=== PATIENT | female | born 1965 | race African-American/Black ===

== ENCOUNTER 2020-09-01 08:04 | Outpatient (REF) | payer MEDICAID, SELFPAY | END 2020-09-01 08:05 | disposition home or self-care (01) | LOC: HO.LAB 08:04 | PROVIDERS: PCP Internal Medicine; Visit Provider Nurse Practitioner Family | DX: M53.3 Sacrococcygeal disorders, not elsewhere classified (principal); E11.40 Type 2 diabetes mellitus with diabetic neuropathy, unspecified; M32.9 Systemic lupus erythematosus, unspecified; G56.03 Carpal tunnel syndrome, bilateral upper limbs; M25.551 Pain in right hip; M25.552 Pain in left hip | CPT/HCPCS: 99202 ==

== ENCOUNTER → 2021-09-13 13:20 | Outpatient (BNVA) | payer OTHER, SELFPAY | PROVIDERS: PCP Internal Medicine; Visit Provider Internal Medicine Rheumatology | DX: M79.7 Fibromyalgia (principal); E11.40 Type 2 diabetes mellitus with diabetic neuropathy, unspecified; M32.9 Systemic lupus erythematosus, unspecified; F32.A Depression, unspecified | CPT/HCPCS: 99212 ==

== ENCOUNTER 2021-10-29 09:41 | Outpatient (REF) | payer OTHER, SELFPAY ==
[2021-10-29 09:50] LABS: MANUAL DIFF FLAG NO
[2021-10-29 10:50] LABS: Basophils Percent Auto 0.7 % (0-2); Eosinophils Absolute Auto 0.2 X10*3/uL (0.0-0.4); Eosinophils Percent Auto 2.8 % (0-4); Hematocrit 39.9 % (37.0-47.0); Hemoglobin 12.9 g/dl (12.0-16.0); Imm Gran Abs Auto 0.01 X10*3/uL (0.00-0.03); Imm Gran Pct Auto 0.2 % (0.0-0.4); Lymphocytes Absolute Auto 2.7 X10*3/uL (1.2-4.9); Lymphocytes Percent Auto 45.1 % (20-40); Mean Corpuscular HGB Conc 32.3 g/dl (31.0-35.0); Mean Corpuscular Hemoglobin 28.9 pg (27.0-33.0); Mean Corpuscular Volume 89.5 fL (80.0-98.0); Mean Platelet Volume 11.1 fL (9.4-12.3); Monocytes Absolute Auto 0.3 X10*3/uL (0.1-1.2); Monocytes Percent Auto 5.5 % (2-11); Neutrophils Absolute Auto 2.8 x10*3/uL (2.0-8.3); Neutrophils Percent Auto 45.7 % (45-73); Platelet Count 227 X10*3/uL (160-400); Red Blood Count 4.46 X10*6/uL (4.20-5.50); Red Cell Distribution Width 14.5 % (11.0-16.0)
[2021-10-29 11:12] LABS: C Reactive Protein 1.07 mg/dL (< or = 0.50); Estimated Glomerular Filt Rate > 60
[2021-11-01 12:07] LABS: Complement C3 131 mg/dL (83-193)
[2021-11-02 22:32] LABS: Anti DNA DS Antibody 2 IU/mL
== END 2021-10-29 09:42 | disposition home or self-care (01) ==
LOC: HO.LAB 09:41
PROVIDERS: PCP Internal Medicine; Visit Provider Internal Medicine Rheumatology
DX: M79.7 Fibromyalgia (principal); M32.9 Systemic lupus erythematosus, unspecified
CPT/HCPCS: 36415; 82565; 85025; 86140; 86160; 86225

== ENCOUNTER → 2022-02-14 13:41 | Outpatient (BNVA) | payer OTHER, SELFPAY | PROVIDERS: PCP Internal Medicine; Visit Provider Internal Medicine Rheumatology | DX: M79.7 Fibromyalgia (principal); M32.9 Systemic lupus erythematosus, unspecified; G56.03 Carpal tunnel syndrome, bilateral upper limbs | CPT/HCPCS: 99212 ==

== ENCOUNTER 2022-06-30 09:18 | Outpatient (REF) | payer OTHER, SELFPAY ==
[2022-06-30 09:28] LABS: MANUAL DIFF FLAG NO
[2022-06-30 10:30] LABS: Basophils Percent Auto 0.7 % (0-2); Eosinophils Absolute Auto 0.2 X10*3/uL (0.0-0.4); Eosinophils Percent Auto 2.8 % (0-4); Hematocrit 40.5 % (37.0-47.0); Hemoglobin 12.9 g/dl (12.0-16.0); Imm Gran Abs Auto 0.02 X10*3/uL (0.00-0.03); Imm Gran Pct Auto 0.3 % (0.0-0.4); Lymphocytes Absolute Auto 2.6 X10*3/uL (1.2-4.9); Lymphocytes Percent Auto 43.3 % (20-40); Mean Corpuscular HGB Conc 31.9 g/dl (31.0-35.0); Mean Corpuscular Hemoglobin 28.4 pg (27.0-33.0); Mean Platelet Volume 11.7 fL (9.4-12.3); Monocytes Absolute Auto 0.4 X10*3/uL (0.1-1.2); Monocytes Percent Auto 6.9 % (2-11); Neutrophils Absolute Auto 2.8 x10*3/uL (2.0-8.3); Platelet Count 198 X10*3/uL (160-400); Red Blood Count 4.55 X10*6/uL (4.20-5.50); Red Cell Distribution Width 13.6 % (11.0-16.0); White Blood Count 6.1 X10*3/uL (4.8-10.8)
[2022-06-30 11:17] LABS: Erythrocyte Sedimentation Rate 63 MM/HR (0-20)
[2022-06-30 11:18] LABS: C Reactive Protein 1.68 mg/dL (< or = 0.50); Estimated Glomerular Filt Rate > 60
[2022-06-30 11:49] LABS: Creatinine Urine 161.05 mg/dL; Total Protein Urine Random 16 mg/dL (<12)
== END 2022-06-30 09:19 | disposition home or self-care (01) ==
LOC: HO.LAB 09:18
PROVIDERS: PCP Internal Medicine; Visit Provider Internal Medicine Rheumatology
DX: M32.9 Systemic lupus erythematosus, unspecified (principal)
CPT/HCPCS: 36415; 82565; 84156; 85025; 85652; 86140

== ENCOUNTER → 2022-07-05 10:52 | Outpatient (BNVA) | payer OTHER, SELFPAY | PROVIDERS: PCP Internal Medicine; Visit Provider Internal Medicine Rheumatology | DX: M79.7 Fibromyalgia (principal); G56.03 Carpal tunnel syndrome, bilateral upper limbs; M47.816 Spondylosis without myelopathy or radiculopathy, lumbar region; M32.9 Systemic lupus erythematosus, unspecified | CPT/HCPCS: 99212 ==

== ENCOUNTER 2022-08-11 01:57 | Emergency (ER) | payer OTHER, SELFPAY ==
--- NOTE | ~2022-08-11 | CT_ITS ---
EXAMINATION: CT ABDOMEN AND PELVIS WITHOUT CONTRAST CLINICAL INFORMATION: Abdominal pain. History of pancreatitis. COMPARISON: None available. TECHNIQUE: Multidetector volumetric imaging was performed from the superior aspect of the liver through the pubic symphysis. Sagittal and coronal reformatted images were obtained on the technologist's workstation. This CT examination was performed using dose optimization techniques as appropriate, variously including the following: *Automated exposure control *Adjustment of mA and/or kV according to patient size (this includes techniques or standardized protocols for targeted exams where dose is matched to indication/reason for exam; i.e. extremities or head) *Use of iterative reconstruction technique DLP: 962 mGy-cm FINDINGS: LUNG BASES: The visualized lung bases are unremarkable. LIVER, GALLBLADDER, AND BILIARY TREE: The liver is normal in size, shape, and attenuation. No focal hepatic lesion or biliary ductal dilatation is present. Cholecystectomy. PANCREAS: Unremarkable. SPLEEN: Unremarkable. ADRENAL GLANDS: There is a 2.0 cm nodule in the left adrenal gland measuring -8 HU compatible with a benign lipid rich adenoma. No follow-up imaging recommended. Normal right adrenal gland. KIDNEYS AND URETERS: The kidneys are normal in size, shape, and attenuation. No hydronephrosis, hydroureter, or calculi seen. There is a 2.7 cm simple fluid attenuating cyst in the lower pole of left kidney. No follow-up imaging recommended. No perinephric stranding. BLADDER: Unremarkable. GASTROINTESTINAL TRACT: The small and large bowel are unremarkable. The appendix is unremarkable. ABDOMINAL WALL: No significant hernia is appreciated. LYMPH NODES: Normal. VASCULAR: Unremarkable. PELVIC VISCERA: There are a few uterine fibroids which measure up to 4.3 cm. No adnexal abnormalities. OSSEOUS STRUCTURES: No acute or suspicious osseous abnormalities. CT/CT abdomen pelvis wo IV con IMPRESSION: * No acute findings within the abdomen or pelvis to explain the patient's symptomatology. Specifically, the pancreas is unremarkable. * Cholecystectomy. * Leiomyomatous uterus. .
[2022-08-11 02:04] VITALS: BP 126/78; PULSE 103; RESP 18; TEMP 36.8; O2SAT 100; BMI 38.4
[2022-08-11 02:09] VITALS: BP 121/78; PULSE 104; RESP 18; O2SAT 98
--- NOTE | 2022-08-11 02:38 | ED_ITS ---
HPI - Abdominal Pain General Chief Complaint: Abdominal Pain Stated Complaint: pancreatic pain Time Seen by Provider: 08/11/22 02:37 Source: patient Mode of arrival: ambulatory Limitations: no limitations History of Present Illness HPI narrative: Patient history of pancreatitis more than 5 years ago comes here for diffuse abdominal pain mostly in upper abdomen associated with diarrhea for last 1 month 6 to 7 times a day watery stool and nausea no vomiting pain does not get worse after eating food patient was seen by PCP earlier labs were done and had slightly elevated lipase to 83 patient went to [facility] for [facility] scan which was not done and patient came here. Patient is status post cholecystectomy no urine complaints no fever or chills Related Data Home Medications Medication Instructions Recorded Confirmed metformin 1,000 mg tablet 1,000 mg PO BID 09/01/20 07/05/22 olmesartan 40 mg tablet 40 mg PO DAILY 09/01/20 07/05/22 clonidine HCl 0.2 mg tablet 0.2 mg PO BID PRN 09/13/21 07/05/22 duloxetine 60 mg capsule,delayed 60 mg PO DAILY 09/13/21 07/05/22 release insulin glargine 100 unit/mL (3 10 unit subcut QPM 09/13/21 07/05/22 mL) subcutaneous pen (Lantus Solostar U-100 Insulin) insulin lispro 100 unit/mL 1 sliding scale dose subcut 09/13/21 07/05/22 subcutaneous pen (Humalog KwikPen USEASDIRECTD (U-100) Insulin) amlodipine 5 mg tablet 5 mg PO DAILY 02/14/22 07/05/22 hydrochlorothiazide 50 mg tablet 50 mg PO DAILY 07/05/22 07/05/22 oxycodone 5 mg tablet 5 mg PO Q8H PRN pain 07/05/22 07/05/22 quetiapine 50 mg tablet 50 mg PO BEDTIME 07/05/22 07/05/22 zolpidem 10 mg tablet 10 mg PO BEDTIME PRN 07/05/22 07/05/22 Previous Rx's Medication Instructions Recorded hydroxychloroquine 200 mg tablet 200 mg PO BID #180 tabs 10/31/21 gabapentin 600 mg tablet 1,200 mg PO TID #180 tabs 04/15/22 cyclobenzaprine 10 mg tablet 10 mg PO BEDTIME PRN muscle spasm 07/05/22 #30 tabs lidocaine 5 % topical patch 1 patch topical DAILY #30 ea 07/15/22 dicyclomine 20 mg tablet 20 mg PO QID PRN abdominal pain 08/11/22 #20 tabs Allergies Allergy/AdvReac Type Severity Reaction Status Date / Time trazodone AdvReac Severe hives Verified 07/05/22 11:09 Review of Systems Review of Systems Yes all other systems are reviewed and are negative [facility] Past Medical History Surgical History Hx laparoscopic cholecystectomy Hx of section Hx of tubal ligation Family History Family History Brother Diabetes Mother Hypertension Breast cancer, Onset Age: 49 Father Hypertension Maternal Grandmother Breast cancer Maternal Aunt Breast cancer, Onset Age: 53 Social History Social History Household Members: Family Housing: House Alcohol intake: never Patient Tobacco Use Status: Current someday Tobacco user Tobacco use type: Cigarette Cigarette Packs Per Day: 0.5 Smoked in Last 30 Days: Yes Use of substances other than those prescribed or required for medical reasons: No Advance Directives: No Advance Directives Information Provided: No Patient : No service: No Current occupational status: unemployed Physical Exam ED Vital Signs: Vital Signs - 24 hr 08/11/22 02:04 08/11/22 02:09 08/11/22 04:00 Temperature 98.3 F 98.6 F Pulse Rate 103 H 104 H 86 Respiratory Rate 18 18 17 Blood Pressure 126/78 121/78 121/72 Pulse Oximetry 100 98 99 Oxygen Delivery Method Room Air Room Air Room Air 08/11/22 05:14 Temperature 97.9 F Pulse Rate 85 Respiratory Rate Blood Pressure 111/64 Pulse Oximetry 96 Oxygen Delivery Method Room Air BMI result Body Mass Index 38.4 Appearance: Alert. Oriented X3. No acute distress. Obese Eyes: PERRLA, No Nystagmus ENT: Pharynx normal. Oral Mucosa moist Neck: Normal inspection. Neck supple. CVS: Normal heart rate and rhythm. Pulses normal. Respiratory: No respiratory distress. Equal air entry bilateral, no wheezing/rales/rhonchi Abdomen: Soft mild upper abdominal tenderness no tenderness and right upper quadrant no guarding no rebound tenderness Bowel sounds are present, no mass palpable, no CVA tenderness Skin: Skin warm and dry. Normal skin color. Normal skin turgor. Extremities: No lower extremity edema. No calf tenderness Neuro: Oriented X 3. No motor deficit. No sensory deficit.No cerebellar signs , cranial nerves II-XII intact Medical Decision Making Medical Decision Making [facility] Narrative: Patient with nonspecific complaints with chronic diarrhea clinically does not look like pancreatitis CT scan negative for inflammation of the pancreas area lipase was normal will discharge patient home Bentyl for chronic abdominal pain Differential Diagnosis Gastritis/pancreatitis/gastroenteritis Lab Data [facility] Lab Attestation statement: I reviewed the patient's lab results. 08/11/22 03:12 08/11/22 03:12 Labs: Lab Results 08/11/22 08/11/22 Range/Units 03:12 03:12 WBC 7.0 (4.8-10.8) X10*3/uL RBC 4.70 (4.20-5.50) X10*6/uL Hgb 13.3 (12.0-16.0) g/dl Hct 41.4 (37.0-47.0) % MCV 88.1 (80.0-98.0) fL MCH 28.3 (27.0-33.0) pg MCHC 32.1 (31.0-35.0) g/dl RDW 13.3 (11.0-16.0) % Plt Count 201 (160-400) X10*3/uL MPV 11.1 (9.4-12.3) fL Immature Gran % (Auto) 0.3 (0.0-0.4) % Neut % (Auto) 43.2 L (45-73) % Lymph % (Auto) 47.1 H (20-40) % Coryell % (Auto) 6.5 (2-11) % Eos % (Auto) 2.3 (0-4) % Baso % (Auto) 0.6 (0-2) % Lymph # (Auto) 3.3 (1.2-4.9) X10*3/uL [place]ell # (Auto) 0.5 (0.1-1.2) X10*3/uL Eos # (Auto) 0.2 (0.0-0.4) X10*3/uL Baso # (Auto) 0.0 (0.0-0.2) X10*3/uL Abs Immat Gran (auto) 0.02 (0.00-0.03) X10*3/uL Absolute Neuts (auto) 3.0 (2.0-8.3) x10*3/uL Absolute Nucleated RBC 0.000 (0.0-0.012) X10*3/uL Nucleated RBC % (auto) 0.0 (0.0-0.2) /100WBC Sodium 141 (135-145) mmol/L Potassium 3.6 (3.3-5.1) mmol/L Chloride 103 (96-108) mmol/L Carbon Dioxide 25 (22-29) mmol/L Anion Gap 17 (12-20) BUN 16 (9-16) mg/dL Creatinine 1.39 (0.5-1.4) mg/dL Estim Creat Clear Calc 62.7 Estimated GFR 39 Random Glucose 348 H (60-115) mg/dL Calcium 10.1 (8.4-10.2) mg/dL Total Bilirubin 0.7 (0.0-1.0) mg/dL AST 16 (5-31) U/L ALT 16 (0-31) U/L Alkaline Phosphatase 100 (39-117) U/L Total Protein 8.1 H (6.5-8.0) g/dL Albumin 3.9 (3.5-5.0) g/dL Lipase 68 (8-78) U/L Medications Administered Discontinued Medications Generic Name Dose Route Start Last Admin Trade Name Freq PRN Reason Stop Dose Admin Sodium Chloride 1,000 mls @ 999 mls/hr 08/11/22 02:58 08/11/22 04:47 Ns IV 08/11/22 03:58 Infused .Q1H1M ONE Infusion Morphine Sulfate 4 mg 08/11/22 02:58 08/11/22 03:13 Morphine Sulfate 4 Mg/Ml Cartridge IVPUSH 08/11/22 02:59 4 mg ONCE ONE Administration Protocol Ondansetron HCl 4 mg 08/11/22 02:58 08/11/22 03:13 Ondansetron Hcl 4 Mg/2 Ml Vial IVPUSH 08/11/22 02:59 4 mg ONCE ONE Administration Discharge Plan Discharge Clinical Impression: Abdominal pain, chronic, generalized Patient Disposition: Home, Self-Care Instructions: Irritable Bowel Syndrome (ED), Chronic Abdominal Pain (ED) Additional Instructions: Cause of abdominal pain is not very clear likely IBS Take Bentyl 1 tablet every 8 hours as needed for chronic pain Follow-up with your PCP Prescriptions: New dicyclomine 20 mg tablet 20 mg PO QID PRN (Reason: abdominal pain) Qty: 20 0RF No Action hydroxychloroquine 200 mg tablet 200 mg PO BID Qty: 180 2RF gabapentin 600 mg tablet 1,200 mg PO TID Qty: 180 3RF lidocaine 5 % adhesive patch,medicated 1 patch topical DAILY Qty: 30 5RF Rx Instructions: leave patch on for 12 hours and then remove metformin 1,000 mg tablet 1,000 mg PO BID olmesartan 40 mg tablet 40 mg PO DAILY clonidine HCl 0.2 mg tablet 0.2 mg PO BID PRN insulin glargine [Lantus Solostar U-100 Insulin] 100 unit/mL (3 mL) insulin pen 10 unit subcut QPM insulin lispro [Humalog KwikPen Insulin] 100 unit/mL insulin pen 1 sliding scale dose subcut USEASDIRECTD duloxetine 60 mg capsule,delayed release(DR/EC) 60 mg PO DAILY amlodipine 5 mg tablet 5 mg PO DAILY quetiapine 50 mg tablet 50 mg PO BEDTIME oxycodone 5 mg tablet 5 mg PO Q8H PRN (Reason: pain) hydrochlorothiazide 50 mg tablet 50 mg PO DAILY zolpidem 10 mg tablet 10 mg PO BEDTIME PRN cyclobenzaprine 10 mg tablet 10 mg PO BEDTIME PRN (Reason: muscle spasm) Qty: 30 1RF
[2022-08-11 03:19] LABS: MANUAL DIFF FLAG NO
[2022-08-11 03:20] LABS: Basophils Percent Auto 0.6 % (0-2); Eosinophils Absolute Auto 0.2 X10*3/uL (0.0-0.4); Eosinophils Percent Auto 2.3 % (0-4); Hematocrit 41.4 % (37.0-47.0); Hemoglobin 13.3 g/dl (12.0-16.0); Imm Gran Abs Auto 0.02 X10*3/uL (0.00-0.03); Imm Gran Pct Auto 0.3 % (0.0-0.4); Lymphocytes Absolute Auto 3.3 X10*3/uL (1.2-4.9); Lymphocytes Percent Auto 47.1 % (20-40); Mean Corpuscular HGB Conc 32.1 g/dl (31.0-35.0); Mean Corpuscular Hemoglobin 28.3 pg (27.0-33.0); Mean Corpuscular Volume 88.1 fL (80.0-98.0); Mean Platelet Volume 11.1 fL (9.4-12.3); Monocytes Absolute Auto 0.5 X10*3/uL (0.1-1.2); Monocytes Percent Auto 6.5 % (2-11); Neutrophils Percent Auto 43.2 % (45-73); Platelet Count 201 X10*3/uL (160-400); Red Cell Distribution Width 13.3 % (11.0-16.0)
[2022-08-11 03:35] LABS: Alanine Aminotransferase 16 U/L (0-31); Albumin Level 3.9 g/dL (3.5-5.0); Alkaline Phosphatase 100 U/L (39-117); Anion Gap 17 (12-20); Aspartate Amino Transferase 16 U/L (5-31); Bilirubin Total 0.7 mg/dL (0.0-1.0); Blood Urea Nitrogen 16 mg/dL (9-16); Calcium 10.1 mg/dL (8.4-10.2); Carbon Dioxide 25 mmol/L (22-29); Chloride 103 mmol/L (96-108); Creatinine Clr Calc Pharmacy 62.7; Estimated Glomerular Filt Rate 39; Glucose Random 348 mg/dL (60-115); Lipase 68 U/L (8-78); Potassium 3.6 mmol/L (3.3-5.1); Sodium 141 mmol/L (135-145); Total Protein 8.1 g/dL (6.5-8.0)
[2022-08-11 04:00] VITALS: BP 121/72; PULSE 86; RESP 17; TEMP 37; O2SAT 99
[2022-08-11 05:14] VITALS: BP 111/64; PULSE 85; TEMP 36.6; O2SAT 96
== END 2022-08-11 05:26 | disposition home or self-care (01) ==
PROVIDERS: Emergency Provider Internal Medicine; PCP Internal Medicine
DX: G89.29 Other chronic pain (principal); R10.84 Generalized abdominal pain; I10 Essential (primary) hypertension; E11.40 Type 2 diabetes mellitus with diabetic neuropathy, unspecified; D68.62 Lupus anticoagulant syndrome; Z79.4 Long term (current) use of insulin; Z79.899 Other long term (current) drug therapy
CPT/HCPCS: 36415; 74176; 80053; 83690; 85025; 96361; 96374; 96375; 99284; 99285; J2270; J2405

== ENCOUNTER 2022-09-13 11:00 | Outpatient (RCR) | payer OTHER, SELFPAY ==
--- NOTE | 2022-08-23 12:04 | MHC.PT.EP ---
[facility] [place] [facility] [place] [facility] [place] [facility] [address] Tr[address] [phone] F: [phone] F: [phone] F: [phone] F: [phone] Physical Therapy Plan of Care Date of Evaluation: Date of Surgery: n/a Diagnosis: OA of lumbar spine Assessment: Patient is a 57 year old female presenting to PT with complaints of pain in her low back. Pt reports onset of pain began 2 years ago due to insidious onset. She presents today with impairments in pain, lumbar ROM, hip strength, posture. Pt's current occupation is none disabled, with baseline physical activities including ambulating, ADLs, standing. 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 Clinical presentation today is most consistent with signs and sx associated with low back pain and pt will benefit from skilled PT 2 week x 4 weeks to address the following problems and impairments noted upon evaluation: pain, lumbar ROM, hip strength, posture. These problems limit the patient with the following functional activities: standing, walking, stair negotiation, any mobile activity . The prescribed treatment plan of care is medically necessary. Co-morbidities of fibromyalgia were identified and taken into considerations of plan of care. Pt was educated on HEP, role of PT, prognosis, POC. Frequency and Duration: The patient will be seen 2 x week x 4 weeks Short Term Goals: Pt will demonstrate improved hip MMT strength by 1/3 grade in 2 weeks for improved lumbopelvic stability. Pt will be able to stand upright without cues and min to mod pain in 2 weeks. Pt will demonstrate improved hip MMT strength by 1/3 grade in 2 weeks for improved functional mobility. Intermediate Goals: Pt will demonstrate improved Keeley score by 10% in 4 weeks for improved functional mobility. Pt will no longer need to rely on rolling chair at home for mobility in 4 weeks for improved access to her home. Pt will demonstrate ability to complete ADLs with min to no pain in 4 weeks for improved independence at home. Treatment Plan: Modalities to reduce pain, spasms and effusion. Manual therapy to restore motion and function. Therapeutic exercise to improve strength and flexibility. Neuromuscular re-education for posture and balance. Therapeutic activities to return to functional activities of daily living. Electronically signed by: Roxana Campo, PT, DPT, ATC Please sign and return to therapist. Thank you for your referral.
--- NOTE | 2022-09-28 16:05 | MHC.PT.DC ---
[facility] [place] Office [place] Office [place] Office [address] [phone] F: [phone] F: [phone] F: [phone] F: [phone] Physical Therapy Discharge Report Diagnosis: OA of lumbar spine Date of Surgery: n/a Date of Evaluation: 08/23/22 Date of Discharge: 09/28/22 Treatments to Date: 4 Cancellations to Date: 2 No Shows to Date: 2 Discharge Status: Visit Non-compliance Discharge Summary: Pt has failed to comply with [facility] [place] policy and no showed 2 appointments. Pt to be d/c at this time per policy. Electronically signed by: Roxana Campo PT, DPT, ATC Please sign and return to therapist. Thank you for your referral.
== END 2022-09-28 16:05 | disposition home or self-care (01) ==
LOC: HO.PTCHIC 11:00
PROVIDERS: PCP Internal Medicine; Visit Provider Internal Medicine Rheumatology
DX: M47.816 Spondylosis without myelopathy or radiculopathy, lumbar region (principal)
CPT/HCPCS: 97110; 97140; 97162

== ENCOUNTER 2022-11-01 10:01 | Outpatient (REF) | payer OTHER, SELFPAY ==
--- NOTE | ~2022-11-01 | XR_ITS ---
EXAMINATION: XR LUMBOSACRAL SPINE CLINICAL INFORMATION: Reason for Exam M47.816 - Spondylosis without myelopathy or radiculopathy, lumbar region COMPARISON: None TECHNIQUE: 3 views of the lumbar spine FINDINGS: 5 nonrib-bearing lumbar-type vertebral bodies. Vertebral body heights are maintained. Alignment is maintained. Mild degenerative disc disease at L5-S1 with loss of disc space height, degenerative endplate spurring and facet arthropathy. Right upper quadrant cholecystectomy clips. XR/XR lumbar spine 2-3V IMPRESSION: Mild degenerative disc disease at L5-S1 with loss of disc space height, degenerative endplate spurring and facet arthropathy.
[2022-11-01 10:15] LABS: MANUAL DIFF FLAG NO
[2022-11-01 10:33] LABS: Basophils Absolute Auto 0.1 X10*3/uL (0.0-0.2); Basophils Percent Auto 0.7 % (0-2); Eosinophils Absolute Auto 0.2 X10*3/uL (0.0-0.4); Eosinophils Percent Auto 2.9 % (0-4); Hematocrit 43.5 % (37.0-47.0); Hemoglobin 13.7 g/dl (12.0-16.0); Imm Gran Abs Auto 0.01 X10*3/uL (0.00-0.03); Imm Gran Pct Auto 0.1 % (0.0-0.4); Lymphocytes Absolute Auto 3.8 X10*3/uL (1.2-4.9); Lymphocytes Percent Auto 53.7 % (20-40); Mean Corpuscular HGB Conc 31.5 g/dl (31.0-35.0); Mean Corpuscular Hemoglobin 28.7 pg (27.0-33.0); Mean Platelet Volume 11.2 fL (9.4-12.3); Monocytes Absolute Auto 0.5 X10*3/uL (0.1-1.2); Monocytes Percent Auto 7.4 % (2-11); Neutrophils Absolute Auto 2.5 x10*3/uL (2.0-8.3); Neutrophils Percent Auto 35.2 % (45-73); Platelet Count 222 X10*3/uL (160-400); Red Blood Count 4.78 X10*6/uL (4.20-5.50); Red Cell Distribution Width 14.1 % (11.0-16.0); White Blood Count 7.1 X10*3/uL (4.8-10.8)
[2022-11-01 10:58] LABS: Creatinine Urine 93.77 mg/dL; Protein/Creatinine Ratio, Ur 0.12 (<0.2); Total Protein Urine Random 11 mg/dL (<12)
[2022-11-01 11:08] LABS: C Reactive Protein 0.99 mg/dL (< or = 0.50); Estimated Glomerular Filt Rate > 60
[2022-11-01 11:15] LABS: Erythrocyte Sedimentation Rate 38 MM/HR (0-20)
== END 2022-11-01 10:02 | disposition home or self-care (01) ==
LOC: HO.XRAY 10:01
PROVIDERS: PCP Internal Medicine; Visit Provider Internal Medicine Rheumatology
DX: M47.816 Spondylosis without myelopathy or radiculopathy, lumbar region (principal); M32.9 Systemic lupus erythematosus, unspecified
CPT/HCPCS: 36415; 72100; 82565; 82570; 84156; 85025; 85652; 86140

== ENCOUNTER 2022-11-07 08:07 | Outpatient (AMB) | payer OTHER, SELFPAY ==
[2022-11-07 08:19] VITALS: BP 124/76; PULSE 89; TEMP 36.4; O2SAT 97; BMI 39.2
--- NOTE | 2022-11-07 08:19 | A.OFFVIS_ITS ---
Intake Vital Signs 11/07/22 08:19 Height 5 ft 9 in Weight 265 lb 6.985 oz BMI 39.2 BP 124/76 Blood Pressure Location Rt brachial Position Sitting Pulse 89 Pulse Source Pulse Oximeter Temp 97.5 F Temp Source Skin Pulse Oximetry (%) 97 Intake Visit Reasons: sle/OAReschedule 11/03 appt, granddaughter appt@10 Intake Note: Pt seen today for follow up on SLE and OA. Reports same pains and aches in back and knees. 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: No Accompanied by: Self / Same As Patient Allergies trazodone Adverse Reaction (Severe, Verified 11/07/22 08:21) hives Medication List - Last Reconciled 11/07/22 by Home Warner MD amlodipine 5 mg PO DAILY clonidine HCl 0.2 mg PO BID PRN cyclobenzaprine 10 mg PO BEDTIME PRN dapagliflozin propanediol (Farxiga) 10 mg PO DAILY dicyclomine 20 mg PO QID PRN duloxetine 20 mg PO BID ergocalciferol (vitamin D2) 1,250 mcg PO QWEEK gabapentin 1,200 mg (2 x 600 mg) PO TID hydrochlorothiazide 50 mg PO DAILY hydroxychloroquine 200 mg PO BID insulin aspart U-100 subcut insulin glargine (Lantus Solostar U-100 Insulin) 10 units subcut QPM lidocaine 5% 1 patch topical DAILY metformin 1,000 mg PO BID mirtazapine 30 mg PO BEDTIME olmesartan 40 mg PO DAILY oxycodone mg PO prazosin 1 mg PO BEDTIME quetiapine 50 mg PO BEDTIME triamcinolone acetonide 0.1% topical zolpidem 10 mg PO BEDTIME PRN HPI HPI Comments History of Present Illness Details The patient returns today for evaluation of her SLE, fibromyalgia, and osteoarthritis. She still gets pain in the knees and lower back. This is more painful when she is more physically active. She does try to walk about a mile a day at the [place] her home. She walks on the track. She remains on hydroxychloroquine 200 mg b.i.d., gabapentin 1200 t.i.d., duloxetine 40 mg daily, cyclobenzaprine at night if needed, and 5 mg oxycodone twice a day if needed. She takes the oxycodone 10 mg tablets and cuts them in half. She has not had any recent skin rashes, oral ulcers or fevers. No blood clots recently. [facility] Surgical History Hx laparoscopic cholecystectomy Hx of tubal ligation Hx of section Family History Brother Diabetes Mother Hypertension Breast cancer, Onset Age: 49 Father Hypertension Maternal Grandmother Breast cancer Maternal Aunt Breast cancer, Onset Age: 53 Social History Household Members: Family Housing: House Alcohol intake: never Patient Tobacco Use Status: Current someday Tobacco user Tobacco use type: Cigarette Cigarette Packs Per Day: 0.5 service: No Current occupational status: unemployed Review of Systems Const Details: Negative for appetite change, weight change, fever, chills, malaise and fatigue Eyes Details: Negative for vision change, dry eyes,headaches and dizziness ENT Details: Negative for hearing change, tinnitus, oral ulcer, nose bleeds and oral dryness. Card Details: Negative chest pain, edema and syncope Resp Details: Negative for SOB, cough and wheezing GI Details: Negative indigestion/heartburn, nausea, abdominal pain, bowel changes, diarrhea, constipation and bloody stool. Skin/Breast Details: Negative for itching, rash, hives, sun sensitivity, and skin cancer Neuro Details: Her hand numbness comes and goes. She has known carpal tunnel syndrome. She was going to consider surgery this summer but got busy and did not schedule it.Negative for epilepsy, palsy, stroke, changes in speech and weakness Psych Details: panic attacks and anxiety are better with current treatment. She denies any sedation during the daytime with the gabapentin. Endo Details: Negative for polyuria and polydypsia Camilo/Lymph Details: Negative for excessive bruising or bleeding. Physical Exam Vital Signs: Last Vital Signs Temp 97.5 F 11/07/22 08:19 Pulse 89 11/07/22 08:19 BP 124/76 11/07/22 08:19 Pulse Ox 97 11/07/22 08:19 BMI result Body Mass Index 39.2 APPEARANCE: Patient in no acute distress EYES no redness, pupils equal and reactive to light, eyelids normal NOSE/SINUS:? Airflow through both nares, no nasal discharge, no bleeding THROAT:? Oral mucosa moist, no ulcerations NECK:? No thyromegaly or masses, no adenopathy, trachea midline. HEART:? Regulrar rhythm, S1-S2 heard, no murmurs, rubs or gallops. LUNG:? Clear to percussion and auscultation ABD:? Normal bowel sounds, no organomegaly, masses or tenderness. EXTREMITIES:? No edema, no calf tenderness, normal peripheral pulses. NEURO:? Oriented and alert x3.? No focal weakness.? Reflexes symmetric.? Gait normal. SKIN:?No other inflammatory or neoplastic lesions.? Normal color and turgor JOINT EXAM:?? Cervical Spine:? Mild pain with extremes of motion.? Mild cervical muscle tenderness. Thoracic Spine:.? No scoliosis.? No tenderness on palpation. Lumbar Spine:.? Alignment normal.? Lumbar pain with flexion at 45 degrees with some mild to moderate spinal and paraspinal tenderness. Chest Wall:.? No tenderness, swelling, increased warmth or erythema. Hands:.? Normal pain-free range of motion with tenderness across all the little joints but no swelling.? No triggering, no thenar atrophy.? She has questionable sensory loss in the fingertips. Wrists:.? Mild pain with extremes of 80 degrees flexion extension with some slight tenderness but no swelling, increased warmth or erythema. Elbows:. Normal pain-free range of motion without tenderness, swelling, increased warmth or erythema. Shoulders:.?? Full range of motion with some trapezial pain with extremes of motion.? Mild anterior and posterior tenderness without adenopathy, weakness, swelling, increased warmth or erythema. Hips:.? Full range of motion without pain. Hip bursa:.? No tenderness. Knees:.?? Normal pain-free range of motion with mild medial tenderness and mild patellofemoral crepitus.? No effusions, swelling, increased warmth or erythema.? Ankles:.? Normal pain-free range of motion with mild tenderness but no swelling, increased warmth or erythema. Feet:.? Normal pain-free range of motion without tenderness, swelling, increased warmth or erythema. Tender points:?Mild tenderness to digital palpation at the occiput, trapezius, second rib, lateral epicondyle, knees, greater trochanter area bilaterally. Results Reviewed Results Reviewed: Laboratory Tests 10/29/21 11/01/22 11/01/22 09:49 10:14 10:14 WBC 7.1 Hgb 13.7 ESR 38 H Creatinine 0.96 C-Reactive Protein 0.99 H Protein/Creatinin Ratio Double Strand DNA Ab 2 Complement C3 131 Complement C4 20 11/01/22 10:17 WBC Hgb ESR Creatinine C-Reactive Protein Protein/Creatinin Ratio 0.12 Double Strand DNA Ab Complement C3 Complement C4 [place] [address] XRay Report Signed Patient: Galina Doyle MR#: [id number] : 1965 Acct:[id number] Age/Sex: 57 / F ADM Date: 11/01/[address]: Home Warner MD Ordering Physician: Home Warner MD Date of Service: 11/01/22 Procedure(s): XR lumbar spine 2-3V Accession Number(s): [id number] cc: Darrel Tony MD; Home Warner MD~ EXAMINATION: XR LUMBOSACRAL SPINE CLINICAL INFORMATION: Reason for Exam M47.816 - Spondylosis without myelopathy or radiculopathy, lumbar region COMPARISON: None TECHNIQUE: 3 views of the lumbar spine FINDINGS: 5 nonrib-bearing lumbar-type vertebral bodies. Vertebral body heights are maintained. Alignment is maintained. Mild degenerative disc disease at L5-S1 with loss of disc space height, degenerative endplate spurring and facet arthropathy. Right upper quadrant cholecystectomy clips. XR/XR lumbar spine 2-3V IMPRESSION: Mild degenerative disc disease at L5-S1 with loss of disc space height, degenerative endplate spurring and facet arthropathy. Dictated By: Giselle Maurice MD Assessment & Plan Assessment & Plan (1) Osteoarthritis of lumbar spine: Code(s): M47.816 - Spondylosis without myelopathy or radiculopathy, lumbar region (2) Fibromyalgia: Code(s): M79.7 - Fibromyalgia (3) Carpal tunnel syndrome, bilateral: Comment: EMG July 2015: moderate to severe bilateral CTS Code(s): G56.03 - Carpal tunnel syndrome, bilateral upper limbs (4) Long-term use of hydroxychloroquine: Code(s): Z79.899 - Other care home (current) drug therapy (5) Lupus: Comment: DISCOID LESIONS, SUB-ACUTE SKIN LESIONS ARTHRALGIAS, MILD PROTEINURIA - resolved; kidney bx 10/2019 - class II nephritis(sees Dr. 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 06/27, 06/28 Code(s): M32.9 - Systemic lupus erythematosus, unspecified Plan SLE with no clear signs of active disease presently. The minimal proteinuria she had has improved. She did have a kidney biopsy 3 years ago that showed some mild class 2 lupus nephritis. The proteinuria now is not detectable. GFR remains stable. She does not have any skin manifestations or mucosal manifestations of SLE. There still are widespread tender spots consistent with her fibromyalgia. She gets low back pain knee pain osteoarthritis. I encouraged her to continue with the exercises she learned in PT. We will stay with current treatment. Follow-up in 6 months is recommended Coding Level of Care Code Est Pt Level 3 (09911) Diagnoses Osteoarthritis of lumbar spine M47.816 Fibromyalgia M79.7 Carpal tunnel syndrome, bilateral G56.03 Long-term use of hydroxychloroquine Z79.899 Lupus M32.9
== END 2022-11-07 08:46 | disposition home or self-care (01) ==
PROVIDERS: PCP Internal Medicine; Visit Provider Internal Medicine Rheumatology
DX: M47.816 Spondylosis without myelopathy or radiculopathy, lumbar region (principal); M79.7 Fibromyalgia; G56.03 Carpal tunnel syndrome, bilateral upper limbs; Z79.899 Other long term (current) drug therapy; M32.9 Systemic lupus erythematosus, unspecified
CPT/HCPCS: 99213

== ENCOUNTER → 2022-11-07 08:07 | Outpatient (BNVA) | payer OTHER, SELFPAY | PROVIDERS: PCP Internal Medicine; Visit Provider Internal Medicine Rheumatology | DX: M32.9 Systemic lupus erythematosus, unspecified (principal); M79.7 Fibromyalgia; M47.816 Spondylosis without myelopathy or radiculopathy, lumbar region; G56.03 Carpal tunnel syndrome, bilateral upper limbs; Z79.891 Long term (current) use of opiate analgesic | CPT/HCPCS: 99212 ==

== ENCOUNTER 2023-05-09 09:06 | Outpatient (REF) | payer MEDICARE, SELFPAY ==
[2023-05-09 10:36] LABS: MANUAL DIFF FLAG NO
[2023-05-09 10:53] LABS: Basophils Percent Auto 0.7 % (0-2); Eosinophils Absolute Auto 0.2 X10*3/uL (0.0-0.4); Eosinophils Percent Auto 2.8 % (0-4); Hematocrit 41.4 % (37.0-47.0); Hemoglobin 13.6 g/dl (12.0-16.0); Imm Gran Abs Auto 0.02 X10*3/uL (0.00-0.03); Imm Gran Pct Auto 0.4 % (0.0-0.4); Lymphocytes Absolute Auto 2.3 X10*3/uL (1.2-4.9); Lymphocytes Percent Auto 39.5 % (20-40); Mean Corpuscular HGB Conc 32.9 g/dl (31.0-35.0); Mean Corpuscular Hemoglobin 28.9 pg (27.0-33.0); Mean Corpuscular Volume 88.1 fL (80.0-98.0); Mean Platelet Volume 11.8 fL (9.4-12.3); Monocytes Absolute Auto 0.3 X10*3/uL (0.1-1.2); Monocytes Percent Auto 5.8 % (2-11); Neutrophils Absolute Auto 2.9 x10*3/uL (2.0-8.3); Neutrophils Percent Auto 50.8 % (45-73); Platelet Count 195 X10*3/uL (160-400); Red Cell Distribution Width 13.3 % (11.0-16.0); White Blood Count 5.7 X10*3/uL (4.8-10.8)
[2023-05-09 11:24] LABS: Alanine Aminotransferase 13 U/L (0-31); Albumin Level 3.7 g/dL (3.5-5.0); Alkaline Phosphatase 105 U/L (39-117); Anion Gap 12 (12-20); Aspartate Amino Transferase 12 U/L (5-31); Bilirubin Total 0.6 mg/dL (0.0-1.0); Blood Urea Nitrogen 8 mg/dL (9-16); C Reactive Protein 1.05 mg/dL (< or = 0.50); Calcium 9.6 mg/dL (8.4-10.2); Carbon Dioxide 23 mmol/L (22-29); Chloride 108 mmol/L (96-108); Estimated Glomerular Filt Rate > 60; Glucose Random 272 mg/dL (60-115); Potassium 4.2 mmol/L (3.3-5.1); Sodium 139 mmol/L (135-145); Total Protein 8.2 g/dL (6.5-8.0); Uric Acid 4.2 mg/dL (2.4-5.7)
[2023-05-09 11:25] LABS: Erythrocyte Sedimentation Rate 38 MM/HR (0-20); Rheumatoid Factor < 13.0 IU/mL (<15.0)
[2023-05-09 11:44] LABS: HBS Num1 0.11 mIU/mL (0-7.99); HBsAGNum1 0.29 S/CO (0.00-0.99); Hepatitis B Core Antibody Nonreactive (Nonreactive); Hepatitis B Surface Antigen Negative (Negative); ~HepC Num1 0.19 S/CO (0.00-0.79); ~Hepatitis A Antibody IgM Nonreactive (Nonreactive); ~Hepatitis B Surface Antibody NONREACTIVE (Nonreactive); ~Hepatitis C Antibody Nonreactive (Nonreactive)
[2023-05-10 21:58] LABS: Prot Elec - Alpha1 0.3 g/dL (0.2-0.3); Prot Elec - Alpha2 0.6 g/dL (0.5-0.9); Prot Elec - Beta 1 0.6 g/dL (0.4-0.6); Prot Elec - Beta 2 0.6 g/dL (0.2-0.5); Prot Elec - Gamma 1.9 g/dL (0.8-1.7)
[2023-05-10 22:23] LABS: Anti DNA DS Antibody 1 IU/mL; Antibody to SS-A Antigen <1.0 NEG AI (<1.0 NEG); Antibody to SS-B Antigen <1.0 NEG AI (<1.0 NEG); SM/Ribonucleoprotein Ab 6.8 POS AI (<1.0 NEG); Scleroderma 70 Antibody <1.0 NEG AI (<1.0 NEG); Smith Protein 7.2 POS AI (<1.0 NEG)
[2023-05-10 22:29] LABS: Anti-Centromere B Antibodies <1.0 NEG AI (<1.0 NEG)
[2023-05-11 11:43] LABS: Complement C3 102 mg/dL (83-193)
[2023-05-11 12:58] LABS: Cyclic Citrullinated Peptide <16 UNITS
[2023-05-12 08:04] LABS: TS Negative Control Passed; TS Panel A 0; TS Panel B 0; TS Positive Control Passed; TSpotTB Negative (Negative)
[2023-05-12 14:38] LABS: IgA 467 mg/dL (47-310); IgG 1978 mg/dL (600-1640); IgM 145 mg/dL (50-300)
[2023-05-13 12:57] LABS: Vitamin D 25-OH, D2 7 ng/mL; Vitamin D 25-OH, D3 17 ng/mL; Vitamin D 25-OH, Total 24 ng/mL (30-100)
[2023-05-14 13:34] LABS: Anti Nuclear Antibody Screen NEGATIVE (NEGATIVE)
== END 2023-05-09 09:07 | disposition home or self-care (01) ==
LOC: HO.LAB 09:06
PROVIDERS: PCP Internal Medicine; Visit Provider Nurse Practitioner Family
DX: M32.9 Systemic lupus erythematosus, unspecified (principal); D68.62 Lupus anticoagulant syndrome; M79.7 Fibromyalgia; M19.90 Unspecified osteoarthritis, unspecified site; Z79.899 Other long term (current) drug therapy; M79.669 Pain in unspecified lower leg; M19.049 Primary osteoarthritis, unspecified hand; M19.039 Primary osteoarthritis, unspecified wrist; M25.461 Effusion, right knee; M25.462 Effusion, left knee
CPT/HCPCS: 36415; 80053; 82306; 82550; 82784; 84165; 84550; 85025; 85652; 86038; 86140; 86160; 86200; 86225; 86235; 86334; 86431; 86481; 86704; 86706; 86709; 86803; 87340; 99212

== ENCOUNTER 2023-05-09 09:06 | Outpatient (AMB) | payer MEDICARE, SELFPAY ==
--- NOTE | 2023-05-09 09:11 | MHC.OFFVIS ---
Intake Vital Signs 05/09/23 09:14 Height 5 ft 9 in Weight 263 lb 0.183 oz BMI 38.8 BP 140/60 H Blood Pressure Location Rt brachial Position Sitting Pulse 72 Pulse Source Palpation Intake Visit Reasons: SLE/OA/CM Intake Note: Patient last seen 11/07/[address] Warner, presents today for follow up and test results. Inbound Ingredient Logistics Specialist Required: No Accompanied by: Self / Same As Patient Allergies tramadol Allergy (Severe, Verified 05/09/23 09:17) Rash trazodone Adverse Reaction (Severe, Verified 05/09/23 09:12) hives HPI HPI Comments History of Present Illness Details Ms. Mojica 58yoF returns today for follow-up of her SLE, fibromyalgia, and osteoarthritis. The patient wanted to make it very clearly document that she has not being pleased with the way she has been cared for here in the past. She says no attention was given to her concerns, chronic pain and swelling of her joints. She felt her treatment was condescending. 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 However because of her lower back pain and and her knees constantly swelling, she can not managed work anymore. She had to stop working at 54. She still gets pain in the knees and lower back. This is more painful when she is more physically active. She does try to walk about a mile a day at the college near her home. She walks on the track. She remains on hydroxychloroquine 200 mg b.i.d., gabapentin 1200 t.i.d and cyclobenzaprine at night if needed, and 5 mg oxycodone twice a day if needed. She takes the oxycodone 10 mg tablets and cuts them in half. She has not had any recent skin rashes, oral ulcers or fevers since last visit in December 2022. She denies any blood clots recently. History: The minimal proteinuria she had has improved. She did have a kidney biopsy 3 years ago that showed some mild class 2 lupus nephritis. The proteinuria now is not detectable. GFR remains stable. She does not have any skin manifestations or mucosal manifestations of SLE. There still are widespread tender spots consistent with her fibromyalgia. She gets low back pain knee pain osteoarthritis. I encouraged her to continue with the exercises she learned in PT. We will stay with current treatment. Follow-up in 6 months is recommended [facility] Medical History (Updated 05/16/23 @ 23:58 [facility] Joint inflammation of hand and wrist Smoker Pain in the shins Bilateral knee swelling Surgical History Hx laparoscopic cholecystectomy Hx of tubal ligation Hx of section Family History Brother Diabetes Mother Hypertension Breast cancer, Onset Age: 49 Father Hypertension Maternal Grandmother Breast cancer Maternal Aunt Breast cancer, Onset Age: 53 Social History Household Members: Family Housing: House Alcohol intake: never Patient Tobacco Use Status: Current someday Tobacco user Tobacco use type: Cigarette Cigarette Packs Per Day: 0.5 service: No Current occupational status: unemployed Physical Exam Vital Signs: Last Vital Signs Pulse 72 05/09/23 09:14 BP 140/60 H 05/09/23 09:14 BMI result Body Mass Index 38.8 APPEARANCE: Patient in no acute distress EYES no redness, pupils equal and reactive to light, eyelids normal NOSE/SINUS:? Airflow through both nares, no nasal discharge, no bleeding THROAT:? Oral mucosa moist, no ulcerations NECK:? No thyromegaly or masses, no adenopathy, trachea midline. HEART:? Regulrar rhythm, S1-S2 heard, no murmurs, rubs or gallops. LUNG:? Clear to percussion and auscultation ABD:? Normal bowel sounds, no organomegaly, masses or tenderness. EXTREMITIES:? No edema, no calf tenderness, normal peripheral pulses. NEURO:? Oriented and alert x3.? No focal weakness.? Reflexes symmetric.? Gait normal. SKIN:?No other inflammatory or neoplastic lesions.? Normal color and turgor JOINT EXAM:?? Cervical Spine:? Mild pain with extremes of motion.? Mild cervical muscle tenderness. Thoracic Spine:.? No scoliosis.? No tenderness on palpation. Lumbar Spine:.? Alignment normal.? Lumbar pain with flexion at 45 degrees with some mild to moderate spinal and paraspinal tenderness. Chest Wall:.? No tenderness, swelling, increased warmth or erythema. Hands:.? Normal pain-free range of motion with tenderness across all the little joints but no swelling.? No triggering, no thenar atrophy.? She has questionable sensory loss in the fingertips. Wrists:.? Mild pain with extremes of 80 degrees flexion extension with some slight tenderness but no swelling, increased warmth or erythema. Elbows:. Normal pain-free range of motion without tenderness, swelling, increased warmth or erythema. Shoulders:.?? Full range of motion with some trapezial pain with extremes of motion.? Mild anterior and posterior tenderness without adenopathy, weakness, swelling, increased warmth or erythema. Hips:.? Full range of motion without pain. Hip bursa:.? No tenderness. Knees:.?? Normal pain-free range of motion with mild medial tenderness and mild patellofemoral crepitus.? No effusions, swelling, increased warmth or erythema.? Ankles:.? Normal pain-free range of motion with mild tenderness but no swelling, increased warmth or erythema. Feet:.? Normal pain-free range of motion without tenderness, swelling, increased warmth or erythema. Tender points:?Mild tenderness to digital palpation at the occiput, trapezius, second rib, lateral epicondyle, knees, greater trochanter area bilaterally. Results Reviewed Results Reviewed: Laboratory Tests 10/29/21 11/01/22 11/01/22 09:49 10:14 10:14 WBC 7.1 Hgb 13.7 ESR 38 H Creatinine 0.96 C-Reactive Protein 0.99 H Protein/Creatinin Ratio Double Strand DNA Ab 2 Complement C3 131 Complement C4 20 11/01/22 10:17 WBC Hgb ESR Creatinine C-Reactive Protein Protein/Creatinin Ratio 0.12 Double Strand DNA Ab Complement C3 Complement C4 [address] [address] XRay Report Signed Patient: Galina Doyle MR#: [id number] : 1965 Acct:[id number] Age/Sex: 57 / F ADM Date: 11/01/[address]: Home Warner MD Ordering Physician: Home Warner MD Date of Service: 09/26/23 Procedure(s): XR lumbar spine 2-3V Accession Number(s): [id number] cc: Darrel Tony MD; Home Warner MD~ EXAMINATION: XR LUMBOSACRAL SPINE CLINICAL INFORMATION: Reason for Exam M47.816 - Spondylosis without myelopathy or radiculopathy, lumbar region COMPARISON: None TECHNIQUE: 3 views of the lumbar spine FINDINGS: 5 nonrib-bearing lumbar-type vertebral bodies. Vertebral body heights are maintained. Alignment is maintained. Mild degenerative disc disease at L5-S1 with loss of disc space height, degenerative endplate spurring and facet arthropathy. Right upper quadrant cholecystectomy clips. XR/XR lumbar spine 2-3V IMPRESSION: Mild degenerative disc disease at L5-S1 with loss of disc space height, degenerative endplate spurring and facet arthropathy. Dictated By: Giselle Maurice MD Assessment & Plan Assessment & Plan (1) Long-term use of hydroxychloroquine: Code(s): Z79.899 - Other animal care attendant (current) drug therapy (2) Pain in the shins: Code(s): M79.669 - Pain in unspecified lower leg Qualifiers: Laterality: unspecified laterality Qualified Code(s): M79.669 - Pain in unspecified lower leg (3) Joint inflammation of hand and wrist: Code(s): M19.049 - Primary osteoarthritis, unspecified hand; M19.039 - Primary osteoarthritis, unspecified wrist (4) Lupus: Comment: DISCOID LESIONS, SUB-ACUTE SKIN LESIONS ARTHRALGIAS, MILD PROTEINURIA - resolved; kidney bx 10/2019 - class II nephritis(sees Dr. Herrera) + Anti-DNA, Anti-SUPER[employer]OR [employer]VAGE, Anti-Sm, SS-A On hydroxychloroquine - eye exam OK 01/14; 07/17, 05/19, 06/21, 09/24, 12/26. 06/27, 06/28 Code(s): M32.9 - Systemic lupus erythematosus, unspecified (5) Bilateral knee swelling: Code(s): M25.461 - Effusion, right knee; M25.462 - Effusion, left knee Plan #SLE: Historically she has a lupus presentation of discoid rash. Patient has not had that since last visit. She continues on hydroxychloroquine 200 mg b.i.d.. I will obtain updated labs to assess lupus markers. #Luo pain: The patient is a former smoker and is complaining of luo pain. This is concerned for hypertrophic osteoarthritis in the context of lung malignancy. I will obtain x-ray of her luo and a chest x-ray to evaluate further. #Joint inflammation of hands and wrists/Knee pain: I will obtain x-rays and additional labs to evaluate for inflammation. I prescribed a course of prednisone to help patient with overall pain level and swelling that was observed on PE. Patient knows to monitor blood sugar levels on prednisone. I spend 50 minutes reviewing history, evaluating patient, and documenting. Follow-up in 1 month Orders: Orders Comprehensive Met. Panel 05/09/23 Z79.899 - Other animal care attendant (current) drug therapy, D68.62 - Lupus anticoagulant syndrome, M32.9 - Systemic lupus erythematosus, unspecified Complete Blood Count Auto Diff 05/09/23 Z79.899 - Other animal care attendant (current) drug therapy, D68.62 - Lupus anticoagulant syndrome, M32.9 - Systemic lupus erythematosus, unspecified C Reactive Protein 05/09/23 Z79.899 - Other animal care attendant (current) drug therapy, D68.62 - Lupus anticoagulant syndrome, M32.9 - Systemic lupus erythematosus, unspecified Creatine Kinase Total 05/09/23 Z79.899 - Other halfway (current) drug therapy, D68.62 - Lupus anticoagulant syndrome, M32.9 - Systemic lupus erythematosus, unspecified Erythrocyte Sedimentation Rate 05/09/23 Z79.899 - Other halfway (current) drug therapy, D68.62 - Lupus anticoagulant syndrome, M32.9 - Systemic lupus erythematosus, unspecified Immunofixation Pnl, Serum 05/09/23 Z79.899 - Other halfway (current) drug therapy, D68.62 - Lupus anticoagulant syndrome, M32.9 - Systemic lupus erythematosus, unspecified Immunoglobulins,IgG IgA IgM 05/09/23 Z79.899 - Other halfway (current) drug therapy, D68.62 - Lupus anticoagulant syndrome, M32.9 - Systemic lupus erythematosus, unspecified MOI Reflex Titer and Pattern 05/09/23 Z79.899 - Other animal care attendant (current) drug therapy, D68.62 - Lupus anticoagulant syndrome, M32.9 - Systemic lupus erythematosus, unspecified Protein Electrophoresis, Serum 05/09/23 Z79.899 - Other animal care attendant (current) drug therapy, D68.62 - Lupus anticoagulant syndrome, M32.9 - Systemic lupus erythematosus, unspecified Anti DNA DS Antibody 05/09/23 Z79.899 - Other animal care attendant (current) drug therapy, D68.62 - Lupus anticoagulant syndrome, M32.9 - Systemic lupus erythematosus, unspecified Uric Acid 05/09/23 Z79.899 - Other animal care attendant (current) drug therapy, D68.62 - Lupus anticoagulant syndrome, M32.9 - Systemic lupus erythematosus, unspecified Complement C3 05/09/23 Z79.899 - Other animal care attendant (current) drug therapy, D68.62 - Lupus anticoagulant syndrome, M32.9 - Systemic lupus erythematosus, unspecified Vitamin D 25-OH (D2 and D3) 05/09/23 Z79.899 - Other halfway (current) drug therapy, D68.62 - Lupus anticoagulant syndrome, M32.9 - Systemic lupus erythematosus, unspecified Hepatitis A,B,C Profile 05/09/23 Z79.899 - Other animal care attendant (current) drug therapy, D68.62 - Lupus anticoagulant syndrome, M32.9 - Systemic lupus erythematosus, unspecified Anti-Centromere B Antibodies 05/09/23 Z79.899 - Other halfway (current) drug therapy, D68.62 - Lupus anticoagulant syndrome, M32.9 - Systemic lupus erythematosus, unspecified Cyclic Citrullinated Peptide 05/09/23 M25.461 - Effusion, right knee, M25.462 - Effusion, left knee XR knee RT 3V 05/09/23 M79.669 - Pain in unspecified lower leg, M25.461 - Effusion, right knee, M25.462 - Effusion, left knee, M32.9 - Systemic lupus erythematosus, unspecified, F17.200 - Nicotine dependence, unspecified, uncomplicated, M19.049 - Primary osteoarthritis, unspecified hand, M19.039 - Primary osteoarthritis, unspecified wrist XR hand LT min 3V 05/09/23 M19.049 - Primary osteoarthritis, unspecified hand, M19.039 - Primary osteoarthritis, unspecified wrist Sjogren's Antibodies 05/09/23 Z79.899 - Other animal care attendant (current) drug therapy, D68.62 - Lupus anticoagulant syndrome, M32.9 - Systemic lupus erythematosus, unspecified Scleroderma 70 Antibody 05/09/23 Z79.899 - Other halfway (current) drug therapy, D68.62 - Lupus anticoagulant syndrome, M32.9 - Systemic lupus erythematosus, unspecified Complement C4 05/09/23 Z79.899 - Other halfway (current) drug therapy, D68.62 - Lupus anticoagulant syndrome, M32.9 - Systemic lupus erythematosus, unspecified T Spot TB 05/09/23 Z79.899 - Other halfway (current) drug therapy, D68.62 - Lupus anticoagulant syndrome, M32.9 - Systemic lupus erythematosus, unspecified Anti Extractable Nuclear Ag 05/09/23 Z79.899 - Other halfway (current) drug therapy, D68.62 - Lupus anticoagulant syndrome, M32.9 - Systemic lupus erythematosus, unspecified Rheumatoid Factor 05/09/23 M25.461 - Effusion, right knee, M25.462 - Effusion, left knee XR chest 2V 05/09/23 M79.669 - Pain in unspecified lower leg, F17.200 - Nicotine dependence, unspecified, uncomplicated, M32.9 - Systemic lupus erythematosus, unspecified XR knee LT 3V 05/09/23 M79.669 - Pain in unspecified lower leg, M25.461 - Effusion, right knee, M25.462 - Effusion, left knee, M32.9 - Systemic lupus erythematosus, unspecified, M19.049 - Primary osteoarthritis, unspecified hand, M19.039 - Primary osteoarthritis, unspecified wrist XR hand RT min 3V 05/09/23 M19.049 - Primary osteoarthritis, unspecified hand, M19.039 - Primary osteoarthritis, unspecified wrist Medications: New prednisone orally daily; 4 tablets per day x 7 days; 3 tablets per day x 7 days, 2 tablets per day x 7 days 1 tablet per day. 90 tabs 0RF M19.049 - Primary osteoarthritis, unspecified hand, M19.039 - Primary osteoarthritis, unspecified wrist, M79.669 - Pain in unspecified lower leg, M32.9 - Systemic lupus erythematosus, unspecified Coding Level of Care Code Est Pt Level 5 (49020) Diagnoses Long-term use of hydroxychloroquine Z79.899 Pain in luo, unspecified laterality M79.669 Laterality: unspecified laterality Joint inflammation of hand and wrist M19.049; M19.039 Lupus M32.9 Bilateral knee swelling M25.461; M25.462
[2023-05-09 09:14] VITALS: BP 140/60; PULSE 72; BMI 38.8
== END 2023-05-09 10:10 | disposition home or self-care (01) ==
PROVIDERS: PCP Internal Medicine; Visit Provider Nurse Practitioner Family
DX: M32.9 Systemic lupus erythematosus, unspecified (principal); Z79.899 Other long term (current) drug therapy; M79.669 Pain in unspecified lower leg; M19.049 Primary osteoarthritis, unspecified hand; M19.039 Primary osteoarthritis, unspecified wrist; M25.461 Effusion, right knee; M25.462 Effusion, left knee
CPT/HCPCS: 99215

== ENCOUNTER 2023-06-27 12:39 | Outpatient (REF) | payer MEDICARE, SELFPAY ==
--- NOTE | ~2023-06-27 | XR_ITS ---
EXAMINATION: XR CHEST XR BILATERAL KNEES XR BILATERAL HANDS CLINICAL INFORMATION: Knee pain, severe dial pain. History of lupus, smoker. Please assess shins for hypertrophic osteoarthritis. Primary osteoarthritis. TECHNIQUE: 3 views of each knee. 3 views of each hand. 2 views of the chest. COMPARISON: None available. FINDINGS: RIGHT KNEE: Trace joint effusion. Moderate narrowing of the medial compartment. Small tricompartmental osteophytes. Periosteal reaction noted along the posterior aspect of the imaged proximal shaft of the right tibia. LEFT KNEE: Trace joint effusion. Moderate narrowing of the medial compartment. Small tricompartmental osteophytes. Mild, subtle areas of periostitis along the imaged shaft of the proximal left tibia. CHEST: Lung volumes are low. Heart size is normal. There is no gross pneumothorax. Mild degenerative changes in the thoracic spine. Right costophrenic angle blunting may be related to low lung volumes and/or pleural thickening/trace pleural effusion. No gross parenchymal consolidation appreciated to suggest pneumonia, although visualization limited due to low lung volumes. RIGHT HAND: Moderate degenerative changes in the first carpometacarpal joint with joint space narrowing and hypertrophic change. Ulnar minus variance. Cystic lucencies in the scaphoid. Advanced degenerative changes with hypertrophic change in scattered IP joints most notable in the first IP, third PIP and fourth DIP joints. Mild periosteal reaction along the volar, proximal shafts of the second and third digits. LEFT HAND: Moderate degenerative changes in the first carpometacarpal joint with joint space narrowing and hypertrophic change. Ulnar minus variance. Minimal degenerative changes with hypertrophic change in scattered IP joints. Mild periosteal reaction along the volar, proximal shafts of the third, fourth and fifth digits. XR/XR hand LT min 3V IMPRESSION: 1. Moderate degenerative changes bilateral knees. 2. Right costophrenic angle blunting may be related to low lung volumes and/or pleural thickening/trace pleural effusion. CT scan of the chest should be considered for this patient with history of lupus and every day smoker. 3. Moderate degenerative changes bilateral first carpometacarpal joints. 4. Advanced degenerative changes in scattered IP joints of the right hand. 5. Mild periosteal reaction along the volar, proximal shafts of the second and third digits of the right hand and third, fourth and fifth digits of the left hand. 6. Periosteal reaction noted along the posterior aspect of the imaged proximal shaft of the right tibia. Mild, subtle areas of periostitis along the imaged shaft of the partially imaged proximal left tibia. Dedicated views of the lower legs recommended.
[2023-06-27 14:06] LABS: Appearance Urine Cloudy; Color Urine Dark Yellow; Glucose Urine UA 500 mg/dL (Negative); Leukocyte Esterase Urine Negative (Negative); Nitrite Urine Negative (Negative); PH 5.5 (5.0-9.0); Specific Gravity - Urine 1.025 (1.005-1.025); UMIC TRIGGER UA YES; Urine Blood Negative (Negative); Urine Ketones Trace mg/dL (Negative); Urine Protein 30 (1+) mg/dL (Neg-Trace)
[2023-06-27 14:14] LABS: Bacteria Urine 1+ (None Seen); Hyaline Casts Urine 0-2 /LPF (0-2); Other Crystals Urine Present; RBC Urine 0-2 /HPF (0-2); WBC Urine 0-5 /HPF (0-5)
[2023-06-27 14:56] LABS: Creatinine Urine 197.35 mg/dL; Protein/Creatinine Ratio, Ur 0.19 (<0.2); Total Protein Urine Random 37 mg/dL (<12)
== END 2023-06-27 12:40 | disposition home or self-care (01) ==
LOC: HO.XRAY 12:39
PROVIDERS: PCP Internal Medicine; Visit Provider Nurse Practitioner Family
DX: M79.669 Pain in unspecified lower leg (principal); M25.461 Effusion, right knee; M25.562 Pain in left knee; M32.9 Systemic lupus erythematosus, unspecified; M19.049 Primary osteoarthritis, unspecified hand; M19.039 Primary osteoarthritis, unspecified wrist; F17.200 Nicotine dependence, unspecified, uncomplicated
CPT/HCPCS: 71046; 73130; 73562; 81001; 82570; 84156

== ENCOUNTER 2023-07-12 09:53 | Outpatient (AMB) | payer MEDICARE, SELFPAY ==
[2023-07-12 10:09] VITALS: BP 140/72; BMI 38.4
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
== END 2023-07-12 10:39 | disposition home or self-care (01) ==
PROVIDERS: PCP Internal Medicine; Visit Provider Nurse Practitioner Family
DX: Z79.899 Other long term (current) drug therapy (principal); M19.049 Primary osteoarthritis, unspecified hand; M19.039 Primary osteoarthritis, unspecified wrist; M32.9 Systemic lupus erythematosus, unspecified; M25.461 Effusion, right knee; M25.462 Effusion, left knee; M06.00 Rheumatoid arthritis without rheumatoid factor, unspecified site; M35.1 Other overlap syndromes
CPT/HCPCS: 99214; G2211

== ENCOUNTER → 2023-07-12 09:53 | Outpatient (BNVA) | payer MEDICARE, SELFPAY | PROVIDERS: PCP Internal Medicine; Visit Provider Nurse Practitioner Family | DX: M32.9 Systemic lupus erythematosus, unspecified (principal); M79.7 Fibromyalgia; M06.00 Rheumatoid arthritis without rheumatoid factor, unspecified site; M35.1 Other overlap syndromes; M19.042 Primary osteoarthritis, left hand; M19.041 Primary osteoarthritis, right hand; M25.462 Effusion, left knee; M25.461 Effusion, right knee; R70.0 Elevated erythrocyte sedimentation rate; Z79.60 Long term (current) use of unspecified immunomodulators and immunosuppressants; Z79.899 Other long term (current) drug therapy | CPT/HCPCS: 99212 ==

== ENCOUNTER 2023-09-04 13:07 | Outpatient (REF) | payer MEDICARE, SELFPAY ==
[2023-09-04 13:23] LABS: MANUAL DIFF FLAG NO
[2023-09-04 14:03] LABS: Basophils Percent Auto 0.5 % (0-2); Eosinophils Absolute Auto 0.1 X10*3/uL (0.0-0.4); Eosinophils Percent Auto 2.2 % (0-4); Hematocrit 40.4 % (37.0-47.0); Imm Gran Abs Auto 0.01 X10*3/uL (0.00-0.03); Imm Gran Pct Auto 0.2 % (0.0-0.4); Lymphocytes Absolute Auto 2.3 X10*3/uL (1.2-4.9); Lymphocytes Percent Auto 41.1 % (20-40); Mean Corpuscular HGB Conc 32.2 g/dl (31.0-35.0); Mean Corpuscular Hemoglobin 29.1 pg (27.0-33.0); Mean Corpuscular Volume 90.4 fL (80.0-98.0); Mean Platelet Volume 11.3 fL (9.4-12.3); Monocytes Absolute Auto 0.3 X10*3/uL (0.1-1.2); Monocytes Percent Auto 6.2 % (2-11); Neutrophils Absolute Auto 2.8 x10*3/uL (2.0-8.3); Neutrophils Percent Auto 49.8 % (45-73); Platelet Count 211 X10*3/uL (160-400); Red Blood Count 4.47 X10*6/uL (4.20-5.50); Red Cell Distribution Width 13.8 % (11.0-16.0); White Blood Count 5.5 X10*3/uL (4.8-10.8)
[2023-09-04 14:46] LABS: Alanine Aminotransferase 15 U/L (0-31); Albumin Level 3.6 g/dL (3.5-5.0); Alkaline Phosphatase 77 U/L (39-117); Anion Gap 11 (12-20); Aspartate Amino Transferase 14 U/L (5-31); Bilirubin Total 0.5 mg/dL (0.0-1.0); Blood Urea Nitrogen 9 mg/dL (9-16); C Reactive Protein 1.18 mg/dL (< or = 0.50); Calcium 9.3 mg/dL (8.4-10.2); Carbon Dioxide 27 mmol/L (22-29); Chloride 109 mmol/L (96-108); Estimated Glomerular Filt Rate > 60; Glucose Random 130 mg/dL (60-115); Potassium 4.3 mmol/L (3.3-5.1); Sodium 143 mmol/L (135-145); Total Protein 7.6 g/dL (6.5-8.0)
[2023-09-04 14:48] LABS: Erythrocyte Sedimentation Rate 36 MM/HR (0-20)
== END 2023-09-04 13:08 | disposition home or self-care (01) ==
LOC: HO.LAB 13:07
PROVIDERS: PCP Internal Medicine; Visit Provider Nurse Practitioner Family
DX: Z79.899 Other long term (current) drug therapy (principal); M06.00 Rheumatoid arthritis without rheumatoid factor, unspecified site; M35.1 Other overlap syndromes; Z79.60 Long term (current) use of unspecified immunomodulators and immunosuppressants
CPT/HCPCS: 36415; 80053; 85025; 85652; 86140

== ENCOUNTER 2023-09-18 13:08 | Outpatient (AMB) | payer MEDICARE, SELFPAY ==
--- NOTE | 2023-09-18 13:16 | A.OFFVIS_ITS ---
Vital Signs 09/18/23 13:20 Height 5 ft 9 in Weight 255 lb 4.725 oz BMI 37.7 BP 134/80 Blood Pressure Location Rt brachial Position Sitting Pulse 85 Pulse Source Pulse Oximeter Pulse Oximetry (%) 99 Oxygen Delivery Method Room Air Intake Visit Reasons: Lupus Intake Note: Patient presents for Lupus. Allergies tramadol Allergy (Severe, Verified 09/18/23 13:19) Rash trazodone Adverse Reaction (Severe, Verified 09/18/23 13:19) hives Medication List - Last Reconciled 09/18/23 by Christine Gill MD amlodipine 5 mg PO DAILY bupropion HCl XL 150 mg PO DAILY cholecalciferol (vitamin D3) 50 mcg PO DAILY clonidine HCl 0.2 mg PO BID PRN cyclobenzaprine 10 mg PO BEDTIME PRN gabapentin 1,200 mg (2 x 600 mg) PO TID NS hydrochlorothiazide 50 mg PO DAILY hydroxychloroquine 200 mg PO BID insulin aspart U-100 subcut insulin glargine (Lantus Solostar U-100 Insulin) 10 units subcut QPM metformin 1,000 mg PO BID mirtazapine 30 mg PO BEDTIME olmesartan 40 mg PO DAILY oxycodone mg PO prazosin 1 mg PO BEDTIME quetiapine 50 mg PO BEDTIME triamcinolone acetonide 0.1% 1 appl topical BID upadacitinib ER (Rinvoq) 15 mg PO DAILY zolpidem 10 mg PO BEDTIME PRN HPI Comments Details: This is a 58-year-old female with SLE who presents for follow-up. She states that she continues to have flare-ups of lupus rashes on her upper back, upper chest, upper arms, she applies triamcinolone cream most days. It does help. Her main complaint is lower back pain that radiates bilaterally to both lower extremities. She has bilateral knee pain, much worse on the right where she had a PCL tear 03/2023. She took Rinvoq daily as prescribed for 28 days without much improvement [facility] Medical History Long-term use of immunosuppressant medication Smoker Pain in the shins Bilateral knee swelling Surgical History Hx laparoscopic cholecystectomy Hx of tubal ligation Hx of section Family History Brother Diabetes Mother Hypertension Breast cancer, Onset Age: 49 Father Hypertension Maternal Grandmother Breast cancer Maternal Aunt Breast cancer, Onset Age: 53 Social History Household Members: Family Housing: House Alcohol intake: never Patient Tobacco Use Status: Current someday Tobacco user Tobacco use type: Cigarette Cigarette Packs Per Day: 0.5 service: No Current occupational status: unemployed Review of Systems Musc Reports back pain, Reports arthralgias, Reports joint swelling, Reports limited range of motion, Reports radiating pain into limb and Reports stiffness Skin/Breast Reports alopecia and Reports lesions Physical Exam Vital Signs: Last Vital Signs Pulse 85 09/18/23 13:20 BP 134/80 09/18/23 13:20 Pulse Ox 99 09/18/23 13:20 Oxygen Delivery Method Room Air 09/18/23 13:20 BMI result Body Mass Index 37.7 Const General: cooperative, healthy appearing and comfortable Nutritional Appearance: obese morbidly obese Orientation/consciousness: patient oriented x3 Limitations: no limitations HEENT Head: Yes normocephalic and Yes atraumatic Mouth: moist mucous membranes Resp Effort & Inspection: normal respiratory effort and able to speak in complete sentences Auscultation: clear to auscultation bilaterally Cardio Rate: regular rate Rhythm: regular rhythm Skin Other: Significant scarring alopecia of her scalp. Old lesions She has subacute discoid lesions on her upper back upper arms and upper chest Neuro General: patient oriented x3 Extrem Other: No active synovitis both hands and wrists Right knee swelling and significantly limited range of motion Bilateral lower lumbar paraspinal muscle tenderness Bilateral positive straight leg raise test Assessment & Plan Assessment & Plan (1) Lupus: Comment: DISCOID LESIONS, SUB-ACUTE SKIN LESIONS 2009 ARTHRALGIAS, MILD PROTEINURIA - resolved; kidney bx 10/2019 - class II nephritis(sees Dr. Herrera) ++ Anti-DNA,++ Anti-LITIGATOR++Anti-Sm++ SS-A On hydroxychloroquine Code(s): M32.9 - Systemic lupus erythematosus, unspecified Category: Medical Plan: This is a 58-year-old female who presents for follow-up. This is her 1st visit with me. She used to follow-up with Dr. Warner and Rosa Reis after him. Upon evaluation I do not see any signs suggestive of active SLE except for the rashes on upper back, upper chest and upper arms. Advised patient to avoid the sun as much as possible, use long hats, long sleeves, use sunscreen. Advised patient to tender windows. I signed the RMV form Continue hydroxychloroquine 20 mg Twice daily Labs before next visit in 3 months. 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 Advised patient to take it disc of her MRI (4) Bilateral lumbar radiculopathy: Code(s): M54.16 - Radiculopathy, lumbar region Category: Medical Plan: Referred to pain management (5) Long-term use of hydroxychloroquine: Comment: eye exam OK 01/14; 07/17, 05/19, 06/21, 09/24, 12/26. 06/27, 06/28 Code(s): Z79.899 - Other local intermodal truck driver (current) drug therapy Category: Medical Plan: Continue to follow-up regularly with Ophthalmology Plan This is my 1st visit with patient, I spent 46 minutes reviewing patient's chart, looking at outside chart, evaluating patient, ordering diagnostic workup, counseling patient and documenting in the chart Orders: Orders Complete Blood Count Auto Diff 3 Months D68.62 - Lupus anticoagulant syndrome, M32.9 - Systemic lupus erythematosus, unspecified, Z79.60 - penitentiary (current) use of unspecified immunomodulators and immunosuppressants C Reactive Protein 3 Months D68.62 - Lupus anticoagulant syndrome, M32.9 - Systemic lupus erythematosus, unspecified Erythrocyte Sedimentation Rate 3 Months D68.62 - Lupus anticoagulant syndrome, M32.9 - Systemic lupus erythematosus, unspecified Complement C4 3 Months D68.62 - Lupus anticoagulant syndrome, M32.9 - Systemic lupus erythematosus, unspecified Protein Creatinine Ratio, Ur 3 Months D68.62 - Lupus anticoagulant syndrome, M32.9 - Systemic lupus erythematosus, unspecified Beta-2 Glycoprotein Antibody 3 Months D68.62 - Lupus anticoagulant syndrome Cardiolipin Antibodies 3 Months D68.62 - Lupus anticoagulant syndrome Lupus Anticoagulant Panel 3 Months D68.62 - Lupus anticoagulant syndrome Comprehensive Met. Panel 3 Months D68.62 - Lupus anticoagulant syndrome, M32.9 - Systemic lupus erythematosus, unspecified Anti DNA DS Antibody 3 Months D68.62 - Lupus anticoagulant syndrome, M32.9 - Systemic lupus erythematosus, unspecified Complement C3 3 Months D68.62 - Lupus anticoagulant syndrome, M32.9 - Systemic lupus erythematosus, unspecified UA w Microscopic 3 Months D68.62 - Lupus anticoagulant syndrome, M32.9 - Systemic lupus erythematosus, unspecified Referrals Orthopedics Referral S83.521A - Sprain of posterior cruciate ligament of right knee, initial encounter Pain Management Referral M54.16 - Radiculopathy, lumbar region Coding Level of Care Code Est Pt Level 5 (02560) Complex EM visit Add On G2211 Diagnoses Lupus M32.9 Lupus anticoagulant disorder D68.62 Chronic rupture of posterior cruciate ligament of right knee S83.521A Bilateral lumbar radiculopathy M54.16 Long-term use of hydroxychloroquine Z79.899
[2023-09-18 13:20] VITALS: BP 134/80; PULSE 85; O2SAT 99; BMI 37.7
== END 2023-09-18 13:51 | disposition home or self-care (01) ==
PROVIDERS: PCP Internal Medicine; Visit Provider Student in an Organized Health Care Education/Training Program
DX: M32.9 Systemic lupus erythematosus, unspecified (principal); D68.62 Lupus anticoagulant syndrome; S83.521A Sprain of posterior cruciate ligament of right knee, initial encounter; M54.16 Radiculopathy, lumbar region; Z79.899 Other long term (current) drug therapy
CPT/HCPCS: 99215; G2211

== ENCOUNTER → 2023-09-18 13:08 | Outpatient (BNVA) | payer MEDICARE, SELFPAY | PROVIDERS: PCP Internal Medicine; Visit Provider Student in an Organized Health Care Education/Training Program | DX: M32.9 Systemic lupus erythematosus, unspecified (principal); M54.16 Radiculopathy, lumbar region; D68.62 Lupus anticoagulant syndrome; S83.521D Sprain of posterior cruciate ligament of right knee, subsequent encounter; Z79.899 Other long term (current) drug therapy | CPT/HCPCS: 99212 ==

== ENCOUNTER 2023-10-06 09:33 | Outpatient (REF) | payer MEDICARE, SELFPAY ==
--- NOTE | ~2023-10-06 | XR_ITS ---
EXAMINATION: XR KNEE, RIGHT CLINICAL INFORMATION: Knee pain COMPARISON: Radiographs 06/27/2023 TECHNIQUE: Single sunrise view of the right knee. FINDINGS: Moderate patellofemoral compartment osteoarthritis with prominent marginal osteophytes XR/XR knee RT 1V IMPRESSION: Moderate patellofemoral compartment osteoarthritis. Electronically signed by: Shan Trujillo MD 10/12/2023 01:18 PM EDT
== END 2023-10-06 09:34 | disposition home or self-care (01) ==
LOC: HO.XRAY 09:33
PROVIDERS: PCP Internal Medicine; Visit Provider Physician Assistant
DX: M25.561 Pain in right knee (principal)
CPT/HCPCS: 73560; 99202

== ENCOUNTER 2023-10-06 09:50 | Outpatient (AMB) | payer MEDICARE, SELFPAY ==
[2023-10-06 09:55] VITALS: BMI 37.7
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
== END 2023-10-06 10:30 | disposition home or self-care (01) ==
PROVIDERS: PCP Internal Medicine; Visit Provider Orthopaedic Surgery
DX: M17.11 Unilateral primary osteoarthritis, right knee (principal); D68.62 Lupus anticoagulant syndrome; E11.9 Type 2 diabetes mellitus without complications
CPT/HCPCS: 99204

== ENCOUNTER 2023-10-18 10:56 | Outpatient (AMB) | payer MEDICARE, SELFPAY ==
[2023-10-18 10:59] VITALS: BP 138/80; PULSE 95; O2SAT 100; BMI 37.4
--- NOTE | 2023-10-18 10:59 | MHC.OFFVIS ---
Vital Signs 10/18/23 10:59 Height 5 ft 9 in Weight 253 lb BMI 37.4 BP 138/80 Blood Pressure Location Lt brachial Position Sitting Pulse 95 Pulse Source Pulse Oximeter Pulse Oximetry (%) 100 Oxygen Delivery Method Room Air Intake Visit Reasons: Radiculopathy, lumbar region Allergies tramadol Allergy (Severe, Verified 10/18/23 11:00) Rash trazodone Adverse Reaction (Severe, Verified 10/18/23 11:00) hives Medication List - Last Reconciled 10/18/23 by Yamileth Mattson amlodipine 5 mg PO DAILY bupropion HCl XL 150 mg PO DAILY cholecalciferol (vitamin D3) 50 mcg PO DAILY clonidine HCl 0.2 mg PO BID PRN cyclobenzaprine 10 mg PO BEDTIME PRN diclofenac sodium 1% 4 grams topical QID gabapentin 1,200 mg (2 x 600 mg) PO TID NS hydrochlorothiazide 50 mg PO DAILY hydroxychloroquine 200 mg PO BID insulin aspart U-100 subcut insulin glargine (Lantus Solostar U-100 Insulin) 10 units subcut QPM metformin 1,000 mg PO BID mirtazapine 30 mg PO BEDTIME oxycodone 5 mg PO BID quetiapine 50 mg PO BEDTIME triamcinolone acetonide 0.1% 1 appl topical BID HPI Comments Details: Galina is a very pleasant 58-year-old female who presents to the office today for evaluation and management of her chronic lower back pain She endorses midline lower back pain with radiation down both lower extremities that started approximately 8 months ago. Does have a longstanding history of lower back pain but states it has been significantly worse over the last few months. Endorses midline lower back pain with radiation down the back of both legs. Pain today is rated a 7/10, constant and worse at night. Pain is exacerbated by twisting, lumbar extension, walking, standing, sitting and stairs She is currently taking gabapentin for pain with some improvement. Unable to take nonsteroidal anti-inflammatory medications secondary to gastric ulcers. She has tried Tylenol in the past but it gives her headaches, did not improve her back pain. Patient has tried topical patches, topical creams, anti-inflammatory creams all without improvement of her symptoms Denies recent imaging. She has not tried physical therapy, acupuncture, massage or previous attempts at injections. In terms of muscle damage condition is described as aching, hot, burning, stabbing, sharp Pain is negatively impacting patient's enjoyment of life, general activity, recreational activities, sleep and walking. Endorses current use of nicotine/tobacco Denies current use of alcohol or illicit substances Denies implantable devices, pacemaker or defibrillator [facility] Medical History Long-term use of immunosuppressant medication Smoker Pain in the shins Bilateral knee swelling Surgical History Hx laparoscopic cholecystectomy Hx of tubal ligation Hx of section Family History Brother Diabetes Mother Hypertension Breast cancer, Onset Age: 49 Father Hypertension Maternal Grandmother Breast cancer Maternal Aunt Breast cancer, Onset Age: 53 Social History Household Members: Family Housing: House Alcohol intake: never Patient Tobacco Use Status: Current someday Tobacco user Tobacco use type: Cigarette Cigarette Packs Per Day: 0.5 service: No Current occupational status: unemployed Review of Systems Const All systems reviewed & are unremarkable except as noted in HPI and below Physical Exam Vital Signs: Last Vital Signs Pulse 95 10/18/23 10:59 BP 138/80 10/18/23 10:59 Pulse Ox 100 10/18/23 10:59 Oxygen Delivery Method Room Air 10/18/23 10:59 BMI result Body Mass Index 37.4 General: awake, alert, oriented. Answers questions appropriately. Fully engaged in examination. Skin: warm, dry, intact HEENT: Normocephalic. Hearing intact. Cardiac: External chest normal in appearance. Respiratory: No cough, audible wheezing or stridor. Abdomen: without gross distension. MS: No obvious swelling or deformities. Able to stand on bilateral tiptoes and bilateral heels.? Able to transition from sit to stand unassisted. Ambulates with bilaterally normal heel strike and toe off SLR negative bilaterally Facet loading positive Tenderness to palpation midline lumbar vertebrae and lumbar paraspinal muscles Decreased range of motion, forward flexion to 60 degrees, unable to extend secondary to pain increase Not tender over bilateral PSIS Valsalva negative Neurological: Oriented to person, place, time and situation. Thought process intact. Ambulates with a antalgic gait Psychiatric: Appropriate mood and affect. Good judgment and insight. Results Reviewed Results Reviewed: 11/01/2022 XR/XR lumbar spine 2-3V FINDINGS: 5 nonrib-bearing lumbar-type vertebral bodies. Vertebral body heights are maintained. Alignment is maintained. Mild degenerative disc disease at L5-S1 with loss of disc space height, degenerative endplate spurring and facet arthropathy. Right upper quadrant cholecystectomy clips. IMPRESSION: Mild degenerative disc disease at L5-S1 with loss of disc space height, degenerative endplate spurring and facet arthropathy. Assessment & Plan Assessment & Plan (1) Osteoarthritis of lumbar spine: Code(s): M47.816 - Spondylosis without myelopathy or radiculopathy, lumbar region Category: Medical (2) Lumbar spondylosis: Code(s): M47.816 - Spondylosis without myelopathy or radiculopathy, lumbar region Category: Medical (3) Myofascial low back pain: Code(s): M54.50 - Low back pain, unspecified Category: Medical Plan Galina presented to the office today for evaluation and management of her chronic lower back pain X-ray lumbar spine ordered for evaluation Order placed for PT, patient requesting [facility]. Tizanidine 2 mg p.o. t.i.d. as needed. Patient advised on cautions for use Discussed options for treatment including diagnostic interventional testing, epidural steroid injections, peripheral nerve stimulation with Sprint, RFA and more permanent neuromodulation. If no improvement with PT and muscle relaxers we will plan for bilateral diagnostic L3-L4, DR L5 medial branch blocks with local anesthetic All questions and concerns were answered, patient agrees to the plan. Follow up after PT, sooner if needed Orders: Orders XR lumbar spine 4V min Today M47.816 - Spondylosis without myelopathy or radiculopathy, lumbar region PT Evaluation and Treatment Today M54.50 - Low back pain, unspecified Medications: New tizanidine Discontinue Flexeril. No driving while taking this medication. May cause drowsiness. 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 2 mg PO TID PRN 90 tabs 1RF muscle spasticity Discontinued cyclobenzaprine Discontinued Reason: Doctor's Order 10 mg PO BEDTIME PRN 30 tabs 1RF muscle spasm M47.816 - Spondylosis without myelopathy or radiculopathy, lumbar region Coding Level of Care Code New Pt Level 4 (83775) Complex EM visit Add On G2211 Diagnoses Osteoarthritis of lumbar spine M47.816 Lumbar spondylosis M47.816 Myofascial low back pain M54.50
== END 2023-10-18 11:37 | disposition home or self-care (01) ==
PROVIDERS: PCP Internal Medicine; Visit Provider Registered Nurse Emergency
DX: M47.816 Spondylosis without myelopathy or radiculopathy, lumbar region (principal); M54.50 Low back pain, unspecified
CPT/HCPCS: 99204; G2211

== ENCOUNTER → 2023-10-18 10:56 | Outpatient (BNVA) | payer MEDICARE, SELFPAY | PROVIDERS: PCP Internal Medicine; Visit Provider Registered Nurse Emergency | DX: M47.816 Spondylosis without myelopathy or radiculopathy, lumbar region (principal) | CPT/HCPCS: 99202 ==

== ENCOUNTER 2023-11-02 10:20 | Outpatient (REF) | payer MEDICARE, SELFPAY ==
--- NOTE | ~2023-11-02 | XR_ITS ---
EXAMINATION: XR LUMBOSACRAL SPINE CLINICAL INFORMATION: M47.816 - Spondylosis without myelopathy or radiculopathy, lumbar region COMPARISON: 11/01/2022. TECHNIQUE: AP, lateral, cone-down lateral, and both oblique views of the lumbosacral spine. FINDINGS: There is normal bone mineralization. No fracture, subluxation, or suspicious bone lesion. Alignment is normal. No pars defects present on oblique views. Facets normally aligned. Normal kyphosis without scoliosis. Normal facet alignment. Discs demonstrate mild to moderate narrowing L5-S1 focally. The remainder of the intervertebral discs appears preserved. No significant facet arthropathy or hypertrophy identified. Sacrum and SI joints appear normal. No soft tissue abnormalities aside from minimal vascular calcifications and cholecystectomy clips. XR/XR lumbar spine 4V min IMPRESSION: 1. No acute findings lumbar spine. 2. Mild to moderate disc degeneration L5-S1. Electronically signed by: Aleksey Pierre MD 01/11/2024 11:19 AM [facility]
== END 2023-11-02 10:21 | disposition home or self-care (01) ==
LOC: HO.HMGCX 10:20
PROVIDERS: PCP Internal Medicine; Visit Provider Registered Nurse Emergency
DX: M47.816 Spondylosis without myelopathy or radiculopathy, lumbar region (principal)
CPT/HCPCS: 72110

== ENCOUNTER → 2023-11-02 10:24 | Outpatient (BNV) | payer MEDICARE, SELFPAY | PROVIDERS: PCP Internal Medicine; Visit Provider Radiology Diagnostic Radiology | DX: M47.816 Spondylosis without myelopathy or radiculopathy, lumbar region (principal) | CPT/HCPCS: 72110 ==

== ENCOUNTER 2023-11-24 10:30 | Outpatient (AMB) | payer MEDICARE, SELFPAY ==
[2023-11-24 10:35] VITALS: BP 138/88; PULSE 87; O2SAT 100; BMI 36.9
--- NOTE | 2023-11-24 10:35 | A.OFFVIS_ITS ---
Vital Signs 11/24/23 10:35 Height 5 ft 9 in Weight 250 lb BMI 36.9 BP 138/88 Blood Pressure Location Rt brachial Position Sitting Pulse 87 Pulse Source Pulse Oximeter Pulse Oximetry (%) 100 Oxygen Delivery Method Room Air Intake Visit Reasons: F/U After starting PT Allergies tramadol Allergy (Severe, Verified 11/24/23 10:36) Rash trazodone Adverse Reaction (Severe, Verified 11/24/23 10:36) hives Medication List - Last Reconciled 11/24/23 by Yamileth Mattson amlodipine 5 mg PO DAILY bupropion HCl XL 150 mg PO DAILY cholecalciferol (vitamin D3) 50 mcg PO DAILY clonidine HCl 0.2 mg PO BID PRN diclofenac sodium 1% 4 grams topical QID gabapentin 1,200 mg (2 x 600 mg) PO TID NS hydrochlorothiazide 50 mg PO DAILY hydroxychloroquine 200 mg PO BID insulin aspart U-100 subcut insulin glargine (Lantus Solostar U-100 Insulin) 10 units subcut QPM metformin 1,000 mg PO BID mirtazapine 30 mg PO BEDTIME oxycodone 5 mg PO BID quetiapine 50 mg PO BEDTIME tizanidine 2 mg PO TID PRN triamcinolone acetonide 0.1% 1 appl topical BID HPI Comments Details: Patient presents back to the office today for follow-up lower back pain She has been attending physical therapy without improvement. If anything she says that physical therapy is making her pain worse. Taking tizanidine with minimal improvement, would like dose increase Unable take nonsteroidal anti-inflammatory medications due to history of gastric ulcers, has been applying topical diclofenac with minimal improvement. Recent x-ray results are pending Intake: Galina is a very pleasant 58-year-old female who presents to the office today for evaluation and management of her chronic lower back pain She endorses midline lower back pain with radiation down both lower extremities that started approximately 8 months ago. Does have a longstanding history of lower back pain but states it has been significantly worse over the last few months. Endorses midline lower back pain with radiation down the back of both legs. Pain today is rated a 7/10, constant and worse at night. Pain is exacerbated by twisting, lumbar extension, walking, standing, sitting and stairs She is currently taking gabapentin for pain with some improvement. Unable to take nonsteroidal anti-inflammatory medications secondary to gastric ulcers. She has tried Tylenol in the past but it gives her headaches, did not improve her back pain. Patient has tried topical patches, topical creams, anti-inflammatory creams all without improvement of her symptoms Denies recent imaging. She has not tried physical therapy, acupuncture, massage or previous attempts at injections. In terms of muscle damage condition is described as aching, hot, burning, stabbi ng, sharp Pain is negatively impacting patient's enjoyment of life, general activity, recreational activities, sleep and walking. Endorses current use of nicotine/tobacco Denies current use of alcohol or illicit substances Denies implantable devices, pacemaker or defibrillator [facility] Medical History Long-term use of immunosuppressant medication Smoker Pain in the shins Bilateral knee swelling Surgical History Hx laparoscopic cholecystectomy Hx of tubal ligation Hx of section Family History Brother Diabetes Mother Hypertension Breast cancer, Onset Age: 49 Father Hypertension Maternal Grandmother Breast cancer Maternal Aunt Breast cancer, Onset Age: 53 Social History Household Members: Family Housing: House Alcohol intake: never Patient Tobacco Use Status: Current someday Tobacco user Tobacco use type: Cigarette Cigarette Packs Per Day: 0.5 service: No Current occupational status: unemployed Review of Systems Const All systems reviewed & are unremarkable except as noted in HPI and below Physical Exam Vital Signs: Last Vital Signs Pulse 87 11/24/23 10:35 BP 138/88 11/24/23 10:35 Pulse Ox 100 11/24/23 10:35 Oxygen Delivery Method Room Air 11/24/23 10:35 BMI result Body Mass Index 36.9 General: awake, alert, oriented. Answers questions appropriately. Fully engaged in examination. Skin: warm, dry, intact HEENT: Normocephalic. Hearing intact. Cardiac: External chest normal in appearance. Respiratory: No cough, audible wheezing or stridor. Abdomen: without gross distension. MS: No obvious swelling or deformities. Able to transition from sit to stand unassisted. Ambulates with bilaterally normal heel strike and toe off SLR negative bilaterally Facet loading positive Tenderness to palpation midline lumbar vertebrae and lumbar paraspinal muscles Not tender over bilateral PSIS Neurological: Oriented to person, place, time and situation. Thought process intact. Ambulates with a antalgic gait Psychiatric: Appropriate mood and affect. Good judgment and insight. Results Reviewed Results Reviewed: 11/01/2022 XR/XR lumbar spine 2-3V FINDINGS: 5 nonrib-bearing lumbar-type vertebral bodies. Vertebral body heights are maintained. Alignment is maintained. Mild degenerative disc disease at L5-S1 with loss of disc space height, degenerative endplate spurring and facet arthropathy. Right upper quadrant cholecystectomy clips. IMPRESSION: Mild degenerative disc disease at L5-S1 with loss of disc space height, degenerative endplate spurring and facet arthropathy. Assessment & Plan Assessment & Plan (1) Osteoarthritis of lumbar spine: Code(s): M47.816 - Spondylosis without myelopathy or radiculopathy, lumbar region Category: Medical (2) Lumbar spondylosis: Code(s): M47.816 - Spondylosis without myelopathy or radiculopathy, lumbar region Category: Medical (3) Myofascial low back pain: Code(s): M54.50 - Low back pain, unspecified Category: Medical Plan Stefanicisara presented to the office today for follow-up chronic lower back pain Will increase Tizanidine to 4 mg p.o. t.i.d. as needed. Patient advised on cautions for use Discussed options for treatment including diagnostic interventional testing, epidural steroid injections, peripheral nerve stimulation with Sprint, RFA and more permanent neuromodulation. Patient has exhausted conservative therapy including PT, topical NSAIDs, oral medications, [id number] medications and prescription medications all without improvement of her symptoms. Will schedule for for bilateral diagnostic L3-L4, DR L5 medial branch blocks with local anesthetic All questions and concerns were answered, patient agrees to the plan. Follow up after injection, sooner if needed Medications: Changed From tizanidine Discontinue Flexeril. No driving while taking this medication. May cause drowsiness. Do not take with alcohol or other MANAGER PERSONAL Depressants. 2 mg PO TID PRN 90 tabs 1RF muscle spasticity To tizanidine No driving while taking this medication. May cause drowsiness. Do not take with alcohol or other MANAGER PERSONAL Depressants. 4 mg PO TID PRN 90 tabs 1RF muscle spasticity Coding Level of Care Code Est Pt Level 3 (50343) Complex EM visit Add On G2211 Diagnoses Osteoarthritis of lumbar spine M47.816 Lumbar spondylosis M47.816 Myofascial low back pain M54.50
== END 2023-11-24 11:06 | disposition home or self-care (01) ==
PROVIDERS: PCP Internal Medicine; Visit Provider Registered Nurse Emergency
DX: M47.816 Spondylosis without myelopathy or radiculopathy, lumbar region (principal); M54.50 Low back pain, unspecified
CPT/HCPCS: 99213; G2211

== ENCOUNTER → 2023-11-24 10:30 | Outpatient (BNVA) | payer MEDICARE, SELFPAY | PROVIDERS: PCP Internal Medicine; Visit Provider Registered Nurse Emergency | DX: M47.816 Spondylosis without myelopathy or radiculopathy, lumbar region (principal); M54.50 Low back pain, unspecified | CPT/HCPCS: 99212 ==

== ENCOUNTER 2024-01-15 10:21 | Outpatient (REF) | payer MEDICARE, SELFPAY ==
[2024-01-15 10:35] LABS: MANUAL DIFF FLAG NO
[2024-01-15 11:16] LABS: Basophils Percent Auto 0.6 % (0-2); Eosinophils Absolute Auto 0.1 X10*3/uL (0.0-0.4); Eosinophils Percent Auto 2.8 % (0-4); Hematocrit 37.6 % (37.0-47.0); Hemoglobin 12.3 g/dl (12.0-16.0); Imm Gran Abs Auto 0.01 X10*3/uL (0.00-0.03); Imm Gran Pct Auto 0.2 % (0.0-0.4); Lymphocytes Absolute Auto 2.1 X10*3/uL (1.2-4.9); Lymphocytes Percent Auto 41.6 % (20-40); Mean Corpuscular HGB Conc 32.7 g/dl (31.0-35.0); Mean Corpuscular Hemoglobin 28.9 pg (27.0-33.0); Mean Corpuscular Volume 88.5 fL (80.0-98.0); Mean Platelet Volume 10.7 fL (9.4-12.3); Monocytes Absolute Auto 0.4 X10*3/uL (0.1-1.2); Monocytes Percent Auto 7.9 % (2-11); Neutrophils Absolute Auto 2.3 x10*3/uL (2.0-8.3); Neutrophils Percent Auto 46.9 % (45-73); Platelet Count 211 X10*3/uL (160-400); Red Blood Count 4.25 X10*6/uL (4.20-5.50); Red Cell Distribution Width 14.5 % (11.0-16.0); White Blood Count 4.9 X10*3/uL (4.8-10.8)
[2024-01-15 11:54] LABS: Erythrocyte Sedimentation Rate 44 MM/HR (0-20)
[2024-01-15 11:58] LABS: Appearance Urine Cloudy; Color Urine Dark Yellow; Glucose Urine UA Negative (Negative); Leukocyte Esterase Urine Small (1+) (Negative); Nitrite Urine Negative (Negative); Specific Gravity - Urine >= 1.030 (1.005-1.025); UMIC TRIGGER UA YES; Urine Blood Negative (Negative); Urine Ketones Trace mg/dL (Negative); Urine Protein Trace mg/dL (Neg-Trace)
[2024-01-15 12:04] LABS: Bacteria Urine 2+ (None Seen); Hyaline Casts Urine 0-2 /LPF (0-2); RBC Urine 0-2 /HPF (0-2); Squamous Epithelial Cell Urine >20 /HPF (0-2)
[2024-01-15 12:11] LABS: Alanine Aminotransferase 13 U/L (0-31); Albumin Level 3.6 g/dL (3.5-5.0); Alkaline Phosphatase 74 U/L (39-117); Anion Gap 9 (12-20); Aspartate Amino Transferase 17 U/L (5-31); Bilirubin Total 0.6 mg/dL (0.0-1.0); Blood Urea Nitrogen 14 mg/dL (9-16); C Reactive Protein 1.01 mg/dL (< or = 0.50); Calcium 9.1 mg/dL (8.4-10.2); Carbon Dioxide 25 mmol/L (22-29); Chloride 111 mmol/L (96-108); Estimated Glomerular Filt Rate > 60; Glucose Random 121 mg/dL (60-115); Potassium 3.5 mmol/L (3.3-5.1); Sodium 141 mmol/L (135-145); Total Protein 7.5 g/dL (6.5-8.0)
[2024-01-15 13:10] LABS: Creatinine Urine 245.18 mg/dL; Protein/Creatinine Ratio, Ur 0.08 (<0.2); Total Protein Urine Random 19 mg/dL (<12)
[2024-01-16 08:33] LABS: Complement C3 132 mg/dL (83-193)
[2024-01-16 20:24] LABS: Cardiolipin IgG Ab 89.3 GPL-U/mL
[2024-01-16 20:39] LABS: Anti DNA DS Antibody 1 IU/mL
[2024-01-17 23:09] LABS: DRVVT 1:1 Mix NOT CORRECTED (CORRECTED); DRVVT 1:1 Mix Interpretation Positive; DRVVT Confirmation Positive (Negative); Hexagonal Phase Neutralization Positive (Negative)
[2024-01-17 23:43] LABS: PTT (LAC) Screen 93 sec (<=40); Thrombin Clotting Time 20 sec (13-19)
[2024-01-19 06:37] LABS: Beta-2 Glycoprotein IgA 21.2 U/mL (<20.0); Beta-2 Glycoprotein IgG >112.0 U/mL (<20.0); Beta-2 Glycoprotein IgM 3.2 U/mL (<20.0)
== END 2024-01-15 10:22 | disposition home or self-care (01) ==
LOC: HO.LAB 10:21
PROVIDERS: PCP Student in an Organized Health Care Education/Training Program; Visit Provider Internal Medicine
DX: D68.62 Lupus anticoagulant syndrome (principal); M32.9 Systemic lupus erythematosus, unspecified; Z79.60 Long term (current) use of unspecified immunomodulators and immunosuppressants
CPT/HCPCS: 36415; 80053; 81001; 82570; 84156; 85025; 85597; 85598; 85613; 85652; 85670; 85730; 86140; 86146; 86147; 86160; 86225

== ENCOUNTER 2024-01-16 09:54 | Outpatient (AMB) | payer MEDICARE, SELFPAY ==
--- NOTE | 2024-01-16 09:55 | MHC.OFFVIS ---
Vital Signs 01/16/24 09:59 Height 5 ft 9 in Weight 252 lb 6.868 oz BMI 37.3 BP 132/80 Blood Pressure Location Lt brachial Position Sitting Pulse 87 Pulse Source Pulse Oximeter Pulse Oximetry (%) 99 Oxygen Delivery Method Room Air Intake Visit Reasons: Follow up and labs/cm Intake Note: Patient presents for follow up. Allergies tramadol Allergy (Severe, Verified 01/16/24 09:58) Rash trazodone Adverse Reaction (Severe, Verified 01/16/24 09:58) hives Medication List - Last Reconciled 01/16/24 by Christine Gill MD amlodipine 5 mg PO DAILY bupropion HCl XL 150 mg PO DAILY cholecalciferol (vitamin D3) 50 mcg PO DAILY clonidine HCl 0.2 mg PO BID PRN diclofenac sodium 1% 4 grams topical QID gabapentin 1,200 mg (2 x 600 mg) PO TID NS hydrochlorothiazide 50 mg PO DAILY hydroxychloroquine 200 mg PO BID insulin aspart U-100 subcut insulin glargine (Lantus Solostar U-100 Insulin) 10 units subcut QPM metformin 1,000 mg PO BID mirtazapine 30 mg PO BEDTIME oxycodone 5 mg PO BID quetiapine 50 mg PO BEDTIME tizanidine 4 mg PO TID PRN triamcinolone acetonide 0.1% 1 appl topical BID walker Folding front wheeled walker HPI Comments Details: This is a 58-year-old female with SLE who presents for follow-up. She states that she continues to have flare-ups of lupus rashes on her upper back, upper chest, upper arms, she applies triamcinolone cream most days. It does help. She is scheduled for an injection in her lower back by pain management in February and right knee replacement by Orthopedics in March. [facility] Medical History Smoker Pain in the shins Bilateral knee swelling Surgical History Hx laparoscopic cholecystectomy Hx of tubal ligation Hx of section Family History Brother Diabetes Mother Hypertension Breast cancer, Onset Age: 49 Father Hypertension Maternal Grandmother Breast cancer Maternal Aunt Breast cancer, Onset Age: 53 Social History Household Members: Family Housing: House Alcohol intake: never Patient Tobacco Use Status: Current someday Tobacco user Tobacco use type: Cigarette Cigarette Packs Per Day: 0.5 service: No Current occupational status: unemployed Review of Systems Musc Reports back pain, Reports arthralgias, Reports limited range of motion, Reports radiating pain into limb and Reports stiffness Skin/Breast Reports alopecia and Reports lesions Physical Exam Vital Signs: Last Vital Signs Pulse 87 01/16/24 09:59 BP 132/80 01/16/24 09:59 Pulse Ox 99 01/16/24 09:59 Oxygen Delivery Method Room Air 01/16/24 09:59 BMI result Body Mass Index 37.3 Const General: cooperative, healthy appearing and comfortable Nutritional Appearance: obese morbidly obese Orientation/consciousness: patient oriented x3 Limitations: no limitations HEENT Head: Yes normocephalic and Yes atraumatic Mouth: moist mucous membranes Resp Effort & Inspection: normal respiratory effort and able to speak in complete sentences Auscultation: clear to auscultation bilaterally Cardio Rate: regular rate Rhythm: regular rhythm Skin Other: Significant scarring alopecia of her scalp. Old lesions She has subacute discoid lesions on her upper back upper arms and upper chest Neuro General: patient oriented x3 Extrem Other: No active synovitis both hands and wrists Right knee swelling and significantly limited range of motion Assessment & Plan Assessment & Plan (1) Lupus: Comment: DISCOID LESIONS, SUB-ACUTE SKIN LESIONS 2008 ARTHRALGIAS, MILD PROTEINURIA - resolved; kidney bx 10/2019 - class II nephritis(sees Dr. 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 She remains on hydroxychloroquine 200 mg Twice daily Her lupus has been very well controlled overall. Continue with hydroxychloroquine 200 mg Twice daily Labs before next visit in 4 months (2) Lupus anticoagulant disorder: Comment: Pulmonary embolus in 1998 No AC since 1999 2019 + lupus anticoagulant + cardiolipin IgM+++ beta 2 glycoprotein IgM Code(s): D68.62 - Lupus anticoagulant syndrome Category: Medical Plan: PE in the context of and preeclampsia. Had a afterwards without thromboembolic complications (3) Long-term use of hydroxychloroquine: Comment: eye exam OK 01/14; 07/17, 05/19, 06/21, 09/24, 12/26. 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 With regards to her lupus. Her lupus has been well controlled for a long time. Stable on hydroxychloroquine 200 mg Twice daily. Not on steroids. No objection from Rheumatology standpoint to proceed with right knee replacement. Advised patient to continue with hydroxychloroquine 200 mg Twice daily throughout surgery unless she will be on additional meds that can interact with hydroxychloroquine (eg QTC prolonging meds) With regards to her history of lupus anticoagulant syndrome and PE. She has not had any blood clots in over 2 decades, she is off anticoagulation however given her history may need perioperatively anticoagulation. Referred patient to Hematology Plan I spent 30 minutes reviewing patient's chart, evaluating patient, ordering diagnostic workup, counseling patient and documenting in the chart Orders: Orders Complement C4 4 Months M32.9 - Systemic lupus erythematosus, unspecified DNA Double Stranded-Crithidia 4 Months M32.9 - Systemic lupus erythematosus, unspecified Protein Creatinine Ratio, Ur 4 Months M32.9 - Systemic lupus erythematosus, unspecified Anti DNA DS Antibody 4 Months M32.9 - Systemic lupus erythematosus, unspecified Complement C3 4 Months M32.9 - Systemic lupus erythematosus, unspecified C Reactive Protein 4 Months M32.9 - Systemic lupus erythematosus, unspecified Erythrocyte Sedimentation Rate 4 Months M32.9 - Systemic lupus erythematosus, unspecified UA w Microscopic 4 Months M32.9 - Systemic lupus erythematosus, unspecified Complete Blood Count Auto Diff 4 Months M32.9 - Systemic lupus erythematosus, unspecified Comprehensive Met. Panel 4 Months M32.9 - Systemic lupus erythematosus, unspecified Referrals Hematology & Oncology Referral D68.62 - Lupus anticoagulant syndrome Coding Level of Care Code Est Pt Level 4 (58515) Complex EM visit Add On G2211 Diagnoses Lupus M32.9 Lupus anticoagulant disorder D68.62 Long-term use of hydroxychloroquine Z79.899 Pre-op evaluation Z01.818
[2024-01-16 09:59] VITALS: BP 132/80; PULSE 87; O2SAT 99; BMI 37.3
== END 2024-01-16 10:14 | disposition home or self-care (01) ==
PROVIDERS: PCP Student in an Organized Health Care Education/Training Program; Visit Provider Student in an Organized Health Care Education/Training Program
DX: M32.9 Systemic lupus erythematosus, unspecified (principal); D68.62 Lupus anticoagulant syndrome; Z79.899 Other long term (current) drug therapy; Z01.818 Encounter for other preprocedural examination
CPT/HCPCS: 99214; G2211

== ENCOUNTER → 2024-01-16 09:54 | Outpatient (BNVA) | payer MEDICARE, SELFPAY | PROVIDERS: PCP Student in an Organized Health Care Education/Training Program; Visit Provider Student in an Organized Health Care Education/Training Program | DX: Z01.818 Encounter for other preprocedural examination (principal); M32.9 Systemic lupus erythematosus, unspecified; D68.62 Lupus anticoagulant syndrome; Z79.899 Other long term (current) drug therapy | CPT/HCPCS: 99212 ==

== ENCOUNTER → 2024-02-16 09:54 | Outpatient (BNV) | payer MEDICARE, SELFPAY | PROVIDERS: PCP Internal Medicine; Referring Provider Student in an Organized Health Care Education/Training Program; Visit Provider Internal Medicine | DX: D68.62 Lupus anticoagulant syndrome (principal) | CPT/HCPCS: 99204 ==

== ENCOUNTER → 2024-02-26 10:26 | Outpatient (BNVA) | payer MEDICARE, SELFPAY | PROVIDERS: PCP Internal Medicine | DX: Z01.818 Encounter for other preprocedural examination (principal) ==

== ENCOUNTER 2024-02-27 06:20 | Outpatient (REF) | payer MEDICARE, SELFPAY ==
--- NOTE | ~2024-02-27 | FL_ITS ---
EXAMINATION: FL GUIDANCE ONLY HISTORY: M47.816 - Spondylosis without myelopathy or radiculopathy, lumbar region COMPARISON: Correlation is made to plain films of the lumbar spine dated 11/02/2023. TECHNIQUE: Fluoroscopy time: 0.5 minutes. Cumulative Dose: 28.9 mGy. DAP: 0.503 uGy-m2 (microgray-meter squared). Images: 12. FINDINGS: Images demonstrate needles, and subsequently contrast material, within the bilateral L3-4, L4-5, and L5-S1 facet joints. FL/FL guidance in treatment room IMPRESSION: Fluoroscopy during procedure. Please see procedure report for additional information. Electronically signed by: Ezequiel Pugh MD 02/27/2024 02:28 PM KIRA BOWER
== END 2024-02-27 06:21 | disposition home or self-care (01) ==
LOC: CF 06:20
PROVIDERS: Visit Provider Anesthesiology
DX: M47.816 Spondylosis without myelopathy or radiculopathy, lumbar region (principal); M54.50 Low back pain, unspecified
CPT/HCPCS: 64493; 64494; J2003; J2795; Q9967

== ENCOUNTER 2024-02-27 13:04 | Outpatient (AMB) | payer MEDICARE, SELFPAY ==
[2024-02-27 13:11] VITALS: BP 128/82; PULSE 90; RESP 16; O2SAT 99
--- NOTE | 2024-02-27 13:11 | A.OFFVIS_ITS ---
Vital Signs 02/27/24 13:11 02/27/24 13:53 BP 128/82 127/75 Blood Pressure Location Lt brachial Lt brachial Position Sitting Sitting Respiration 16 16 Pulse 90 89 Pulse Source Pulse Oximeter Pulse Oximeter Pulse Oximetry (%) 99 98 Oxygen Delivery Method Room Air Room Air Intake Visit Reasons: BILATERAL DIAGNOSTIC L3, L4, DRL5 MBB Allergies tramadol Allergy (Severe, Verified 02/27/24 13:12) Rash trazodone Adverse Reaction (Severe, Verified 02/27/24 13:12) hives Medication List - Last Reconciled 02/27/24 by Armida Turner LPN amlodipine 5 mg PO DAILY amlodipine 2.5 mg PO DAILY bupropion HCl XL 150 mg PO DAILY cholecalciferol (vitamin D3) 50 mcg PO DAILY clonidine HCl 0.2 mg PO BID PRN diclofenac sodium 1% 4 grams topical QID gabapentin 1,200 mg (2 x 600 mg) PO TID NS hydrochlorothiazide 50 mg PO DAILY hydroxychloroquine 200 mg PO BID insulin aspart U-100 100 units subcut DAILY insulin glargine (Lantus Solostar U-100 Insulin) 10 units subcut QPM lisinopril 20 mg PO DAILY metformin 1,000 mg PO BID mirtazapine 30 mg PO BEDTIME oxycodone 5 mg PO BID quetiapine 50 mg PO BEDTIME terbinafine HCl 250 mg PO DAILY tizanidine 4 mg PO TID PRN triamcinolone acetonide 0.1% 1 appl topical BID walker Folding front wheeled walker PFSH Medical History Smoker Pain in the shins Bilateral knee swelling Surgical History Hx laparoscopic cholecystectomy Hx of tubal ligation Hx of section Family History Brother Diabetes Mother Hypertension Breast cancer, Onset Age: 49 Father Hypertension Maternal Grandmother Breast cancer Maternal Aunt Breast cancer, Onset Age: 53 Social History (Updated 02/16/24 @ 10:01 by Ernst Rasmussen) Household Members: Family and Children Housing: House Alcohol intake: never Patient Tobacco Use Status: Current someday Tobacco user Tobacco use type: Cigarette Cigarette Packs Per Day: 0.5 service: No Current occupational status: unemployed and disabled Gender identity: Female Physical Exam Vital Signs: Last Vital Signs Pulse 89 02/27/24 13:53 Resp 16 02/27/24 13:53 BP 127/75 02/27/24 13:53 Pulse Ox 98 02/27/24 13:53 Oxygen Delivery Method Room Air 02/27/24 13:53 Assessment & Plan Assessment & Plan (1) Osteoarthritis of lumbar spine: Code(s): M47.816 - Spondylosis without myelopathy or radiculopathy, lumbar region Category: Medical (2) Lumbar spondylosis: Code(s): M47.816 - Spondylosis without myelopathy or radiculopathy, lumbar region Category: Medical (3) Myofascial low back pain: Code(s): M54.50 - Low back pain, unspecified Category: Medical Plan Diagnostic medial branch block L3,L4 dorsal ramus L5 bilateral.? ? ?Informed consent was explained to the patient. Risks and benefits were explained. The risks were explained as bleeding, infection, peripheral nerve damage, spinal cord damage and infection and headache. All questions were explained and? answered.? The patient was taken inside the operating room where he was positioned prone on the operating table. Time-out was performed delineating correct site, side, the nature of the procedure, patient's allergy, . All operating room staff was participating in OR time-out procedure. ? ? The lower back was prepped with ChloraPrep and draped with sterile towels.? C- arm was brought over the operating field and sq picture of L4-, L5 vertebra and S1 AREA were delineated on the screen.? Point of interest were delineated as confluence of superior articular process of L4 and L5 vertebra bilaterally with corresponding transverse processes as well as confluence of the sacral alae bilaterally with superior articular process of S1.? The projection of the point of interest to the skin were injected with the small amount of local anesthetic lidocaine 2% mixed with ropivacaine 0.5% 1-1 approximately 1 cc. After that 22 gauge 3.5 inch spinal needle was driven sequentially to the points of interest in tunnel vision fashion. After needles gently contacted the bone at the point of interests the needle was injected with small amount of the contrast.? The injection of the contrast did not demonstrate any intravascular or intrathecal spread of the contrast.? After that injection of the? ropivacaine 0.5%-1cc? was performed at each needle location.?after completion of the injections the needles were removed and Bandaids were applied. ? The patient tolerated procedure very well. Orders: Orders FL guidance in treatment room Today M47.816 - Spondylosis without myelopathy or radiculopathy, lumbar region Coding Level of Care Code Procedure Only Diagnoses Osteoarthritis of lumbar spine M47.816 Lumbar spondylosis M47.816 Myofascial low back pain M54.50
[2024-02-27 13:53] VITALS: BP 127/75; PULSE 89; RESP 16; O2SAT 98
--- OUTSIDE RECORDS SUMMARY | 2024-02-27 14:49 | XMS_ITS | Clinical Summary ---
Author Organization [facility] Facility Address [address] [address] Care Team Providers Care Risk Management Director Name Role Phone Unavailable Primary Care Provider Unavailabl e Medications olmesartan (BENICAR) 40 MG tablet Take 1 tablet (40 mg total) by mouth 1 (one) time each day 90 tablet 3 06/23/2021 Active Social History Tobacco Use Types Packs/Day Years Used Date Smoking Tobacco: Never Assessed Comments Unknown Sex and Gender Information Value Date Recorded Sex Assigned at Not on file Legal Sex Female 4:58 PM EST Gender Identity Not on file Sexual Orientation Not on file Plan of Treatment Health Maintenance Due Date Last Done Comments Breast Cancer Screening 1965 Hepatitis B Vaccine (1 of 3 - 19+ 3-dose series) 04/14/1986 Colorectal Cancer Screening: Annual FOBT 04/14/2016 Colorectal Cancer Screening: Colonoscopy 04/14/2016 Colorectal Cancer Screening: Sigmoidoscopy 04/14/2016 Influenza Vaccine (#1) 2023 Pneumococcal Vaccine: Pediat rics (0 to 5 Years) and At-Risk Patients (6 to 64 Years) Aged Out No longer eligible b ased on patient's age to complete this topic
--- OUTSIDE RECORDS SUMMARY | 2024-02-27 14:49 | XMS_ITS | Encounter Summary ---
Author Organization [facility] Address [address] [place] [address] Care Team Providers Care Oil Operator Name Role Phone Darrel Tony MD Primary Care Provider [phone] Encounter Details Date Type Department Care Team (Late st Contact Info) Description 02/05/2024 Telephone Internal Medicine [facility] [address] [facility] [place] [place] [address] Mariia Sandhu MA Social History Tobacco Use Types Packs/Day Years Used Date Smoking Tobacco: Every Day Cigarettes Smokeless Tobacco: Never Alcohol Use Standard Drinks/Week Comments No 0 (1 standard drink = 0.6 oz pur e alcohol) Sex and Gender Information Value Date Recorded Sex Assigned at Female 01/05/2024 2:55 PM EST Gender Identity Female 01/05/2024 2:55 PM EST Sexual Orientation Straight 01/05/2024 2: 55 PM EST Job Start Date Occupation Industry Not on file Not on file Not on file documented as of this encounter Progress Notes * Mariia Sandhu MA - 02/05/2024 10:51 AM EST Call request is for over due lab work to be done. ANNABELLE RMA * Mairia Sandhu MA - 02/05/2024 10:50 AM EST ----- Message from Sadie Garza MA sent at 02/05/2024 7:30 AM EST ----- ----- Message ----- From: SYSTEM Sent: 02/03/2024 1:15 AM EST To: # documented in this encounter Plan of Treatment Upcoming Encounters Date Type Department Care Team (Late st Contact Info) Description 03/13/2024 1:00 PM EST Office Visit Orthopedic Surgery - [place] [address] [phone] John Garvin, JENNIFER [address] [address] 04/08/2024 11:10 AM EST Appointment Radiology Department - [address] [phone] 04/10/2024 9:30 AM EST Office Visit Endocrinology - [address] [phone] Trish Hyatt PA [address] [place] [phone] 05/02/2024 2:00 PM EDT Office Visit Internal Medicine - [address] [phone] Darrel Tony MD [address] [place] [phone] documented as of this encounter Visit Diagnoses Not on filedocumented in this encounter Care Teams Oil Operator Relationship Specialty Start Date End Date Darrel Tony MD [address] [place] [id number] PCP - General Internal Medicine 11/22/21 documented as of this encounter
--- OUTSIDE RECORDS SUMMARY | 2024-02-27 14:49 | XMS_ITS | Clinical Summary ---
Author Organization [facility] [address] [facility] [address] [facility] [address] Address [address] [place] [address] Phone Care Team Providers Care Installations Inspector Name Role Phone Darrel Tony MD Primary Care Provider [phone] Allergies Active Allergy Reactions Criticality Noted Date Comments Tramadol Rash 11/08/2023 Trazodone Rash 11/08/2023 Medications Medication Sig Dispensed Refills Start Date End Date Status metFORMIN (GLUCOPHAGE) 1,000 mg tablet Take 1 tablet (1,000 mg total) by mouth 2 (two) times a day with meals. Active lisinopriL (PRINIVIL,ZESTRI L) 20 mg tablet Take 1 tablet (20 mg total) by mouth 1 (one) time each day. Active NON FORMULARY Na Sulfate-K Sulfate-Mg Sulf (Suprep Bowel Prep Kit) 17.5-3.13-1.6 GM/177ML Solution---Take 177 mL by mouth See Admin Instructions for 2 doses. - Oral Active glucagon 1 mg/0.2 mL auto-injector Inject 1 Device into the skin as needed for Other (low blood sugar). - Subcutaneous Active insulin aspart (NovoLOG) 100 UNIT/ML patient supplied pump Inject 2-10 Units into the skin 3 times daily (before meals). Inject three times a day with meals per scale IB BS 100-150: 7 units; 151-200: 8 unit; 201-250: 9 units; 251-300: 10 units; 301-350: 11 units; 351-400: 12 units - Subcutaneous, Plus 2 units for a high carb meals Active insulin glargine (LANTUS SoloStar) 100 unit/mL (3 mL) injection pen INJECT 65 UNITS INTO THE SKIN AT BEDTIME OR DIRECTED Active hydroCHLOROthiaz clara (HYDRODIURIL) 50 mg tablet Take 1 tablet (50 mg total) by mouth 1 (one) time each day. Active UNKNOWN TO PATIENT Incontinence Supply Disposable (Poise Ultimate Absorbency) Pads-1 Each by Does not apply route every 2 hours as needed (incontinence). - Does not apply Active nystatin (MYCOSTATIN) 100,000 unit/gram powder Apply to area of concern 2-3 times per day whenever rash is present. Active DICLOFENAC SODIUM TOP Diclofenac Sodium 1 % Gel- Apply 4 g topically 2 times daily as needed (Thigh pain). - Apply externally Active blood-glucose transmitter (DEXCOM G6 TRANSMITTER MISC) transmitter every 3 months Active blood-glucose sensor (DEXCOM G6 SENSOR MISC) 1 sensor every 10 days Active triamcinolone (KENALOG) 0.1 % ointment APPLY TO AFFECTED AREA 2 TIMES DAILY FOR UP TO TWO WEEKS Active gabapentin (NEURONTIN) 600 mg tablet Take 2 Tablets by mouth 2 Times Daily. - Oral Active QUEtiapine (SEROquel) 50 mg tablet Take 1 tablet (50 mg total) by mouth at bedtime. Active lancets 30 gauge misc 1 Stick by Does not apply route 3 times daily. - Does not apply Active glucose blood test strip 1 Strip by Does not apply route 3 times daily. - Does not apply Active cloNIDine (CATAPRES) 0.2 mg tablet Take 1 Tablet by mouth 2 times daily as needed for Other (Panic attacks). - Oral Active lidocaine (LIDODERM) 5 % patch Place 1 Patch onto the skin every 24 hours. Apply for no more than 12 hours in any 24 hour period. - Transdermal Active hydroxychloroqui ne (PLAQUENIL) 200 mg tablet Take 1 Tab by mouth 2 times daily. - Oral Active mirtazapine (REMERON) 30 mg tablet Take 1 tablet (30 mg total) by mouth at bedtime. 4 Active tiZANidine (ZANAFLEX) 4 mg capsule TAKE 1 CAPSULE BY MOUTH 3 TIMES DAILY NEEDED FOR MUSCLE SPASMS FOR UP TO 15 DAYS. 4 Active buPROPion XL (WELLBUTRIN XL) 150 mg 24 hr tablet Take 1 tablet (150 mg total) by mouth 1 (one) time each day in the morning. 4 Active cholecalciferol (VITAMIN D-3) 50 mcg (2,000 unit) tabletIndication s:Vitamin D deficiency, unspecified TAKE 1 TABLET BY MOUTH EVERY DAY 90 tablet 1 4 Active terbinafine (LamISIL) 250 mg tablet Take 1 tablet (250 mg total) by mouth 1 (one) time each day. 30 tablet 2 4 04/10/19 25 Active amLODIPine (NORVASC) 2.5 mg tablet Take 1 Tablet by mouth daily. With the 5 mg daily for a total of 7.5 mg - Oral 90 tablet 1 4 Active amLODIPine (NORVASC) 5 mg tablet Take 1 Tablet by mouth daily. With the 2.5 mg daily for a total of 7.5 mg - Oral 90 tablet 1 4 Active oxyCODONE (ROXICODONE) 10 mg immediate release tablet Take 0.5 tablets (5 mg total) by mouth every 8 (eight) hours if needed for severe pain for up to 28 days. Max Daily Amount: 15 mg 42 tablet 5 03/11/19 25 Active fluconazole (DIFLUCAN) 150 mg tablet Take 1 tab by mouth now. May repeat in 72 hours if still symptomatic. 01/29/20 24 Discontinued amLODIPine (NORVASC) 2.5 mg tablet Take 1 Tablet by mouth daily. With the 5 mg daily for a total of 7.5 mg - Oral 01/29/20 24 Discontinued(Reo rder) amLODIPine (NORVASC) 5 mg tablet Take 1 Tablet by mouth daily. With the 2.5 mg daily for a total of 7.5 mg - Oral 01/29/20 24 Discontinued(Reo rder) oxyCODONE (ROXICODONE) 10 mg immediate release tablet Take 0.5 tablets (5 mg total) by mouth every 8 (eight) hours if needed for severe pain for up to 28 days. Max Daily Amount: 15 mg 42 tablet 4 02/11/19 25 Discontinued(Reo rder) Active Problems Problem Noted Date Diagnosed Date CKD (chronic kidney disease) stage 2, GFR 60-89 ml/min 12/12/2023 Essential hypertension, benign 11/08/2023 Morbid obesity 11/08/2023 Discoid lupus 11/08/2023 Esophageal reflux 11/08/2023 Systemic lupus erythematosus 11/08/2023 Depression, major 11/08/2023 Fibromyalgia 11/08/2023 Carpal tunnel syndrome, bilateral 11/08/2023 Type 2 diabetes mellitus, wi th long-term current use of insulin 11/08/2023 Adrenal adenoma, left 11/08/2023 Type 2 diabetes mellitus wit h microalbuminuria, with long-term current use of insulin 11/08/2023 Microalbuminuria 11/08/2023 Lupus anticoagulant positive 11/08/2023 Vitamin D deficiency 11/08/2023 Diabetic polyneuropathy asso ciated with type 2 diabetes mellitus 11/08/2023 Other chronic pain 11/08/2023 Pancreatitis 11/08/2023 Primary osteoarthritis of right knee 11/08/2023 Encounters Date Type Department Care Team Description 02/05/2024 Telephone Internal Medicine - [address] [phone] Mariia Sandhu MA 01/29/2024 10:00 AM EST Consult Internal Medicine - [address] [phone] Darrel Tony MD Preop examination 01/10/2024 1:00 PM EST Office Visit Orthopedic Surgery - [place] [address] [place] [address] [place] [phone] John Garvin DPM Controlled type 2 diabetes with neuropathy (CMS/HCC) (Primary Dx); Hammertoes of both feet; Dermatophytosis, nail 12/12/2023 2:15 PM EST Office Visit Nephrology - [address] [phone] Wagner Herrera MD CKD (chronic kidney disease) stage 2, GFR 60-89 ml/min (Primary Dx); Type 2 diabetes mellitus with microalbuminuria, with long-term current use of insulin (CMS/HCC); Systemic lupus erythematosus, unspecified SLE type, unspecified organ involvement status ([facility]) 12/11/2023 Telephone Internal Medicine - [place] [address] [place] [address] Mariia Sandhu MA Request For Order(s) ([facility] ) from Last 3 Months Immunizations Name Administration Dates Next Due Influenza Quadravalent, MDCK , 0.5ml, preservative free (Flucelvax) 6mo and older 12/17/2020 Influenza trivalent, with pr eservative (Fluzone; Afluria) 6mo and older 11/26/2019,12/06/2016,10/30/2015 Influenza, Unspecified 11/07/2011 Moderna SARS-CoV-2 COVID-19, mRNA, LNP-S, preservative free 09/10/2020,08/20/2020 Pneumococcal polysaccharide 23 valent (Pneumovax 23) 2yo and older 03/26/2018 Td Tetanus diptheria (Tdvax) 7yo and older 03/26 Surgical History Surgery Date Site/Laterality Comments CHOLECYSTECTOMY 1998 PROCEDURE: LAPAROSCOPY, CHOLECYSTECTOMY SECTION PROCEDURE: [place] DELIVERY ONLY; COMMENT: X4 TUBAL LIGATION PROCEDURE: HISTORICAL TUBAL LIGATION CHOLECYSTECTOMY PROCEDURE: [place] LAPAROSCOPY SURG CHOLECYSTECTOMY Medical History Medical History Date Comments Other pulmonary embolism and infarction 1998 DX:Other pulmonary embolism and infarction 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; COMMENT: scalp, arms; + biopsy 11/2005 Systemic lupus erythematosus ([facility]) 09/01/2006 DX:Systemic lupus erythemato espinoza ([facility]); COMMENT: DISCOID LESIONS, SUB-ACUTE SKIN LESIONS ARTHRALGIAS, MILD PROTEINURIA + Anti-DNA, Anti-EDGE [employer]ER, Anti-Sm, SS-A Esophageal reflux DX:Esophageal reflux Essential hypertension, benign 05/30/2005 D X:Essential hypertension, benign Obesity DX:Obesity 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 D X: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 Type 2 diabetes mellitus ([facility]) 03/01/2018 DX:Type 2 diabetes mellitus ([facility]) Vitamin D deficiency 11/14/2019 DX:Vitamin D deficiency History of 2019 novel pool virus disease (COVID-19) 01/22/2020 DX:History of 2019 novel cor onavirus disease (COVID-19); COMMENT: Early January 2020 Epigastric pain DX:Epigastric pa in Change in bowel habits DX:Change in bowel habits Abdominal cramping DX:Abdominal cramping Family History Medical History Relation Name Comments Breast cancer Aunt m aunt dx age 53, ali ve and well Diabetes Brother Hypertension Father Prostate cancer Father Breast cancer Maternal Grandmother a ge 78 Breast cancer Mother dx age 49, rec urrence 2007 met to bone and liver currently on chemo Hyperlipidemia Mother Hypertension Mother Blindness Neg Hx Cataracts Neg Hx Glaucoma Neg Hx Macular degeneration Neg Hx Strabismus Neg Hx Relation Name Status Comments Aunt m aunt Brother Alive 2,healthy Father Maternal Grandfather Maternal Grandmother Mother Paternal Grandfather Paternal Grandmother Social History Tobacco Use Types Packs/Day Years Used Date Smoking Tobacco: Every Day Cigarettes Smokeless Tobacco: Never Tobacco Cessation:Ready to Q uit: Not Asked; Counseling Given: Not Answered Alcohol Use Standard Drinks/Week Comments No 0 (1 standard drink = 0.6 oz pur e alcohol) Sex and Gender Information Value Date Recorded Sex Assigned at Female 01/05/2024 2:55 PM EST Gender Identity Female 01/05/2024 2:55 PM EST Sexual Orientation Straight 01/05/2024 2: 55 PM EST Job Start Date Occupation Industry Not on file Not on file Not on file Obstetrics History Last Filed Vital Signs Vital Sign Reading Time Taken Comments Blood Pressure 118/78 01/29/2024 11:17 AM EST Pulse 92 01/29/2024 10:23 AM EST Temperature - - Respiratory Rate - - Oxygen Saturation - - Inhaled Oxygen Concentration - - Weight 114 kg (250 lb 11.2 oz) 01/29/2024 10:23 AM EST Height 175.3 cm (5' 9 ) 01/29/2024 10:23 AM EST Body Mass Index 37.02 01/29/2024 10:23 AM EST Plan of Treatment Upcoming Encounters Date Type Department Care Team (Late st Contact Info) Description 03/13/2024 1:00 PM EST Office Visit Orthopedic Surgery - [place] [phone] [phone] John Garvin DPM [address] [facility] [address] [place] [phone] 04/08/2024 11:10 AM EST Appointment Radiology Department - [address] [phone] 04/10/2024 9:30 AM EST Office Visit Endocrinology - [address] [phone] Trish Hyatt PA [address] [place] [phone] 05/02/2024 2:00 PM EDT Office Visit Internal Medicine - [address] [phone] Darrel Tony MD [address] [place] [address] Health Maintenance Due Date Last Done Comments Diabetes: Annual Foot Exam 04/14/1977 Diabetes: Annual Retina Eye Exam 04/14/1977 Hepatitis B Vaccines (1 of 3 - 19+ 3-dose series) 04/14/1986 Zoster Vaccines (1 of 2) 04/14/2017 Pneumococcal Vaccine: Pediatrics (0 to 5 Years) and At-Risk Patients (6 to 64 Years) (2 of 2 - PCV) 03/26/2019 03/26/2018 COVID-19 Vaccine (3 - Moderna risk series) 10/08/2020 09/10/2020, 08/20/2020 Colorectal Cancer Screening: Colonoscopy 01/14/2022 Depression Screening 01/14/2022 HIV Screening 01/14/2022 Hepatitis C Screening 01/14/2022 Medicare Annual Wellness Visit 01/14/2022 Social Influencers of Health Screening 01/14/2022 Diabetes: Annual Urine Albumin-Creatinine Ratio (uACR) 08/31/2023 08/30/2022 Influenza Vaccine (#1) 2023 , 11/26/2019, 12/06/2016, Additional history exists Diabetes: Blood Sugar Control Test (HGBA1C) 04/24/2024 10/26/2023 Diabetes: Annual GFR (Glomerular Filtration Rate) 10/25/2024 10/26/2023, 06/27/2023 Hypertension/CHF/CAD Annual BMP Blood Test 10/25/2024 10/26/2023, 06/27/2023 Breast Cancer Screening 03/30/2025 03/30/2023 Cervical Cancer Screening: Pap Smear 05/02/2026 05/03/2023 DTaP,Tdap,and Td Vaccines (2 - Td or Tdap) 03/26/2028 03/26/2018 Cholesterol Screening (Lipid Panel) 10/25/2028 10/26/2023 HIB Vaccines Aged Out No longer eligi ble based on patient's age to complete this topic HPV Vaccines Aged Out No longer eligi ble based on patient's age to complete this topic Hepatitis A Vaccines Aged Out No long er eligible based on patient's age to complete this topic IPV Vaccines Aged Out No longer eligi ble based on patient's age to complete this topic MMR Vaccines Aged Out No longer eligi ble based on patient's age to complete this topic Meningococcal ACWY Vaccine Aged Out N o longer eligible based on patient's age to complete this topic RSV Immunization Patients Under 20 months Aged Out No longer eligible based on patient's age to complete this topic Varicella Vaccines Aged Out No longer eligible based on patient's age to complete this topic Procedures Procedure Name Priority Date/Time Associated Diagnosis Comments EXTERNAL CLINICAL LAB 01/19/2024 EXTERNAL CLINICAL LAB 01/18/2024 EXTERNAL CLINICAL LAB 01/17/2024 EXTERNAL CLINICAL LAB 01/16/2024 PAP SMEAR Routine 05/03/2023 SCREENING MAMMOGRAPHY BI 2-VIEW BREAST INC CAD Routine 03/30/2023 9:57 AM EST Encounter for screening mammogram for malignant neoplasm of breast HM URINE ALBUMIN CREATININE RATIO Routine 08/30/2022 from Last 3 Months or Most Recently Relevant to Health Maintenance Results * External clinical lab (01/19/2024) Only the most recent of4 resultswithin the time period is included. Provider [facility] BLOOD ORDERA BLES * Pap smear (05/03/2023) 05/03/2023 Narrative HISTORICAL TESTING LAB RESULTING AGENCY - 05/08/2023 2:56 PM EDT [id number] THINPREP PAP, IMAGED: NEGATIVE FOR SQUAMOUS INTRAEPITHELIAL LESION AND MALIGNANCY . ALBERT WALKER , QUINN(ASCP) (CASE ELECTRONICALLY SIGNED 05 08 2023) RESULT OF APTIMA HIGH RISK HPV ASSAY: HIGH RISK HPV: ??NEGATIVE (SEROTYPES 16,18,31,33,35,39,45,51,52,56,58,59,66,68) COMPLETED ON 2023-05-08 ADEQUACY: SATISFACTORY ENDOCERVICAL/TRANSFORMATION ZONE COMPONENT ABSENT. SOURCE: THINPREP PAP HPV ANY DX: ??REFLEX 16 AND 18, CERVICAL, IMAGED CLINICAL INFORMATION: HPV ANY DIAGNOSIS. MENOPAUSE, Z12.4 Jackeline Novoa [facility] CYTOLOGY ORDERAB LES HISTORICAL TESTING LAB RESULTING AGENCY * SCREENING MAMMOGRAPHY BI 2-VIEW BREAST INC CAD (03/30/2023 9:57 AM EST) Anatomical Region Laterality Modality Radiographic Zoraida ging 01/31/2023 12:2 4 PM EST Narrative 03/30/2023 6:49 PM EST This is a summary report. The complete report is available in the patient's medical record. If you cannot access the medical record, please contact the sending organization for a detailed fax or copy. BILATERAL 3D DIGITAL SCREENING MAMMOGRAM History: Routine screening. ??No current breast complaints. ??Family history of breast cancer Comparison: Multiple priors dating back to 02/12/2009 Technique: Bilateral full-field digital 3D mammography was performed using standard CC and MLO projections CAD was used to evaluate this mammogram. Findings: Density: ??There are scattered areas of fibroglandular density-B RIGHT: No suspicious masses, groups of microcalcification or areas of architectural distortion identified. Stable typically benign parenchymal asymmetries LEFT: No suspicious masses, groups of microcalcifications or areas of architectural distortion identified. Stable typically benign parenchymal asymmetries IMPRESSION: : 1. ??No mammographic evidence of malignancy. BI-RADS Category 2 benign findings Recommendation: Routine annual screening mammography is recommended Procedure Note Omega Pearce MD - 09/25/2023 This is a summary report. The complete report is available in thepatient's medical record. If you cannot access the medical record, pleasecontact the sending organization for a detailed fax or copy. BILATERAL 3D DIGITAL SCREENING MAMMOGRAM History: Routine screening. No current breast complaints. Family historyof breast cancer Comparison: Multiple priors dating back to 02/12/2009 Technique: Bilateral full-field digital 3D mammography was performed usingstandard CC and MLO projections CAD was used to evaluate this mammogram. Findings: Density: There are scattered areas of fibroglandular density-B RIGHT: No suspicious masses, groups of microcalcification or areas ofarchitectural distortion identified. Stable typically benign parenchymalasymmetries LEFT: No suspicious masses, groups of microcalcifications or areas ofarchitectural distortion identified. Stable typically benign parenchymalasymmetries IMPRESSION: : 1. No mammographic evidence of malignancy. BI-RADS Category 2 benign findings Recommendation: Routine annual screening mammography is recommended Darrel Tony MD IMG XR PROCEDURES * Urine Albumin Creatinine Ratio (08/30/2022) Urine Albumin Creatinine Ratio stracted Historical Provider MD MARTINA Gallego from Last 3 Months or Most Recently Relevant to Health Maintenance Care Teams Installations Inspector Relationship Specialty Start Date End Date Darrel Tony MD [address] [place] [id number] PCP - General Internal Medicine 11/22/21
--- OUTSIDE RECORDS SUMMARY | 2024-02-27 14:49 | XMS_ITS | Encounter Summary ---
Author Organization [facility] Address [address] [place] [address] Care Team Providers Care Keno Writer/Runner Name Role Phone Darrel Tony MD Primary Care Provider [phone] Reason for Visit * Reason Comments Pre-op Exam Encounter Details Date Type Department Care Team (Late st Contact Info) Description 01/29/2024 10:00 AM EST Consult Internal Medicine - [address] [phone] Darrel Tony MD [address] [place] [id number] Preop examination Social History Tobacco Use Types Packs/Day Years [...] on file documented as of this encounter Last Filed Vital Signs Vital Sign Reading [...] Mass Index 37.02 01/29/2024 10:23 AM EST documented in this encounter Progress Notes * Morena Morrison MA - 01/29/2024 10:00 AM ESTAddended by: MORENA MORRISON on: 01/29/2024 03:26 PM Modules accepted: Orders * Darrel Tony MD - 01/29/2024 10:00 AM EST Preop Referring MD: Levar Stapleton MD Galina Doyle is a 58 y.o. old female who presents for consultation. HPI: Galina Doyle is scheduled for right total knee arthroscopy on 04/03/2024. Her functional status is equal to 4 mets as she can walk 1 block and 1 flight of stairs without chest pain and shortness of breath. She has not had problems with anesthesia or bleeding. Patient is currently scheduled with [facility] for positive lupus anticoagulant test. She will need preop clearance from hematology. She follows up with rheumatology for SLE. She follows up with psychiatry extremity for history of anxiety and depression. ROS: Constitutional: no weakness fever or sweats Skin: no rashes, lesions, pruritus Eyes: no blurred vision, pain, or discharge ENT: no mouth pain, oral bleeding, or discharge Respiratory: no shortness of breath, cough, or wheezing Cardiovascular: no chest pain or palpitations, no orthopnea or PND GI: no nausea, vomiting or diarrhea; no rectal bleeding or dark stools : no dysuria or frequency; no nocturia or hesitancy Musculoskeletal: See HPI Neurologic: no fainting, seizures, tremors, or blackouts; no weakness or numbness Hematologic: no excessive bleeding or bruising Endocrine: no increase in hunger, thirst, or urination PAST MEDICAL HISTORY: Past Medical History: Diagnosis Date Abdominal cramping DX:Abdominal cramping Change in bowel habits DX:Change in bowel habits Epigastric pain DX:Epigastric pain Esophageal reflux DX:Esophageal reflux Essential hypertension, benign 05/30/2005 DX:Essential hypertension, benign History of 2019 novel coronavirus disease (COVID-19) 01/22/2020 DX:History of 2019 novel coronavirus disease (COVID-19); COMMENT: Early January 2020 Lupus erythematosus 06/22/2006 DX:Lupus erythematosus; COMMENT: scalp, arms; + biopsy 11/2005 Obesity DX:Obesity Other pulmonary embolism and infarction 1998 DX:Other pulmonary embolism and infarction 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 DX: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 Systemic lupus erythematosus (CMS/HCC) 09/01/2006 DX:Systemic lupus erythematosus ([facility]); COMMENT: DISCOID LESIONS, SUB-ACUTE SKIN LESIONS ARTHRALGIAS, MILD PROTEINURIA + Anti-DNA, Anti-DIRECTOR OF FINANCE, Anti-Sm, SS-A Type 2 diabetes mellitus ([facility]/HCC) 03/01/2018 DX:Type 2 diabetes mellitus ([facility]) Vitamin D deficiency 11/14/2019 DX:Vitamin D deficiency PAST SURGICAL HISTORY: Past Surgical History: Procedure Laterality Date SECTION PROCEDURE: TN DELIVERY ONLY; COMMENT: X4 CHOLECYSTECTOMY 1998 PROCEDURE: LAPAROSCOPY, CHOLECYSTECTOMY CHOLECYSTECTOMY PROCEDURE: TN LAPAROSCOPY SURG CHOLECYSTECTOMY TUBAL LIGATION PROCEDURE: HISTORICAL TUBAL LIGATION SOCIAL HISTORY: Social History Socioeconomic History Marital status: Single Spouse name: None Number of children: None Years of education: None Highest education level: None Occupational History None Tobacco Use Smoking status: Every Day Current packs/day: 0.50 Types: Cigarettes Smokeless tobacco: Never Substance and Sexual Activity Alcohol use: No Drug use: No Sexual activity: None Comment: BTL Other Topics Concern None Social History Narrative Divorcee since 2009, new partner x 2 yrs. She has 4 children ages 19, 16, 12, and 10 yrs. 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 FAMILY HISTORY: Family History Problem Relation Name Age of Onset Hypertension Mother Hyperlipidemia Mother Breast cancer Mother dx age 49, recurrence 2007 met to bone and liver currently on chemo Prostate cancer Father Hypertension Father Diabetes Brother Breast cancer Maternal Grandmother age 78 Breast cancer Aunt m aunt dx age 53, alive and well Blindness Neg Hx Cataracts Neg Hx Glaucoma Neg Hx Macular degeneration Neg Hx Strabismus Neg Hx ACTIVE MEDICATIONS: No outpatient medications have been marked as taking for the 01/29/24 encounter (Consult) with Darrel Tony MD. ALLERGIES: Allergies Allergen Reactions Tramadol Rash Trazodone Rash PHYSICAL EXAM: Visit Vitals BP (!) 142/84 Pulse 92 Ht 1.753 m (69 ) Wt 114 kg (250 lb 11.2 oz) BMI 37.02 kg/m?? OB Status Postmenopausal Smoking Status Every Day BSA 2.28 m?? General: the patient is in no acute distress. EYE exam: PERRLA. Neck: no thyromegaly. Lungs: clear to percussion and auscultation. Heart: regular rhythm without murmurs, rubs, or gallops. Abdominal exam: positive bowel sounds; soft, nontender and without hepatosplenomegaly. Extremities: no cyanosis, clubbing or edema. Neurological: alert & oriented times 3 Skin exam: no rashes or lesions. LABS: (01/15/2024): WBC 4.9, hemoglobin 12.3, hematocrit 37.6, platelet 211 Sodium 141, potassium 3.5, chloride 111, bicarbonate 25, BUN 14, creatinine 0.72, glucose 121 AST 17, ALT 13, alkaline phosphatase 74 Testing: EKG: Sinus rhythm without ST elevations depressions . ASSESSMENT AND PLAN: 1. Preop examination The patient's perioperative cardiovascular risk is at an average or acceptable risk for the proposed procedure as listed in progress note. However, patient will need clearance from hematology given her lupus anticoagulant positive. documented in this encounter Plan of Treatment Upcoming Encounters Date Type Department Care Team (Late st Contact Info) Description 03/13/2024 1:00 PM EST Office Visit Orthopedic Surgery - [place] [address] [facility] [address] [place] [phone] John Garvin DPM [address] [facility] [address] [place] [phone] 04/08/2024 11:10 AM EST Appointment Radiology Department - [address] [phone] 04/10/2024 9:30 AM EST Office Visit Endocrinology - [address] [phone] Trish Hyatt PA [address] [place] [phone] 05/02/2024 2:00 PM EDT Office Visit Internal Medicine - [address] [phone] Darrel Tony MD [address] [place] [phone] Pending Results Name Type Priority Associated Diagnoses Date /Time ECG 12 lead ECG Routine Preop examination 01/29/2024 3:25 PM EST Scheduled Orders Name Type Priority Associated Diagnoses Orde r Schedule Hemoglobin A1c Lab Routine Preop examination 1 Occurrences starting 01/29/2024 until 01/28/2025 documented as of this encounter Visit Diagnoses Diagnosis Preop examination Unspecified pre-operative examination Encounter for screening mammogram for breast cancer documented in this encounter Discontinued Medications Medication Sig Discontinue Reason Start Date End Da te fluconazole (DIFLUCAN) 150 mg tablet Take 1 tab by mouth now. May repeat in 72 hours if still symptomatic. 01/29/2024 documented as of this encounter Care Teams Keno Writer/Runner Relationship Specialty Start Date End Date Darrel Tony MD [address] [place] [phone] PCP - General Internal Medicine 11/22/21 documented as of this encounter
== END 2024-02-27 13:53 | disposition home or self-care (01) ==
LOC: HO.PMCPRC 13:04
PROVIDERS: PCP Internal Medicine; Visit Provider Anesthesiology
DX: M47.816 Spondylosis without myelopathy or radiculopathy, lumbar region (principal); M54.50 Low back pain, unspecified
CPT/HCPCS: 64493; 64494

== ENCOUNTER 2024-03-06 10:35 | Outpatient (AMB) | payer MEDICARE, SELFPAY ==
--- NOTE | 2024-03-06 10:35 | MHC.OFFVIS ---
Vital Signs 03/06/24 10:41 Height 5 ft 9 in Weight 248 lb BMI 36.6 BP 142/87 H Blood Pressure Location Rt brachial Position Sitting Pulse 95 Pulse Source Pulse Oximeter Pulse Oximetry (%) 97 Oxygen Delivery Method Room Air Intake Visit Reasons: BILATERAL DIAGNOSTIC L3, L4, DRL5 MBB Intake Note: Pain today 04/15 Bit Setter Required: No Accompanied by: Self / Same As Patient Allergies tramadol Allergy (Severe, Verified 03/06/24 10:40) Rash trazodone Adverse Reaction (Severe, Verified 03/06/24 10:40) hives HPI Comments Details: Galina presents back to the office today for follow-up, one-week status post bilateral diagnostic L3-L4 DR L5 medial branch blocks She endorses 80% pain relief with improvement in functional mobility for 8 hours after the procedure Denies any untoward effects Prior: Patient presents back to the office today for follow-up lower back pain She has been attending physical therapy without improvement. If anything she says that physical therapy is making her pain worse. Taking tizanidine with minimal improvement, would like dose increase Unable take nonsteroidal anti-inflammatory medications due to history of gastric ulcers, has been applying topical diclofenac with minimal improvement. Recent x-ray results are pending Intake: Galina is a very pleasant 58-year-old female who presents to the office today for evaluation and management of her chronic lower back pain She endorses midline lower back pain with radiation down both lower extremities that started approximately 8 months ago. Does have a longstanding history of lower back pain but states it has been significantly worse over the last few months. Endorses midline lower back pain with radiation down the back of both legs. Pain today is rated a 7/10, constant and worse at night. Pain is exacerbated by twisting, lumbar extension, walking, standing, sitting and stairs She is currently taking gabapentin for pain with some improvement. Unable to take nonsteroidal anti-inflammatory medications secondary to gastric ulcers. She has tried Tylenol in the past but it gives her headaches, did not improve her back pain. Patient has tried topical patches, topical creams, anti-inflammatory creams all without improvement of her symptoms Denies recent imaging. She has not tried physical therapy, acupuncture, massage or previous attempts at injections. In terms of muscle damage condition is described as aching, hot, burning, stabbing, sharp Pain is negatively impacting patient's enjoyment of life, general activity, recreational activities, sleep and walking. Endorses current use of nicotine/tobacco Denies current use of alcohol or illicit substances Denies implantable devices, pacemaker or defibrillator [facility] Medical History (Updated 03/05/24 @ 09:26 by Dari Plata RN) Glaucoma Pulmonary embolism GERD (gastroesophageal reflux disease) Diabetes Lupus anticoagulant disorder HTN (hypertension) Depression Osteoarthritis Lumbar spondylosis Smoker Bilateral knee swelling Surgical History (Updated 02/16/24 @ 16:07 by Monalisa Quiroz MD) Hx laparoscopic cholecystectomy Hx of tubal ligation Hx of section Family History Brother Diabetes Mother Hypertension Breast cancer, Onset Age: 49 Father Hypertension Maternal Grandmother Breast cancer Maternal Aunt Breast cancer, Onset Age: 53 Social History (Updated 02/16/24 @ 10:01 by Ernst Rasmussen) Household Members: Family and Children Housing: House Alcohol intake: never Patient Tobacco Use Status: Current someday Tobacco user Tobacco use type: Cigarette Cigarette Packs Per Day: 0.5 service: No Current occupational status: unemployed and disabled Gender identity: Female Review of Systems Const All systems reviewed & are unremarkable except as noted in HPI and below Physical Exam Vital Signs: Last Vital Signs Pulse 95 03/06/24 10:41 BP 142/87 H 03/06/24 10:41 Pulse Ox 97 03/06/24 10:41 Oxygen Delivery Method Room Air 03/06/24 10:41 BMI result Body Mass Index 36.6 General: awake, alert, oriented. Answers questions appropriately. Fully engaged in examination. Skin: warm, dry, intact HEENT: Normocephalic. Hearing intact. Cardiac: External chest normal in appearance. Respiratory: No cough, audible wheezing or stridor. Abdomen: without gross distension. MS: No obvious swelling or deformities. Able to transition from sit to stand unassisted. Ambulates with bilaterally normal heel strike and toe off Neurological: Oriented to person, place, time and situation. Thought process intact. Ambulates with a antalgic gait Psychiatric: Appropriate mood and affect. Good judgment and insight. Results Reviewed Results Reviewed: 11/01/2022 XR/XR lumbar spine 2-3V FINDINGS: 5 nonrib-bearing lumbar-type vertebral bodies. Vertebral body heights are maintained. Alignment is maintained. Mild degenerative disc disease at L5-S1 with loss of disc space height, degenerative endplate spurring and facet arthropathy. Right upper quadrant cholecystectomy clips. IMPRESSION: Mild degenerative disc disease at L5-S1 with loss of disc space height, degenerative endplate spurring and facet arthropathy. Assessment & Plan Assessment & Plan (1) Osteoarthritis of lumbar spine: Code(s): M47.816 - Spondylosis without myelopathy or radiculopathy, lumbar region Category: Medical (2) Lumbar spondylosis: Code(s): M47.816 - Spondylosis without myelopathy or radiculopathy, lumbar region Category: Medical (3) Myofascial low back pain: Code(s): M54.50 - Low back pain, unspecified Category: Medical Plan Galina presented to the office today for follow-up, one-week status post bilateral diagnostic L3-L4 DR L5 medial branch blocks Endorses 80% pain relief with improvement in functional mobility for 8 hours after the procedure Discussed at length with the patient options for treatment including steroid injections, peripheral nerve stimulation with Sprint, RFA and more permanent neuromodulation. Pamphlet provided to patient. Patient has exhausted conservative therapy including PT, topical NSAIDs, oral medications, [id number] medications and prescription medications all without improvement of her symptoms. Will schedule for fluoroscopy guided bilateral L3 sprint PNS trial. She is aware that this will be completed in 2 procedures, left and right sides to be done separately with at least 2 weeks in between. Patient requesting Ativan for these procedures. She is having knee surgery April 03, states procedures need to be scheduled after June 01. All questions and concerns were answered, patient agrees to the plan. Follow up after procedure, sooner if needed Coding Level of Care Code Est Pt Level 3 (59506) Complex EM visit Add On G2211 Diagnoses Osteoarthritis of lumbar spine M47.816 Lumbar spondylosis M47.816 Myofascial low back pain M54.50
[2024-03-06 10:41] VITALS: BP 142/87; PULSE 95; O2SAT 97; BMI 36.6
--- OUTSIDE RECORDS SUMMARY | 2024-03-06 12:41 | XMS_ITS | Encounter Summary ---
Author Organization [facility] Address [address] [place] [address] Care Team Providers Care Director Underwriter Sales Name Role Phone Darrel Tony MD Primary Care Provider [phone] Reason for Visit * Reason Onset Date Comments Faxed Order 02/29/2024 [facility] Encounter Details Date Type Department Care Team (Late st Contact Info) Description 02/29/2024 [facility] [address] [place] [address] Darrel Tony MD [address] [place] [phone] Faxed Order ([facility] ) Social History Tobacco Use Types Packs/Day Years [...] as of this encounter Progress Notes * Eleonora Mathews - 03/06/2024 11:07 AM EST Please refax they did not rec. This thank you * Sherrie Morrison MA - 02/29/2024 3:10 PM EST Signed and faxed. * Raya Love - 02/29/2024 10:32 AM EST Orders from [facility] placed in Darrel Tony MD bin. Please complete and fax back to [phone]. Thank you. documented in this encounter Plan of Treatment Upcoming Encounters Date Type Department Care Team (Late st Contact Info) Description 03/13/2024 1:00 PM EST Office Visit Orthopedic Surgery - [place] [address] [phone] John Garvin, JENNIFER [address] [address] 04/08/2024 11:10 AM EST Appointment Radiology Department - [address] [phone] 04/10/2024 9:30 AM EST Office Visit Endocrinology - [address] [phone] Trish Hyatt PA [address] [place] [address] 05/02/2024 2:00 PM EDT Office Visit Internal Medicine - [address] [phone] Darrel Tony MD [address] [place] [phone] documented as of this encounter Visit Diagnoses Not on filedocumented in this encounter Care Teams Director Underwriter Sales Relationship Specialty Start Date End Date Darrel Tony MD [address] [place] [phone] PCP - General Internal Medicine 11/22/21 documented as of this encounter
--- OUTSIDE RECORDS SUMMARY | 2024-03-06 12:41 | XMS_ITS | Encounter Summary ---
Author Organization [employer] Address [address] [place] [address] Care Team Providers Care Barn Worker Name Role Phone Darrel Tony MD Primary Care Provider [phone] Encounter Details Date Type Department Care Team (Late st Contact Info) Description 02/05/2024 Telephone Internal Medicine - [facility] [address] [facility] [place] [place] [address] Mariia Sandhu MA Social History Tobacco Use [...] work to be done. ANNABELLE RMA * Mariia Sandhu MA - 02/05/2024 10:50 AM EST ----- Message from Sadie Garza MA sent at 02/05/2024 7:30 AM EST ----- ----- Message ----- From: SYSTEM Sent: 02/03/2024 1:15 AM EST To: # documented in this encounter Plan of Treatment Upcoming Encounters Date Type Department Care Team (Late st Contact Info) Description 03/13/2024 1:00 PM EST Office Visit Orthopedic Surgery - [place] [address] [phone] John Garvin, JENNIFER [address] [address] 04/08/2024 11:10 AM EST Appointment Radiology Department - [address] [phone] 04/10/2024 9:30 AM EST Office Visit Endocrinology - [address] [phone] Trish Hyatt PA [address] [place] [address] 05/02/2024 2:00 PM EDT Office Visit Internal Medicine - [address] [phone] Darrel Tony MD [address] [place] [address] documented as of this encounter Visit Diagnoses Not on filedocumented in this encounter Care Teams Barn Worker Relationship Specialty Start Date End Date Darrel Tony MD [address] [place] [address] PCP - General Internal Medicine 11/22/21 documented as of this encounter
--- OUTSIDE RECORDS SUMMARY | 2024-03-06 12:41 | XMS_ITS | Clinical Summary ---
Author Organization [facility] [address] [facility] Address [address] [facility] [place] [address] Phone Care Team Providers Care Waist Cutter Name Role Phone Darrel Tony MD Primary Care Provider [phone] Allergies Active Allergy Reactions Criticality Noted Date Comments Tramadol Rash 11/08/2023 Trazodone Rash 11/08/2023 Medications Medication Sig Dispensed Refills Start Date End Date Status metFORMIN (GLUCOPHAGE) 1,000 mg tablet Take 1 tablet (1,000 mg total) by mouth 2 (two) times a day with meals. Active lisinopriL (PRINIVIL,ZESTRIL ) 20 mg tablet Take 1 tablet (20 [...] THE SKIN AT BEDTIME OR DIRECTED Active hydroCHLOROthiazi de (HYDRODIURIL) 50 mg tablet Take 1 tablet [...] any 24 hour period. - Transdermal Active hydroxychloroquin e (PLAQUENIL) 200 mg tablet Take 1 Tab by mouth 2 times daily. - Oral Active mirtazapine (REMERON) 30 mg tablet Take 1 tablet (30 mg total) by mouth at bedtime. 12/02/2023 Active tiZANidine (ZANAFLEX) 4 mg capsule TAKE 1 CAPSULE BY MOUTH 3 TIMES DAILY NEEDED FOR MUSCLE SPASMS FOR UP TO 15 DAYS. 04/19/2023 Active buPROPion XL (WELLBUTRIN XL) 150 mg 24 hr tablet Take 1 tablet (150 mg total) by mouth 1 (one) time each day in the morning. 12/02/2023 Active cholecalciferol (VITAMIN D-3) 50 mcg (2,000 unit) tabletIndications :Vitamin D deficiency, unspecified TAKE 1 TABLET BY MOUTH EVERY DAY 90 tablet 1 12/29/2023 Active terbinafine (LamISIL) 250 mg tablet Take 1 tablet (250 mg total) by mouth 1 (one) time each day. 30 tablet 2 01/10/2024 5 Active amLODIPine (NORVASC) 2.5 mg tablet Take 1 Tablet by mouth daily. With the 5 mg daily for a total of 7.5 mg - Oral 90 tablet 1 01/29/2024 Active amLODIPine (NORVASC) 5 mg tablet Take 1 Tablet by mouth daily. With the 2.5 mg daily for a total of 7.5 mg - Oral 90 tablet 1 01/29/2024 Active oxyCODONE (ROXICODONE) 10 mg immediate release tablet Take 0.5 tablets (5 mg total) by mouth every 8 (eight) hours if needed for severe pain for up to 28 days. Max Daily Amount: 15 mg 42 tablet 02/12/2024 5 Active oxyCODONE (ROXICODONE) 10 mg immediate release tablet Take 0.5 tablets (5 mg total) by mouth every 8 (eight) hours if needed for severe pain for up to 28 days. Max Daily Amount: 15 mg 42 tablet 01/05/2024 5 Discontinue d(Reorder) Active Problems Problem Noted Date Diagnosed Date [...] Encounters Date Type Department Care Team Description 02/29/2024 Telephone Internal Medicine - [address] [phone] Darrel Tony MD Faxed Order ([facility] ) 02/05/2024 Telephone Internal Medicine - [address] [phone] Mariia Sandhu MA 01/29/2024 10:00 AM EST Consult Internal Medicine - [address] [phone] Darrel Tony MD Preop examination 01/10/2024 1:00 PM EST Office Visit Orthopedic Surgery - [place] [address] [place] [phone] John Garvin DPM Controlled type 2 diabetes with neuropathy ([facility]) (Primary Dx); Hammertoes of both feet; Dermatophytosis, nail 12/12/2023 2:15 PM EST Office Visit Nephrology - [address] [phone] Wagner Herrera MD CKD (chronic kidney disease) stage 2, GFR 60-89 ml/min (Primary Dx); Type 2 diabetes mellitus with microalbuminuria, with long-term current use of insulin ([facility]); Systemic lupus erythematosus, unspecified SLE type, unspecified organ involvement status ([facility]) 12/11/2023 Telephone Internal Medicine - [address] [phone] Mariia Sandhu MA Request For Order(s) ([facility] ) from Last 3 Months Immunizations Name [...] CHOLECYSTECTOMY 1998 PROCEDURE: LAPAROSCOPY, CHOLECYSTECTOMY SECTION PROCEDURE: MD DELIVERY ONLY; COMMENT: X4 TUBAL LIGATION PROCEDURE: HISTORICAL TUBAL LIGATION CHOLECYSTECTOMY PROCEDURE: MD LAPAROSCOPY SURG CHOLECYSTECTOMY Medical History Medical History Date Comments Other pulmonary embolism and infarction 1998 DX:Other pulmonary embolism and infarction 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; COMMENT: scalp, arms; + biopsy 11/2005 Systemic lupus erythematosus (CMS/HCC) 09/01/2006 DX:Systemic lupus erythemato espinoza (HCC); COMMENT: DISCOID LESIONS, SUB-ACUTE SKIN LESIONS ARTHRALGIAS, MILD PROTEINURIA + Anti-DNA, Anti-PHARMACEUTICAL SALES, Anti-Sm, SS-A Esophageal reflux DX:Esophageal reflux Essential hypertension, benign 05/30/2005 D X:Essential hypertension, benign Obesity DX:Obesity 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 D X: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 Type 2 diabetes mellitus (CMS/HCC) 03/01/2018 DX:Type 2 diabetes mellitus ([facility]) Vitamin D deficiency 11/14/2019 DX:Vitamin D deficiency [...] cancer Mother dx age 49, rec urrence 2008 met to bone and liver currently on [...] PM EST Office Visit Orthopedic Surgery - [place] [address] [phone] John Garvin DPM [address] [address] 04/08/2024 11:10 AM EST Appointment Radiology Department - [address] [phone] 04/10/2024 9:30 AM EST Office Visit Endocrinology - [address] [phone] Trish Hyatt PA [address] [place] [address] 05/02/2024 2:00 PM EDT Office Visit Internal Medicine - [address] [phone] Darrel Tony MD [address] [place] [address] Health Maintenance Due Date Last Done Comments [...] RESULTING AGENCY - 05/08/2023 2:56 PM EDT [id number] THINPREP PAP, IMAGED: NEGATIVE FOR SQUAMOUS INTRAEPITHELIAL LESION AND MALIGNANCY . QUINN CARMICHAEL(ASCP) (CASE ELECTRONICALLY SIGNED 05 08 2023) RESULT OF APTIMA HIGH RISK HPV ASSAY: HIGH RISK HPV: ??NEGATIVE (SEROTYPES 16,18,31,33,35,39,45,51,52,56,58,59,66,68) COMPLETED ON 2023-05-08 ADEQUACY: SATISFACTORY ENDOCERVICAL/TRANSFORMATION ZONE COMPONENT ABSENT. SOURCE: THINPREP PAP HPV ANY DX: ??REFLEX 16 AND 18, CERVICAL, IMAGED CLINICAL INFORMATION: HPV ANY DIAGNOSIS. MENOPAUSE, Z12.4 Jackeline [facility] CYTOLOGY ORDERAB LES HISTORICAL TESTING LAB [...] Recently Relevant to Health Maintenance Care Teams Waist Cutter Relationship Specialty Start Date End Date Darrel Tony MD [address] [place] [address] PCP - General Internal Medicine 11/22/21
--- OUTSIDE RECORDS SUMMARY | 2024-03-06 12:41 | XMS_ITS | Clinical Summary ---
Author Organization [facility] Facility Address [address] [address] Care Team Providers Care Medical Care Administrator Name Role Phone Unavailable Primary Care Provider [...]
== END 2024-03-06 11:09 | disposition home or self-care (01) ==
PROVIDERS: PCP Internal Medicine; Visit Provider Registered Nurse Emergency
DX: M47.816 Spondylosis without myelopathy or radiculopathy, lumbar region (principal); M54.50 Low back pain, unspecified
CPT/HCPCS: 99213; G2211

== ENCOUNTER → 2024-03-06 10:35 | Outpatient (BNVA) | payer MEDICARE, SELFPAY | PROVIDERS: PCP Internal Medicine; Visit Provider Registered Nurse Emergency | DX: M47.816 Spondylosis without myelopathy or radiculopathy, lumbar region (principal); M54.50 Low back pain, unspecified | CPT/HCPCS: 99212 ==

== ENCOUNTER 2024-03-28 09:17 | Outpatient (AMB) | payer MEDICARE, SELFPAY ==
[2024-03-28 09:29] VITALS: BMI 36.6
--- NOTE | 2024-03-28 09:29 | MHC.OFFVIS ---
Vital Signs 03/28/24 09:29 Height 5 ft 9 in Weight 248 lb BMI 36.6 Intake Visit Reasons: Pre Op - right TKA 04/03/24 NE Intake Note: Galina is a 58 year old female who presents today for a pre op appointment for her right total knee arthroplasty 04/03/24 NE. Patient was given a pain management consent form. Allergies tramadol Allergy (Severe, Verified 03/28/24 09:34) severe rash trazodone Adverse Reaction (Severe, Verified 03/28/24 09:34) hives HPI HPI Pre Op - right TKA 04/03/24 NE: Details: Ms. Doyle is a 58-year-old?female?who presents in the office today for?her?preoperative history and physical exam prior to a?right total knee arthroplasty?to be performed on?04/03/2024?by?Dr. Stapleton.? 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 Additionally, she is unable to take Tylenol if it induces migraine headaches for her. [facility] Medical History (Updated 03/28/24 @ 10:32 by Juli Hair PA-C) Arthritis Chronic renal insufficiency Glaucoma Pulmonary embolism GERD (gastroesophageal reflux disease) Diabetes Lupus anticoagulant disorder HTN (hypertension) Depression Osteoarthritis Lumbar spondylosis Smoker Bilateral knee swelling Surgical History History of esophagogastroduodenoscopy (EGD) H/O colonoscopy Hx of excision of mass Hx laparoscopic cholecystectomy Hx of tubal ligation Hx of section Family History Brother Diabetes Mother Hypertension Breast cancer, Onset Age: 49 Father Hypertension Maternal Grandmother Breast cancer Maternal Aunt Breast cancer, Onset Age: 53 Social History Household Members: Family and Children Household Members Other:: children Housing: House Are you a primary home care assistant to a significant other at home: No Do you presently have visiting nurse or other home services: Yes ([employer] via [facility]) Alcohol intake: never Patient Tobacco Use Status: Current everyday Tobacco user Tobacco use type: Cigarette Cigarette Packs Per Day: 0.5 Cigarettes Per Day: 10 Years Smoked: 32 service: No Current occupational status: unemployed and disabled Gender identity: Female Review of Systems Const All systems reviewed & are unremarkable except as noted in HPI and below Physical Exam Vital Signs: BMI result Body Mass Index 36.6 Const General: cooperative, healthy appearing, comfortable, no acute distress, well developed, alert and awake Orientation/consciousness: patient oriented x3 HEENT Head: Yes normal to inspection, Yes normocephalic and Yes atraumatic Eyes General: appearance normal, both eyes and all related structures Neck Neck: Yes normal visual inspection and Yes no lymphadenopathy Resp Effort & Inspection: normal respiratory effort and able to speak in complete sentences Cardio Rate: regular rate GI Inspection: Yes normal to inspection Skin General skin exam: no rashes or lesions noted Neuro General: patient oriented x3 Extrem Other: 10-130 degrees of motion mild effusion. Medial and lateral tenderness to palpation severe gait antalgia. Psych Mental Status: mental status grossly normal Assessment & Plan Assessment & Plan (1) Osteoarthritis of right knee: Code(s): M17.11 - Unilateral primary osteoarthritis, right knee Category: Medical Plan Ms. Doyle is a 58-year-old?female?who presents in the office today for?her?preoperative history and physical exam prior to a?right total knee arthroplasty?to be performed on?04/03/2024?by?Dr. Stapleton.? 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 Additionally, she is unable to take Tylenol if it induces migraine headaches. I discussed in detail the procedure and what to expect pre and post operatively. We discussed the risks, benefits and alternatives to the surgery as well as the rehabilitation course. The risks; which include, but are not limited to infection, bleeding, nerve injury, ongoing pain, swelling, and stiffness, perioperative risk of injury to bones and soft tissues, and blood clots. I?ve answered all questions and with their understanding they have consented to move forward with right total knee arthroplasty with Dr. Stapleton. Of note, the patient does suffer from alopecia related to her lupus. She would like to wear a head covering and a to cover her head into surgery followed by a surgical here cap. This is very important to her that when she wakes up she still has the head covering on. R TKA w/NE 04/03/24. Patient has lupus. Please see below RE; Dr. Quiroz Consult: Patient is overweight and is a smoker. She was therefore at high-risk of perioperative thromboembolism. I will resubmit lupus anticoagulant test in March. She will need mechanical and chemical thromboprophylaxis, ideally low-molecular weight heparin for extended duration, approximately 6 weeks postoperatively. Patient was advised about smoking cessation as it is another risk factor for thrombosis. Unable to take NSAIDs due to hx of gastric ulcer Unable to take tylenol - induces migraine headaches Orders: Orders XR knee RT 3V Today M25.569 - Pain in unspecified knee XR knee LT 1V Today M25.569 - Pain in unspecified knee Coding Level of Care Code Global (04085) Diagnoses Osteoarthritis of right knee M17.11
--- OUTSIDE RECORDS SUMMARY | 2024-03-28 09:59 | XMS_ITS | Data Portability ---
Author Organization [place] [facility] [place] in [facility] Address [address] [place] [id number] Care Team Providers Care Self Propelled Dredge Operator Name Role Phone [facility] Primary Care Provi nahum HIM [facility] OTHER Assessment No assessment recorded. Plan of Treatment Reminders Order Date Submit Date Provider Last Modified By Organization Details Last Modified Time Details Appointments None recorded. Lab BMP, serum or plasma [address], [address] [place] [address], [id number], 5 13:22:39 rapid SARS CoV 2 Ag, QL [place], respiratory specimen [address], [address] [place] [address], [phone], 5 13:22:39 rapid flu (A+B) [address], [address] [place] [address], [id number], 5 13:22:39 Referral None recorded. Procedures None recorded. Surgeries None recorded. Imaging None recorded. Medication Orders ondansetron 4 mg disintegrat ing tablet 2024 025 [facility] #[id number], [address] [place], [phone], 5 12:41:16 Patient TargetsNo targets recorded. Patient InstructionsNo instructions recorded. Reason for Referral None Reported. Results Created Date Observation Date Name Description Value Unit Range Abnormal Flag Note LastModifiedBy Organization Detail LastModifiedTime Result Notes None recorded. Medical Equipment None Reported. Allergies Allergen ID Allergen Name Allergen Category Reaction Reaction Severity Criticality Documentation Date Start Date Code Code System Note Provider Name and Address Organization Details Recorded Time 04120 trazodone medicatio n Not available Not available Not available 03/19/2024 70308 RxNorm Not Available Days of [facility] - production 5 10:04:02 00170 tramadol medicatio n Not available Not available Not available 03/19/2024 76046 RxNorm Not Available [facility] - production 5 10:04:02 Medications Name Sig Start Date Stop Date Status Note LastModified by Organization Details LastModified Time cyclobenzapr ine 10 mg tablet TAKE 1 TABLET BY MOUTH EVERY DAY AT BEDTIME NEEDED FOR MUSCLE SPASM active Not Available Not Available No t Available amoxicillin 500 mg capsule TAKE 1 CAPSULE BY MOUTH 3 TIMES A DAY FOR 7 DAYS UNTIL FINISHED active Not Available Not Available No t Available prednisone 10 mg tablet PLEASE SEE ATTACHED FOR DETAILED DIRECTIONS active Not Available Not Available N ot Available gabapentin 600 mg tablet TAKE 2 TABLETS ORALLY 3 TIMES A DAY active Not Available Not Available Not Available loperamide 2 mg capsule TAKE 1 CAPSULE BY MOUTH 4 TIMES DAILY NEEDED FOR DIARRHEA. active Not Available Not Available No t Available ibuprofen 800 mg tablet TAKE 1 TABLET BY MOUTH EVERY 6 TO 8 HOURS NEEDED FOR PAIN active Not Available Not Available No t Available hydrochlorot hiazide 50 mg tablet TAKE 1 TABLET BY MOUTH EVERY DAY active Not Available Not Available No t Available prazosin 1 mg capsule TAKE 1 CAPSULE BY MOUTH EVERYDAY AT BEDTIME active Not Available Not Available No t Available methylpredni solone 4 mg tablet PLEASE SEE ATTACHED FOR DETAILED DIRECTIONS active Not Available Not Available N ot Available amlodipine 2.5 mg tablet TAKE 1 TABLET BY MOUTH EVERY DAY active Not Available Not Available No t Available amlodipine 5 mg tablet TAKE 1 TABLET BY MOUTH EVERY DAY active Not Available Not Available No t Available bupropion HCl SR 100 mg tablet,12 hr sustained-re lease TAKE 1 TABLET BY MOUTH EVERY DAY IN THE MORNING active Not Available Not Available No t Available clonidine HCl 0.2 mg tablet TAKE 1 TABLET BY MOUTH TWICE A DAY NEEDED FOR PANIC ATTACK. active Not Available Not Available No t Available dicyclomine 20 mg tablet TAKE 1 TABLET BY MOUTH 4 TIMES A DAY NEEDED FOR ABDOMINAL PAIN active Not Available Not Available No t Available mirtazapine 30 mg tablet TAKE 1 TABLET BY MOUTH EVERY DAY AT NIGHT active Not Available Not Available No t Available metformin 1,000 mg tablet TAKE 1 TABLET BY MOUTH TWICE A DAY WITH FOOD active Not Available Not Available No t Available triamcinolon e acetonide 0.1 % topical ointment APPLY TO AFFECTED AREA 2 TIMES DAILY FOR UP TO TWO WEEKS active Not Available Not Available No t Available lidocaine 5 % topical patch APPLY 1 PATCH TOPICALLY DAILY. LEAVE PATCH ON FOR 12 HOURS AND THEN REMOVE active Not Available Not Available Not Available omeprazole 20 mg capsule,kina yed release TAKE 1 CAPSULE BY MOUTH 2 TIMES DAILY FOR 30 DAYS. active Not Available Not Available No t Available mirtazapine 15 mg tablet TAKE 1 TABLET BY MOUTH EVERY EVENING active Not Available Not Available No t Available ergocalcifer ol (vitamin D2) 1,250 mcg (50,000 unit) capsule TAKE 1 CAPSULE BY MOUTH ONCE A WEEK FOR 12 DOSES active Not Available Not Available No t Available hydroxychlor oquine 200 mg tablet TAKE 1 TABLET BY MOUTH TWICE A DAY active Not Available Not Available No t Available zolpidem 10 mg tablet TAKE 1 TABLET BY MOUTH EVERY DAY AT BEDTIME NEEDED FOR INSOMNIA active Not Available Not Available No t Available ondansetron 4 mg disintegrati ng tablet Dissolve 1 tablet under tongue every 8 hours 2024 active Not Available Not Available Not Avai lable oxycodone 5 mg tablet TAKE 1 TABLET BY MOUTH EVERY 8 HOURS NEEDED FOR PAIN FOR UP TO 28 DAYS. active Not Available Not Available Not Available Laxative (bisacodyl) 5 mg tablet,delay ed release TAKE 2 TABS BY MOUTH BEFORE BEGINNING BOWEL PREP.FOLLOW INSTRUCTION S GIVEN BY OFFICE FOR TIMING. active Not Available Not Available No t Available olmesartan 40 mg tablet TAKE 1 TABLET BY MOUTH EVERY DAY active Not Available Not Available No t Available insulin lispro (U-100) 100 unit/mL subcutaneous pen PLEASE SEE ATTACHED FOR DETAILED DIRECTIONS active Not Available Not Available N ot Available insulin aspart (U-100) 100 unit/mL (3 mL) subcutaneous pen PLEASE SEE ATTACHED FOR DETAILED DIRECTIONS active Not Available Not Available N ot Available duloxetine 20 mg capsule,kina yed release TAKE 2 CAPSULES BY MOUTH EVERY NIGHT active Not Available Not Available No t Available duloxetine 60 mg capsule,kina yed release TAKE 1 CAPSULE BY MOUTH EVERY DAY active Not Available Not Available No t Available tizanidine 4 mg capsule TAKE 1 TABLET ORALLY EVERY 6 HOURS active Not Available Not Available No t Available BD Insulin Syringe Ultra-Fine 0.5 mL 30 gauge x 1/2 USE WITH INSULIN VIALS active Not Available Not Available No t Available quetiapine 50 mg tablet TAKE 1 TABLET BY MOUTH EVERYDAY AT BEDTIME active Not Available Not Available No t Available BD Lo-Dose Micro-Fine IV 1/2 mL 28 gauge x 1/2 syringe USE WITH INSULIN VIALS active Not Available Not Available No t Available Lantus Solostar U-100 Insulin 100 unit/mL (3 mL) subcutaneous pen INJECT 57 UNITS INTO THE SKIN AT BEDTIME OR DIRECTED active Not Available Not Available Not Available oxycodone 10 mg tablet TAKE 1/2 TABLET BY MOUTH EVERY 8 HOURS NEEDED FOR OTHER (PAIN). active Not Available Not Available No t Available cholecalcife rol (vitamin D3) 50 mcg (2,000 unit) tablet TAKE 1 TABLET BY MOUTH EVERY DAY active Not Available Not Available No t Available GaviLyte-G 236 gram-22.74 gram-6.74 gram-5.86 gram oral solution START AT 6PM THE NIGHT BEFORE YOUR PROCEDURE DRINK 8OZ GLASSES AT YOUR OWN PACE UNTIL RECTALS CLEAR active Not Available Not Available No t Available Farxiga 10 mg tablet TAKE 1 TABLET BY MOUTH EVERY DAY active Not Available Not Available No t Available Farxiga 5 mg tablet TAKE 1 TABLET BY MOUTH EVERY DAY active Not Available Not Available No t Available EC-Naproxen 500 mg tablet,delay ed release TAKE 1 TABLET ORALLY TWICE DAILY AFTER MEALS active Not Available Not Available Not Available BD Elizabeth 2nd Gen Pen Needle 32 gauge x 32 USE ONE DAILY WITH INSULIN active Not Available Not Available No t Available OneTouch Ultra2 Meter USE TO CHECK BLOOD SUGAR 3 TIMES DAILY active Not Available Not Available Not Available OneTouch Delica Plus Lancet 30 gauge USE TO TEST BLOOD SUGAR 3 TIMES DAILY active Not Available Not Available No t Available Flowflex COVID-19 Antigen Home Test kit USE DIRECTED active Not Available Not Available No t Available Vitals Date Recorded Body weight Body height Body temperature Oxygen saturation Oxygen saturation in Arterial blood by Pulse oximetry Respiratory rate Heart rate Systolic blood pressure Diastolic blood pressure Provider Name and Address Organization Details Last Updated DateTime 5 747072. 816 g 175.26 cm 97.9 [degF] 100 % 100 % 16 /min 78 /min 132 mm[Hg] 92 mm[Hg] Not Available [facility] - production 5 12:19:57 Social History None recorded. Functional Status None recorded. Mental Status None recorded. Family History Nothing Reported. Medical History No medical history recorded. Gynecological HistoryNo gynecological history recorded. Obstetrics History GPAL:G 0 P 0 0 0 0 Past Encounters Encounter ID Performer Location Encounter Start Date Encounter Closed Date Diagnosis/Indication Diagnosis SNOMED-CT Code Diagnosis ICD10 Code Diagnosis Note [id number] Sushma Sanchez MD Main - [address] [phone] 03/19/2024 12:19:53 03/19/2024 17:52:46 Nausea and vomiting 60012539 R11.2 Evaluation in the field was performed by my dental equipment repairer colleague, as noted above, I provided real-time direction and supervisio n for this visit. 58yo F PMHx lupus, T2DM who p/w 2 weeks of respirator y symptoms (now resolved) and GI symptoms (nausea, vomiting, and increase from b/l diarrhea without abd pain or fever). Reports 5-6 stools daily and 2-3 vomiting daily. Denies sick contacts or urinary sx. No joint pain, rash, neurologic sx. No hx C diff but did complete course of cephalexin 1 wk ago. On dental equipment repairer eval VS wnl, exam unremarkab le. POC labs with K 3.8 lactate 1.15 and all rest also wnl. POC COVID and flu negative. Given reassuring labs and exam suspect viral illness that will self-resol ve, however DDx includes C diff and thus instructed pt to call PCP to arrange for C diff testing. Less likely DDx includes lupus enteritis or T2DM complicati on. Low suspicion for other intra-abdo delfino infection. PCP: please arrange for in person evaluation including C diff testing We discussed the diagnostic uncertaint y of home visits and the risk associated with this. In this case, the patient and I felt this to be an acceptable and reasonable amount of risk given the benefit of avoiding an ED visit. We discussed the need to seek care urgently/e mergently in the setting of any new or worsening serious symptoms, shortness of breath, cough, chest pain, fever. Health Concerns Section Related Observation LastModified by Organization Detai ls LastModified Time None Recorded Concern Status LastModified by Organization Details LastModified Time None Recorded Advance Directives Directive None Recorded Payers Encounter Date Sequence Insurance Name Policy Number Policy Claros Covered Member ID Claros Member ID Guarantor Name 03/19/2024 1 [facility] - DOS ON OR AFTER 2022 - DUAL ELIGIBLE - GROUP HOME OPTIONS AND ONE CARE (MEDICARE REPLACEMENT/ADV ANTAGE - HMO) Galina Doyle [id number] Galina Doyle Notes Date Note Type Note Provider Name and Address Organization Details Recorded Time 03/19/2024 text/html [facility] Nurse Triage Notes (Dolly Gunderson - RN): Reason For Request: Pt reporting diarrhea>rattling in her chest>headache>cough Patient Reports: Cough, fever greater than 2 days ; Cough Denies: Increased work of breathing/labored ? with or without fever Unable to speak in full sentences without distress Discoloration of skin -cyanosis Needs to sleep sitting up, can? t catch breath Shortness of breath in setting of confusion History of asthma, increased use of inhaler COPD Sputum increase Shortness of breath with exertion Pain with inspiration Chief Complaints: Cough, Headache, Diarrhea PMH: Diabetes Mellitus Type 2, Hypertension, Autoimmune Diseases (e.g., Lupus) PMH Reviewed at 03/19/2024 - :04 Allergies Reviewed at 03/19/2024 - :04 Comments: Home Health Clinical Supervisor verified the name//address and phone number. Pt calling for symptoms for over 2 weeks. She has had loose stool, ZAMUDIO, and cough. She has a dry cough, no sputum, but has rattle when she breaths. She denies any sob. She does have fever and chills. She has nausea and vomiting. She has been drinking fluids but as not been eating much. She has been taking Robitussin / but did not help. She has not taken anything for the loose stool. She does have chronic loose stool but it is more than normal. She denies any chest pain but does feel she had some heart palpitation Education provided on the response time and the Patient was advised to monitor reported s/s and seek emergency treatment if needed Valve Setter Organization Information for Abel Ron [employer] Legal Name: [facility] [employer] Address: [address] [place] [address], [place] [address], [employer]: Vito Gould MD CLIA No.: [id number] Valve Setter POC Test Results from Raschilla, Abel - ALS epoc (12:25:05) pH: 7.38 pH units pCO2: 49.1 mmHg pO2: 26.7 mmHg Na: 144 mmol/L K: 3.8 mmol/L iCa: 1.18 mmol/L Cl: 107 mmol/L TCO2: 28.2 mEq/L Hct: 39 % Hb: 13.2 g/dL Glu: 103 mg/dL Lac: 1.15 mmol/L Cr: 0.83 mg/dL BUN: 13 mg/dL A Rapid COVID antigen (::07) COVID: - Rapid influenza antigen (::08) Flu: - .................... .................... .................... .................... .................... .................... .................... . Valve Setter Note From Abel Ron: This 58-year-old female with a history including but not limited to HTN, DM type II, neuropathy, lupus requested a visit today to address two weeks of dry cough and one week of nausea, vomiting, diarrhea. Patient states she's treating the cough with OTC Tussin and TheraFlu. Patient states she is having six to seven watery stools per day and two to three episodes of vomiting per day. Patient denies any black/bloody stools or ememsis, chest pain, shortness of breath, dyspnea on exertion, headaches, abdominal pain, flank pain, known fevers. Patient states she was on cephalexin and finished it approximately one week ago. Patient reporting poor appetite and oral hydration, states she feels dehydrated. Patient presents awake and alert, in no acute distress and speaking full sentences. Her vital signs are reasonably stable and she is afebrile. Nonfocal neurological exam. Normal gait. Normal oropharynx exam. Lungs are clear throughout auscultation. Abdomen is soft, nontender, nondistended. No CVA tenderness. No lower extremity edema. Rapid COVID and flu testing are both negative. Unremarkable POC labs are uploaded. I treated this patient with lactated ringers 1 L IV. We discussed the diagnostic uncertainty of home visits and the risk associated with this. In this case, the patient and I felt this to be an acceptable and reasonable amount of risk given the benefit of avoiding an ED visit. I provided education on additional OTC/supportive care therapy as well as the BRAT diet and her ondansetron prescription. I recommend she follows up with her primary care physician today to discuss her symptoms and the need for stool testing. I recommend that she does not take any loperamide until she has her stool tested. I instructed her to present to the emergency department for any new or worsening severe symptoms such as severe abdominal or flank pain, black/bloody stools or emesis, high fever, altered mental status. The patient was given the opportunity to ask questions and is agreeable to this plan. .................... .................... .................... .................... .................... .................... .................... . [facility] Consulted: Sushma Sanchez .................... .................... .................... .................... .................... .................... .................... . Disposition: Fulfilled Sushma Sanchez MD [address] [facility],[address], [place], [phone], [place] - [employer] ARROYO 03/19/2024 13:23:04 OBGyn Episode No OBEpisode recorded.
--- OUTSIDE RECORDS SUMMARY | 2024-03-28 10:00 | XMS_ITS | Encounter Summary ---
Author Organization [employer] Address [address] [place] [address] Care Team Providers Care Collar Padder Blindstitch Name Role Phone Darrel Tony MD Primary Care Provider [phone] [phone] Reason for Visit * Reason Onset Date Comments Chest Pain 03/19/2024 GI Problem 03/19/2024 Encounter Details Date Type Department Care Team (Late st Contact Info) Description 03/19/2024 [facility] [address] [place] [address] Darrel Tony MD [address] [place] [address] Chest Pain; GI Problem Social History Tobacco Use Types Packs/Day Years Used Date Smoking Tobacco: Every Day Cigarettes Smokeless Tobacco: Never Alcohol Use Standard Drinks/Week Comments No 0 (1 standard drink = 0.6 oz pur e alcohol) Comments No Sex and Gender Information Value Date Recorded Sex Assigned at Female 01/05/2024 2:55 PM EST Legal Sex Female 11:24 PM EST Gender Identity Female 01/05/2024 2:55 PM EST Sexual Orientation Straight 01/05/2024 2: 55 PM EST documented as of this encounter Progress Notes * Carey Roque RN - 03/19/2024 9:31 AM EST Spoke to pt-denies any cp/ dizziness/SOB. but has been having congested cough with headaches/loose stools/heart beating faster/ \body aches and gen malaise x few wks. She doesn't have a thermometer to check for fever but she feels sick. Pt tested neg. for covid few days ago. Appt made (will cancel if mobile [facility] will eval her in her home as preferred). * Jacklyn Fritz - 03/19/2024 8:49 AM EST Patient call requires triage: Symptoms patient is presenting: chest pains, rattle in chest when breathing, cough, headache, diarrhea How long has patient had these symptoms?: 2 weeks For ALL patients calling to schedule any appointment (routine, sick visit, follow up, consult, etc.) in the outpatient setting please ask the following questions: Do you have fever of higher than 101, sore throat with difficulty swallowing or severe shortness ofbreath? no If YES to any of these above symptoms, send a message to triage and do not book. Red dot. If no, an audio or video visit should be booked. Have you had close contact with someone with Coronavirus in the last 14 days? no Have you traveled abroad? no Have you traveled recently to another state outside of [place], [place], [place], [place], [place], [place], [place]? no o If yes, did you quarantine for 14 days or have a negative covid test? no If yes to any of the above, patient is not to be scheduled in office until after 14 day quarantine or negative covid test. If pain or injury related was it due to an accident at work or from a motor vehicle accident? If yes, date of accident/Injury: No If yes, gather 3rd democrat insurance information Third Alliance Party Information: not applicable PCP: Darrel Tony MD [facility] MEDICARE / Plan: [facility] ONE CARE / Product Type: *No Product type* / documented in this encounter Plan of Treatment Upcoming Encounters Date Type Department Care Team (Shirley Contact Info) Description 04/08/2024 11:10 AM EST Appointment Radiology Department - [address] [phone] 04/10/2024 9:30 AM EST Office Visit Endocrinology - [address] [phone] Trish Hyatt PA [address] [place] [address] 05/02/2024 2:00 PM EDT Office Visit Internal Medicine - [address] [phone] Darrel Tony MD [address] [place] [address] documented as of this encounter Visit Diagnoses Not on filedocumented in this encounter Care Teams Collar Padder Blindstitch Relationship Specialty Start Date End Date Darrel Tony MD [address] [place] [address] PCP - General Internal Medicine 11/22/21 documented as of this encounter
--- OUTSIDE RECORDS SUMMARY | 2024-03-28 10:00 | XMS_ITS | Encounter Summary ---
Author Organization [facility] Address [address] [place] [address] Care Team Providers Care Highway Traffic Control Technician Name Role Phone Darrel Tony MD Primary Care Provider [phone] [phone] Reason for Visit * Reason Onset Date Comments Faxed Order 02/29/2024 [facility] Encounter Details Date Type Department Care Team (Late st Contact Info) Description 02/29/2024 [facility] [address] [place] [address] Darrel Tony MD [address] [place] [address] Faxed Order ([facility] ) Social History [...] - 02/29/2024 10:32 AM EST Orders from [facility] placed in Darrel Tony MD bin. Please complete and fax back to [phone]. Thank you. documented in this encounter Plan of Treatment Upcoming Encounters Date Type Department Care Team (Late st Contact Info) Description 04/08/2024 11:10 AM EST Appointment Radiology Department - [address] [phone] 04/10/2024 9:30 AM EST Office Visit Endocrinology - [address] [phone] Trish Hyatt PA [address] [place] [address] 05/02/2024 2:00 PM EDT Office Visit Internal Medicine - [address] [phone] Darrel Tony MD [address] [place] [address] documented as of this encounter Visit Diagnoses Not on filedocumented in this encounter Care Teams Highway Traffic Control Technician Relationship Specialty Start Date End Date Darrel Tony MD [address] [place] [address] PCP - General Internal Medicine 11/22/21 documented as of this encounter
--- OUTSIDE RECORDS SUMMARY | 2024-03-28 10:00 | XMS_ITS | Encounter Summary ---
Author Organization [employer] Address [address] [place] [address] Care Team Providers Care Merchandise Displayer Name Role Phone Darrel Tony MD Primary Care Provider [phone] [phone] Reason for Visit * Reason Onset Date Comments faxed order 03/26/2024 Encounter Details Date Type Department Care Team (Late st Contact Info) Description 03/26/2024 [facility] [address] [place] [address] Darrel Tony MD [address] [place] [address] faxed order Social History Tobacco Use Types Packs/Day Years [...] as of this encounter Progress Notes * Sherrie Morrison MA - 03/27/2024 1:09 PM EST Received. Signed and faxed back. * Mirtha Gilliland MA - 03/26/2024 1:51 PM EST [facility] Resending fax * Jacklyn Fritz - 03/26/2024 1:44 PM EST [facility] calling they did not receive PCP order form from 02/28 encounter. Needs this resent to [phone]. documented in this encounter Plan of Treatment Upcoming Encounters Date Type Department Care Team (Late st Contact Info) Description 04/08/2024 11:10 AM EST Appointment Radiology Department - [address] [phone] 04/10/2024 9:30 AM EST Office Visit Endocrinology - [address] [phone] Trish Hyatt PA [address] [place] [address] 05/02/2024 2:00 PM EDT Office Visit Internal Medicine - [address] [phone] Darrel Tony MD [address] [place] [address] documented as of this encounter Visit Diagnoses Not on filedocumented in this encounter Care Teams Merchandise Displayer Relationship Specialty Start Date End Date Darrel Tony MD [address] [place] [address] PCP - General Internal Medicine 11/22/21 documented as of this encounter
--- OUTSIDE RECORDS SUMMARY | 2024-03-28 10:00 | XMS_ITS | Clinical Summary ---
Author Organization [facility] [address] [facility] Building Address [address] [facility] [place] [address] Phone Care Team Providers Care Booking Prizer Name Role Phone Darrel Tony MD Primary Care Provider [phone] [phone] Allergies Active Allergy Reactions Criticality Noted Date Comments Tramadol Rash 11/08/2023 Trazodone Rash 11/08/2023 Medications metFORMIN (GLUCOPHAGE) 1,000 mg tablet Take 1 tablet (1,000 mg total) by mouth 2 (two) times a day with meals. Active lisinopriL (PRINIVIL,ZESTR IL) 20 mg tablet Take 1 tablet (20 [...] THE SKIN AT BEDTIME OR DIRECTED Active hydroCHLOROthia zide (HYDRODIURIL) 50 mg tablet Take 1 tablet [...] any 24 hour period. - Transdermal Active hydroxychloroqu ine (PLAQUENIL) 200 mg tablet Take 1 Tab by mouth 2 times daily. - Oral Active mirtazapine (REMERON) 30 mg tablet Take 1 tablet (30 mg total) by mouth at bedtime. 12/02/19 24 Active tiZANidine (ZANAFLEX) 4 mg capsule TAKE 1 CAPSULE BY MOUTH 3 TIMES DAILY NEEDED FOR MUSCLE SPASMS FOR UP TO 15 DAYS. 04/19/19 Active buPROPion XL (WELLBUTRIN XL) 150 mg 24 hr tablet Take 1 tablet (150 mg total) by mouth 1 (one) time each day in the morning. 12/02/19 Active cholecalciferol (VITAMIN D-3) 50 mcg (2,000 unit) tabletIndicatio ns:Vitamin D deficiency, unspecified TAKE 1 TABLET BY MOUTH EVERY DAY 90 tablet 1 12/29/19 24 Active terbinafine (LamISIL) 250 mg tablet Take 1 tablet (250 mg total) by mouth 1 (one) time each day. 30 tablet 2 01/10/20 24 025 Active amLODIPine (NORVASC) 2.5 mg tablet Take 1 Tablet by mouth daily. With the 5 mg daily for a total of 7.5 mg - Oral 90 tablet 1 01/29/20 Active amLODIPine (NORVASC) 5 mg tablet Take 1 Tablet by mouth daily. With the 2.5 mg daily for a total of 7.5 mg - Oral 90 tablet 1 01/29/20 Active oxyCODONE (ROXICODONE) 10 mg immediate release tablet Take 0.5 tablets (5 mg total) by mouth every 8 (eight) hours if needed for severe pain for up to 28 days. Max Daily Amount: 15 mg 42 tablet 03/11/19 25 025 Active oxyCODONE (ROXICODONE) 10 mg immediate release tablet Take 0.5 tablets (5 mg total) by mouth every 8 (eight) hours if needed for severe pain for up to 28 days. Max Daily Amount: 15 mg 42 tablet 02/11/19 25 025 Discontinu ed(Reorder ) cephalexin (KEFLEX) 500 mg capsule Take 1 capsule (500 mg total) by mouth 2 (two) times a day for 7 days. 14 each 03/07/19 25 025 Active Problems Problem Noted Date Diagnosed Date [...] Encounters Date Type Department Care Team Description 03/27/2024 Telephone [facility] [place] [phone] Darrel Tony MD Faxed Order ([facility] ) 03/26/2024 Telephone Internal Medicine - [facility] [address] [place], [place] [address] [place] [phone] Darrel Tony MD faxed order 03/19/2024 Telephone Internal Medicine - [facility] [address] [place], [place] [address] [place] [phone] Darrel Tony MD Chest Pain; GI Problem 02/29/2024 Telephone Internal Medicine - [facility] [place] [place] [phone] Darrel [facility] MD [facility] 02/05/2024 Telephone Internal Medicine - [facility] [place] [phone] Mariia Sandhu MA 01/29/2024 10:00 AM EST Consult [facility] [address] [place], [place] [address] [place] [place] [phone] Darrel Tony MD Preop examination 01/10/2024 1:00 PM EST Office Visit Orthopedic Surgery - [place] [address] [phone] John Garvin DPM Controlled type 2 diabetes with neuropathy ([facility]) (Primary Dx); Hammertoes of both feet; Dermatophytosis, nail from Last 3 Months Immunizations Name Administration [...] CHOLECYSTECTOMY 1998 PROCEDURE: LAPAROSCOPY, CHOLECYSTECTOMY SECTION PROCEDURE: [place] DELIVERY ONLY; COMMENT: X4 TUBAL LIGATION PROCEDURE: HISTORICAL TUBAL LIGATION CHOLECYSTECTOMY PROCEDURE: [place] LAPAROSCOPY SURG CHOLECYSTECTOMY Medical History Medical History Date Comments Other pulmonary embolism and infarction 1998 DX:Other pulmonary embolism and infarction 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; COMMENT: scalp, arms; + biopsy 11/2005 Systemic lupus erythematosus ([facility]) 09/01/2006 DX:Systemic lupus erythemato espinoza ([facility]); COMMENT: DISCOID LESIONS, SUB-ACUTE SKIN LESIONS ARTHRALGIAS, MILD PROTEINURIA + Anti-DNA, Anti-BICYCLE FITTER, Anti-Sm, SS-A Esophageal reflux DX:Esophageal reflux Essential hypertension, benign 05/30/2005 D X:Essential hypertension, benign Obesity DX:Obesity 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 D X: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 [address] [facility] [place] [phone] Darrel Tony MD [address] [facility] [place] [address] Health Maintenance Due Date Last Done Comments Diabetes: Annual Foot Exam 04/14/1977 Diabetes: Annual Retina Eye Exam 04/14/1977 Hepatitis B Vaccines (1 of 3 - 19+ 3-dose series) 04/14/1986 Zoster Vaccines (1 of 2) 04/14/2017 Pneumococcal Vaccine: 50+ Years (2 of 2 - PCV) 03/26/2019 03/26/2018 Pneumococcal Vaccine: Pediatrics (0 to 5 Years) [...] patient's age to complete this topic Meningococcal B Vacine Aged Out No lo nger eligible based on patient's age to complete [...] of4 resultswithin the time period is included. us Provider [facility] LAB BLOOD ORDERABLES Fin al Result * Pap smear (05/03/2023) 05/03/2023 Narrative HISTORICAL TESTING LAB RESULTING AGENCY - 05/08/2023 2:56 PM EDT [id number] THINPREP PAP, IMAGED: NEGATIVE FOR SQUAMOUS INTRAEPITHELIAL LESION AND MALIGNANCY . ALBERT WALKER , CT(ASCP) (CASE ELECTRONICALLY SIGNED 05 08 2023) RESULT OF APTIMA HIGH RISK HPV ASSAY: HIGH RISK HPV: ??NEGATIVE (SEROTYPES 16,18,31,33,35,39,45,51,52,56,58,59,66,68) COMPLETED ON 2023-05-08 ADEQUACY: SATISFACTORY ENDOCERVICAL/TRANSFORMATION ZONE COMPONENT ABSENT. SOURCE: THINPREP PAP HPV ANY DX: ??REFLEX 16 AND 18, CERVICAL, IMAGED CLINICAL INFORMATION: HPV ANY DIAGNOSIS. MENOPAUSE, Z12.4 us Jackeline Novoa [facility] LAB CYTOLOGY ORDERABLES Jadyn whitfield Result HISTORICAL TESTING LAB RESULTING AGENCY * SCREENING [...] recommended Darrel Tony MD IMG XR PROCEDURES Final R esult * Urine Albumin Creatinine Ratio (08/30/2022) Urine Albumin Creatinine Ratio stracted Historical Provider HEALTH MAINTENANCE Final Result from Last 3 Months or Most Recently Relevant to Health Maintenance Insurance [facility] ALLI[facility] MEDICARE Member Subscriber Plan / Payer (Ef fective 2023-Present) Name:Galina Doyle Relation to Subscriber:Self Name:Galina Doyle Payer ID:[id number] Group ID:[id number] Type:Not on file Address: [place] [address] [address] [address] Care Teams Booking Prizer Relationship Specialty Start Date End Date Darrel Tony MD [address] [place] [address] PCP - General Internal Medicine 11/22/21
--- OUTSIDE RECORDS SUMMARY | 2024-03-28 10:00 | XMS_ITS | Continuity of Care Document ---
Author Organization [place] [facility] [employer] [place] - [facility] Address [address] [place] [address] Care Team Providers Care Cooling Pan Tender Name Role Phone [facility] Primary Care Provi nahum HIM CCA OTHER Assessment No assessment recorded. Plan of Treatment Reminders Order Date Submit Date Provider Last Modified By Organization Details Last Modified Time Details Appointments None recorded. Lab BMP, serum or plasma [address], [address] [place] [address], [phone], 5 13:22:39 rapid SARS CoV 2 Ag, QL [place], respiratory specimen [address], [address] [place] [address], [phone], 5 13:22:39 rapid flu (A+B) [address], [address] [place] [address], [phone], 5 13:22:39 Referral None recorded. Procedures None recorded. Surgeries None recorded. Imaging None recorded. Medication Orders ondansetron 4 mg disintegrat ing tablet [address] [id number], [address] [place], [address], 5 12:41:16 Patient TargetsNo targets recorded. Patient [...] Name and Address Organization Details Recorded Time 58536 trazodone medicatio n Not available Not available Not available 03/19/2024 01005 RxNorm Not Available [employer] - production 5 10:04:02 52662 tramadol medicatio n Not available Not available Not available 03/19/2024 41065 RxNorm Not Available [employer] - production 5 10:04:02 Medications Name Sig [...] 2nd Gen Pen Needle 32 gauge x /32 USE ONE DAILY WITH INSULIN active Not [...] Address Organization Details Last Updated DateTime 5 859149. 816 g 175.26 cm 97.9 [degF] 100 % 100 % 16 /min 78 /min 132 mm[Hg] 92 mm[Hg] Not Available [employer] - production 5 12:19:57 Social History None recorded. Functional Status None recorded. Mental Status None recorded. Family History Nothing Reported. Medical History No medical history recorded. Gynecological HistoryNo gynecological history recorded. Obstetrics History GPAL:G 0 P 0 0 0 0 Past Encounters Encounter ID Performer Location Encounter Start Date Encounter Closed Date Diagnosis/Indication Diagnosis SNOMED-CT Code Diagnosis ICD10 Code Diagnosis Note [id number] Sushma Sanchez MD Main - [address] [phone] 03/19/2024 12:19:53 03/19/2024 17:52:46 Nausea and vomiting 19808253 R11.2 Evaluation in the field was performed by my cloth washer operator colleague, as noted above, I provided real-time [...] course of cephalexin 1 wk ago. On cloth washer operator eval VS wnl, exam unremarkab le. POC [...] by Organization Details LastModified Time None Recorded Payers Encounter Date Sequence Insurance Name Policy Number Policy Claros Covered Member ID Claros Member ID Guarantor Name 03/19/2024 1 [facility] - DOS ON OR AFTER 2022 - DUAL ELIGIBLE - USP OPTIONS AND ONE CARE (MEDICARE REPLACEMENT/ADV ANTAGE - HMO) Galina Doyle [id number] Galina Doyle Notes Date Note Type Note [...] (e.g., Lupus) PMH Reviewed at 03/19/2024 - : Allergies Reviewed at 03/19/2024 - :04 Comments: Manager Mobility verified the name//address and phone number. Pt [...] s/s and seek emergency treatment if needed Morale Officer Organization Information for Abel [employer] Business Legal Name: [facility] Transportation Address: [address] [place] [address], [place] [address], Timing Adjuster: Vito Gould MD CLIA No.: [id number] Morale Officer POC Test Results from [facility] (12:25:05) pH: 7.38 pH units pCO2: 49.1 mmHg pO2: 26.7 mmHg Na: 144 mmol/L K: 3.8 mmol/L iCa: 1.18 mmol/L Cl: 107 mmol/L TCO2: 28.2 mEq/L Hct: 39 % Hb: 13.2 g/dL Glu: 103 mg/dL Lac: 1.15 mmol/L Cr: 0.83 mg/dL BUN: 13 mg/dL A Rapid COVID antigen (12:25:07) COVID: - Rapid influenza antigen (12:25:08) Flu: - .................... .................... .................... .................... .................... .................... .................... . Morale Officer Note From Abel Ron: This 58-year-old female [...] .................... .................... .................... .................... .................... .................... . [facility] Consulted: Sushma Sanchez .................... .................... .................... .................... .................... .................... .................... . Disposition: Fulfilled Sushma Sanchez MD [address] [facility],[address], [place], [address], [facility] - [facility], [place] 03/19/2024 13:23:04 OBGyn Episode No OBEpisode recorded.
--- OUTSIDE RECORDS SUMMARY | 2024-03-28 10:00 | XMS_ITS | Clinical Summary ---
Author Organization [facility] Facility Address [address] [address] Care Team Providers Care Sheep Farm Worker Name Role Phone Unavailable Primary Care Provider [...]
--- OUTSIDE RECORDS SUMMARY | 2024-03-28 10:00 | XMS_ITS | Encounter Summary ---
Author Organization [facility] Address [address] [place] [address] Care Team Providers Care Grocery Store Associate Name Role Phone Darrel Tony MD Primary Care Provider +1 -[phone] Reason for Visit * Reason Onset Date Comments Faxed Order 03/27/2024 [facility] Encounter Details Date Type Department Care Team (Late st Contact Info) Description 03/27/2024 Telephone [facility] [address] [place] [address] Darrel Tony MD [address] [place] [place] [address] Faxed Order ([facility] ) Social History [...] Notes * Sherrie Morrison MA - 03/27/2024 1:10 PM EST Signed and faxed. * Raya Love - 03/27/2024 10:59 AM EST Orders from [facility] placed in Darrel Tony MD bin. Please complete and fax back to [phone]. Thank you. documented in this encounter Plan of Treatment Upcoming Encounters Date Type Department Care Team (Late st Contact Info) Description 04/08/2024 11:10 AM EST Appointment Radiology Department - [address] [phone] 04/10/2024 9:30 AM EST Office Visit Endocrinology - [address] [phone] Trish Hyatt PA [address] [place] [address] 05/02/2024 2:00 PM EDT Office Visit Internal Medicine - [address] [phone] Darrel Tony MD [address] [place] [address] documented as of this encounter Visit Diagnoses Not on filedocumented in this encounter Care Teams Grocery Store Associate Relationship Specialty Start Date End Date Darrel Tony MD [address] [place] [place] [address] PCP - General Internal Medicine 11/22/21 documented as of this encounter
== END 2024-03-28 09:54 | disposition home or self-care (01) ==
PROVIDERS: PCP Internal Medicine; Visit Provider Physician Assistant
DX: M17.11 Unilateral primary osteoarthritis, right knee (principal)
CPT/HCPCS: 99024

== ENCOUNTER → 2024-03-28 09:25 | Outpatient (BNV) | payer MEDICARE, SELFPAY | PROVIDERS: Visit Provider Radiology Diagnostic Radiology | DX: M17.0 Bilateral primary osteoarthritis of knee (principal) | CPT/HCPCS: 73562 ==

== ENCOUNTER 2024-03-28 10:23 | Outpatient (REF) | payer OTHER, SELFPAY ==
--- NOTE | ~2024-03-28 | XR_ITS ---
EXAMINATION: XR KNEE, RIGHT CLINICAL INFORMATION: M25.569 - Pain in unspecified knee COMPARISON: October 06, 2023. TECHNIQUE: Three views of the right knee. FINDINGS: There is marginal osteophyte formation and the femoral condyles and tibial plateau. There is sclerosis of the articular surfaces of the femoral condyles and tibial plateau. There is joint space narrowing involving mostly the medial compartment. There is joint space narrowing at the right patellofemoral joint. There is a small to moderate amount of fluid in the right suprapatellar bursa. No acute cortical disruption or malalignment. No lytic or blastic lesions. 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 Bicompartmental osteoarthrosis involving mostly the medial compartment, left knee. Right Suprapatellar bursa joint effusion, small to moderate volume. Electronically signed by: Laz Garcia MD 03/28/2024 02:40 PM [facility]
--- OUTSIDE RECORDS SUMMARY | 2024-03-29 11:16 | XMS_ITS | Encounter Summary ---
Author Organization [facility] Address [address] [place] [address] Care Team Providers Care Orthodontic Band Maker Name Role Phone Darrel Tony MD Primary Care Provider +1 [phone] Reason for Visit * Reason Onset Date Comments Faxed Order 02/29/2024 [facility] Encounter Details Date Type Department Care Team (Late st Contact Info) Description 02/29/2024 Telephone [facility] [address] [place] [address] Darrel Tony MD [address] [place] [address] Faxed Order ([facility] ) Social History [...] 02/29/2024 10:32 AM EST Orders from [facility] placed in Darrel Tony MD bin. Please complete and fax back to [phone]. Thank you. documented in this encounter Plan of Treatment Upcoming Encounters Date Type Department Care Team (Late st Contact Info) Description 04/08/2024 11:10 AM EST Appointment Radiology Department - [address] [phone] 04/10/2024 9:30 AM EST Office Visit Endocrinology - [address] [phone] Trish Hyatt PA [address] [place] [address] 05/02/2024 2:00 PM EDT Office Visit Internal Medicine - [address] [phone] Darrel Tony MD [address] [place] [address] documented as of this encounter Visit Diagnoses Not on filedocumented in this encounter Care Teams Orthodontic Band Maker Relationship Specialty Start Date End Date Darrel Tony MD [address] [place] [address] PCP - General Internal Medicine 11/22/21 documented as of this encounter
--- OUTSIDE RECORDS SUMMARY | 2024-03-29 11:16 | XMS_ITS | Encounter Summary ---
Author Organization [facility] Address [address] [place] [address] Care Team Providers Care Strap Machine Operator Name Role Phone Darrel Tony MD Primary Care Provider +1 [phone] Encounter Details Date Type Department Care Team Description 01/10/2023 Refill Adult Medicine B - [place] [address] [place] [address] Suzanne Winston, DEWAXER [address] [place] [address] Social History Tobacco Use Types Packs/Day Years Used Date Smoking Tobacco: Every Day Cigarettes 0.5 24 Smokeless Tobacco: Never Alcohol Use Standard Drinks/Week Comments No 0 (1 standard drink = 0.6 oz pur e alcohol) Sex Assigned at Date Recorded Female 06/01/2020 9:48 AM E DT Job Start Date Occupation Industry Not on file Not on file Not on file documented as of this encounter Miscellaneous Notes * Telephone Encounter - Beba Gar M.A. - 01/11/2023 8:57 AM EST Last seen 09/21/22 Controlled substance contract and last issue date of medication reviewed. Patientis due for medication. Lab Results Component Value Date URBENZO NONE DETECTED 04/12/2022 UROPIATES POSITIVE 04/12/2022 UROXYCODONE POSITIVE 04/12/2022 URBARBITUATE NONE DETECTED 04/12/2022 PAINAMPHETAM NONE DETECTED 01/04/2021 PAINCOCAINE NONE DETECTED 01/04/2021 PAINCANNABIN NONE DETECTED 01/04/2021 12/12/2022 12/12/2022 2 Oxycodone Hcl (Ir) 10 Mg Tab 42 28 [facility] [id number] [facility] ([facility] 0/0 22.50 MME Medicaid [place] 12/01/2022 11/18/2022 2 Zolpidem Tartrate 10 Mg Tablet 28 28 [facility] [id number] [facility] (1855) 0/0 0.50 LME Medicaid [place] 11/20/2022 08/24/2022 2 Gabapentin 600 Mg Tablet 168 28 Ja [facility] [id number] [facility] (1855) 2/2 4.02 LME Medicaid [place] 11/10/2022 11/10/2022 2 Oxycodone Hcl (Ir) 10 Mg Tab 42 28 [facility] [id number] [facility] (4352) 0/0 22.50 M[place] 10/13/2022 08/24/2022 2 Gabapentin 600 Mg Tablet 168 28 [facility] [id number] [facility] (1855) 1/2 4.02 L[place] 10/13/2022 10/13/2022 2 Oxycodone Hcl (Ir) 10 Mg Tab 42 14 [facility] [id number] [facility] (4352) 0/0 45.00 M[place] 10/12/2022 10/12/2022 2 Zolpidem Tartrate 10 Mg Tablet 28 28 [facility] [id number] [facility] (1855) 0/0 0.50 L[place] 09/13/2022 09/13/2022 2 Oxycodone Hcl (Ir) 10 Mg Tab 42 28 [facility] [id number] [facility] (4352) 0/0 22.50 [place] 08/30/2022 08/29/2022 2 Zolpidem Tartrate 10 Mg Tablet 30 30 [facility] [id number] [facility] (1855) 0/0 0.50 L[place] 08/24/2022 08/24/2022 2 Gabapentin 600 Mg Tablet 168 28 Ja [facility] [id number] [facility] (1855) 0/2 4.02 LME Medicaid [place] 08/15/2022 08/15/2022 2 Oxycodone Hcl (Ir) 10 Mg Tab 42 28 [facility] [id number] [facility] (1855) 0/0 22.50 MME Medicaid [place] 07/29/2022 06/13/2022 2 Zolpidem Tartrate 10 Mg Tablet 28 28 [facility] [id number] [facility] (1854) 0/0 0.50 LME Medicaid [place] 07/29/2022 2022 2 Gabapentin 600 Mg Tablet 168 28 Ja [facility] [id number] [facility] (1854) 0/1 4.02 LME Medicaid [place] 07/15/2022 07/15/2022 2 Oxycodone Hcl (Ir) 10 Mg Tab 42 14 Ka [facility] [id number] [facility] (1854) 0/0 45.00 MME Medicaid [place] 06/24/2022 2022 1 Gabapentin 600 Mg Tablet 180 30 Ja [facility] [id number] [facility] (7608) 2/3 4.02 LME Medicaid [place] documented in this encounter Plan of Treatment Upcoming Encounters Date Type Specialty Care Team Description 10/17/2024 Clerical Coordinator Report Abstract, Provider documented as of this encounter Visit Diagnoses Diagnosis Encounter for long-term (current) use of medications- Primary Encounter for long-term (current) use of other medications Fibromyalgia Mylagia and myositis, unspecified Other chronic pain documented in this encounter Care Teams Strap Machine Operator Relationship Specialty Start Date End Date Darrel Tony MD [address] [place] [address] PCP - General Internal Medicine 11/22/21 documented as of this encounter
--- OUTSIDE RECORDS SUMMARY | 2024-03-29 11:16 | XMS_ITS | Encounter Summary ---
Author Organization [facility] Address [address] [place] [address] Care Team Providers Care Bee Rancher Name Role Phone Darrel Tony MD Primary Care Provider [phone] [phone] Encounter Details Date Type Department Care Team Description 08/16/2022 Pt. Non Urgent Medical Question Adult Medicine [address] [address] Darrel Tony MD [address] [place] [address] Social History Tobacco Use Types Packs/Day Years Used Date Smoking Tobacco: Every Day Cigarettes 0.5 24 Smokeless Tobacco: Never Alcohol Use Standard Drinks/Week Comments No 0 (1 standard drink = 0.6 oz pur e alcohol) Sex Assigned at Date Recorded Female 06/01/2020 9:48 AM E DT Job Start Date Occupation Industry Not on file Not on file Not on file COVID-19 Exposure Response Date Recorded In the last 10 days, have sha fuchs been in contact with someone who was confirmed or suspected to have Coronavirus/COVID-19? No / Unsure 08/18/2022 2:06 PM EDT documented as of this encounter Progress Notes * Darrel Tony MD - 08/16/2022 1:02 PM EDT Good, she most likely had gastritis. She should continue taking omeprazole. I am awaiting all her lab work to come back before make a next decision. documented in this encounter Miscellaneous Notes * Telephone Encounter - Sharon Javier M.A. - 08/16/2022 12:46 PM EDTFrom: Galina Doyle To: Trudy Tony Sent: 08/16/2022 12:46 PM EDT Subject: Omeprazole Since taking the Omeprazole my diarrhea has subsided along with stomach pains. Any suggestions/advice? Should I just put this on gastritis? Galina Doyle documented in this encounter Plan of Treatment Upcoming Encounters Date Type Specialty Care Team Description 10/17/2024 Md Senior Research Scientist Report Abstract, Provider documented as of this encounter Visit Diagnoses Not on filedocumented in this encounter Care Teams Bee Rancher Relationship Specialty Start Date End Date Darrel Tony MD [address] [place] [address] PCP - General Internal Medicine 11/22/21 documented as of this encounter
--- OUTSIDE RECORDS SUMMARY | 2024-03-29 11:16 | XMS_ITS | Encounter Summary ---
Author Organization [facility] Address [address] [place] [address] Care Team Providers Care Collective Bargaining Specialist Name Role Phone Darrel Tony MD Primary Care Provider [phone] [phone] Reason for Visit * Reason Comments E-prescribe Rx Request Encounter Details Date Type Department Care Team Description 01/12/2023 Refill Adult Medicine [address] [address] Darrel Tony MD [address] [place] [address] E-prescribe Rx Request Social History Tobacco Use Types Packs/Day Years [...] encounter Miscellaneous Notes * Telephone Encounter - Suzanne Winston NP - 01/12/2023 12:59 PM EST Rx sent, due for ov in february * Telephone Encounter - Mirtha Gilliland M.A. - 01/12/2023 12:51 PM EST Rivka 09/21/22 no pended Lab Results Component Value Date ?? NA 141 08/10/2022 ?? K 4.0 08/10/2022 ?? CO2 25 08/10/2022 ?? CL 107 08/10/2022 ?? BUN 14 08/10/2022 ?? CREAT 1.01 08/10/2022 ?? GLU 182 08/10/2022 ?? CA 9.3 08/10/2022 ?? GFR 66 08/10/2022 * Telephone Encounter - Babatunde Jacques - 01/12/2023 12:12 PM EST Patient would like script to be: E-PRESCRIBED/FAXED TO PHARMACY ?? WHEN WAS THE PATIENT'S LAST APPOINTMENT IN ADULT MEDICINE? 09/21/2022 ?? WHEN WAS THE LAST TIME THE PATIENT SAW THEIR PCP? 08/12/2022 ?? Does patient have an upcoming appointment? none ?? (THE MEDICATION REQUESTED IS ON THE MED LIST ABOVE) All of the medications requested were on the CURRENT MEDS list ?? Did you check the Pharmacy information above?: YES ?? Patient wants: 90 -day supply ?? Is this a mail order prescription request ? NO ?? If the refill is from a FAXED refill request what is the RX # listed on the fax? N/A ?? Patients current insurance carrier is: Payor: [facility] FFS / Plan: [facility] / Product Type: MEDICAID RISK ?? documented in this encounter Plan of Treatment Upcoming Encounters Date Type Specialty Care Team Description 10/17/2024 Job Coach/Job Developer Report Abstract, Provider documented as of this encounter Visit Diagnoses Not on filedocumented in this encounter Care Teams Collective Bargaining Specialist Relationship Specialty Start Date End Date Darrel Tony MD [address] [place] [address] PCP - General Internal Medicine 11/22/21 documented as of this encounter
--- OUTSIDE RECORDS SUMMARY | 2024-03-29 11:16 | XMS_ITS | Encounter Summary ---
Author Organization [facility] Address [address] [place] [address] Care Team Providers Care Senior Firewall Engineer Name Role Phone Darrel Tony MD Primary Care Provider [phone] [phone] Reason for Visit * Reason Onset Date Comments refill request 03/16/2023 Encounter Details Date Type Department Care Team Description 03/16/2023 Refill Adult Medicine B - [place] [address] [place] [address] Suzanne Winston, RADIOLOGY THERAPIST [address] [place] [address] refill request Social History Tobacco Use Types Packs/Day Years [...] encounter Miscellaneous Notes * Telephone Encounter - Marcie Davenport M.A. - 03/16/2023 3:58 PM EST Date of last office visit was 02/24/23. Pended appt for 03/17/23 Controlled substance contract and last issue date of medication reviewed. Patient is due for medication. Lab Results Component Value Date URBENZO NONE DETECTED 04/12/2022 UROPIATES POSITIVE 04/12/2022 UROXYCODONE POSITIVE 04/12/2022 URBARBITUATE NONE DETECTED 04/12/2022 PAINAMPHETAM NONE DETECTED 01/04/2021 PAINCOCAINE NONE DETECTED 01/04/2021 PAINCANNABIN NONE DETECTED 01/04/2021 02/19/2023 02/17/2023 2 Zolpidem Tartrate 10 Mg Tablet 30 30 [facility] [id number] [facility] (1855) 0/0 0.50 LME Medicare [place] 02/16/2023 02/13/2023 2 Oxycodone Hcl (Ir) 10 Mg Tab 42 28 [facility] [id number] [facility] (4352) 0/0 22.50 MME Medicare [place] 02/11/2023 01/13/2023 2 Gabapentin 600 Mg Tablet 168 28 [facility] [id number] [facility] (1855) 1/4 4.02 LME Medicare [place] 02/10/2023 02/10/2023 2 Oxycodone Hcl (Ir) 10 Mg Tab 10 7 [facility] [id number] [facility] (4352) 0/0 21.43 MME Medicare [place] 01/23/2023 01/12/2023 2 Zolpidem Tartrate 10 Mg Tablet 28 28 [facility] [id number] [facility] (1855) 0/0 0.50 LME Medicare [place] 01/23/2023 01/13/2023 2 Gabapentin 600 Mg Tablet 168 28 [facility] [id number] [facility] (1855) 0/4 4.02 LME Medicare [place] 01/11/2023 01/11/2023 2 Oxycodone Hcl (Ir) 10 Mg Tab 42 28 [facility] [id number] [facility] (4352) 0/0 22.50 MME Private Pay [place] 12/12/2022 12/12/2022 2 Oxycodone Hcl (Ir) 10 Mg Tab 42 28 [facility] [id number] [facility] (4352) 0/0 22.50 MME Medicaid [place] 12/01/2022 11/18/2022 2 Zolpidem Tartrate 10 Mg Tablet 28 28 [facility] [id number] [facility] (1855) 0/0 0.50 LME Medicaid [place] 11/20/2022 08/24/2022 2 Gabapentin 600 Mg Tablet 168 28 Ja [facility] [id number] [facility] (1855) 2/2 4.02 LME Medicaid [place] 11/10/2022 11/10/2022 2 Oxycodone Hcl (Ir) 10 Mg Tab 42 28 [facility] [id number] [facility] (4352) 0/0 22.50 MME Medicaid [place] 10/13/2022 08/24/2022 2 Gabapentin 600 Mg Tablet 168 28 Ja [facility] [id number] [facility] (1855) 1/2 4.02 LME Medicaid [place] 10/13/2022 10/13/2022 2 Oxycodone Hcl (Ir) 10 Mg Tab 42 14 [facility] [id number] [facility] (4352) 0/0 45.00 MME Medicaid [place] 10/12/2022 10/12/2022 2 Zolpidem Tartrate 10 Mg Tablet 28 28 [facility] [id number] [facility] (1855) 0/0 0.50 LME Medicaid [place] 09/13/2022 09/13/2022 2 Oxycodone Hcl (Ir) 10 Mg Tab 42 28 [facility] [id number] [facility] (4352) 0/0 documented in this encounter Plan of Treatment Upcoming Encounters Date Type Specialty Care Team Description 10/17/2024 Fur Tailor Report Abstract, Provider Scheduled Orders Name Type Priority Associated Diagnoses Orde r Schedule G DRUG SCREENING OPIATES 1 OR MORE Lab Routine Encounter for long-term (current) use of medications Expected: 03/16/2023, Expires: 03/15/2024 CHG DRUG SCREENING CANNABINOIDS NATURAL Lab Routine Encounter for long-term (current) use of medications Expected: 03/16/2023, Expires: 03/15/2024 CHG DRUG SCREENING COCAINE Lab Routine Encounter for long-term (current) use of medications Expected: 03/16/2023, Expires: 03/15/2024 CHG DRUG SCREEN QUANT AMPHETAMINES 3 OR 4 Lab Routine Encounter for long-term (current) use of medications Expected: 03/16/2023, Expires: 03/15/2024 CHG DRUG/SUBSTANCE DEFINITIVE QUAL/QUANT NOS 1-3 Lab Routine Encounter for long-term (current) use of medications Expected: 03/16/2023, Expires: 03/15/2024 CHG DRUG SCREENING BENZODIAZEPINES 1-12 Lab Routine Encounter for long-term (current) use of medications Expected: 03/16/2023, Expires: 03/15/2024 documented as of this encounter Results * (ABNORMAL) OXYCODONE, URINE (07/11/2023 1:47 PM EDT) URINE OXYCODONE POSITIVE( A) ND 07/11/2023 3:53 PM EDT [facility] Comment: Assay cutoff 100 ng/mL Semi-quantitative assay for screening purposes only. Unconfirmed screening result should not be used for non-medical purposes. *ALTERNATE METHOD CONFIRMATION DONE UPON REQUEST ONLY* 07/11/2023 1:47 PM EDT 07/11/2023 1:48 PM EDT Narrative [facility] - 07/11/2023 3:53 PM EDT Release to patient->Immediate Darrel Tony MD LAB [facility] * (ABNORMAL) DRUG OF ABUSE SCREEN (07/11/2023 1:47 PM EDT) BENZODIAZEPINE, URINE NONE DETECTED ND 07/11/2023 3:48 PM EDT [facility] Comment: Assay cutoff 200 ng/mL Semi-quantitative assay for screening purposes only. Unconfirmed screening result should not be used for non-medical purposes. *ALTERNATE METHOD CONFIRMATION DONE UPON REQUEST ONLY* OPIATES, URINE POSITIVE(A) ND 3:48 PM EDT [facility] Comment: Assay cutoff 300 ng/mL Semi-quantitative assay for screening purposes only. Unconfirmed screening result should not be used for non-medical purposes. *ALTERNATE METHOD CONFIRMATION DONE UPON REQUEST ONLY* BARBITURATES, URINE NONE DETECTED ND 07/11/2023 3:48 PM EDT [facility] Comment: Assay cutoff 200 ng/mL Semi-quantitative assay for screening purposes only. Unconfirmed screening result should not be used for non-medical purposes. *ALTERNATE METHOD CONFIRMATION DONE UPON REQUEST ONLY* PAIN AMPHETAMINES NONE DETECTED ND 07/11/2023 3:48 PM EDT [facility] Comment: Assay cutoff 1000 ng/mL Semi-quantitative assay for screening purposes only. Unconfirmed screening result should not be used for non-medical purposes. *POSITIVE RESULTS ARE AUTOMATICALLY SENT FOR ALTERNATE METHOD CONFIRMATION* PAIN COCAINE NONE DETECTED ND 07/11/2023 3:48 PM EDT [facility] [employer] Comment: Assay cutoff 300 ng/mL Semi-quantitative assay for screening purposes only. Unconfirmed screening result should not be used for non-medical purposes. *POSITIVE RESULTS ARE AUTOMATICALLY SENT FOR ALTERNATE METHOD CONFIRMATION* PAIN CANNABINOID NONE DETECTED ND 07/11/2023 3:48 PM EDT [facility] [employer] Comment: Assay cutoff 50 ng/mL Semi-quantitative assay for screening purposes only. Unconfirmed screening result should not be used for non-medical purposes. *POSITIVE RESULTS ARE AUTOMATICALLY SENT FOR ALTERNATE METHOD CONFIRMATION* 07/11/2023 1:47 PM EDT 07/11/2023 1:48 PM EDT Narrative [facility] - 07/11/2023 3:48 PM EDT Release to patient->Immediate Darrel Tony MD LAB [facility] documented in this encounter Visit Diagnoses Diagnosis Encounter for long-term (current) use of medications- Primary Encounter for long-term (current) use of other medications Fibromyalgia Mylagia and myositis, unspecified Other chronic pain Type 2 diabetes mellitus with diabetic nephropathy, with long-term current use of insulin (HCC) Encounter for long-term (current) use of medications Encounter for long-term (current) use of other medications Type 2 diabetes mellitus with microalbuminuria, with long-term current use of insulin (HCC) documented in this encounter Care Teams Senior Firewall Engineer Relationship Specialty Start Date End Date Darrel Tony MD [address] [place] [address] PCP - General Internal Medicine 11/22/21 documented as of this encounter
--- OUTSIDE RECORDS SUMMARY | 2024-03-29 11:16 | XMS_ITS | Encounter Summary ---
Author Organization [facility] Address [address] [place] [address] Care Team Providers Care Manager Women Name Role Phone Darrel Tony MD Primary Care Provider [phone] [phone] Encounter Details Date Type Department Care Team Description 09/12/2022 CGM Report Medical Records [address] [place] [address] Abstract, Provider Social History Tobacco Use Types Packs/Day Years [...] Recorded In the last 10 days, have yo u been in contact with someone who was confirmed or suspected to have Coronavirus/COVID-19? No / Unsure 09/09/2022 8:33 AM EDT documented as of this encounter Plan of Treatment Upcoming Encounters Date Type Specialty Care Team Description 10/17/2024 Interior Decorator Report Abstract, Provider documented as of this encounter Visit Diagnoses Not on filedocumented in this encounter Care Teams Manager Women Relationship Specialty Start Date End Date Darrel Tony MD [address] [place] [address] PCP - General Internal Medicine 11/22/21 documented as of this encounter
--- OUTSIDE RECORDS SUMMARY | 2024-03-29 11:16 | XMS_ITS | Encounter Summary ---
Author Organization [facility] Address [address] [place] [address] Care Team Providers Care Heel Cover Softener Name Role Phone Darrel Tony MD Primary Care Provider [phone] [phone] Reason for Visit * Reason Onset Date Comments refill request 09/11/2022 Encounter Details Date Type Department Care Team Description 09/11/2022 Refill Internal Medicine - [place] [address] [facility], [address] [place] [address] Darrel Tony MD [address] [place] [address] refill request Social History Tobacco Use Types Packs/Day Years Used Date Smoking Tobacco: Every Day Cigarettes 0.5 24 Smokeless Tobacco: Never Alcohol Use Standard Drinks/Week Comments No 0 (1 standard drink = 0.6 oz pur e alcohol) Sex Assigned at Date Recorded Female 06/01/2020 9:48 AM EDT Job Start Date Occupation Industry Not on file Not on file Not on file COVID-19 Exposure Response Date Recorded In the last 10 days, have yo u been in contact with someone who was confirmed or suspected to have Coronavirus/COVID-19? No / Unsure 09/09/2022 8:33 AM EDT documented as of this encounter Miscellaneous Notes * Telephone Encounter - Sharon Javier M.A. - 09/13/2022 9:52 AM EDT Date of last office visit was 08/12/22. Controlled substance contract and last issue date of medication reviewed. Patient is due for medication. Lab Results Component Value Date ?? URBENZO NONE DETECTED 04/12/2022 ?? UROPIATES POSITIVE 04/12/2022 ?? UROXYCODONE POSITIVE 04/12/2022 ?? URBARBITUATE NONE DETECTED 04/12/2022 ?? PAINAMPHETAM NONE DETECTED 01/04/2021 ?? PAINCOCAINE NONE DETECTED 01/04/2021 ?? PAINCANNABIN NONE DETECTED 01/04/2021 ?? 08/30/2022 08/29/2022 2 Zolpidem Tartrate 10 Mg Tablet 30 30 [facility] [place] [facility] [id number] [facility] (1855) 0/0 0.50 LME Medicaid [place] 08/24/2022 08/24/2022 2 Gabapentin 600 Mg Tablet [address] [facility] [place] [id number] [facility] (1855) 0/2 4.02 LME Medicaid [place] 08/15/2022 08/15/2022 2 Oxycodone Hcl (Ir) 10 Mg Tab 42 28 [facility] [id number] [facility] (1855) 0/0 22.50 MME Medicaid [place] 07/29/2022 2022 2 Gabapentin 600 Mg Tablet [address] [facility] [id number] [facility] (1855) 0/1 4.02 LME Medicaid [place] 07/29/2022 06/13/2022 2 Zolpidem Tartrate 10 Mg Tablet 28 28 [facility] [place] [facility] [id number] [facility] (1855) 0/0 0.50 LME Medicaid [place] 07/15/2022 07/15/2022 2 Oxycodone Hcl (Ir) 10 Mg Tab 42 14 Ka [facility] [id number] [facility] (1855) 0/0 45.00 MME Medicaid [place] 06/24/2022 2022 1 * Telephone Encounter - Gayle Gandara - 09/13/2022 9:36 AM EDT [facility] [email or web address] [facility] not [facility], asking if [facility] can be sent [facility] [address] (Listed below) * Telephone Encounter - Marcie Davenport Iza - 09/12/2022 9:18 AM EDT Date of last office visit was 08/12/22. Controlled substance contract and last issue date of medication reviewed. Patient is due for medication. Lab Results Component Value Date URBENZO NONE DETECTED 04/12/2022 UROPIATES POSITIVE 04/12/2022 UROXYCODONE POSITIVE 04/12/2022 URBARBITUATE NONE DETECTED 04/12/2022 PAINAMPHETAM NONE DETECTED 01/04/2021 PAINCOCAINE NONE DETECTED 01/04/2021 PAINCANNABIN NONE DETECTED 01/04/2021 08/30/2022 08/29/2022 2 Zolpidem Tartrate 10 Mg Tablet 30 30 [facility] [place] [facility] [id number] [facility] (1855) 0/0 0.50 LME Medicaid [place] 08/24/2022 08/24/2022 2 Gabapentin 600 Mg Tablet [address] [facility] [place] [id number] [facility] (1855) 0/2 4.02 LME Medicaid [place] 08/15/2022 08/15/2022 2 Oxycodone Hcl (Ir) 10 Mg Tab 42 28 [facility] [id number] [facility] (1855) 0/0 22.50 MME Medicaid [place] 07/29/2022 2022 2 Gabapentin 600 Mg Tablet [address] [facility] [id number] [facility] (1855) 0/1 4.02 LME Medicaid [place] 07/29/2022 06/13/2022 2 Zolpidem Tartrate 10 Mg Tablet 28 28 [facility] [place] [facility] [id number] [facility] (1855) 0/0 0.50 LME [place] 07/15/2022 07/15/2022 2 Oxycodone Hcl (Ir) 10 Mg Tab 42 14 [facility] [id number] [facility] (1855) 0/0 45.00 MME [place] 06/24/2022 2022 1 Gabapentin 600 Mg Tablet [address] [facility] [place] [id number] [facility] (2678) 2/3 4.02 LME [place] 06/22/2022 05/02/2022 1 Zolpidem Tartrate 10 Mg Tablet 30 30 [facility] [id number] [facility] (1855) 0/0 0.50 LME Medicaid [place] 06/13/2022 06/13/2022 1 Oxycodone Hcl (Ir) 5 Mg Tablet 84 28 [facility] [id number] [facility] (1855) 0/0 22.50 MME Medicaid [place] 05/23/2022 03/07/2022 1 Zolpidem Tartrate 10 Mg Tablet 30 30 [facility] [id number] [facility] (1855) 1/1 0.50 L[place] 05/21/2022 2022 1 Gabapentin 600 Mg Tablet 180 30 Ja [facility] [id number] [facility] (7608) 1/3 4.02 LME [place] 05/12/2022 05/12/2022 1 Oxycodone Hcl (Ir) 5 Mg Tablet 84 28 [facility] [id number] [facility] (1855) 0/0 22.50 MME [place] 04/25/2022 04/25/2022 1 Zolpidem Tartrate 10 Mg Tablet 30 30 [facility] [id number] [facility] (1855) 0/0 0.50 LME Medicaid [place] 2022 2022 1 Gabapentin 600 Mg Tablet 180 30 Ja [facility] [id number] [facility] (7608) 0/3 4.02 LM documented in this encounter Plan of Treatment Upcoming Encounters Date Type Specialty Care Team Description 10/17/2024 Project Financial Analyst Report Abstract, Provider documented as of this encounter Visit Diagnoses Not on filedocumented in this encounter Care Teams Heel Cover Softener Relationship Specialty Start Date End Date Darrel Tony MD [address] [place] [address] PCP - General Internal Medicine 11/22/21 documented as of this encounter
--- OUTSIDE RECORDS SUMMARY | 2024-03-29 11:16 | XMS_ITS | Encounter Summary ---
Author Organization [facility] Address [address] [place] [address] Care Team Providers Care Logistics/Shipper Name Role Phone Darrel Tony MD Primary Care Provider +1 -[phone] Encounter Details Date Type Department Care Team Description 11/09/2022 Old Medical Records Medical Records [address] [place] [address] Home Warner MD Social History Tobacco Use Types Packs/Day Years [...] on file documented as of this encounter Plan of Treatment Upcoming Encounters Date Type Specialty Care Team Description 10/17/2024 Oncology Coordinator Report Abstract, Provider documented as of this encounter Visit Diagnoses Not on filedocumented in this encounter Care Teams Logistics/Shipper Relationship Specialty Start Date End Date Darrel Tony MD [address] [place] [address] PCP - General Internal Medicine 11/22/21 documented as of this encounter
--- OUTSIDE RECORDS SUMMARY | 2024-03-29 11:16 | XMS_ITS | Encounter Summary ---
Author Organization [facility] Address [address] [place] [address] Care Team Providers Care Photographs Curator Name Role Phone Darrel Tony MD Primary Care Provider +1 -[phone] Encounter Details Date Type Department Care Team Description 02/21/2023 Pt. Non Urgent Medical Question Endocrinology - [address] [address] Trish Hyatt PA-C [address] [place] [address] Social History Tobacco Use Types Packs/Day Years [...] encounter Miscellaneous Notes * Telephone Encounter - Vivian Centeno M.A. - 02/21/2023 12:03 PM ESTFrom: Galina Doyle To: Alireza Hyatt Sent: 02/21/2023 11:44 AM EST Subject: Dexacom Alicea I think I left my meter at the last appointment, can you check please? Galina Doyle documented in this encounter Plan of Treatment Upcoming Encounters Date Type Specialty Care Team Description 10/17/2024 Manager Icu Report Abstract, Provider documented as of this encounter Visit Diagnoses Not on filedocumented in this encounter Care Teams Photographs Curator Relationship Specialty Start Date End Date Darrel Tony MD [address] [place] [address] PCP - General Internal Medicine 11/22/21 documented as of this encounter
--- OUTSIDE RECORDS SUMMARY | 2024-03-29 11:16 | XMS_ITS | Encounter Summary ---
Author Organization [facility] Address [address] [place] [address] Care Team Providers Care Master Ocean Name Role Phone Darrel Tony MD Primary Care Provider +1 -[phone] Encounter Details Date Type Department Care Team Description 08/30/2022 Orders Only Medical Records [address] [place] [address] Abstract, Provider Social History Tobacco Use Types [...] PM EDT documented as of this encounter Plan of Treatment Upcoming Encounters Date Type Specialty Care Team Description 10/17/2024 Clinical Trial Leader Report Abstract, Provider documented as of this encounter Procedures Procedure Name Priority Date/Time Associated Diagnosis Comments OUTSIDE CT Routine 08/11/2022 documented in this encounter Results * OUTSIDE CT (08/11/2022) Provider Abstract RADIOLOGY documented in this encounter Visit Diagnoses Not on filedocumented in this encounter Care Teams Master Ocean Relationship Specialty Start Date End Date Darrel Tony MD [address] [place] [address] PCP - General Internal Medicine 11/22/21 documented as of this encounter
--- OUTSIDE RECORDS SUMMARY | 2024-03-29 11:16 | XMS_ITS | Data Portability ---
Author Organization [facility] Address [address] [place] [phone] Care Team Providers Care Block Tester Name Role Phone [facility] Primary Care Provi nahum HIM CCA OTHER Assessment No assessment recorded. Plan of Treatment Reminders Order Date Submit Date Provider Last Modified By Organization Details Last Modified Time Details Appointments None recorded. Lab BMP, serum or plasma [address], [address] [place] [address], [phone], 5 13:22:39 rapid SARS CoV 2 Ag, QL IA, respiratory specimen [address], [address] [place] [address], [id number], 5 13:22:39 rapid flu (A+B) [address], [address] [place] [address], [id number], 5 13:22:39 Referral None recorded. Procedures None recorded. Surgeries None recorded. Imaging None recorded. Medication Orders ondansetron 4 mg disintegrat ing tablet 2024 025 [facility] #[id number], [address] [place], [address], 5 12:41:16 Patient TargetsNo targets recorded. Patient [...] Name and Address Organization Details Recorded Time 35162 trazodone medicatio n Not available Not available Not available 03/19/2024 09560 RxNorm Not Available [employer] - production 5 10:04:02 96088 tramadol medicatio n Not available Not available Not available 03/19/2024 21185 RxNorm Not Available [employer] - production 5 10:04:02 Medications Name Sig [...] Address Organization Details Last Updated DateTime 5 512164. 816 g 175.26 cm 97.9 [degF] 100 [...] SNOMED-CT Code Diagnosis ICD10 Code Diagnosis Note [id number] Sushma Sanchez MD Main - [address] [phone] 03/19/2024 12:19:53 03/19/2024 17:52:46 Nausea and vomiting [id number] R11.2 Evaluation in the field was performed by my nursing administrator colleague, as noted above, I provided real-time [...] course of cephalexin 1 wk ago. On nursing administrator eval VS wnl, exam unremarkab le. POC [...] Claros Member ID Guarantor Name 03/19/2024 1 [facility] - DOS ON OR AFTER 2022 - DUAL ELIGIBLE - PENITENTIARY OPTIONS AND ONE CARE (MEDICARE REPLACEMENT/ADV ANTAGE - HMO) Galina Doyle [id number] Galina Doyle Notes Date Note Type Note [...] Allergies Reviewed at 03/19/2024 - :04 Comments: Bin Worker verified the name//address and phone number. Pt [...] s/s and seek emergency treatment if needed Corset Fitter Organization Information for Abel Ron [employer] Legal Name: [facility] Transportation Address: [address] [place] [address], [place] [address], Tank Hoop Bender: Vito Gould MD CLIA No.: [id number] Corset Fitter POC Test Results from Raschilla, Abel - [...] .................... .................... .................... .................... .................... .................... . Corset Fitter Note From Aebl Ron: This 58-year-old female with a history [...] .................... .................... .................... .................... .................... .................... . [facility] [place] Consulted: Sushma Sanchez .................... .................... .................... .................... .................... .................... .................... . Disposition: Fulfilled Sushma Sanchez MD [address] [facility],[address], [place], [address], BENITA - [employer] ARROYO 03/19/2024 13:23:04 OBGyn Episode No OBEpisode recorded.
--- OUTSIDE RECORDS SUMMARY | 2024-03-29 11:16 | XMS_ITS | Encounter Summary ---
Author Organization [facility] Address [address] [place] [address] Care Team Providers Care Pharmacy Data Analyst Name Role Phone Colette Anderson MD Primary Care Provider U Darrel Castro MD Primary Care Provider +1 -[phone] Reason for Visit * Reason Onset Date Comments medication problems 11/26/2018 Encounter Details Date Type Department Care Team Description 11/26/2018 Telephone Rheumatology - [address] [address] Home Warner MD medication problems Social History Tobacco Use Types Packs/Day Years Used Date Smoking Tobacco: Some Days Cigarettes 0.5 24 Smokeless Tobacco: Never Comments:1 CIG DAILY Alcohol Use Standard Drinks/Week Comments No 0 (1 standard drink = 0.6 oz pur e alcohol) Sex Assigned at Date Recorded Female 06/01/2020 9:48 AM E DT Job Start Date Occupation Industry Not on file Not on file Not on file documented as of this encounter Miscellaneous Notes * Telephone Encounter - Home Warner MD - 11/28/2018 12:55 PM EDT We called the pharmacy. The patient has already picked up a 3-month supply of gabapentin. I would presume this request is for the next refill to be sent to a different pharmacy so I will send that [facility] pharmacy. Dr. Warner * Telephone Encounter - Carole Max - 11/26/2018 4:36 PM EDT Who is calling? A pharmacist: Pharmacy: [facility] Pharmacist Name: [facility] Pharmacy Name of the medication GABAPENTIN What is the specific problem or interaction? PHARMACY FAX STATING PT REQUESTING NEW RX TO BE SENT TO [address] [address] [phone] If the patient is having a problem with taking the med - how long has the problem been going on? N/A documented in this encounter Plan of Treatment Upcoming Encounters Date Type Specialty Care Team Description 10/17/2024 Housing Development Specialist Report Abstract, Provider documented as of this encounter Visit Diagnoses Diagnosis Fibromyalgia Mylagia and myositis, unspecified documented in this encounter Care Teams Pharmacy Data Analyst Relationship Specialty Start Date End Date Colette Anderson MD PCP - General Internal Medicine 02/26/1811/06 Darrel Tony MD [address] [place] [address] PCP - General Internal Medicine 11/22/21 documented as of this encounter
--- OUTSIDE RECORDS SUMMARY | 2024-03-29 11:16 | XMS_ITS | Encounter Summary ---
Author Organization [facility] Address [address] [place] [address] Care Team Providers Care Lettuce Trimmer Name Role Phone Darrel Tony MD Primary Care Provider +1 -[phone] Encounter Details Date Type Department Care Team Description 08/10/2022 Pt. Non Urgent Medical Question Adult Medicine - [address] [address] Darrel Tony MD [address] [place] [address] Social History Tobacco Use Types Packs/Day Years Used Date Smoking Tobacco: Some Days Cigarettes 0.5 24 Smokeless Tobacco: Never Alcohol [...] suspected to have Coronavirus/COVID-19? No / Unsure 08/12/2022 10:59 AM EDT documented as of this encounter Miscellaneous Notes * Telephone Encounter - Muriel Mcghee R.N. - 08/11/2022 7:34 AM EDTFrom: Galina Doyle To: Trudy Tony Sent: 08/10/2022 8:34 PM EDT Subject: ER misconduct Hi Dr Tony, I have been down here since 4pm, I told them there was an expect called in and showed them the paper you told me to give them. As of 830pm, no IV fluids, stomach pain has reached 10 and I've been to the bathroom (bowl movements) [address] scan, no pain meds nothing! Numerous people have come in this ER and have gotten called ahead of me. When I go to the window toinquire about my wait time and the severity of my pain, I was told there were 12 people in from of me. Nurse was very sarcastic and demeaning. This is the reason I just from and best the pain at homeand I didn't say anything to you about it because of this right here. I am in PAIN, and nobody cares to even give me an IV! When a Dr calls in an expect and stresses fluids for his patient, since when is the Dr orders ignored? I've called the wireless construction manager service, no response, what do I have to do ? documented in this encounter Plan of Treatment Upcoming Encounters Date Type Specialty Care Team Description 10/17/2024 Aquarist Report Abstract, Provider documented as of this encounter Visit Diagnoses Not on filedocumented in this encounter Care Teams Lettuce Trimmer Relationship Specialty Start Date End Date Darrel Tony MD [address] [place] [address] PCP - General Internal Medicine 11/22/21 documented as of this encounter
--- OUTSIDE RECORDS SUMMARY | 2024-03-29 11:16 | XMS_ITS | Encounter Summary ---
Author Organization [facility] Address [address] [place] [address] Care Team Providers Care Lip Cutter And Scorer Name Role Phone Darrel Tony MD Primary Care Provider +1 -[phone] Encounter Details Date Type Department Care Team Description 02/22/2023 Orders Only Medical Records [address] [place] [address] Rufus Bernard MD [address] [place] [address] Social History Tobacco Use Types Packs/Day Years [...] as of this encounter Progress Notes * Macario Bernard MD - 03/13/2023 6:19 PM EST Dear Ms. Doyle, The biopsies of your stomach are within normal limits. Please follow up in order to discuss these findings with the referring physician at [facility] gastroenterology clinic. I would like to personally thank you for allowing us to take care of you. Please don't hesitate to call us for any questions or concerns. Regards, Gagandeep Bernard MD Board Certified Gastroenterology and Internal Medicine Transplant Hepatology [facility] documented in this encounter Plan of Treatment Upcoming Encounters Date Type Specialty Care Team Description 10/17/2024 Continuous Improvement Black Belt Report Abstract, Provider documented as of this encounter Procedures Procedure Name Priority Date/Time Associated Diagnosis Comments OUTSIDE PATHOLOGY Routine 02/20/2023 documented in this encounter Results * OUTSIDE PATHOLOGY (02/20/2023) H Ronnell Bernard MD OUTSIDE LAB documented in this encounter Visit Diagnoses Not on filedocumented in this encounter Care Teams Lip Cutter And Scorer Relationship Specialty Start Date End Date Darrel Tony MD [address] [place] [address] PCP - General Internal Medicine 11/22/21 documented as of this encounter
--- OUTSIDE RECORDS SUMMARY | 2024-03-29 11:16 | XMS_ITS | Encounter Summary ---
Author Organization [facility] Address [address] [place] [address] Care Team Providers Care Box Worker Name Role Phone Darrel Tony MD Primary Care Provider +1 -[phone] Reason for Visit * Reason Onset Date Comments Medication 12/01/2022 Encounter Details Date Type Department Care Team Description 12/01/2022 Refill Gastroenterology [address] [place] [phone] Rufus Bernard MD [address] [place] [address] Medication Social History Tobacco Use Types Packs/Day Years [...] Date Type Specialty Care Team Description 10/17/2024 Child Care Lead Teacher Report Abstract, Provider documented as of this encounter Visit Diagnoses Not on filedocumented in this encounter Care Teams Box Worker Relationship Specialty Start Date End Date Darrel Tony MD [address] [place] [address] PCP - General Internal Medicine 11/22/21 documented as of this encounter
--- OUTSIDE RECORDS SUMMARY | 2024-03-29 11:16 | XMS_ITS | Encounter Summary ---
Author Organization [facility] Address [address] [place] [address] Care Team Providers Care Dredge Hand Name Role Phone Darrel Tony MD Primary Care Provider +1 -[phone] Encounter Details Date Type Department Care Team Description 01/31/2023 Orders Only Medical Records [address] [place] [address] Cade Seals MD Social History Tobacco Use Types Packs/Day [...] Date Type Specialty Care Team Description 10/17/2024 Data Entry Coordinator Report Abstract, Provider documented as of this encounter Procedures Procedure Name Priority Date/Time Associated Diagnosis Comments OUTSIDE CT Routine 01/29/2023 OUTSIDE PLAIN FILM Routine 01/29/2023 documented in this encounter Results * OUTSIDE PLAIN FILM (01/29/2023) [facility] RADIOLOGY * OUTSIDE CT (01/29/2023) Cade Seals MD RADIOLOGY documented in this encounter Visit Diagnoses Not on filedocumented in this encounter Care Teams Dredge Hand Relationship Specialty Start Date End Date Darrel Tony MD [address] [place] [address] PCP - General Internal Medicine 11/22/21 documented as of this encounter
--- OUTSIDE RECORDS SUMMARY | 2024-03-29 11:16 | XMS_ITS | Encounter Summary ---
Author Organization [facility] Address [address] [place] [address] Care Team Providers Care Entry Level Java Developer Name Role Phone Colette Anderson MD Primary Care Provider U Darrel Castro MD Primary Care Provider +1 -[phone] Reason for Visit * Reason Onset Date Comments Provider Call Back 05/29/2018 Encounter Details Date Type Department Care Team Description 05/29/2018 Telephone Adult Medicine B - [address] [address] Trish Hyatt PA-C [address] [place] [address] Provider Call Back Social History Tobacco Use Types Packs/Day Years Used Date Smoking Tobacco: Former Cigarettes 0.5 24 Smokeless Tobacco: Never Comments:10 CIG DAILY Alcohol Use Standard Drinks/Week Comments No 0 (1 standard drink = 0.6 oz pur e alcohol) Sex Assigned at Date Recorded Female 06/01/2020 9:48 AM E DT Job Start Date Occupation Industry Not on file Not on file Not on file documented as of this encounter Miscellaneous Notes * Telephone Encounter - Klaudia Bhakta - 05/29/2018 4:29 PM EDT Caller requesting call back from provider: Is the caller the patient? NO If caller is not the patient, what is the callers name? Dr[facility] Callers relationship to patient? Office If person calling is not the patient themselves, is there a verbal release in FYI or permanent comments for this person: YES Reason for call back: Dr. Johnson[facility] called requesting office notes for Pt which was seen on 05/01/18. Faxed to [phone] Caller offered to speak with the nurse for assistance: YES Response: Patient offered to speak with nurse for assistance and patient agreed. Message forwarded to nurse. documented in this encounter Plan of Treatment Upcoming Encounters Date Type Specialty Care Team Description 10/17/2024 Trimmer Meat Report Abstract, Provider documented as of this encounter Visit Diagnoses Not on filedocumented in this encounter Care Teams Entry Level Java Developer Relationship Specialty Start Date End Date Colette Anderson MD PCP - General Internal Medicine 02/26/1811/06 Darrel Tony MD [address] [place] [address] PCP - General Internal Medicine 11/22/21 documented as of this encounter
--- OUTSIDE RECORDS SUMMARY | 2024-03-29 11:16 | XMS_ITS | Encounter Summary ---
Author Organization [facility] Address [address] [place] [address] Care Team Providers Care Cancellation Clerk Name Role Phone Darrel Tony MD Primary Care Provider +1 -[phone] Encounter Details Date Type Department Care Team Description 08/27/2022 CGM Report Medical Records [address] [place] [address] Abstract, Provider Social History Tobacco Use Types [...] Date Type Specialty Care Team Description 10/17/2024 Program Manager Environmental Planning Report Abstract, Provider documented as of this encounter Visit Diagnoses Not on filedocumented in this encounter Care Teams Cancellation Clerk Relationship Specialty Start Date End Date Darrel Tony MD [address] [place] [address] PCP - General Internal Medicine 11/22/21 documented as of this encounter
--- OUTSIDE RECORDS SUMMARY | 2024-03-29 11:16 | XMS_ITS | Encounter Summary ---
Author Organization [facility] Address [address] [place] [address] Care Team Providers Care Clinical Research Director Name Role Phone Darrel Tony MD Primary Care Provider +1 -[phone] Encounter Details Date Type Department Care Team Description 02/20/2023 Hospital Medical Records [address] [place] [address] Rufus Bernard MD [address] [place] [address] Social History Tobacco Use Types Packs/Day Years [...] Date Type Specialty Care Team Description 10/17/2024 Logging Worker Report Abstract, Provider documented as of this encounter Visit Diagnoses Not on filedocumented in this encounter Care Teams Clinical Research Director Relationship Specialty Start Date End Date Darrel Tony MD [address] [place] [id number] PCP - General Internal Medicine 11/22/21 documented as of this encounter
--- OUTSIDE RECORDS SUMMARY | 2024-03-29 11:16 | XMS_ITS | Encounter Summary ---
Author Organization [facility] Address [address] [place] [address] Care Team Providers Care House Rn Name Role Phone Darrel Tony MD Primary Care Provider +1 -[phone] Reason for Visit * Reason Onset Date Comments Medication 09/26/2022 Encounter Details Date Type Department Care Team Description 09/26/2022 Refill Gastroenterology [address] [place] [phone] Rufus Bernard MD [address] [place] [address] Medication Social History Tobacco Use Types Packs/Day [...] suspected to have Coronavirus/COVID-19? No / Unsure 09/21/2022 9:50 AM EDT documented as of this encounter Plan of Treatment Upcoming Encounters Date Type Specialty Care Team Description 10/17/2024 Sdet Report Abstract, Provider documented as of this encounter Visit Diagnoses Not on filedocumented in this encounter Care Teams House Rn Relationship Specialty Start Date End Date Darrel Tony MD [address] [place] [address] [place] [address] PCP - General Internal Medicine 11/22/21 documented as of this encounter
--- OUTSIDE RECORDS SUMMARY | 2024-03-29 11:16 | XMS_ITS | Encounter Summary ---
Author Organization [facility] Address [address] [place] [address] Care Team Providers Care Dryer Operator Name Role Phone Darrel Tony MD Primary Care Provider +1 -[phone] Encounter Details Date Type Department Care Team Description 08/10/2022 Pt. Non Urgent Medical Question Adult Medicine - [address] [address] Darrel Tony MD [address] [place] [address] Social History Tobacco Use Types Packs/Day Years [...] Encounter - Muriel Mcghee R.N. - 08/11/2022 7:36 AM EDTFrom: Galina Doyle To: Trudy Tony Sent: 08/10/2022 10:11 PM EDT Subject: ER It is now 10:09 I am going home, I am in excruciating pain! Please call and advise in the morning. Galina Doyle documented in this encounter Plan of Treatment Upcoming Encounters Date Type Specialty Care Team Description 10/17/2024 Quarry Extraction Worker Report Abstract, Provider documented as of this encounter Visit Diagnoses Not on filedocumented in this encounter Care Teams Dryer Operator Relationship Specialty Start Date End Date Darrel Tony MD [address] [place] [address] PCP - General Internal Medicine 11/22/21 documented as of this encounter
--- OUTSIDE RECORDS SUMMARY | 2024-03-29 11:16 | XMS_ITS | Encounter Summary ---
Author Organization [facility] Address [address] [place] [address] Care Team Providers Care Client Services Assistant Name Role Phone Darrel Tony MD Primary Care Provider +1 -[phone] Reason for Visit * Reason Onset Date Comments Orders Call 01/26/2023 Lmtcb on , ple ase transfer call to ext: [phone] Encounter Details Date Type Department Care Team Description 01/26/2023 Telephone Adult Medicine [address] [address] Andres Gunn NP [address] [place] [address] Orders Call (Lmtcb on , please transfer call to ext: [phone] ) Social History Tobacco Use Types Packs/Day [...] Date Type Specialty Care Team Description 10/17/2024 Bridges Supervisor Report Abstract, Provider documented as of this encounter Visit Diagnoses Not on filedocumented in this encounter Care Teams Client Services Assistant Relationship Specialty Start Date End Date Darrel Tony MD [address] [place] [address] PCP - General Internal Medicine 11/22/21 documented as of this encounter
--- OUTSIDE RECORDS SUMMARY | 2024-03-29 11:17 | XMS_ITS | Encounter Summary ---
Author Organization [facility] Address [address] [place] [address] Care Team Providers Care Metal Roofing Mechanic Name Role Phone Xenia Morfin MD Primary Care Provider Manoj Casas MD Primary Care Provider Un available Darrel Tony MD Primary Care Provider [phone] [phone] [facility], [facility] Primary Care Provider Stefan Regalado Primary Care Provider Unav ailable Colette Anderson MD Primary Care Provider U navailDarrel Dugan MD Primary Care Provider [phone] [phone] Reason for Visit * Reason Onset Date Comments Appointment-Self Referral 06/24/2015 Encounter Details Date Type Department Care Team Description 06/24/2015 Telephone [facility] [address] [place] [address] Charley Dias OD Appointment-Self Referral Social History Tobacco Use Types Packs/Day Years [...] encounter Miscellaneous Notes * Telephone Encounter - Sonal Cuevas M.A. - 06/24/2015 1:32 PM EDT LM to pt to call the office appt with Dr Lopez for 07/23/2015 at 03:00pm [place] [facility]. documented in this encounter Plan of Treatment Upcoming Encounters Date Type Specialty Care Team Description 10/17/2024 Presidential Helicopter Crew Chief Report Abstract, Provider documented as of this encounter Visit Diagnoses Not on filedocumented in this encounter Care Teams Metal Roofing Mechanic Relationship Specialty Start Date End Date Xenia Morfin MD PCP - General Internal Medicine 11/20/14 09/01/15 Manoj Ragland MD PCP - General Internal Medicine 09/02/15 Darrel Tony MD [address] [place] [address] PCP - General Internal Medicine 02/18/16 07/05/16 [facility], [facility] [address] [place] [address] PCP - General Internal Medicine 07/06/16 11/13/17 Stefan Johnson [address] [place] [address] PCP - General Internal Medicine 11/14/17 02/25/18 Colette Anderson MD [address] [place] [address] PCP - General Internal Medicine 02/26/18 11/21/21 Darrel Tony MD [address] [place] [address] PCP - General Internal Medicine 11/22/21 documented as of this encounter
--- OUTSIDE RECORDS SUMMARY | 2024-03-29 11:17 | XMS_ITS | Encounter Summary ---
Author Organization [facility] Address [address] [place] [address] Care Team Providers Care Vp Of Digital Marketing Name Role Phone Darrel Tony MD Primary Care Provider [phone] [phone] Encounter Details Date Type Department Care Team Description 06/05/2023 Orders Only Medical Records [address] [place] [address] Abstract, Provider Social History Tobacco Use Types [...] Date Type Specialty Care Team Description 10/17/2024 Roll Tension Tester Report Abstract, Provider documented as of this encounter Procedures Procedure Name Priority Date/Time Associated Diagnosis Comments HEMOGLOBIN A1C Routine 05/04/2023 documented in this encounter Results * HEMOGLOBIN A1C (05/04/2023) Provider Abstract LAB documented in this encounter Visit Diagnoses Not on filedocumented in this encounter Care Teams Vp Of Digital Marketing Relationship Specialty Start Date End Date Darrel Tony MD [address] [place] [address] PCP - General Internal Medicine 11/22/21 documented as of this encounter
--- OUTSIDE RECORDS SUMMARY | 2024-03-29 11:17 | XMS_ITS | Clinical Summary ---
Author Organization [facility] [address] [facility] Building Address [address] [facility] [place] [address] Phone Care Team Providers Care Filling Carrier Name Role Phone Darrel Tony MD Primary Care Provider [phone] [phone] Allergies Active Allergy Reactions Criticality Noted Date [...] 03/27/2024 Telephone Internal [facility] [place] [address] [facility] [place] [phone] Darrel Tony MD Faxed Order ([facility] ) 03/26/2024 Telephone Internal Medicine - [place] [address] [place], [place] [address] [place] [phone] Darrel Tony MD faxed order 03/19/2024 Telephone Internal Medicine - [facility] [address] [place], [place] [address]ial [facility] [place] [phone] Darrel Tony MD Chest Pain; GI Problem 02/29/2024 Telephone Internal Medicine - [place] [address] [facility] [place], [place] [phone] Darrel Tony MD [facility] 02/05/2024 Telephone Internal Medicine - [place] [address] [facility] [place], [place] [phone] Mariia Sandhu MA 01/29/2024 10:00 AM EST Consult [facility] - [facility] [address] [place], [place] [address] [place] [phone] Darrel Tony MD Preop examination 01/10/2024 1:00 PM EST Office Visit Orthopedic Surgery - [place] [address] [phone] John Garvin DPM Controlled type 2 diabetes with neuropathy ([facility]) (Primary Dx); Hammertoes of both feet; [...] CHOLECYSTECTOMY 1998 PROCEDURE: LAPAROSCOPY, CHOLECYSTECTOMY SECTION PROCEDURE: RI DELIVERY ONLY; COMMENT: X4 TUBAL LIGATION PROCEDURE: HISTORICAL TUBAL LIGATION CHOLECYSTECTOMY PROCEDURE: RI LAPAROSCOPY SURG CHOLECYSTECTOMY Medical History Medical History Date Comments Other pulmonary embolism and infarction 1998 DX:Other pulmonary embolism and infarction 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; COMMENT: scalp, arms; + biopsy 11/2005 Systemic lupus erythematosus ([facility]) 09/01/2006 DX:Systemic lupus erythemato espinoza ([facility]); COMMENT: DISCOID LESIONS, SUB-ACUTE SKIN LESIONS ARTHRALGIAS, MILD PROTEINURIA + Anti-DNA, Anti-WIRE WALKER, Anti-Sm, SS-A Esophageal reflux DX:Esophageal reflux Essential hypertension, benign 05/30/2005 D X:Essential hypertension, benign Obesity DX:Obesity 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 D X: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 Type 2 diabetes mellitus ([facility]) 03/01/2018 DX:Type 2 diabetes mellitus ([facility]) Vitamin D deficiency 11/14/2019 DX:Vitamin D [...] 11:10 AM EST Appointment Radiology Department - [address] [phone] 04/10/2024 9:30 AM EST Office Visit Endocrinology - [address] [phone] Trish Hyatt PA [address] [place] [address] 05/02/2024 2:00 PM EDT Office Visit Internal Medicine - [facility] [address] [facility] [place] [phone] Darrel Tony MD [address] [facility] [place] [address] Health Maintenance Due Date Last Done Comments [...] RESULTING AGENCY - 05/08/2023 2:56 PM EDT [id number] THINPREP PAP, IMAGED: NEGATIVE FOR SQUAMOUS INTRAEPITHELIAL [...] ANY DIAGNOSIS. MENOPAUSE, Z12.4 us Jackeline Novoa [facility] LAB CYTOLOGY ORDERABLES Jadyn whitfield Result HISTORICAL [...] Most Recently Relevant to Health Maintenance Insurance [facility] MEDICARE Member Subscriber Plan / Payer (Ef fective 2023-Present) Name:Galina Doyle Relation to Subscriber:Self Name:Galina Doyle Payer ID:[id number] Group ID:[id number] Type:Not on file Address: [place] [address] [address] [id number] Care Teams Filling Carrier Relationship Specialty Start Date End Date Darrel Tony MD [address] [place] [address] PCP - General Internal Medicine 11/22/21
--- OUTSIDE RECORDS SUMMARY | 2024-03-29 11:17 | XMS_ITS | Encounter Summary ---
Author Organization [facility] Address [address] [place] [address] Care Team Providers Care Collar Fuser Name Role Phone Manoj Ragland MD Primary Care Provider Un available Darrel Tony MD Primary Care Provider [phone] [phone] [facility], Pcp Primary Care Provider Stefan Regalado Primary Care Provider Unav Colette Marie MD Primary Care Provider U Darrel Castro MD Primary Care Provider [phone] [phone] Reason for Referral * EXTERNAL (Routine) - Authorized/Booked Specialty Diagnoses / Procedures Referred By Cathryn goodson Referred To Contact MANAGER MOLECULAR / Genetics Diagnoses Family history of breast cancer Procedures REFERRAL TO EXTERNAL ADULT GENETIC COUNSELING-EXTERNAL Juliet Garcia PA-C [address] [place] [address] Thuy Mojica MD [address] [address] Referral ID Status Reason Start Date Expiration Date V isits Requested Visits Authorized SEE NOTE Authorized/B ooked 09/07/2015 12/08/2015 1 1 Reason for Visit * Reason Onset Date Comments REFERRAL 09/07/2015 Encounter Details Date Type Department Care Team Description 09/07/2015 Telephone Genetic & Disease Counseling - [place] [address] [place] [address] Juliet Garcia PA-C REFERRAL Social History Tobacco Use Types Packs/Day Years [...] Miscellaneous Notes * Telephone Encounter - Vivian Alba - 09/07/2015 12:09 PM EDT Please sign this pended external order for genetic counseling to [facility].Pt has [place] and cannot make an genetic counseling visits at [place] due to work and doesn't drive. I am removing this pt's order from the genetic testing schedule. Order expires 09/02/16,[place]. documented in this encounter Plan of Treatment Upcoming Encounters Date Type Specialty Care Team Description 10/17/2024 Vp Of Marketing Report Abstract, Provider documented as of this encounter Visit Diagnoses Diagnosis Family history of breast cancer- Primary Family history of malignant neoplasm of breast documented in this encounter Care Teams Collar Fuser Relationship Specialty Start Date End Date Manoj Ragland MD PCP - General Internal Medicine 09/02/15 Darrel Tony MD [address] [place] [address] PCP - General Internal Medicine 02/18/16 07/05/16 [facility], Pcp [address] [place] [address] PCP - General Internal Medicine 07/06/16 11/13/17 Stefan Johnson [address] [place] [address] PCP - General Internal Medicine 11/14/17 02/25/18 Colette Anderson MD [address] [place] [address] PCP - General Internal Medicine 02/26/18 11/21/21 Darrel Tony MD [address] [place] [address] PCP - General Internal Medicine 11/22/21 documented as of this encounter
--- OUTSIDE RECORDS SUMMARY | 2024-03-29 11:17 | XMS_ITS | Encounter Summary ---
Author Organization [facility] Address [address] [place] [address] Care Team Providers Care Child Support Agent Name Role Phone Colette Anderson MD Primary Care Provider U Darrel Castro MD Primary Care Provider [phone] [phone] Encounter Details Date Type Department Care Team Description 11/23/2020 Pt. Non Urgent Medical Question Rheumatology - [address] [address] Hany Garcia PA Social History Tobacco Use Types Packs/Day Years [...] Exposure Response Date Recorded In the last month, have you been in contact with someone who was confirmed or suspected to have Coronavirus / COVID-19? No / Unsure 11/25/2020 8:42 AM EDT documented as of this encounter Plan of Treatment Upcoming Encounters Date Type Specialty Care Team Description 10/17/2024 Steel Pourer Helper Report Abstract, Provider documented as of this encounter Visit Diagnoses Not on filedocumented in this encounter Care Teams Child Support Agent Relationship Specialty Start Date End Date Colette Anderson MD PCP - General Internal Medicine 02/26/1811/06 Darrel Tony MD [address] [place] [address] PCP - General Internal Medicine 11/22/21 documented as of this encounter
--- OUTSIDE RECORDS SUMMARY | 2024-03-29 11:17 | XMS_ITS | Encounter Summary ---
Author Organization [facility] Address [address] [place] [address] Care Team Providers Care Network Operations Specialist Name Role Phone Darrel Tony MD Primary Care Provider [phone] [phone] Encounter Details Date Type Department Care Team Description 07/05/2023 Orders Only Medical Records [address] [place] [address] [facility] Social History Tobacco Use Types Packs/Day Years [...] Date Type Specialty Care Team Description 10/17/2024 Sales And Service Technician Report Abstract, Provider documented as of this encounter Procedures Procedure Name Priority Date/Time Associated Diagnosis Comments OUTSIDE EYE EXAM Routine 06/26/2023 documented in this encounter Results * OUTSIDE EYE EXAM (06/26/2023) [facility] PROCEDURES documented in this encounter Visit Diagnoses Not on filedocumented in this encounter Care Teams Network Operations Specialist Relationship Specialty Start Date End Date Darrel Tony MD [address] [place] [address] PCP - General Internal Medicine 11/22/21 documented as of this encounter
--- OUTSIDE RECORDS SUMMARY | 2024-03-29 11:17 | XMS_ITS | Clinical Summary ---
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 180 Tab 3 10/23/2019 Active clonidine (CATAPRES) 0.2 MG tablet Take 1 Tablet by mouth 2 times daily as needed for Other (Panic attacks). 60 Tablet 0 11/19/2021 Active OneTouch Delica Lancets 30G Misc 1 Stick by Does not apply route 3 times daily. 100 Each 5 05/12/2022 Active ONE TOUCH BASIC STRIPS 1 Strip by Does not apply route 3 times daily. 100 Strip 5 05/12/2022 Active Blood Glucose Monitoring Suppl (ONE TOUCH ULTRA 2) w/Device Kit Use to check BS 3 times a day 1 Kit 0 05/12/2022 Active gabapentin (NEURONTIN) 600 MG tablet Take 2 Tablets by mouth 2 Times Daily. 0 07/29/2022 Active quetiapine (SEROQUEL) 50 MG tablet Take 1 Tablet by mouth at bedtime. 0 07/29/2022 Active triamcinolone (KENALOG) 0.1 % ointment APPLY TO AFFECTED AREA 2 TIMES DAILY FOR UP TO TWO WEEKS 60 g 1 10/14/2022 Active Continuous Blood Gluc Transmit (Dexcom G6 Transmitter) MiscIndications:Typ e 2 diabetes mellitus with microalbuminuria, with long-term current use of insulin ([facility]) I transmitter every 3 months 1 Each 3 03/31/2023 Active Continuous Blood Gluc Sensor (Dexcom G6 Sensor) MiscIndications:Typ e 2 diabetes mellitus with microalbuminuria, with long-term current use of insulin ([facility]) 1 sensor every 10 days 9 Each 3 03/31/2023 Active Diclofenac Sodium 1 % Gel Apply 4 g topically 2 times daily as needed (Thigh pain). 100 g 0 04/19/2023 Active nystatin (MYCOSTATIN) powder Apply to area of concern 2-3 times per day whenever rash is present. 15 g 3 05/03/2023 Active Incontinence Supply Disposable (Poise Ultimate Absorbency) PadsIndications:Urg e incontinence of urine 1 Each by Does not apply route every 2 hours as needed (incontinence). 360 Each 11 05/08/2023 Active hydrochlorothiazide (HYDRODIURIL) 50 MG tabletIndications:E ssential hypertension, benign Take 1 Tablet by mouth daily. 90 Tablet 1 06/13/2023 Active Glucagon (Gvoke HypoPen 2-Pack) 1 MG/0.2ML Solution Auto-injector Inject 1 Device into the skin as needed for Other (low blood sugar). 0.2 mL 3 07/05/2023 Active Insulin Aspart (NovoLOG FlexPen) 100 UNIT/ML Solution Pen-injectorIndicat ions:Type 2 diabetes mellitus with microalbuminuria, with long-term current use of insulin ([facility]) Inject 2-10 Units into the skin 3 times daily (before meals). Inject three times a day with meals per scale IB BS 100-150: 7 units; 151-200: 8 unit; 201-250: 9 units; 251-300: 10 units; 301-350: 11 units; 351-400: 12 units - Subcutaneous, Plus 2 units for a high carb meals 30 mL 5 07/05/2023 Active Insulin Glargine (Lantus SoloStar) 100 UNIT/ML Solution Pen-injectorIndicat ions:Type 2 diabetes mellitus with microalbuminuria, with long-term current use of insulin (HCC) INJECT 65 UNITS INTO THE SKIN AT BEDTIME OR DIRECTED 60 mL 3 07/05/2023 Active amlodipine (NORVASC) 2.5 MG tablet Take 1 Tablet by mouth daily. With the 5 mg daily for a total of 7.5 mg 90 Tablet 1 09/22/2023 Active amlodipine (NORVASC) 5 MG tabletIndications:E ssential hypertension, benign Take 1 Tablet by mouth daily. With the 2.5 mg daily for a total of 7.5 mg 90 Tablet 1 09/22/2023 Active Na Sulfate-K Sulfate-Mg Sulf (Suprep Bowel Prep Kit) 17.5-3.13-1.6 GM/177ML Solution Take 177 mL by mouth See Admin Instructions for 2 doses. 254 mL 0 09/28/2023 Active fluconazole (Diflucan) 150 MG tablet Take 1 tab by mouth now. May repeat in 72 hours if still symptomatic. 2 Tablet 0 10/16/2023 Active lisinopril (PRINIVIL,ZESTRIL) 20 MG tabletIndications:E ssential hypertension, benign TAKE 1 TABLET BY MOUTH EVERY DAY 90 Tablet 1 10/31/2023 Active metformin (GLUCOPHAGE) 1000 MG tablet TAKE 1 TABLET BY MOUTH TWICE A DAY WITH FOOD 60 Tablet 5 11/01/2023 Active oxyCODONE HCl 10 MG TabIndications:Fibr omyalgia,Other chronic pain Take 0.5 Tablets by mouth every 8 hours as needed for Other (pain) for up to 28 days. 42 Tablet 0 12/08/2023 Active Cholecalciferol (Vitamin D) 50 MCG (2000 UT) TabIndications:Lidya min D deficiency Take 1 Tablet by mouth daily for 180 days. 90 Tablet 0 09/04/2023 5 Active Problems Problem Noted Date History of pulmonary embolism 06/28/2023 Primary osteoarthritis of right knee Tobacco use 06/28/2023 Pancreatitis 08/01/2022 Other chronic pain 10/30/2020 Diabetic polyneuropathy associated with type 2 diabetes mellitus 04/09/2020 History of 2019 novel coronavirus diseas e (COVID-19) 01/22/2020 Overview: Early January 2020 Vitamin D deficiency 11/14/2019 Lupus anticoagulant positive 05/02/2019 Overview: Pulmonary embolus in 1999 No AC since 03/2019 - Pos lupus AC. 09/2019:positive anti cardiolipin AB, anti-beta 2 GP: Adrenal adenoma, left 05/01/2018 Type 2 diabetes mellitus wit h microalbuminuria, with long-term current use of insulin 05/01/2018 Microalbuminuria 05/01/2018 Type 2 diabetes mellitus, with long-term current use of insulin 03/01/2018 Carpal tunnel syndrome, bilateral 2015 Overview: EMG July 2015: moderate to severe bilateral CTS Fibromyalgia 05/04/2015 Depression, major 04/02/2013 FH: breast cancer in first degree relati ve 03/07/2011 Esophageal reflux 09/01/2006 Systemic lupus erythematosus 09/01/2006 Overview: DISCOID LESIONS, SUB-ACUTE SKIN LESIONS -seen by dr Warner ARTHRALGIAS, MILD PROTEINURIA - resolved + Anti-DNA, Anti-MANAGER BACKGROUND, Anti-Sm, SS-A On hydroxychloroquine - eye exam OK 01/14; 07/17, 05/19, 06/21, 09/24, 12/26 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 Normal left ventricular ejection fraction of 64%. Mild transient ischemic dilatation. 11/13 echo Preserved left ventricular function. Normal appearing valves Morbid obesity 05/30/2005 Resolved Problems Problem Noted Date Resolved Date Obesity 11/07/2018 09/18/2020 Type 2 diabetes mellitus wit h diabetic neuropathy, without long-term current use of insulin 05/01/2018 05/23/2019 Morbid obesity with BMI of 40.0-44.9, adult 10/0 10/201709/18/2020 Immunizations Name Administration Dates Next Due COVID-19 (Moderna) PT Reported 09/10/2020,2020 Influenza (> 6 Months) 11/26/2019,12/06/2016, Influenza Flu (PT Reported) 11/07/2011 Influenza Vaccine-preservati ve Free-quadrivalent 4 Years 12/17/2020 Pneumoccoccal(Adult) Polysaccharide PPSV23 03/26 TD (STATE SUPPLIED FOR ADULTS AND CHILDREN) 03/09 Family History Medical History Relation Name Comments [place] Breast Aunt m aunt dx age 53, aliv e and well Diabetes Brother [place] Prostate Father Hypertension Father [place] Breast Maternal Grandmother ag e 78 [place] Breast Mother dx age 49, recu rrence 2007 met to bone and liver currently on chemo Cholesterol Level Mother Hypertension Mother Blindness Negative Hx Cataract Negative Hx Glaucoma Negative Hx Macular Degeneration Negative Hx Strabismus Negative Hx Relation Name Status Comments Aunt m aunt Brother Alive 2,healthy Father Maternal Grandfather Maternal Grandmother Mother Paternal Grandfather Paternal Grandmother Social History Tobacco Use Types Packs/Day Years Used Date Smoking Tobacco: Every Day Cigarettes 0.5 24 Smokeless Tobacco: Never Tobacco Cessation:Ready to Q uit: Not Asked; Counseling Given: Not Answered Alcohol Use Standard Drinks/Week Comments No 0 (1 standard drink = 0.6 oz pur e alcohol) Sex Assigned at Date Recorded Female 06/01/2020 9:48 AM E DT Job Start Date Occupation Industry Not on file Not on file Not on file Last Filed Vital Signs Vital Sign Reading Time Taken Comments Blood Pressure 122/82 11/14/2023 9:39 AM EDT Pulse 77 11/14/2023 9:39 AM EDT Temperature 33.9 ??C (93.1 ??F) 11/14/2023 9:39 AM ED T Respiratory Rate 20 03/31/2023 9:00 AM EST Oxygen Saturation 95% 11/14/2023 9:39 AM EDT Inhaled Oxygen Concentration - - Weight 115.7 kg (255 lb) 11/14/2023 9:39 AM EDT Height 175.3 cm (5' 9 ) 11/14/2023 9:39 AM EDT Body Mass Index 37.66 11/14/2023 9:39 AM EDT Plan of Treatment Upcoming Encounters Date Type Specialty Care Team Description 10/17/2024 Nanotechnologist Report Abstract, Provider Health Maintenance Due Date Last Done Comments DEPRESSION SCREEN 1979 DIABETES: ANNUAL FOOT EXAM 04/14/1985 SHINGLES VACCINE (1 of 2) 04/14/2017 DTAP/TDAP/TD (1 - Tdap) 03/27/2018 03/26/2018 DIABETES: ANNUAL URINE PROTE IN TEST (MICROALBUMIN) 08/11/2023 08/10/2022, 10/05/2021, 01/04/2021, Additional history exists Covid-19 Vaccine (3 - 2022-2 4 season) 2023 09/10/2020, 08/20/2020 INFLUENZA (#1) 2023 12/17/2020, 11/07, 12/06/2016, Additional history exists DIABETES: BLOOD SUGAR CONTRO L TEST (HGBA1C) 01/25/2024 10/26/2023, 05/04/2023, 05/04/2023, Additional history exists BMI CHECK/ADVISE 02/07/2024 09/22/2023, 06/2023, 05/03/2023, Additional history exists DEPRESSION SCREENING/FOLLOWUP 02/07/2024, 04/12/2022, 11/19/2021, Additional history exists SOCIAL NEEDS SCREENING 02/07/2024 MAMMOGRAM 03/30/2024 03/30/2023, 10/2016, 03/05/2009, Additional history exists DIABETES: ANNUAL EYE EXAM 06/25/20242023, 06/23/2022, 06/22/2021, Additional history exists DIABETES/HEART DISEASE: MICHEL MCGRATH CHOLESTEROL (LDL) 10/25/2024 10/26/2023, 08/10/2022, 04/16/2021, Additional history exists BASELINE HEALTH EXAM 40-64 10/25/202510/25, 09/22/2023, 02/15/2023, Additional history exists CERVICAL CANCER SCREENING 05/02/20262023, 03/07/2011, 08/21/2008, Additional history exists COLON CANCER SCREENING 10/11/2028 10/12/2023, 2023 PNEUMOCOCCAL VACCINE FOR HIG H RISK PATIENTS (#2) 04/14/2032 03/26/2018 HEPATITIS C SCREENING Completed 02/12/2009 Care Teams Owner Spa Director Relationship Specialty Start Date End Date Darrel Tony MD [address] [place] [address] PCP - General Internal Medicine 11/22/21
--- OUTSIDE RECORDS SUMMARY | 2024-03-29 11:17 | XMS_ITS | Encounter Summary ---
Author Organization [facility] Address [address] [place] [address] Care Team Providers Care In School Suspension Coordinator Name Role Phone Colette Anderson MD Primary Care Provider U Darrel Castro MD Primary Care Provider +1 -[phone] Encounter Details Date Type Department Care Team Description 12/14/2020 Pt. Non Urgent Medical Question Adult Medicine [address] [address] Colette Anderson MD Social History Tobacco Use Types Packs/Day [...] have Coronavirus / COVID-19? No / Unsure 12/17/2020 2:16 PM EST documented as of this encounter Miscellaneous Notes * Telephone Encounter - Sharon Javier - 12/14/2020 1:41 PM ESTFrom: Galina Penny To: Meek Jennings Sent: 12/14/2020 1:37 PM EST Subject: Pain Hi Dr Jennings,. I understand you are busy but I'm at a road block. You are my PCP and I'm not gettinganywhere with my pain management. I have seen Suzanne Krishnan and Abeba. Abeba did give me 7 oxycodone-acetaminophen 5mg. I had to take 2 at a time but it did work. Eulogio says I have to go through you for a contract for my Zolpidem Tartrate, so he wouldn't refill those for my sleep. I need an ap pointment with YOU. GALINA PENNY documented in this encounter Plan of Treatment Upcoming Encounters Date Type Specialty Care Team Description 10/17/2024 Group Insurance Specialist Report Abstract, Provider documented as of this encounter Visit Diagnoses Not on filedocumented in this encounter Care Teams In School Suspension Coordinator Relationship Specialty Start Date End Date Colette Anderson MD PCP - General Internal Medicine 02/26/1811/06 Darrel Tony MD [address] [place] [address] PCP - General Internal Medicine 11/22/21 documented as of this encounter
--- OUTSIDE RECORDS SUMMARY | 2024-03-29 11:17 | XMS_ITS | Encounter Summary ---
Author Organization [facility] Address [address] [place] [address] Care Team Providers Care Optic Fibre Drawer Name Role Phone Colette Anderson MD Primary Care Provider U Darrel Castro MD Primary Care Provider +1 -[phone] Reason for Visit * Reason Onset Date Comments Faxed Refill 11/24/2020 Encounter Details Date Type Department Care Team Description 11/24/2020 Refill Adult Medicine B - [place] [address] [place] [address] Colette Anderson MD Faxed Refill Social History Tobacco Use Types Packs/Day Years [...] encounter Miscellaneous Notes * Telephone Encounter - Renee Escobar M.A - 11/25/2020 9:54 AM EDT BSR please book appointment for patient. When patient calls back. * Telephone Encounter - Daniella Hummel - 11/24/2020 9:15 AM EDT [phone] (home) [phone] (work) Left message to call back. Please put to [phone] or re-message to A side Mychart response sent to the pt. Rx hand faxed. * Telephone Encounter - Eulogio Joyner PA-C - 11/24/2020 9:12 AM EDT Patient needs appointment with PCP to discuss contract for this medication. I will provide a 14-daysupply and patient needs to be scheduled with Dr Jennings to discuss further prescriptions and contract. * Telephone Encounter - Armida Alvarez M.A. - 11/24/2020 8:59 AM EDT LRF 09/18/20 MATT 10/30/20 NOV 12/01/20 Last issue date of medication reviewed, patient is due for medication. Patient is NOT contracted for this medication. No results found for: URBENZO, UROPIATES, UROXYCODONE, URBARBITUATE, PAINAMPHETAM, PAINCOCAINE, PAINCANNABIN * Telephone Encounter - Robyn Quintana - 11/24/2020 8:56 AM EDT Patient would like script to be: E-PRESCRIBED/FAXED TO PHARMACY WHEN WAS THE PATIENT'S LAST APPOINTMENT IN ADULT MEDICINE? 10/30/20 WHEN WAS THE LAST TIME THE PATIENT SAW THEIR PCP? 07/27/20 Does patient have an upcoming appointment? Yes 12/01/20 (THE MEDICATION REQUESTED IS ON THE MED LIST ABOVE) All of the medications requested were on the CURRENT MEDS list Did you check the Pharmacy information above?: YES Patient wants: 30 -day supply Is this a mail order prescription request ? NO If the refill is from a FAXED refill request what is the RX # listed on the fax? N/A Patients current insurance carrier is: Payor: [employer] / Plan: [employer] / Product Type: MEDICAID RISK documented in this encounter Plan of Treatment Upcoming Encounters Date Type Specialty Care Team Description 10/17/2024 Supervisor Grain And Yeast Plants Report Abstract, Provider documented as of this encounter Visit Diagnoses Not on filedocumented in this encounter Care Teams Optic Fibre Drawer Relationship Specialty Start Date End Date Colette Anderson MD PCP - General Internal Medicine 02/26/1811/06 Darrel Tony MD [address] [place] [address] PCP - General Internal Medicine 11/22/21 documented as of this encounter
--- OUTSIDE RECORDS SUMMARY | 2024-03-29 11:17 | XMS_ITS | Encounter Summary ---
Author Organization [facility] Address [address] [place] [address] Care Team Providers Care Transfer Engineer Name Role Phone Colette Anderson MD Primary Care Provider U Darrel Castro MD Primary Care Provider +1 [phone] Encounter Details Date Type Department Care Team Description 01/06/2021 PNO Controlled Substance Contract Medical Records [address] [place] [address] Abstract, Provider Social History Tobacco Use Types [...] have Coronavirus / COVID-19? No / Unsure 01/04/2021 1:42 PM EST documented as of this encounter Plan of Treatment Upcoming Encounters Date Type Specialty Care Team Description 10/17/2024 Site Reliability Engineer Report Abstract, Provider documented as of this encounter Visit Diagnoses Not on filedocumented in this encounter Care Teams Transfer Engineer Relationship Specialty Start Date End Date Colette Anderson MD PCP - General Internal Medicine 02/26/1811/06 Darrel Tony MD [address] [place] [address] PCP - General Internal Medicine 11/22/21 documented as of this encounter
--- OUTSIDE RECORDS SUMMARY | 2024-03-29 11:17 | XMS_ITS | Encounter Summary ---
Author Organization [facility] Address [address] [place] [address] Care Team Providers Care District Ranger Name Role Phone Darrel Tony MD Primary Care Provider +1 [phone] Encounter Details Date Type Department Care Team Description 09/07/2023 Refill [facility] [address] [facility] [address] [place] [phone] Thuy Pennington PAGurdeepC [address] [facility] [address] [place] [address] Social History Tobacco Use Types Packs/Day Years [...] Date Type Specialty Care Team Description 10/17/2024 Traffic Signal Repairer Report Abstract, Provider documented as of this encounter Visit Diagnoses Not on filedocumented in this encounter Care Teams District Ranger Relationship Specialty Start Date End Date Darrel Tony MD [address] [place] [address] PCP - General Internal Medicine 11/22/21 documented as of this encounter
--- OUTSIDE RECORDS SUMMARY | 2024-03-29 11:17 | XMS_ITS | Encounter Summary ---
Author Organization [facility] Address [address] [place] [address] Care Team Providers Care Metallurgical Engineer Name Role Phone Colette Anderson MD Primary Care Provider U Darrel Castro MD Primary Care Provider +1 -[phone] Encounter Details Date Type Department Care Team Description 01/13/2021 Pt. Non Urgent Medical Question Adult Medicine B - [address] [address] Trish Hyatt PA-C [address] [place] [address] Type 2 diabetes mellitus with microalbuminuria, with long-term current use of insulin (HCC) Social History Tobacco Use Types Packs/Day Years [...] as of this encounter Progress Notes * Jessika Toledo L.P.N. - 01/13/2021 4:58 PM EST [phone] (home) [phone] (work) Phone states not accepting any phone calls at this time my chart msg sent documented in this encounter Miscellaneous Notes * Telephone Encounter - Melinda Hawkins M.A. - 01/13/2021 4:27 PM ESTFrom: Galina Doyle To: Alireza Hyatt Sent: 01/13/2021 4:26 PM EST Subject: Uncontrolled sugar levels I have raised my Lantus to 40 units and taking the Humalog on a sliding scale every 4 hours and taking the Metformin 1000mg bid and i can't get it under 220, any suggestions? documented in this encounter Plan of Treatment Upcoming Encounters Date Type Specialty Care Team Description 10/17/2024 Pot Puller Report Abstract, Provider documented as of this encounter Visit Diagnoses Diagnosis Type 2 diabetes mellitus with microalbuminuria, with long-term current use of insulin (HCC) documented in this encounter Care Teams Metallurgical Engineer Relationship Specialty Start Date End Date Colette Anderson MD PCP - General Internal Medicine 02/26/1811/06 Darrel Tony MD [address] [place] [address] PCP - General Internal Medicine 11/22/21 documented as of this encounter
--- OUTSIDE RECORDS SUMMARY | 2024-03-29 11:17 | XMS_ITS | Encounter Summary ---
Author Organization [facility] Address [address] [place] [address] Care Team Providers Care Dry Roaster Name Role Phone Stefan Johnson Primary Care Provider Unav ailable Colette Anderson MD Primary Care Provider U rosarioailDarrel Dugan MD Primary Care Provider +1 -[phone] Encounter Details Date Type Department Care Team Description 11/17/2017 Release of Information Medical Records [address] [place] [address] Abstract, Provider Social History Tobacco Use Types Packs/Day Years Used Date Smoking Tobacco: Every Day Cigarettes 0.5 24 Smokeless Tobacco: Never Comments:10 [...] Date Type Specialty Care Team Description 10/17/2024 Slasher Tender Helper Report Abstract, Provider documented as of this encounter Visit Diagnoses Not on filedocumented in this encounter Care Teams Dry Roaster Relationship Specialty Start Date End Date Stefan Johnson PCP - General Internal Medicine 11/14/17 02/25/18 Colette Anderson MD PCP - General Internal Medicine 02/26/1811/06 Darrel Tony MD [address] [place] [address] PCP - General Internal Medicine 11/22/21 documented as of this encounter
--- OUTSIDE RECORDS SUMMARY | 2024-03-29 11:17 | XMS_ITS | Encounter Summary ---
Author Organization [facility] Address [address] [place] [address] Care Team Providers Care Wharf Builder Name Role Phone Darrel Tony MD Primary Care Provider +1 -[phone] Encounter Details Date Type Department Care Team Description 10/17/2023 Orders Only Medical Records [address] [place] [address] uRfus Bernard MD [address] [place] [address] Social History Tobacco Use Types Packs/Day Years [...] Date Type Specialty Care Team Description 10/17/2024 Core Cutter And Reamer Report Abstract, Provider documented as of this encounter Procedures Procedure Name Priority Date/Time Associated Diagnosis Comments OUTSIDE COLONOSCOPY Routine 10/12/2023 documented in this encounter Results * OUTSIDE COLONOSCOPY (10/12/2023) Rufus Bernard MD RADIOLOGY documented in this encounter Visit Diagnoses Not on filedocumented in this encounter Care Teams Wharf Builder Relationship Specialty Start Date End Date Darrel Tony MD [address] [place] [id number] PCP - General Internal Medicine 11/22/21 documented as of this encounter
--- OUTSIDE RECORDS SUMMARY | 2024-03-29 11:17 | XMS_ITS | Encounter Summary ---
Author Organization [facility] Address [address] [place] [address] Care Team Providers Care Weatherstrip Machine Operator Name Role Phone Darrel Tony MD Primary Care Provider +1 -[phone] Reason for Visit * Reason Onset Date Comments refill request 05/15/2023 Encounter Details Date Type Department Care Team Description 05/15/2023 Telephone Adult Medicine [address] [address] Darrel Tony MD [address] [place] [address] refill request Social History Tobacco Use Types [...] Telephone Encounter - Suzanne Winston NP - 05/16/2023 1:11 PM EDT 90-day supply sent on April 12. * Telephone Encounter - Marcie Davenport M.A. - 05/16/2023 12:58 PM EDT Date of last office visit was 03/17/23 Pended appt for 05/26/23 Lab Results Component Value Date NA 142 05/04/2023 K 3.9 05/04/2023 CO2 26 05/04/2023 CL 110 05/04/2023 BUN 14 05/04/2023 CREAT 0.86 05/04/2023 GLU 320 05/04/2023 CA 8.8 05/04/2023 GFR 79 05/04/2023 * Telephone Encounter - Babatunde Jacques - 05/15/2023 2:02 PM EDT Patient would like script to be: E-PRESCRIBED/FAXED TO PHARMACY WHEN WAS THE PATIENT'S LAST APPOINTMENT IN ADULT MEDICINE? 03/17/23 WHEN WAS THE LAST TIME THE PATIENT SAW THEIR PCP? none Does patient have an upcoming appointment? Yes 05/26/23 (THE MEDICATION REQUESTED IS ON THE MED LIST ABOVE) All of the medications requested were on the CURRENT MEDS list Did you check the Pharmacy information above?: YES Patient wants: 90 -day supply Is this a mail order prescription request ? NO If the refill is from a FAXED refill request what is the RX # listed on the fax? N/A Patients current insurance carrier is: Payor: [employer] [place] [employer] MCR / Plan: [facility] / Product Type: HMO [id number] documented in this encounter Plan of Treatment Upcoming Encounters Date Type Specialty Care Team Description 10/17/2024 Technical Support Assistant Report Abstract, Provider documented as of this encounter Visit Diagnoses Not on filedocumented in this encounter Care Teams Weatherstrip Machine Operator Relationship Specialty Start Date End Date Darrel Tony MD [address] [place] [address] PCP - General Internal Medicine 11/22/21 documented as of this encounter
--- OUTSIDE RECORDS SUMMARY | 2024-03-29 11:17 | XMS_ITS | Encounter Summary ---
Author Organization [facility] Address [address] [place] [address] Care Team Providers Care Surgical Scheduler Name Role Phone Darrel Tony MD Primary Care Provider +1 -[phone] Encounter Details Date Type Department Care Team Description 10/12/2023 Orders Only Medical Records [address] [place] [address] Rufus Bernard MD [address] [place] [address] Social History Tobacco Use Types Packs/Day Years [...] Date Type Specialty Care Team Description 10/17/2024 Adoption Social Worker Report Abstract, Provider documented as of this encounter Procedures Procedure Name Priority Date/Time Associated Diagnosis Comments OUTSIDE LAB Routine 10/12/2023 documented in this encounter Results * OUTSIDE LAB (10/12/2023) Rufus Bernard MD LAB documented in this encounter Visit Diagnoses Not on filedocumented in this encounter Care Teams Surgical Scheduler Relationship Specialty Start Date End Date Darrel Tony MD [address] [place] [id number] PCP - General Internal Medicine 11/22/21 documented as of this encounter
--- OUTSIDE RECORDS SUMMARY | 2024-03-29 11:17 | XMS_ITS | Encounter Summary ---
Author Organization [facility] Address [address] [place] [address] Care Team Providers Care Lcac Operator Name Role Phone Colette Anderson MD Primary Care Provider U Darrel Castro MD Primary Care Provider +1 -[phone] Reason for Visit * Reason Onset Date Comments Prior Authorization 11/03/2020 Encounter Details Date Type Department Care Team Description 11/03/2020 Telephone Adult [facility] - [address] [address] Colette Anderson MD Prior Authorization Social History Tobacco Use Types Packs/Day Years [...] Date Type Specialty Care Team Description 10/17/2024 Yarn Preparation Supervisor Report Abstract, Provider documented as of this encounter Visit Diagnoses Not on filedocumented in this encounter Care Teams Lcac Operator Relationship Specialty Start Date End Date Colette Anderson MD PCP - General Internal Medicine 02/26/1811/06 Darrel Tony MD [address] [place] [address] PCP - General Internal Medicine 11/22/21 documented as of this encounter
--- OUTSIDE RECORDS SUMMARY | 2024-03-29 11:17 | XMS_ITS | Encounter Summary ---
Author Organization [facility] Address [address] [place] [address] Care Team Providers Care Vp Cardiovascular Service Line Name Role Phone Colette Anderson MD Primary Care Provider U Darrel Castro MD Primary Care Provider +1 -[phone] Encounter Details Date Type Department Care Team Description 10/22/2020 Pt. Non Urgent Medical Question Nephrology - [address] [address] Wagner Herrera MD [address] [place] [address] Social History Tobacco Use Types Packs/Day Years [...] Date Type Specialty Care Team Description 10/17/2024 Radio Program Checker Report Abstract, Provider documented as of this encounter Visit Diagnoses Not on filedocumented in this encounter Care Teams Vp Cardiovascular Service Line Relationship Specialty Start Date End Date Colette Anderson MD PCP - General Internal Medicine 02/26/1811/06 Darrel Tony MD [address] [place] [address] PCP - General Internal Medicine 11/22/21 documented as of this encounter
--- OUTSIDE RECORDS SUMMARY | 2024-03-29 11:17 | XMS_ITS | Encounter Summary ---
Author Organization [facility] Address [address] [place] [address] Care Team Providers Care Bulk Mail Clerk Name Role Phone Colette Anderson MD Primary Care Provider U Darrel Castro MD Primary Care Provider +1 -[phone] Reason for Referral * Non APRIL (Urgent) - Authorized/Booked Specialty Diagnoses / Procedures Referred By Contact Referred To Contact Oncology/Hematology Procedures REFERRAL TO ONCOLOGY/HEMATOLOGY (IN NETWORK) Colette Anderson MD [address] [place] [address] Diego Javed MD [address] [place] [address] Referral ID Status Reason Start Date Expiration Date V isits Requested Visits Authorized [id number] Authorized/B ooked 03/13/2019 03/12/2020 12 12 Encounter Details Date Type Department Care Team Description 03/13/2019 Orders Only Adult Medicine B - [address] [address] Colette Anderson MD Social History Tobacco Use [...] Date Type Specialty Care Team Description 10/17/2024 Welding Machine Operator Arc Report Abstract, Provider documented as of this encounter Visit Diagnoses Not on filedocumented in this encounter Care Teams Bulk Mail Clerk Relationship Specialty Start Date End Date Colette Anderson MD PCP - General Internal Medicine 02/26/1811/06 Darrel Tony MD [address] [place] [address] PCP - General Internal Medicine 11/22/21 documented as of this encounter
--- OUTSIDE RECORDS SUMMARY | 2024-03-29 11:17 | XMS_ITS | Encounter Summary ---
Author Organization [facility] Address [address] [place] [address] Care Team Providers Care Health Claims Examiner Name Role Phone Colette Anderson MD Primary Care Provider U Darrel Castro MD Primary Care Provider +1 -[phone] Encounter Details Date Type Department Care Team Description 02/23/2021 Orders Only Endocrinology - [address] [address] Trish Hyatt PA-C [address] [place] [address] Type 2 diabetes mellitus with microalbuminuria, with [...] or suspected to have Coronavirus / COVID-19? Unable to assess 02/23/2021 2:25 PM EST documented as of this encounter Plan of Treatment Upcoming Encounters Date Type Specialty Care Team Description 10/17/2024 Roll Forming Supervisor Report Abstract, Provider documented as of this encounter Visit Diagnoses Diagnosis Type 2 diabetes mellitus with microalbuminuria, with long-term current use of insulin (HCC) documented in this encounter Care Teams Health Claims Examiner Relationship Specialty Start Date End Date Colette Anderson MD PCP - General Internal Medicine 02/26/1811/06 Darrel Tony MD [address] [place] [address] PCP - General Internal Medicine 11/22/21 documented as of this encounter
--- OUTSIDE RECORDS SUMMARY | 2024-03-29 11:17 | XMS_ITS | Encounter Summary ---
Author Organization [facility] Address [address] [place] [address] Care Team Providers Care Printing Estimator Name Role Phone Colette Anderson MD Primary Care Provider U Darrel Castro MD Primary Care Provider +1 -[phone] Encounter Details Date Type Department Care Team Description 02/09/2021 Pt. Non Urgent Medical Question Adult Medicine B - [address] [address] Trish Hyatt PA-C [address] [place] [address] Social History Tobacco Use Types Packs/Day Years [...] Telephone Encounter - Sharon Javier M.A. 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 Galina Doyle documented in this encounter Plan of Treatment Upcoming Encounters Date Type Specialty Care Team Description 10/17/2024 Dispatcher Electric Power Report Abstract, Provider documented as of this encounter Visit Diagnoses Not on filedocumented in this encounter Care Teams Printing Estimator Relationship Specialty Start Date End Date Colette Anderson MD PCP - General Internal Medicine 02/26/1811/06 Darrel Tony MD [address] [place] [address] PCP - General Internal Medicine 11/22/21 documented as of this encounter
--- OUTSIDE RECORDS SUMMARY | 2024-03-29 11:17 | XMS_ITS | Encounter Summary ---
Author Organization [facility] Address [address] [place] [address] Care Team Providers Care Labor Economics Teacher Name Role Phone Darrel Tony MD Primary Care Provider +1 -[phone] Reason for Visit * Reason Onset Date Comments Faxed Order 03/22/2023 MRI Encounter Details Date Type Department Care Team Description 03/22/2023 Telephone [facility] [address] [facility] [address] [place] [phone] Thuy Pennington, PA-C [address] [facility] [address] [place] [address] Faxed Order (MRI) Social History Tobacco Use Types Packs/Day Years [...] encounter Miscellaneous Notes * Telephone Encounter - Elvira Hernandez - 04/04/2023 9:46 AM EST REfaxed order yesterday. Waiting for appointment date and time * Telephone Encounter - Elvira Hernandez - 03/22/2023 8:01 AM EST Good Morning Thuy Murrell placed an order for an MRI and is requesting that it be scheduled as soon as possible please. Thanks documented in this encounter Plan of Treatment Upcoming Encounters Date Type Specialty Care Team Description 10/17/2024 Taxicab Starter Report Abstract, Provider documented as of this encounter Visit Diagnoses Not on filedocumented in this encounter Care Teams Labor Economics Teacher Relationship Specialty Start Date End Date Darrel Tony MD [address] [place] [address] PCP - General Internal Medicine 11/22/21 documented as of this encounter
--- OUTSIDE RECORDS SUMMARY | 2024-03-29 11:17 | XMS_ITS | Encounter Summary ---
Author Organization [facility] Address [address] [place] [address] Care Team Providers Care Director Financial Analysis Name Role Phone Darrel Tony MD Primary Care Provider +1 -[phone] Encounter Details Date Type Department Care Team Description 09/07/2023 Refill Internal Medicine - [place] [address] [facility], [address] [place] [address] Darrel Tony MD [address] [place] [address] Social History Tobacco Use Types Packs/Day Years [...] encounter Miscellaneous Notes * Telephone Encounter - Mirtha Gilliland M.A. - 09/07/2023 1:52 PM EDT [place] 06/13/23 pended 09/26/23 Lab Results Component Value Date NA 139 06/27/2023 K 3.9 06/27/2023 CO2 25 06/27/2023 CL 107 06/27/2023 BUN 11 06/27/2023 CREAT 0.77 06/27/2023 GLU 236 06/27/2023 CA 9.5 06/27/2023 GFR 90 06/27/2023 documented in this encounter Plan of Treatment Upcoming Encounters Date Type Specialty Care Team Description 10/17/2024 End Polisher Report Abstract, Provider documented as of this encounter Visit Diagnoses Not on filedocumented in this encounter Care Teams Director Financial Analysis Relationship Specialty Start Date End Date Darrel Tony MD [address] [place] [address] PCP - General Internal Medicine 11/22/21 documented as of this encounter
--- OUTSIDE RECORDS SUMMARY | 2024-03-29 11:17 | XMS_ITS | Encounter Summary ---
Author Organization [facility] Address [address] [place] [address] Care Team Providers Care Light Armored Vehicle Officer Name Role Phone Darrel Tony MD Primary Care Provider +1 -[phone] Encounter Details Date Type Department Care Team Description 08/08/2023 Refill Adult Medicine [address] [address] Darrel Tony MD [address] [place] [address] Social History Tobacco Use Types Packs/Day Years [...] encounter Miscellaneous Notes * Telephone Encounter - Sherrie Morrison MA. - 08/09/2023 8:18 AM EDT Faxed to pharmacy * Telephone Encounter - Marcie Davenport M.A. - 08/08/2023 2:12 PM EDT Date of last office visit was 06/13/23. Pended appt for 8/16/24 Controlled substance contract and last issue date of medication reviewed. Patient is due for medication. Lab Results Component Value Date URBENZO NONE DETECTED 07/11/2023 UROPIATES POSITIVE 07/11/2023 UROXYCODONE POSITIVE 07/11/2023 URBARBITUATE NONE DETECTED 07/11/2023 PAINAMPHETAM NONE DETECTED 07/11/2023 PAINCOCAINE NONE DETECTED 07/11/2023 PAINCANNABIN NONE DETECTED 07/11/2023 07/16/2023 06/29/2023 1 Zolpidem Tartrate 10 Mg Tablet 30 30 [facility] [id number] [facility] 0/0 0.50 [place] 07/10/2023 07/10/2023 1 Oxycodone Hcl (Ir) 10 Mg Tab 42 28 Ka Gun [id number] [facility] (4352) 0/0 22.50 [place] 07/06/2023 07/06/2023 1 Gabapentin 600 Mg Tablet 168 28 Pa Sivakumar [id number] [facility] (1855) 0/3 4.02 [place] 06/15/2023 05/16/2023 1 Zolpidem Tartrate 10 Mg Tablet 30 30 [facility] [id number] [facility] (1855) 0/0 0.50 [place] 06/09/2023 06/09/2023 1 Oxycodone Hcl (Ir) 10 Mg Tab 42 28 Al Jar [id number] [facility] (4352) 0/0 22.50 [place] 06/06/2023 06/06/2023 1 Gabapentin 600 Mg Tablet 168 28 Ja Iraj [id number] [facility] (1855) 0/0 4.02 [place] 05/13/2023 04/05/2023 1 Zolpidem Tartrate 10 Mg Tablet 30 30 [facility] [id number] [facility] (1855) 0/0 0.50 [place] 05/13/2023 01/13/2023 1 Gabapentin 600 Mg Tablet 168 28 Ja Iraj [id number] [facility] (1855) 4/4 4.02 [place] 05/12/2023 05/12/2023 1 Oxycodone Hcl (Ir) 10 Mg Tab 42 28 Ka Gun [id number] [facility] (4352) 0/0 22.50 [place] 04/19/2023 01/13/2023 1 Gabapentin 600 Mg Tablet 168 28 Ja Iraj [id number] [facility] (1855) 3/4 4.02 [place] 04/13/2023 04/13/2023 1 Oxycodone Hcl (Ir) 10 Mg Tab 42 28 Ka Gun [id number] [facility] (4352) 0/0 22.50 [place] 03/27/2023 03/20/2023 1 Zolpidem Tartrate 10 Mg Tablet 30 30 Je Cam [id number] [facility] (1855) 0/0 0.50 [place] 03/18/2023 01/13/2023 1 Gabapentin 600 Mg Tablet 168 28 Ja Iraj [id number] [facility] (1855) 2/4 4.02 [place] 03/16/2023 03/16/2023 1 Oxycodone Hcl (Ir) 10 Mg Tab 42 28 Ka Gun [id number] [facility] (4352) 0/0 22.50 [place] 02/19/2023 02/17/2023 1 Zolpidem Tartrate 10 Mg Tablet 30 30 [facility] [id number] [facility] (1855) documented in this encounter Plan of Treatment Upcoming Encounters Date Type Specialty Care Team Description 10/17/2024 Gum Remover Report Abstract, Provider documented as of this encounter Visit Diagnoses Diagnosis Fibromyalgia Mylagia and myositis, unspecified Other chronic pain documented in this encounter Care Teams Light Armored Vehicle Officer Relationship Specialty Start Date End Date Darrel Tony MD [address] [place] [address] PCP - General Internal Medicine 11/22/21 documented as of this encounter
--- OUTSIDE RECORDS SUMMARY | 2024-03-29 11:17 | XMS_ITS | Encounter Summary ---
Author Organization [facility] Address [address] [place] [address] Care Team Providers Care Development System Efficiency Manager Name Role Phone Darrel Tony MD Primary Care Provider +1 -[phone] Encounter Details Date Type Department Care Team Description 07/05/2023 Release of Information Medical Records [address] [place] [address] Abstract, Provider Social History Tobacco Use Types [...] Date Type Specialty Care Team Description 10/17/2024 Customer Service Leader Report Abstract, Provider documented as of this encounter Visit Diagnoses Not on filedocumented in this encounter Care Teams Development System Efficiency Manager Relationship Specialty Start Date End Date Darrel Tony MD [address] [place] [address] PCP - General Internal Medicine 11/22/21 documented as of this encounter
--- OUTSIDE RECORDS SUMMARY | 2024-03-29 11:17 | XMS_ITS | Encounter Summary ---
Author Organization [facility] Address [address] [place] [address] Care Team Providers Care Auto Roller Name Role Phone Colette Anderson MD Primary Care Provider U Darrel Castro MD Primary Care Provider +1 -[phone] Reason for Visit * Reason Onset Date Comments Appointment-Internal Referral 02/28/2019 Ne phrology Encounter Details Date Type Department Care Team Description 02/28/2019 Telephone Adult Medicine - [place] [address] [place] [address] Colette Anderson MD Appointment-Internal Referral (Nephrology) Social History Tobacco Use Types Packs/Day Years [...] encounter Miscellaneous Notes * Telephone Encounter - Ayah Etienne - 02/28/2019 9:39 AM EST Galina Dean has not responded to the telephone calls that were made on 02/01/19 and 02/07/19 as well as aletter that was sent on 02/18/19 to schedule a Consult in Nephorology ; therefore we are removing the patient from our open internal referrals report at this time. If you should hear from the patient please let them know that we did attempt to reach them. ?? Thank you, Ayah Internal Central Scheduling documented in this encounter Plan of Treatment Upcoming Encounters Date Type Specialty Care Team Description 10/17/2024 Pets Salesperson Report Abstract, Provider documented as of this encounter Visit Diagnoses Not on filedocumented in this encounter Care Teams Auto Roller Relationship Specialty Start Date End Date Colette Anderson MD PCP - General Internal Medicine 02/26/1811/06 Darrel Tony MD [address] [place] [address] PCP - General Internal Medicine 11/22/21 documented as of this encounter
--- OUTSIDE RECORDS SUMMARY | 2024-03-29 11:18 | XMS_ITS | Continuity of Care Document ---
Author Organization [employer] [place], [place] in - [facility] Address [address] [place] [address] Care Team Providers Care Door To Door Selling Distributor Name Role Phone [facility] Primary Care Provi nahum HIM CCA OTHER Assessment No assessment recorded. Plan of Treatment Reminders Order Date Submit Date Provider Last Modified By Organization Details Last Modified Time Details Appointments None recorded. Lab BMP, serum or plasma [address], [address] [place] [address], [phone], 5 13:22:39 rapid SARS CoV 2 Ag, QL [place], respiratory specimen [address], [address] [place] [address], [phone], 5 13:22:39 rapid flu (A+B) [address], [address] [place] [address], [phone], 5 13:22:39 Referral None recorded. Procedures None recorded. Surgeries None recorded. Imaging None recorded. Medication Orders ondansetron 4 mg disintegrat ing tablet 2024 025 [facility][id number], [address] [place], [address], 5 12:41:16 Patient TargetsNo targets recorded. Patient [...] Name and Address Organization Details Recorded Time 01771 trazodone medicatio n Not available Not available Not available 03/19/2024 91171 RxNorm Not Available [employer] - production 5 10:04:02 96972 tramadol medicatio n Not available Not available Not available 03/19/2024 83516 RxNorm Not Available [employer] - production 5 10:04:02 Medications Name Sig [...] Address Organization Details Last Updated DateTime 5 328108. 816 g 175.26 cm 97.9 [degF] 100 % 100 % 16 /min 78 /min 132 mm[Hg] 92 mm[Hg] Not Available [employer] - production 5 12:19:57 Social History None recorded. Functional Status None recorded. Mental Status None recorded. Family History Nothing Reported. Medical History No medical history recorded. Gynecological HistoryNo gynecological history recorded. Obstetrics History GPAL:G 0 P 0 0 0 0 Past Encounters Encounter ID Performer Location Encounter Start Date Encounter Closed Date Diagnosis/Indication Diagnosis SNOMED-CT Code Diagnosis ICD10 Code Diagnosis Note [id number] Sushma Sanchez MD Main - [address] [address] 03/19/2024 12:19:53 03/19/2024 17:52:46 Nausea and vomiting 01943218 R11.2 Evaluation in the field was performed by my brake lining curer colleague, as noted above, I provided real-time [...] course of cephalexin 1 wk ago. On brake lining curer eval VS wnl, exam unremarkab le. POC [...] Member ID Guarantor Name 03/19/2024 1 [facility] - DOS ON OR AFTER 2022 - DUAL ELIGIBLE - CUSTODIAL OPTIONS AND ONE CARE (MEDICARE REPLACEMENT/ADV ANTAGE - HMO) Galina Doyle [id number] Galina Doyle Notes Date Note Type Note [...] Allergies Reviewed at 03/19/2024 - :04 Comments: Shellfish Weigher verified the name//address and phone number. Pt [...] s/s and seek emergency treatment if needed Drill Setup Operator Organization Information for Abel Ron Business Legal Name: [facility] Transportation Address: [address] [place] [address], [place] [address], Systems Checkout Mechanic: Vito Gould MD CLIA No.: [id number] Drill Setup Operator POC Test Results from Abel Ron [facility] (12:25:05) pH: 7.38 pH units pCO2: 49.1 [...] .................... .................... .................... .................... .................... .................... . Drill Setup Operator Note From Abel Ron: This 58-year-old female [...] .................... .................... .................... .................... .................... .................... . [facility] Consulted: Sushma Sanchez .................... .................... .................... .................... .................... .................... .................... . Disposition: Fulfilled Sushma Sanchez MD [address] [facility],[address], [place], [address], [facility] - [email or web address], [place] 03/19/2024 13:23:04 OBGyn Episode No OBEpisode recorded.
--- OUTSIDE RECORDS SUMMARY | 2024-03-29 11:18 | XMS_ITS | Encounter Summary ---
Author Organization [facility] Address [address] [place] [address] Care Team Providers Care Degreaser Operator Name Role Phone Colette Anderson MD Primary Care Provider U Darrel Castro MD Primary Care Provider [phone] [phone] Reason for Visit * Reason Onset Date Comments medication problems 04/21/2021 Encounter Details Date Type Department Care Team Description 04/21/2021 Telephone Adult Medicine - [place] [address] [place] [address] Colette Anderson MD medication problems Social History Tobacco Use [...] have Coronavirus / COVID-19? No / Unsure 04/05/2021 3:37 PM EST documented as of this encounter Miscellaneous Notes * Telephone Encounter - Trish Hyatt PA-C - 04/22/2021 11:26 AM EDT Changed to [facility] * Telephone Encounter - Mary Avitia - 04/21/2021 3:52 PM EDT Who is calling? A pharmacist: Pharmacy: Name of the medication Humalog What is the specific problem or interaction? alternative requested, not covered by insurance-none given If the patient is having a problem with taking the med - how long has the problem been going on? N/A documented in this encounter Plan of Treatment Upcoming Encounters Date Type Specialty Care Team Description 10/17/2024 Lna Report Abstract, Provider documented as of this encounter Visit Diagnoses Not on filedocumented in this encounter Care Teams Degreaser Operator Relationship Specialty Start Date End Date Colette Anderson MD PCP - General Internal Medicine 02/26/1811/06 Darrel Tony MD [address] [place] [address] PCP - General Internal Medicine 11/22/21 documented as of this encounter
--- OUTSIDE RECORDS SUMMARY | 2024-03-29 11:18 | XMS_ITS | Encounter Summary ---
Author Organization [facility] Address [address] [place] [address] Care Team Providers Care Carpenter Repair Name Role Phone Colette Anderson MD Primary Care Provider U Darrel Castro MD Primary Care Provider +1 -[phone] Encounter Details Date Type Department Care Team Description 02/23/2021 Telephone Endocrinology - [place] [address] [place] [address] Trish Hyatt PA-C [address] [place] [address] Social History Tobacco Use Types Packs/Day Years [...] encounter Miscellaneous Notes * Telephone Encounter - Jennifer Beyrs - 03/02/2021 3:48 PM EST Faxed paperwork over to [facility] and talk to thao * Telephone Encounter - Emerita East M.A. - 03/02/2021 3:32 PM EST Office notes, labs and insurance information faxed to Thao [facility]un[facility] per his request. He states patient will be approved with her insurance. Called patient left message on answering machine to call the office of Trish Hyatt PA-C. * Telephone Encounter - Trish Hyatt PA-C - 02/23/2021 2:13 PM EST Can you please see why patient has not received dexcom, ordered a few months ago documented in this encounter Plan of Treatment Upcoming Encounters Date Type Specialty Care Team Description 10/17/2024 Signal Constructor Report Abstract, Provider documented as of this encounter Visit Diagnoses Not on filedocumented in this encounter Care Teams Carpenter Repair Relationship Specialty Start Date End Date Colette Anderson MD PCP - General Internal Medicine 02/26/1811/06 Darrel Tony MD [address] [place] [address] PCP - General Internal Medicine 11/22/21 documented as of this encounter
--- OUTSIDE RECORDS SUMMARY | 2024-03-29 11:18 | XMS_ITS | Encounter Summary ---
Author Organization [facility] Address [address] [place] [address] Care Team Providers Care Drawing Instructor Name Role Phone Colette Anderson MD Primary Care Provider U Darrel Castro MD Primary Care Provider +1 -[phone] Encounter Details Date Type Department Care Team Description 01/27/2020 Orders Only Adult Medicine B - [address] [address] Colette Anderson MD Social History Tobacco Use [...] or suspected to have Coronavirus / COVID-19? Yes 01/28/2020 1:16 PM EST documented as of this encounter Plan of Treatment Upcoming Encounters Date Type Specialty Care Team Description 10/17/2024 Casino Floor Supervisor Report Abstract, Provider documented as of this encounter Visit Diagnoses Not on filedocumented in this encounter Care Teams Drawing Instructor Relationship Specialty Start Date End Date Colette Anderson MD PCP - General Internal Medicine 02/26/1811/06 Darrel Tony MD [address] [place] [address] PCP - General Internal Medicine 11/22/21 documented as of this encounter
--- OUTSIDE RECORDS SUMMARY | 2024-03-29 11:18 | XMS_ITS | Encounter Summary ---
Author Organization [facility] Address [address] [place] [address] Care Team Providers Care Senior Front End Engineer Name Role Phone Darrel Tony MD Primary Care Provider [phone] [phone] Encounter Details Date Type Department Care Team Description 02/02/2022 Telephone Pulmonology [facility] [address] [facility] [address] [place] [address] Darrel Tony MD [address] [place] [address] Social History Tobacco Use Types Packs/Day Years [...] Date Type Specialty Care Team Description 10/17/2024 Coal Chute Worker Report Abstract, Provider documented as of this encounter Visit Diagnoses Not on filedocumented in this encounter Care Teams Senior Front End Engineer Relationship Specialty Start Date End Date Darrel Tony MD [address] [place] [id number] PCP - General Internal Medicine 11/22/21 documented as of this encounter
--- OUTSIDE RECORDS SUMMARY | 2024-03-29 11:18 | XMS_ITS | Encounter Summary ---
Author Organization [facility] Address [address] [place] [address] Care Team Providers Care Radiation Therapy Technician Name Role Phone Darrel Tony MD Primary Care Provider +1 -[phone] Encounter Details Date Type Department Care Team Description 07/19/2022 CGM Report Medical Records [address] [place] [address] Abstract, Provider Social History Tobacco Use Types [...] Date Type Specialty Care Team Description 10/17/2024 Panel Assembler Report Abstract, Provider documented as of this encounter Visit Diagnoses Not on filedocumented in this encounter Care Teams Radiation Therapy Technician Relationship Specialty Start Date End Date Darrel Tony MD [address] [place] [address] PCP - General Internal Medicine 11/22/21 documented as of this encounter
--- OUTSIDE RECORDS SUMMARY | 2024-03-29 11:18 | XMS_ITS | Encounter Summary ---
Author Organization [facility] Address [address] [place] [address] Care Team Providers Care Crate Maker Name Role Phone Darrel Tony MD Primary Care Provider +1 -[phone] Encounter Details Date Type Department Care Team Description 06/26/2022 Refill Nephrology - [address] [address] Wagner Herrera MD [address] [place] [address] Social History Tobacco Use Types Packs/Day Years [...] Date Type Specialty Care Team Description 10/17/2024 Curtain Cleaner Report Abstract, Provider documented as of this encounter Visit Diagnoses Not on filedocumented in this encounter Care Teams Crate Maker Relationship Specialty Start Date End Date Darrel Tony MD [address] [place] [address] PCP - General Internal Medicine 11/22/21 documented as of this encounter
--- OUTSIDE RECORDS SUMMARY | 2024-03-29 11:18 | XMS_ITS | Encounter Summary ---
Author Organization [facility] Address [address] [place] [address] Care Team Providers Care Cheese Supervisor Name Role Phone Colette Anderson MD Primary Care Provider U Darrel Castro MD Primary Care Provider +1 -[phone] Encounter Details Date Type Department Care Team Description 10/06/2021 Pt. Non Urgent Medical Question Nephrology - [place] [address] [place] [address] Wagner Herrera MD [address] [place] [address] Social History Tobacco Use Types Packs/Day Years [...] suspected to have Coronavirus/COVID-19? No / Unsure 10/05/2021 11:42 AM EDT documented as of this encounter Plan of Treatment Upcoming Encounters Date Type Specialty Care Team Description 10/17/2024 Print Production Coordinator Report Abstract, Provider documented as of this encounter Visit Diagnoses Not on filedocumented in this encounter Care Teams Cheese Supervisor Relationship Specialty Start Date End Date Colette Anderson MD PCP - General Internal Medicine 02/26/1811/06 Darrel Tony MD [address] [place] [address] PCP - General Internal Medicine 11/22/21 documented as of this encounter
--- OUTSIDE RECORDS SUMMARY | 2024-03-29 11:18 | XMS_ITS | Encounter Summary ---
Author Organization [facility] Address [address] [place] [address] Care Team Providers Care Utility Arborist Name Role Phone Darrel Tony MD Primary Care Provider +1 -[phone] Reason for Visit * Reason Onset Date Comments Chest Pain 03/19/2024 GI Problem 03/19/2024 Encounter Details Date Type Department Care Team (Late st Contact Info) Description 03/19/2024 [facility] [address] [place] [address] Darrel Tony MD [address] [place] [address] Chest Pain; GI Problem Social History Tobacco [...] traveled recently to another state outside of [place], [place], [place], [place], [place], [place], [place]? no o If yes, did you quarantine [...] yes, gather 3rd democrat insurance information Third Democrat Information: not applicable PCP: Darrel Tony MD [facility] MEDIC[facility] / Plan: [facility] ONE CARE / Product Type: *No Product type* / documented in this encounter Plan of Treatment Upcoming Encounters Date Type Department Care Team (Shirley Contact Info) Description 04/08/2024 11:10 AM EST Appointment Radiology Department - [address] [phone] 04/10/2024 9:30 AM EST Office Visit Endocrinology - [address] [phone] Trish Hyatt PA [address] [place] [address] 05/02/2024 2:00 PM EDT Office Visit Internal Medicine - [address] [address] Darrel Tony MD [address] [place] [address] documented as of this encounter Visit Diagnoses Not on filedocumented in this encounter Care Teams Utility Arborist Relationship Specialty Start Date End Date Darrel Tony MD [address] [place] [address] PCP - General Internal Medicine 11/22/21 documented as of this encounter
--- OUTSIDE RECORDS SUMMARY | 2024-03-29 11:18 | XMS_ITS | Encounter Summary ---
Author Organization [facility] Address [address] [place] [address] Care Team Providers Care Desktop Publishing Operator Name Role Phone Jaime Gonzales MD Primary Care Provider Unavail able Xenia Morfin MD Primary Care Provider Unavaila Manoj Hunter MD Primary Care Provider Un available Darrel Tony MD Primary Care Provider [phone] [phone] [facility], Pcp Primary Care Provider Unavailabl Stefan Landaverde Primary Care Provider Unav ailable Colette Anderson MD Primary Care Provider U navailDarrel Dugan MD Primary Care Provider +1 -[phone] Encounter Details Date Type Department Care Team Description 11/23/2011 Dental Hygiene Administrative Assistant Report Medical Records [address] [place] [address] Abel Rider PA-C Social History Tobacco Use Types Packs/Day Years Used Date Smoking Tobacco: Every Day Cigarettes 0.5 Alcohol Use Standard Drinks/Week Comments No 0 (1 standard drink = 0.6 oz pur e alcohol) Sex Assigned at Date Recorded Female 06/01/2020 9:48 AM E DT Job Start Date Occupation Industry Not on file Not on file Not on file documented as of this encounter Plan of Treatment Upcoming Encounters Date Type Specialty Care Team Description 10/17/2024 Dental Hygiene Administrative Assistant Report Abstract, Provider documented as of this encounter Visit Diagnoses Not on filedocumented in this encounter Care Teams Desktop Publishing Operator Relationship Specialty Start Date End Date Jaime Gonzales MD PCP - General 11/06/05 11/19/14 Xenia Morfin MD PCP - General Internal Medicine 11/20/14 09/01/15 Manoj Ragland MD PCP - General Internal Medicine 09/02/15 Darrel Tony MD [address] [place] [address] PCP - General Internal Medicine 02/18/16 07/05/16 [facility], Pcp [address] [place] [address] PCP - General Internal Medicine 07/06/16 11/13/17 Stefan Johnson [address] [place] [address] PCP - General Internal Medicine 11/14/17 02/25/18 Colette Anderson MD [address] [place] [address] PCP - General Internal Medicine 02/26/18 11/21/21 Darrel Tony MD [address] [place] [address] PCP - General Internal Medicine 11/22/21 documented as of this encounter
--- OUTSIDE RECORDS SUMMARY | 2024-03-29 11:18 | XMS_ITS | Encounter Summary ---
Author Organization [facility] Address [address] [place] [address] Care Team Providers Care Deep Fat Fry Cook Name Role Phone Colette Anderson MD Primary Care Provider U Darrel Castro MD Primary Care Provider +1 -[phone] Encounter Details Date Type Department Care Team Description 11/13/2019 Orders Only Adult Medicine B - [address] [address] Colette Anderson MD Social History Tobacco Use [...] have Coronavirus / COVID-19? No / Unsure 11/13/2019 1:26 PM EDT documented as of this encounter Plan of Treatment Upcoming Encounters Date Type Specialty Care Team Description 10/17/2024 [employer] Medic Report Abstract, Provider documented as of this encounter Visit Diagnoses Not on filedocumented in this encounter Care Teams Deep Fat Fry Cook Relationship Specialty Start Date End Date Colette Anderson MD PCP - General Internal Medicine 02/26/1811/06 Darrel Tony MD [address] [place] [address] PCP - General Internal Medicine 11/22/21 documented as of this encounter
--- OUTSIDE RECORDS SUMMARY | 2024-03-29 11:18 | XMS_ITS | Encounter Summary ---
Author Organization [facility] Address [address] [place] [address] Care Team Providers Care Sliver Cutter Name Role Phone Darrel Tony MD Primary Care Provider +1 -[phone] Encounter Details Date Type Department Care Team Description 07/05/2022 Food Storeroom Clerk Report Medical Records [address] [place] [address] Home Warner MD Social History Tobacco Use [...] Date Type Specialty Care Team Description 10/17/2024 Food Storeroom Clerk Report Abstract, Provider documented as of this encounter Visit Diagnoses Not on filedocumented in this encounter Care Teams Sliver Cutter Relationship Specialty Start Date End Date Darrel Tony MD [address] [place] [address] PCP - General Internal Medicine 11/22/21 documented as of this encounter
--- OUTSIDE RECORDS SUMMARY | 2024-03-29 11:18 | XMS_ITS | Encounter Summary ---
Author Organization [facility] Address [address] [place] [address] Care Team Providers Care Computer Application Developer Name Role Phone Darrel Tony MD Primary Care Provider +1 -[phone] Encounter Details Date Type Department Care Team Description 04/26/2022 Pt. Non Urgent Medical Question Adult Medicine [address] [address] Darrel Tony MD [address] [place] [address] Social History Tobacco Use Types Packs/Day Years [...] suspected to have Coronavirus/COVID-19? No / Unsure 04/12/2022 1:51 PM EST documented as of this encounter Miscellaneous Notes * Telephone Encounter - Sharon Javier M.A. - 04/26/2022 3:39 PM EDTFrom: Stefankiki Doyle To: Turdy Tony Sent: 04/26/2022 3:39 PM EDT Subject: F/u med review I need to schedule an appointment for early August please per Dr Tony. I tried to do it onlinebut it didn't give me any dates or times. Galina Doyle documented in this encounter Plan of Treatment Upcoming Encounters Date Type Specialty Care Team Description 10/17/2024 Portrait Studio Photographer Report Abstract, Provider documented as of this encounter Visit Diagnoses Not on filedocumented in this encounter Care Teams Computer Application Developer Relationship Specialty Start Date End Date Darrel Tony MD [address] [place] [address] PCP - General Internal Medicine 11/22/21 documented as of this encounter
--- OUTSIDE RECORDS SUMMARY | 2024-03-29 11:18 | XMS_ITS | Encounter Summary ---
Author Organization [facility] Address [address] [place] [address] Care Team Providers Care Rv Detailer Name Role Phone Colette Anderson MD Primary Care Provider U Darrel Castro MD Primary Care Provider +1 -[phone] Encounter Details Date Type Department Care Team Description 03/14/2021 Pt. Non Urgent Medical Question Endocrinology - [place] [address] [place] [address] Trish Hyatt PA-C [address] [place] [address] Social History Tobacco Use Types Packs/Day Years [...] encounter Miscellaneous Notes * Telephone Encounter - Seema Hummel - 03/14/2021 9:20 PM ESTFrom: Galina Doyle To: Alireza Hyatt Sent: 03/14/2021 5:18 PM EST Subject: One month follow up Trish wants me to make a one month follow up with her. My last appointment was televisit on the . I would like my next appointment televisit as well please. Galina Doyle documented in this encounter Plan of Treatment Upcoming Encounters Date Type Specialty Care Team Description 10/17/2024 Bulldozer Operator Report Abstract, Provider documented as of this encounter Visit Diagnoses Not on filedocumented in this encounter Care Teams Rv Detailer Relationship Specialty Start Date End Date Colette Anderson MD PCP - General Internal Medicine 02/26/1811/06 Darrel Tony MD [address] [place] [address] PCP - General Internal Medicine 11/22/21 documented as of this encounter
--- OUTSIDE RECORDS SUMMARY | 2024-03-29 11:18 | XMS_ITS | Encounter Summary ---
Author Organization [facility] Address [address] [place] [address] Care Team Providers Care Bottom Turner Name Role Phone Darrel Tony MD Primary Care Provider +1 -[phone] Encounter Details Date Type Department Care Team Description 03/16/2022 Pt. Non Urgent Medical Question Adult Medicine [address] [address] Darrel Tony MD [address] [place] [address] Social History Tobacco Use Types Packs/Day Years [...] Telephone Encounter - Sharon Javier M.A. - 03/16/2022 12:59 PM ESTFrom: Galina Doyle To: Trudy Tony Sent: 03/16/2022 12:54 PM EST Subject: Refill I put in for a refill and it says denied, may i ask why? Galina Doyle documented in this encounter Plan of Treatment Upcoming Encounters Date Type Specialty Care Team Description 10/17/2024 Track Layer Head Report Abstract, Provider documented as of this encounter Visit Diagnoses Not on filedocumented in this encounter Care Teams Bottom Turner Relationship Specialty Start Date End Date Darrel Tony MD [address] [place] [address] PCP - General Internal Medicine 11/22/21 documented as of this encounter
--- OUTSIDE RECORDS SUMMARY | 2024-03-29 11:18 | XMS_ITS | Encounter Summary ---
Author Organization [facility] Address [address] [place] [address] Care Team Providers Care Air Filler Name Role Phone Colette Anderson MD Primary Care Provider U Darrel Castro MD Primary Care Provider +1 -[phone] Encounter Details Date Type Department Care Team Description 11/27/2019 Pt. Non Urgent Medical Question Rheumatology - [address] [address] Home Alston MD Social History Tobacco Use Types Packs/Day [...] have Coronavirus / COVID-19? No / Unsure 11/20/2019 3:50 PM EDT documented as of this encounter Miscellaneous Notes * Telephone Encounter - Rahel Baker L.P.N. - 11/27/2019 12:59 PM EDTFrom: Galina Penny To: Home Alston MD Sent: 11/27/2019 12:39 PM EDT Subject: PREDNISONE DR ALSTON THE PREDNISONE IS NOT WORKING THIS TIME. I TOOK THEM DIRECTED AND MY PAIN HAS NOT SUBSIDED AT ALL, IN FACT IT HAS GOTTEN WORSE IN MY HANDS AND NUMB FINGER TIPS, BILATERAL KNEE PAIN, HIP PAIN ETC. I AM STILL TAKING THE PREDNISONE 2 A DAY FOR 1 MORE DAY THEN 1 A DAY FOR 4 DAYS. NORMALLY WITH A STER OID BLAST IT GIVES ME RELIEF, AT LEAST TEMPORARILY, BUT NOT THIS TIME. I DON'T HAVE ANYMORE CHART WRITER TIME SO I HAVE BEEN COMING INTO WORK STRUGGLING TO MAKE IT THROUGH THE DAY, LITERAL PLEASE HELP ME GALINA PENNY documented in this encounter Plan of Treatment Upcoming Encounters Date Type Specialty Care Team Description 10/17/2024 Solution Lead Report Abstract, Provider documented as of this encounter Visit Diagnoses Not on filedocumented in this encounter Care Teams Air Filler Relationship Specialty Start Date End Date Colette Anderson MD PCP - General Internal Medicine 02/26/1811/06 Darrel Tony MD [address] [place] [address] PCP - General Internal Medicine 11/22/21 documented as of this encounter
--- OUTSIDE RECORDS SUMMARY | 2024-03-29 11:18 | XMS_ITS | Encounter Summary ---
Author Organization [facility] Address [address] [place] [address] Care Team Providers Care Division Head Name Role Phone Darrel Tony MD Primary Care Provider +1 [phone] Reason for Visit * Reason Onset Date Comments refill request 05/12/2022 Encounter Details Date Type Department Care Team Description 05/12/2022 Refill Adult Medicine [address] [address] Darrel Tony MD [address] [place] [address] refill request Social History Tobacco Use Types [...] Telephone Encounter - Marcie Davenport M.A. - 05/12/2022 10:57 AM EDT Date of last office visit was 04/12/22. Pended appt for 05/13/22 Controlled substance contract and last issue date of medication reviewed. Patient is due for medication. Lab Results Component Value Date URBENZO NONE DETECTED 04/12/2022 UROPIATES POSITIVE 04/12/2022 UROXYCODONE POSITIVE 04/12/2022 URBARBITUATE NONE DETECTED 04/12/2022 PAINAMPHETAM NONE DETECTED 01/04/2021 PAINCOCAINE NONE DETECTED 01/04/2021 PAINCANNABIN NONE DETECTED 01/04/2021 04/25/2022 04/25/2022 1 Zolpidem Tartrate 10 Mg Tablet 30 30 Je Cam [id number] [facility] (1855) 0/0 0.50 [place] 2022 2022 1 Gabapentin 600 Mg Tablet 180 30 Ja Iraj [id number] [facility] (2068) 0/3 4.02 LME Medicaid [place] 04/13/2022 04/13/2022 1 Oxycodone Hcl (Ir) 5 Mg Tablet 84 28 Ka Gun [id number] [facility] (1855) 0/0 22.50 M[place] 03/23/2022 09/13/2021 1 Gabapentin 600 Mg Tablet 180 30 Ja Iraj [id number] [facility] (7608) 4/4 4.02 L[place] 03/16/2022 03/16/2022 1 Oxycodone Hcl (Ir) 5 Mg Tablet 84 28 Te Sva [id number] [facility] (5528) 0/0 22.50 [place] 03/07/2022 03/07/2022 1 Zolpidem Tartrate 10 Mg Tablet 30 30 Je Cam [id number] [facility] (1855) 0/1 0.50 L[place] 02/20/2022 09/13/2021 1 Gabapentin 600 Mg Tablet 180 30 Ja Iraj [id number] [facility] (7608) 3/4 4.02 L[place] 02/10/2022 02/10/2022 1 Oxycodone Hcl (Ir) 5 Mg Tablet 84 28 Ka Gun [id number] [facility] (9878) 0/0 22.50 [place] 01/19/2022 09/13/2021 1 Gabapentin 600 Mg Tablet 180 30 Ja Iraj [id number] [facility] (9288) 2/4 4.02 [place] 01/12/2022 01/12/2022 1 Oxycodone Hcl (Ir) 5 Mg Tablet 84 28 Ka Gun [id number] [facility] (7608) 0/0 22.50 [place] 12/13/2021 12/13/2021 1 Oxycodone Hcl (Ir) 5 Mg Tablet 84 28 Ka Gun [id number] [facility] (7608) 0/0 22.50 [place] 11/12/2021 11/12/2021 1 Oxycodone Hcl (Ir) 5 Mg Tablet 84 28 Te Sva [id number] [facility] (7608) 0/0 22.50 [place] 11/02/2021 08/11/2021 1 Zolpidem Tartrate 5 Mg Tablet 30 30 Je Cam [id number] [facility] (1855) 2/2 0.25 [place] 10/16/2021 09/13/2021 1 Gabapentin 600 Mg Tablet 180 30 Ja Iraj [id number] [facility] (7608) / 4.02 L[place] 10/14/2021 10/14/2021 1 Oxycodone Hcl (Ir) 5 Mg Tablet 84 28 [place] documented in this encounter Plan of Treatment Upcoming Encounters Date Type Specialty Care Team Description 10/17/2024 Planer Stone Report Abstract, Provider documented as of this encounter Visit Diagnoses Diagnosis Fibromyalgia Mylagia and myositis, unspecified documented in this encounter Care Teams Division Head Relationship Specialty Start Date End Date Darrel Tony MD [address] [place] [address] PCP - General Internal Medicine 11/22/21 documented as of this encounter
--- OUTSIDE RECORDS SUMMARY | 2024-03-29 11:18 | XMS_ITS | Encounter Summary ---
Author Organization [facility] Address [address] [place] [address] Care Team Providers Care Airborne Weapons Technical Manager Name Role Phone Colette Anderson MD Primary Care Provider U Darrel Castro MD Primary Care Provider +1 -[phone] Encounter Details Date Type Department Care Team Description 11/27/2019 Telephone Gastroenterology - [address] [place] [phone] Rufus Bernard MD [address] [place] [address] Social History Tobacco Use Types Packs/Day Years [...] encounter Miscellaneous Notes * Telephone Encounter - Kimberley Bird - 11/27/2019 7:55 AM EDT All attempts to reach patient to schedule colonoscopy have been exhausted. documented in this encounter Plan of Treatment Upcoming Encounters Date Type Specialty Care Team Description 10/17/2024 Fly Rail Operator Report Abstract, Provider documented as of this encounter Visit Diagnoses Not on filedocumented in this encounter Care Teams Airborne Weapons Technical Manager Relationship Specialty Start Date End Date Colette Anderson MD PCP - General Internal Medicine 02/26/1811/06 Darrel Tony MD [address] [place] [address] PCP - General Internal Medicine 11/22/21 documented as of this encounter
--- OUTSIDE RECORDS SUMMARY | 2024-03-29 11:18 | XMS_ITS | Encounter Summary ---
Author Organization [facility] Address [address] [place] [address] Care Team Providers Care Herbologist Name Role Phone Darrel Tony MD Primary Care Provider +1 -[phone] Reason for Visit * Reason Onset Date Comments Faxed Order 03/27/2024 [facility] Encounter Details Date Type Department Care Team (Late st Contact Info) Description 03/27/2024 [facility] [address] [place] [address] Darrel Tony MD [address] [place] [address] Faxed Order ([facility] ) Social History [...] - 03/27/2024 10:59 AM EST Orders from [facility] placed in Darrel Tony MD bin. Please complete and fax back to [phone]. Thank you. documented in this encounter Plan of Treatment Upcoming Encounters Date Type Department Care Team (Late st Contact Info) Description 04/08/2024 11:10 AM EST Appointment Radiology Department - [address] [phone] 04/10/2024 9:30 AM EST Office Visit Endocrinology - [address] [phone] Trish Hyatt PA [address] [place] [address] 05/02/2024 2:00 PM EDT Office Visit Internal Medicine - [address] [phone] Darrel Tony MD [address] [place] [address] documented as of this encounter Visit Diagnoses Not on filedocumented in this encounter Care Teams Herbologist Relationship Specialty Start Date End Date Darrel Tony MD [address] [place] [address] PCP - General Internal Medicine 11/22/21 documented as of this encounter
--- OUTSIDE RECORDS SUMMARY | 2024-03-29 11:18 | XMS_ITS | Clinical Summary ---
Author Organization [facility] Address [address] [address] Care Team Providers Care Appeals Assistant Name Role Phone Unavailable Primary Care Provider [...]
--- OUTSIDE RECORDS SUMMARY | 2024-03-29 11:18 | XMS_ITS | Encounter Summary ---
Author Organization [facility] Address [address] [place] [address] Care Team Providers Care Coal Sampler Name Role Phone Colette Anderson MD Primary Care Provider U Darrel Castro MD Primary Care Provider +1 -[phone] Encounter Details Date Type Department Care Team Description 11/07/2019 Pt. Non Urgent Medical Question Rheumatology - [address] [address] Home Warner MD Social History Tobacco Use [...] have Coronavirus / COVID-19? No / Unsure 10/29/2019 2:04 PM EDT documented as of this encounter Miscellaneous Notes * Telephone Encounter - Inder Ramos M.A. - 11/07/2019 1:37 PM EDTFrom: Galina Doyle To: Home Warner MD Sent: 11/07/2019 1:32 PM EDT Subject: Chronic pain Hi Dr Warner, I have been in pain and having back to back anxiety attacks for 3 days now with palpitations. My joints ( hands, knees, feet, legs, shoulders, arms and ankles) are impacting my ability to work. I'm in constant pain, I'm not sleeping at night, nodding at work. I have tossed this around for month s now but I would like to go out on a medical disability. I can't stand, barely walking, irritable, always tired. 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 Would like to come talk to you about this before my next appointment and before there's repercussions and actions taken by my supervisor trust accounts. documented in this encounter Plan of Treatment Upcoming Encounters Date Type Specialty Care Team Description 10/17/2024 Mat Packer Report Abstract, Provider documented as of this encounter Visit Diagnoses Not on filedocumented in this encounter Care Teams Coal Sampler Relationship Specialty Start Date End Date Colette Anderson MD PCP - General Internal Medicine 02/26/1811/06 Darrel Tony MD [address] [place] [address] PCP - General Internal Medicine 11/22/21 documented as of this encounter
--- OUTSIDE RECORDS SUMMARY | 2024-03-29 11:18 | XMS_ITS | Encounter Summary ---
Author Organization [facility] Address [address] [place] [address] Care Team Providers Care Quality Assurance Technician Name Role Phone Darrel Tony MD Primary Care Provider [phone] -[phone] Reason for Visit * Reason Onset Date Comments faxed order 03/26/2024 Encounter Details Date Type Department Care Team (Late st Contact Info) Description 03/26/2024 [facility]phone [facility] [address] [place] [address] Darrel Tony MD [address] [place] [address] faxed order Social History Tobacco Use Types [...] from 02/28 encounter. Needs this resent to [phone]. documented in this encounter Plan of Treatment Upcoming Encounters Date Type Department Care Team (Late st Contact Info) Description 04/08/2024 11:10 AM EST Appointment Radiology Department - [address] [phone] 04/10/2024 9:30 AM EST Office Visit Endocrinology - [address] [phone] Trish Hyatt PA [address] [place] [address] 05/02/2024 2:00 PM EDT Office Visit Internal Medicine - [address] [phone] Darrel Tony MD [address] [place] [address] documented as of this encounter Visit Diagnoses Not on filedocumented in this encounter Care Teams Quality Assurance Technician Relationship Specialty Start Date End Date Darrel Tony MD [address] [place] [address] PCP - General Internal Medicine 11/22/21 documented as of this encounter
--- OUTSIDE RECORDS SUMMARY | 2024-03-29 11:18 | XMS_ITS | Encounter Summary ---
Author Organization [facility] Address [address] [place] [address] Care Team Providers Care Sheet Fed Printer Name Role Phone Darrel Tony MD Primary Care Provider +1 -[phone] Encounter Details Date Type Department Care Team Description 04/14/2022 PNO Controlled Substance Contract Medical Records [address] [place] [address] Abstract, Provider Social History Tobacco Use Types [...] Date Type Specialty Care Team Description 10/17/2024 Crystal Inspector Report Abstract, Provider documented as of this encounter Visit Diagnoses Not on filedocumented in this encounter Care Teams Sheet Fed Printer Relationship Specialty Start Date End Date Darrel Tony MD [address] [place] [address] PCP - General Internal Medicine 11/22/21 documented as of this encounter
--- OUTSIDE RECORDS SUMMARY | 2024-03-29 11:18 | XMS_ITS | Encounter Summary ---
Author Organization [facility] Address [address] [place] [address] Care Team Providers Care Patrol Man Name Role Phone Colette Anderson MD Primary Care Provider U Darrel Castro MD Primary Care Provider +1 -[phone] Encounter Details Date Type Department Care Team Description 10/02/2019 Release of Information Medical Records [address] [place] [address] Abstract, Provider Social History Tobacco Use Types [...] Date Type Specialty Care Team Description 10/17/2024 Photocopying Equipment Mechanic Report Abstract, Provider documented as of this encounter Visit Diagnoses Not on filedocumented in this encounter Care Teams Patrol Man Relationship Specialty Start Date End Date Colette Anderson MD PCP - General Internal Medicine 02/26/1811/06 Darrel Tony MD [address] [place] [address] PCP - General Internal Medicine 11/22/21 documented as of this encounter
--- OUTSIDE RECORDS SUMMARY | 2024-03-29 11:18 | XMS_ITS | Encounter Summary ---
Author Organization [facility] Address [address] [place] [address] Care Team Providers Care Professional Benefits Sales Consultant Name Role Phone Colette Anderson MD Primary Care Provider U Darrel Castro MD Primary Care Provider +1 -[phone] Encounter Details Date Type Department Care Team Description 04/12/2021 CGM Report Medical Records [address] [place] [address] Abstract, Provider Social History Tobacco Use Types [...] Date Type Specialty Care Team Description 10/17/2024 Digital Printer Operator Report Abstract, Provider documented as of this encounter Visit Diagnoses Not on filedocumented in this encounter Care Teams Professional Benefits Sales Consultant Relationship Specialty Start Date End Date Colette Anderson MD PCP - General Internal Medicine 02/26/1811/06 Darrel Tony MD [address] [place] [id number] PCP - General Internal Medicine 11/22/21 documented as of this encounter
--- OUTSIDE RECORDS SUMMARY | 2024-03-29 11:18 | XMS_ITS | Encounter Summary ---
Author Organization [facility] Address [address] [place] [address] Care Team Providers Care Supervisor Toy Assembly Name Role Phone Darrel Tony MD Primary Care Provider +1 -[phone] Encounter Details Date Type Department Care Team Description 01/12/2022 Pt. Non Urgent Medical Question Adult Medicine [address] [address] Darrel Tony MD [address] [place] [address] Social History Tobacco Use Types Packs/Day Years [...] Telephone Encounter - Sharon Javier M.A. - 01/12/2022 10:31 AM ESTFrom: Galina Doyle To: Trudy Tony Sent: 01/12/2022 10:16 AM EST Subject: Telehealth appt today Just wondering if it's video or over the telephone today at 10:30? If video, should i do something prior to appt? Galina Doyle documented in this encounter Plan of Treatment Upcoming Encounters Date Type Specialty Care Team Description 10/17/2024 Tree Warden Report Abstract, Provider documented as of this encounter Visit Diagnoses Not on filedocumented in this encounter Care Teams Supervisor Toy Assembly Relationship Specialty Start Date End Date Darrel Tony MD [address] [place] [address] PCP - General Internal Medicine 11/22/21 documented as of this encounter
--- OUTSIDE RECORDS SUMMARY | 2024-03-29 11:18 | XMS_ITS | Encounter Summary ---
Author Organization [facility] Address [address] [place] [address] Care Team Providers Care Traffic Director Name Role Phone Colette Anderson MD Primary Care Provider U Darrel Castro MD Primary Care Provider +1 -[phone] Encounter Details Date Type Department Care Team Description 08/18/2019 Pt. Non Urgent Medical Question Nephrology - [place] [address] [place] [address] Wagner Herrera MD [address] [place] [address] Social History Tobacco Use Types Packs/Day Years [...] encounter Miscellaneous Notes * Telephone Encounter - Jannette Mcbride M.A. - 08/19/2019 3:28 PM EDT Please advise documented in this encounter Plan of Treatment Upcoming Encounters Date Type Specialty Care Team Description 10/17/2024 Burr Bench Operator Report Abstract, Provider documented as of this encounter Visit Diagnoses Not on filedocumented in this encounter Care Teams Traffic Director Relationship Specialty Start Date End Date Colette Anderson MD PCP - General Internal Medicine 02/26/1811/06 Darrel Tony MD [address] [place] [address] PCP - General Internal Medicine 11/22/21 documented as of this encounter
--- OUTSIDE RECORDS SUMMARY | 2024-03-29 11:18 | XMS_ITS | Encounter Summary ---
Author Organization [facility] Address [address] [place] [address] Care Team Providers Care Steel Sampler Name Role Phone Colette Anderson MD Primary Care Provider U Darrel Castro MD Primary Care Provider +1 -[phone] Reason for Visit * Reason Onset Date Comments Faxed Refill 05/21/2021 Encounter Details Date Type Department Care Team Description 05/21/2021 Refill Adult Medicine - [place] [address] [place] [address] Colette Anderson MD Faxed Refill Social History [...] was confirmed or suspected to have Coronavirus/COVID-19? Unable to assess 05/03/2021 8:10 AM EDT documented as of this encounter Plan of Treatment Upcoming Encounters Date Type Specialty Care Team Description 10/17/2024 Licensed Marine Engineer Report Abstract, Provider documented as of this encounter Visit Diagnoses Not on filedocumented in this encounter Care Teams Steel Sampler Relationship Specialty Start Date End Date Colette Anderson MD PCP - General Internal Medicine 02/26/1811/06 Darrel Tony MD [address] [place] [address] PCP - General Internal Medicine 11/22/21 documented as of this encounter
== END 2024-03-28 10:24 | disposition home or self-care (01) ==
LOC: HO.HOSX 10:23
PROVIDERS: Visit Provider Physician Assistant
DX: M25.561 Pain in right knee (principal); M17.11 Unilateral primary osteoarthritis, right knee
CPT/HCPCS: 73562; 99212

== ENCOUNTER 2024-04-03 07:51 | Day surgery (SDC) | payer OTHER, SELFPAY ==
[2024-03-06 12:03] VITALS: BP 119/72; PULSE 89; RESP 18; O2SAT 98; BMI 36.6
--- NOTE | 2024-03-06 12:27 | P.CONAN_ITS ---
Documented by User: Lilly Gonzalez NP 04/02/24 12:33 HPI - Anesthesia Eval Consult details Narrative: 58yo F for Right Knee Replacement Total, 04/03/24 No recent illness No CP/SOB within limits of pain GERD: ppi prn very rare, diet controlled DM: FBS ~ 56-76 PE 1998/Lupus anticoag: Cleared by [facility] heme. Will require thromboprophylaxis post op SLE: plaquinel Loose front upper teeth: Per patient, unable to have pulled until after d/t restrictions of total joint protocol. Aware of risks. 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 (Acute) Pain in the shins (Acute) Long-term use of hydroxychloroquine (Acute) Osteoarthritis of lumbar spine (Acute) Depression (Acute) Lupus anticoagulant disorder (Chronic) Fibromyalgia (Acute) Hypertension (Acute) Bilateral lumbar radiculopathy (Acute) Bilateral hip pain (Acute) Lupus (Acute) Carpal tunnel syndrome, bilateral (Acute) Diabetic neuropathy (Acute) Sacroiliac joint pain (Acute) Smoker (Acute) Bilateral knee swelling (Acute) Past Medical History Medical History (Updated 03/28/24 @ 10:32 by Juli Hair PA-C) Arthritis Chronic renal insufficiency Glaucoma Pulmonary embolism GERD (gastroesophageal reflux disease) Diabetes Lupus anticoagulant disorder HTN (hypertension) Depression Osteoarthritis Lumbar spondylosis Smoker Bilateral knee swelling Family History Family History Brother Diabetes Mother Hypertension Breast cancer, Onset Age: 49 Father Hypertension Maternal Grandmother Breast cancer Maternal Aunt Breast cancer, Onset Age: 53 Family history of problems with anesthesia: No Surgical History Surgical History History of esophagogastroduodenoscopy (EGD) H/O colonoscopy Hx of excision of mass Hx laparoscopic cholecystectomy Hx of tubal ligation Hx of section History of Problems with Anesthesia: No Social History Social History Household Members: Family and Children Household Members Other:: children Housing: House Are you a primary primary care nurse practitioner to a significant other at home: No Do you presently have visiting nurse or other home services: Yes ([facility] via [facility]) Alcohol intake: never Patient Tobacco Use Status: Current everyday Tobacco user Tobacco use type: Cigarette Cigarette Packs Per Day: 0.5 Cigarettes Per Day: 10 Years Smoked: 32 Patient Interested in Nicotine Replacement: Yes Use of substances other than those prescribed or required for medical reasons: No Have you been hit, kicked, punched, or otherwise hurt by someone within the past year? If so, by whom?: No Spiritual Healthcare Practices: none Buddhism Healthcare Practices: Worship Cultural Healthcare Practices: none Are you DNR?: No Advance Directives: No (daughter is primary contact) Advance Directives Information Provided: Yes (as above noted) Advance Directives on File: No Recently lost weight without trying: No Eating poorly because of decreased appetite: No Nutrition Risks: No Nutritional Risk Patient : No (n/a) FDLMP: n/a Poor oral hygiene: Yes (broken teeth/2 very loose teeth upper front/extracted teeth) service: No Current occupational status: unemployed and disabled Gender identity: Female Meds Allergies Allergy/AdvReac Type Severity Reaction Status Date / Time tramadol Allergy Severe severe rash Verified 03/28/24 09:34 trazodone AdvReac Severe hives Verified 03/28/24 09:34 Home Medications ?Medication ?Instructions ?Recorded ?Confirmed ?Last Taken ?Type metformin 1,000 mg tablet 1,000 mg PO BID 09/01/20 03/05/24 03/31/24 History clonidine HCl 0.2 mg tablet 0.2 mg PO BID PRN Anxiety 09/13/21 03/05/24 Unknown History insulin glargine 100 unit/mL (3 55 unit subcut BEDTIME 09/13/21 03/06/24 04/02/24 History mL) subcutaneous pen (Lantus Solostar U-100 Insulin) amlodipine 5 mg tablet 5 mg PO QAM 02/14/22 04/03/24 04/01/24 History hydrochlorothiazide 50 mg tablet 50 mg PO QAM 07/05/22 03/06/24 04/03/24 History quetiapine 50 mg tablet 50 mg PO BEDTIME 07/05/22 03/05/24 04/02/24 History insulin aspart U-100 100 unit/mL 2 - 8 unit subcut TIDAC 11/02/22 03/06/24 04/02/24 History (3 mL) subcutaneous pen bupropion HCl 150 mg 24 hr tablet, 150 mg PO QAM 05/09/23 03/06/24 04/02/24 History extended release cholecalciferol (vitamin D3) 50 50 mcg PO QAM 07/12/23 03/06/24 04/03/24 History mcg (2,000 unit) tablet oxycodone 10 mg tablet 5 mg PO BID PRN Pain, Mild 10/06/23 03/06/24 04/02/24 History amlodipine 2.5 mg tablet 2.5 mg PO QAM 02/26/24 04/03/24 04/01/24 History lisinopril 20 mg tablet 20 mg PO QAM 02/26/24 03/06/24 04/03/24 History terbinafine HCl 250 mg tablet 250 mg PO QAM 02/26/24 03/06/24 03/27/24 History Exam Height,Weight and Vital Signs: Height 5 ft 9 in Weight 112.491 kg Last Vital Signs Pulse 89 03/06/24 12:03 Resp 18 03/06/24 12:03 BP 119/72 03/06/24 12:03 Pulse Ox 98 03/06/24 12:03 O2 Del Method Room Air 03/06/24 12:03 Pertinent Lab Results Pertinent Lab Results: Lab Results 03/06/24 Range/Units 12:30 Nasal Screen MRSA (PCR) NEGATIVE (Negative) Nasal S. aureus Screen POSITIVE A (Negative) Nasal MRSA/S.aureus Interp SEE NOTE Narrative Narrative: EKG 01/2024 SR @ 84 ? LAE Anteroseptal infarct, age undetermined Airway Loose/Missing/Broken Teeth: Yes (#9&10) Assessment and Plan Assessment Anesthesia Assessment: Anesthesia Plan Discussed and PAT Visit Final Anesthetic Review Family History of Problems with Anesthesia: No History of Problems with Anesthesia: No Documented by User: Klaudia Hickman MD 04/03/24 08:40 [facility] Past Medical History Medical History (Updated 03/28/24 @ 10:32 by Juli Hair PA-C) Arthritis Chronic renal insufficiency Glaucoma Pulmonary embolism GERD (gastroesophageal reflux disease) Diabetes Lupus anticoagulant disorder HTN (hypertension) Depression Osteoarthritis Lumbar spondylosis Smoker Bilateral knee swelling Family History Family History Brother Diabetes Mother Hypertension Breast cancer, Onset Age: 49 Father Hypertension Maternal Grandmother Breast cancer Maternal Aunt Breast cancer, Onset Age: 53 Surgical History Surgical History History of esophagogastroduodenoscopy (EGD) H/O colonoscopy Hx of excision of mass Hx laparoscopic cholecystectomy Hx of tubal ligation Hx of section Social History Social History Household Members: Family and Children Household Members Other:: children Housing: House Are you a primary primary care nurse practitioner to a significant other at home: No Do you presently have visiting nurse or other home services: Yes ([facility]IC[facility] via [facility]) Alcohol intake: never Patient Tobacco Use Status: Current everyday Tobacco user Tobacco use type: Cigarette Cigarette Packs Per Day: 0.5 Cigarettes Per Day: 10 Years Smoked: 32 Patient Interested in Nicotine Replacement: Yes Use of substances other than those prescribed or required for medical reasons: No Have you been hit, kicked, punched, or otherwise hurt by someone within the past year? If so, by whom?: No Spiritual Healthcare Practices: none Buddhism Healthcare Practices: Worship Cultural Healthcare Practices: none Are you DNR?: No Advance Directives: No (daughter is primary contact) Advance Directives Information Provided: Yes (as above noted) Advance Directives on File: No Recently lost weight without trying: No Eating poorly because of decreased appetite: No Nutrition Risks: No Nutritional Risk Patient : No (n/a) FDLMP: n/a Poor oral hygiene: Yes (broken teeth/2 very loose teeth upper front/extracted teeth) service: No Current occupational status: unemployed and disabled Gender identity: Female Meds Allergies Allergy/AdvReac Type Severity Reaction Status Date / Time tramadol Allergy Severe severe rash Verified 03/28/24 09:34 trazodone AdvReac Severe hives Verified 03/28/24 09:34 Home Medications ?Medication ?Instructions ?Recorded ?Confirmed ?Last Taken ?Type metformin 1,000 mg tablet 1,000 mg PO BID 09/01/20 03/05/24 03/31/24 History clonidine HCl 0.2 mg tablet 0.2 mg PO BID PRN Anxiety 09/13/21 03/05/24 Unknown History insulin glargine 100 unit/mL (3 55 unit subcut BEDTIME 09/13/21 03/06/24 04/02/24 History mL) subcutaneous pen (Lantus Solostar U-100 Insulin) amlodipine 5 mg tablet 5 mg PO QAM 02/14/22 04/03/24 04/01/24 History hydrochlorothiazide 50 mg tablet 50 mg PO QAM 07/05/22 03/06/24 04/03/24 History quetiapine 50 mg tablet 50 mg PO BEDTIME 07/05/22 03/05/24 04/02/24 History insulin aspart U-100 100 unit/mL 2 - 8 unit subcut TIDAC 11/02/22 03/06/24 04/02/24 History (3 mL) subcutaneous pen bupropion HCl 150 mg 24 hr tablet, 150 mg PO QAM 05/09/23 03/06/24 04/02/24 History extended release cholecalciferol (vitamin D3) 50 50 mcg PO QAM 07/12/23 03/06/24 04/03/24 History mcg (2,000 unit) tablet oxycodone 10 mg tablet 5 mg PO BID PRN Pain, Mild 10/06/23 03/06/24 04/02/24 History amlodipine 2.5 mg tablet 2.5 mg PO QAM 02/26/24 04/03/24 04/01/24 History lisinopril 20 mg tablet 20 mg PO QAM 02/26/24 03/06/24 04/03/24 History terbinafine HCl 250 mg tablet 250 mg PO QAM 02/26/24 03/06/24 03/27/24 History Exam Airway Mallampati Class: II (top right front 2 teeth very loose, risk for lose) TM Dist: >3cm Heart: rrr Lungs: cta Assessment and Plan Final Anesthetic Review NPO: Yes ASA Class: III Final Preanesthetic Review: No Changes in Pt Med Stat, Meds/Allgs Chart Reviewed and Consent Obtained/Reviewed Patient Risk: Intermediate Procedure Risk: Intermediate Anesthetic Plan Anesthetic Plan: Spinal Disposition: Standard PACU
[2024-03-06 16:08] LABS: MRSA Nasal PCR NEGATIVE (Negative); SA Nasal PCR POSITIVE (Negative)
[2024-04-03] VITALS (25 sets, daily range): BP systolic 112–166; BP diastolic 71–101; PULSE 66–94; RESP 14–22; TEMP 36.1–36.4; O2SAT 97–100; BMI 36.3
--- NOTE | 2024-04-03 07:51 | MHC.SHP ---
Pre-Procedural Eval Section A - 24 Hr Update-Section A only Date of Service: 04/03/24 The patient is an INPATIENT: No Changes since office visit: No Cold of Flu in the past 2 weeks, No New Medical Problems, No Changes in Medication and No Patient answered all questions The patient has been examined within 24 hours of the surgical procedure. The History & Physical has been completed within 30 days and I have reviewed it.: Yes Section B - Complete if H&P > 30 days Chief Complaint: Unilateral primary osteoarthritis, right knee Allergies: Allergies Allergy/AdvReac Type Severity Reaction Status Date / Time tramadol Allergy Severe severe rash Verified 03/28/24 09:34 trazodone AdvReac Severe hives Verified 03/28/24 09:34 Plan I have reviewed the history and physical and performed a pertinent physical examination on my patient. No changes have occurred unless specified. Time Spent With Patient Time: Total time managing care of this patient today ____ minutes.
[2024-04-03 08:34] LABS: Hematocrit 37.3 % (37.0-47.0); Hemoglobin 12.3 g/dl (12.0-16.0); Mean Corpuscular Hemoglobin 29.2 pg (27.0-33.0); Mean Corpuscular Volume 88.6 fL (80.0-98.0); Mean Platelet Volume 10.3 fL (9.4-12.3); Platelet Count 210 X10*3/uL (160-400); Red Blood Count 4.21 X10*6/uL (4.20-5.50); Red Cell Distribution Width 14.9 % (11.0-16.0); White Blood Count 6.2 X10*3/uL (4.8-10.8)
[2024-04-03 08:35] LABS: Glucose, Whole Blood 130 mg/dL (60-115)
[2024-04-03] MEDS: Lactated Ringers 1,000 ML 100 ML IVCONT ×2 (08:42→17:11)
[2024-04-03 08:57] LABS: Anion Gap 12 (12-20); Blood Urea Nitrogen 14 mg/dL (9-16); Calcium 9.4 mg/dL (8.4-10.2); Carbon Dioxide 27 mmol/L (22-29); Chloride 107 mmol/L (96-108); Creatinine Clr Calc Pharmacy 103.7; Estimated Glomerular Filt Rate > 60; Glucose Fasting 120 mg/dL (60-99); Potassium 3.9 mmol/L (3.3-5.1); Sodium 142 mmol/L (135-145)
--- NOTE | 2024-04-03 11:15 | PM.OP ---
Brief Operative Note Date of Service: 04/03/24 Pre-op diagnosis: Right knee OA Post-op diagnosis: same Procedure: Right TKA Implants: [place] Triathlon posterior stabilized cemented 06/11/11s/32a Surgeon: Levar Stapleton MD Anesthesia: regional and spinal Was an Information Security Architect used for this Procedure?: Yes Information Security Architect: Juli Hair Estimated blood loss (mL): 50 IV fluids (mL): 1,000 Pathology: none sent Condition: stable Disposition: PACU
--- NOTE | 2024-04-03 11:22 | P.OP_ITS ---
Operative Note Operative Note Date of Service: 04/03/24 Narrative: Date of Service: 04/03/24 Pre-op diagnosis: Right knee OA Post-op diagnosis: same Procedure: Right TKA Implants: [place] Triathlon posterior stabilized cemented 06/10/12ps/32a Surgeon: Levar Stapleton MD Anesthesia: regional and spinal Was an Studio Director used for this Procedure?: Yes Studio Director: Juli Hair Estimated blood loss (mL): 50 IV fluids (mL): 1,000 Pathology: none sent Condition: stable Disposition: PACU Procedure in detail: The patient was brought to the operating room and prepped and draped in standard sterile fashion. A time-out was called to identify proper site proper procedure proper surgeon and IV antibiotics were administered. 1 g of IV tranexamic acid was administered. I began by making a midline incision to the retinaculum and performed a medial parapatellar arthrotomy. The patella was translated laterally and the knee was flexed up. The patella and lateral compartment were eburnated. I performed a small medial peel and resected the infrapatellar fat pad. [place]'s line was then used to drill my intramedullary femoral guide and my distal femur cut of 12 mm was made in 5 degrees of valgus while protecting the soft tissues. I then measured a # 5 femur and placed my cutting guide in 3deg of ER and made my anterior posterior and chamfer cuts protecting the soft tissues at all times. I then made my box but removing the PCL. Once I was satisfied with my cuts I turned my attention to the tibia. I removed the meniscus medially and laterally and , using an external cutting guide, in line with the tibial crest and the third ray, I made my distal tibial cut in 0 deg slope of while protecting the posterior soft tissues at all times. An extension block was used to confirm appropriate amount of bony resection. I then sized a #5 tibia and once I was satisfied that there was complete tibial coverage I placed my trial and with the trial femur in place took the knee through range of motion. I was satisfied with the extension and flexion as well as the balance at 0, 30 and 90 degrees. I then turned my attention to the patella where I removed 1 cm from the undersurface of the patella and then trialed a 32a patellar button. Again the knee was taken through range of motion I was satisfied with the tracking. I then prepared the tibia with a drill and punch. A femoral bone plug was placed and the knee was irrigated copiously. I then cemented the patella, tibia and femur in standard fashion. Axial compression zora clamp were used while the cement dried. Once the cement was hard on the back table all excess cement was removed and I trialed different inserts until I selected a #12insert. The final insert was placed and local TXA was administered. The knee was then closed with a running Quill suture, a 3 0 Vicryl and joaquin on the skin. Patient was then placed in sterile dressing and brought to recovery room in stable condition there were no known complications.
[2024-04-03 11:44] LABS: Glucose, Whole Blood 136 mg/dL (60-115)
[2024-04-03] MEDS: fentaNYL citrate/PF 100 MCG/2 ML VIAL 50 MCG IVPUSH ×4 (13:46→14:34)
[2024-04-03] MEDS: oxyCODONE HCl Immed Release 5 MG TABLET 10 MG PO ×2 (14:40→20:50)
[2024-04-03] MEDS: HYDROmorphone HCl 0.5 MG/0.5 ML SYRINGE IVPUSH (15:16)
[2024-04-03] MEDS: ceFAZolin Sodium/Dextrose,Iso 2 GM/50 ML PIGGYBACK IV (15:25)
[2024-04-03] MEDS: Gabapentin 300 MG CAPSULE 1200 MG PO ×2 (15:35→20:51)
[2024-04-03 16:34] LABS: Glucose, Whole Blood 137 mg/dL (60-115)
--- NOTE | 2024-04-03 16:54 | P.CONHOSP_ITS ---
History of Present Illness Data of Consult Service Date: 04/03/24 Primary Care Provider: Christine Gill MD HPI 58-year-old female patient with past medical history significant for lupus, history of smoking, status post , status post laparoscopic cholecystectomy admitted for elective right total knee arthroscopic surgery, postprocedure patient is complaining of acute pain radiating from right upper thigh towards the knee, not relieved with current pain medication patient denies headache, no dizziness, no nausea no vomiting no fevers no chills. Review of Systems 2 Review of Systems: General no headache no dizziness no fever chills. CVS no chest pain, no palpitation. Respiratory no cough, no sob Gastrointestinal no nausea no vomiting, no abdominal pain no urgency no frequency All other system reviewed and are negative. [facility] Medical History Arthritis Chronic renal insufficiency Glaucoma Pulmonary embolism GERD (gastroesophageal reflux disease) Diabetes Lupus anticoagulant disorder HTN (hypertension) Depression Osteoarthritis Lumbar spondylosis Smoker Bilateral knee swelling Family History Brother Diabetes Mother Hypertension Breast cancer, Onset Age: 49 Father Hypertension Maternal Grandmother Breast cancer Maternal Aunt Breast cancer, Onset Age: 53 Surgical History History of esophagogastroduodenoscopy (EGD) H/O colonoscopy Hx of excision of mass Hx laparoscopic cholecystectomy Hx of tubal ligation Hx of section Social History Household Members: Family Household Members Other:: children Housing: House Are you a primary care provider to a significant other at home: No Do you presently have visiting nurse or other home services: Yes (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) Alcohol intake: never Comment: all ordered meds give Patient Tobacco Use Status: Current everyday Tobacco user Tobacco use type: Cigarette Cigarette Packs Per Day: 0.5 Cigarettes Per Day: 10 Years Smoked: 32 service: No Current occupational status: unemployed and disabled Gender identity: Female Meds Allergies Allergy/AdvReac Type Severity Reaction Status Date / Time tramadol Allergy Severe severe rash Verified 03/28/24 09:34 trazodone AdvReac Severe hives Verified 03/28/24 09:34 Active Medications: Current Medications Acetaminophen (Acetaminophen 325 Mg Tablet) 650 mg PO Q6H PRN PRN Reason: Pain, Mild 1-3,fever,headache Amlodipine Besylate (Amlodipine Besylate 2.5 Mg Tablet) 2.5 mg PO DAILY [facility]; Protocol Amlodipine Besylate (Amlodipine Besylate 5 Mg Tablet) 5 mg PO DAILY [facility]; Protocol Bupropion HCl (Bupropion Hcl Xl 150 Mg Tab.Er.24h) 150 mg PO DAILY [facility] Celecoxib (Celecoxib 200 Mg Capsule) 200 mg PO BID [facility] Clonidine HCl (Clonidine Hcl 0.2 Mg Tablet) 0.2 mg PO BID PRN; Protocol PRN Reason: Anxiety Docusate Sodium (Docusate Sodium 100 Mg Capsule) 100 mg PO BID [facility] Enoxaparin Sodium (Enoxaparin Sodium 40 Mg/0.4 Ml Syringe) 40 mg SUBCUT Q24H [facility] Gabapentin (Gabapentin 300 Mg Capsule) 1,200 mg PO TID [facility] Last Admin: 04/03/24 15:35 Dose: 1,200 mg Hydrochlorothiazide (Hydrochlorothiazide 50 Mg Tablet) 50 mg PO DAILY [facility]; Protocol Hydromorphone HCl (Hydromorphone Hcl 0.5 Mg/0.5 Ml Syringe) 0.5 mg IVPUSH Q4H PRN; Protocol PRN Reason: Pain, Severe (Pain Scale 7-10) Last Admin: 04/03/24 15:16 Dose: 0.5 mg Hydroxychloroquine Sulfate (Hydroxychloroquine Sulfate 200 Mg Tablet) 200 mg PO BID [facility] Lactated Ringer's (Lr) 1,000 mls @ 100 mls/hr IVCONT .Q10H [facility] Acetaminophen (Ofirmev) 1,000 mg in 100 mls @ 400 mls/hr IV Q6H [facility] Stop: 04/04/24 05:14 Insulin Glargine (Insulin Glargine,Hum.Rec.Anlog 100 Unit/Ml 10 Ml Vial) 55 unit SUBCUT BEDTIME [facility] Insulin Human Lispro (Insulin Lispro 100 Unit/Ml 3 Ml Vial) 0 unit SUBCUT QIDACHS [facility]; Protocol Last Admin: 04/03/24 16:36 Dose: Not Given Ketorolac Tromethamine (Ketorolac Tromethamine 30 Mg/Ml Vial) 30 mg IVPUSH Q6H PRN PRN Reason: Pain, Moderate(Pain Scale 4-6) Lisinopril (Lisinopril 20 Mg Tablet) 20 mg PO DAILY [facility]; Protocol Magnesium Hydroxide (Milk Of Magnesia 30 Ml Oral.Susp) 30 ml PO DAILY PRN PRN Reason: Constipation Melatonin (Melatonin 3 Mg Tablet) 6 mg PO BEDTIME PRN PRN Reason: Insomnia Metformin HCl (Metformin Hcl 1,000 Mg Tablet) 1,000 mg PO BID [facility] Naloxone HCl (Naloxone Hcl 0.4 Mg/Ml Vial) 0.04 mg IVPUSH Q5M PRN PRN Reason: Excessive sedation or RR < 8 Non-Formulary Medication (Terbinafine Hcl) 250 mg PO QAM [facility] Ondansetron HCl (Ondansetron Hcl 4 Mg/2 Ml Vial) 4 mg IVPUSH Q8H PRN PRN Reason: Nausea and Vomiting Oxycodone HCl (Oxycodone Hcl Immed Release 5 Mg Tablet) 10 mg PO Q4H PRN PRN Reason: Pain, Moderate(Pain Scale 4-6) Last Admin: 04/03/24 14:40 Dose: 10 mg Oxycodone HCl (Oxycodone Hcl Er 10 Mg Tab.Er.12h) 10 mg PO BID [facility] Quetiapine Fumarate (Quetiapine Fumarate 50 Mg Tablet) 50 mg PO BEDTIME [facility] Sodium Chloride (0.9 % Sodium Chloride Flush 3 Ml Syringe) 3 ml IVFLUSH QSHIFT [facility] Tizanidine HCl (Tizanidine Hcl 4 Mg Tablet) 4 mg PO TID PRN PRN Reason: muscle spasticity Triamcinolone Acetonide (Triamcinolone Acet 0.1 % Oint 15 Gm Tube) 1 appl TOPICAL BID [facility] Vitamin D (Cholecalciferol (Vitamin D3) 25 Mcg Tablet) 50 mcg PO DAILY [facility] Home Medications ?Medication ?Instructions ?Recorded ?Confirmed ?Last Taken ?Type metformin 1,000 mg tablet 1,000 mg PO BID 09/01/20 03/05/24 03/31/24 History clonidine HCl 0.2 mg tablet 0.2 mg PO BID PRN Anxiety 09/13/21 03/05/24 Unknown History insulin glargine 100 unit/mL (3 55 unit subcut BEDTIME 09/13/21 03/06/24 04/02/24 History mL) subcutaneous pen (Lantus Solostar U-100 Insulin) amlodipine 5 mg tablet 5 mg PO QAM 02/14/22 04/03/24 04/01/24 History hydrochlorothiazide 50 mg tablet 50 mg PO QAM 07/05/22 03/06/24 04/03/24 History quetiapine 50 mg tablet 50 mg PO BEDTIME 07/05/22 03/05/24 04/02/24 History insulin aspart U-100 100 unit/mL 2 - 8 unit subcut TIDAC 11/02/22 03/06/24 04/02/24 History (3 mL) subcutaneous pen bupropion HCl 150 mg 24 hr tablet, 150 mg PO QAM 05/09/23 03/06/24 04/02/24 History extended release cholecalciferol (vitamin D3) 50 50 mcg PO QAM 07/12/23 03/06/24 04/03/24 History mcg (2,000 unit) tablet oxycodone 10 mg tablet 5 mg PO BID PRN Pain, Mild 10/06/23 03/06/24 04/02/24 History amlodipine 2.5 mg tablet 2.5 mg PO QAM 02/26/24 04/03/24 04/01/24 History lisinopril 20 mg tablet 20 mg PO QAM 02/26/24 03/06/24 04/03/24 History terbinafine HCl 250 mg tablet 250 mg PO QAM 02/26/24 03/06/24 03/27/24 History insulin glargine 100 unit/mL (3 70 unit subcut BEDTIME 04/03/24 04/03/24 Unknown History mL) subcutaneous pen (Lantus Solostar U-100 Insulin) mirtazapine 30 mg tablet 30 mg PO BEDTIME 04/03/24 Unknown History ondansetron 4 mg disintegrating 4 mg Q8H 04/03/24 Unknown History tablet oxycodone 10 mg tablet 5 mg PO Q8H PRN severe pain 04/03/24 Unknown History Physical Exam 2 Vital Signs and Narrative: Vital Signs: Last Vital Signs Temp 97.6 F 04/03/24 16:41 Pulse 81 04/03/24 16:41 Resp 19 04/03/24 16:41 BP 166/99 H 04/03/24 16:41 Pulse Ox 97 04/03/24 16:41 O2 Del Method Room Air 04/03/24 16:41 O2 Flow Rate 2 04/03/24 12:01 BMI result Body Mass Index 36.3 Const: Other: General moaning with pain Neck supple no JVD. CVS regular rate rhythm, Respiratory lungs clear to auscultation, no respiratory distress, no wheeze, no rhonchi. Gastrointestinal abdomen soft, non tender, bowel sounds audible, Extremities right knee dressing in place Neuro non focal , moving all 4 extremity speech clear. Skin no rash Psych appropriate affect Results Labs 04/03/24 08:27 04/03/24 08:27 Labs: Laboratory Results - last 24 hr 04/03/24 04/03/24 04/03/24 08:27 08:31 11:30 MCV 88.6 MCH 29.2 MCHC 33.0 RDW 14.9 Plt Count 210 MPV 10.3 Absolute Nucleated RBC 0.000 Nucleated RBC % (auto) 0.0 Anion Gap 12 Estim Creat Clear Calc 103.7 Estimated GFR > 60 POC Glucose 130 H 136 H Fasting Glucose 120 H Calcium 9.4 Blood Type B Positive Antibody Screen NEGATIVE 04/03/24 16:29 MCV MCH MCHC RDW Plt Count MPV Absolute Nucleated RBC Nucleated RBC % (auto) Anion Gap Estim Creat Clear Calc Estimated GFR POC Glucose 137 H Fasting Glucose Calcium Blood Type Antibody Screen Assessment and Plan (1) Osteoarthritis of right knee: Status: Acute (2) Lower back pain: Status: Acute (3) Hypertension: Status: Acute (4) Lupus: Status: Acute Plan 58-year-old female patient with past medical history of lupus admitted for elective right knee total arthroplasty S/P RT TKA pod #0 Intractable pain continue OxyContin/oxycodone/Celebrex/IV Tylenol Will increase IV Dilaudid 1 mg q.4 hours as needed Continue stool softeners/incentive spirometry Anticoagulation as per ortho Hypertension continue home medication lisinopril/hydrochlorothiazide/Norvasc 7.5 mg BP 166/99 likely due to pain, follow BP and adjust medication as indicated Diabetes mellitus on insulin change diet to diabetic, continue Lantus reduced dose from 55 to 20 units at bedtime , continue insulin sliding scale and monitor point of care blood sugar closely Chronic lower back pain being followed by pain management. 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
[2024-04-03] MEDS: HYDROmorphone HCl 0.5 MG/0.5 ML SYRINGE 1 MG IVPUSH (17:09)
[2024-04-03] MEDS: lisinopriL 20 MG TABLET PO (17:10)
[2024-04-03] MEDS: amLODIPine Besylate 2.5 MG TABLET PO (17:10)
[2024-04-03] MEDS: Cholecalciferol (Vitamin D3) 25 MCG TABLET 50 MCG PO (17:10)
[2024-04-03] MEDS: amLODIPine Besylate 5 MG TABLET PO (17:10)
[2024-04-03] MEDS: Acetaminophen 1,000 MG/100 ML PIGGYBACK 400 MG IV ×2 (17:10→23:46)
[2024-04-03] MEDS: buPROPion HCl XL 150 MG TAB.ER.24H PO (17:10)
[2024-04-03] MEDS: Enoxaparin Sodium 40 MG/0.4 ML SYRINGE SUBCUT (17:13)
[2024-04-03] MEDS: 0.9 % Sodium Chloride Flush 3 ML SYRINGE IVFLUSH (17:25)
--- NOTE | 2024-04-03 19:00 | PHA.MEDREC ---
Addendum entered by Rigoberto Ordoñez [facility] 04/03/24 19:19: med rec reviewed Original Note: Pharmacy Consult ? Medication Reconciliation Pharmacy has reviewed the medication reconciliation done by nursing. Spoke to patients daughter at bedside to confirm med list. Daughter had a list of patients medications on her phone. Daughter confirmed Lantus Solostar is 65 units at bedtime, and Novolog is 2-8 units TID per sliding scale.
[2024-04-03] MEDS: Docusate Sodium 100 MG CAPSULE PO (20:50)
[2024-04-03] MEDS: Acetaminophen 325 MG TABLET 650 MG PO (20:50)
[2024-04-03] MEDS: oxyCODONE HCl ER 10 MG TAB.ER.12H PO (20:50)
[2024-04-03] MEDS: Celecoxib 200 MG CAPSULE PO (20:51)
[2024-04-03] MEDS: metFORMIN HCl 1,000 MG TABLET 1000 MG PO (20:51)
[2024-04-03] MEDS: QUEtiapine Fumarate 50 MG TABLET PO (20:51)
[2024-04-03] MEDS: Hydroxychloroquine Sulfate 200 MG TABLET PO (20:53)
[2024-04-03] MEDS: Insulin Glargine,Hum.rec.anlog 100 UNIT/ML 10 ML VIAL 20 UNIT SUBCUT (20:53)
[2024-04-03] MEDS: Insulin Lispro 100 UNIT/ML 3 ML VIAL SUBCUT (20:53)
[2024-04-03 21:03] LABS: Glucose, Whole Blood 170 mg/dL (60-115)
[2024-04-04] VITALS: BP 140/83; PULSE 78; RESP 18; TEMP 36.2; O2SAT 98
[2024-04-04] MEDS: Lactated Ringers 1,000 ML 100 ML IVCONT (02:27)
[2024-04-04 04:00] VITALS: BP 132/82; PULSE 77; RESP 18; TEMP 36.5; O2SAT 98
[2024-04-04] MEDS: Acetaminophen 1,000 MG/100 ML PIGGYBACK 400 MG IV (04:22)
[2024-04-04] MEDS: oxyCODONE HCl Immed Release 5 MG TABLET 10 MG PO ×2 (04:47→13:10)
[2024-04-04 05:38] LABS: MANUAL DIFF FLAG NO
[2024-04-04 05:44] LABS: Basophils Percent Auto 0.3 % (0-2); Eosinophils Percent Auto 0.3 % (0-4); Hematocrit 33.8 % (37.0-47.0); Hemoglobin 11.1 g/dl (12.0-16.0); Imm Gran Abs Auto 0.03 X10*3/uL (0.00-0.03); Imm Gran Pct Auto 0.4 % (0.0-0.4); Lymphocytes Absolute Auto 1.7 X10*3/uL (1.2-4.9); Lymphocytes Percent Auto 22.9 % (20-40); Mean Corpuscular HGB Conc 32.8 g/dl (31.0-35.0); Mean Corpuscular Hemoglobin 29.1 pg (27.0-33.0); Mean Corpuscular Volume 88.5 fL (80.0-98.0); Mean Platelet Volume 10.7 fL (9.4-12.3); Monocytes Absolute Auto 0.7 X10*3/uL (0.1-1.2); Monocytes Percent Auto 9.1 % (2-11); Neutrophils Absolute Auto 4.8 x10*3/uL (2.0-8.3); Platelet Count 174 X10*3/uL (160-400); Red Blood Count 3.82 X10*6/uL (4.20-5.50); Red Cell Distribution Width 14.8 % (11.0-16.0); White Blood Count 7.2 X10*3/uL (4.8-10.8)
[2024-04-04 06:01] LABS: Anion Gap 13 (12-20); Blood Urea Nitrogen 14 mg/dL (9-16); Calcium 9.3 mg/dL (8.4-10.2); Carbon Dioxide 22 mmol/L (22-29); Chloride 106 mmol/L (96-108); Estimated Glomerular Filt Rate > 60; Glucose Fasting 121 mg/dL (60-99); Sodium 137 mmol/L (135-145)
[2024-04-04 07:24] VITALS: BP 117/72; PULSE 83; RESP 16; TEMP 36.4; O2SAT 97
[2024-04-04 07:41] LABS: Glucose, Whole Blood 173 mg/dL (60-115)
[2024-04-04] MEDS: Gabapentin 300 MG CAPSULE 1200 MG PO (08:12)
[2024-04-04] MEDS: oxyCODONE HCl ER 10 MG TAB.ER.12H PO (08:13)
[2024-04-04] MEDS: Docusate Sodium 100 MG CAPSULE PO (08:13)
[2024-04-04] MEDS: amLODIPine Besylate 5 MG TABLET PO (08:13)
[2024-04-04] MEDS: amLODIPine Besylate 2.5 MG TABLET PO (08:13)
[2024-04-04] MEDS: Celecoxib 200 MG CAPSULE PO (08:13)
[2024-04-04] MEDS: Cholecalciferol (Vitamin D3) 25 MCG TABLET 50 MCG PO (08:13)
[2024-04-04] MEDS: lisinopriL 20 MG TABLET PO (08:13)
[2024-04-04] MEDS: metFORMIN HCl 1,000 MG TABLET 1000 MG PO (08:14)
[2024-04-04] MEDS: Insulin Lispro 100 UNIT/ML 3 ML VIAL SUBCUT (08:14)
[2024-04-04] MEDS: 0.9 % Sodium Chloride Flush 3 ML SYRINGE IVFLUSH (08:14)
[2024-04-04] MEDS: buPROPion HCl XL 150 MG TAB.ER.24H PO (08:14)
[2024-04-04] MEDS: Hydroxychloroquine Sulfate 200 MG TABLET PO (08:24)
--- NOTE | 2024-04-04 09:15 | P.DS_ITS ---
DS: Providers Provider Date of Service: 04/04/24 Date of discharge: 04/04/24 Primary care physician: Christine Gill MD Consults: 04/03/24 14:20 Consult to Hospitalist Routine Comment: Consulting Provider: [facility] – [place] Hospitalists Reason For Exam: Routine medical mangement DS: Diagnosis Discharge Diagnosis (1) Osteoarthritis of right knee: Status: Acute DS: Summary Hospital Course Hospital Course: The patient underwent a successful right total knee arthroplasty on 04/04/24, was transferred to PACU and then to the floor to recover. During their stay, their vitals were stable, afebrile at 97.6 . Labs were unremarkable , H/H 11.1/33.8 . POD 1 she was started on lovenox for DVT ppx, they also received Physical Therapy services twice a day. Physical therapy should include gait training, ROM to tolerance and quad strength. He is WBAT. Prior to discharge, his dressing was changed, incision clean dry and intact, new Aquacel dressing applied. The Aquacel dressing should remain intact and dry at all times. Any concerns with the dressing, please contact orthopedic office. No showering. The plan is to be discharged home with vna Time Attestation Discharge Coordination Time (in mins): 30 Quality: Safe Use of Opioids Does Pt have an Active Cancer Diagnosis on the Problem List?: No Quality: Stroke Does the patient have a stroke diagnosis?: No Physical Exam Vital Signs: Vital Signs: Last Vital Signs Temp 97.6 F 04/04/24 07:24 Pulse 83 04/04/24 07:24 Resp 16 04/04/24 07:24 BP 117/72 04/04/24 07:24 Pulse Ox 97 04/04/24 07:24 O2 Del Method Room Air 04/04/24 07:24 O2 Flow Rate 2 04/03/24 12:01 BMI result Body Mass Index 36.3 Extrem: Other: right knee bandage clean dry and intact . Calf supple non tender. She is able to dorsi flex and plantar flex. NVI DS: Data Data Completed and Pending Pending studies at discharge: Pending at discharge 04/03/24 10:08 Surgical [PTH] Routine Labs on day of discharge: Laboratory Results - last 24 hr 04/03/24 04/03/24 04/03/24 11:30 16:29 20:44 WBC RBC Hgb Hct MCV MCH MCHC RDW Plt Count MPV Immature Gran % (Auto) Neut % (Auto) Lymph % (Auto) [place] % (Auto) Eos % (Auto) Baso % (Auto) Lymph # (Auto) [place] # (Auto) Eos # (Auto) Baso # (Auto) Abs Immat Gran (auto) Absolute Neuts (auto) Absolute Nucleated RBC Nucleated RBC % (auto) Sodium Potassium Chloride Carbon Dioxide Anion Gap BUN Creatinine Estim Creat Clear Calc Estimated GFR POC Glucose 136 H 137 H 170 H Fasting Glucose Calcium 04/04/24 04/04/24 05:27 07:29 WBC 7.2 RBC 3.82 L Hgb 11.1 L Hct 33.8 L MCV 88.5 MCH 29.1 MCHC 32.8 RDW 14.8 Plt Count 174 MPV 10.7 Immature Gran % (Auto) 0.4 Neut % (Auto) 67.0 Lymph % (Auto) 22.9 [place] % (Auto) 9.1 Eos % (Auto) 0.3 Baso % (Auto) 0.3 Lymph # (Auto) 1.7 [place] # (Auto) 0.7 Eos # (Auto) 0.0 Baso # (Auto) 0.0 Abs Immat Gran (auto) 0.03 Absolute Neuts (auto) 4.8 Absolute Nucleated RBC 0.000 Nucleated RBC % (auto) 0.0 Sodium 137 Potassium 4.0 Chloride 106 Carbon Dioxide 22 Anion Gap 13 BUN 14 Creatinine 0.74 Estim Creat Clear Calc 113.0 Estimated GFR > 60 POC Glucose 173 H Fasting Glucose 121 H Calcium 9.3 Discharge Plan Discharge Patient Disposition: Home Health Service Referrals: [facility] [Outside] - 1 Week Juli Hair PA-C [Physician Classics Professor] - 2 Weeks (04/18/24 12:45 [facility] – [place] Orthopedic Surgeons Juli Hair PA-C) Discharge Medications: New celecoxib 200 mg Capsule 200 mg PO BID 30 Days Qty: 60 0RF acetaminophen 325 mg Tablet 650 mg PO Q6H PRN (Reason: Pain, Mild 1-3,Fever,Headache) 30 Days Qty: 240 0RF docusate sodium 100 mg Capsule 100 mg PO BID 4 Days Qty: 8 0RF oxycodone 5 mg Tablet 10 mg PO Q4H PRN (Reason: Pain, Moderate(Pain Scale 4-6)) 7 Days Qty: 42 0RF Rx Instructions: Partial Fill upon patient request. enoxaparin 40 mg/0.4 mL Syringe 40 mg subcut Q24H 42 Days Qty: 16.8 0RF Continued insulin aspart U-100 100 unit/mL (3 mL) insulin pen 2 - 8 unit subcut TIDAC diclofenac sodium 1 % gel 4 g topical QID Qty: 100 2RF Rx Instructions: apply to single knee, ankle, foot; for foot includes sole/toes/top of foot (DME) walker Misc See Rx Instructions .ROUTE .MEDSUPPLY Qty: 1 0RF Rx Instructions: Folding front wheeled walker triamcinolone acetonide 0.1 % ointment 1 appl topical BID Qty: 80 1RF tizanidine 4 mg tablet 4 mg PO TID PRN (Reason: muscle spasticity) Qty: 90 1RF Rx Instructions: No driving while taking this medication. May cause drowsiness. Do not take with alcohol or other REGISTERED PHYSICAL THERAPIST Depressants. gabapentin 600 mg tablet 1,200 mg PO TID Qty: 168 3RF hydroxychloroquine 200 mg tablet 200 mg PO BID Qty: 180 1RF mirtazapine 30 mg tablet 30 mg PO BEDTIME ondansetron 4 mg tablet,disintegrating 4 mg Q8H PRN (Reason: Nausea And Vomiting) insulin glargine [Lantus Solostar U-100 Insulin] 100 unit/mL (3 mL) insulin pen 65 unit subcut BEDTIME metformin 1,000 mg tablet 1,000 mg PO BID clonidine HCl 0.2 mg tablet 0.2 mg PO BID PRN (Reason: Anxiety) amlodipine 5 mg tablet 5 mg PO QAM quetiapine 50 mg tablet 50 mg PO BEDTIME hydrochlorothiazide 50 mg tablet 50 mg PO QAM bupropion HCl 150 mg tablet extended release 24 hr 150 mg PO QAM cholecalciferol (vitamin D3) 50 mcg (2,000 unit) tablet 50 mcg PO QAM amlodipine 2.5 mg tablet 2.5 mg PO QAM lisinopril 20 mg tablet 20 mg PO QAM terbinafine HCl 250 mg tablet 250 mg PO QAM Discontinued oxycodone 10 mg tablet 5 mg PO Q8H PRN (Reason: severe pain) Discharge Orders: Discharge Order (Routine); Ordered 04/04/24 Ordered By: Freddie Reid Diet: Regular diet Activity on Discharge: Use cane or walker Activity Restrictions/Additional Instructions: Physical Therapy for Total knee arthroplasty: WBAT, gait training, ROM 0-12, quad strength * Limit stair climbing * No showering, no tub bath-keep dressing clean, dry and intact * No driving x6 weeks * Lovenox qd x6 weeks * Follow up with [facility] – [place] Orthopedics in 2 weeks: Print Language: [place]
--- NOTE | 2024-04-04 09:31 | MHC.CM.PN ---
Addendum entered by Bessy Funes RN 04/04/24 09:53: PT rec home w/ services. Daughter will transport home ~2pm. RN aware. Original Note: Patient lives in a home w/ and adult children. Ambulates w/ rollator. assists w/ ADL's PRN. No current services. PCP Darrel Tony MD No HCP. CM provided education and offered assistance. Patient declined at this time. DP: Goal is home w/ services via [facility]. PT eval pending. Patient's daughter, who is a nurse, will stay w/ patient temporarily while recovering. Patient plans to stay on first floor of the home and says her has this set up for her. Anticipate dc today. Daughter will transport.
[2024-04-04] MEDS: HYDROmorphone HCl 0.5 MG/0.5 ML SYRINGE 1 MG IVPUSH (09:51)
--- NOTE | 2024-04-04 10:19 | P.F2F_ITS ---
Service Date Service Date: 04/04/24 Encounter Date of encounter: 04/04/24 Reasons for Services Signs and symptoms assessed: Weakness, poor balance, poor gait mechanics Reason for physical therapy: home safety and mobility, therapeutic exercises, restore joint function, gait/transfer training, ADL training and energy conservation Reason for occupational therapy: home safety and mobility, therapeutic exercises, restore joint function, gait/transfer training, ADL training and energy conservation Overseeing Care: Levar Stapleton Homebound: Leaving the home is medically contraindicated at this time without the asist of a device and/or another person due th the listed conditions above and below. Reason homebound: unsteady gait / fall risk, pain with ambulation, poor balance / fall risk and unable to drive Homebound supporting statement: Pt. is considered home bound due to recent surgery. Unable to drive, poor balance, poor gait mechanics. Certification: Based on the above findings, I certify that this patient is confined to the home and needs intermittent correction care, physical therapy and/or speech therapy, or continues to need occupational therapy. The patient is under my care, and I have initiated the establishment of the plan of care. The patient will be followed by a physician who will periodically review the plan of care. Time Spent With Patient Time: Total time managing care of this patient today ____ minutes.
--- NOTE | 2024-04-04 11:10 | P.PNIM_ITS ---
Subjective Subjective Date of Service: 04/04/24 Interval History: Feeling significantly better good pain control No acute events overnight, tolerating diet, no fevers, no chills, no lightheadedness or dizziness. Review of Systems All other system reviewed and are negative Physical Exam 2 Vital Signs: Vital Signs: Last Vital Signs Temp 97.6 F 04/04/24 07:24 Pulse 83 04/04/24 07:24 Resp 16 04/04/24 07:24 BP 117/72 04/04/24 07:24 Pulse Ox 97 04/04/24 07:24 O2 Del Method Room Air 04/04/24 07:24 O2 Flow Rate 2 04/03/24 12:01 BMI result Body Mass Index 36.3 Const: Other: General awake alert in no acute distress Neck supple no JVD. CVS regular rate rhythm, Respiratory lungs clear to auscultation, no respiratory distress, no wheeze, no rhonchi. Gastrointestinal abdomen soft, non tender, bowel sounds audible, Extremities right knee dressing in place Neuro non focal , moving all 4 extremity speech clear. Skin no rash Psych appropriate affect Objective Data Active Medications Acetaminophen (Acetaminophen 325 Mg Tablet) 650 mg PO Q6H PRN PRN Reason: Pain, Mild 1-3,fever,headache Last Admin: 04/03/24 20:50 Dose: 650 mg Documented By: EUNICE Amlodipine Besylate (Amlodipine Besylate 2.5 Mg Tablet) 2.5 mg PO DAILY [facility]; Protocol Last Admin: 04/04/24 08:13 Dose: 2.5 mg Documented By: DINESH Amlodipine Besylate (Amlodipine Besylate 5 Mg Tablet) 5 mg PO DAILY [facility]; Protocol Last Admin: 04/04/24 08:13 Dose: 5 mg Documented By: DINESH Bupropion HCl (Bupropion Hcl Xl 150 Mg Tab.Er.24h) 150 mg PO DAILY [facility] Last Admin: 04/04/24 08:14 Dose: 150 mg Documented By: DINESH Celecoxib (Celecoxib 200 Mg Capsule) 200 mg PO BID [facility] Last Admin: 04/04/24 08:13 Dose: 200 mg Documented By: DINESH Clonidine HCl (Clonidine Hcl 0.2 Mg Tablet) 0.2 mg PO BID PRN; Protocol PRN Reason: Anxiety Docusate Sodium (Docusate Sodium 100 Mg Capsule) 100 mg PO BID [facility] Last Admin: 04/04/24 08:13 Dose: 100 mg Documented By: DINESH Enoxaparin Sodium (Enoxaparin Sodium 40 Mg/0.4 Ml Syringe) 40 mg SUBCUT Q24H [facility] Last Admin: 04/03/24 17:13 Dose: 40 mg Documented By: JULIENNE Gabapentin (Gabapentin 300 Mg Capsule) 1,200 mg PO TID [facility] Last Admin: 04/04/24 08:12 Dose: 1,200 mg Documented By: DINESH Hydrochlorothiazide (Hydrochlorothiazide 50 Mg Tablet) 50 mg PO DAILY [facility]; Protocol Last Admin: 04/03/24 19:08 Dose: Not Given Documented By: JULIENNE Non-Admin Reason: Med Not Available Hydromorphone HCl (Hydromorphone Hcl 0.5 Mg/0.5 Ml Syringe) 1 mg IVPUSH Q3H PRN; Protocol PRN Reason: Pain, Severe (Pain Scale 7-10) Last Admin: 04/04/24 09:51 Dose: 1 mg Documented By: DINESH Hydroxychloroquine Sulfate (Hydroxychloroquine Sulfate 200 Mg Tablet) 200 mg PO BID [facility] Last Admin: 04/04/24 08:24 Dose: 200 mg Documented By: DINESH Lactated Ringer's (Lr) 1,000 mls @ 100 mls/hr IVCONT .Q10H [facility] Last Admin: 04/04/24 02:27 Dose: 100 mls/hr Documented By: ZOE Insulin Glargine (Insulin Glargine,Hum.Rec.Anlog 100 Unit/Ml 10 Ml Vial) 20 unit SUBCUT BEDTIME [facility] Last Admin: 04/03/24 20:53 Dose: 20 unit Documented By: EUNICE Insulin Human Lispro (Insulin Lispro 100 Unit/Ml 3 Ml Vial) 0 unit SUBCUT QIDACHS [facility]; Protocol Last Admin: 04/04/24 08:14 Dose: 2 unit Documented By: DINESH Lisinopril (Lisinopril 20 Mg Tablet) 20 mg PO DAILY [facility]; Protocol Last Admin: 04/04/24 08:13 Dose: 20 mg Documented By: DINESH Magnesium Hydroxide (Milk Of Magnesia 30 Ml Oral.Susp) 30 ml PO DAILY PRN PRN Reason: Constipation Melatonin (Melatonin 3 Mg Tablet) 6 mg PO BEDTIME PRN PRN Reason: Insomnia Metformin HCl (Metformin Hcl 1,000 Mg Tablet) 1,000 mg PO BID [facility] Last Admin: 04/04/24 08:14 Dose: 1,000 mg Documented By: DINESH Non-Formulary Medication (Terbinafine Hcl) 250 mg PO QAM [facility] Ondansetron HCl (Ondansetron Hcl 4 Mg/2 Ml Vial) 4 mg IVPUSH Q8H PRN PRN Reason: Nausea and Vomiting Oxycodone HCl (Oxycodone Hcl Immed Release 5 Mg Tablet) 10 mg PO Q4H PRN PRN Reason: Pain, Moderate(Pain Scale 4-6) Last Admin: 04/04/24 04:47 Dose: 10 mg Documented By: ZOE Oxycodone HCl (Oxycodone Hcl Er 10 Mg Tab.Er.12h) 10 mg PO BID [facility] Last Admin: 04/04/24 08:13 Dose: 10 mg Documented By: DINESH Quetiapine Fumarate (Quetiapine Fumarate 50 Mg Tablet) 50 mg PO BEDTIME [facility] Last Admin: 04/03/24 20:51 Dose: 50 mg Documented By: EUNICE Sodium Chloride (0.9 % Sodium Chloride Flush 3 Ml Syringe) 3 ml IVFLUSH QSHIFT [facility] Last Admin: 04/04/24 08:14 Dose: 3 ml Documented By: DINESH Tizanidine HCl (Tizanidine Hcl 4 Mg Tablet) 4 mg PO TID PRN PRN Reason: muscle spasticity Triamcinolone Acetonide (Triamcinolone Acet 0.1 % Oint 15 Gm Tube) 1 appl TOPICAL BID [facility] Last Admin: 04/04/24 09:25 Dose: Not Given Documented By: DINESH Non-Admin Reason: Med Not Available Vitamin D (Cholecalciferol (Vitamin D3) 25 Mcg Tablet) 50 mcg PO DAILY [facility] Last Admin: 04/04/24 08:13 Dose: 50 mcg Documented By: DINESH Labs 04/04/24 05:27 04/04/24 05:27 Labs: Laboratory Results - last 24 hr 04/03/24 04/03/24 04/03/24 11:30 16:29 20:44 MCV MCH MCHC RDW Plt Count MPV Immature Gran % (Auto) Neut % (Auto) Lymph % (Auto) [place] % (Auto) Eos % (Auto) Baso % (Auto) Lymph # (Auto) [place] # (Auto) Eos # (Auto) Baso # (Auto) Abs Immat Gran (auto) Absolute Neuts (auto) Absolute Nucleated RBC Nucleated RBC % (auto) Anion Gap Estim Creat Clear Calc Estimated GFR POC Glucose 136 H 137 H 170 H Fasting Glucose Calcium 04/04/24 04/04/24 05:27 07:29 MCV 88.5 MCH 29.1 MCHC 32.8 RDW 14.8 Plt Count 174 MPV 10.7 Immature Gran % (Auto) 0.4 Neut % (Auto) 67.0 Lymph % (Auto) 22.9 [place] % (Auto) 9.1 Eos % (Auto) 0.3 Baso % (Auto) 0.3 Lymph # (Auto) 1.7 [place]wey # (Auto) 0.7 Eos # (Auto) 0.0 Baso # (Auto) 0.0 Abs Immat Gran (auto) 0.03 Absolute Neuts (auto) 4.8 Absolute Nucleated RBC 0.000 Nucleated RBC % (auto) 0.0 Anion Gap 13 Estim Creat Clear Calc 113.0 Estimated GFR > 60 POC Glucose 173 H Fasting Glucose 121 H Calcium 9.3 Assessment and Plan (1) Osteoarthritis of right knee: Status: Acute (2) Hypertension: Status: Acute (3) Lower back pain: Status: Acute Plan 58-year-old female patient with past medical history of lupus admitted for elective right knee total arthroplasty S/P RT TKA pod #1 Pain significantly improved, continue OxyContin/oxycodone/Celebrex/IV Tylenol and IV Dilaudid Wean Dilaudid as tolerated. Hematocrit dropped but stable above transfusion threshold Continue stool softeners/incentive spirometry Anticoagulation as per ortho Hypertension continue home medication lisinopril/hydrochlorothiazide/Norvasc 7.5 mg stable BP. Diabetes mellitus on insulin continue diabetic diet, continue Lantus reduced dose from 65 to 30 units at bedtime , continue insulin sliding scale and monitor point of care blood sugar closely Chronic lower back pain being followed by pain management. History of lupus being followed by systems requirements planner continue home medication Mood disorder continue Seroquel Full code DVT prophylaxis on Lovenox Will sign off Quality Stroke Does the patient have a stroke diagnosis?: No VTE Prior VTE?: No VTE Risk Level:: Medical - moderate - high VTE Device Contraindication: Treatment Not Indicated VTE Drug Contraindication: N/A - Med Ordered
[2024-04-04 11:38] VITALS: BP 111/75; PULSE 82; RESP 12; TEMP 36.1; O2SAT 98
[2024-04-04 11:51] LABS: Glucose, Whole Blood 102 mg/dL (60-115)
[2024-04-04 13:56] VITALS: BP 111/66; PULSE 82; RESP 14; TEMP 36.1; O2SAT 96
== END 2024-04-04 14:01 | disposition home health service (06) ==
LOC: HO.SSS 07:51 → HO.S3 15:31
PROVIDERS: Nurse Practitioner; Orthopaedic Surgery; PCP Internal Medicine; Visit Provider Physician Assistant
PROC: (CPT 27447; principal; 2024-04-03 09:30)
DX: M17.11 Unilateral primary osteoarthritis, right knee (principal); M25.561 Pain in right knee; M25.461 Effusion, right knee; M54.50 Low back pain, unspecified; M32.9 Systemic lupus erythematosus, unspecified; E11.22 Type 2 diabetes mellitus with diabetic chronic kidney disease; I12.9 Hypertensive chronic kidney disease with stage 1 through stage 4 chronic kidney disease, or unspecified chronic kidney disease; N18.2 Chronic kidney disease, stage 2 (mild); K21.9 Gastro-esophageal reflux disease without esophagitis; H40.9 Unspecified glaucoma; Z86.711 Personal history of pulmonary embolism; Z87.11 Personal history of peptic ulcer disease; F32.A Depression, unspecified; Z79.4 Long term (current) use of insulin; Z79.84 Long term (current) use of oral hypoglycemic drugs; Z88.5 Allergy status to narcotic agent; Z90.49 Acquired absence of other specified parts of digestive tract; Z98.890 Other specified postprocedural states; F17.210 Nicotine dependence, cigarettes, uncomplicated; Z56.0 Unemployment, unspecified
CPT/HCPCS: 27447; 36415; 80048; 82947; 85025; 85027; 86850; 86900; 86901; 87640; 87641; 88305; 88311; 97161; C1713; C1776; J0131; J0665; J0690; J1100; J1171; J1650; J2250; J2405; J2704; J2795; J3010; J7120

== ENCOUNTER → 2024-04-03 07:51 | Outpatient (BNV) | payer OTHER, SELFPAY | PROVIDERS: PCP Student in an Organized Health Care Education/Training Program; Visit Provider Hospitalist | DX: M17.11 Unilateral primary osteoarthritis, right knee (principal); M54.50 Low back pain, unspecified; I10 Essential (primary) hypertension; M32.9 Systemic lupus erythematosus, unspecified | CPT/HCPCS: 99222; 99232 ==

== ENCOUNTER → 2024-04-03 07:51 | Outpatient (BNV) | payer OTHER, SELFPAY | PROVIDERS: PCP Student in an Organized Health Care Education/Training Program; Visit Provider Orthopaedic Surgery | DX: M17.11 Unilateral primary osteoarthritis, right knee (principal); Z47.1 Aftercare following joint replacement surgery; Z96.651 Presence of right artificial knee joint | CPT/HCPCS: 27447; 99024; G0180 ==

== ENCOUNTER 2024-04-18 12:51 | Outpatient (AMB) | payer MEDICARE, SELFPAY ==
--- NOTE | 2024-04-18 13:15 | MHC.OFFVIS ---
Intake Visit Reasons: 2WK PO: R TKA w/NE 04/03/24 Intake Note: Galina is a 59 year old female who presents today for a post operative appointment s/p right total knee arthroplasty 04/03/24 NE. Patient reports she is having a lot of pain in her knee. Bandage was removed and sterile gauze was placed on top. Allergies tramadol Allergy (Severe, Verified 04/18/24 13:35) severe rash trazodone Adverse Reaction (Severe, Verified 04/18/24 13:35) hives HPI HPI 2WK PO: R TKA w/NE 04/03/24: Details: Ms. Doyle is a 59-year-old female who presents to the office today status post right total knee arthroplasty with Dr. Stapleton on 04/03/2024. Patient is extremely anxious while in the office today for staple removal and essentially sustained a panic attack. She was comforted in supported during this event. she reports that physical therapy is working with her at her home for the VNA. She is going to be transitioning to outpatient physical therapy. [facility] Medical History Arthritis Chronic renal insufficiency Glaucoma Pulmonary embolism GERD (gastroesophageal reflux disease) Diabetes Lupus anticoagulant disorder HTN (hypertension) Depression Osteoarthritis Lumbar spondylosis Smoker Bilateral knee swelling Surgical History History of esophagogastroduodenoscopy (EGD) H/O colonoscopy Hx of excision of mass Hx laparoscopic cholecystectomy Hx of tubal ligation Hx of section Family History Brother Diabetes Mother Hypertension Breast cancer, Onset Age: 49 Father Hypertension Maternal Grandmother Breast cancer Maternal Aunt Breast cancer, Onset Age: 53 Social History Household Members: Family and Children Household Members Other:: children Housing: House Are you a primary residential child care counselor to a significant other at home: No Do you presently have visiting nurse or other home services: Yes (talent development consultant) Alcohol intake: never Comment: all ordered meds give Patient Tobacco Use Status: Current everyday Tobacco user Tobacco use type: Cigarette Cigarette Packs Per Day: 0.5 Cigarettes Per Day: 10 Years Smoked: 32 service: No Current occupational status: unemployed and disabled Gender identity: Female Review of Systems Const All systems reviewed & are unremarkable except as noted in HPI and below Physical Exam Const General: cooperative, healthy appearing and no acute distress Resp Effort & Inspection: normal respiratory effort and able to speak in complete sentences Cardio Rate: regular rate Peripheral pulses: Peripheral pulses 2+ throughout Skin Lesions: no lesions Rashes: no rashes Extrem Other: Right knee Incision site is clean dry and intact. No surrounding erythema or drainage. No signs of infection. [place] intact. Passive extension to 10 degrees. Active flexion to 90 degrees. Poor quad functioning. No palpable defect. NVI. Assessment & Plan Assessment & Plan (1) Status post total right knee replacement: Code(s): Z96.651 - Presence of right artificial knee joint Category: Surgical Plan Ms. Doyle is a 59-year-old female who presents to the office today status post right total knee arthroplasty with Dr. Stapleton on 04/03/2024. Patient is extremely anxious while in the office today for staple removal and essentially sustained a panic attack. She was comforted in supported during this event. she reports that physical therapy is working with her at her home for the VNA. She is going to be transitioning to outpatient physical therapy. While the office today her joaquin are removed and Steri-Strips were applied. She will transition to outpatient physical therapy once home VNA services her terminated. I have placed an order for this she would like to attend our [place] office. She will follow up in [address] Stapleton, sooner as needed. Coding Level of Care Code Global (69821) Diagnoses Status post total right knee replacement Z96.651
--- OUTSIDE RECORDS SUMMARY | 2024-04-18 16:11 | XMS_ITS | Continuity of Care Document ---
Author Organization [facility] [place] [place] - [facility] Address [address] [place] [id number] Care Team Providers Care Take Out Waitress Name Role Phone [facility] Primary Care Provi nahum HIM [facility] OTHER Assessment No assessment recorded. Plan of Treatment Reminders Order Date Submit Date Provider Last Modified By Organization Details Last Modified Time Details Appointments None recorded. Lab BMP, serum or plasma [address], [address] [place] [address], [id number], 5 13:22:39 rapid SARS CoV 2 Ag, QL IA, respiratory specimen [address], [address] [place] [address], [id number], 5 13:22:39 rapid flu (A+B) [address], [address] [place] [address], [phone], 5 13:22:39 Referral None recorded. Procedures None recorded. Surgeries None recorded. Imaging None recorded. Medication Orders ondansetron 4 mg disintegrat ing tablet 2024 025 [facility] #[id number], [address] [place], [address], 5 12:41:16 Patient TargetsNo targets recorded. Patient [...] Name and Address Organization Details Recorded Time 46159 trazodone medicatio n Not available Not available Not available 03/19/2024 54706 RxNorm Not Available [facility] - production 5 10:04:02 91918 tramadol medicatio n Not available Not available Not available 03/19/2024 68627 RxNorm Not Available [facility] - production 5 10:04:02 Medications Name Sig Start Date Stop Date Status Note LastModified by Organization Details LastModified Time celecoxib 200 mg capsule active Not Available Not Available Not Available cyclobenzapr ine 10 mg tablet TAKE 1 TABLET BY MOUTH EVERY DAY AT BEDTIME NEEDED FOR MUSCLE SPASM active Not Available Not Available No t Available amoxicillin 500 mg capsule TAKE 1 CAPSULE BY MOUTH 3 TIMES A DAY FOR 7 DAYS UNTIL FINISHED active Not Available Not Available No t Available terconazole 0.4 % vaginal cream APPLY 1 APPLICATORF UL VAGINALLY AT BEDTIME FOR 7 NIGHTS active Not Available Not Available No t Available prednisone 10 mg tablet PLEASE SEE ATTACHED FOR DETAILED DIRECTIONS active Not Available Not Available N ot Available gabapentin 600 mg tablet TAKE 2 TABLETS BY MOUTH 3 TIMES A DAY active Not Available Not Available Not Available tizanidine 2 mg tablet PLEASE SEE ATTACHED FOR DETAILED DIRECTIONS active Not Available Not Available N ot Available loperamide 2 mg capsule TAKE 1 CAPSULE BY MOUTH 4 TIMES DAILY NEEDED FOR DIARRHEA. active Not Available Not Available No t Available ibuprofen 800 mg tablet TAKE 1 TABLET BY MOUTH EVERY 6 TO 8 HOURS NEEDED FOR PAIN active Not Available Not Available No t Available tizanidine 4 mg tablet TAKE 1 TABLET 3X/DAY NEEDED FOR MUSCLE SPASM.MAY CAUSE DROWSINESS. NO DRIVING/ALC OHOL active Not Available Not Available No t Available fluconazole 150 mg tablet TAKE 1 TAB BY MOUTH NOW. MAY REPEAT IN 72 HOURS IF STILL SYMPTOMATIC . active Not Available Not Available No t Available hydrochlorot hiazide 50 mg tablet TAKE 1 TABLET BY MOUTH EVERY DAY active Not Available Not Available No t Available prazosin 1 mg capsule TAKE 1 CAPSULE BY MOUTH EVERYDAY AT BEDTIME active Not Available Not Available No t Available metronidazol e 0.75 % (37.5 mg/5 gram) vaginal gel active Not Available Not Available Not Available lisinopril 20 mg tablet TAKE 1 TABLET BY MOUTH EVERY DAY active Not Available Not Available No t Available prednisone 5 mg tablet TAKE 4 TABS BY MOUTH DAILY X7 DAYS, THEN 3 TABS DAILY X7 DAYS, 2 TABS DAILY X7 DAYS, 1 TAB DAILY active Not Available Not Available No t Available methylpredni solone 4 mg tablet PLEASE SEE ATTACHED FOR DETAILED DIRECTIONS active Not Available Not Available N ot Available amlodipine 2.5 mg tablet TAKE 1 TABLET BY MOUTH EVERY DAY (WITH 5MG) active Not Available Not Available No t Available amlodipine 5 mg tablet TAKE 1 TABLET BY MOUTH EVERY DAY (WITH 2.5MG) active Not Available Not Available No t Available quetiapine 100 mg tablet TAKE 1 TABLET BY MOUTH EVERYDAY AT BEDTIME active Not Available Not Available No t Available bupropion HCl SR 100 mg tablet,12 hr sustained-re lease TAKE 1 TABLET BY MOUTH EVERY DAY IN THE MORNING active Not Available Not Available No t Available terbinafine HCl 250 mg tablet TAKE 1 TABLET BY MOUTH 1 TIME EACH DAY. active Not Available Not Available No t Available clonidine HCl 0.2 mg tablet TAKE 1 TABLET BY MOUTH TWICE A DAY NEEDED FOR PANIC ATTACK. active Not Available Not Available No t Available dicyclomine 20 mg tablet TAKE 1 TABLET BY MOUTH 4 TIMES A DAY NEEDED FOR ABDOMINAL PAIN active Not Available Not Available No t Available cephalexin 500 mg capsule TAKE 1 CAPSULE BY MOUTH TWICE A DAY FOR 7 DAYS active Not Available Not Available No t Available mirtazapine 30 mg tablet TAKE 1 TABLET BY MOUTH EVERY DAY AT NIGHT active Not Available Not Available No t Available metformin 1,000 mg tablet TAKE 1 TABLET BY MOUTH TWICE A DAY WITH FOOD active Not Available Not Available No t Available triamcinolon e acetonide 0.1 % topical ointment APPLY TO AFFECTED AREA TOPICALLY 2 TIMES A DAY active Not Available Not Available Not Available lidocaine 5 % topical patch APPLY 1 PATCH TOPICALLY DAILY. LEAVE PATCH ON FOR 12 HOURS AND THEN REMOVE active Not Available Not Available Not Available omeprazole 20 mg capsule,kina yed release TAKE 1 CAPSULE BY MOUTH TWICE A DAY active Not Available Not Available No t Available mirtazapine 15 mg tablet TAKE 1 TABLET BY MOUTH EVERY EVENING active Not Available Not Available No t Available ergocalcifer ol (vitamin D2) 1,250 mcg (50,000 unit) capsule TAKE 1 CAPSULE BY MOUTH ONCE A WEEK FOR 12 DOSES active Not Available Not Available No t Available nystatin 100,000 unit/gram topical powder APPLY TO AREA OF CONCERN 2-3 TIMES PER DAY WHENEVER RASH IS PRESENT. active Not Available Not Available No t Available hydroxychlor oquine 200 mg tablet TAKE 1 TABLET BY MOUTH TWICE A DAY active Not Available Not Available No t Available zolpidem 10 mg tablet TAKE 1 TABLET BY MOUTH EVERY DAY AT BEDTIME NEEDED FOR INSOMNIA active Not Available Not Available No t Available ondansetron 4 mg disintegrati ng tablet DISSOLVE 1 TABLET UNDER TONGUE EVERY 8 HOURS active Not Available Not Available No t Available naproxen 500 mg tablet TAKE 1 TABLET BY MOUTH 2 TIMES DAILY NEEDED FOR PAIN (TAKE WITH FOOD.) FOR UP TO 15 DAYS. active Not Available Not Available No t Available oxycodone 5 mg tablet TAKE 1 TABLET [...] Not Available Not Available No t Available enoxaparin 40 mg/0.4 mL subcutaneous syringe active Not Available Not Available Not Available insulin lispro (U-100) 100 unit/mL subcutaneous pen PLEASE SEE ATTACHED FOR DETAILED DIRECTIONS active Not Available Not Available N ot Available Novolog FlexPen U-100 Insulin aspart 100 unit/mL (3 mL) subcutaneous PLEASE SEE ATTACHED FOR DETAILED DIRECTIONS active Not Available Not Available N ot Available bupropion HCl XL 150 mg 24 hr tablet, extended release TAKE 1 TABLET BY MOUTH EVERY DAY IN THE MORNING active Not Available Not Available No t Available nitrofuranto in monohydrate/ macrocrystal s 100 mg capsule TAKE 1 CAPSULE BY MOUTH TWICE A DAY FOR 5 DAYS active Not Available Not Available No t Available duloxetine 20 mg capsule,kina yed release TAKE 2 CAPSULES BY MOUTH EVERY NIGHT active Not Available Not Available No t Available duloxetine 60 mg capsule,kina yed release TAKE 1 CAPSULE BY MOUTH EVERY DAY active Not Available Not Available No t Available tizanidine 4 mg capsule TAKE 1 CAPSULE BY MOUTH 3 TIMES DAILY NEEDED FOR MUSCLE SPASMS FOR UP TO 15 DAYS. active Not Available Not Available No [...] 100 unit/mL (3 mL) subcutaneous pen INJECT 70 UNITS INTO THE SKIN AT BEDTIME OR DIRECTED active Not Available Not Available Not Available oxycodone 10 mg tablet TAKE 1/2 TABLET BY MOUTH EVERY 8 (EIGHT) HOURS IF NEEDED FOR SEVERE PAIN FOR UP TO 28 DAYS. active Not Available Not Available No t Available diclofenac 1 % topical gel APPLY 4 GRAMS TOPICALLY 4 TIMES DAILY, SINGLE KNEE,ANKLE OR FOOT (TO INCLUDE SOLE/TOES/T OP FOOT) active Not Available Not Available No t [...] Not Available Not Available No t Available sodium,potas sium,mag sulfates 17.5 gram-3.13 gram-1.6 gram oral soln TAKE 177 ML BY MOUTH SEE ADMIN INSTRUCTION S FOR 2 DOSES. active Not Available Not Available No t Available Farxiga 10 mg tablet TAKE 1 TABLET BY MOUTH EVERY DAY active Not Available Not Available No t Available Farxiga 5 mg tablet TAKE 1 TABLET BY MOUTH EVERY DAY active Not Available Not Available No t Available Dexcom G6 Sensor device USE 1 SENSOR EVERY 10 DAYS active Not Available Not Available No t Available Dexcom G6 Transmitter device USE DIRECTED FOR 3 MONTHS active Not Available Not Available No t Available EC-Naproxen 500 mg tablet,delay ed release TAKE 1 TABLET ORALLY TWICE DAILY AFTER MEALS active Not Available Not Available Not Available BD Elizabeth 2nd Gen Pen Needle 32 gauge x USE ONE DAILY WITH INSULIN active Not Available Not Available No t Available OneTouch Ultra2 Meter USE TO CHECK BLOOD SUGAR 3 TIMES DAILY active Not Available Not Available Not Available OneTouch Delica Plus Lancet 30 gauge USE TO TEST BLOOD SUGAR 3 TIMES DAILY active Not Available Not Available No t Available Gvoke HypoPen 2-Pack 1 mg/0.2 mL subcutaneous auto-injecto r INJECT 1 DEVICE INTO THE SKIN NEEDED FOR OTHER (LOW BLOOD SUGAR). active Not Available Not Available No t Available Flowflex COVID-19 Antigen Home Test kit USE DIRECTED active Not Available Not Available No t Available Vitals Date Recorded Body weight Body height Body temperature Oxygen saturation Oxygen saturation in Arterial blood by Pulse oximetry Respiratory rate Heart rate Systolic blood pressure Diastolic blood pressure Provider Name and Address Organization Details Last Updated DateTime 5 901280. 816 g 175.26 cm 97.9 [degF] 100 [...] SNOMED-CT Code Diagnosis ICD10 Code Diagnosis Note [id number] Sushma Sanchez MD Main - [facility] [address] [place] [phone] 03/19/2024 12:19:53 03/19/2024 17:52:46 Nausea and vomiting [id number] R11.2 Evaluation in the field was performed by my food server colleague, as noted above, I provided real-time [...] course of cephalexin 1 wk ago. On food server eval VS wnl, exam unremarkab le. POC [...] [employer] Member ID Guarantor Name 03/19/2024 1 [facility] - DOS ON OR AFTER 2022 - DUAL ELIGIBLE - NURSING HOME OPTIONS AND ONE CARE (MEDICARE REPLACEMENT/ADV ANTAGE - HMO) Galina Doyle [id number] Galina Doyle Notes Date Note Type Note [...] (e.g., Lupus) PMH Reviewed at 03/19/2024 - 10:04 Allergies Reviewed at 03/19/2024 - 10:04 Comments: Machine Design Engineer verified the name//address and phone number. Pt [...] s/s and seek emergency treatment if needed [place] Organization Information for Abel [employer] Business Legal Name: [facility] Transportation Address: [address] [place] [address], [place] [address], Hand Ii Thermal Cutter: Vito Gould MD CLIA No.: [id number] [place] POC Test Results from Abel Ron [facility] (12:25:05) pH: 7.38 pH units pCO2: [...] .................... .................... .................... .................... .................... .................... . [place] Note From Abel Ron: This 58-year-old female [...] .................... .................... .................... .................... .................... .................... . [facility] [place]: Austad, Sushma .................... .................... .................... .................... .................... .................... .................... . Disposition: Fulfilled Sushma Sanchez MD [address] [facility],[address], [place], [phone], [employer] 03/19/2024 13:23:04 OBGyn Episode No OBEpisode recorded.
--- OUTSIDE RECORDS SUMMARY | 2024-04-18 16:11 | XMS_ITS | Encounter Summary ---
Author Organization [employer] Address [address] [place] [address] Care Team Providers Care Plating Operator Name Role Phone Darrel Tony MD Primary Care Provider [phone] [phone] Reason for Visit * Reason Onset Date Comments Chest Pain 03/19/2024 GI Problem 03/19/2024 Encounter Details Date Type Department Care Team (Late st Contact Info) Description 03/19/2024 [facility] [address] [place] [phone] Darrel Tony MD [address] [place] [address] Chest Pain; GI Problem Social History Tobacco [...] traveled recently to another state outside of [place], [place], [place], [place], [place], [place], [place]? no o If yes, did you quarantine [...] of accident/Injury: No If yes, gather 3rd republican insurance information Third Democrat Information: not applicable PCP: Darrel Tony MD Payor[facility] [employer] [facility] MEDIC[facility] / Plan: [facility] ONE CARE / Product Type: *No Product type* / documented in this encounter Plan of Treatment Upcoming Encounters Date Type Department Care Team (Shirley Contact Info) Description 05/02/2024 2:00 PM EDT Office Visit Internal Medicine - [address] [phone] Darrel Tony MD [address] [place] [address] 05/15/2024 11:00 AM EDT Office Visit Endocrinology - [address] [address] Trish Hyatt PA [address] [place] [address] documented as of this encounter Visit Diagnoses Not on filedocumented in this encounter Care Teams Plating Operator Relationship Specialty Start Date End Date Darrel Tony MD [address] [place] [address] PCP - General Internal Medicine 11/22/21 documented as of this encounter
--- OUTSIDE RECORDS SUMMARY | 2024-04-18 16:11 | XMS_ITS | Encounter Summary ---
Author Organization [employer] Address [address] [place] [address] Care Team Providers Care Wire Worker Name Role Phone Darrel Tony MD Primary Care Provider [phone] Reason for Visit * Reason Onset Date Comments faxed order 03/26/2024 Encounter Details Date Type Department Care Team (Late st Contact Info) Description 03/26/2024 [facility] [address] [place] [address] Darrel Tony MD [address] [place] [address] faxed order Social History Tobacco Use Types [...] [place] - 03/26/2024 1:51 PM EST [facility] * Jacklyn Fritz - 03/26/2024 1:44 PM EST [facility] calling they did not receive PCP order form from 02/28 encounter. Needs this resent to [phone]. documented in this encounter Plan of Treatment Upcoming Encounters Date Type Department Care Team (Late st Contact Info) Description 05/02/2024 2:00 PM EDT [facility] [address] [place] [phone] Darrel Tony MD [address] [place] [address] 05/15/2024 11:00 AM EDT Office Visit Endocrinology - [address] [address] Trish Hyatt PA [address] [place] [address] documented as of this encounter Visit Diagnoses Not on filedocumented in this encounter Care Teams Wire Worker Relationship Specialty Start Date End Date Darrel Tony MD [address] [place] [address] PCP - General Internal Medicine 11/22/21 documented as of this encounter
--- OUTSIDE RECORDS SUMMARY | 2024-04-18 16:11 | XMS_ITS | Encounter Summary ---
Author Organization [employer] Address [address] [place] [address] Care Team Providers Care Polymerization Oven Tender Name Role Phone Darrel Tony MD Primary Care Provider [phone] Reason for Visit * Reason Onset Date Comments Faxed Order 03/27/2024 [facility] Encounter Details Date Type Department Care Team (Late st Contact Info) Description 03/27/2024 [facility] [address] [place] [address] Darrel Tony MD [address] [place] [address] Faxed Order ([facility] ) Social History [...] - 03/27/2024 10:59 AM EST Orders from [facility] placed in Darrel Tony MD bin. Please complete and fax back to [phone]. Thank you. documented in this encounter Plan of Treatment Upcoming Encounters Date Type Department Care Team (Late st Contact Info) Description 05/02/2024 2:00 PM EDT Office Visit Internal Medicine - [address] [phone] Darrel Tony MD [address] [place] [address] 05/15/2024 11:00 AM EDT Office Visit Endocrinology - [address] [address] Trish Hyatt PA [address] [place] [address] documented as of this encounter Visit Diagnoses Not on filedocumented in this encounter Care Teams Polymerization Oven Tender Relationship Specialty Start Date End Date Darrel Tony MD [address] [place] [address] PCP - General Internal Medicine 11/22/21 documented as of this encounter
--- OUTSIDE RECORDS SUMMARY | 2024-04-18 16:11 | XMS_ITS | Encounter Summary ---
[facility] Address [address] [place] [address] Care Team Providers Care Latex Fashions Designer Name Role Phone Darrel Tony MD Primary Care Provider [phone] Reason for Visit * Reason Onset Date Comments Request For Order(s) 04/16/2024 [facility] Encounter Details Date Type Department Care Team (Late st Contact Info) Description 04/16/2024 [facility] [address] [place] [phone] Darrel Tony MD [address] [place] [address] Request For Order(s) ([facility]) Social History Tobacco Use Types Packs/Day Years [...] as of this encounter Progress Notes * Arlene Andujar - 04/16/2024 12:37 PM EDT Faxed order received from [facility]. Orders placed in Darrel Tony MD bin for signing, please fax to [phone]. documented in this encounter Plan of Treatment Upcoming Encounters Date Type Department Care Team (Late st Contact Info) Description 05/02/2024 2:00 PM EDT Office Visit Internal Medicine - [address] [address] Darrel Tony MD [address] [place] [address] 05/15/2024 11:00 AM EDT Office Visit Endocrinology - [address] [address] Trish Hyatt PA [address] [place] [address] documented as of this encounter Visit Diagnoses Not on filedocumented in this encounter Care Teams Latex Fashions Designer Relationship Specialty Start Date End Date Darrel Tony MD [address] [place] [address] PCP - General Internal Medicine 11/22/21 documented as of this encounter
--- OUTSIDE RECORDS SUMMARY | 2024-04-18 16:11 | XMS_ITS ---
Author Name [facility] Organization Unknown Encounters Encounter Type Encounter Reason Primary Diagnosis Location Date Ambulatory [facility] 03/20/2023 Ambulatory [facility] 03/18/2023 Ambulatory [facility] 03/18/2023 Ambulatory [facility] 03[facility]18/2023 Ambulatory [facility] 03/18/2023 Ambulatory [facility] 03/18/2023 Ambulatory [facility] 03/17/2023 Ambulatory [facility] 03/17/2023
--- OUTSIDE RECORDS SUMMARY | 2024-04-18 16:11 | XMS_ITS | Data Portability ---
Author Organization [place] [employer] [facility], [place] in [facility] Address [address] [place] [address] Care Team Providers Care Knife Grinder Name Role Phone [facility] Primary Care Provi nahum HIM CCA OTHER Assessment No assessment recorded. Plan of Treatment Reminders Order Date Submit Date Provider Last Modified By Organization Details Last Modified Time Details Appointments None recorded. Lab BMP, serum or plasma [address], [address] [place] [address], [id number], 5 13:22:39 rapid SARS CoV 2 Ag, QL [place], respiratory specimen [address], [address] [place] [address], [id number], 5 13:22:39 rapid flu (A+B) [address], [address] [place] [address], [id number], 5 13:22:39 Referral None recorded. Procedures None recorded. Surgeries None recorded. Imaging None recorded. Medication Orders ondansetron 4 mg disintegrat ing tablet 2024 025 [id number], [address] [place], [address], 5 12:41:16 Patient TargetsNo targets recorded. Patient [...] Name and Address Organization Details Recorded Time 55770 trazodone medicatio n Not available Not available Not available 03/19/2024 83901 RxNorm Not Available [facility] - production 5 10:04:02 50750 tramadol medicatio n Not available Not available Not available 03/19/2024 93616 RxNorm Not Available [facility] - production 5 10:04:02 Medications Name Sig [...] Address Organization Details Last Updated DateTime 5 073546. 816 g 175.26 cm 97.9 [degF] 100 [...] SNOMED-CT Code Diagnosis ICD10 Code Diagnosis Note [id number] Sushma Sanchez MD Main - [address] [address] 03/19/2024 12:19:53 03/19/2024 17:52:46 Nausea and vomiting [id number] R11.2 Evaluation in the field was performed by my shake backboard notcher colleague, as noted above, I provided real-time [...] course of cephalexin 1 wk ago. On shake backboard notcher eval VS wnl, exam unremarkab le. POC [...] Member ID Guarantor Name 03/19/2024 1 [facility] - DOS ON OR AFTER 2022 - DUAL ELIGIBLE - LONGTERM OPTIONS AND ONE CARE (MEDICARE REPLACEMENT/ADV ANTAGE - HMO) Galina Doyle [id number] Galina Doyle Notes Date Note Type Note [...] Allergies Reviewed at 03/19/2024 - 10:04 Comments: Nutritionist Public Health verified the name//address and phone number. Pt [...] s/s and seek emergency treatment if needed Incident Manager Organization Information for Abel Ron Business Legal Name: [facility] Transportation Address: [address] [place] [address], [place] [address], Doughnut Maker: Vito Gould MD CLIA No.: [id number] Incident Manager POC Test Results from Abel Ron epo (12:25:05) pH: 7.38 pH units pCO2: 49.1 [...] .................... .................... .................... .................... .................... .................... . Incident Manager Note From Abel Ron: This 58-year-old female [...] .................... .................... .................... .................... .................... .................... . [facility] Consulted: Sushma Sanchez .................... .................... .................... .................... .................... .................... .................... . Disposition: Fulfilled Sushma Sanchez MD [address] [facility],[address], [place], [address], [employer] - [employer] Limited[employer]LEY ARROYO 03/19/2024 13:23:04 OBGyn Episode No OBEpisode recorded.
--- OUTSIDE RECORDS SUMMARY | 2024-04-18 16:11 | XMS_ITS | Clinical Summary ---
Author Organization [facility] Address [address] [address] Care Team Providers Care Displayer Merchandise Name Role Phone Unavailable Primary Care Provider [...]
--- OUTSIDE RECORDS SUMMARY | 2024-04-18 16:11 | XMS_ITS | Clinical Summary ---
Author Organization [place] [address] [address] [facility] Address [address] [facility] [place] [address] Phone Care Team Providers Care Transit Bus Driver Name Role Phone Darrel Tony MD Primary Care Provider [phone] [phone] Allergies Active Allergy Reactions Criticality Noted Date Comments Tramadol Rash 11/08/2023 Trazodone Rash 11/08/2023 Acetaminophen Headache 04/08/2024 Per pt Medications metFORMIN (GLUCOPHAGE) 1,000 mg tablet Take [...] mg total) by mouth at bedtime. 12/02/19 Active tiZANidine (ZANAFLEX) 4 mg capsule TAKE 1 CAPSULE BY MOUTH 3 TIMES DAILY NEEDED FOR MUSCLE SPASMS FOR UP TO 15 DAYS. 04/19/19 24 Active buPROPion XL (WELLBUTRIN XL) 150 mg 24 hr tablet Take 1 tablet (150 mg total) by mouth 1 (one) time each day in the morning. 12/02/19 24 Active cholecalciferol (VITAMIN D-3) 50 mcg (2,000 unit) tabletIndicatio ns:Vitamin D deficiency, unspecified TAKE 1 TABLET BY MOUTH EVERY DAY 90 tablet 1 12/29/19 24 Active amLODIPine (NORVASC) 2.5 mg tablet Take 1 Tablet by mouth daily. With the 5 mg daily for a total of 7.5 mg - Oral 90 tablet 1 01/29/20 24 Active amLODIPine (NORVASC) 5 mg tablet Take 1 Tablet by mouth daily. With the 2.5 mg daily for a total of 7.5 mg - Oral 90 tablet 1 01/29/20 24 Active oxyCODONE (ROXICODONE) 10 mg immediate release tablet Take 0.5 tablets (5 mg total) by mouth every 8 (eight) hours if needed for severe pain for up to 28 days. Max Daily Amount: 15 mg 42 tablet 04/09/19 25 025 Active terbinafine (LamISIL) 250 mg tablet Take 1 tablet (250 mg total) by mouth 1 (one) time each day. 30 tablet 2 01/10/20 24 025 oxyCODONE (ROXICODONE) 10 mg immediate release tablet Take 0.5 tablets (5 mg total) by mouth every 8 (eight) hours if needed for severe pain for up to 28 days. Max Daily Amount: 15 mg 42 tablet 03/11/19 25 025 Discontinu ed(Reorder ) Active Problems Problem Noted Date Diagnosed Date [...] Encounters Date Type Department Care Team Description 04/16/2024 [facility] [address] [phone] Darrel Tony MD Request For Order(s) ([facility]) 03/27/2024 Telephone Internal Medicine - [address] [phone] Darrel Tony MD Faxed Order ([facility] ) 03/26/2024 Telephone Internal Medicine - [address] [phone] Darrel Tony MD faxed order 03/19/2024 Telephone Internal Medicine - [address] [phone] Darrel Tony MD Chest Pain; GI Problem 02/29/2024 Telephone Internal Medicine - [address] [phone] Darrel [facility] 02/05/2024 Telephone Internal Medicine [address] [phone] Mariia Sandhu [place] 01/29/2024 10:00 AM EST Consult Internal Medicine - [address] [phone] Darrel Tony MD Preop examination from Last 3 Months Immunizations Name Administration [...] CHOLECYSTECTOMY 1998 PROCEDURE: LAPAROSCOPY, CHOLECYSTECTOMY SECTION PROCEDURE: [place] DELIVERY ONLY; COMMENT: X4 TUBAL LIGATION PROCEDURE: HISTORICAL TUBAL LIGATION CHOLECYSTECTOMY PROCEDURE: OH LAPAROSCOPY SURG CHOLECYSTECTOMY Medical History Medical History Date Comments Other pulmonary embolism and infarction 1998 DX:Other pulmonary embolism and infarction 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; COMMENT: scalp, arms; + biopsy 11/2005 Systemic lupus erythematosus ([facility] 09/01/2006 DX:Systemic lupus erythemato espinoza ([facility]); COMMENT: DISCOID LESIONS, SUB-ACUTE SKIN LESIONS ARTHRALGIAS, MILD PROTEINURIA + Anti-DNA, 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-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 SERVICE 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, Anti-Sm, SS-A Esophageal reflux DX:Esophageal reflux Essential hypertension, benign 05/30/2005 D X:Essential hypertension, benign Obesity DX:Obesity 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 D X: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 Type 2 diabetes mellitus ([facility]) 03/01/2018 DX:Type 2 diabetes mellitus ([facility]) Vitamin D deficiency 11/14/2019 DX:Vitamin D deficiency [...] PM EDT Office Visit Internal Medicine - [address] [phone] Darrel Tony MD [address] [place] [address] 05/15/2024 11:00 AM EDT Office Visit Endocrinology - [address] [phone] Trish Hyatt PA [address] [place] [address] Health Maintenance Due Date Last Done Comments [...] Associated Diagnosis Comments EXTERNAL CLINICAL LAB 01/19/2024 PAP SMEAR Routine 05/03/2023 SCREENING MAMMOGRAPHY BI 2-VIEW BREAST INC CAD Routine 03/30/2023 9:57 AM EST Encounter for screening mammogram for malignant neoplasm of breast HM URINE ALBUMIN CREATININE RATIO Routine 08/30/2022 from Last 3 Months or Most Recently Relevant to Health Maintenance Results * External clinical lab (01/19/2024) us Provider [facility] LAB BLOOD ORDERABLES Fin al Result * Pap smear (05/03/2023) 05/03/2023 Narrative HISTORICAL TESTING LAB RESULTING AGENCY - 05/08/2023 2:56 PM EDT [id number] THINPREP PAP, IMAGED: NEGATIVE FOR SQUAMOUS INTRAEPITHELIAL LESION AND MALIGNANCY . QUINN CARMICHAEL(ASCP) (CASE ELECTRONICALLY SIGNED 05 08 2023) RESULT OF APTIMA HIGH RISK HPV ASSAY: HIGH RISK HPV: ??NEGATIVE (SEROTYPES 16,18,31,33,35,39,45,51,52,56,58,59,66,68) COMPLETED ON 2023-05-08 ADEQUACY: SATISFACTORY ENDOCERVICAL/TRANSFORMATION ZONE COMPONENT ABSENT. SOURCE: THINPREP PAP HPV ANY DX: ??REFLEX 16 AND 18, CERVICAL, IMAGED CLINICAL INFORMATION: HPV ANY DIAGNOSIS. MENOPAUSE, Z12.4 us Jackeline Novoa CN LAB CYTOLOGY ORDERABLES Jadyn whitfield Result HISTORICAL [...] Most Recently Relevant to Health Maintenance Insurance [facility] MEDICARE Member Subscriber Plan / Payer (Ef fective 2023-Present) Name:Galina Doyle Relation to Subscriber:Self Name:Galina Doyle Payer ID:[id number] Group ID:[id number] Type:Not on file Address: [place] [address] [address] [address] Care Teams Transit Bus Driver Relationship Specialty Start Date End Date Darrel Tony MD [address] [place] [address] PCP - General Internal Medicine 11/22/21
== END 2024-04-18 13:34 | disposition home or self-care (01) ==
LOC: HO.HOS 12:51
PROVIDERS: PCP Internal Medicine; Visit Provider Physician Assistant
DX: Z96.651 Presence of right artificial knee joint (principal)
CPT/HCPCS: 99024

== ENCOUNTER → 2024-04-18 12:51 | Outpatient (BNVA) | payer OTHER, SELFPAY | PROVIDERS: PCP Internal Medicine; Visit Provider Physician Assistant | DX: M25.561 Pain in right knee (principal); Z47.1 Aftercare following joint replacement surgery; Z96.651 Presence of right artificial knee joint | CPT/HCPCS: 99212 ==

== ENCOUNTER 2024-05-09 11:43 | Outpatient (REF) | payer OTHER, SELFPAY ==
--- NOTE | ~2024-05-09 | XR_ITS ---
CLINICAL HISTORY: M25.561 - Pain in right knee 3 view right knee Comparison: None Findings: Ventral skin and/or soft tissue staple present. Postprocedural changes from right knee arthroplasty. Large effusion present, with small loose bodies. Capsular calcifications noted. No acute fracture or suspicious lucency about the hardware at this time. Remodeling calcifications including medial collateral ligament complex. Severe osteoarthritis of the left knee. Periosteal thickening of the proximal tibia as can be seen with venous stasis and stress phenomenon. IMPRESSION: 1. Postprocedural changes from right knee arthroplasty with large effusion. 2. Ventral skin joaquin in place. 3. Severe osteoarthritis of the contralateral knee in the [id number]. This document has been electronically signed by: Jarad Velez MD on 05/11/2024 01:23:33
--- OUTSIDE RECORDS SUMMARY | 2024-05-09 13:03 | XMS_ITS | Encounter Summary ---
Author Organization [facility] Address [address] [place] [address] Care Team Providers Care Master Fire Control Technician Name Role Phone Darrel Tony MD Primary Care Provider +1 [phone] Encounter Details Date Type Department Care Team Description 02/22/2023 Orders Only Medical Records [address] [place] [address] Rufus Bernard MD [address] [place] [address] Social History Tobacco Use Types Packs/Day Years [...] these findings with the referring physician at [facility] gastroenterology clinic. I would like to personally thank you for allowing us to take care of you. Please don't hesitate to call us for any questions or concerns. Regards, Gagandeep Bernard MD Board Certified Gastroenterology and Internal Medicine Transplant Hepatology [facility] documented in this encounter Plan of Treatment Upcoming Encounters Date Type Specialty Care Team Description 10/17/2024 Hand Candle Dipper Report Abstract, Provider documented as of this encounter Procedures Procedure Name Priority Date/Time Associated Diagnosis Comments OUTSIDE PATHOLOGY Routine 02/20/2023 documented in this encounter Results * OUTSIDE PATHOLOGY (02/20/2023) H Ronnell Bernard MD OUTSIDE LAB documented in this encounter Visit Diagnoses Not on filedocumented in this encounter Care Teams Master Fire Control Technician Relationship Specialty Start Date End Date Darrel Tony MD [address] [place] [address] PCP - General Internal Medicine 11/22/21 documented as of this encounter
--- OUTSIDE RECORDS SUMMARY | 2024-05-09 13:03 | XMS_ITS | Encounter Summary ---
Author Organization [facility] Address [address] [place] [address] Care Team Providers Care Hockey Scout Name Role Phone Darrel Tony MD Primary Care Provider +1 [phone] Encounter Details Date Type Department Care Team Description 08/30/2022 Orders Only Medical Records [address] [place] [address] Abstract, Provider Social History Tobacco Use Types [...] Date Type Specialty Care Team Description 10/17/2024 Global Head Advertiser Solutions Report Abstract, Provider documented as of this encounter Procedures Procedure Name Priority Date/Time Associated Diagnosis Comments OUTSIDE CT Routine 08/11/2022 documented in this encounter Results * OUTSIDE CT (08/11/2022) Provider Abstract RADIOLOGY documented in this encounter Visit Diagnoses Not on filedocumented in this encounter Care Teams Hockey Scout Relationship Specialty Start Date End Date Darrel Tony MD [address] [place] [address] PCP - General Internal Medicine 11/22/21 documented as of this encounter
--- OUTSIDE RECORDS SUMMARY | 2024-05-09 13:03 | XMS_ITS | Encounter Summary ---
Author Organization [facility] Address [address] [place] [address] Care Team Providers Care Seam Hammerer Name Role Phone Darrel Tony MD Primary Care Provider +1 -[phone] Reason for Visit * Reason Onset Date Comments refill request 03/16/2023 Encounter Details Date Type Department Care Team Description 03/16/2023 Refill Adult Medicine B - [place] [address] [place] [address] Suzanne Winston, INTELLECTUAL PROPERTY MANAGER [address] [place] [address] refill request Social History Tobacco Use Types [...] Tartrate 10 Mg Tablet 30 30 Sh [facility] [id number] [facility] (1855) 0/0 0.50 LME Medicare [place] 02/16/2023 02/13/2023 2 Oxycodone Hcl (Ir) 10 Mg Tab 42 28 Te Sva [id number] [facility] (4352) 0/0 22.50 MME Medicare [place] 02/11/2023 01/13/2023 2 Gabapentin 600 Mg Tablet 168 28 Iraj [id number] [facility] (1855) 1/4 4.02 LME Medicare [place] 02/10/2023 02/10/2023 2 Oxycodone Hcl (Ir) 10 Mg Tab 10 7 Ka Gun [id number] [facility] (4352) 0/0 21.43 MME Medicare [place] 01/23/2023 01/12/2023 2 Zolpidem Tartrate 10 Mg Tablet 28 28 Sh [facility] [id number] [facility] (1855) 0/0 0.50 LME Medicare [place] 01/23/2023 01/13/2023 2 Gabapentin 600 Mg Tablet 168 28 Iraj [id number] [facility] (1855) 0/4 4.02 LME Medicare [place] 01/11/2023 01/11/2023 2 Oxycodone Hcl (Ir) 10 Mg Tab 42 28 Ka Gun [id number] [facility] (4352) 0/0 22.50 MME Private Pay [place] 12/12/2022 12/12/2022 2 Oxycodone Hcl (Ir) 10 Mg Tab 42 28 Te Sva [id number] [facility] (4352) 0/0 22.50 MME Medicaid [place] 12/01/2022 11/18/2022 2 Zolpidem Tartrate 10 Mg Tablet 28 28 Sh [facility] [id number] [facility] (1855) 0/0 0.50 LME Medicaid [place] 11/20/2022 08/24/2022 2 Gabapentin 600 Mg Tablet 168 28 Ja Iraj [id number] [facility] (1855) 2/2 4.02 LME Medicaid [place] 11/10/2022 11/10/2022 2 Oxycodone Hcl (Ir) 10 Mg Tab 42 28 Ka Gun [id number] [facility] (4352) 0/0 22.50 MME Medicaid [place] 10/13/2022 08/24/2022 2 Gabapentin 600 Mg Tablet 168 28 Ja [facility] [id number] [facility] (1855) 1/2 4.02 LME Medicaid [place] 10/13/2022 10/13/2022 2 Oxycodone Hcl (Ir) 10 Mg Tab 42 14 Ka Gun [id number] [facility] (4352) 0/0 45.00 MME Medicaid [place] 10/12/2022 10/12/2022 2 Zolpidem Tartrate 10 Mg Tablet 28 28 Sh [facility] [id number] [facility] (1855) 0/0 0.50 LME Medicaid [place] 09/13/2022 09/13/2022 2 Oxycodone Hcl (Ir) 10 Mg Tab 42 28 Ka Gun [id number] [facility] (4352) 0/0 documented in this encounter Plan of Treatment Upcoming Encounters Date Type Specialty Care Team Description 10/17/2024 Seafood Clerk Report Abstract, Provider Scheduled Orders Name Type [...] POSITIVE( A) ND 07/11/2023 3:53 PM EDT [facility] Comment: Assay cutoff 100 ng/mL Semi-quantitative assay for screening purposes only. Unconfirmed screening result should not be used for non-medical purposes. *ALTERNATE METHOD CONFIRMATION DONE UPON REQUEST ONLY* 07/11/2023 1:47 PM EDT 07/11/2023 1:48 PM EDT Narrative [facility] - 07/11/2023 3:53 PM EDT Release to patient->Immediate Darrel Tony MD LAB [facility] * (ABNORMAL) DRUG OF ABUSE SCREEN (07/11/2023 1:47 PM EDT) BENZODIAZEPINE, URINE NONE DETECTED ND 07/11/2023 3:48 PM EDT [facility] Comment: Assay cutoff 200 ng/mL Semi-quantitative assay for screening purposes only. Unconfirmed screening result should not be used for non-medical purposes. *ALTERNATE METHOD CONFIRMATION DONE UPON REQUEST ONLY* OPIATES, URINE POSITIVE(A) ND 3:48 PM EDT [facility] Comment: Assay cutoff 300 ng/mL Semi-quantitative assay for screening purposes only. Unconfirmed screening result should not be used for non-medical purposes. *ALTERNATE METHOD CONFIRMATION DONE UPON REQUEST ONLY* BARBITURATES, URINE NONE DETECTED ND 07/11/2023 3:48 PM EDT [facility] Comment: Assay cutoff 200 ng/mL Semi-quantitative assay for screening purposes only. Unconfirmed screening result should not be used for non-medical purposes. *ALTERNATE METHOD CONFIRMATION DONE UPON REQUEST ONLY* PAIN AMPHETAMINES NONE DETECTED ND 07/11/2023 3:48 PM EDT [facility] Comment: Assay cutoff 1000 ng/mL Semi-quantitative assay for screening purposes only. Unconfirmed screening result should not be used for non-medical purposes. *POSITIVE RESULTS ARE AUTOMATICALLY SENT FOR ALTERNATE METHOD CONFIRMATION* PAIN COCAINE NONE DETECTED ND 07/11/2023 3:48 PM EDT [facility] [employer] Comment: Assay cutoff 300 ng/mL Semi-quantitative assay for screening purposes only. Unconfirmed screening result should not be used for non-medical purposes. *POSITIVE RESULTS ARE AUTOMATICALLY SENT FOR ALTERNATE METHOD CONFIRMATION* PAIN CANNABINOID NONE DETECTED ND 07/11/2023 3:48 PM EDT [facility] [employer] Comment: Assay cutoff 50 ng/mL Semi-quantitative assay for screening purposes only. Unconfirmed screening result should not be used for non-medical purposes. *POSITIVE RESULTS ARE AUTOMATICALLY SENT FOR ALTERNATE METHOD CONFIRMATION* 07/11/2023 1:47 PM EDT 07/11/2023 1:48 PM EDT Narrative [facility] - 07/11/2023 3:48 PM EDT Release to patient->Immediate Darrel Tony MD LAB [facility] documented in this encounter Visit Diagnoses [...] (HCC) documented in this encounter Care Teams Seam Hammerer Relationship Specialty Start Date End Date Darrel Tony MD [address] [place] [address] PCP - General Internal Medicine 11/22/21 documented as of this encounter
--- OUTSIDE RECORDS SUMMARY | 2024-05-09 13:03 | XMS_ITS | Encounter Summary ---
Author Organization [facility] Address [address] [place] [address] Care Team Providers Care Pretzel Packer Name Role Phone Darrel Tony MD Primary Care Provider [phone] [phone] Encounter Details Date Type Department Care Team Description 08/27/2022 CGM Report Medical Records [address] [place] [address] Abstract, Provider Social History Tobacco Use Types [...] Date Type Specialty Care Team Description 10/17/2024 Synthetic Chemist Report Abstract, Provider documented as of this encounter Visit Diagnoses Not on filedocumented in this encounter Care Teams Pretzel Packer Relationship Specialty Start Date End Date Darrel Tony MD [address] [place] [address] PCP - General Internal Medicine 11/22/21 documented as of this encounter
--- OUTSIDE RECORDS SUMMARY | 2024-05-09 13:03 | XMS_ITS | Encounter Summary ---
Author Organization [facility] Address [address] [place] [address] Care Team Providers Care Surgeon Assistant Name Role Phone Darrel Tony MD Primary Care Provider +1 -[phone] Encounter Details Date Type Department Care Team Description 08/10/2022 Pt. Non Urgent Medical Question Adult Medicine - [address] [address] Darrel Tony MD [address] [place] [address] Social History Tobacco Use Types Packs/Day Years [...] Date Type Specialty Care Team Description 10/17/2024 Dough Raiser Report Abstract, Provider documented as of this encounter Visit Diagnoses Not on filedocumented in this encounter Care Teams Surgeon Assistant Relationship Specialty Start Date End Date Darrel Tony MD [address] [place] [address] PCP - General Internal Medicine 11/22/21 documented as of this encounter
--- OUTSIDE RECORDS SUMMARY | 2024-05-09 13:03 | XMS_ITS | Encounter Summary ---
Author Organization [facility] Address [address] [place] [address] Care Team Providers Care Rehab Tech Name Role Phone Darrel Tony MD Primary Care Provider +1 -[phone] Encounter Details Date Type Department Care Team Description 09/12/2022 CGM Report Medical Records [address] [place] [address] Abstract, Provider Social History Tobacco Use Types [...] Date Type Specialty Care Team Description 10/17/2024 Ladler Report Abstract, Provider documented as of this encounter Visit Diagnoses Not on filedocumented in this encounter Care Teams Rehab Tech Relationship Specialty Start Date End Date Darrel Tony MD [address] [place] [address] PCP - General Internal Medicine 11/22/21 documented as of this encounter
--- OUTSIDE RECORDS SUMMARY | 2024-05-09 13:03 | XMS_ITS | Encounter Summary ---
Author Organization [facility] Address [address] [place] [address] Care Team Providers Care Repairer Controller Tester Name Role Phone Darrel Tony MD Primary Care Provider [phone] [phone] Encounter Details Date Type Department Care Team Description 01/25/2023 Pt. Non Urgent Medical Question OBGYN - [address] [address] Daniella Marion, [address] [place] [address] Social History Tobacco Use Types Packs/Day Years [...] encounter Miscellaneous Notes * Telephone Encounter - Lorena Wasserman R.N. - 01/25/2023 5:09 PM ESTFrom: Galina Doyle To: Ganesh Marion Sent: 01/25/2023 4:43 PM EST Subject: Stefankiki Serrano it's Filicia, I missed my last appointment with you and need to reschedule GRABIEL, due to high sugars I have a yeast infection and an odor and boils which indicates another infection. Any day and any time before 2 is great. Please and thank you in advance. Galina Doyle documented in this encounter Plan of Treatment Upcoming Encounters Date Type Specialty Care Team Description 10/17/2024 Job Molder Report Abstract, Provider documented as of this encounter Visit Diagnoses Not on filedocumented in this encounter Care Teams Repairer Controller Tester Relationship Specialty Start Date End Date Darrel Tony MD [address] [place] [address] PCP - General Internal Medicine 11/22/21 documented as of this encounter
--- OUTSIDE RECORDS SUMMARY | 2024-05-09 13:03 | XMS_ITS | Encounter Summary ---
Author Organization [facility] Address [address] [place] [address] Care Team Providers Care Hair Colorist Name Role Phone Darrel Tony MD Primary Care Provider +1 -[phone] Encounter Details Date Type Department Care Team Description 02/20/2023 Hospital Medical Records [address] [place] [address] Rufus Bernard MD [address] [place] [address] Social History Tobacco Use Types Packs/Day Years [...] Date Type Specialty Care Team Description 10/17/2024 Petroleum Inspector Supervisor Report Abstract, Provider documented as of this encounter Visit Diagnoses Not on filedocumented in this encounter Care Teams Hair Colorist Relationship Specialty Start Date End Date Darrel Tony MD [address] [place] [id number] PCP - General Internal Medicine 11/22/21 documented as of this encounter
--- OUTSIDE RECORDS SUMMARY | 2024-05-09 13:03 | XMS_ITS | Encounter Summary ---
Author Organization [facility] Address [address] [place] [address] Care Team Providers Care Pool Table Operator Name Role Phone Colette Anderson MD Primary Care Provider U Darrel Castro MD Primary Care Provider +1 -[phone] Reason for Visit * Reason Onset Date Comments REFERRAL 04/09/2018 Encounter Details Date Type Department Care Team Description 04/09/2018 Telephone Rheumatology - [address] [address] Colette Anderson MD REFERRAL Social History Tobacco Use Types Packs/Day [...] encounter Miscellaneous Notes * Telephone Encounter - Lea Llamas - 04/09/2018 3:26 PM EST Patient was referred to the Rheumatology department. Two phone calls were made and a letter was sent but patient has not responded. No further action will be taken with this referral. documented in this encounter Plan of Treatment Upcoming Encounters Date Type Specialty Care Team Description 10/17/2024 Muffler Tender Report Abstract, Provider documented as of this encounter Visit Diagnoses Not on filedocumented in this encounter Care Teams Pool Table Operator Relationship Specialty Start Date End Date Colette Anderson MD PCP - General Internal Medicine 02/26/1811/06 Darrel Tony MD [address] [place] [address] PCP - General Internal Medicine 11/22/21 documented as of this encounter
--- OUTSIDE RECORDS SUMMARY | 2024-05-09 13:03 | XMS_ITS | Encounter Summary ---
Author Organization [facility] Address [address] [place] [address] Care Team Providers Care Wash Operator Name Role Phone Colette Anderson MD Primary Care Provider U Darrel Castro MD Primary Care Provider +1 -[phone] Encounter Details Date Type Department Care Team Description 09/01/2020 Water Purifier Operator Report Medical Records [address] [place] [address] Zeny Howell NP Social History Tobacco Use Types Packs/Day Years [...] Date Type Specialty Care Team Description 10/17/2024 Water Purifier Operator Report Abstract, Provider documented as of this encounter Visit Diagnoses Not on filedocumented in this encounter Care Teams Wash Operator Relationship Specialty Start Date End Date Colette Anderson MD PCP - General Internal Medicine 02/26/1811/06 Darrel Tony MD [address] [place] [address] PCP - General Internal Medicine 11/22/21 documented as of this encounter
--- OUTSIDE RECORDS SUMMARY | 2024-05-09 13:03 | XMS_ITS | Encounter Summary ---
Author Organization [facility] Address [address] [place] [address] Care Team Providers Care Blast Furnace Keeper Name Role Phone Darrel Tony MD Primary Care Provider +1 -[phone] Encounter Details Date Type Department Care Team Description 10/25/2022 Telephone Adult Medicine [address] [address] Darrel Tony MD [address] [place] [address] Social History Tobacco Use Types Packs/Day Years [...] Date Type Specialty Care Team Description 10/17/2024 Carpenter Assembler Report Abstract, Provider documented as of this encounter Visit Diagnoses Not on filedocumented in this encounter Care Teams Blast Furnace Keeper Relationship Specialty Start Date End Date Darrel Tony MD [address] [place] [address] PCP - General Internal Medicine 11/22/21 documented as of this encounter
--- OUTSIDE RECORDS SUMMARY | 2024-05-09 13:03 | XMS_ITS | Data Portability ---
Author Organization [facility] Address [address] [place] [address] Care Team Providers Care China Decorator Name Role Phone [facility] Primary Care Provi nahum HIM CCA OTHER Assessment No assessment recorded. Plan of Treatment Reminders Order Date Submit Date Provider Last Modified By Organization Details Last Modified Time Details Appointments None recorded. Lab BMP, serum or plasma [address], [address] [place] [address], [id number] 5 13:22:39 rapid SARS CoV 2 Ag, QL IA, respiratory specimen [address] [place] [address], [id number] 5 13:22:39 rapid flu (A+B) [address] [place] [address], [id number] 5 13:22:39 Referral None recorded. Procedures None recorded. Surgeries None recorded. Imaging None recorded. Medication Orders ondansetron 4 mg disintegrat ing tablet 2024 [facility][id number], [address] [place], [address], 5 12:41:16 Patient TargetsNo targets recorded. Patient [...] Name and Address Organization Details Recorded Time 96094 trazodone medicatio n Not available Not available Not available 03/19/2024 71049 RxNorm Not Available [facility] 5 10:04:02 64969 tramadol medicatio n Not available Not available Not available 03/19/2024 48460 RxNorm Not Available [facility] 5 10:04:02 Medications Name Sig Start Date [...] Address Organization Details Last Updated DateTime 5 216957. 816 g 175.26 cm 97.9 [degF] 100 [...] SNOMED-CT Code Diagnosis ICD10 Code Diagnosis Note [id number] Sushma Sanchez MD Main - [address] [address] 03/19/2024 12:19:53 03/19/2024 17:52:46 Nausea and vomiting [id number] R11.2 Evaluation in the field was performed by my billing auditor colleague, as noted above, I provided real-time [...] course of cephalexin 1 wk ago. On billing auditor eval VS wnl, exam unremarkab le. POC [...] [employer] Member ID Guarantor Name 03/19/2024 1 [facility] - DOS ON OR AFTER 2022 - DUAL ELIGIBLE - INTERMEDIATE OPTIONS AND ONE CARE (MEDICARE REPLACEMENT/ADV ANTAGE - HMO) Galina Doyle [id number] Galina Doyle Notes Date Note Type Note [...] Allergies Reviewed at 03/19/2024 - 10:04 Comments: Small Arms Repairer verified the name//address and phone number. Pt [...] s/s and seek emergency treatment if needed Traffic Supervisor Organization Information for Abel Ron [employer] Legal Name: [facility] Address: [address] [place] [address], BENITA Cisneros [address], Donations Attendant: Vito FITZGERALDIA No.: [id number] Traffic Supervisor POC Test Results from Abel [facility] (12:25:05) pH: 7.38 pH units pCO2: 49.1 [...] .................... .................... .................... .................... .................... .................... . Traffic Supervisor Note From Abel Ron: This 58-year-old female [...] .................... .................... .................... .................... .................... .................... . [facility] Consulted: uSshma Sanchez .................... .................... .................... .................... .................... .................... .................... . Disposition: Fulfilled Sushma Sanchez MD [address] [place] [address],[address] [facility], [place], [address], MILEY HATCH 03/19/2024 13:23:04 OBGyn Episode No OBEpisode recorded.
--- OUTSIDE RECORDS SUMMARY | 2024-05-09 13:03 | XMS_ITS | Encounter Summary ---
Author Organization [facility] Address [address] [place] [address] Care Team Providers Care Laborer Turkey Farm Name Role Phone Colette Anderson MD Primary Care Provider U Darrel Castro MD Primary Care Provider +1 -[phone] Reason for Visit * Reason Onset Date Comments Emg 06/17/2020 Encounter Details Date Type Department Care Team Description 06/17/2020 Telephone Physiatry - [address] [address] Leona Mays MD [address] [place] [address] [place], [place] [id number] Emg Social History Tobacco Use Types Packs/Day Years [...] Miscellaneous Notes * Telephone Encounter - Vivian Page - 06/17/2020 12:40 PM EDT Patient is referred for: EMG Reason for Test: loss of sensation - 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 Body Part: Upper Extremities by Dr Warner. FYI Patient no showed her EMG with Dr Rosario on 06/04/20. We left two messages to reschedule and no response from the patient. Thank You documented in this encounter Plan of Treatment Upcoming Encounters Date Type Specialty Care Team Description 10/17/2024 Combustion Engineer Report Abstract, Provider documented as of this encounter Visit Diagnoses Not on filedocumented in this encounter Care Teams Laborer Turkey Farm Relationship Specialty Start Date End Date Colette Anderson MD PCP - General Internal Medicine 02/26/1811/06 Darrel Tony MD [address] [place] [address] PCP - General Internal Medicine 11/22/21 documented as of this encounter
--- OUTSIDE RECORDS SUMMARY | 2024-05-09 13:03 | XMS_ITS | Encounter Summary ---
Author Organization [facility] Address [address] [place] [address] Care Team Providers Care Administrative Assistant Name Role Phone Darrel Tony MD Primary Care Provider +1 -[phone] Encounter Details Date Type Department Care Team Description 01/30/2023 CGM Report Medical Records [address] [place] [address] Abstract, Provider Social History Tobacco Use Types [...] Date Type Specialty Care Team Description 10/17/2024 Assembler Aircraft Power Plant Report Abstract, Provider documented as of this encounter Visit Diagnoses Not on filedocumented in this encounter Care Teams Administrative Assistant Relationship Specialty Start Date End Date Darrel Tony MD [address] [place] [address] PCP - General Internal Medicine 11/22/21 documented as of this encounter
--- OUTSIDE RECORDS SUMMARY | 2024-05-09 13:03 | XMS_ITS | Encounter Summary ---
Author Organization [facility] Address [address] [place] [address] Care Team Providers Care Placement Assistant Name Role Phone Darrel Tony MD Primary Care Provider +1 -[phone] Encounter Details Date Type Department Care Team Description 08/10/2022 Pt. Non Urgent Medical Question Adult Medicine - [address] [address] Darrel Tony MD [address] [place] [address] Social History Tobacco Use Types Packs/Day Years [...] the Dr orders ignored? I've called the substance abuse prevention coordinator service, no response, what do I have to do ? documented in this encounter Plan of Treatment Upcoming Encounters Date Type Specialty Care Team Description 10/17/2024 Director Cloud Transformation Report Abstract, Provider documented as of this encounter Visit Diagnoses Not on filedocumented in this encounter Care Teams Placement Assistant Relationship Specialty Start Date End Date Darrel Tony MD [address] [place] [address] PCP - General Internal Medicine 11/22/21 documented as of this encounter
--- OUTSIDE RECORDS SUMMARY | 2024-05-09 13:03 | XMS_ITS | Encounter Summary ---
Author Organization [facility] Address [address] [place] [address] Care Team Providers Care Supervisor Paste Mixing Name Role Phone Darrel Tony MD Primary Care Provider +1 [phone] Encounter Details Date Type Department Care Team Description 01/31/2023 Orders Only Medical Records [address] [place] [address] Cade Seals MD Social History Tobacco Use [...] Date Type Specialty Care Team Description 10/17/2024 Weaver Axminster Report Abstract, Provider documented as of this encounter Procedures Procedure Name Priority Date/Time Associated Diagnosis Comments OUTSIDE CT Routine 01/29/2023 OUTSIDE PLAIN FILM Routine 01/29/2023 documented in this encounter Results * OUTSIDE PLAIN FILM (01/29/2023) [facility] RADIOLOGY * OUTSIDE CT (01/29/2023) Cade Seals MD RADIOLOGY documented in this encounter Visit Diagnoses Not on filedocumented in this encounter Care Teams Supervisor Paste Mixing Relationship Specialty Start Date End Date Darrel Tony MD [address] [place] [address] PCP - General Internal Medicine 11/22/21 documented as of this encounter
--- OUTSIDE RECORDS SUMMARY | 2024-05-09 13:03 | XMS_ITS | Encounter Summary ---
Author Organization [facility] Address [address] [place] [address] Care Team Providers Care Mine Shifter Name Role Phone Colette Anderson MD Primary Care Provider U Darrel Castro MD Primary Care Provider +1 -[phone] Reason for Visit * Reason Onset Date Comments Provider Call Back 05/29/2018 Encounter Details Date Type Department Care Team Description 05/29/2018 Telephone Adult Medicine B - [place] [address] [place] [address] Trish Hyatt PA-C [address] [place] [address] Provider Call Back Social History Tobacco Use [...] which was seen on 05/01/18. Faxed to [phone] Caller offered to speak with the nurse for assistance: YES Response: Patient offered to speak with nurse for assistance and patient agreed. Message forwarded to nurse. documented in this encounter Plan of Treatment Upcoming Encounters Date Type Specialty Care Team Description 10/17/2024 Freelance Digital Project Manager Report Abstract, Provider documented as of this encounter Visit Diagnoses Not on filedocumented in this encounter Care Teams Mine Shifter Relationship Specialty Start Date End Date Colette Anderson MD PCP - General Internal Medicine 02/26/1811/06 Darrel Tony MD [address] [place] [address] PCP - General Internal Medicine 11/22/21 documented as of this encounter
--- OUTSIDE RECORDS SUMMARY | 2024-05-09 13:03 | XMS_ITS | Encounter Summary ---
Author Organization [facility] Address [address] [place] [address] Care Team Providers Care Roofer Helper Vinyl Coating Name Role Phone Darrel Tony MD Primary Care Provider +1 -[phone] Reason for Visit * Reason Onset Date Comments refill request 09/11/2022 Encounter Details Date Type Department Care Team Description 09/11/2022 Refill Internal Medicine - [place] [address] [facility], [address] [place] [address] Darrel Tony MD [address] [place] [address] refill request Social History Tobacco Use Types [...] Zolpidem Tartrate 10 Mg Tablet 30 30 [facility] [address] [id number] [facility] (1855) 0/0 0.50 [place] 08/24/2022 08/24/2022 2 Gabapentin 600 Mg Tablet 168 28 [facility] [id number] [facility] (1855) 0/2 4.02 [place] 08/15/2022 08/15/2022 2 Oxycodone Hcl (Ir) 10 Mg Tab 42 28 [place] [id number] [facility] (1855) 0/0 22.50 [place] 07/29/2022 2022 2 Gabapentin 600 Mg Tablet 168 28 [facility] [id number] [facility] (1855) 0/1 4.02 [place] 07/29/2022 06/13/2022 2 Zolpidem Tartrate 10 Mg Tablet 28 28 [facility] [address] [id number] [facility] (1855) 0/0 0.50 [place] 07/15/2022 07/15/2022 2 Oxycodone Hcl (Ir) 10 Mg Tab 42 14 Ka [facility] [id number] [facility] (1855) 0/0 45.00 [place] 06/24/2022 2022 1 * Telephone Encounter - Gayle Gandara - 09/13/2022 9:36 AM EDT [facility] [address] [facility], asking if [facility] can be sent [facility] [address] (Listed below) * Telephone Encounter - Marcie [...] Zolpidem Tartrate 10 Mg Tablet 30 30 [facility] [address] [id number] [facility] (1855) 0/0 0.50 L[place] 08/24/2022 08/24/2022 2 Gabapentin 600 Mg Tablet 168 28 [facility] [id number] [facility] (1855) 0/2 4.02 [place] 08/15/2022 08/15/2022 2 Oxycodone Hcl (Ir) 10 Mg Tab 42 28 [place] [id number] [facility] (1855) 0/0 22.50 [place] 07/29/2022 2022 2 Gabapentin 600 Mg Tablet 168 28 [facility] [id number] [facility] (1855) 0/1 4.02 [place] 07/29/2022 06/13/2022 2 Zolpidem Tartrate 10 Mg Tablet 28 28 [facility] [address] [id number] [facility] (1855) 0/0 0.50 [place] 07/15/2022 07/15/2022 2 Oxycodone Hcl (Ir) 10 Mg Tab 42 14 [place] [id number] [facility] (1855) 0/0 45.00 [place] 06/24/2022 2022 1 Gabapentin 600 Mg Tablet 180 30 [facility] [id number] [facility] (5398) 2/3 4.02 [place] 06/22/2022 05/02/2022 1 Zolpidem Tartrate 10 Mg Tablet [address] [facility] [id number] [facility] (1855) 0/0 0.50 [place] 06/13/2022 06/13/2022 1 Oxycodone Hcl (Ir) 5 Mg Tablet 84 28 [place] [id number] [facility] (1855) 0/0 22.50 [place] 05/23/2022 03/07/2022 1 Zolpidem Tartrate 10 Mg Tablet 30 30 Je [place] [id number] [facility] (1855) 1/1 0.50 [place] 05/21/2022 2022 1 Gabapentin 600 Mg Tablet 180 30 Ja Iraj [id number] [facility] (7608) 1/3 4.02 [place] 05/12/2022 05/12/2022 1 Oxycodone Hcl (Ir) 5 Mg Tablet 84 28 Al Jar [id number] [facility] (1855) 0/0 22.50 [place] 04/25/2022 04/25/2022 1 Zolpidem Tartrate 10 Mg Tablet 30 30 Je Cam [id number] [facility] (1855) 0/0 0.50 [place] 2022 2022 1 Gabapentin 600 Mg Tablet 180 30 Ja Iraj [id number] [facility] (7608) 0/3 4.02 LM documented in this encounter Plan of Treatment Upcoming Encounters Date Type Specialty Care Team Description 10/17/2024 News Videotape Editor Report Abstract, Provider documented as of this encounter Visit Diagnoses Not on filedocumented in this encounter Care Teams Roofer Helper Vinyl Coating Relationship Specialty Start Date End Date Darrel Tony MD [address] [place] [address] PCP - General Internal Medicine 11/22/21 documented as of this encounter
--- OUTSIDE RECORDS SUMMARY | 2024-05-09 13:04 | XMS_ITS | Encounter Summary ---
Author Organization [facility] Address [address] [place] [address] Care Team Providers Care Slide Fastener Chain Assembler Name Role Phone Colette Anderson MD Primary Care Provider U Darrel Castro MD Primary Care Provider +1 -[phone] Reason for Referral * Non APRIL (Priority) - Unable to reach/declined Specialty Diagnoses / Procedures Referred By Contac t Referred To Contact Nephrology Procedures REFERRAL TO NEPHROLOGY Colette Anderson MD [address] [place] [address] [address] [address] Referral ID Status Reason Start Date Expiration Date V isits Requested Visits Authorized [id number] 02/18 LTR Unable to reach/decli cameron 01/29/2019 01/29/2020 1 1 Encounter Details Date Type Department Care Team Description 01/29/2019 Orders Only Adult Medicine B - [address] [address] Colette Anderson MD Type 2 diabetes mellitus without complication, with long-term current use of insulin (HCC) (Primary Dx) Social History Tobacco Use Types Packs/Day Years [...] Date Type Specialty Care Team Description 10/17/2024 Hot Wort Settler Report Abstract, Provider documented as of this encounter Results * HEMOGLOBIN A1C (05/02/2019 9:08 AM EDT) GLYCATED HEMOGLOBIN A1C 5.2 <6.5 % 05/02/2019 1:56 PM EDT [facility] ESTIMATED AVERAGE GLUCOSE 103 mg/dL 05/02/2019 1:56 PM EDT [facility] 05/02/2019 9:08 AM EDT 05/02/2019 9:09 AM EDT Colette Jennings MD LAB [facility] documented in this encounter Visit Diagnoses Diagnosis Type 2 diabetes mellitus without complication, with long-term current use of insulin (HCC)- Primary documented in this encounter Care Teams Slide Fastener Chain Assembler Relationship Specialty Start Date End Date Colette Anderson MD PCP - General Internal Medicine 02/26/1811/06 Darrel Tony MD [address] [place] [address] PCP - General Internal Medicine 11/22/21 documented as of this encounter
--- OUTSIDE RECORDS SUMMARY | 2024-05-09 13:04 | XMS_ITS | Encounter Summary ---
Author Organization [facility] Address [address] [place] [address] Care Team Providers Care Electrical Power Station Technician Name Role Phone Colette Anderson MD Primary Care Provider U Darrel Castro MD Primary Care Provider +1 -[phone] Reason for Visit * Reason Onset Date Comments TEST RESULTS 03/02/2018 Encounter Details Date Type Department Care Team Description 03/02/2018 Telephone Adult Medicine - [address] [address] Yamileth Negrete PA-C [address] [place] [address] TEST RESULTS Social History Tobacco Use Types Packs/Day Years [...] Telephone Encounter - Melinda [place] M.A. - 03/02/2018 11:12 AM EST left message to call back, please put call through to [phone] or re-message to b- side if no answer * Telephone Encounter - Melinda [place] M.A. - 03/02/2018 11:12 AM EST ----- Message from Yamileth Negrete PA-C sent at 03/02/2018 8:22 AM EST ----- Please inform patient that her urine testing revealed +protein which is likely related to her diabetes, she is currently on a medication that is protective against this, Lisinopril. Her blood sugar was elevated at 361, hopefully the adjustments we made to her medications will help bring this down, her A1c is still pending. Her urinalysis revealed +white blood cells and bacteria, I am going to await urine culture, as this could be secondary to her current yeast infection. I would like her to schedule a 2 week diabetes follow-up. documented in this encounter Plan of Treatment Upcoming Encounters Date Type Specialty Care Team Description 10/17/2024 Senior Linux Unix Engineer Report Abstract, Provider documented as of this encounter Visit Diagnoses Not on filedocumented in this encounter Care Teams Electrical Power Station Technician Relationship Specialty Start Date End Date Colette Anderson MD PCP - General Internal Medicine 02/26/1811/06 Darrel Tony MD [address] [place] [address] PCP - General Internal Medicine 11/22/21 documented as of this encounter
--- OUTSIDE RECORDS SUMMARY | 2024-05-09 13:04 | XMS_ITS | Encounter Summary ---
Author Organization [facility] Address [address] [place] [address] Care Team Providers Care Jelly Maker Name Role Phone Darrel Tony MD Primary Care Provider +1 -[phone] Encounter Details Date Type Department Care Team Description 07/05/2023 Release of Information Medical Records [address] [place] [address] Abstract, Provider Social History Tobacco Use Types [...] Date Type Specialty Care Team Description 10/17/2024 Floor Coverer Report Abstract, Provider documented as of this encounter Visit Diagnoses Not on filedocumented in this encounter Care Teams Jelly Maker Relationship Specialty Start Date End Date Darrel Tony MD [address] [place] [address] PCP - General Internal Medicine 11/22/21 documented as of this encounter
--- OUTSIDE RECORDS SUMMARY | 2024-05-09 13:04 | XMS_ITS | Encounter Summary ---
Author Organization [facility] Address [address] [place] [address] Care Team Providers Care Counter Intelligence Agent Name Role Phone Darrel Tony MD Primary Care Provider [phone] -[phone] Reason for Visit * Reason Onset Date Comments refill request 05/15/2023 Encounter Details Date Type Department Care Team Description 05/15/2023 Telephone Adult Medicine [address] [address] Darrel Tony MD [address] [place] [address] refill request Social History Tobacco Use Types [...] N/A Patients current insurance carrier is: Payor: [employer] MCR / Plan: [facility] / Product Type: HMO [id number] documented in this encounter Plan of Treatment Upcoming Encounters Date Type Specialty Care Team Description 10/17/2024 Financial Specialist Report Abstract, Provider documented as of this encounter Visit Diagnoses Not on filedocumented in this encounter Care Teams Counter Intelligence Agent Relationship Specialty Start Date End Date Darrel Tony MD [address] [place] [address] PCP - General Internal Medicine 11/22/21 documented as of this encounter
--- OUTSIDE RECORDS SUMMARY | 2024-05-09 13:04 | XMS_ITS | Encounter Summary ---
Author Organization [facility] Address [address] [place] [address] Care Team Providers Care Zipper Joiner Name Role Phone Colette Anderson MD Primary Care Provider U Darrel Castro MD Primary Care Provider +1 -[phone] Encounter Details Date Type Department Care Team Description 02/23/2021 Orders Only Endocrinology - [place] [address] [place] [address] Trish Hyatt PA-C [address] [place] [address] Type 2 diabetes mellitus with microalbuminuria, with [...] Date Type Specialty Care Team Description 10/17/2024 Dressing Room Porter Report Abstract, Provider documented as of this encounter Visit Diagnoses Diagnosis Type 2 diabetes mellitus with microalbuminuria, with long-term current use of insulin (HCC) documented in this encounter Care Teams Zipper Joiner Relationship Specialty Start Date End Date Colette Anderson MD PCP - General Internal Medicine 02/26/1811/06 Darrel Tony MD [address] [place] [address] PCP - General Internal Medicine 11/22/21 documented as of this encounter
--- OUTSIDE RECORDS SUMMARY | 2024-05-09 13:04 | XMS_ITS | Encounter Summary ---
Author Organization [facility] Address [address] [place] [address] Care Team Providers Care Hot Repairman Name Role Phone Colette Anderson MD Primary Care Provider U Darrel Castro MD Primary Care Provider +1 -[phone] Encounter Details Date Type Department Care Team Description 10/02/2019 Release of Information Medical Records [address] [place] [address] Abstract, Provider Social History Tobacco Use Types [...] Date Type Specialty Care Team Description 10/17/2024 Line Palletizer Report Abstract, Provider documented as of this encounter Visit Diagnoses Not on filedocumented in this encounter Care Teams Hot Repairman Relationship Specialty Start Date End Date Colette Anderson MD PCP - General Internal Medicine 02/26/1811/06 Darrel Tony MD [address] [place] [address] PCP - General Internal Medicine 11/22/21 documented as of this encounter
--- OUTSIDE RECORDS SUMMARY | 2024-05-09 13:04 | XMS_ITS | Encounter Summary ---
Author Organization [facility] Address [address] [place] [address] Care Team Providers Care Circus Laborer Name Role Phone Darrel Tony MD Primary Care Provider +1 -[phone] Reason for Visit * Reason Onset Date Comments Information Needed 06/26/2023 [facility] Encounter Details Date Type Department Care Team Description 06/26/2023 Telephone Adult Medicine [address] [address] Darrel Tony MD [address] [place] [address] Information Needed ([facility]) Social History Tobacco Use Types Packs/Day Years [...] encounter Miscellaneous Notes * Telephone Encounter - Babatunde MillerDayanara - 06/26/2023 3:57 PM EDT Information Needed Who is calling: Other Fax from [facility] Information being requested? Recent office visit and physical for the pt If other information is needed, was an ASHOK signed? YES How is the information to be communicated back to the caller? Faxed to Carlos forrest [place] @ [phone] documented in this encounter Plan of Treatment Upcoming Encounters Date Type Specialty Care Team Description 10/17/2024 Heel Pricker Report Abstract, Provider documented as of this encounter Visit Diagnoses Not on filedocumented in this encounter Care Teams Circus Laborer Relationship Specialty Start Date End Date Darrel Tony MD [address] [place] [address] PCP - General Internal Medicine 11/22/21 documented as of this encounter
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
--- OUTSIDE RECORDS SUMMARY | 2024-05-09 13:04 | XMS_ITS | Clinical Summary ---
Author Organization [facility] [address] [facility] Building Address [address] [place] [address] Phone Care Team Providers Care Senior Oracle Applications Developer Name Role Phone Darrel Tony MD Primary Care Provider [phone] [phone] Allergies Active Allergy Reactions Criticality Noted Date Comments Tramadol Rash 11/08/2023 Trazodone Rash 11/08/2023 Acetaminophen Headache 04/08/2024 Per pt Medications NON FORMULARY Na Sulfate-K Sulfate-Mg Sulf (Suprep [...] THE SKIN AT BEDTIME OR DIRECTED Active UNKNOWN TO PATIENT Incontinence Supply Disposable [...] any 24 hour period. - Transdermal Active hydroxychloroq uine (PLAQUENIL) 200 mg tablet Take 1 Tab [...] day in the morning. 12/02/19 24 Active cholecalcifero l (VITAMIN D-3) 50 mcg (2,000 unit) tabletIndicati ons:Vitamin D deficiency, unspecified TAKE 1 TABLET BY [...] Oral 90 tablet 1 01/29/20 24 Active metFORMIN (GLUCOPHAGE) 1,000 mg tablet TAKE 1 TABLET BY MOUTH TWICE A DAY WITH FOOD 60 tablet 5 04/23/19 25 Active lisinopriL (PRINIVIL,ZEST RIL) 20 mg tablet Take 1 tablet (20 mg total) by mouth 1 (one) time each day. 28 tablet 1 04/23/19 25 Active hydroCHLOROthi azide (HYDRODIURIL) 50 mg tablet Take 1 tablet (50 mg total) by mouth 1 (one) time each day. 90 tablet 04/25/19 25 Active oxyCODONE (ROXICODONE) 10 mg immediate release tablet Take 0.5 tablets (5 mg total) by mouth every 8 (eight) hours if needed for severe pain for up to 28 days. Max Daily Amount: 15 mg 42 tablet 05/09/19 25 2024 Active metFORMIN (GLUCOPHAGE) 1,000 mg tablet Take 1 tablet (1,000 mg total) by mouth 2 (two) times a day with meals. 2024 Discontinued lisinopriL (PRINIVIL,ZEST RIL) 20 mg tablet Take 1 tablet (20 mg total) by mouth 1 (one) time each day. 2024 Discontinued hydroCHLOROthi azide (HYDRODIURIL) 50 mg tablet Take 1 tablet (50 mg total) by mouth 1 (one) time each day. 2024 Discontinued(R eorder) terbinafine (LamISIL) 250 mg tablet Take 1 tablet (250 mg total) by mouth 1 (one) time each day. 30 tablet 2 01/10/20 24 2024 oxyCODONE (ROXICODONE) 10 mg immediate release tablet Take 0.5 tablets (5 mg total) by mouth every 8 (eight) hours if needed for severe pain for up to 28 days. Max Daily Amount: 15 mg 42 tablet 03/04/25 Discontinued(R eorder) Active Problems Problem Noted Date Diagnosed Date [...] Encounters Date Type Department Care Team Description 04/30/2024 Telephone Internal Medicine - [address] [phone] Darrel Tony MD Med Refill 04/24/2024 Telephone Internal Medicine [address] [phone] Darrel Tony MD Forms/questionnaires ([employer]) 04/24/2024 Telephone Internal Medicine [address] [phone] Darrel Tony MD Forms/questionnaires ([employer]) 04/16/2024 Telephone Internal Medicine [address] [phone] Darrel Tony MD Request For Order(s) ([facility]) 03/27/2024 Telephone Internal Medicine [address] [phone] Darrel Tony MD Faxed Order ([facility] ) 03/26/2024 Telephone Internal Medicine - [address] [place] [phone] Darrel Tony MD faxed order 03/19/2024 [facility] [address] [place] [phone] Darrel Tony MD Chest Pain; GI Problem 02/29/2024 Telephone Internal Medicine - [address] [place] [phone] Darrel Tony MD Faxed Order ([facility] ) from Last 3 Months Immunizations [...] CHOLECYSTECTOMY 1998 PROCEDURE: LAPAROSCOPY, CHOLECYSTECTOMY SECTION PROCEDURE: [place] DELIVERY ONLY; COMMENT: X4 TUBAL LIGATION PROCEDURE: HISTORICAL TUBAL LIGATION CHOLECYSTECTOMY PROCEDURE: NH LAPAROSCOPY SURG CHOLECYSTECTOMY Medical History Medical History Date Comments Other pulmonary embolism and infarction 1998 DX:Other pulmonary embolism and infarction 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; COMMENT: scalp, arms; + biopsy 11/2005 Systemic lupus erythematosus (CMS/HCC) 09/01/2006 DX:Systemic lupus erythemato espinoza (HCC); COMMENT: DISCOID LESIONS, SUB-ACUTE SKIN LESIONS ARTHRALGIAS, MILD PROTEINURIA + Anti-DNA, Anti-DOMESTIC MAID, Anti-Sm, SS-A Esophageal reflux DX:Esophageal reflux Essential hypertension, benign 05/30/2005 D X:Essential hypertension, benign Obesity DX:Obesity 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 D X: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 Type 2 diabetes mellitus 03/01/2018 DX:Type 2 diabetes mellitus (HCC) Vitamin D deficiency 11/14/2019 DX:Vitamin D deficiency [...] 11:00 AM EDT Office Visit Endocrinology - [place] [address] [place] [address] Trish Hyatt PA [address] [place] [address] Health Maintenance Due Date Last Done Comments [...] Annual Urine Albumin-Creatinine Ratio (uACR) 08/31/2023 08/30/2022 Diabetes: Blood Sugar Control Test (HGBA1C) 04/24/2024 10/26/2023 Influenza Vaccine (Season Ended) 2024 12/17/2020, 11/26/2019, 12/06/2016, Additional history exists Diabetes: Annual GFR (Glomerular Filtration Rate) 10/25/2024 [...] Procedure Name Priority Date/Time Associated Diagnosis Comments PAP SMEAR Routine 05/03/2023 SCREENING MAMMOGRAPHY BI 2-VIEW BREAST INC CAD Routine 03/30/2023 9:57 AM EST Encounter for screening mammogram for malignant neoplasm of breast HM URINE ALBUMIN CREATININE RATIO Routine 08/30/2022 from Last 3 Months or Most Recently Relevant to Health Maintenance Results * Pap smear (05/03/2023) 05/03/2023 Narrative HISTORICAL TESTING LAB RESULTING AGENCY - 05/08/2023 2:56 PM EDT [id number] THINPREP PAP, IMAGED: NEGATIVE FOR SQUAMOUS INTRAEPITHELIAL LESION AND MALIGNANCY . QUINN CARMICHAEL(ASCP) (CASE ELECTRONICALLY SIGNED 05 08 2023) RESULT OF APTIMA HIGH RISK HPV ASSAY: HIGH RISK HPV: ??NEGATIVE (SEROTYPES 16,18,31,33,35,39,45,51,52,56,58,59,66,68) COMPLETED ON 2023-05-08 ADEQUACY: SATISFACTORY ENDOCERVICAL/TRANSFORMATION ZONE COMPONENT ABSENT. SOURCE: THINPREP PAP HPV ANY DX: ??REFLEX 16 AND 18, CERVICAL, IMAGED CLINICAL INFORMATION: HPV ANY DIAGNOSIS. MENOPAUSE, Z12.4 Jackeline Bright [facility] LAB CYTOLOGY ORDERABLES Jadyn roseann Result HISTORICAL TESTING LAB RESULTING AGENCY * [...] Most Recently Relevant to Health Maintenance Insurance [facility]IC[facility] Member Subscriber Plan / Payer (Ef fective 2023-Present) Name:Galina Doyle Relation to Subscriber:Self Name:Galina Doyle Payer ID:[id number] Group ID:[id number] Type:Not on file Address: [place] [address] [address] [address] Care Teams Senior Oracle Applications Developer Relationship Specialty Start Date End Date Darrel Tony MD [address] [place] [address] PCP - General Internal Medicine 11/22/21
--- OUTSIDE RECORDS SUMMARY | 2024-05-09 13:04 | XMS_ITS | Encounter Summary ---
Author Organization [facility] Address [address] [place] [address] Care Team Providers Care City Plant Supervisor Name Role Phone Darrel Tony MD Primary Care Provider [phone] [phone] Reason for Visit * Reason Onset Date Comments Faxed Order 03/22/2023 MRI Encounter Details Date Type Department Care Team Description 03/22/2023 Telephone [facility] Medical [facility] [address] [facility] [address] [place] [phone] Thuy Pennington, PA-C 175 [facility] [address] [place] [address] Faxed Order (MRI) Social History Tobacco Use [...] Date Type Specialty Care Team Description 10/17/2024 Agricultural Chemist Report Abstract, Provider documented as of this encounter Visit Diagnoses Not on filedocumented in this encounter Care Teams City Plant Supervisor Relationship Specialty Start Date End Date Darrel Tony MD [address] [place] [address] PCP - General Internal Medicine 11/22/21 documented as of this encounter
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
--- OUTSIDE RECORDS SUMMARY | 2024-05-09 13:04 | XMS_ITS | Encounter Summary ---
Author Organization [facility] Address [address] [place] [address] Care Team Providers Care Behaviour Support Teacher Name Role Phone Darrel Tony MD Primary Care Provider [phone] [phone] Encounter Details Date Type Department Care Team Description 09/07/2023 Refill [facility] [address] [facility] [address] [place] [phone] Thuy Pennington PAGurdeepC 175 [facility] [address] [place] [address] Social History Tobacco Use Types Packs/Day Years [...] Date Type Specialty Care Team Description 10/17/2024 Machine Iii Coremaker Report Abstract, Provider documented as of this encounter Visit Diagnoses Not on filedocumented in this encounter Care Teams Behaviour Support Teacher Relationship Specialty Start Date End Date Darrel Tony MD [address] [place] [address] PCP - General Internal Medicine 11/22/21 documented as of this encounter
--- OUTSIDE RECORDS SUMMARY | 2024-05-09 13:04 | XMS_ITS | Encounter Summary ---
Author Organization [facility] Address [address] [place] [address] Care Team Providers Care Thread Spooler Name Role Phone Darrel Tony MD Primary Care Provider [phone] [phone] Encounter Details Date Type Department Care Team Description 04/10/2023 Pt. Non Urgent Medical Question [facility] [address] [facility] [address] [place] [phone] Thuy Pennington, PA-C 175 [facility] [address] [place] [address] Social History Tobacco Use Types Packs/Day Years [...] Date Type Specialty Care Team Description 10/17/2024 Electronics Hardware Design Engineer Report Abstract, Provider documented as of this encounter Visit Diagnoses Not on filedocumented in this encounter Care Teams Thread Spooler Relationship Specialty Start Date End Date Darrel Tony MD [address] [place] [address] PCP - General Internal Medicine 11/22/21 documented as of this encounter
--- OUTSIDE RECORDS SUMMARY | 2024-05-09 13:04 | XMS_ITS | Encounter Summary ---
Author Organization [facility] Address [address] [place] [address] Care Team Providers Care Sawyer Cork Slabs Name Role Phone Colette Anderson MD Primary Care Provider U Darrel Castro MD Primary Care Provider [phone] [phone] Reason for Visit * Reason Comments E-prescribe Rx Request Encounter Details Date Type Department Care Team Description 11/02/2021 Refill Endocrinology - [place] [address] [place] [address] Trish Hyatt PA-C [address] [place] [address] E-prescribe Rx Request Social History Tobacco Use [...] Telephone Encounter - Mirtha Gilliland M.A. - 11/02/2021 2:25 PM EDT [place] 08/19/21 pended appt 11/19/21 Lab Results Component Value Date HGBA1C 6.9 08/19/2021 MALBUR 94.0 10/05/2021 MALBCR 34.3 10/05/2021 CHOL 140 04/16/2021 LDL 73 04/16/2021 HDL 45 04/16/2021 TRIG 112 04/16/2021 GLU 377 04/16/2021 CREAT 0.86 04/16/2021 * Telephone Encounter - Tram Alvarez - 11/02/2021 9:47 AM EDT Patient would like script to be: E-PRESCRIBED/FAXED TO PHARMACY WHEN WAS THE PATIENT'S LAST APPOINTMENT IN ADULT MEDICINE? 08/19/21 WHEN WAS THE LAST TIME THE PATIENT SAW THEIR PCP? 01/04/21 Does patient have an upcoming appointment? Yes 11/19/21 (THE MEDICATION REQUESTED IS ON THE MED [...] N/A Patients current insurance carrier is: Payor: [facility] FFS / [facility] / Product Type: MEDICAID RISK documented in this encounter Plan of Treatment Upcoming Encounters Date Type Specialty Care Team Description 10/17/2024 Hand Welt Butter Report Abstract, Provider documented as of this encounter Visit Diagnoses Not on filedocumented in this encounter Care Teams Sawyer Cork Slabs Relationship Specialty Start Date End Date Colette Anderson MD PCP - General Internal Medicine 02/26/1811/06 Darrel Tony MD [address] [place] [address] PCP - General Internal Medicine 11/22/21 documented as of this encounter
--- OUTSIDE RECORDS SUMMARY | 2024-05-09 13:04 | XMS_ITS | Encounter Summary ---
Author Organization [facility] Address [address] [place] [address] Care Team Providers Care Data Keyer Name Role Phone Manoj Ragland MD Primary Care Provider Un available Darrel Tony MD Primary Care Provider [phone] [phone] [facility], Pcp Primary Care Provider Stefan Regalado Primary Care Provider Unav Colette Marie MD Primary Care Provider U navailDarrel Dugan MD Primary Care Provider +1 -[phone] Encounter Details Date Type Department Care Team Description 11/19/2015 [facility] Adult [address] [address] Manoj Ragland MD Social History Tobacco Use Types Packs/Day [...] encounter Miscellaneous Notes * Telephone Encounter - Rosalee Gilmore M.A. - 11/19/2015 9:57 AM EDT Refused, pt has cancelled last 3 appts and has not seen new pcp yet. Will only fill when seen. Plaquenil to Rheumatology to see if they will fill. * Telephone Encounter - Rosalee Gilmore M.A. - 11/19/2015 9:51 AM EDTFrom: Galina Doyle To: Manoj Ragland MD Sent: 11/19/2015 9:35 AM EDT Subject: Medication Renewal Request Original authorizing provider: MD Galina Mancini would like a refill of the following medications: hydrochlorothiazide (HYDRODIURIL) 25 MG tablet [Manoj Ragland MD] cyclobenzaprine (FLEXERIL) 10 MG tablet [Manoj Ragland MD] hydroxychloroquine (PLAQUENIL) 200 MG tablet [Manoj Ragland MD] sertraline (ZOLOFT) 100 MG tablet [Manoj Ragland MD] Preferred pharmacy: [id number] [place] [address] Comment: Medication renewals requested in this message routed to other providers: lisinopril (PRINIVIL,ZESTRIL) 10 MG tablet [HARPREET SIMEON MD] diclofenac (VOLTAREN) 75 MG EC tablet [HARPREET SIMEON MD] labetalol (NORMODYNE) 200 MG tablet [HARPREET SIMEON MD] documented in this encounter Plan of Treatment Upcoming Encounters Date Type Specialty Care Team Description 10/17/2024 Car Blocker Report Abstract, Provider documented as of this encounter Visit Diagnoses Diagnosis Systemic lupus erythematosus- Primary documented in this encounter Care Teams Data Keyer Relationship Specialty Start Date End Date Manoj Ragland MD PCP - General Internal Medicine 09/02/15 Darrel Tony MD [address] [place] [address] PCP - General Internal Medicine 02/18/16 07/05/16 [facility], Pcp [address] [place] [address] PCP - General Internal Medicine 07/06/16 11/13/17 Stefan Johnson [address] [place] [address] PCP - General Internal Medicine 11/14/17 02/25/18 Colette Anderson MD [address] [place] [address] PCP - General Internal Medicine 02/26/18 11/21/21 Darrel Tony MD [address] [place] [address] PCP - General Internal Medicine 11/22/21 documented as of this encounter
--- OUTSIDE RECORDS SUMMARY | 2024-05-09 13:04 | XMS_ITS | Encounter Summary ---
Author Organization [facility] Address [address] [place] [address] Care Team Providers Care Manufacturing Director Name Role Phone Darrel Tony MD Primary Care Provider [phone] [phone] Encounter Details Date Type Department Care Team Description 10/16/2023 Orders Only Medical Records [address] [place] [address] Rufus Bernard MD [address] [place] [address] Social History Tobacco Use Types Packs/Day Years [...] Progress Notes * Macario Bernard MD - 11/11/2023 11:08 AM EDT Dear Galina, The polyp(s) that were removed during your colonoscopy were precancerous, but benign. Fortunately, we removed them and therefore, they will not cause any more problems in the future. Based on the number, the size, and the features of the polyp(s) removed, I recommend a follow-up colonoscopy in 5 years. Before, the 5 years are due, we will send you a reminder in the mail asking you to contact our office to have the colonoscopy scheduled. I would like to personally thank you for allowing us to take care of you. Please don't hesitate to call us for any questions or concerns. Regards, Gagandeep Bernard MD Board Certified Gastroenterology and Internal Medicine Transplant Hepatology [facility] documented in this encounter Plan of Treatment Upcoming Encounters Date Type Specialty Care Team Description 10/17/2024 Safety Representative Report Abstract, Provider documented as of this encounter Procedures Procedure Name Priority Date/Time Associated Diagnosis Comments OUTSIDE PATHOLOGY Routine 10/12/2023 documented in this encounter Results * OUTSIDE PATHOLOGY (10/12/2023) Rufus Bernard MD OUTSIDE LAB documented in this encounter Visit Diagnoses Not on filedocumented in this encounter Care Teams Manufacturing Director Relationship Specialty Start Date End Date Darrel Tony MD [address] [place] [address] PCP - General Internal Medicine 11/22/21 documented as of this encounter
--- OUTSIDE RECORDS SUMMARY | 2024-05-09 13:04 | XMS_ITS | Encounter Summary ---
Author Organization [facility] Address [address] [place] [address] Care Team Providers Care Pin Pusher Name Role Phone Manoj Ragland MD Primary Care Provider Un available Darrel Tony MD Primary Care Provider [phone] [phone] [facility], Pcp Primary Care Provider Stefan Regalado Primary Care Provider Unav Colette Marie MD Primary Care Provider U Darrel Castro MD Primary Care Provider [phone] -[phone] Reason for Referral * EXTERNAL (Routine) - Authorized/Booked Specialty Diagnoses / Procedures Referred By Cathryn goodson Referred To Contact MANPOWER DEVELOPMENT MANAGER / Genetics Diagnoses Family history of breast cancer Procedures REFERRAL TO EXTERNAL ADULT GENETIC COUNSELING-EXTERNAL Juliet Garcia PA-C [address] [place] [address] Thuy Mojica MD [address] [address] Referral ID Status Reason Start Date Expiration Date V isits Requested Visits Authorized SEE NOTE Authorized/B ooked 09/07/2015 12/08/2015 1 1 Reason for Visit * Reason Onset Date Comments REFERRAL 09/07/2015 Encounter Details Date Type Department Care Team Description 09/07/2015 Telephone Genetic & Disease Counseling - [place] [address] [place] [address] Juliet Garcia PA-C REFERRAL Social History Tobacco [...] pended external order for genetic counseling to [facility].Pt has [employer] and cannot make an genetic counseling visits at [facility] due to work and doesn't drive. I am removing this pt's order from the genetic testing schedule. Order expires 09/02/16,[employer]. documented in this encounter Plan of Treatment Upcoming Encounters Date Type Specialty Care Team Description 10/17/2024 Math And Sciences Department Chair Report Abstract, Provider documented as of this encounter Visit Diagnoses Diagnosis Family history of breast cancer- Primary Family history of malignant neoplasm of breast documented in this encounter Care Teams Pin Pusher Relationship Specialty Start Date End Date Manoj Ragland MD PCP - General Internal Medicine 09/02/15 Darrel Tony MD [address] [place] [address] PCP - General Internal Medicine 02/18/16 07/05/16 [facility], Pcp [address] [place] [address] PCP - General Internal Medicine 07/06/16 11/13/17 Stefan Johnson [address] [place] [address] PCP - General Internal Medicine 11/14/17 02/25/18 Colette Anderson MD [address] [place] [address] PCP - General Internal Medicine 02/26/18 11/21/21 Darrel Tony MD [address] [place] [address] PCP - General Internal Medicine 11/22/21 documented as of this encounter
--- OUTSIDE RECORDS SUMMARY | 2024-05-09 13:04 | XMS_ITS | Encounter Summary ---
Author Organization [facility] Address [address] [place] [address] Care Team Providers Care Coffee Host Name Role Phone Darrel Tony MD Primary Care Provider [phone] [phone] Reason for Visit * Reason Onset Date Comments refill request 04/13/2023 Encounter Details Date Type Department Care Team Description 04/13/2023 Telephone Adult Medicine [address] [address] Darrel Tony MD [address] [place] [address] refill request Social History Tobacco Use Types [...] Telephone Encounter - Melinda Hawkins M.A. - 04/13/2023 12:35 PM EST Last office visit 03/17/23 Lab Results Component Value Date NA 141 08/10/2022 K 4.0 08/10/2022 CO2 25 08/10/2022 CL 107 08/10/2022 BUN 14 08/10/2022 CREAT 1.01 08/10/2022 GLU 264 03/31/2023 CA 9.3 08/10/2022 GFR 66 08/10/2022 Lab Results Component Value Date 25OHD 15 10/31/2022 * Telephone Encounter - Babatunde Jacques - 04/13/2023 12:30 PM EST Patient would like script to [...] N/A Patients current insurance carrier is: Payor: [facility] MCR / Plan: ONE CARE [facility] / Product Type: HMO [id number] documented in this encounter Plan of Treatment Upcoming Encounters Date Type Specialty Care Team Description 10/17/2024 Certified Athletic Trainer Report Abstract, Provider documented as of this encounter Visit Diagnoses Diagnosis Vitamin D deficiency Unspecified vitamin D deficiency documented in this encounter Care Teams Coffee Host Relationship Specialty Start Date End Date Darrel Tony MD [address] [place] [address] PCP - General Internal Medicine 10/17/22 documented as of this encounter
--- OUTSIDE RECORDS SUMMARY | 2024-05-09 13:04 | XMS_ITS | Encounter Summary ---
Author Organization [facility] Address [address] [place] [address] Care Team Providers Care Fingerprint Expert Name Role Phone Darrel Tony MD Primary Care Provider +1 -[phone] Reason for Visit * Reason Onset Date Comments Faxed Order 12/05/2023 [facility] Encounter Details Date Type Department Care Team Description 12/05/2023 Telephone Medicine/Pediatrics - [address] [address] Darrel Tony MD [address] [place] [address] Faxed Order ([facility] ) Social History Tobacco Use Types Packs/Day [...] encounter Miscellaneous Notes * Telephone Encounter - Keiry Brody - 12/05/2023 10:40 AM EDT Faxed order received by [facility]. Order placed in Darrel Cecily [employer] for signature. Please sign and fax back to fax [phone]. documented in this encounter Plan of Treatment Upcoming Encounters Date Type Specialty Care Team Description 10/17/2024 Structural Analyst Report Abstract, Provider documented as of this encounter Visit Diagnoses Not on filedocumented in this encounter Care Teams Fingerprint Expert Relationship Specialty Start Date End Date Darrel Tony MD [address] [place] [address] PCP - General Internal Medicine 11/22/21 documented as of this encounter
--- OUTSIDE RECORDS SUMMARY | 2024-05-09 13:04 | XMS_ITS | Encounter Summary ---
Author Organization [facility] Address [address] [place] [address] Care Team Providers Care Construction Or Leak Gang Laborer Name Role Phone Darrel Tony MD Primary Care Provider +1 -[phone] Encounter Details Date Type Department Care Team Description 10/12/2023 Orders Only Medical Records [address] [place] [address] Rufus Bernard MD [address] [place] [address] Social History Tobacco Use Types Packs/Day Years [...] Date Type Specialty Care Team Description 10/17/2024 Solar Energy Engineer Report Abstract, Provider documented as of this encounter Procedures Procedure Name Priority Date/Time Associated Diagnosis Comments OUTSIDE LAB Routine 10/12/2023 documented in this encounter Results * OUTSIDE LAB (10/12/2023) Rufus Bernard MD LAB documented in this encounter Visit Diagnoses Not on filedocumented in this encounter Care Teams Construction Or Leak Gang Laborer Relationship Specialty Start Date End Date Darrel Tony MD [address] [place] [id number] PCP - General Internal Medicine 11/22/21 documented as of this encounter
--- OUTSIDE RECORDS SUMMARY | 2024-05-09 13:04 | XMS_ITS | Encounter Summary ---
Author Organization [facility] Address [address] [place] [address] Care Team Providers Care Shadow Graph Weight Operator Name Role Phone Darrel Tony MD Primary Care Provider +1 -[phone] Encounter Details Date Type Department Care Team Description 01/12/2022 Pt. Non Urgent Medical Question Adult Medicine [address] [address] Darrel Tony MD [address] [place] [address] Social History Tobacco Use Types Packs/Day Years [...] Date Type Specialty Care Team Description 10/17/2024 Stock Worker Report Abstract, Provider documented as of this encounter Visit Diagnoses Not on filedocumented in this encounter Care Teams Shadow Graph Weight Operator Relationship Specialty Start Date End Date Darrel Tony MD [address] [place] [address] PCP - General Internal Medicine 11/22/21 documented as of this encounter
--- OUTSIDE RECORDS SUMMARY | 2024-05-09 13:04 | XMS_ITS | Encounter Summary ---
Author Organization [facility] Address [address] [place] [address] Care Team Providers Care Junior Account Manager Name Role Phone Darrel Tony MD Primary Care Provider +1 -[phone] Reason for Visit * Reason Onset Date Comments Faxed Refill 09/04/2023 Encounter Details Date Type Department Care Team Description 09/04/2023 Refill Adult Medicine [address] [address] Darrel Tony MD [address] [place] [address] Faxed Refill Social History Tobacco Use Types [...] Telephone Encounter - Sherrie Morrison MA. - 09/04/2023 1:15 PM EDT Faxed to pharmacy * Telephone Encounter - Mirtha Gilliland M.A. - 09/04/2023 11:35 AM EDT Rivka 06/13/23 pended 09/22/23 Lab Results Component Value Date NA 139 06/27/2023 K 3.9 06/27/2023 CO2 25 06/27/2023 CL 107 06/27/2023 BUN 11 06/27/2023 CREAT 0.77 06/27/2023 GLU 236 06/27/2023 CA 9.5 06/27/2023 GFR 90 06/27/2023 Lab Results Component Value Date 25OHD 15 10/31/2022 * Telephone Encounter - Arlene Andujar - 09/04/2023 11:34 AM EDT Patient would like script to be: E-PRESCRIBED/FAXED TO PHARMACY ?? WHEN WAS THE PATIENT'S LAST APPOINTMENT IN ADULT MEDICINE? 06-13-23 ?? WHEN WAS THE LAST TIME THE PATIENT SAW THEIR PCP? Not seen pcp ?? Does patient have an upcoming appointment? Yes 09-22-23 ?? (THE MEDICATION REQUESTED IS ON THE [...] ?? Patients current insurance carrier is: Payor: [employer] / Plan: [facility] / Product Type: HMO [id number] ? documented in this encounter Plan of Treatment Upcoming Encounters Date Type Specialty Care Team Description 10/17/2024 Fashion Patternmaker Report Abstract, Provider documented as of this encounter Visit Diagnoses Diagnosis Vitamin D deficiency Unspecified vitamin D deficiency documented in this encounter Care Teams Junior Account Manager Relationship Specialty Start Date End Date Darrel Tony MD [address] [place] [address] PCP - General Internal Medicine 11/22/21 documented as of this encounter
--- OUTSIDE RECORDS SUMMARY | 2024-05-09 13:04 | XMS_ITS | Encounter Summary ---
Author Organization [facility] Address [address] [place] [address] Care Team Providers Care Sound Equipment Mechanic Name Role Phone Colette Anderson MD Primary Care Provider U Darrel Castro MD Primary Care Provider +1 -[phone] Encounter Details Date Type Department Care Team Description 01/13/2021 Pt. Non Urgent Medical Question Adult Medicine B - [address] [address] Trish Hyatt PA-C [address] [place] [address] Type 2 diabetes mellitus with microalbuminuria, with [...] [place] L.P.N. - 01/13/2021 4:58 PM EST [phone] (home) [phone] (work) Phone states not accepting any phone [...] Type Specialty Care Team Description 10/17/2024 Supervisor Rough End Report Abstract, Provider documented as of this encounter Visit Diagnoses Diagnosis Type 2 diabetes mellitus with microalbuminuria, with long-term current use of insulin (HCC) documented in this encounter Care Teams Sound Equipment Mechanic Relationship Specialty Start Date End Date Colette Anderson MD PCP - General Internal Medicine 02/26/1811/06 Darrel Tony MD [address] [place] [address] PCP - General Internal Medicine 11/22/21 documented as of this encounter
--- OUTSIDE RECORDS SUMMARY | 2024-05-09 13:04 | XMS_ITS | Encounter Summary ---
Author Organization [facility] Address [address] [place] [address] Care Team Providers Care Boots And Shoes Supervisor Name Role Phone Colette Anderson MD Primary Care Provider U Darrel Castro MD Primary Care Provider +1 -[phone] Encounter Details Date Type Department Care Team Description 08/18/2019 Pt. Non Urgent Medical Question Nephrology - [place] [address] [place] [address] Wagner Herrera MD [address] [place] [address] Social History Tobacco Use Types Packs/Day Years [...] Date Type Specialty Care Team Description 10/17/2024 Physicians Assistant Report Abstract, Provider documented as of this encounter Visit Diagnoses Not on filedocumented in this encounter Care Teams Boots And Shoes Supervisor Relationship Specialty Start Date End Date Colette Anderson MD PCP - General Internal Medicine 02/26/1811/06 Darrel Tony MD [address] [place] [address] PCP - General Internal Medicine 11/22/21 documented as of this encounter
--- OUTSIDE RECORDS SUMMARY | 2024-05-09 13:04 | XMS_ITS | Encounter Summary ---
Author Organization [facility] Address [address] [place] [address] Care Team Providers Care House Mother Name Role Phone Xenia Morfin MD Primary Care Provider Manoj Casas MD Primary Care Provider Un available Darrel Tony MD Primary Care Provider +1 [phone] [facility], Pcp Primary Care Provider UnavailStefan Baetty Primary Care Provider Unav ailable Colette Anderson MD Primary Care Provider U navailDarrel Dugan MD Primary Care Provider +1 -[phone] Reason for Visit * Reason Onset Date Comments Emg 05/18/2015 Encounter Details Date Type Department Care Team Description 05/18/2015 Telephone Physiatry - [address] [address] Leona Mays MD [address] [place] [address] [place] [address] Emg Social History Tobacco Use Types Packs/Day [...] encounter Miscellaneous Notes * Telephone Encounter - N'Ashley Mock - 05/18/2015 3:29 PM EDT Patient is referred for an EMG. Tried to contact patient several times by phone and sent out letterwith no response. Patient will be taken off of EMG report. SRIDHAR documented in this encounter Plan of Treatment Upcoming Encounters Date Type Specialty Care Team Description 10/17/2024 Sheet Metal Apprentice Report Abstract, Provider documented as of this encounter Visit Diagnoses Not on filedocumented in this encounter Care Teams House Mother Relationship Specialty Start Date End Date Xenia Morfin MD PCP - General Internal Medicine 11/20/14 09/01/15 Manoj Ragland MD PCP - General Internal Medicine 09/02/15 Darrel Tony MD [address] [place] [address] PCP - General Internal Medicine 02/18/16 07/05/16 [facility], [address] [address] PCP - General Internal Medicine 07/06/16 11/13/17 Stefan Johnson [address] [place] [address] PCP - General Internal Medicine 11/14/17 02/25/18 Colette Anderson MD [address] [place] [address] PCP - General Internal Medicine 02/26/18 11/21/21 Darrel Tony MD [address] [place] [address] PCP - General Internal Medicine 11/22/21 documented as of this encounter
--- OUTSIDE RECORDS SUMMARY | 2024-05-09 13:04 | XMS_ITS | Encounter Summary ---
Author Organization [facility] Address [address] [place] [address] Care Team Providers Care Scheduling Specialist Name Role Phone Colette Anderson MD Primary Care Provider U Darrel Castro MD Primary Care Provider +1 -[phone] Reason for Referral * Non APRIL (Urgent) - Authorized/Booked Specialty Diagnoses / Procedures Referred By Contact Referred To Contact Oncology/Hematology Procedures REFERRAL TO ONCOLOGY/HEMATOLOGY (IN NETWORK) Colette Anderson MD [address] [place] [address] Diego Javed MD [address] [place] [address] Referral ID Status Reason Start Date Expiration Date V isits Requested Visits Authorized [id number] Authorized/B ooked 03/13/2019 03/12/2020 12 12 Encounter Details Date Type Department Care Team Description 03/13/2019 Orders Only Adult Medicine B - [address] [address] Colette Anderson MD Social History Tobacco Use [...] Specialty Care Team Description 10/17/2024 Child Care Director Report Abstract, Provider documented as of this encounter Visit Diagnoses Not on filedocumented in this encounter Care Teams Scheduling Specialist Relationship Specialty Start Date End Date Colette Anderson MD PCP - General Internal Medicine 02/26/1811/06 Darrel Tony MD [address] [place] [address] PCP - General Internal Medicine 11/22/21 documented as of this encounter
--- OUTSIDE RECORDS SUMMARY | 2024-05-09 13:04 | XMS_ITS | Encounter Summary ---
Author Organization [facility] Address [address] [place] [address] Care Team Providers Care Cashier Host/Hostess Name Role Phone Darrel Tony MD Primary Care Provider +1 -[phone] Reason for Visit * Reason Onset Date Comments Request For Order(s) 04/16/2024 [facility] Encounter Details Date Type Department Care Team (Late st Contact Info) Description 04/16/2024 Telephone Internal Medicine - [facility] [address] [place] [phone] Darrel Tony MD [address] [place] [address] Request For Order(s) ([facility]) Social History Tobacco Use Types Packs/Day [...] MD bin for signing, please fax to [phone]. documented in this encounter Plan of Treatment Upcoming Encounters Date Type Department Care Team (Late st Contact Info) Description 05/15/2024 11:00 AM EDT Office Visit Endocrinology [address] [address] Trish Hyatt PA [address] [place] [address] documented as of this encounter Visit Diagnoses Not on filedocumented in this encounter Care Teams Cashier Host/Hostess Relationship Specialty Start Date End Date Darrel Tony MD [address] [place] [address] PCP - General Internal Medicine 11/22/21 documented as of this encounter
--- OUTSIDE RECORDS SUMMARY | 2024-05-09 13:04 | XMS_ITS | Encounter Summary ---
Author Organization [facility] Address [address] [place] [address] Care Team Providers Care Pottery Machine Operator Name Role Phone Colette Anderson MD Primary Care Provider U Darrel Castro MD Primary Care Provider +1 -[phone] Encounter Details Date Type Department Care Team Description 02/09/2021 Pt. Non Urgent Medical Question Adult Medicine B - [address] [address] Trish Hyatt PA-C [address] [place] [address] Social History Tobacco Use Types Packs/Day Years [...] Date Type Specialty Care Team Description 10/17/2024 Adobe Developer Report Abstract, Provider documented as of this encounter Visit Diagnoses Not on filedocumented in this encounter Care Teams Pottery Machine Operator Relationship Specialty Start Date End Date Colette Anderson MD PCP - General Internal Medicine 02/26/1811/06 Darrel Tony MD [address] [place] [address] PCP - General Internal Medicine 11/22/21 documented as of this encounter
--- OUTSIDE RECORDS SUMMARY | 2024-05-09 13:04 | XMS_ITS | Encounter Summary ---
Author Organization [facility] Address [address] [place] [address] Care Team Providers Care Reeling Machine Operator Name Role Phone Darrel Tony MD Primary Care Provider +1 -[phone] Encounter Details Date Type Department Care Team Description 06/05/2023 Orders Only Medical Records [address] [place] [address] Abstract, Provider Social History Tobacco Use Types [...] Date Type Specialty Care Team Description 10/17/2024 Out Of School Hours Care Worker Report Abstract, Provider documented as of this encounter Procedures Procedure Name Priority Date/Time Associated Diagnosis Comments HEMOGLOBIN A1C Routine 05/04/2023 documented in this encounter Results * HEMOGLOBIN A1C (05/04/2023) Provider Abstract LAB documented in this encounter Visit Diagnoses Not on filedocumented in this encounter Care Teams Reeling Machine Operator Relationship Specialty Start Date End Date Darrel Tony MD [address] [place] [address] PCP - General Internal Medicine 11/22/21 documented as of this encounter
--- OUTSIDE RECORDS SUMMARY | 2024-05-09 13:04 | XMS_ITS | Encounter Summary ---
Author Organization [facility] [place] [facility] Address [address] [place] [address] Care Team Providers Care Cupola Patcher Name Role Phone Colette Anderson MD Primary Care Provider U Darrel Castro MD Primary Care Provider +1 -[phone] Reason for Visit * Reason Onset Date Comments Faxed Refill 11/24/2020 Encounter Details Date Type Department Care Team Description 11/24/2020 Refill Adult Medicine B - [place] [address] [place] [address] Colette Anderson MD Faxed Refill Social History [...] Daniella Hummel - 11/24/2020 9:15 AM EDT [phone] (home) [phone] (work) Left message to call back. Please put to [phone] or re-message to A side Mychart response [...] N/A Patients current insurance carrier is: Payor: [employer] / Plan: [employer] / Product Type: MEDICAID RISK documented in this encounter Plan of Treatment Upcoming Encounters Date Type Specialty Care Team Description 10/17/2024 Engagement Lead Report Abstract, Provider documented as of this encounter Visit Diagnoses Not on filedocumented in this encounter Care Teams Cupola Patcher Relationship Specialty Start Date End Date Colette Anderson MD PCP - General Internal Medicine 02/26/1811/06 Darrel Tony MD [address] [place] [address] PCP - General Internal Medicine 11/22/21 documented as of this encounter
--- OUTSIDE RECORDS SUMMARY | 2024-05-09 13:05 | XMS_ITS | Encounter Summary ---
Author Organization [facility] Address [address] [place] [address] Care Team Providers Care Choral Director Name Role Phone Colette Anderson MD Primary Care Provider U Darrel Castro MD Primary Care Provider +1 -[phone] Encounter Details Date Type Department Care Team Description 03/14/2021 Pt. Non Urgent Medical Question Endocrinology - [place] [address] [place] [address] Trish Hyatt PA-C [address] [place] [address] Social History Tobacco Use Types Packs/Day Years [...] Type Specialty Care Team Description 10/17/2024 Senior Administrative Assistant Report Abstract, Provider documented as of this encounter Visit Diagnoses Not on filedocumented in this encounter Care Teams Choral Director Relationship Specialty Start Date End Date Colette Anderson MD PCP - General Internal Medicine 02/26/1811/06 Darrel Tony MD [address] [place] [address] PCP - General Internal Medicine 11/22/21 documented as of this encounter
--- OUTSIDE RECORDS SUMMARY | 2024-05-09 13:05 | XMS_ITS | Encounter Summary ---
Author Organization [facility] Address [address] [place] [address] Care Team Providers Care Net Lead Architect Name Role Phone Darrel Tony MD Primary Care Provider +1 -[phone] Reason for Visit * Reason Onset Date Comments refill request 05/12/2022 Encounter Details Date Type Department Care Team Description 05/12/2022 Refill Adult Medicine [address] [address] Darrel Tony MD [address] [place] [address] refill request Social History Tobacco Use Types [...] 10 Mg Tablet 30 30 Je Cam [id number] [facility]vs (1855) 0/0 0.50 [place] 2022 2022 1 Gabapentin 600 Mg Tablet 180 30 Ja Iraj [id number] Cvs (3888) 0/3 4.02 LME Medicaid [place] 04/13/2022 04/13/2022 1 Oxycodone Hcl (Ir) 5 Mg Tablet 84 28 Ka Gun [id number] Cvs (1855) 0/0 22.50 MME [place] 03/23/2022 09/13/2021 1 Gabapentin 600 Mg Tablet 180 30 Ja Iraj [id number] Cvs (7608) 4/4 4.02 L[place] 03/16/2022 03/16/2022 1 Oxycodone Hcl (Ir) 5 Mg Tablet 84 28 Te Sva [id number] Cvs (4488) 0/0 22.50 [place] 03/07/2022 03/07/2022 1 Zolpidem Tartrate 10 Mg Tablet 30 30 Je Cam [id number] [facility]vs (1855) 0/1 0.50 L[place]icaid [place] 02/20/2022 09/13/2021 1 Gabapentin 600 Mg Tablet 180 30 Ja Iraj [id number] [facility]vs (7608) 3/4 4.02 L[place] 02/10/2022 02/10/2022 1 Oxycodone Hcl (Ir) 5 Mg Tablet 84 28 Ka Gun [id number] Cvs (3588) 0/0 22.50 [place] 01/19/2022 09/13/2021 1 Gabapentin 600 Mg Tablet 180 30 Ja Iraj [id number] Cvs (4808) 2/4 4.02 [place] 01/12/2022 01/12/2022 1 Oxycodone Hcl (Ir) 5 Mg Tablet 84 28 Ka Gun [id number] Cvs (7608) 0/0 22.50 [place] 12/13/2021 12/13/2021 1 Oxycodone Hcl (Ir) 5 Mg Tablet 84 28 Ka Gun [id number] [facility]vs (7608) 0/0 22.50 [place] 11/12/2021 11/12/2021 1 Oxycodone Hcl (Ir) 5 Mg Tablet 84 28 Te Sva [id number] [facility]vs (7608) 0/0 22.50 [place] 11/02/2021 08/11/2021 1 Zolpidem Tartrate 5 Mg Tablet 30 30 Je Cam [id number] [facility]vs (1855) 2/2 0.25 [place] 10/16/2021 09/13/2021 1 Gabapentin 600 Mg Tablet 180 30 Ja Iraj [id number] [facility]vs (7608) / 4.02 LME [place] 10/14/2021 10/14/2021 1 Oxycodone Hcl (Ir) 5 Mg Tablet 84 28 [place] documented in this encounter Plan of Treatment Upcoming Encounters Date Type Specialty Care Team Description 10/17/2024 Field Operator Report Abstract, Provider documented as of this encounter Visit Diagnoses Diagnosis Fibromyalgia Mylagia and myositis, unspecified documented in this encounter Care Teams Net Lead Architect Relationship Specialty Start Date End Date Darrel Tony MD [address] [place] [address] PCP - General Internal Medicine 11/22/21 documented as of this encounter
--- OUTSIDE RECORDS SUMMARY | 2024-05-09 13:05 | XMS_ITS | Encounter Summary ---
Author Organization [facility] Address [address] [place] [address] Care Team Providers Care Superintendent Drivers Name Role Phone Darrel Tony MD Primary Care Provider +1 -[phone] Encounter Details Date Type Department Care Team Description 02/14/2022 Ct Scan Technologist Report Medical Records [address] [place] [address] Home Warner MD Social History Tobacco Use [...] suspected to have Coronavirus/COVID-19? No / Unsure 02/11/2022 2:03 PM EST documented as of this encounter Plan of Treatment Upcoming Encounters Date Type Specialty Care Team Description 10/17/2024 Ct Scan Technologist Report Abstract, Provider documented as of this encounter Visit Diagnoses Not on filedocumented in this encounter Care Teams Superintendent Drivers Relationship Specialty Start Date End Date Darrel Tony MD [address] [place] [address] PCP - General Internal Medicine 11/22/21 documented as of this encounter
--- OUTSIDE RECORDS SUMMARY | 2024-05-09 13:05 | XMS_ITS | Encounter Summary ---
Author Organization [facility] Address [address] [place] [address] Care Team Providers Care Engineering Supervisor Name Role Phone Colette Anderson MD Primary Care Provider U Darrel Castro MD Primary Care Provider +1 -[phone] Encounter Details Date Type Department Care Team Description 10/23/2019 Pt. Non Urgent Medical Question Adult Medicine - [address] [address] Colette Anderson MD Social History Tobacco Use [...] have Coronavirus / COVID-19? No / Unsure 10/15/2019 9:05 AM EDT documented as of this encounter Progress Notes * Liss Bran L.P.N. - 10/23/2019 12:38 PM EDTFrom: Galina Doyle To: Colette Jennings MD Sent: 10/23/2019 9:47 AM EDT Subject: FMLA renewal I have the papers for renewal of my FMLA. It has to say intermittent leaves due to my diabetes, Lupus and fibromyalgia. I have flare ups regularly which is why I have had this FMLA for two years now.It's expiring 10/26/2019. Thank you in advance, Filicia documented in this encounter Plan of Treatment Upcoming Encounters Date Type Specialty Care Team Description 10/17/2024 Cook Helper Pastry Report Abstract, Provider documented as of this encounter Visit Diagnoses Not on filedocumented in this encounter Care Teams Engineering Supervisor Relationship Specialty Start Date End Date Colette Anderson MD PCP - General Internal Medicine 02/26/1811/06 Darrel Tony MD [address] [place] [address] PCP - General Internal Medicine 11/22/21 documented as of this encounter
--- OUTSIDE RECORDS SUMMARY | 2024-05-09 13:05 | XMS_ITS | Encounter Summary ---
Author Organization [facility] Address [address] [place] [address] Care Team Providers Care Vibrating Screen Operator Name Role Phone Colette Anderson MD Primary Care Provider U Darrel Castro MD Primary Care Provider +1 -[phone] Encounter Details Date Type Department Care Team Description 10/09/2019 Orders Only Medical Records [address] [place] [address] Wagner Herrera MD [address] [place] [address] Social History Tobacco Use Types Packs/Day Years [...] Date Type Specialty Care Team Description 10/17/2024 Shipping Clerk Packing Report Abstract, Provider documented as of this encounter Procedures Procedure Name Priority Date/Time Associated Diagnosis Comments OUTSIDE IMAGING Routine 10/08/2019 documented in this encounter Results * OUTSIDE IMAGING (10/08/2019) Wagner Herrera MD RADIOLOGY documented in this encounter Visit Diagnoses Not on filedocumented in this encounter Care Teams Vibrating Screen Operator Relationship Specialty Start Date End Date Colette Anderson MD PCP - General Internal Medicine 02/26/1811/06 Darrel Tony MD [address] [place] [address] PCP - General Internal Medicine 11/22/21 documented as of this encounter
--- OUTSIDE RECORDS SUMMARY | 2024-05-09 13:05 | XMS_ITS | Encounter Summary ---
Author Organization [facility] Address [address] [place] [address] Care Team Providers Care Manager Diesel Name Role Phone Colette Anderson MD Primary Care Provider U Darrel Castro MD Primary Care Provider +1 -[phone] Reason for Visit * Reason Onset Date Comments Faxed Refill 11/14/2019 Encounter Details Date Type Department Care Team Description 11/14/2019 Refill Adult Medicine B - [place] [address] [place] [address] Colette Anderson MD Faxed Refill Social History [...] encounter Miscellaneous Notes * Telephone Encounter - Colette Jennings MD - 11/15/2019 11:32 AM EDT Signed, thank you * Telephone Encounter - Marcie Davenport M.A. - 11/15/2019 8:36 AM EDT Date of last office visit was 11/13/19 Lab Results Component Value Date HGBA1C 6.1 11/14/2019 MALBUR 522.0 03/11/2019 MALBCR 191.9 03/11/2019 CHOL 133 11/14/2019 LDL 74 11/14/2019 HDL 45 11/14/2019 TRIG 73 11/14/2019 GLU 132 09/10/2019 CREAT 0.76 09/10/2019 Lab Results Component Value Date NA 143 09/10/2019 K 3.8 09/10/2019 CO2 24 09/10/2019 CL 110 09/10/2019 BUN 11 09/10/2019 CREAT 0.76 09/10/2019 GLU 132 09/10/2019 CA 8.4 09/10/2019 GFR > 60 09/10/2019 * Telephone Encounter - Robyn Quintana - 11/14/2019 1:48 PM EDT Patient would like script to be: E-PRESCRIBED/FAXED TO PHARMACY WHEN WAS THE PATIENT'S LAST APPOINTMENT IN ADULT MEDICINE? 11/13/19 WHEN WAS THE LAST TIME THE PATIENT SAW THEIR PCP? Same as above Does patient have an upcoming appointment? No (THE MEDICATION REQUESTED IS ON THE MED [...] N/A Patients current insurance carrier is: Payor: [employer] / Plan: POS $20/30 JULIANNE ADAME [id number] THNE TRADITNAL / Product Type: POS [id number] documented in this encounter Plan of Treatment Upcoming Encounters Date Type Specialty Care Team Description 10/17/2024 Makeup Artistry Instructor Report Abstract, Provider documented as of this encounter Visit Diagnoses Not on filedocumented in this encounter Care Teams Manager Diesel Relationship Specialty Start Date End Date Colette Anderson MD PCP - General Internal Medicine 02/26/1811/06 Darrel Tony MD [address] [place] [address] PCP - General Internal Medicine 11/22/21 documented as of this encounter
--- OUTSIDE RECORDS SUMMARY | 2024-05-09 13:05 | XMS_ITS | Clinical Summary ---
Author Organization [facility] Facility Address [address] [address] Care Team Providers Care Literature Teacher Name Role Phone Unavailable Primary Care Provider [...]
--- OUTSIDE RECORDS SUMMARY | 2024-05-09 13:05 | XMS_ITS | Encounter Summary ---
Author Organization [facility] Address [address] [place] [address] Care Team Providers Care Leader Assembler Name Role Phone Darrel Tony MD Primary Care Provider +1 [phone] Encounter Details Date Type Department Care Team Description 06/26/2022 Refill Nephrology - [address] [address] Wagner Herrera MD [address] [place] [address] Social History Tobacco Use Types Packs/Day Years [...] Date Type Specialty Care Team Description 10/17/2024 Rug Layer Report Abstract, Provider documented as of this encounter Visit Diagnoses Not on filedocumented in this encounter Care Teams Leader Assembler Relationship Specialty Start Date End Date Darrel Tony MD [address] [place] [address] PCP - General Internal Medicine 11/22/21 documented as of this encounter
--- OUTSIDE RECORDS SUMMARY | 2024-05-09 13:05 | XMS_ITS | Encounter Summary ---
Author Organization [facility] Address [address] [place] [address] Care Team Providers Care Military Nurse Name Role Phone Colette Anderson MD Primary Care Provider U Darrel Castro MD Primary Care Provider [phone] [phone] Encounter Details Date Type Department Care Team Description 03/25/2021 Pt. Non Urgent Medical Question Endocrinology - [place] [address] [place] [address] Trish Hyatt PA-C [address] [place] [address] Social History Tobacco Use Types Packs/Day Years [...] have Coronavirus / COVID-19? Unable to assess 03/26/2021 8:22 AM EST documented as of this encounter Miscellaneous Notes * Telephone Encounter - Seema Hummel - 03/25/2021 8:34 AM ESTFrom: Galina Doyle To: Alireza Hyatt Sent: 03/25/2021 12:32 AM EST Subject: Missed appointment My phone was disconnected on the and will be back on 03/25/21. Sorry, can I please reschedule this televisit? I didn't realize it would be turned off on my appointment date. Filicia documented in this encounter Plan of Treatment Upcoming Encounters Date Type Specialty Care Team Description 10/17/2024 Historian Dramatic Arts Report Abstract, Provider documented as of this encounter Visit Diagnoses Not on filedocumented in this encounter Care Teams Military Nurse Relationship Specialty Start Date End Date Colette Anderson MD PCP - General Internal Medicine 02/26/1811/06 Darrel Tony MD [address] [place] [address] PCP - General Internal Medicine 11/22/21 documented as of this encounter
--- OUTSIDE RECORDS SUMMARY | 2024-05-09 13:05 | XMS_ITS | Encounter Summary ---
Author Organization [facility] Address [address] [place] [address] Care Team Providers Care Enrollment Clerk Name Role Phone Colette Anderson MD Primary Care Provider U Darrel Castro MD Primary Care Provider [phone] [phone] Encounter Details Date Type Department Care Team Description 02/23/2021 Telephone Endocrinology - [place] [address] [place] [address] Trish Hyatt PA-C [address] [place] [address] Social History Tobacco Use Types Packs/Day Years [...] Miscellaneous Notes * Telephone Encounter - Jennifer Byers - 03/02/2021 3:48 PM EST Faxed paperwork over to [facility] and talk to thao * Telephone Encounter - Emerita East M.A. - 03/02/2021 3:32 PM EST Office notes, labs and insurance information faxed to [facility] per his request. He states patient will be approved with her insurance. Called patient left message on answering machine to call the office of Trish Hyatt PA-C. * Telephone Encounter - Tirsh Hyatt PA-C - 02/23/2021 2:13 PM EST Can you please see why patient has not received dexcom, ordered a few months ago documented in this encounter Plan of Treatment Upcoming Encounters Date Type Specialty Care Team Description 10/17/2024 Certified Rehabilitation Counselor Report Abstract, Provider documented as of this encounter Visit Diagnoses Not on filedocumented in this encounter Care Teams Enrollment Clerk Relationship Specialty Start Date End Date Colette Anderson MD PCP - General Internal Medicine 02/26/1811/06 Darrel Tony MD [address] [place] [address] PCP - General Internal Medicine 11/22/21 documented as of this encounter
--- OUTSIDE RECORDS SUMMARY | 2024-05-09 13:05 | XMS_ITS | Encounter Summary ---
[facility] Address [address] [place] [address] Care Team Providers Care Television Repairer Name Role Phone Colette Anderson MD Primary Care Provider U Darrel Castro MD Primary Care Provider [phone] [phone] Reason for Visit * Reason Onset Date Comments Faxed Refill 05/21/2021 Encounter Details Date Type Department Care Team Description 05/21/2021 Refill Adult Medicine - [place] [address] [place] [address] Colette Anderson MD Faxed Refill Social History [...] Date Type Specialty Care Team Description 10/17/2024 Building Drafter Report Abstract, Provider documented as of this encounter Visit Diagnoses Not on filedocumented in this encounter Care Teams Television Repairer Relationship Specialty Start Date End Date Colette Anderson MD PCP - General Internal Medicine 02/26/1811/06 Darrel Tony MD [address] [place] [address] PCP - General Internal Medicine 11/22/21 documented as of this encounter
--- OUTSIDE RECORDS SUMMARY | 2024-05-09 13:05 | XMS_ITS | Encounter Summary ---
Author Organization [facility] Address [address] [place] [address] Care Team Providers Care Oracle Bpm Developer Name Role Phone Jaime Gonzales MD Primary Care Provider Unavail able Xenia Morfin MD Primary Care Provider Unavaila Manoj Hunter MD Primary Care Provider Un available Darrel Tony MD Primary Care Provider [phone] [phone] [facility], Pcp Primary Care Provider Unavailabl Stefan Landaverde Primary Care Provider Unav ailable Colette Anderson MD Primary Care Provider U navailDarrel Dugan MD Primary Care Provider +1 -[phone] Encounter Details Date Type Department Care Team Description 11/23/2011 Health Information Internship Report Medical Records [address] [place] [address] Abel Rider PA-C Social History Tobacco Use [...] Date Type Specialty Care Team Description 10/17/2024 Health Information Internship Report Abstract, Provider documented as of this encounter Visit Diagnoses Not on filedocumented in this encounter Care Teams Oracle Bpm Developer Relationship Specialty Start Date End Date Jaime Gonzales MD PCP - General 11/06/05 11/19/14 Xenia Morfin MD PCP - General Internal Medicine 11/20/14 09/01/15 Manoj Ragland MD PCP - General Internal Medicine 09/02/15 Darrel Tony MD [address] [place] [address] PCP - General Internal Medicine 02/18/16 07/05/16 [facility], Pcp [address] [place] [address] PCP - General Internal Medicine 07/06/16 11/13/17 Stefan Johnson [address] [place] [address] PCP - General Internal Medicine 11/14/17 02/25/18 Colette Anderson MD [address] [place] [address] PCP - General Internal Medicine 02/26/18 11/21/21 Darrel Tony MD [address] [place] [address] PCP - General Internal Medicine 11/22/21 documented as of this encounter
--- OUTSIDE RECORDS SUMMARY | 2024-05-09 13:05 | XMS_ITS | Encounter Summary ---
Author Organization [facility] Address [address] [place] [address] Care Team Providers Care Aerophysics Engineer Name Role Phone Darrel Tony MD Primary Care Provider [phone] Encounter Details Date Type Department Care Team Description 07/19/2022 CGM Report Medical Records [address] [place] [address] Abstract, Provider Social History Tobacco Use Types [...] Date Type Specialty Care Team Description 10/17/2024 Vice President Research Report Abstract, Provider documented as of this encounter Visit Diagnoses Not on filedocumented in this encounter Care Teams Aerophysics Engineer Relationship Specialty Start Date End Date Darrel Tony MD [address] [place] [address] PCP - General Internal Medicine 11/22/21 documented as of this encounter
--- OUTSIDE RECORDS SUMMARY | 2024-05-09 13:05 | XMS_ITS | Encounter Summary ---
Author Organization [facility] Address [address] [place] [address] Care Team Providers Care Casino Dealer Name Role Phone Colette Anderson MD Primary Care Provider U Darrel Castro MD Primary Care Provider [phone] [phone] Reason for Visit * Reason Onset Date Comments medication problems 04/21/2021 Encounter Details Date Type Department Care Team Description 04/21/2021 Telephone Adult Medicine - [place] [address] [place] [address] Colette Anderson MD medication problems Social History [...] - 04/22/2021 11:26 AM EDT Changed to inContactlog * Telephone Encounter - Mary Avitia - [...] Type Specialty Care Team Description 10/17/2024 Supervisor Policy Change Clerks Report Abstract, Provider documented as of this encounter Visit Diagnoses Not on filedocumented in this encounter Care Teams Casino Dealer Relationship Specialty Start Date End Date Colette Anderson MD PCP - General Internal Medicine 02/26/1811/06 Darrel Tony MD [address] [place] [address] PCP - General Internal Medicine 11/22/21 documented as of this encounter
--- OUTSIDE RECORDS SUMMARY | 2024-05-09 13:05 | XMS_ITS | Encounter Summary ---
Author Organization [facility] Address [address] [place] [address] Care Team Providers Care Folding Machine Setter Name Role Phone Colette Anderson MD Primary Care Provider U Darrel Castro MD Primary Care Provider +1 -[phone] Encounter Details Date Type Department Care Team Description 04/09/2021 Pt. Non Urgent Medical Question Adult Medicine [address] [address] Colette Anderson MD Fibromyalgia (Primary Dx) Social History Tobacco Use Types [...] Telephone Encounter - Colette Jennings MD - 04/12/2021 11:50 AM EST Signed, thank you * Telephone Encounter - Seema Hummel - 04/09/2021 9:10 AM ESTFrom: Galina Doyle To: Meek Jennings Sent: 04/09/2021 2:41 AM EST Subject: Oxy 5 Can you please refill my order? Galina Doyle documented in this encounter Plan of Treatment Upcoming Encounters Date Type Specialty Care Team Description 10/17/2024 Peoplesoft Administrator Report Abstract, Provider documented as of this encounter Visit Diagnoses Diagnosis Fibromyalgia- Primary Mylagia and myositis, unspecified documented in this encounter Care Teams Folding Machine Setter Relationship Specialty Start Date End Date Colette Anderson MD PCP - General Internal Medicine 02/26/1811/06 Darrel Tony MD [address] [place] [address] PCP - General Internal Medicine 11/22/21 documented as of this encounter
--- OUTSIDE RECORDS SUMMARY | 2024-05-09 13:05 | XMS_ITS | Encounter Summary ---
Author Organization [facility] Address [address] [place] [address] Care Team Providers Care Conventions Reservationist Name Role Phone Colette Anderson MD Primary Care Provider U Darrel Castro MD Primary Care Provider [phone] [phone] Reason for Visit * Reason Comments E-prescribe Rx Request Encounter Details Date Type Department Care Team Description 05/28/2021 Refill Rheumatology - [address] [address] Home Warner MD E-prescribe Rx Request Social History Tobacco Use [...] encounter Miscellaneous Notes * Telephone Encounter - Liss Bran L.P.NChacho - 05/28/2021 3:47 PM EDT Patient requesting status of Rheumatology referral placed on 05/03/21. Please advise. Thank you. * Telephone Encounter - Liss Bran L.P.N. - 05/28/2021 3:45 PM EDT Spoke w/ pt. She reports that she did not request RX for hydroxychloroquine. She is waiting to hearback about external Rheumatology referral placed on 05/03/21. Msg to referrals. * Telephone Encounter - Tram Alvarez - 05/28/2021 12:05 PM EDT Patient would like script to be: E-PRESCRIBED/FAXED TO PHARMACY WHEN WAS THE PATIENT'S LAST APPOINTMENT IN ADULT MEDICINE? 04-14-21 WHEN WAS THE LAST TIME THE PATIENT SAW THEIR PCP? 01-04-21 Does patient have an upcoming appointment? No [...] N/A Patients current insurance carrier is: Payor: [employer] FFS / Plan: [employer] / Product Type: MEDICAID RISK documented in this encounter Plan of Treatment Upcoming Encounters Date Type Specialty Care Team Description 10/17/2024 Music Producer Report Abstract, Provider documented as of this encounter Visit Diagnoses Diagnosis Systemic lupus erythematosus (SLE) with pericarditis, unspecified SLE type (HCC) documented in this encounter Care Teams Conventions Reservationist Relationship Specialty Start Date End Date Colette Anderson MD PCP - General Internal Medicine 02/26/1811/06 Darrel Tony MD [address] [place] [address] PCP - General Internal Medicine 11/22/21 documented as of this encounter
--- OUTSIDE RECORDS SUMMARY | 2024-05-09 13:05 | XMS_ITS | Encounter Summary ---
Author Organization [facility] Address [address] [place] [address] Care Team Providers Care Lab Technologist Name Role Phone Colette Anderson MD Primary Care Provider U Darrel Castor MD Primary Care Provider [phone] [phone] Encounter Details Date Type Department Care Team Description 11/07/2019 Pt. Non Urgent Medical Question Rheumatology - [address] [address] Home Warner MD Social History Tobacco Use [...] repercussions and actions taken by my supervisor drying and winding. documented in this encounter Plan of Treatment Upcoming Encounters Date Type Specialty Care Team Description 10/17/2024 Inspector Raw Quartz Report Abstract, Provider documented as of this encounter Visit Diagnoses Not on filedocumented in this encounter Care Teams Lab Technologist Relationship Specialty Start Date End Date Colette Anderson MD PCP - General Internal Medicine 02/26/1811/06 Darrel Tony MD [address] [place] [address] PCP - General Internal Medicine 11/22/21 documented as of this encounter
--- OUTSIDE RECORDS SUMMARY | 2024-05-09 13:05 | XMS_ITS | Encounter Summary ---
Author Organization [facility] Address [address] [place] [address] Care Team Providers Care Legal Assistant Name Role Phone Darrel Tony MD Primary Care Provider [phone] [phone] Encounter Details Date Type Department Care Team Description 07/15/2022 Refill Adult Medicine [address] [address] Darrel Tony MD [address] [place] [address] Social History Tobacco Use Types Packs/Day Years [...] encounter Miscellaneous Notes * Telephone Encounter - Mariia Sandhu - 07/15/2022 1:06 PM EDT .Message below was given to patient. ANNABELLE OGLDEN * Telephone Encounter - Beba Gar M.A. - 07/15/2022 9:22 AM EDT Rx set up, forward to PCP documented in this encounter Plan of Treatment Upcoming Encounters Date Type Specialty Care Team Description 10/17/2024 Forensic Toxicologist Report Abstract, Provider documented as of this encounter Visit Diagnoses Diagnosis Fibromyalgia Mylagia and myositis, unspecified documented in this encounter Care Teams Legal Assistant Relationship Specialty Start Date End Date Darrel Tony MD [address] [place] [address] PCP - General Internal Medicine 11/22/21 documented as of this encounter
--- OUTSIDE RECORDS SUMMARY | 2024-05-09 13:05 | XMS_ITS | Encounter Summary ---
Author Organization [facility] Address [address] [place] [address] Care Team Providers Care Field Cane Scaler Helper Name Role Phone Colette Anderson MD Primary Care Provider U Darrel Castro MD Primary Care Provider +1 -[phone] Encounter Details Date Type Department Care Team Description 11/27/2019 Telephone Gastroenterology - [address] [place] [phone] Rufus Bernard MD [address] [place] [address] Social History Tobacco Use Types Packs/Day Years [...] Type Specialty Care Team Description 10/17/2024 Manager Battery Report Abstract, Provider documented as of this encounter Visit Diagnoses Not on filedocumented in this encounter Care Teams Field Cane Scaler Helper Relationship Specialty Start Date End Date Colette Anderson MD PCP - General Internal Medicine 02/26/1811/06 Darrel Tony MD [address] [place] [address] PCP - General Internal Medicine 11/22/21 documented as of this encounter
--- OUTSIDE RECORDS SUMMARY | 2024-05-09 13:05 | XMS_ITS | Encounter Summary ---
Author Organization [facility] Address [address] [place] [address] Care Team Providers Care Mathematics Department Chair Name Role Phone Colette Anderson MD Primary Care Provider U Darrel Castro MD Primary Care Provider +1 -[phone] Encounter Details Date Type Department Care Team Description 03/15/2021 Refill Rheumatology [address] [address] Home Warner MD Social History Tobacco Use [...] Date Type Specialty Care Team Description 10/17/2024 Chronometer Assembler Report Abstract, Provider documented as of this encounter Visit Diagnoses Diagnosis Systemic lupus erythematosus (SLE) with pericarditis, unspecified SLE type (HCC) documented in this encounter Care Teams Mathematics Department Chair Relationship Specialty Start Date End Date Colette Anderson MD PCP - General Internal Medicine 02/26/1811/06 Darrel Tony MD [address] [place] [address] PCP - General Internal Medicine 11/22/21 documented as of this encounter
--- OUTSIDE RECORDS SUMMARY | 2024-05-09 13:05 | XMS_ITS | Encounter Summary ---
Author Organization [facility] Address [address] [place] [address] Care Team Providers Care Motorcyles Final Inspector Name Role Phone Darrel Tony MD Primary Care Provider +1 [phone] Encounter Details Date Type Department Care Team Description 03/16/2022 Pt. Non Urgent Medical Question Adult Medicine [address] [address] Darrel Tony MD [address] [place] [address] Social History Tobacco Use Types Packs/Day Years [...] Date Type Specialty Care Team Description 10/17/2024 Process Specialist Report Abstract, Provider documented as of this encounter Visit Diagnoses Not on filedocumented in this encounter Care Teams Motorcyles Final Inspector Relationship Specialty Start Date End Date Darrel Tony MD [address] [place] [address] PCP - General Internal Medicine 11/22/21 documented as of this encounter
--- OUTSIDE RECORDS SUMMARY | 2024-05-09 13:05 | XMS_ITS | Encounter Summary ---
Author Organization [facility] Address [address] [place] [address] Care Team Providers Care Heating And Cooling Systems Engineer Name Role Phone Colette Anderson MD Primary Care Provider U Darrel Castro MD Primary Care Provider +1 -[phone] Reason for Visit * Reason Onset Date Comments Walk In 01/06/2020 dizziness Encounter Details Date Type Department Care Team Description 01/06/2020 Telephone Adult Medicine - [place] [address] [place] [address] Colette Anderson MD Walk In (dizziness ) Social History Tobacco Use Types Packs/Day [...] encounter Miscellaneous Notes * Telephone Encounter - Charo Webster L.P.N. - 01/06/2020 12:08 PM EST [facility] just came for pt. Message to Dr. Jennings. Pt is out of lancets. Order pended. Please review and sign, if appropriate. Thank you! * Telephone Encounter - Charo Webster L.P.N. - 01/06/2020 11:41 AM EST Checked on pt again. She was able to test her blood sugar here. It was 402. She just took her metformin and is eating a cracker. Drinking from a bottle of water. She tells me again she thinks it's just dehydration . She hasn't been able to keep up with the bowel movements . I will continue to monitor. * Telephone Encounter - Charo Webster L.P.N. 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 She states she's had diarrhea x 3 days. Trying to drink lots of fluids and stay hydrated. She also c/o bad headache , dizziness/lightheadedness, and nausea. She feels like she's dehydrated . She is diabetic. She was unable to check her blood sugar as she is out of lancets. I s poke with Dr. Jennings. She agrees we should just call for ambulance transport to the ER. (Pt's is unable to pick her up and bring her.) I called [facility]. I'm told they will be here in about half an hour. I will continue to check on pt until the ambulance comes. She is currently stable. Resting comfortably in a wheelchair in the lab. * Telephone Encounter - Liss Bran L.P.N. 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 C/o dizziness/lightheadedness/diarrhea x 3 days. States has cold symptoms, tested NEG for COVID-19. Patient was brought over to adult med in a wheelchair - in exam room 221. documented in this encounter Plan of Treatment Upcoming Encounters Date Type Specialty Care Team Description 10/17/2024 Light Oil Operator Report Abstract, Provider documented as of this encounter Visit Diagnoses Not on filedocumented in this encounter Care Teams Heating And Cooling Systems Engineer Relationship Specialty Start Date End Date Colette Anderson MD PCP - General Internal Medicine 02/26/1811/06 Darrel Tony MD [address] [place] [address] PCP - General Internal Medicine 11/22/21 documented as of this encounter
== END 2024-05-09 11:44 | disposition home or self-care (01) ==
LOC: HO.HOSX 11:43
PROVIDERS: Visit Provider Orthopaedic Surgery
DX: M25.561 Pain in right knee (principal); Z96.651 Presence of right artificial knee joint; M25.461 Effusion, right knee
CPT/HCPCS: 73562; 99212

== ENCOUNTER 2024-05-09 13:07 | Outpatient (AMB) | payer MEDICARE, SELFPAY ==
--- NOTE | 2024-05-09 13:11 | MHC.OFFVIS ---
Intake Visit Reasons: 6WK PO: R TKA w/NE 04/03/24 Intake Note: Galina is a 59 year old female who presents today for a post operative appointment about 6 weeks s/p right total knee arthroplasty 04/03/24 NE Patient reports that she has already transitioned to outpatient PT. She is doing very well, continues to take Oxycodone PRN pain. No additional concerns today Allergies tramadol Allergy (Severe, Verified 05/09/24 13:12) severe rash trazodone Adverse Reaction (Severe, Verified 05/09/24 13:12) hives HPI HPI 6WK PO: R TKA w/NE 04/03/24: Details: Galina is a 59 year old female who presents today for a post operative appointment about 6 weeks s/p right total knee arthroplasty 04/03/24 NE Patient reports that she has already transitioned to outpatient PT. She is doing very well, continues to take Oxycodone PRN pain. No additional concerns today PFSH Medical History Arthritis Chronic renal insufficiency Glaucoma Pulmonary embolism GERD (gastroesophageal reflux disease) Diabetes Lupus anticoagulant disorder HTN (hypertension) Depression Osteoarthritis Lumbar spondylosis Smoker Bilateral knee swelling Surgical History History of esophagogastroduodenoscopy (EGD) H/O colonoscopy Hx of excision of mass Hx laparoscopic cholecystectomy Hx of tubal ligation Hx of section Family History Brother Diabetes Mother Hypertension Breast cancer, Onset Age: 49 Father Hypertension Maternal Grandmother Breast cancer Maternal Aunt Breast cancer, Onset Age: 53 Social History Household Members: Family and Children Household Members Other:: children Housing: House Are you a primary child day care center worker to a significant other at home: No Do you presently have visiting nurse or other home services: Yes (concrete building assembler) Alcohol intake: never Comment: all ordered meds give Patient Tobacco Use Status: Current everyday Tobacco user Tobacco use type: Cigarette Cigarette Packs Per Day: 0.5 Cigarettes Per Day: 10 Years Smoked: 32 service: No Current occupational status: unemployed and disabled Gender identity: Female Physical Exam Extrem Other: Incision clean dry and intact 5-90 degrees of motion Results Reviewed Results Reviewed: I personally reviewed relevant radiographs. RIght total knee arthroplasty in expected post operative position with no hardware complications or evidence of loosening Assessment & Plan Assessment & Plan (1) Status post total right knee replacement: Code(s): Z96.651 - Presence of right artificial knee joint Category: Surgical Plan: Doing well postop. May DC Lovenox 6 weeks postop. Continue therapy. Had preoperative loss of flexion so my expectation is that she may not obtain 130 degrees. She is aware of this. Overall however she is doing very well. Follow up 6 weeks. Orders: Orders XR knee RT 3V Today M25.561 - Pain in right knee Coding Level of Care Code Global (43732) Diagnoses Status post total right knee replacement Z96.651
--- OUTSIDE RECORDS SUMMARY | 2024-05-09 14:19 | XMS_ITS | Clinical Summary ---
Author Organization [facility] [address] [facility] Address [address] [place] [address] Phone Care Team Providers Care Education And Training Manager Name Role Phone Darrel Tony MD Primary Care Provider [phone] [phone] Allergies Active Allergy Reactions Criticality Noted Date [...] Team Description 04/30/2024 Telephone Internal Medicine - [address] [phone] Darrel Tony MD Med Refill 04/24/2024 Telephone Internal Medicine [address] [phone] Darrel Tony MD Forms/questionnaires ([employer]) 04/24/2024 Telephone Internal Medicine [address] [phone] Darrel Tony MD Forms/questionnaires ([employer]) 04/16/2024 Telephone Internal Medicine [address] [phone] Darrel Tony MD Request For Order(s) ([facility]) 03/27/2024 Telephone Internal Medicine [address] [phone] Darrel Tony MD Faxed Order ([facility] ) 03/26/2024 Telephone Internal Medicine - [address] [place] [phone] Darrel Tony MD faxed order 03/19/2024 [facility] [address] [place] [phone] Darrel Tony MD Chest Pain; GI Problem 02/29/2024 Telephone Internal Medicine - [address] [place] [phone] Darrel Tony MD Faxed Order ([facility] ) from Last 3 Months Immunizations [...] CHOLECYSTECTOMY 1998 PROCEDURE: LAPAROSCOPY, CHOLECYSTECTOMY SECTION PROCEDURE: [place] DELIVERY ONLY; COMMENT: X4 TUBAL LIGATION PROCEDURE: HISTORICAL TUBAL LIGATION CHOLECYSTECTOMY PROCEDURE: [place] LAPAROSCOPY SURG CHOLECYSTECTOMY Medical History Medical History Date Comments Other pulmonary embolism and infarction 1998 DX:Other pulmonary embolism and infarction 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; COMMENT: scalp, arms; + biopsy 11/2005 Systemic lupus erythematosus (CMS/HCC) 09/01/2006 DX:Systemic lupus erythemato espinoza (HCC); COMMENT: DISCOID LESIONS, SUB-ACUTE SKIN LESIONS ARTHRALGIAS, MILD PROTEINURIA + Anti-DNA, Anti-STORE MGR, Anti-Sm, SS-A Esophageal reflux DX:Esophageal reflux Essential [...] 11:00 AM EDT Office Visit Endocrinology - [facility] [address] [place] [address] Trish Hyatt PA [address] [place] [address] Health Maintenance Due Date Last Done Comments [...] RESULTING AGENCY - 05/08/2023 2:56 PM EDT [id number] THINPREP PAP, IMAGED: NEGATIVE FOR SQUAMOUS INTRAEPITHELIAL LESION AND MALIGNANCY . QUINN CARMICHAEL(ASCP) (CASE ELECTRONICALLY SIGNED 05 08 2023) RESULT OF APTIMA HIGH RISK HPV ASSAY: HIGH RISK HPV: ??NEGATIVE (SEROTYPES 16,18,31,33,35,39,45,51,52,56,58,59,66,68) COMPLETED ON 2023-05-08 ADEQUACY: SATISFACTORY ENDOCERVICAL/TRANSFORMATION ZONE COMPONENT ABSENT. SOURCE: THINPREP PAP HPV ANY DX: ??REFLEX 16 AND 18, CERVICAL, IMAGED CLINICAL INFORMATION: HPV ANY DIAGNOSIS. MENOPAUSE, Z12.4 Jackeline Bright [facility] ORDERABLES Jadyn roseann Result [...] Most Recently Relevant to Health Maintenance Insurance [facility] MEDICARE Member Subscriber Plan / Payer (Ef fective 2023-Present) Name:Galina Doyle Relation to Subscriber:Self Name:Galina Doyle Payer ID:[id number] Group ID:[id number] Type:Not on file Address: [place] [address] [address] [address] Care Teams Education And Training Manager Relationship Specialty Start Date End Date Darrel Tony MD [address] [place] [address] PCP - General Internal Medicine 11/22/21
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
--- OUTSIDE RECORDS SUMMARY | 2024-05-09 14:19 | XMS_ITS | Encounter Summary ---
Author Organization [facility] Address [address] [place] [address] Care Team Providers Care Raw Stock Drier Tender Name Role Phone Darrel Tony MD Primary Care Provider [phone] Reason for Visit * Reason Onset Date Comments Request For Order(s) 04/16/2024 [facility] Encounter Details Date Type Department Care Team (Late st Contact Info) Description 04/16/2024 [facility] [address] [place] [phone] Darrel Tony MD [address] [place] [address] Request For Order(s) ([facility]) Social History Tobacco Use Types Packs/Day [...] MD bin for signing, please fax to [phone]. documented in this encounter Plan of Treatment Upcoming Encounters Date Type Department Care Team (Late st Contact Info) Description 05/15/2024 11:00 AM EDT Office Visit Endocrinology [address] [address] Trish Hyatt PA [address] [place] [address] documented as of this encounter Visit Diagnoses Not on filedocumented in this encounter Care Teams Raw Stock Drier Tender Relationship Specialty Start Date End Date Darrel Tony MD [address] [place] [address] PCP - General Internal Medicine 11/22/21 documented as of this encounter
--- OUTSIDE RECORDS SUMMARY | 2024-05-09 14:19 | XMS_ITS | Clinical Summary ---
Author Organization [facility] Address [address] [address] Care Team Providers Care Child Neurologist Name Role Phone Unavailable Primary Care Provider [...]
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
== END 2024-05-09 13:41 | disposition home or self-care (01) ==
LOC: HO.HOS 13:08
PROVIDERS: PCP Internal Medicine; Visit Provider Orthopaedic Surgery
DX: Z96.651 Presence of right artificial knee joint (principal)
CPT/HCPCS: 99024

== ENCOUNTER → 2024-05-09 13:10 | Outpatient (BNV) | payer MEDICARE, SELFPAY | PROVIDERS: Visit Provider Radiology Neuroradiology | DX: M25.461 Effusion, right knee (principal); Z96.651 Presence of right artificial knee joint; M17.11 Unilateral primary osteoarthritis, right knee | CPT/HCPCS: 73562 ==

== ENCOUNTER 2024-05-21 09:02 | Outpatient (AMB) | payer MEDICARE, SELFPAY ==
--- NOTE | 2024-05-21 09:14 | MHC.OFFVIS ---
Vital Signs 05/21/24 09:19 Height 5 ft 9 in Weight 247 lb 9.266 oz BMI 36.6 BP 115/70 Blood Pressure Location Rt brachial Position Sitting Pulse 95 Pulse Source Pulse Oximeter Pulse Oximetry (%) 99 Oxygen Delivery Method Room Air Intake Visit Reasons: SLE Intake Note: Patient presents for SLE follow up and test results. Allergies tramadol Allergy (Severe, Verified 05/21/24 09:18) severe rash trazodone Adverse Reaction (Severe, Verified 05/21/24 09:18) hives Medication List - Last Reconciled 05/21/24 by Margaret Sheets MD acetaminophen 650 mg (2 x 325 mg) PO Q6H PRN 30 days amlodipine 2.5 mg PO QAM bupropion HCl XL 150 mg PO QAM celecoxib 200 mg PO BID 30 days cholecalciferol (vitamin D3) 50 mcg PO QAM clonidine HCl 0.2 mg PO BID PRN diclofenac sodium 1% 4 grams topical QID docusate sodium 100 mg PO BID 4 days gabapentin 1,200 mg (2 x 600 mg) PO TID NS hydrochlorothiazide 50 mg PO QAM hydroxychloroquine 200 mg PO BID insulin aspart U-100 2 - 8 units subcut TIDAC insulin glargine (Lantus Solostar U-100 Insulin) 65 units subcut BEDTIME lisinopril 20 mg PO QAM metformin 1,000 mg PO BID mirtazapine 30 mg PO BEDTIME ondansetron 4 mg Q8H PRN oxycodone 5 mg PO Q4H PRN 7 days quetiapine 50 mg PO BEDTIME terbinafine HCl 250 mg PO QAM tizanidine 4 mg PO TID PRN triamcinolone acetonide 0.1% 1 appl topical BID HPI Comments Details: Patient is a 59-year-old female with hypertension, diabetes, 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 Gill. At that time she was here for follow up. She reported that she was continuing to have flare-up of her lupus rashes on her upper back, upper chest, upper arms and apprise triamcinolone cream more today's with some relief. Evaluation showed that she had fairly well-controlled lupus oral and no changes made to medication Today patient continues to report ongoing new discoid lesions. She also reports chronic joint pain to her hands and wrists. Current doing physical therapy for her right knee Rheumatologic History: DISCOID LESIONS, SUB-ACUTE SKIN LESIONS 2009 ARTHRALGIAS, MILD PROTEINURIA - resolved; kidney bx 10/2019 - class II nephritis(sees Dr. Herrera) ++ Anti-DNA,++ Anti-TELEPHONE SOLICITOR SUPERVISOR++Anti-Sm++ SS-A On hydroxychloroquine Current Rheumatology Medication(s): Plaquenil 200 mg b.i.d. [facility] Medical History (Updated 05/21/24 @ 13:18 by Margaret Sheets MD) Lupus Osteoarthritis of right knee Arthritis Chronic renal insufficiency Glaucoma Pulmonary embolism GERD (gastroesophageal reflux disease) Diabetes Lupus anticoagulant disorder HTN (hypertension) Depression Osteoarthritis Lumbar spondylosis Lower back pain Smoker Bilateral knee swelling Hypertension Surgical History Status post right knee replacement History of esophagogastroduodenoscopy (EGD) H/O colonoscopy Hx of excision of mass Hx laparoscopic cholecystectomy Hx of tubal ligation Hx of section Family History Brother Diabetes Mother Hypertension Breast cancer, Onset Age: 49 Father Hypertension Maternal Grandmother Breast cancer Maternal Aunt Breast cancer, Onset Age: 53 Social History Household Members: Family and Children Household Members Other:: children Housing: House Are you a primary health care consultant to a significant other at home: No Do you presently have visiting nurse or other home services: Yes (box toe cementer) Alcohol intake: never Comment: all ordered meds give Patient Tobacco Use Status: Current everyday Tobacco user Tobacco use type: Cigarette Cigarette Packs Per Day: 0.5 Cigarettes Per Day: 10 Years Smoked: 32 service: No Current occupational status: unemployed and disabled Gender identity: Female Review of Systems Const Details: Review of Systems Constitutional: Denies fever, chills, weight loss ENT: Denies vision changes, eye pain or eye redness, dental caries, dry mouth GI: Denies nausea, vomiting, diarrhea, abdominal pain, change in BM Pulm: Denies SOB, CASPER, hemoptysis, wheezing Cards: Denies chest pain, palpitations Skin: Denies Raynaud's, rash, nail changes, photosensitivity, HIGH SCHOOL VICE PRINCIPAL: Denies headaches, weakness, paresthesias, recurrent falls MSK: as per HPI All other systems reviewed and are unremarkable except noted above Physical Exam Vital Signs: Last Vital Signs Pulse 95 05/21/24 09:19 BP 115/70 05/21/24 09:19 Pulse Ox 99 05/21/24 09:19 Oxygen Delivery Method Room Air 05/21/24 09:19 BMI result Body Mass Index 36.6 Vital signs reviewed Physical Examination CONSTITUITIONAL Patient alert and cooperative. Well appearing and in no apparent painful distress HEENT Conjunctiva and sclera clear. ?Pupils equal round and reactive to light. ?No lymphadenopathy. ? CHEST/RESPIRATORY SYSTEM Normal respiratory effort and able to speak in complete sentences. ?Clear to auscultation bilaterally. ?No crackles, rales, rhonchi, wheezes heard. CARDIAC SYSTEM Regular rate and rhythm. ?S1 and S2 heard no murmurs. ?Radial pulses intact bilaterally MSK Hands: ?Good recreation therapy aides teacher strength bilaterally. No deformities noted. ?No synovitis noted to the MCPs, PIPs or DIPs. ?No tenderness to palpation of these joints. Wrists: ?Full range of motion at the wrists without pain. ?No tenderness to palpation or synovitis noted to the wrists. Elbows: Full range of motion without pain. No tenderness, weakness, swelling, increased warmth or erythema. Shoulders: Full range of motion without pain. No tenderness, weakness, swelling, increased warmth or erythema. Knees: ?Right knee with swelling, warmth and tenderness to palpation. Full range of motion. Left knee without any abnormalities Ankles: Full range of motion. ?No tenderness, swelling, increased warmth or erythema.? Feet: ?Negative squeeze test. ?No tenderness to palpation or swelling of the MTPs. Tender points:?No tenderness to palpation of the bilateral trapezius, supraspinatus, greater trochanters, anterior costochondral junctions, bilateral gluteal areas, bilateral suboccipital muscle insertions SKIN Unable to see scalp because the patient had a wig on Scattered hyperpigmented lesions on her upper chest and upper back as well as in the contour of her ear. There was an active lesion over her left eyebrow. Results Reviewed Results Reviewed: Laboratory Tests 05/17/24 10:43 WBC 5.6 RBC 3.87 L Hgb 11.1 L Hct 35.1 L Plt Count 285 D ESR 69 H Sodium 141 Potassium 3.9 Chloride 107 Carbon Dioxide 27 BUN 19 H Creatinine 0.82 AST 19 ALT 9 Alkaline Phosphatase 84 C-Reactive Protein 2.27 H Immunology labs 05/17/24 10:43 Double Strand DNA Ab 1 Complement C3 156 Complement C4 20 05/09/23 01/15/24 03/22/24 10:27 10:33 09:21 Sm (Andujar) Antibody 7.2 POS A SM/TELEPHONE SOLICITOR SUPERVISOR IgG Antibody 6.8 POS A Beta-2-GPI IgG Ab >112.0 H >112.0 H Anti-Cardiolipin IgG Ab 89.3 H 88.9 H Urine tests 05/17/24 10:34 Urine Color Dark Yellow Urine Protein Trace Urine Blood Negative Protein/Creatinin Ratio 0.06 Assessment & Plan Assessment & Plan (1) Lupus: Comment: DISCOID LESIONS, SUB-ACUTE SKIN LESIONS 2009 ARTHRALGIAS, MILD PROTEINURIA - resolved; kidney bx 10/2019 - class II nephritis(sees Dr. 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 History of proteinuria that resolved. Given that she continues to have arthralgias and chronic discoid lesions with active lesions I think she warrants escalation in therapy. Her JAMES SLEDAI is 6 (joints and skin) indicating active lupus disease. It is reassuring that her double-stranded DNA is normal and her complements were also normal. She does have elevated inflammatory markers but given her recent operation and her currently inflamed knee that may be the source of her inflammatory marker elevation. We will try Saphnelo to see if this will help with her skin as well as her joints. Plan - Start anifrolumab infusions 300mg every 4 weeks - Continue plaquenil 300mg bid - RTC 4 months - Labs before visit: CBC, CMP, ESR, CRP, C3, C4, dsDNA, UA, UPC (2) Long-term use of hydroxychloroquine: Comment: eye exam OK 01/14; 07/17, 05/19, 06/21, 09/24, 12/26. 06/27, 06/28 Code(s): Z79.899 - Other [facility]p (current) drug therapy Category: Medical Plan: #Long-term Use of Hydroxychloroquine Discussed with patient the risks and benefits of hydroxychloroquine in managing the rheumatic condition Benefits include: - Reduced pain, reduce mortality, maintenance of remission and reduction of flares Risks include: - GI upset, skin hyperpigmentation, retinal toxicity (especially after more than 5 years of use), myopathy Advised yearly ophthalmology visits Last ophthalmology visit: 01/2024 (3) [facility] (current) use of immunosuppressive biologic: Code(s): Z79.620 - [facility] (current) use of immunosuppressive biologic Plan: #Long-term use Anifrolumab Discussed with patient the risks and benefits of hydroxychloroquine in managing the rheumatic condition Benefits include: - Reduced pain, reduce mortality, maintenance of remission and reduction of flares Risks include: - Increased susceptibility to serious infections particularly viral infections like herpes zoster (shingles), respiratory tract infections and infusion related reactions Plan I spent 42 minutes reviewing the record and labs, taking a history, examining the patient, discussing the treatment plan, ordering diagnostic work up and documenting in the medical record Orders: Orders Anti DNA DS Antibody 4 Months M32.9 - Systemic lupus erythematosus, unspecified Protein Creatinine Ratio, Ur 4 Months M32.9 - Systemic lupus erythematosus, unspecified Complement C3 4 Months M32.9 - Systemic lupus erythematosus, unspecified Complement C4 4 Months M32.9 - Systemic lupus erythematosus, unspecified Complete Blood Count Auto Diff 4 Months M32.9 - Systemic lupus erythematosus, unspecified Comprehensive Met. Panel 4 Months M32.9 - Systemic lupus erythematosus, unspecified C Reactive Protein 4 Months M32.9 - Systemic lupus erythematosus, unspecified Erythrocyte Sedimentation Rate 4 Months M32.9 - Systemic lupus erythematosus, unspecified UA w Microscopic 4 Months M32.9 - Systemic lupus erythematosus, unspecified Vitamin D 25-OH (D2 and D3) 4 Months E55.9 - Vitamin D deficiency, unspecified Referrals Infusion Center Notification M32.9 - Systemic lupus erythematosus, unspecified Coding Level of Care Code Est Pt Level 5 (94762) Complex EM visit Add On G2211 Diagnoses Lupus M32.9 Long-term use of hydroxychloroquine Z79.899 [facility] (current) use of immunosuppressive biologic Z79.620
[2024-05-21 09:19] VITALS: BP 115/70; PULSE 95; O2SAT 99; BMI 36.6
--- OUTSIDE RECORDS SUMMARY | 2024-05-21 09:48 | XMS_ITS | Encounter Summary ---
Author Organization [facility] Address [address] [place] [address] Care Team Providers Care Cemetery Worker Name Role Phone Colette Anderson MD Primary Care Provider U Darrel Castro MD Primary Care Provider +1 -[phone] Encounter Details Date Type Department Care Team Description 01/06/2021 PNO Controlled Substance Contract Medical Records [address] [place] [address] Abstract, Provider Social History Tobacco Use Types [...] Date Type Specialty Care Team Description 10/17/2024 [address] Patcher Report Abstract, Provider documented as of this encounter Visit Diagnoses Not on filedocumented in this encounter Care Teams Cemetery Worker Relationship Specialty Start Date End Date Colette Anderson MD PCP - General Internal Medicine 02/26/1811/06 Darrel Tony MD [address] [place] [address] PCP - General Internal Medicine 11/22/21 documented as of this encounter
--- OUTSIDE RECORDS SUMMARY | 2024-05-21 09:48 | XMS_ITS | Encounter Summary ---
Author Organization [facility] Address [address] [place] [address] Care Team Providers Care Steel Die Printer Name Role Phone Darrel Tony MD Primary Care Provider +1 -[phone] Encounter Details Date Type Department Care Team Description 08/30/2022 Orders Only Medical Records [address] [place] [address] Abstract, Provider Social History Tobacco Use Types [...] Date Type Specialty Care Team Description 10/17/2024 Delivery Manager Report Abstract, Provider documented as of this encounter Procedures Procedure Name Priority Date/Time Associated Diagnosis Comments OUTSIDE CT Routine 08/11/2022 documented in this encounter Results * OUTSIDE CT (08/11/2022) Provider Abstract RADIOLOGY documented in this encounter Visit Diagnoses Not on filedocumented in this encounter Care Teams Steel Die Printer Relationship Specialty Start Date End Date Darrel Tony MD [address] [place] [address] PCP - General Internal Medicine 11/22/21 documented as of this encounter
--- OUTSIDE RECORDS SUMMARY | 2024-05-21 09:48 | XMS_ITS | Encounter Summary ---
[facility] Organization [facility] Address [address] [place] [address] Care Team Providers Care Expense Analyst Name Role Phone Colette Anderson MD Primary Care Provider U Darrel Castro MD Primary Care Provider +1 -[phone] Reason for Visit * Reason Onset Date Comments Faxed Refill 02/27/2020 Encounter Details Date Type Department Care Team Description 02/27/2020 Refill Adult Medicine - [place] [address] [place] [address] Colette Anderson MD Faxed Refill Social History [...] have Coronavirus / COVID-19? No / Unsure 02/14/2020 9:02 AM EST documented as of this encounter Miscellaneous Notes * Telephone Encounter - Sadie Streeter M.A. - 02/27/2020 10:12 AM EST [place] 10.7.20 Lab Results Component Value Date NA 142 02/14/2020 K 3.8 02/14/2020 CO2 24 02/14/2020 CL 110 02/14/2020 BUN 17 02/14/2020 CREAT 0.88 02/14/2020 GLU 135 02/14/2020 CA 9.4 02/14/2020 GFR > 60 02/14/2020 * Telephone Encounter - Robyn Quintana - 02/27/2020 9:49 AM EST Patient would like script to be: [...] N/A Patients current insurance carrier is: Payor: [employer] / Plan: POS $20/[address] [facility] [id number] [facility] / Product Type: POS [id number] documented in this encounter Plan of Treatment Upcoming Encounters Date Type Specialty Care Team Description 10/17/2024 Second Baller Report Abstract, Provider documented as of this encounter Visit Diagnoses Not on filedocumented in this encounter Care Teams Expense Analyst Relationship Specialty Start Date End Date Colette Anderson MD PCP - General Internal Medicine 02/26/1811/06 Darrel Tony MD [address] [place] [address] PCP - General Internal Medicine 11/22/21 documented as of this encounter
--- OUTSIDE RECORDS SUMMARY | 2024-05-21 09:48 | XMS_ITS | Encounter Summary ---
Author Organization [facility] Address [address] [place] [address] Care Team Providers Care Manager Hotel Name Role Phone Colette Anderson MD Primary Care Provider U Darrel Castro MD Primary Care Provider +1 -[phone] Reason for Visit * Reason Onset Date Comments Prior Authorization 11/03/2020 Encounter Details Date Type Department Care Team Description 11/03/2020 Telephone Adult [facility] - [address] [address] Colette Anderson MD Prior Authorization Social History [...] Date Type Specialty Care Team Description 10/17/2024 Galvanometer Assembler Report Abstract, Provider documented as of this encounter Visit Diagnoses Not on filedocumented in this encounter Care Teams Manager Hotel Relationship Specialty Start Date End Date Colette Anderson MD PCP - General Internal Medicine 02/26/1811/06 Darrel Tony MD [address] [place] [address] PCP - General Internal Medicine 11/22/21 documented as of this encounter
--- OUTSIDE RECORDS SUMMARY | 2024-05-21 09:48 | XMS_ITS | Encounter Summary ---
Author Organization [facility] Address [address] [place] [address] Care Team Providers Care Heavy Equipment Sales Manager Name Role Phone Darrel Tony MD Primary Care Provider +1 -[phone] Encounter Details Date Type Department Care Team Description 11/09/2022 Old Medical Records Medical Records [address] [place] [address] Home Warner MD Social History Tobacco Use [...] Type Specialty Care Team Description 10/17/2024 Health Safety Specialist Report Abstract, Provider documented as of this encounter Visit Diagnoses Not on filedocumented in this encounter Care Teams Heavy Equipment Sales Manager Relationship Specialty Start Date End Date Darrel Tony MD [address] [place] [address] PCP - General Internal Medicine 11/22/21 documented as of this encounter
--- OUTSIDE RECORDS SUMMARY | 2024-05-21 09:48 | XMS_ITS | Encounter Summary ---
Author Organization [facility] Address [address] [place] [address] Care Team Providers Care State Farm Agent Name Role Phone Colette Anderson MD Primary Care Provider U Darrel Castro MD Primary Care Provider +1 -[phone] Encounter Details Date Type Department Care Team Description 07/30/2020 Refill Adult Medicine [address] [address] Colette Anderson MD Social History Tobacco Use [...] have Coronavirus / COVID-19? No / Unsure 07/27/2020 10:02 AM EDT documented as of this encounter Plan of Treatment Upcoming Encounters Date Type Specialty Care Team Description 10/17/2024 Heater Planer Operator Report Abstract, Provider documented as of this encounter Visit Diagnoses Not on filedocumented in this encounter Care Teams State Farm Agent Relationship Specialty Start Date End Date Colette Anderson MD PCP - General Internal Medicine 02/26/1811/06 Darrel Tony MD [address] [place] [address] PCP - General Internal Medicine 11/22/21 documented as of this encounter
--- OUTSIDE RECORDS SUMMARY | 2024-05-21 09:48 | XMS_ITS | Encounter Summary ---
Author Organization [facility] Address [address] [place] [address] Care Team Providers Care Physician Executive Name Role Phone Darrel Tony MD Primary Care Provider +1 -[phone] Encounter Details Date Type Department Care Team Description 08/16/2022 Pt. Non Urgent Medical Question Adult Medicine [address] [address] Darrel Tony MD [address] [place] [address] Social History Tobacco Use Types Packs/Day Years [...] Date Type Specialty Care Team Description 10/17/2024 Tire Service Technician Report Abstract, Provider documented as of this encounter Visit Diagnoses Not on filedocumented in this encounter Care Teams Physician Executive Relationship Specialty Start Date End Date Darrel Tony MD [address] [place] [address] PCP - General Internal Medicine 11/22/21 documented as of this encounter
--- OUTSIDE RECORDS SUMMARY | 2024-05-21 09:48 | XMS_ITS | Encounter Summary ---
Author Organization [facility] Address [address] [place] [address] Care Team Providers Care Jewelry Appraiser Name Role Phone Darrel Tony MD Primary Care Provider +1 -[phone] Encounter Details Date Type Department Care Team Description 09/19/2022 Pt. Non Urgent Medical Question Adult Medicine [address] [address] Darrel Tony MD [address] [place] [address] Social History Tobacco Use Types Packs/Day Years [...] Telephone Encounter - Sharon Javier M.A. - 09/20/2022 8:01 AM EDTFrom: Galina Doyle To: Trudy Tony Sent: 09/19/2022 5:36 PM EDT Subject: Memory/focus loss and bursitis I'd like to make an appointment for recent occurrences of loss of focus and memory loss. Also I have left elbow bursitis with extreme pain in my forearm and elbow. Galina Doyle documented in this encounter Plan of Treatment Upcoming Encounters Date Type Specialty Care Team Description 10/17/2024 Acquisition Analyst Report Abstract, Provider documented as of this encounter Visit Diagnoses Not on filedocumented in this encounter Care Teams Jewelry Appraiser Relationship Specialty Start Date End Date Darrel Tony MD [address] [place] [address] PCP - General Internal Medicine 11/22/21 documented as of this encounter
--- OUTSIDE RECORDS SUMMARY | 2024-05-21 09:48 | XMS_ITS | Encounter Summary ---
Author Organization [facility] Address [address] [place] [address] Care Team Providers Care Derrick Boat Lever Operator Name Role Phone Darrel Tony MD Primary Care Provider +1 -[phone] Encounter Details Date Type Department Care Team Description 01/25/2023 Pt. Non Urgent Medical Question OBGYN - [address] [address] Daniella Marion, [address] [place] [address] Social History Tobacco Use Types Packs/Day Years [...] Date Type Specialty Care Team Description 10/17/2024 Architectural Examiner Report Abstract, Provider documented as of this encounter Visit Diagnoses Not on filedocumented in this encounter Care Teams Derrick Boat Lever Operator Relationship Specialty Start Date End Date Darrel Tony MD [address] [place] [address] PCP - General Internal Medicine 11/22/21 documented as of this encounter
--- OUTSIDE RECORDS SUMMARY | 2024-05-21 09:48 | XMS_ITS | Encounter Summary ---
Author Organization [facility] Address [address] [place] [address] Care Team Providers Care Tribal Judge Name Role Phone Colette Anderson MD Primary Care Provider U Darrel Castro MD Primary Care Provider +1 -[phone] Encounter Details Date Type Department Care Team Description 02/02/2021 Pt. Non Urgent Medical Question Adult Medicine [address] [address] Colette Anderson MD Social History Tobacco Use [...] as of this encounter Progress Notes * Nano Campo M.A. - 02/08/2021 9:00 AM EST Please see Catherine msg and advise documented in this encounter Miscellaneous Notes * Telephone Encounter - Sharon Javier M.A. - 02/02/2021 1:21 PM ESTFrom: Galina Doyle To: Meek Jennings Sent: 02/02/2021 1:16 PM EST Subject: Refill and referral I haven't been contacted by anyone yet can you please tell me who the referral was so i can give them a call? Also need a refill script for the oxy 5mg please. Galina Doyle documented in this encounter Plan of Treatment Upcoming Encounters Date Type Specialty Care Team Description 10/17/2024 X Ray Technologist Report Abstract, Provider documented as of this encounter Visit Diagnoses Not on filedocumented in this encounter Care Teams Tribal Judge Relationship Specialty Start Date End Date Colette Anderson MD PCP - General Internal Medicine 02/26/1811/06 Darrel Tony MD [address] [place] [address] PCP - General Internal Medicine 11/22/21 documented as of this encounter
--- OUTSIDE RECORDS SUMMARY | 2024-05-21 09:48 | XMS_ITS | Encounter Summary ---
Author Organization [facility] Address [address] [place] [address] Care Team Providers Care Carpenter Assembler Name Role Phone Darrel Tony MD Primary Care Provider +1 -[phone] Reason for Visit * Reason Onset Date Comments refill request 09/11/2022 Encounter Details Date Type Department Care Team Description 09/11/2022 Refill Internal Medicine - [facility] [address] [facility], [address] [place] [address] Darrel Tony MD [address] [place] [address] refill request Social History Tobacco Use Types [...] Zolpidem Tartrate 10 Mg Tablet 30 30 [facility] [id number] [facility] (1855) 0/0 0.50 [place] 08/24/2022 08/24/2022 2 Gabapentin 600 Mg Tablet 168 28 [facility] [id number] [facility] (1855) 0/2 4.02 [place] 08/15/2022 08/15/2022 2 Oxycodone Hcl (Ir) 10 Mg Tab 42 28 [facility] [id number] [facility] (1855) 0/0 22.50 [place] 07/29/2022 2022 2 Gabapentin 600 Mg Tablet 168 28 [facility] [id number] [facility] (1855) 0/1 4.02 [place] 07/29/2022 06/13/2022 2 Zolpidem Tartrate 10 Mg Tablet 28 28 [facility] [id number] [facility] (1855) 0/0 0.50 [place] 07/15/2022 07/15/2022 2 Oxycodone Hcl (Ir) 10 Mg Tab 42 14 [facility] [id number] [facility] (1855) 0/0 45.00 [place] 06/24/2022 2022 1 * Telephone Encounter - Gayle Gandara - 09/13/2022 9:36 AM EDT [facility], asking if [facility] can be sent [facility] [address] (Listed below) * Telephone Encounter - Marcie [...] Zolpidem Tartrate 10 Mg Tablet 30 30 [facility] [id number] [facility] (1855) 0/0 0.50 L[place] 08/24/2022 08/24/2022 2 Gabapentin 600 Mg Tablet 168 28 [facility] [id number] [facility] (1855) 0/2 4.02 [place] 08/15/2022 08/15/2022 2 Oxycodone Hcl (Ir) 10 Mg Tab 42 28 [facility] [id number] [facility] (1855) 0/0 22.50 [place] 07/29/2022 2022 2 Gabapentin 600 Mg Tablet 168 28 [facility] [id number] [facility] (1855) 0/1 4.02 [place] 07/29/2022 06/13/2022 2 Zolpidem Tartrate 10 Mg Tablet 28 28 [facility] [id number] [facility] (1855) 0/0 0.50 [place] 07/15/2022 07/15/2022 2 Oxycodone Hcl (Ir) 10 Mg Tab 42 14 [facility] [id number] [facility] (1855) 0/0 45.00 [place] 06/24/2022 2022 1 Gabapentin 600 Mg Tablet 180 30 [facility] [id number] [facility] (5748) 2/3 4.02 [place] 06/22/2022 05/02/2022 1 Zolpidem Tartrate 10 Mg Tablet 30 30 [facility] [id number] [facility] (1855) 0/0 0.50 [place] 06/13/2022 06/13/2022 1 Oxycodone Hcl (Ir) 5 Mg Tablet 84 28 [facility] [id number] [facility] (1855) 0/0 22.50 [place] 05/23/2022 03/07/2022 1 Zolpidem Tartrate 10 Mg Tablet 30 30 [facility] [id number] [facility] (1855) 1/1 0.50 [place] 05/21/2022 2022 1 Gabapentin 600 Mg Tablet 180 30 Ja [facility]j [id number] [facility] (7608) 1/3 4.02 [place] 05/12/2022 05/12/2022 1 Oxycodone Hcl (Ir) 5 Mg Tablet 84 28 [facility] [id number] [facility] (1855) 0/0 22.50 [place] 04/25/2022 04/25/2022 1 Zolpidem Tartrate 10 Mg Tablet 30 30 [facility] [id number] [facility] (1855) 0/0 0.50 LME [place] 2022 2022 1 Gabapentin 600 Mg Tablet 180 30 Ja [facility] [id number] [facility] (7608) 0/3 4.02 LM documented in this encounter Plan of Treatment Upcoming Encounters Date Type Specialty Care Team Description 10/17/2024 Mediator Report Abstract, Provider documented as of this encounter Visit Diagnoses Not on filedocumented in this encounter Care Teams Carpenter Assembler Relationship Specialty Start Date End Date Darrel Tony MD [address] [place] [address] PCP - General Internal Medicine 11/22/21 documented as of this encounter
--- OUTSIDE RECORDS SUMMARY | 2024-05-21 09:48 | XMS_ITS | Encounter Summary ---
[facility] Address [address] [place] [address] Care Team Providers Care Insurance Examining Clerk Name Role Phone Darrel Tony MD Primary Care Provider +1 -[phone] Encounter Details Date Type Department Care Team Description 08/27/2022 CGM Report Medical Records [address] [place] [address] Abstract, Provider Social History Tobacco Use Types [...] Date Type Specialty Care Team Description 10/17/2024 Barrel Washer Machine Report Abstract, Provider documented as of this encounter Visit Diagnoses Not on filedocumented in this encounter Care Teams Insurance Examining Clerk Relationship Specialty Start Date End Date Darrel Tony MD [address] [place] [address] PCP - General Internal Medicine 11/22/21 documented as of this encounter
--- OUTSIDE RECORDS SUMMARY | 2024-05-21 09:48 | XMS_ITS | Encounter Summary ---
Author Organization [facility] Address [address] [place] [address] Care Team Providers Care Wet End Operator Name Role Phone Darrel Tony MD Primary Care Provider +1 -[phone] Encounter Details Date Type Department Care Team Description 01/31/2023 Orders Only Medical Records [address] [place] [address] Cade Seals MD Social History Tobacco Use [...] Type Specialty Care Team Description 10/17/2024 Machine Made Shoe Unit Worker Report Abstract, Provider documented as of this encounter Procedures Procedure Name Priority Date/Time Associated Diagnosis Comments OUTSIDE CT Routine 01/29/2023 OUTSIDE PLAIN FILM Routine 01/29/2023 documented in this encounter Results * OUTSIDE PLAIN FILM (01/29/2023) [facility] RADIOLOGY * OUTSIDE CT (01/29/2023) Cade Seals MD RADIOLOGY documented in this encounter Visit Diagnoses Not on filedocumented in this encounter Care Teams Wet End Operator Relationship Specialty Start Date End Date Darrel Tony MD [address] [place] [address] PCP - General Internal Medicine 11/22/21 documented as of this encounter
--- OUTSIDE RECORDS SUMMARY | 2024-05-21 09:48 | XMS_ITS | Encounter Summary ---
Author Organization [facility] Address [address] [place] [address] Care Team Providers Care Wood Car Builder Name Role Phone Colette Anderson MD Primary Care Provider U Darrel Castro MD Primary Care Provider +1 -[phone] Reason for Visit * Reason Onset Date Comments Provider Call Back 05/29/2018 Encounter Details Date Type Department Care Team Description 05/29/2018 Telephone Adult Medicine B - [place] [address] [place] [address] Trish Hyatt PA-C [address] [place] [address] Provider Call Back Social History Tobacco Use [...] which was seen on 05/01/18. Faxed to [phone] Caller offered to speak with the nurse for assistance: YES Response: Patient offered to speak with nurse for assistance and patient agreed. Message forwarded to nurse. documented in this encounter Plan of Treatment Upcoming Encounters Date Type Specialty Care Team Description 10/17/2024 Tractor Driver Report Abstract, Provider documented as of this encounter Visit Diagnoses Not on filedocumented in this encounter Care Teams Wood Car Builder Relationship Specialty Start Date End Date Colette Anderson MD PCP - General Internal Medicine 02/26/1811/06 Darrel Tony MD [address] [place] [address] PCP - General Internal Medicine 11/22/21 documented as of this encounter
--- OUTSIDE RECORDS SUMMARY | 2024-05-21 09:48 | XMS_ITS | Encounter Summary ---
Author Organization [facility] Address [address] [place] [address] Care Team Providers Care Catapult And Arresting Gear Officer Name Role Phone Colette Anderson MD Primary Care Provider U Darrel Castro MD Primary Care Provider +1 -[phone] Encounter Details Date Type Department Care Team Description 10/22/2020 Pt. Non Urgent Medical Question Adult Medicine [address] [address] Colette Anderson MD Social History Tobacco Use [...] Telephone Encounter - Melinda Hawkins M.A. - 10/22/2020 12:00 PM EDTFrom: Galina Doyle To: Meek Jennings Sent: 10/22/2020 11:06 AM EDT Subject: Pain I am seeing Winter Freeman at [facility] and I am still in a lot of pain. I have an appointment on 10/27 with Kimberli with [facility], is there any way I can get an appointment on that day to see you for this please? documented in this encounter Plan of Treatment Upcoming Encounters Date Type Specialty Care Team Description 10/17/2024 Chute Puller Report Abstract, Provider documented as of this encounter Visit Diagnoses Not on filedocumented in this encounter Care Teams Catapult And Arresting Gear Officer Relationship Specialty Start Date End Date Colette Anderson MD PCP - General Internal Medicine 02/26/1811/06 Darrel Tony MD [address] [place] [address] PCP - General Internal Medicine 11/22/21 documented as of this encounter
--- OUTSIDE RECORDS SUMMARY | 2024-05-21 09:48 | XMS_ITS | Encounter Summary ---
Author Organization [facility] Address [address] [place] [address] Care Team Providers Care B And B Gang Worker Name Role Phone Darrel Tony MD Primary Care Provider +1 -[phone] Reason for Visit * Reason Onset Date Comments refill request 03/16/2023 Encounter Details Date Type Department Care Team Description 03/16/2023 Refill Adult Medicine B - [place] [address] [place] [address] Suzanne Winsotn, PLYCOR OPERATOR [address] [place] [address] refill request Social History Tobacco Use Types [...] Tartrate 10 Mg Tablet 30 30 Sh [facility] [id number] [facility] (1855) 0/0 0.50 LME [place] 02/16/2023 02/13/2023 2 Oxycodone Hcl (Ir) 10 Mg Tab 42 28 Te Sva [id number] [facility] (4352) 0/0 22.50 [place] 02/11/2023 01/13/2023 2 Gabapentin 600 Mg Tablet 168 28 Iraj [id number] [facility] (1855) 1/4 4.02 [place] 02/10/2023 02/10/2023 2 Oxycodone Hcl (Ir) 10 Mg Tab 10 7 Ka Gun [id number] [facility]vs (4352) 0/0 21.43 [place] 01/23/2023 01/12/2023 2 Zolpidem Tartrate 10 Mg Tablet 28 28 Sh [facility] [id number] [facility] (1855) 0/0 0.50 [place] 01/23/2023 01/13/2023 2 Gabapentin 600 Mg Tablet 168 28 Iraj [id number] [facility] (1855) 0/4 4.02 [place] 01/11/2023 01/11/2023 2 Oxycodone Hcl (Ir) 10 Mg Tab 42 28 Ka Gun [id number] [facility] (4352) 0/0 22.50 MME Private Pay [place] 12/12/2022 12/12/2022 2 Oxycodone Hcl (Ir) 10 Mg Tab 42 28 Te Sva [id number] [facility]vs (4352) 0/0 22.50 MME [place] 12/01/2022 11/18/2022 2 Zolpidem Tartrate 10 Mg Tablet 28 28 Sh [facility] [id number] [facility] (1855) 0/0 0.50 LME [place] 11/20/2022 08/24/2022 2 Gabapentin 600 Mg Tablet 168 28 Ja Iraj [id number] [facility] (1855) 2/2 4.02 LME [place] 11/10/2022 11/10/2022 2 Oxycodone Hcl (Ir) 10 Mg Tab 42 28 Ka Gun [id number] [facility] (4352) 0/0 22.50 MME Medicaid [place] 10/13/2022 08/24/2022 2 Gabapentin 600 Mg Tablet 168 28 Ja [facility] [id number] C[facility] (1855) 1/2 4.02 LME [place] 10/13/2022 10/13/2022 2 Oxycodone Hcl (Ir) 10 Mg Tab 42 14 Ka Gun [id number] [facility] (4352) 0/0 45.00 MME [place] 10/12/2022 10/12/2022 2 Zolpidem Tartrate 10 Mg Tablet 28 28 Sh [facility] [id number] [facility] (1855) 0/0 0.50 LME [place] 09/13/2022 09/13/2022 2 Oxycodone Hcl (Ir) 10 Mg Tab 42 28 Ka Gun [id number] [facility] (4352) 0/0 documented in this encounter Plan of Treatment Upcoming Encounters Date Type Specialty Care Team Description 10/17/2024 [place] Dam Pumper Report Abstract, Provider Scheduled Orders Name Type [...] POSITIVE( A) ND 07/11/2023 3:53 PM EDT [facility] Comment: Assay cutoff 100 ng/mL Semi-quantitative assay for screening purposes only. Unconfirmed screening result should not be used for non-medical purposes. *ALTERNATE METHOD CONFIRMATION DONE UPON REQUEST ONLY* 07/11/2023 1:47 PM EDT 07/11/2023 1:48 PM EDT Narrative [facility] - 07/11/2023 3:53 PM EDT Release to patient->Immediate Darrel Tony MD LAB [facility] * (ABNORMAL) DRUG OF ABUSE SCREEN (07/11/2023 1:47 PM EDT) BENZODIAZEPINE, URINE NONE DETECTED ND 07/11/2023 3:48 PM EDT [facility] Comment: Assay cutoff 200 ng/mL Semi-quantitative assay for screening purposes only. Unconfirmed screening result should not be used for non-medical purposes. *ALTERNATE METHOD CONFIRMATION DONE UPON REQUEST ONLY* OPIATES, URINE POSITIVE(A) ND 3:48 PM EDT [facility] Comment: Assay cutoff 300 ng/mL Semi-quantitative assay for screening purposes only. Unconfirmed screening result should not be used for non-medical purposes. *ALTERNATE METHOD CONFIRMATION DONE UPON REQUEST ONLY* BARBITURATES, URINE NONE DETECTED ND 07/11/2023 3:48 PM EDT [facility] Comment: Assay cutoff 200 ng/mL Semi-quantitative assay for screening purposes only. Unconfirmed screening result should not be used for non-medical purposes. *ALTERNATE METHOD CONFIRMATION DONE UPON REQUEST ONLY* PAIN AMPHETAMINES NONE DETECTED ND 07/11/2023 3:48 PM EDT [facility] Comment: Assay cutoff 1000 ng/mL Semi-quantitative assay for screening purposes only. Unconfirmed screening result should not be used for non-medical purposes. *POSITIVE RESULTS ARE AUTOMATICALLY SENT FOR ALTERNATE METHOD CONFIRMATION* PAIN COCAINE NONE DETECTED ND 07/11/2023 3:48 PM EDT [facility] Comment: Assay cutoff 300 ng/mL Semi-quantitative assay for screening purposes only. Unconfirmed screening result should not be used for non-medical purposes. *POSITIVE RESULTS ARE AUTOMATICALLY SENT FOR ALTERNATE METHOD CONFIRMATION* PAIN CANNABINOID NONE DETECTED ND 07/11/2023 3:48 PM EDT [facility] Comment: Assay cutoff 50 ng/mL Semi-quantitative assay for screening purposes only. Unconfirmed screening result should not be used for non-medical purposes. *POSITIVE RESULTS ARE AUTOMATICALLY SENT FOR ALTERNATE METHOD CONFIRMATION* 07/11/2023 1:47 PM EDT 07/11/2023 1:48 PM EDT Narrative [facility] - 07/11/2023 3:48 PM EDT Release to patient->Immediate Darrel Tony MD LAB [facility] documented in this encounter Visit Diagnoses Diagnosis [...] (HCC) documented in this encounter Care Teams B And B Gang Worker Relationship Specialty Start Date End Date Darrel Tony MD [address] [place] [id number] PCP - General Internal Medicine 11/22/21 documented as of this encounter
--- OUTSIDE RECORDS SUMMARY | 2024-05-21 09:48 | XMS_ITS | Encounter Summary ---
Author Organization [facility] Address [address] [place] [address] Care Team Providers Care Shaft Repairer Name Role Phone Colette Anderson MD Primary Care Provider U Darrel Castro MD Primary Care Provider [phone] [phone] Reason for Visit * Reason Onset Date Comments Prior Authorization 09/21/2020 Encounter Details Date Type Department Care Team Description 09/21/2020 Telephone Adult Medicine B - [place] [address] [place] [address] Colette Anderson MD Prior Authorization Social History [...] have Coronavirus / COVID-19? No / Unsure 09/18/2020 2:07 PM EDT documented as of this encounter Miscellaneous Notes * Telephone Encounter - Robyn Mullergelalewis - 09/21/2020 11:38 AM EDT Prior Authorization for Medication-do not complete and send this encounter unless you have the fax from the pharmacy. Is this a Cover My Meds request: Yes -- Nagy Code [id number] Name of Medication Continuous Blood Gluc Health Club Manager (Dexcom G6 Health Club Manager) Device Dose of Medication NA What is the RX # from the faxed refill? NA How does patient take this med? What Pharmacy did the fax come from: [facility] Pharmacy fax #: [phone] documented in this encounter Plan of Treatment Upcoming Encounters Date Type Specialty Care Team Description 10/17/2024 Top Collar Baster Report Abstract, Provider documented as of this encounter Visit Diagnoses Not on filedocumented in this encounter Care Teams Shaft Repairer Relationship Specialty Start Date End Date Colette Anderson MD PCP - General Internal Medicine 02/26/1811/06 Darrel Tony MD [address] [place] [address] PCP - General Internal Medicine 11/22/21 documented as of this encounter
--- OUTSIDE RECORDS SUMMARY | 2024-05-21 09:48 | XMS_ITS | Encounter Summary ---
Author Organization [facility] Address [address] [place] [address] Care Team Providers Care Insurance Commissioner Name Role Phone Darrel Tony MD Primary Care Provider [phone] [phone] Reason for Visit * Reason Onset Date Comments Medication 09/26/2022 Encounter Details Date Type Department Care Team Description 09/26/2022 Refill Gastroenterology [address] [place] [phone] Rufus Bernard MD [address] [place] [id number] Medication Social History Tobacco Use Types Packs/Day [...] Date Type Specialty Care Team Description 10/17/2024 Gun Numberer Report Abstract, Provider documented as of this encounter Visit Diagnoses Not on filedocumented in this encounter Care Teams Insurance Commissioner Relationship Specialty Start Date End Date Darrel Tony MD [address] [place] [address] [place] [address] PCP - General Internal Medicine 11/22/21 documented as of this encounter
--- OUTSIDE RECORDS SUMMARY | 2024-05-21 09:48 | XMS_ITS | Data Portability ---
Author Organization [place] [facility] Address [address] [place] [id number] Care Team Providers Care Cleaning Technician Name Role Phone [facility] Primary Care Provi nahum HIM CCA OTHER Assessment No assessment recorded. Plan of Treatment Reminders Order Date Submit Date Provider Last Modified By Organization Details Last Modified Time Details Appointments None recorded. Lab BMP, serum or plasma [address], [address] [place] [address], [phone] 5 13:22:39 rapid SARS CoV 2 Ag, QL IA, respiratory specimen [address] [place] [address], [phone] 5 13:22:39 rapid flu (A+B) [address] [place] [address], [phone] 5 13:22:39 Referral None recorded. Procedures None recorded. Surgeries None recorded. Imaging None recorded. Medication Orders ondansetron 4 mg disintegrat ing tablet 2024 [facility][id number], [address] [place], [address], 5 12:41:16 Patient TargetsNo targets recorded. Patient [...] Name and Address Organization Details Recorded Time 87713 trazodone medicatio n Not available Not available Not available 03/19/2024 64063 Rx[facility] Available [facility] 5 10:04:02 85746 tramadol medicatio n Not available Not available Not available 03/19/2024 04925 RxNorm Not Available [facility] 5 10:04:02 Medications Name Sig Start Date [...] Address Organization Details Last Updated DateTime 5 444114. 816 g 175.26 cm 97.9 [degF] 100 [...] SNOMED-CT Code Diagnosis ICD10 Code Diagnosis Note [id number] Sushma Sanchez MD Main - [address] [phone] 03/19/2024 12:19:53 03/19/2024 17:52:46 Nausea and vomiting [id number] R11.2 Evaluation in the field was performed by my ski production supervisor colleague, as noted above, I provided real-time [...] course of cephalexin 1 wk ago. On ski production supervisor eval VS wnl, exam unremarkab le. POC [...] Claros Member ID Guarantor Name 03/19/2024 1 [facility] - DOS ON OR AFTER 2022 - DUAL ELIGIBLE - SKILLED NURSING OPTIONS AND ONE CARE (MEDICARE REPLACEMENT/ADV ANTAGE - HMO) Galina Doyle [id number] Galina Doyle Notes Date Note Type Note [...] Allergies Reviewed at 03/19/2024 - 10:04 Comments: Vocational Placement Specialist verified the name//address and phone number. Pt [...] s/s and seek emergency treatment if needed Top Dyeing Machine Tender Organization Information for [employer] Business Legal Name: [facility] Address: [address] [place] [address], BENITA Cisneros [address], Tax Services Manager: Vito FITZGERALDIA No.: [id number] Top Dyeing Machine Tender POC Test Results from [facility] (12:25:05) pH: 7.38 pH units pCO2: 49.1 [...] .................... .................... .................... .................... .................... .................... . Top Dyeing Machine Tender Note From Abel Ron: This 58-year-old female [...] .................... .................... .................... .................... .................... .................... . [facility] Consulted: Sushma Sanchez .................... .................... .................... .................... .................... .................... .................... . Disposition: Fulfilled Sushma Sanchez MD [address] [place] [address],[address] [facility], [place], [address], MILEY HATCH 03/19/2024 13:23:04 OBGyn Episode No OBEpisode recorded.
--- OUTSIDE RECORDS SUMMARY | 2024-05-21 09:48 | XMS_ITS | Encounter Summary ---
Author Organization [facility] Address [address] [place] [address] Care Team Providers Care Cisco Network Engineer Name Role Phone Darrel Tony MD Primary Care Provider [phone] [phone] Encounter Details Date Type Department Care Team Description 02/21/2023 Pt. Non Urgent Medical Question Endocrinology - [address] [address] Trish Hyatt PA-C [address] [place] [address] Social History Tobacco Use Types Packs/Day Years [...] Date Type Specialty Care Team Description 10/17/2024 Jacket Changer Report Abstract, Provider documented as of this encounter Visit Diagnoses Not on filedocumented in this encounter Care Teams Cisco Network Engineer Relationship Specialty Start Date End Date Darrel Tony MD [address] [place] [id number] PCP - General Internal Medicine 11/22/21 documented as of this encounter
--- OUTSIDE RECORDS SUMMARY | 2024-05-21 09:48 | XMS_ITS | Encounter Summary ---
Author Organization [facility] Address [address] [place] [address] Care Team Providers Care Water Valve Repairer Name Role Phone Colette Anderson MD Primary Care Provider U Darrel Castro MD Primary Care Provider [phone] [phone] Reason for Referral * Non APRIL (Urgent) - Authorized/Booked Specialty Diagnoses / Procedures Referred By Contact Referred To Contact Obstetrics/Gynecology / Obstetrics & Gynecology Diagnoses Vaginal discharge Procedures REFERRAL TO OBSTETRICS & GYNECOLOGY Colette Anderson MD [address] [place] [address] [address] Referral ID Status Reason Start Date Expiration Date V isits Requested Visits Authorized [id number] Authorized/B ooked 04/13/2018 04/13/2019 1 1 Reason for Visit * Reason Onset Date Comments TEST RESULTS 04/13/2018 Encounter Details Date Type Department Care Team Description 04/13/2018 Telephone Adult Medicine [facility] [address] [place], [place] [phone] Colette Anderson MD TEST RESULTS Social History Tobacco Use Types [...] Telephone Encounter - Melinda Hawkins M.A. - 04/13/2018 4:09 PM EST Pt request urgent referral for Special Police * Telephone Encounter - Colette Jennings MD - 04/13/2018 3:42 PM EST Needs urgent appointment with Special Police as she may have another type of vaginal infection. Leila would have been cleared by diflucan. Therefore have her see her registered client associate. Will refer if she does not have one. * Telephone Encounter - Melinda Hawkins M.A. - 04/13/2018 3:15 PM EST Pt states that she has yeast infection from medication has not subsided and has gotten worse. Pt request another rx for diflucan or any suggestions from Dr. Jennings. Please advise documented in this encounter Plan of Treatment Upcoming Encounters Date Type Specialty Care Team Description 10/17/2024 Healthcare Interpreter Report Abstract, Provider documented as of this encounter Visit Diagnoses Diagnosis Vaginal discharge- Primary Leukorrhea, not specified as infective documented in this encounter Care Teams Water Valve Repairer Relationship Specialty Start Date End Date Colette Anderson MD PCP - General Internal Medicine 02/26/1811/06 Darrel Tony MD [address] [place] [address] PCP - General Internal Medicine 11/22/21 documented as of this encounter
--- OUTSIDE RECORDS SUMMARY | 2024-05-21 09:48 | XMS_ITS | Encounter Summary ---
Author Organization [facility] Address [address] [place] [address] Care Team Providers Care Model Home Sales Greeter Name Role Phone Colette Anderson MD Primary Care Provider U Darrel Castro MD Primary Care Provider +1 -[phone] Encounter Details Date Type Department Care Team Description 11/29/2018 [facility] Medical Records [address] [place] [address] Abstract, Provider Social History Tobacco Use Types [...] Date Type Specialty Care Team Description 10/17/2024 Roustabout Pusher Report Abstract, Provider documented as of this encounter Visit Diagnoses Not on filedocumented in this encounter Care Teams Model Home Sales Greeter Relationship Specialty Start Date End Date Colette Anderson MD PCP - General Internal Medicine 02/26/1811/06 Darrel Tony MD [address] [place] [address] PCP - General Internal Medicine 11/22/21 documented as of this encounter
--- OUTSIDE RECORDS SUMMARY | 2024-05-21 09:48 | XMS_ITS | Encounter Summary ---
Author Organization [facility] Address [address] [place] [address] Care Team Providers Care Naval Gunfire Liaison Officer Name Role Phone Colette Anderson MD Primary Care Provider U Darrel Castro MD Primary Care Provider +1 -[phone] Encounter Details Date Type Department Care Team Description 03/02/2020 Orders Only Medical Records [address] [place] [address] Abstract, Provider Social History Tobacco Use Types [...] AM EST documented as of this encounter Plan of Treatment Upcoming Encounters Date Type Specialty Care Team Description 10/17/2024 Roll Coverer Report Abstract, Provider documented as of this encounter Visit Diagnoses Not on filedocumented in this encounter Care Teams Naval Gunfire Liaison Officer Relationship Specialty Start Date End Date Colette Anderson MD PCP - General Internal Medicine 02/26/1811/06 Darrel Tony MD [address] [place] [address] [id number] PCP - General Internal Medicine 11/22/21 documented as of this encounter
--- OUTSIDE RECORDS SUMMARY | 2024-05-21 09:48 | XMS_ITS | Encounter Summary ---
Author Organization [facility] Address [address] [place] [address] Care Team Providers Care Certified Pharmacy Tech Name Role Phone Colette Anderson MD Primary Care Provider U Darrel Castro MD Primary Care Provider +1 -[phone] Encounter Details Date Type Department Care Team Description 09/01/[address] Clerk Report Medical Records [address] [place] [address] Zeny Howell NP Social History Tobacco Use [...] Date Type Specialty Care Team Description 10/17/[address] Report Abstract, Provider documented as of this encounter Visit Diagnoses Not on filedocumented in this encounter Care Teams Certified Pharmacy Tech Relationship Specialty Start Date End Date Colette Anderson MD PCP - General Internal Medicine 02/26/1811/06 Darrel Tony MD [address] [place] [address] PCP - General Internal Medicine 11/22/21 documented as of this encounter
--- OUTSIDE RECORDS SUMMARY | 2024-05-21 09:48 | XMS_ITS | Encounter Summary ---
Author Organization [facility] Address [address] [place] [address] Care Team Providers Care Editor Greeting Card Name Role Phone Darrel Tony MD Primary Care Provider +1 -[phone] Encounter Details Date Type Department Care Team Description 02/22/2023 Orders Only Medical Records [address] [place] [address] Rufus Bernard MD [address] [place] [address] Social History Tobacco Use Types Packs/Day Years [...] these findings with the referring physician at [facility] gastroenterology clinic. I would like to personally thank you for allowing us to take care of you. Please don't hesitate to call us for any questions or concerns. Regards, Gagandeep Bernard MD Board Certified Gastroenterology and Internal Medicine Transplant Hepatology [facility] documented in this encounter Plan of Treatment Upcoming Encounters Date Type Specialty Care Team Description 10/17/2024 Textile Technical Officer Report Abstract, Provider documented as of this encounter Procedures Procedure Name Priority Date/Time Associated Diagnosis Comments OUTSIDE PATHOLOGY Routine 02/20/2023 documented in this encounter Results * OUTSIDE PATHOLOGY (02/20/2023) H Ronnell Bernard MD OUTSIDE LAB documented in this encounter Visit Diagnoses Not on filedocumented in this encounter Care Teams Editor Greeting Card Relationship Specialty Start Date End Date Darrel Tony MD [address] [place] [address] PCP - General Internal Medicine 11/22/21 documented as of this encounter
--- OUTSIDE RECORDS SUMMARY | 2024-05-21 09:48 | XMS_ITS | Encounter Summary ---
Author Organization [facility] Address [address] [place] [address] Care Team Providers Care Ball Mill Mixer Name Role Phone Manoj Ragland MD Primary Care Provider Un available Darrel Tony MD Primary Care Provider [phone] [phone] [facility], Pcp Primary Care Provider Stefan Regalado Primary Care Provider Unav ailColette Mosqueda MD Primary Care Provider U rosarioailDarrel Dugan MD Primary Care Provider +1 -[phone] Reason for Referral * EXTERNAL (Routine) - Authorized/Booked Specialty Diagnoses / Procedures Referred By Contclaire t Referred To Contact Ophthalmology Procedures REFERRAL TO EXTERNAL OPHTHALMOLOGY Manoj Ragland MD [address] [place] [address] Mariia Ruby, OD [address] [place] [address] Referral ID Status Reason Start Date Expiration Date V isits Requested Visits Authorized SEE NOTE Authorized/B ooked 02/10/2016 05/15/2016 1 1 Reason for Visit * Reason Onset Date Comments Underwater Photographer Feedback 02/09/2016 [facility] e Encounter Details Date Type Department Care Team Description 02/09/2016 Telephone [facility] [address] [place] [address] Manoj Ragland MD Underwater Photographer Feedback ([facility]) Social History Tobacco Use Types Packs/Day Years [...] encounter Miscellaneous Notes * Telephone Encounter - Chloé Jackson - 02/09/2016 4:47 PM EST Please review this patients new referral request. The referral has been pended. Please complete thefollowing: If approved> sign order If denied>please give instructions and route to your practice nursing pool. Practice nurse should inform referrals and the patient if denied. * Telephone Encounter - Sabina Hyatt - 02/09/2016 3:10 PM EST What insurance does the patient have today? hne Effective 11/06/08: BS will not retro referral requests over 90 days. If request is for this please instruct patient to call the 800# on their insurance card to appeal. Do not submit a request. Referrals cannot be processed if the insurance is not accurate. If the insurance listed above in red is NO BILLING INFORMATION FOUND FOR THIS ENCOUTNER The patients correct insurance must be obtained and registered in [facility] or their referral can not be processed. Is this a retro request? NO. If yes for what date of service do you need the retro referral? N/A Who is calling to request this referral? THE PATIENT If the caller is not the patient, what is their name? N/A Ask the patient WHO referred them to this specialty: Patient self referred FIRST and LAST NAME of SPECIALIST PATIENT is seeing:[facility] What specialty is this? OPTHAMOLOGY DIAGNOSIS Patient is being seen for (Not a body part or a procedure): plaquinel screening Have you seen this SPECIALIST for this PROBLEM/DX before?NO If YES, when: Have you checked REVIEW or the APPT DESK to see if this referral has already been done or has visits left? YES Is this visit:Initial Visit Address of Specialist:[address] [place] [address] Phone # of Specialist:[phone] Fax #: (if applicable): Does patient have an appointment scheduled?: NO Date of appointment- (including a retro-request): waiting upon referral approval Is this appointment related to: Not MVA, WC or Surgery related documented in this encounter Plan of Treatment Upcoming Encounters Date Type Specialty Care Team Description 10/17/2024 High Risk Ob Report Abstract, Provider documented as of this encounter Visit Diagnoses Not on filedocumented in this encounter Care Teams Ball Mill Mixer Relationship Specialty Start Date End Date Manoj Ragland MD PCP - General Internal Medicine 09/02/15 Darrel Tony MD [address] [place] [address] PCP - General Internal Medicine 02/18/16 07/05/16 [facility], Pcp [address] [place] [address] PCP - General Internal Medicine 07/06/16 11/13/17 Stefan Johnson [address] [place] [address] PCP - General Internal Medicine 11/14/17 02/25/18 Colette Anderson MD [address] [place] [address] PCP - General Internal Medicine 02/26/18 11/21/21 Darrel Tony MD [address] [place] [address] PCP - General Internal Medicine 11/22/21 documented as of this encounter
--- OUTSIDE RECORDS SUMMARY | 2024-05-21 09:48 | XMS_ITS | Encounter Summary ---
Author Organization [facility] Address [address] [place] [address] Care Team Providers Care Build Manager Name Role Phone Manoj Ragland MD Primary Care Provider Un available Darrel Tony MD Primary Care Provider [phone] [phone] [facility], Pcp Primary Care Provider Stefan Regalado Primary Care Provider Unav Colette Marie MD Primary Care Provider U Darrel Castro MD Primary Care Provider +1 [phone] Reason for Referral * EXTERNAL (Routine) - Authorized/Booked Specialty Diagnoses / Procedures Referred By Cathryn goodson Referred To Contact [facility] / Genetics Diagnoses Family history of breast cancer Procedures REFERRAL TO EXTERNAL ADULT GENETIC COUNSELING-EXTERNAL Juliet Garcia PA-C [address] [place] [address] Thuy Mojica MD [address] [address] Referral ID Status Reason Start Date Expiration Date V isits Requested Visits Authorized SEE NOTE Authorized/B ooked 09/07/2015 12/08/2015 1 1 Reason for Visit * Reason Onset Date Comments REFERRAL 09/07/2015 Encounter Details Date Type Department Care Team Description 09/07/2015 Telephone Genetic & Disease Counseling - [place] [address] [place] [address] Juliet Garcia PA-C REFERRAL Social History Tobacco [...] pended external order for genetic counseling to [facility].Pt has [employer] and cannot make an genetic counseling visits at [facility] due to work and doesn't drive. I am removing this pt's order from the genetic testing schedule. Order expires 09/02/16,[employer]. documented in this encounter Plan of Treatment Upcoming Encounters Date Type Specialty Care Team Description 10/17/2024 School Secretary Report Abstract, Provider documented as of this encounter Visit Diagnoses Diagnosis Family history of breast cancer- Primary Family history of malignant neoplasm of breast documented in this encounter Care Teams Build Manager Relationship Specialty Start Date End Date Manoj Ragland MD PCP - General Internal Medicine 09/02/15 Darrel Tony MD [address] [place] [address] PCP - General Internal Medicine 02/18/16 07/05/16 [facility], Pcp [address] [place] [address] PCP - General Internal Medicine 07/06/16 11/13/17 Stefan Johnson [address] [place] [address] PCP - General Internal Medicine 11/14/17 02/25/18 Colette Anderson MD [address] [place] [address] PCP - General Internal Medicine 02/26/18 11/21/21 Darrel Tony MD [address] [place] [address] PCP - General Internal Medicine 11/22/21 documented as of this encounter
--- OUTSIDE RECORDS SUMMARY | 2024-05-21 09:48 | XMS_ITS | Encounter Summary ---
Author Organization [facility] Address [address] [place] [address] Care Team Providers Care General Assignment Reporter Name Role Phone Darrel Tony MD Primary Care Provider [phone] Reason for Visit * Reason Onset Date Comments lab test 02/16/2023 Encounter Details Date Type Department Care Team Description 02/16/2023 Telephone Endocrinology - [address] [address] Trish Hyatt PA-C [address] [place] [address] lab test Social History Tobacco Use Types Packs/Day Years [...] Type Specialty Care Team Description 10/17/2024 Solar Water Heater Installer Report Abstract, Provider documented as of this encounter Visit Diagnoses Not on filedocumented in this encounter Care Teams General Assignment Reporter Relationship Specialty Start Date End Date Darrel Tony MD [address] [place] [address] PCP - General Internal Medicine 11/22/21 documented as of this encounter
--- OUTSIDE RECORDS SUMMARY | 2024-05-21 09:49 | XMS_ITS | Encounter Summary ---
[facility] Address [address] [place] [address] Care Team Providers Care Accounts Payable Bookkeeper Name Role Phone Darrel Tony MD Primary Care Provider [phone] [phone] Encounter Details Date Type Department Care Team Description 02/14/2022 Inventory Specialist Manager Report Medical Records [address] [place] [address] Home Warner MD Social History Tobacco Use [...] Date Type Specialty Care Team Description 10/17/2024 Inventory Specialist Manager Report Abstract, Provider documented as of this encounter Visit Diagnoses Not on filedocumented in this encounter Care Teams Accounts Payable Bookkeeper Relationship Specialty Start Date End Date Darrel Tony MD [address] [place] [address] PCP - General Internal Medicine 11/22/21 documented as of this encounter
--- OUTSIDE RECORDS SUMMARY | 2024-05-21 09:49 | XMS_ITS | Encounter Summary ---
[facility] Address [address] [place] [address] Care Team Providers Care Naval Aircrewman Avionics Name Role Phone Stefan Johnson Primary Care Provider Unav ailable Colette Anderson MD Primary Care Provider U rosarioailDarrel Dugan MD Primary Care Provider [phone] [phone] Encounter Details Date Type Department Care Team Description 11/17/2017 Release of Information Medical Records [address] [place] [id number] Abstract, Provider Social History Tobacco Use Types [...] Date Type Specialty Care Team Description 10/17/2024 Pairer Inspector Report Abstract, Provider documented as of this encounter Visit Diagnoses Not on filedocumented in this encounter Care Teams Naval Aircrewman Avionics Relationship Specialty Start Date End Date Stefan Johnson PCP - General Internal Medicine 11/14/17 02/25/18 Colette Anderson MD PCP - General Internal Medicine 02/26/1811/06 Darrel Tony MD [address] [place] [address] PCP - General Internal Medicine 11/22/21 documented as of this encounter
--- OUTSIDE RECORDS SUMMARY | 2024-05-21 09:49 | XMS_ITS | Clinical Summary ---
Author Organization [place] [address] [facility] Address [address] [place] [address] Phone Care Team Providers Care Railway Track Worker Name Role Phone Darrel Tony MD Primary Care Provider [phone] [phone] Allergies Active Allergy Reactions Criticality Noted Date Comments Tramadol Rash 11/08/2023 Trazodone Rash 11/08/2023 Acetaminophen Headache 04/08/2024 Per pt Medications glucagon 1 mg/0.2 mL auto-injector Inject 1 [...] units for a high carb meals Active UNKNOWN TO PATIENT Incontinence Supply Disposable [...] FOOD 60 tablet 5 04/23/19 25 Active hydroCHLOROthi azide (HYDRODIURIL) 50 [...] mg 42 tablet 05/09/19 25 2024 Active insulin glargine (LANTUS SoloStar) 100 unit/mL (3 mL) injection pen INJECT 45 UNITS INTO THE SKIN AT BEDTIME OR DIRECTED 45 mL 5 05/16/19 25 Active metFORMIN (GLUCOPHAGE) 1,000 mg tablet Take 1 tablet (1,000 mg total) by mouth 2 (two) times a day with meals. 2024 Discontinued lisinopriL (PRINIVIL,ZEST RIL) 20 mg tablet Take 1 tablet (20 mg total) by mouth 1 (one) time each day. 2024 Discontinued NON FORMULARY Na Sulfate-K Sulfate-Mg Sulf (Suprep Bowel Prep Kit) 17.5-3.13-1.6 GM/177ML Solution---Take 177 mL by mouth See Admin Instructions for 2 doses. - Oral 2024 Discontinued(T herapy completed) insulin glargine (LANTUS SoloStar) 100 unit/mL (3 mL) injection pen INJECT 65 UNITS INTO THE SKIN AT BEDTIME OR DIRECTED 2024 Discontinued(R eorder) hydroCHLOROthi azide (HYDRODIURIL) 50 mg tablet Take 1 tablet (50 mg total) by mouth 1 (one) time each day. 2024 Discontinued(R eorder) oxyCODONE (ROXICODONE) 10 mg immediate release tablet Take 0.5 tablets (5 mg total) by mouth every 8 (eight) hours if needed for severe pain for up to 28 days. Max Daily Amount: 15 mg 42 tablet 04/09/19 25 2024 Discontinued(R eorder) lisinopriL (PRINIVIL,ZEST RIL) 20 mg tablet Take 1 tablet (20 mg total) by mouth 1 (one) time each day. 28 tablet 1 04/23/19 25 2024 Discontinued(T herapy completed) Active Problems Problem Noted Date Diagnosed Date CKD (chronic kidney disease) stage 2, GFR 60-89 ml/min 12/12/2023 Essential hypertension, benign 11/08/2023 Morbid obesity ([facility], [facility] V28) 2023 Discoid lupus 11/08/2023 Esophageal reflux 11/08/2023 Systemic lupus erythematosus ([facility] V[facility], [facility] V28) 11/08/2023 Depression, major 11/08/2023 Fibromyalgia 11/08/2023 Carpal tunnel syndrome, bilateral 11/08/2023 Type 2 diabetes mellitus, wi th long-term current use of insulin ([facility] V24, [facility] V28) 11/08/2023 Adrenal adenoma, left 11/08/2023 Type 2 diabetes mellitus wit h microalbuminuria, with long-term current use of insulin ([facility] V24, [facility] V28) 11/08/2023 Microalbuminuria 11/08/2023 Lupus anticoagulant positive 11/08/2023 Vitamin D deficiency 11/08/2023 Diabetic polyneuropathy asso ciated with type 2 diabetes mellitus ([facility] V[facility], [facility] V28) 11/08/2023 Other chronic pain 11/08/2023 Pancreatitis 11/08/2023 Primary osteoarthritis of right knee 11/08/2023 Encounters Date Type Department Care Team Description 05/17/2024 [facility] [address] [place] [address] Darrel Tony MD Faxed Order ([facility] ) 05/15/2024 11:00 AM EDT Office Visit Endocrinology [address] [address] Trish Hyatt PA Type 2 diabetes mellitus with other specified complication, with long-term current use of insulin ([facility] V24, [facility] V28) (Primary Dx) 05/10/2024 Telephone Internal Medicine - [facility] [phone] Darrel Tony MD DME Request ( [facility] ) 04/30/[address] [phone] Darrel Tony MD Med Refill 04/24/[address] [phone] Darrle Tony MD Forms/questionnaires ([employer]) 04/24/[address] [phone] Darrel Tony MD Forms/questionnaires ([employer]) 04/16/[address] [phone] Darrel Tony MD Request For Order(s) ([facility]) 03/27/[address] [phone] Darrel Tony MD Faxed Order ([facility] ) 03/26/[address] [phone] Darrel Tony MD faxed order 03/19/2024 [facility] [address] [phone] Darrel Tony MD Chest Pain; GI Problem 02/29/[address] [phone] Darrel Tony MD Faxed Order ([facility] ) from Last 3 Months Immunizations Name [...] CHOLECYSTECTOMY 1998 PROCEDURE: LAPAROSCOPY, CHOLECYSTECTOMY SECTION PROCEDURE: [place] DELIVERY ONLY; COMMENT: X4 TUBAL LIGATION PROCEDURE: HISTORICAL TUBAL LIGATION CHOLECYSTECTOMY PROCEDURE: [place] LAPAROSCOPY SURG CHOLECYSTECTOMY Medical History Medical History Date Comments Other pulmonary embolism and infarction 1998 DX:Other pulmonary embolism and infarction 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; COMMENT: scalp, arms; + biopsy 11/2005 Systemic lupus erythematosus ([facility] V24, [facility] V28) 09/01/2006 DX:Systemic lupus erythemato espinoza (HCC); COMMENT: DISCOID LESIONS, SUB-ACUTE SKIN LESIONS ARTHRALGIAS, MILD PROTEINURIA + Anti-DNA, Anti-TOGGLER, Anti-Sm, SS-A Esophageal reflux DX:Esophageal reflux Essential hypertension, benign 05/30/2005 D X:Essential hypertension, benign Obesity DX:Obesity 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 D X: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 Type 2 diabetes mellitus ([facility] V24, [facility] V28) 03/01/2018 DX:Type 2 diabetes mellitus (HCC) Vitamin [...] Sign Reading Time Taken Comments Blood Pressure 122/80 05/15/2024 11:20 AM EDT C Pulse 86 05/15/2024 11:20 AM EDT Temperature 36.1 ??C (97 ??F) 05/15/2024 11:20 AM EDT Respiratory Rate - - Oxygen Saturation 97% 05/15/2024 11:20 AM EDT Inhaled Oxygen Concentration - - Weight 112 kg (247 lb 6.4 oz) 05/15/2024 11:20 A M EDT Height 175.3 cm (5' 9 ) 05/15/2024 11:20 AM EDT Body Mass Index 36.53 05/15/2024 11:20 AM EDT Plan of Treatment Health Maintenance Due Date [...] age to complete this topic Meningococcal B Vaccine Aged Out No l onger eligible based on patient's age to complete [...] RESULTING AGENCY - 05/08/2023 2:56 PM EDT [id number] THINPREP PAP, IMAGED: NEGATIVE FOR SQUAMOUS INTRAEPITHELIAL LESION AND MALIGNANCY . QUINN CARMICHAEL(ASCP) (CASE ELECTRONICALLY SIGNED 05 08 2023) RESULT OF APTIMA HIGH RISK HPV ASSAY: HIGH RISK HPV: ??NEGATIVE (SEROTYPES 16,18,31,33,35,39,45,51,52,56,58,59,66,68) COMPLETED ON 2023-05-08 ADEQUACY: SATISFACTORY ENDOCERVICAL/TRANSFORMATION ZONE COMPONENT ABSENT. SOURCE: THINPREP PAP HPV ANY DX: ??REFLEX 16 AND 18, CERVICAL, IMAGED CLINICAL INFORMATION: HPV ANY DIAGNOSIS. MENOPAUSE, Z12.4 us Jackeline [facility] CYTOLOGY ORDERABLES Jadyn roseann Result HISTORICAL [...] Most Recently Relevant to Health Maintenance Insurance [employer] MEDICARE Member Subscriber Plan / Payer (Ef fective 2023-Present) Name:Stefan Doylekiki Relation to Subscriber:Self Name:Vivek Stefankiki Payer ID:[id number] Group ID:[id number] Type:Not on file Address: [place] [address] [address] [address] Care Teams Railway Track Worker Relationship Specialty Start Date End Date Darrel Tony MD [address] [place] [address] PCP - General Internal Medicine 11/22/21
--- OUTSIDE RECORDS SUMMARY | 2024-05-21 09:49 | XMS_ITS | Encounter Summary ---
[facility] Address [address] [place] [address] Care Team Providers Care Heat Treat Supervisor Name Role Phone Colette Anderson MD Primary Care Provider U Darrel Castro MD Primary Care Provider [phone] [phone] Reason for Visit * Reason Onset Date Comments medication problems 04/21/2021 Encounter Details Date Type Department Care Team Description 04/21/2021 Telephone Adult Medicine - [facility] [address] [place] [address] Colette Anderson MD medication problems Social History [...] - 04/22/2021 11:26 AM EDT Changed to Invidiolog * Telephone Encounter - Mary Avitia - [...] Date Type Specialty Care Team Description 10/17/2024 Sifter Operator Report Abstract, Provider documented as of this encounter Visit Diagnoses Not on filedocumented in this encounter Care Teams Heat Treat Supervisor Relationship Specialty Start Date End Date Colette Anderson MD PCP - General Internal Medicine 02/26/1811/06 Darrel Tony MD [address] [place] [address] PCP - General Internal Medicine 11/22/21 documented as of this encounter
--- OUTSIDE RECORDS SUMMARY | 2024-05-21 09:49 | XMS_ITS | Encounter Summary ---
Author Organization [facility] Address [address] [place] [address] Care Team Providers Care Sales And Service Consultant Name Role Phone Colette Anderson MD Primary Care Provider U Darrel Castro MD Primary Care Provider [phone] [phone] Reason for Visit * Reason Comments E-prescribe Rx Request Encounter Details Date Type Department Care Team Description 11/02/2021 Refill Endocrinology - [facility] [address] [place] [address] Trish Hyatt PA-C [address] [place] [address] E-prescribe Rx Request Social History Tobacco Use [...] N/A Patients current insurance carrier is: Payor: [facility] FFS / Plan[facility] / Product Type: MEDICAID RISK documented in this encounter Plan of Treatment Upcoming Encounters Date Type Specialty Care Team Description 10/17/2024 Fuse Coiler Report Abstract, Provider documented as of this encounter Visit Diagnoses Not on filedocumented in this encounter Care Teams Sales And Service Consultant Relationship Specialty Start Date End Date Colette Anderson MD PCP - General Internal Medicine 02/26/1811/06 Darrel Tony MD [address] [place] [address] PCP - General Internal Medicine 11/22/21 documented as of this encounter
--- OUTSIDE RECORDS SUMMARY | 2024-05-21 09:49 | XMS_ITS | Encounter Summary ---
Author Organization [facility] Address [address] [place] [address] Care Team Providers Care Security Operations Center Analyst Name Role Phone Darrel Tony MD Primary Care Provider +1 [phone] Reason for Visit * Reason Onset Date Comments refill request 05/12/2022 Encounter Details Date Type Department Care Team Description 05/12/2022 Refill Adult Medicine [address] [address] Darrel Tony MD [address] [place] [address] refill request Social History Tobacco Use Types [...] 10 Mg Tablet 30 30 Je Cam [id number] [facility] (18[facility] 0/0 0.50 [place] 2022 2022 1 Gabapentin 600 Mg Tablet 180 30 Ja Iraj [id number] [facility] (2408) 0/3 4.02 LME Medicaid [place] 04/13/2022 04/13/2022 1 Oxycodone Hcl (Ir) 5 Mg Tablet 84 28 Ka Gun [id number] [facility] (1855) 0/0 22.50 MME [place] 03/23/2022 09/13/2021 1 Gabapentin 600 Mg Tablet 180 30 Ja Iraj [id number] [facility] (7608) 4/4 4.02 L[place] 03/16/2022 03/16/2022 1 Oxycodone Hcl (Ir) 5 Mg Tablet 84 28 Te Sva [id number] [facility] (7378) 0/0 22.50 [place] 03/07/2022 03/07/2022 1 Zolpidem Tartrate 10 Mg Tablet 30 30 Je Cam [id number] [facility] (1855) 0/1 0.50 LMEM[place] 02/20/2022 09/13/2021 1 Gabapentin 600 Mg Tablet 180 30 Ja Iraj [id number] [facility] (7608) 3/4 4.02 L[place] 02/10/2022 02/10/2022 1 Oxycodone Hcl (Ir) 5 Mg Tablet 84 28 Ka Gun [id number] [facility] (5068) 0/0 22.50 [place] 01/19/2022 09/13/2021 1 Gabapentin 600 Mg Tablet 180 30 Ja Iraj [id number] [facility] (9308) 2/4 4.02 [place] 01/12/2022 01/12/2022 1 Oxycodone Hcl (Ir) 5 Mg Tablet 84 28 Ka Gun [id number] [facility] (7608) 0/0 22.50 [place] 12/13/2021 12/13/2021 1 Oxycodone Hcl (Ir) 5 Mg Tablet 84 28 Ka Gun [id number] [facility] (7608) 0/0 22.50 [place] 11/12/2021 11/12/2021 1 Oxycodone Hcl (Ir) 5 Mg Tablet 84 28 Te Sva [id number] [facility] (7608) 0/0 22.50 [place] 11/02/2021 08/11/2021 1 Zolpidem Tartrate 5 Mg Tablet 30 30 Je Cam [id number] [facility] (1855) 2/2 0.25 [place] 10/16/2021 09/13/2021 1 Gabapentin 600 Mg Tablet 180 30 Ja Iraj [id number] [facility] (7608) / 4.02 LME [place] 10/14/2021 10/14/2021 1 Oxycodone Hcl (Ir) 5 Mg Tablet 84 28 [place] documented in this encounter Plan of Treatment Upcoming Encounters Date Type Specialty Care Team Description 10/17/2024 Director External Communications Report Abstract, Provider documented as of this encounter Visit Diagnoses Diagnosis Fibromyalgia Mylagia and myositis, unspecified documented in this encounter Care Teams Security Operations Center Analyst Relationship Specialty Start Date End Date Darrel Tony MD [address] [place] [address] PCP - General Internal Medicine 11/22/21 documented as of this encounter
--- OUTSIDE RECORDS SUMMARY | 2024-05-21 09:49 | XMS_ITS | Encounter Summary ---
Author Organization [facility] Address [address] [place] [address] Care Team Providers Care Social Services Manager Name Role Phone Colette Anderson MD Primary Care Provider U Darrel Castro MD Primary Care Provider +1 -[phone] Reason for Referral * Non APRIL (Priority) - Unable to reach/declined Specialty Diagnoses / Procedures Referred By Contac t Referred To Contact Nephrology Procedures REFERRAL TO NEPHROLOGY Colette Anderson MD [address] [place] [address] [address] [address] Referral ID Status Reason Start Date Expiration Date V isits Requested Visits Authorized [id number] 02/18 LTR Unable to reach/decli cameron 01/29/2019 01/29/2020 1 1 Encounter Details Date Type Department Care Team Description 01/29/2019 Orders Only Adult Medicine B - [address] [address] Colette Anderson MD Type 2 diabetes mellitus [...] Date Type Specialty Care Team Description 10/17/2024 Can Filler Report Abstract, Provider documented as of this [...] Primary documented in this encounter Care Teams Social Services Manager Relationship Specialty Start Date End Date Colette Anderson MD PCP - General Internal Medicine 02/26/1811/06 Darrel Tony MD [address] [place] [address] PCP - General Internal Medicine 11/22/21 documented as of this encounter
--- OUTSIDE RECORDS SUMMARY | 2024-05-21 09:49 | XMS_ITS | Encounter Summary ---
Author Organization [facility] Address [address] [place] [address] Care Team Providers Care Eating Disorder Specialist Name Role Phone Darrel Tony MD Primary Care Provider +1 -[phone] Reason for Visit * Reason Onset Date Comments Faxed Order 12/05/2023 [facility] Encounter Details Date Type Department Care Team Description 12/05/2023 Telephone Medicine/Pediatrics - [address] [address] Darrel Tony MD [address] [place] [address] Faxed Order ([facility] ) Social History Tobacco Use Types Packs/Day [...] 10:40 AM EDT Faxed order received by [facility]. Order placed in Darrel Cecily [email or web address] for signature. Please sign and fax back to fax [phone]. documented in this encounter Plan of Treatment Upcoming Encounters Date Type Specialty Care Team Description 10/17/2024 Retail Service Technician Report Abstract, Provider documented as of this encounter Visit Diagnoses Not on filedocumented in this encounter Care Teams Eating Disorder Specialist Relationship Specialty Start Date End Date Darrel Tony MD [address] [place] [address] PCP - General Internal Medicine 11/22/21 documented as of this encounter
--- OUTSIDE RECORDS SUMMARY | 2024-05-21 09:49 | XMS_ITS | Encounter Summary ---
Author Organization [facility] Address [address] [place] [address] Care Team Providers Care Electrical Wiring Lineman Name Role Phone Colette Anderson MD Primary Care Provider U Darrel Castro MD Primary Care Provider +1 -[phone] Reason for Referral * EXTERNAL (Routine) - Authorized/Booked Specialty Diagnoses / Procedures Referred By Contac t Referred To Contact Rheumatology Procedures REFERRAL TO RHEUMATOLOGY Colette Anderson MD [address] [place] [address] Home Warner MD [address] [place] [address] Referral ID Status Reason Start Date Expiration Date V isits Requested Visits Authorized [id number] Authorized/B ooked 05/03/2021 10/15/2021 1 1 Encounter Details Date Type Department Care Team Description 05/03/2021 Orders Only Adult Medicine B - [address] [address] Colette Anderson MD Social History Tobacco Use [...] Date Type Specialty Care Team Description 10/17/2024 Patient Support Specialist Report Abstract, Provider documented as of this encounter Visit Diagnoses Not on filedocumented in this encounter Care Teams Electrical Wiring Lineman Relationship Specialty Start Date End Date Colette Anderson MD PCP - General Internal Medicine 02/26/1811/06 Darrel Tony MD [address] [place] [address] PCP - General Internal Medicine 11/22/21 documented as of this encounter
--- OUTSIDE RECORDS SUMMARY | 2024-05-21 09:49 | XMS_ITS | Encounter Summary ---
Author Organization [facility] Address [address] [place] [address] Care Team Providers Care Inspector Final Assembly Mechanical Name Role Phone Darrel Tony MD Primary Care Provider [phone] [phone] Reason for Visit * Reason Onset Date Comments Prior Authorization 03/22/2023 [employer] Encounter Details Date Type Department Care Team Description 03/22/2023 Telephone Endocrinology - [address] [address] Trish Hyatt PA-C [address] [place] [address] Prior Authorization ([employer]) Social History Tobacco Use Types Packs/Day Years [...] Telephone Encounter - Vivian Centeno M.A. - 03/29/2023 12:29 PM EST PA approval received from [facility] Auth# [id number] Valid 03.29.23 - 03.28.24 Patient notified * Telephone Encounter - Vivian Centeno M.A. - 03/23/2023 9:24 AM EST Faxed PA request to [facility] with all documentation documented in this encounter Plan of Treatment Upcoming Encounters Date Type Specialty Care Team Description 10/17/2024 Contract Post Office Clerk Report Abstract, Provider documented as of this encounter Visit Diagnoses Not on filedocumented in this encounter Care Teams Inspector Final Assembly Mechanical Relationship Specialty Start Date End Date Darrel Tony MD [address] [place] [address] PCP - General Internal Medicine 11/22/21 documented as of this encounter
--- OUTSIDE RECORDS SUMMARY | 2024-05-21 09:49 | XMS_ITS | Encounter Summary ---
Author Organization [facility] Address [address] [place] [address] Care Team Providers Care Flag Football Coach Name Role Phone Colette Anderson MD Primary Care Provider U Darrel Castro MD Primary Care Provider [phone] -[phone] Reason for Visit * Reason Onset Date Comments Faxed Refill 11/14/2019 Encounter Details Date Type Department Care Team Description 11/14/2019 Refill Adult Medicine B - [place] [address] [place] [address] Colette Anderson MD Faxed Refill Social History [...] RAMONTNA / Plan: POS $20/30 JULIANNE ADAME [id number] THNE TRADITNAL / Product Type: POS [id number] documented in this encounter Plan of Treatment Upcoming Encounters Date Type Specialty Care Team Description 10/17/2024 Landscape Contractor Report Abstract, Provider documented as of this encounter Visit Diagnoses Not on filedocumented in this encounter Care Teams Flag Football Coach Relationship Specialty Start Date End Date Colette Anderson MD PCP - General Internal Medicine 02/26/1811/06 Darrel Tony MD [address] [place] [address] PCP - General Internal Medicine 11/22/21 documented as of this encounter
--- OUTSIDE RECORDS SUMMARY | 2024-05-21 09:49 | XMS_ITS | Encounter Summary ---
Author Organization [facility] Address [address] [place] [address] Care Team Providers Care Lithographic Press Operator Apprentice Name Role Phone Colette Anderson MD Primary Care Provider U Darrel Castro MD Primary Care Provider +1 -[phone] Encounter Details Date Type Department Care Team Description 11/27/2019 Pt. Non Urgent Medical Question Rheumatology - [address] [address] Home Alston MD Social History Tobacco Use [...] NOT THIS TIME. I DON'T HAVE ANYMORE ENVIRONMENTAL QUALITY ANALYST TIME SO I HAVE BEEN COMING INTO WORK STRUGGLING TO MAKE IT THROUGH THE DAY, LITERAL PLEASE HELP ME GALINA PENNY documented in this encounter Plan of Treatment Upcoming Encounters Date Type Specialty Care Team Description 10/17/2024 Sheet Metal Journeyman Report Abstract, Provider documented as of this encounter Visit Diagnoses Not on filedocumented in this encounter Care Teams Lithographic Press Operator Apprentice Relationship Specialty Start Date End Date Colette Anderson MD PCP - General Internal Medicine 02/26/1811/06 Darrel Tony MD [address] [place] [address] PCP - General Internal Medicine 11/22/21 documented as of this encounter
--- OUTSIDE RECORDS SUMMARY | 2024-05-21 09:49 | XMS_ITS | Encounter Summary ---
Author Organization [facility] Address [address] [place] [address] Care Team Providers Care Metal Riveter Name Role Phone Darrel Tony MD Primary Care Provider [phone] [phone] Reason for Visit * Reason Onset Date Comments Request For Order(s) 04/16/2024 [facility] Encounter Details Date Type Department Care Team (Late st Contact Info) Description 04/16/2024 [facility] [address] [place] [phone] Darrel Tony MD [address] [place] [address] Request For Order(s) ([facility]) Social History Tobacco Use Types Packs/Day [...] MD bin for signing, please fax to [phone]. documented in this encounter Plan of Treatment Not on file documented as of this encounter Visit Diagnoses Not on filedocumented in this encounter Care Teams Metal Riveter Relationship Specialty Start Date End Date Darrel Tony MD [address] [place] [address] PCP - General Internal Medicine 11/22/21 documented as of this encounter
--- OUTSIDE RECORDS SUMMARY | 2024-05-21 09:49 | XMS_ITS | Clinical Summary ---
Author Organization [facility] Address [address] [address] Care Team Providers Care Environmental Health Sanitarian Name Role Phone Unavailable Primary Care Provider [...] (1 of 3 - 19+ 3-dose series) 04/14 Colorectal Cancer Screening: Annual FOBT 04/14/2016 Colorectal Cancer Screening: Colonoscopy 04/14/2016 Colorectal Cancer Screening: Sigmoidoscopy 04/14/2016 Pneumococcal Vaccine: 50+ Years (1 of 1 - PCV) 018 Influenza Vaccine (Season Ended) 2024
--- OUTSIDE RECORDS SUMMARY | 2024-05-21 09:49 | XMS_ITS | Encounter Summary ---
Author Organization [facility] Address [address] [place] [address] Care Team Providers Care Talent Consultant Name Role Phone Colette Anderson MD Primary Care Provider U Darrel Castro MD Primary Care Provider [phone] [phone] Encounter Details Date Type Department Care Team Description 02/09/2021 Pt. Non Urgent Medical Question Adult Medicine B - [address] [address] Trish Hyatt PA-C [address] [place] [address] Social History Tobacco Use Types Packs/Day Years [...] Date Type Specialty Care Team Description 10/17/2024 Contractor Broomcorn Threshing Report Abstract, Provider documented as of this encounter Visit Diagnoses Not on filedocumented in this encounter Care Teams Talent Consultant Relationship Specialty Start Date End Date Colette Anderson MD PCP - General Internal Medicine 02/26/1811/06 Darrel Tony MD [address] [place] [address] PCP - General Internal Medicine 11/22/21 documented as of this encounter
--- OUTSIDE RECORDS SUMMARY | 2024-05-21 09:49 | XMS_ITS | Encounter Summary ---
Author Organization [facility] Address [address] [place] [address] Care Team Providers Care Green Energy Marketing Analyst Name Role Phone Darrel Tony MD Primary Care Provider [phone] [phone] Encounter Details Date Type Department Care Team Description 06/21/2023 Pt. Non Urgent Medical Question [facility] [address] [facility] [address] [place] [phone] Demond De Dios MD [address] [facility] [address] [place] [address] Social History Tobacco Use Types Packs/Day Years [...] Date Type Specialty Care Team Description 10/17/2024 Public Interviewer Report Abstract, Provider documented as of this encounter Visit Diagnoses Not on filedocumented in this encounter Care Teams Green Energy Marketing Analyst Relationship Specialty Start Date End Date Darrel Tony MD [address] [place] [address] PCP - General Internal Medicine 11/22/21 documented as of this encounter
--- OUTSIDE RECORDS SUMMARY | 2024-05-21 09:49 | XMS_ITS | Encounter Summary ---
Author Organization [facility] Address [address] [place] [address] Care Team Providers Care Tightener Name Role Phone Colette Anderson MD Primary Care Provider U Darrel Castro MD Primary Care Provider +1 -[phone] Encounter Details Date Type Department Care Team Description 10/09/2019 Orders Only Medical Records [address] [place] [address] Wagner Herrera MD [address] [place] [address] Social History Tobacco Use Types Packs/Day Years [...] Date Type Specialty Care Team Description 10/17/2024 Business Development Executive Report Abstract, Provider documented as of this encounter Procedures Procedure Name Priority Date/Time Associated Diagnosis Comments OUTSIDE IMAGING Routine 10/08/2019 documented in this encounter Results * OUTSIDE IMAGING (10/08/2019) Wagner Herrera MD RADIOLOGY documented in this encounter Visit Diagnoses Not on filedocumented in this encounter Care Teams Tightener Relationship Specialty Start Date End Date Colette Anderson MD PCP - General Internal Medicine 02/26/1811/06 Darrel Tony MD [address] [place] [address] PCP - General Internal Medicine 11/22/21 documented as of this encounter
--- OUTSIDE RECORDS SUMMARY | 2024-05-21 09:49 | XMS_ITS | Encounter Summary ---
Author Organization [facility] Address [address] [place] [address] Care Team Providers Care Boilermaker Assembly And Erection Name Role Phone Colette Anderson MD Primary Care Provider U Darrel Castro MD Primary Care Provider +1 -[phone] Encounter Details Date Type Department Care Team Description 06/03/2021 Pt. Non Urgent Medical Question Endocrinology - [place] [address] [place] [address] Trish Hyatt PA-C [address] [place] [address] Social History Tobacco Use Types Packs/Day Years [...] suspected to have Coronavirus/COVID-19? No / Unsure 06/04/2021 2:15 PM EDT documented as of this encounter Miscellaneous Notes * Telephone Encounter - Vivian Centeno M.A. - 06/03/2021 8:19 AM EDTFrom: Galina Doyle To: Alireza Hyatt Sent: 06/03/2021 8:04 AM EDT Subject: Appointment I forgot you are in [place] now Trish, i don't have a ride out there this morning. My daughter is in school in [facility]. I know you wanted to check my meter and i have been having my sugar drop to the 60's. She's off on Mondays and Fridays from school, any possibilities that you can fit me in tomorrow or Monday? documented in this encounter Plan of Treatment Upcoming Encounters Date Type Specialty Care Team Description 10/17/2024 Plaster Block Layer Report Abstract, Provider documented as of this encounter Visit Diagnoses Not on filedocumented in this encounter Care Teams Boilermaker Assembly And Erection Relationship Specialty Start Date End Date Colette Anderosn MD PCP - General Internal Medicine 02/26/1811/06 Darrel Tony MD [address] [place] [address] PCP - General Internal Medicine 11/22/21 documented as of this encounter
--- OUTSIDE RECORDS SUMMARY | 2024-05-21 09:49 | XMS_ITS | Encounter Summary ---
Author Organization [facility] Address [address] [place] [address] Care Team Providers Care Children'S Lunchroom Supervisor Name Role Phone Darrel Tony MD Primary Care Provider [phone] [phone] Encounter Details Date Type Department Care Team Description 10/12/2023 Orders Only Medical Records [address] [place] [address] Rufus Bernard MD [address] [place] [address] Social History Tobacco Use Types Packs/Day Years [...] Date Type Specialty Care Team Description 10/17/2024 Parker Report Abstract, Provider documented as of this encounter Procedures Procedure Name Priority Date/Time Associated Diagnosis Comments OUTSIDE LAB Routine 10/12/2023 documented in this encounter Results * OUTSIDE LAB (10/12/2023) Rufus Bernard MD LAB documented in this encounter Visit Diagnoses Not on filedocumented in this encounter Care Teams Children'S Lunchroom Supervisor Relationship Specialty Start Date End Date Darrel Tony MD [address] [place] [id number] PCP - General Internal Medicine 11/22/21 documented as of this encounter
--- OUTSIDE RECORDS SUMMARY | 2024-05-21 09:49 | XMS_ITS | Encounter Summary ---
Author Organization [facility] Address [address] [place] [address] Care Team Providers Care Squeegee Operator Name Role Phone Colette Anderson MD Primary Care Provider U Darrel Castro MD Primary Care Provider +1 -[phone] Encounter Details Date Type Department Care Team Description 02/23/2021 Orders Only Endocrinology - [place] [address] [place] [address] Trish Hyatt PA-C [address] [place] [address] Type 2 diabetes mellitus with microalbuminuria, with [...] Date Type Specialty Care Team Description 10/17/2024 Photonic Laboratory Technician Report Abstract, Provider documented as of this encounter Visit Diagnoses Diagnosis Type 2 diabetes mellitus with microalbuminuria, with long-term current use of insulin (HCC) documented in this encounter Care Teams Squeegee Operator Relationship Specialty Start Date End Date Colette Anderson MD PCP - General Internal Medicine 02/26/1811/06 Darrel Tony MD [address] [place] [address] PCP - General Internal Medicine 11/22/21 documented as of this encounter
--- OUTSIDE RECORDS SUMMARY | 2024-05-21 09:49 | XMS_ITS | Encounter Summary ---
Author Organization [facility] Address [address] [place] [address] Care Team Providers Care Recreational Therapist Name Role Phone Colette Anderson MD Primary Care Provider U Darrel Castro MD Primary Care Provider +1 -[phone] Reason for Referral * Non APRIL (Urgent) - Authorized/Booked Specialty Diagnoses / Procedures Referred By Contact Referred To Contact Oncology/Hematology Procedures REFERRAL TO ONCOLOGY/HEMATOLOGY (IN NETWORK) Colette Anderson MD [address] [place] [address] Diego Javed MD [address] [place] [address] Referral ID Status Reason Start Date Expiration Date V isits Requested Visits Authorized [id number] Authorized/B ooked 03/13/2019 03/12/2020 12 12 Encounter Details Date Type Department Care Team Description 03/13/2019 Orders Only Adult Medicine B - [address] [address] Colette Anderson MD Social History Tobacco Use [...] Date Type Specialty Care Team Description 10/17/2024 Photovoltaic Power Systems Engineer Report Abstract, Provider documented as of this encounter Visit Diagnoses Not on filedocumented in this encounter Care Teams Recreational Therapist Relationship Specialty Start Date End Date Colette Anderson MD PCP - General Internal Medicine 02/26/1811/06 Darrel Tony MD [address] [place] [address] PCP - General Internal Medicine 11/22/21 documented as of this encounter
--- OUTSIDE RECORDS SUMMARY | 2024-05-21 09:49 | XMS_ITS | Encounter Summary ---
Author Organization [facility] Address [address] [place] [address] Care Team Providers Care Senior Underwriter Name Role Phone Darrel Tony MD Primary Care Provider +1 -[phone] Reason for Visit * Reason Onset Date Comments Medication 09/28/2023 Encounter Details Date Type Department Care Team Description 09/28/2023 Refill Gastroenterology [address] [place] [phone] Rufus Bernard MD [address] [place] [address] Medication Social History Tobacco Use Types Packs/Day [...] Type Specialty Care Team Description 10/17/2024 Mat Repairer Report Abstract, Provider documented as of this encounter Visit Diagnoses Not on filedocumented in this encounter Care Teams Senior Underwriter Relationship Specialty Start Date End Date Darrel Tony MD [address] [place] [address] PCP - General Internal Medicine 11/22/21 documented as of this encounter
--- OUTSIDE RECORDS SUMMARY | 2024-05-21 09:49 | XMS_ITS | Encounter Summary ---
Author Organization [facility] Address [address] [place] [address] Care Team Providers Care Referral Manager Name Role Phone Darrel Tony MD Primary Care Provider +1 [phone] Encounter Details Date Type Department Care Team Description 02/02/2022 Telephone Pulmonology [facility] [address] [facility] [address] [place] [address] Darrel Tony MD [address] [place] [address] Social History Tobacco Use Types Packs/Day Years [...] Date Type Specialty Care Team Description 10/17/2024 Cad Technician Report Abstract, Provider documented as of this encounter Visit Diagnoses Not on filedocumented in this encounter Care Teams Referral Manager Relationship Specialty Start Date End Date Darrel Tony MD [address] [place] [id number] PCP - General Internal Medicine 11/22/21 documented as of this encounter
--- OUTSIDE RECORDS SUMMARY | 2024-05-21 09:49 | XMS_ITS | Encounter Summary ---
Author Organization [facility] Address [address] [place] [address] Care Team Providers Care Newspaper Columnist Name Role Phone Darrel Tony MD Primary Care Provider +1 [phone] Encounter Details Date Type Department Care Team Description 09/07/2023 Refill Adult Medicine [facility] [address] [place] [address] Darrel Tony MD [address] [place] [address] Social History Tobacco Use Types Packs/Day Years [...] Telephone Encounter - Sherrie Morrison MA. - 09/08/2023 8:39 AM EDT Faxed to pharmacy * Telephone Encounter - Mirtha Gilliland M.A. - 09/07/2023 1:52 PM EDT Rivka 06/13/23 pended 09/26/23 Controlled substance contract and last issue date of medication reviewed. Patient is due for medication. Lab Results Component Value Date URBENZO NONE DETECTED 07/11/2023 UROPIATES POSITIVE 07/11/2023 UROXYCODONE POSITIVE 07/11/2023 URBARBITUATE NONE DETECTED 07/11/2023 PAINAMPHETAM NONE DETECTED 07/11/2023 PAINCOCAINE NONE DETECTED 07/11/2023 PAINCANNABIN NONE DETECTED 07/11/2023 Filled Written Sold ID Drug QTY Days Prescriber RX # Dispenser Refill Daily Dose* Pymt Type AIRDROP SYSTEMS TECHNICIAN 08/13/2023 08/04/2023 08/13/2023 1 Zolpidem Tartrate 10 Mg Tablet 28 28 Sh [facility] [id number] [facility] (1855[facility] 0/0 0.50 LME [place] 08/08/2023 08/08/2023 08/09/2023 1 Oxycodone Hcl (Ir) 10 Mg Tab 42 28 Ka Gun [id number] [facility] (4352) 0/0 22.50 MME [place] 08/04/2023 07/06/2023 08/13/2023 1 Gabapentin 600 Mg Tablet 168 28 Pa Sivakumar [id number] [facility] (1855) 1/3 4.02 LME [place] 07/16/2023 06/29/2023 07/17/2023 1 Zolpidem Tartrate 10 Mg Tablet 30 30 Sh [facility] [id number] [facility] (1855) 0/0 0.50 LME [place] 07/10/2023 07/10/2023 07/10/2023 1 Oxycodone Hcl (Ir) 10 Mg Tab 42 28 Ka Gun [id number] [facility] (4352) 0/0 22.50 MME [place] 07/06/2023 07/06/2023 07/17/2023 1 Gabapentin 600 Mg Tablet 168 28 Pa Sivakumar [id number] [facility] (1855) 0/3 4.02 LME [place] 06/15/2023 05/16/2023 06/19/2023 1 Zolpidem Tartrate 10 Mg Tablet 30 30 Sh [facility] [id number] [facility] (1855) 0/0 0.50 LME [place] 06/09/2023 06/09/2023 06/10/2023 1 Oxycodone Hcl (Ir) 10 Mg Tab 42 28 Al Jar [id number] [facility] (4352) 0/0 22.50 MME [place] 06/06/2023 06/06/2023 06/19/2023 1 Gabapentin 600 Mg Tablet 168 28 Ja Iraj [id number] [facility] (1855) 0/0 4.02 LME [place] 05/13/2023 01/13/2023 05/19/2023 1 Gabapentin 600 Mg Tablet 168 28 Ja Iraj [id number] [facility] (1855) 4/4 4.02 LME [place] 05/13/2023 04/05/2023 05/19/2023 1 Zolpidem Tartrate 10 Mg Tablet 30 30 Sh [facility] [id number] [facility] (1855) 0/0 0.50 LME [place] 05/12/2023 05/12/2023 05/12/2023 1 Oxycodone Hcl (Ir) 10 Mg Tab 42 28 Ka Gun [id number] [facility] (4352) 0/0 22.50 MME [place] 04/19/2023 01/13/2023 04/21/2023 1 Gabapentin 600 Mg Tablet 168 28 Ja Iraj [id number] [facility] (1855) 3/4 4.02 LME [place] 04/13/2023 04/13/2023 04/14/2023 1 Oxycodone Hcl (Ir) 10 Mg Tab 42 28 Ka Gun [id number] [facility] (4352) 0/0 22.50 MME [place] 03/27/2023 03/20/2023 04/02/2023 1 Zolpidem Tartrate 10 Mg Tablet 30 30 Cam [id number] [facility] (1855) 0/0 0.50 LME [place] documented in this encounter Plan of Treatment Upcoming Encounters Date Type Specialty Care Team Description 10/17/2024 Community Relations Assistant Report Abstract, Provider documented as of this encounter Visit Diagnoses Diagnosis Fibromyalgia Mylagia and myositis, unspecified Other chronic pain documented in this encounter Care Teams Newspaper Columnist Relationship Specialty Start Date End Date Darrel Tony MD [address] [place] [address] PCP - General Internal Medicine 11/22/21 documented as of this encounter
--- OUTSIDE RECORDS SUMMARY | 2024-05-21 09:49 | XMS_ITS | Encounter Summary ---
Author Organization [facility] Address [address] [place] [address] Care Team Providers Care Early Childhood Specialist Name Role Phone Colette Anderson MD Primary Care Provider U Darrel Castro MD Primary Care Provider +1 [phone] Encounter Details Date Type Department Care Team Description 03/14/2021 Pt. Non Urgent Medical Question Endocrinology - [place] [address] [place] [address] Trish Hyatt PA-C [address] [place] [address] Social History Tobacco Use Types Packs/Day Years [...] Date Type Specialty Care Team Description 10/17/2024 Cemetery Keeper Report Abstract, Provider documented as of this encounter Visit Diagnoses Not on filedocumented in this encounter Care Teams Early Childhood Specialist Relationship Specialty Start Date End Date Colette Anderson MD PCP - General Internal Medicine 02/26/1811/06 Darrel Tony MD [address] [place] [address] PCP - General Internal Medicine 11/22/21 documented as of this encounter
--- OUTSIDE RECORDS SUMMARY | 2024-05-21 09:49 | XMS_ITS | Encounter Summary ---
Author Organization [facility] Address [address] [place] [address] Care Team Providers Care Child Welfare Assistant Name Role Phone Colette Anderson MD Primary Care Provider U Darrel Castro MD Primary Care Provider +1 [phone] Encounter Details Date Type Department Care Team Description 10/23/2019 Pt. Non Urgent Medical Question Adult Medicine - [address] [address] Colette Anderson MD Social History Tobacco Use [...] Date Type Specialty Care Team Description 10/17/2024 Surgical Brace Maker Report Abstract, Provider documented as of this encounter Visit Diagnoses Not on filedocumented in this encounter Care Teams Child Welfare Assistant Relationship Specialty Start Date End Date Colette Anderson MD PCP - General Internal Medicine 02/26/1811/06 Darrel Tony MD [address] [place] [address] PCP - General Internal Medicine 11/22/21 documented as of this encounter
--- OUTSIDE RECORDS SUMMARY | 2024-05-21 09:49 | XMS_ITS | Encounter Summary ---
Author Organization [facility] Address [address] [place] [address] Care Team Providers Care Analytical Chemist Name Role Phone Darrel Tony MD Primary Care Provider +1 [phone] Encounter Details Date Type Department Care Team Description 07/05/2023 Orders Only Medical Records [address] [place], [place] [id number] [place] [address] Eye [facility] Social History Tobacco Use Types Packs/Day Years [...] Date Type Specialty Care Team Description 10/17/2024 Dam Worker Report Abstract, Provider documented as of this encounter Procedures Procedure Name Priority Date/Time Associated Diagnosis Comments OUTSIDE EYE EXAM Routine 06/26/2023 documented in this encounter Results * OUTSIDE EYE EXAM (06/26/2023) [facility] PROCEDURES documented in this encounter Visit Diagnoses Not on filedocumented in this encounter Care Teams Analytical Chemist Relationship Specialty Start Date End Date Darrel Tony MD [address] [place] [address] PCP - General Internal Medicine 11/22/21 documented as of this encounter
--- OUTSIDE RECORDS SUMMARY | 2024-05-21 09:49 | XMS_ITS | Encounter Summary ---
Author Organization [facility] Address [address] [place] [address] Care Team Providers Care Processing Technician Name Role Phone Darrel Tony MD Primary Care Provider [phone] [phone] Reason for Visit * Reason Onset Date Comments Faxed Refill 09/04/2023 Encounter Details Date Type Department Care Team Description 09/04/2023 Refill Adult Medicine [address] [address] Darrel Tony MD [address] [place] [address] Faxed Refill Social History Tobacco Use Types [...] ?? Patients current insurance carrier is: Payor: [employer] MCR / Plan: [facility] / Product Type: HMO [id number] ? documented in this encounter Plan of Treatment Upcoming Encounters Date Type Specialty Care Team Description 10/17/2024 Gas Turbine Powerplant Mechanic Report Abstract, Provider documented as of this encounter Visit Diagnoses Diagnosis Vitamin D deficiency Unspecified vitamin D deficiency documented in this encounter Care Teams Processing Technician Relationship Specialty Start Date End Date Darrel Tony MD [address] [place] [address] PCP - General Internal Medicine 11/22/21 documented as of this encounter
--- OUTSIDE RECORDS SUMMARY | 2024-05-21 09:49 | XMS_ITS | Encounter Summary ---
Author Organization [facility] Address [address] [place] [address] Care Team Providers Care Carpentry Instructor Name Role Phone Jaime Gonzales MD Primary Care Provider Unavail able Xenia Morfin MD Primary Care Provider Unavaila Manoj Hunter MD Primary Care Provider Un available Darrel Tony MD Primary Care Provider [phone] [phone] [facility], Pcp Primary Care Provider Unavailabl Stefan Landaverde Primary Care Provider Unav ailable Colette Anderson MD Primary Care Provider U navailDarrel Dugan MD Primary Care Provider +1 -[phone] Encounter Details Date Type Department Care Team Description 11/23/2011 Scabbler Report Medical Records [address] [place] [address] Abel Rider PA-C Social History Tobacco Use [...] Date Type Specialty Care Team Description 10/17/2024 Scabbler Report Abstract, Provider documented as of this encounter Visit Diagnoses Not on filedocumented in this encounter Care Teams Carpentry Instructor Relationship Specialty Start Date End Date Jaime Gonzales MD PCP - General 11/06/05 11/19/14 Xenia Morfin MD PCP - General Internal Medicine 11/20/14 09/01/15 Manoj Ragland MD PCP - General Internal Medicine 09/02/15 Darrel Tony MD [address] [place] [address] PCP - General Internal Medicine 02/18/16 07/05/16 [facility], Pcp [address] [place] [address] PCP - General Internal Medicine 07/06/16 11/13/17 Stefan Johnson [address] [place] [address] PCP - General Internal Medicine 11/14/17 02/25/18 Colette Anderson MD [address] [place] [address] PCP - General Internal Medicine 02/26/18 11/21/21 Darrel Tony MD [address] [place] [address] PCP - General Internal Medicine 11/22/21 documented as of this encounter
--- OUTSIDE RECORDS SUMMARY | 2024-05-21 09:49 | XMS_ITS | Encounter Summary ---
Author Organization [facility] Address [address] [place] [address] Care Team Providers Care Vending Machine Collector Name Role Phone Darrel Tony MD Primary Care Provider [phone] [phone] Encounter Details Date Type Department Care Team Description 04/10/2023 Pt. Non Urgent Medical Question [facility] [address] [facility] [address] [place] [id number] Thuy Pennington, PA-C [address] [facility] [address] [place] [address] Social History Tobacco Use Types Packs/Day Years [...] Date Type Specialty Care Team Description 10/17/2024 Washtub Worker Report Abstract, Provider documented as of this encounter Visit Diagnoses Not on filedocumented in this encounter Care Teams Vending Machine Collector Relationship Specialty Start Date End Date Darrel Tony MD [address] [place] [address] PCP - General Internal Medicine 11/22/21 documented as of this encounter
--- OUTSIDE RECORDS SUMMARY | 2024-05-21 09:49 | XMS_ITS | Encounter Summary ---
Author Organization [facility] Address [address] [place] [address] Care Team Providers Care Medical Aides Teacher Name Role Phone Colette Anderson MD Primary Care Provider U Darrel Castro MD Primary Care Provider [phone] [phone] Reason for Visit * Reason Onset Date Comments Appointment-Internal Referral 03/13/2018 Encounter Details Date Type Department Care Team Description 03/13/2018 Telephone Adult Medicine B - [address] [address] Yamileth Negrete PA-C [address] [place] [address] Appointment-Internal Referral Social History Tobacco Use Types Packs/Day [...] Miscellaneous Notes * Telephone Encounter - Rahel Rosales - 03/13/2018 10:59 AM EST We are unable to reach your patient to schedule their referral for the Screen Print Operator Department. Numerous attempts have been made and a letter has been sent to the patient. The patient is being taken off the work que at this time. Thank you, OBGYN department documented in this encounter Plan of Treatment Upcoming Encounters Date Type Specialty Care Team Description 10/17/2024 Water Technician Report Abstract, Provider documented as of this encounter Visit Diagnoses Not on filedocumented in this encounter Care Teams Medical Aides Teacher Relationship Specialty Start Date End Date Colette Anderson MD PCP - General Internal Medicine 02/26/1811/06 Darrel Tony MD [address] [place] [address] PCP - General Internal Medicine 11/22/21 documented as of this encounter
--- OUTSIDE RECORDS SUMMARY | 2024-05-21 09:49 | XMS_ITS | Clinical Summary ---
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 100 g 0 04/19/2023 Active nystatin (MYCOSTATIN) powder Apply to area of concern 2-3 times per day whenever rash is present. 15 g 3 05/03/2023 Active Incontinence Supply Disposable (Poise Ultimate Absorbency) PadsIndications:Urge incontinence of urine 1 Each by Does not apply route every 2 hours as needed (incontinence). 360 Each 11 05/08/2023 Active hydrochlorothiazide (HYDRODIURIL) 50 MG tabletIndications:Es sential hypertension, benign Take 1 Tablet by mouth daily. 90 Tablet 1 06/13/2023 Active Glucagon (Gvoke HypoPen 2-Pack) 1 MG/0.2ML Solution Auto-injector Inject 1 Device into the skin as needed for Other (low blood sugar). 0.2 mL 3 07/05/2023 Active Insulin Aspart (NovoLOG FlexPen) 100 UNIT/ML Solution Pen-injectorIndicati ons:Type 2 diabetes mellitus with microalbuminuria, with long-term current use of insulin ([facility]) Inject 2-10 Units into the skin 3 times daily (before meals). Inject three times a day with meals per scale IB BS 100-150: 7 units; 151-200: 8 unit; 201-250: 9 units; 251-300: 10 units; 301-350: 11 units; 351-400: 12 units - Subcutaneous, Plus 2 units for a high carb meals 30 mL 5 07/05/2023 Active Insulin Glargine (Lantus SoloStar) 100 UNIT/ML Solution Pen-injectorIndicati ons:Type 2 diabetes mellitus with microalbuminuria, with long-term current use of insulin (HCC) INJECT 65 UNITS INTO THE SKIN AT BEDTIME OR DIRECTED 60 mL 3 07/05/2023 Active amlodipine (NORVASC) 2.5 MG tablet Take 1 Tablet by mouth daily. With the 5 mg daily for a total of 7.5 mg 90 Tablet 1 09/22/2023 Active amlodipine (NORVASC) 5 MG tabletIndications:Es sential hypertension, benign Take 1 Tablet by mouth [...] 0 10/16/2023 Active lisinopril (PRINIVIL,ZESTRIL) 20 MG tabletIndications:Es sential hypertension, benign TAKE 1 TABLET BY MOUTH EVERY DAY 90 Tablet 1 10/31/2023 Active metformin (GLUCOPHAGE) 1000 MG tablet TAKE 1 TABLET BY MOUTH TWICE A DAY WITH FOOD 60 Tablet 5 11/01/2023 Active oxyCODONE HCl 10 MG TabIndications:Fibro myalgia,Other chronic pain Take 0.5 Tablets by mouth every 8 hours as needed for Other (pain) for up to 28 days. 42 Tablet 0 12/08/2023 Active Active Problems Problem Noted Date History of pulmonary embolism 06/28/2023 Primary osteoarthritis of right knee Tobacco use 06/28/2023 Pancreatitis 08/01/2022 Other chronic pain 10/30/2020 Diabetic polyneuropathy associated with type 2 diabetes mellitus 04/09/2020 History of 2019 novel coronavirus diseas e (COVID-19) 01/22/2020 Overview: Early January 2020 Vitamin D deficiency 11/14/2019 Lupus anticoagulant positive 05/02/2019 Overview: Pulmonary embolus in 1998 No AC since 03/2019 - Pos lupus [...] ARTHRALGIAS, MILD PROTEINURIA - resolved + Anti-DNA, Anti-CIGAR TOBACCO REHANDLER, Anti-Sm, SS-A On hydroxychloroquine - eye exam [...] Morbid obesity with BMI of 40.0-44.9, adult 10/201709/18/2020 Encounters Date Type Specialty Care Team Description 04/20/2024 Refill Adult Med Suzanne Winston, INVESTIGATOR UTILITY BILL COMPLAINTS E-prescribe Rx Request 04/03/2024 Refill Orthopedic John Garvin, JENNIFER E-prescribe Rx Request from Last 3 Months Immunizations Name Administration Dates Next Due COVID-19 [...] Date Type Specialty Care Team Description 10/17/2024 Scale Balancer Report Abstract, Provider Health Maintenance Due Date Last Done Comments DEPRESSION SCREEN 1979 DIABETES: ANNUAL FOOT EXAM 04/14/1985 SHINGLES VACCINE (1 of 2) 04/14/2017 DTAP/TDAP/TD (1 - Tdap) 03/27/2018 03/26/2018 DIABETES: ANNUAL URINE PROTE IN TEST (MICROALBUMIN) 08/11/2023 08/10/2022, 10/05/2021, 01/04/2021, Additional history exists Covid-19 Vaccine (3 - 2022-2 4 season) 2023 09/10/2020, 08/20/2020 DIABETES: BLOOD SUGAR CONTRO L TEST (HGBA1C) 01/25/2024 10/26/2023, 05/04/2023, 05/04/2023, Additional history exists BMI CHECK/ADVISE 02/07/2024 09/22/2023, 06/2023, 05/03/2023, Additional history exists DEPRESSION SCREENING/FOLLOWUP 02/07/2024, 04/12/2022, 11/19/2021, Additional history exists SOCIAL NEEDS SCREENING 02/07/2024 MAMMOGRAM 03/30/2024 03/30/2023, 10/2016, 03/05/2009, Additional history exists DIABETES: ANNUAL EYE EXAM 06/25/20242023, 06/23/2022, 06/22/2021, Additional history exists INFLUENZA (Season Ended) 2024 021, 11/26/2019, 12/06/2016, Additional history exists DIABETES/HEART DISEASE: MICHEL AL CHOLESTEROL (LDL) 10/25/2024 10/26/2023, 08/10/2022, 04/16/2021, Additional history exists BASELINE HEALTH EXAM 40-64 10/25/202510/25, 09/22/2023, 02/15/2023, Additional history exists CERVICAL CANCER SCREENING 05/02/20262023, 03/07/2011, 08/21/2008, Additional history exists COLON CANCER SCREENING 10/11/2028 10/12/2023, 2023 PNEUMOCOCCAL VACCINE FOR HIG H RISK PATIENTS (#2) 04/14/2032 03/26/2018 HEPATITIS C SCREENING Completed 02/12/2009 Care Teams Hub Cutter Relationship Specialty Start Date End Date Darrel Tony MD [address] [place] [address] PCP - General Internal Medicine 11/22/21
--- OUTSIDE RECORDS SUMMARY | 2024-05-21 09:49 | XMS_ITS | Encounter Summary ---
Author Organization [facility] Address [address] [place] [address] Care Team Providers Care Salesperson Hosiery Name Role Phone Darrel Tony MD Primary Care Provider +1 [phone] Encounter Details Date Type Department Care Team Description 09/20/2023 Pt. Non Urgent Medical Question Endocrinology - [address] [address] Trish Hyatt PA-C [address] [place] [address] Social History Tobacco Use Types Packs/Day Years [...] Telephone Encounter - Trish Hyatt PA-C - 09/20/2023 2:00 PM EDTFrom: Galina Doyle To: Alireza Hyatt Sent: 09/20/2023 12:58 PM EDT Subject: Appt I have a f/u appt on the 30, I also have an orthopedic appt that morning at 930, is there any sooner appointment than the 30th or earlier that day like 8? Galina Doyle documented in this encounter Plan of Treatment Upcoming Encounters Date Type Specialty Care Team Description 10/17/2024 Slusher Operator Report Abstract, Provider documented as of this encounter Visit Diagnoses Not on filedocumented in this encounter Care Teams Salesperson Hosiery Relationship Specialty Start Date End Date Darrel Tony MD [address] [place] [address] PCP - General Internal Medicine 11/22/21 documented as of this encounter
--- OUTSIDE RECORDS SUMMARY | 2024-05-21 09:49 | XMS_ITS | Encounter Summary ---
Author Organization [facility] Address [address] [place] [address] Care Team Providers Care Tree Feller Name Role Phone Colette Anderson MD Primary Care Provider U Darrel Castro MD Primary Care Provider +1 -[phone] Encounter Details Date Type Department Care Team Description 02/23/2021 Telephone Endocrinology - [place] [address] [place] [address] Trish Hyatt PA-C [address] [place] [address] Social History Tobacco Use Types Packs/Day Years [...] 3:48 PM EST Faxed paperwork over to [facility] and talk to thao * Telephone Encounter - Emerita East M.A. - 03/02/2021 3:32 PM EST Office notes, labs and insurance information [facility] per his request. He states patient will [...] Date Type Specialty Care Team Description 10/17/2024 Yardage Control Operator Forming Report Abstract, Provider documented as of this encounter Visit Diagnoses Not on filedocumented in this encounter Care Teams Tree Feller Relationship Specialty Start Date End Date Colette Anderson MD PCP - General Internal Medicine 02/26/1811/06 Darrel Tony MD [address] [place] [address] PCP - General Internal Medicine 11/22/21 documented as of this encounter
--- OUTSIDE RECORDS SUMMARY | 2024-05-21 09:49 | XMS_ITS | Encounter Summary ---
Author Organization [facility] Address [address] [place] [address] Care Team Providers Care Tool Polishing Machine Operator Name Role Phone Colette Anderson MD Primary Care Provider U Darrel Castro MD Primary Care Provider +1 -[phone] Encounter Details Date Type Department Care Team Description 02/18/2019 Telephone Adult Medicine [address] [address] Mark Hicks MD Social History Tobacco Use Types Packs/Day [...] Date Type Specialty Care Team Description 10/17/2024 Cement Block Maker Report Abstract, Provider documented as of this encounter Visit Diagnoses Not on filedocumented in this encounter Care Teams Tool Polishing Machine Operator Relationship Specialty Start Date End Date Colette Anderson MD PCP - General Internal Medicine 02/26/1811/06 Darrel Tony MD [address] [place] [address] PCP - General Internal Medicine 11/22/21 documented as of this encounter
--- OUTSIDE RECORDS SUMMARY | 2024-05-21 09:49 | XMS_ITS | Encounter Summary ---
Author Organization [facility] Address [address] [place] [address] Care Team Providers Care Buttonhole Marker Name Role Phone Colette Anderson MD Primary Care Provider U Darrel Castro MD Primary Care Provider +1 -[phone] Encounter Details Date Type Department Care Team Description 12/04/2019 Orders Only Adult Medicine B - [address] [address] Colette Anderson MD Fibromyalgia Social History Tobacco Use Types Packs/Day Years [...] Date Type Specialty Care Team Description 10/17/2024 Event Technician Report Abstract, Provider documented as of this encounter Visit Diagnoses Diagnosis Fibromyalgia Mylagia and myositis, unspecified documented in this encounter Care Teams Buttonhole Marker Relationship Specialty Start Date End Date Colette Anderson MD PCP - General Internal Medicine 02/26/1811/06 Darrel Tony MD [address] [place] [address] PCP - General Internal Medicine 11/22/21 documented as of this encounter
--- OUTSIDE RECORDS SUMMARY | 2024-05-21 09:49 | XMS_ITS | Encounter Summary ---
Author Organization [facility] [employer] [facility] Address [address] [place] [address] Care Team Providers Care Sales Outfitter Name Role Phone Darrel Tony MD Primary Care Provider +1 -[phone] Encounter Details Date Type Department Care Team Description 04/14/2022 PNO Controlled Substance Contract Medical Records [address] [place] [address] Abstract, Provider Social History Tobacco Use Types [...] Date Type Specialty Care Team Description 10/17/2024 Form Maker Plaster Report Abstract, Provider documented as of this encounter Visit Diagnoses Not on filedocumented in this encounter Care Teams Sales Outfitter Relationship Specialty Start Date End Date Darrel Tony MD [address] [place] [address] PCP - General Internal Medicine 11/22/21 documented as of this encounter
--- OUTSIDE RECORDS SUMMARY | 2024-05-21 09:49 | XMS_ITS | Encounter Summary ---
Author Organization [facility] Address [address] [place] [address] Care Team Providers Care Deputy Coroner Investigator Name Role Phone Colette Anderson MD Primary Care Provider U Darrel Castro MD Primary Care Provider +1 -[phone] Reason for Visit * Reason Comments E-prescribe Rx Request Encounter Details Date Type Department Care Team Description 05/28/2021 Refill Rheumatology - [address] [address] Home Warner MD E-prescribe Rx Request Social [...] N/A Patients current insurance carrier is: Payor: [employer] FFS / Plan: [employer] / Product Type: MEDICAID RISK documented in this encounter Plan of Treatment Upcoming Encounters Date Type Specialty Care Team Description 10/17/2024 Dielectric Machine Operator Report Abstract, Provider documented as of this encounter Visit Diagnoses Diagnosis Systemic lupus erythematosus (SLE) with pericarditis, unspecified SLE type (HCC) documented in this encounter Care Teams Deputy Coroner Investigator Relationship Specialty Start Date End Date Colette Anderson MD PCP - General Internal Medicine 02/26/1811/06 Darrel Tony MD [address] [place] [address] PCP - General Internal Medicine 11/22/21 documented as of this encounter
--- OUTSIDE RECORDS SUMMARY | 2024-05-21 09:50 | XMS_ITS | Encounter Summary ---
Author Organization [facility] Address [address] [place] [address] Care Team Providers Care Chip Person Name Role Phone Darrel Tony MD Primary Care Provider +1 -[phone] Encounter Details Date Type Department Care Team Description 07/05/2022 Distiller Report Medical Records [address] [place] [address] Home Warner MD Social History Tobacco Use [...] Date Type Specialty Care Team Description 10/17/2024 Distiller Report Abstract, Provider documented as of this encounter Visit Diagnoses Not on filedocumented in this encounter Care Teams Chip Person Relationship Specialty Start Date End Date Darrel Tony MD [address] [place] [address] PCP - General Internal Medicine 11/22/21 documented as of this encounter
--- OUTSIDE RECORDS SUMMARY | 2024-05-21 09:50 | XMS_ITS | Encounter Summary ---
Author Organization [facility] Address [address] [place] [address] Care Team Providers Care Card Table Attendant Name Role Phone Darrel Tony MD Primary Care Provider +1 -[phone] Encounter Details Date Type Department Care Team Description 04/26/2022 Pt. Non Urgent Medical Question Adult Medicine [address] [address] Darrel Tony MD [address] [place] [address] Social History Tobacco Use Types Packs/Day Years [...] Javier M.A. - 04/26/2022 3:39 PM EDTFrom: Galina Doyle To: Trudy Tony Sent: 04/26/2022 3:39 PM EDT Subject: F/u med review I need to schedule an appointment for early August please per Dr Tony. I tried to do it onlinebut it didn't give me any dates or times. Galina Doyle documented in this encounter Plan of Treatment Upcoming Encounters Date Type Specialty Care Team Description 10/17/2024 Straightedge Worker Report Abstract, Provider documented as of this encounter Visit Diagnoses Not on filedocumented in this encounter Care Teams Card Table Attendant Relationship Specialty Start Date End Date Darrel Tony MD [address] [place] [address] PCP - General Internal Medicine 11/22/21 documented as of this encounter
--- OUTSIDE RECORDS SUMMARY | 2024-05-21 09:50 | XMS_ITS | Encounter Summary ---
Author Organization [facility] Address [address] [place] [address] Care Team Providers Care Pilot Safety Inspector Name Role Phone Darrel Tony MD Primary Care Provider +1 -[phone] Encounter Details Date Type Department Care Team Description 07/15/2022 Refill Adult Medicine [address] [address] Darrel Tony MD [address] [place] [address] Social History Tobacco Use Types Packs/Day Years [...] .Message below was given to patient. ANNABELLE GOLDEN * Telephone Encounter - Beba Gar M.A. - 07/15/2022 9:22 AM EDT Rx set up, forward to PCP documented in this encounter Plan of Treatment Upcoming Encounters Date Type Specialty Care Team Description 10/17/2024 Ophthalmology Assistant Report Abstract, Provider documented as of this encounter Visit Diagnoses Diagnosis Fibromyalgia Mylagia and myositis, unspecified documented in this encounter Care Teams Pilot Safety Inspector Relationship Specialty Start Date End Date Darrel Tony MD [address] [place] [address] PCP - General Internal Medicine 11/22/21 documented as of this encounter
--- OUTSIDE RECORDS SUMMARY | 2024-05-21 09:50 | XMS_ITS | Encounter Summary ---
Author Organization [facility] Address [address] [place] [address] Care Team Providers Care Mechatronics Engineer Name Role Phone Darrel Tony MD Primary Care Provider +1 [phone] Reason for Visit * Reason Onset Date Comments Faxed Order 05/17/2024 [facility] Encounter Details Date Type Department Care Team (Late st Contact Info) Description 05/17/2024 Telephone Internal [facility] - [facility] [address] [place] [address] Darrel Tony MD [address] [place] [address] Faxed Order ([facility] ) Social History Tobacco Use Types Packs/Day [...] as of this encounter Progress Notes * Raya Love - 05/17/2024 4:05 PM EDT Orders from [facility] placed in Darrel Tony MD bin. Please complete and fax back to [phone]. Thank you documented in this encounter Plan of Treatment Not on file documented as of this encounter Visit Diagnoses Not on filedocumented in this encounter Care Teams Mechatronics Engineer Relationship Specialty Start Date End Date Darrel Tony MD [address] [place] [address] PCP - General Internal Medicine 11/22/21 documented as of this encounter
== END 2024-05-21 09:46 | disposition home or self-care (01) ==
LOC: HO.RHE 09:08
PROVIDERS: PCP Student in an Organized Health Care Education/Training Program; Visit Provider Student in an Organized Health Care Education/Training Program
DX: M32.9 Systemic lupus erythematosus, unspecified (principal); Z79.899 Other long term (current) drug therapy; Z79.620 Long term (current) use of immunosuppressive biologic
CPT/HCPCS: 99215; G2211

== ENCOUNTER → 2024-05-21 09:02 | Outpatient (BNVA) | payer MEDICARE, SELFPAY | PROVIDERS: PCP Student in an Organized Health Care Education/Training Program; Visit Provider Student in an Organized Health Care Education/Training Program | DX: M32.9 Systemic lupus erythematosus, unspecified (principal); M15.9 Polyosteoarthritis, unspecified; E55.9 Vitamin D deficiency, unspecified; Z96.651 Presence of right artificial knee joint; Z79.620 Long term (current) use of immunosuppressive biologic; Z79.899 Other long term (current) drug therapy | CPT/HCPCS: 99212 ==

== ENCOUNTER 2024-05-29 10:43 | Outpatient (REF) | payer OTHER, SELFPAY ==
--- NOTE | ~2024-05-29 | XR_ITS ---
EXAMINATION: XR KNEE, RIGHT CLINICAL INFORMATION: M25.569 - Pain in unspecified knee COMPARISON: May 09, 2024. TECHNIQUE: Three views of the right knee. FINDINGS: Metallic prosthesis with a femoral and tibial component well-seated in the osseous structures. There is cement the tibial component. There is loosening between the cement and the osseous tibia. There is minimal loosening along the medial aspect of the distal metaphysis right femur. No gross malalignment. Edema pattern in the prepatellar soft tissues. 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 Electronically signed by: Laz Garcia MD 05/31/2024 07:24 AM EDT
--- OUTSIDE RECORDS SUMMARY | 2024-05-29 12:44 | XMS_ITS | Encounter Summary ---
[facility] Organization [facility] Address [address] [place] [address] Care Team Providers Care Bobtail Driver Name Role Phone Darrel Tony MD Primary Care Provider +1 -[phone] Reason for Visit * Reason Onset Date Comments lab test 02/16/2023 Encounter Details Date Type Department Care Team Description 02/16/2023 Telephone Endocrinology - [address] [address] Trish Hyatt PA-C [address] [place] [address] lab test Social History Tobacco Use Types [...] Date Type Specialty Care Team Description 10/17/2024 Town Marshal Report Abstract, Provider documented as of this encounter Visit Diagnoses Not on filedocumented in this encounter Care Teams Bobtail Driver Relationship Specialty Start Date End Date Darrel Tony MD [address] [place] [address] PCP - General Internal Medicine 11/22/21 documented as of this encounter
--- OUTSIDE RECORDS SUMMARY | 2024-05-29 12:44 | XMS_ITS | Encounter Summary ---
[facility] Address [address] [place] [address] Care Team Providers Care Jailor Name Role Phone Darrel Tony MD Primary Care Provider +1 -[phone] Encounter Details Date Type Department Care Team Description 01/30/2023 CGM Report Medical Records [address] [place] [address] Abstract, Provider Social History Tobacco Use Types [...] Date Type Specialty Care Team Description 10/17/2024 Sample Grader Report Abstract, Provider documented as of this encounter Visit Diagnoses Not on filedocumented in this encounter Care Teams Jailor Relationship Specialty Start Date End Date Darrel Tony MD [address] [place] [address] PCP - General Internal Medicine 11/22/21 documented as of this encounter
--- OUTSIDE RECORDS SUMMARY | 2024-05-29 12:44 | XMS_ITS | Encounter Summary ---
Author Organization [facility] Address [address] [place] [address] Care Team Providers Care Materials Planning Manager Name Role Phone Darrel Tony MD Primary Care Provider +1 -[phone] Encounter Details Date Type Department Care Team Description 01/10/2023 Refill Adult Medicine B - [facility] [address] [place] [address] Suzanne Winston, CANVAS SHOP LABORER [address] [place] [address] Social History Tobacco Use Types Packs/Day Years [...] 10 Mg Tab 42 28 Te Sva [id number] [facility] (4352) 0/0 22.50 MME [place] 12/01/2022 11/18/2022 2 Zolpidem Tartrate 10 Mg Tablet 28 28 [facility] [id number] [facility] (1855) 0/0 0.50 LME Medicaid [place] 11/20/2022 08/24/2022 2 Gabapentin 600 Mg Tablet 168 28 Ja [facility] [id number] [facility] (1855) 2/2 4.02 L[place] 11/10/2022 11/10/2022 2 Oxycodone Hcl (Ir) 10 Mg Tab 42 28 Ka Gun [id number] [facility] (4352) 0/0 22.50 [place] 10/13/2022 08/24/2022 2 Gabapentin 600 Mg Tablet 168 28 [facility] [id number] [facility] (1855) 1/2 4.02 [place] 10/13/2022 10/13/2022 2 Oxycodone Hcl (Ir) 10 Mg Tab 42 14 Ka Gun [id number] [facility] (4352) 0/0 45.00 [place] 10/12/2022 10/12/2022 2 Zolpidem Tartrate 10 Mg Tablet 28 28 [facility] [id number] [facility] (1855) 0/0 0.50 [place] 09/13/2022 09/13/2022 2 Oxycodone Hcl (Ir) 10 Mg Tab 42 28 Ka Gun [id number] [facility] (4352) 0/0 22.50 [place] 08/30/2022 08/29/2022 2 Zolpidem Tartrate 10 Mg Tablet 30 30 [facility] [id number] [facility] (1855) 0/0 0.50 [place] 08/24/2022 08/24/2022 2 Gabapentin 600 Mg Tablet 168 28 Ja [facility] [id number] [facility] (1855) 0/2 4.02 L[place] 08/15/2022 08/15/2022 2 Oxycodone Hcl (Ir) 10 Mg Tab 42 28 Ka Gun [id number] [facility] (1855) 0/0 22.50 [place] 07/29/2022 06/13/2022 2 Zolpidem Tartrate 10 Mg Tablet 28 28 [facility] [id number] [facility] (1854) 0/0 0.50 [place] 07/29/2022 2022 2 Gabapentin 600 Mg Tablet 168 28 Ja [facility] [id number] [facility] (1854) 0/1 4.02 [place] 07/15/2022 07/15/2022 2 Oxycodone Hcl (Ir) 10 Mg Tab 42 14 Ka [facility] [id number] [facility] (1854) 0/0 45.00 [place] 06/24/2022 2022 1 Gabapentin 600 Mg Tablet 180 30 Ja [facility] [id number] [facility] (7608) 2/3 4.02 LME [place] documented in this encounter Plan of Treatment Upcoming Encounters Date Type Specialty Care Team Description 10/17/2024 Addictions Therapist Report Abstract, Provider documented as of this encounter Visit Diagnoses Diagnosis Encounter for long-term (current) use of medications- Primary Encounter for long-term (current) use of other medications Fibromyalgia Mylagia and myositis, unspecified Other chronic pain documented in this encounter Care Teams Materials Planning Manager Relationship Specialty Start Date End Date Darrel Tony MD [address] [place] [address] PCP - General Internal Medicine 11/22/21 documented as of this encounter
--- OUTSIDE RECORDS SUMMARY | 2024-05-29 12:44 | XMS_ITS | Encounter Summary ---
[facility] Address [address] [place] [address] Care Team Providers Care Instructional Services Specialist Name Role Phone Colette Anderson MD Primary Care Provider U Darrel Castro MD Primary Care Provider +1 -[phone] Encounter Details Date Type Department Care Team Description 07/30/2020 Refill Adult Medicine [address] [address] Colette Anderson MD Social History Tobacco Use [...] Type Specialty Care Team Description 10/17/2024 School Clerk Report Abstract, Provider documented as of this encounter Visit Diagnoses Not on filedocumented in this encounter Care Teams Instructional Services Specialist Relationship Specialty Start Date End Date Colette Anderson MD PCP - General Internal Medicine 02/26/1811/06 Darrel Tony MD [address] [place] [address] PCP - General Internal Medicine 11/22/21 documented as of this encounter
--- OUTSIDE RECORDS SUMMARY | 2024-05-29 12:44 | XMS_ITS | Encounter Summary ---
[facility] Address [address] [place] [address] Care Team Providers Care Helpdesk Technician Name Role Phone Darrel Tony MD Primary Care Provider +1 -[phone] Reason for Visit * Reason Onset Date Comments Orders Call 01/26/2023 Lmtcb on , ple ase transfer call to ext: [phone] Encounter Details Date Type Department Care Team Description 01/26/2023 Telephone Adult Medicine [address] [address] Andres Gunn NP [address] [place] [phone] Orders Call (Lmtcb on , please transfer call to ext: [phone] ) Social History Tobacco Use Types Packs/Day [...] Date Type Specialty Care Team Description 10/17/2024 Milking System Installer Report Abstract, Provider documented as of this encounter Visit Diagnoses Not on filedocumented in this encounter Care Teams Helpdesk Technician Relationship Specialty Start Date End Date Darrel Tony MD [address] [place] [address] PCP - General Internal Medicine 11/22/21 documented as of this encounter
--- OUTSIDE RECORDS SUMMARY | 2024-05-29 12:44 | XMS_ITS | Encounter Summary ---
Author Organization [facility] Address [address] [place] [address] Care Team Providers Care Nozzle Cement Sprayer Helper Name Role Phone Colette Anderson MD Primary Care Provider U Darrel Castro MD Primary Care Provider +1 -[phone] Reason for Visit * Reason Onset Date Comments Prior Authorization 09/21/2020 Encounter Details Date Type Department Care Team Description 09/21/2020 Telephone Adult Medicine B - [place] [address] [place] [address] Colette Anderson MD Prior Authorization Social History [...] Telephone Encounter - Robyn Mullergelalewis - 09/21/2020 11:37 AM EDT Prior Authorization for Medication-do not complete and send this encounter unless you have the fax from the pharmacy. Is this a Cover My Meds request: Yes -- Nagy Code [id number] Name of Medication Continuous Blood Gluc Transmit (Dexcom G6 Transmitter) Dose of Medication NA What is the RX # from the faxed refill? NA How does patient take this med? Change transmitter every 3 months What Pharmacy did the fax come from: [facility] Pharmacy fax #: [phone] documented in this encounter Plan of Treatment Upcoming Encounters Date Type Specialty Care Team Description 10/17/2024 Mechanical Engineer Report Abstract, Provider documented as of this encounter Visit Diagnoses Not on filedocumented in this encounter Care Teams Nozzle Cement Sprayer Helper Relationship Specialty Start Date End Date Colette Anderson MD PCP - General Internal Medicine 02/26/1811/06 Darrel Tony MD [address] [place] [address] PCP - General Internal Medicine 11/22/21 documented as of this encounter
--- OUTSIDE RECORDS SUMMARY | 2024-05-29 12:44 | XMS_ITS | Encounter Summary ---
Author Organization [facility] Address [address] [place] [address] Care Team Providers Care Assistant Clinical Director Name Role Phone Darrel Tony MD Primary Care Provider +1 -[phone] Reason for Visit * Reason Onset Date Comments refill request 03/16/2023 Encounter Details Date Type Department Care Team Description 03/16/2023 Refill Adult Medicine B - [place] [address] [place] [address] Suzanne Winston, EXTERMINATOR [address] [place] [address] refill request Social History Tobacco Use Types [...] Tartrate 10 Mg Tablet 30 30 [facility] [id number] [facility] (18[facility] 0/0 0.50 [place] 02/16/2023 02/13/2023 2 Oxycodone Hcl (Ir) 10 Mg Tab 42 28 Te Sva [id number] [facility] (4352) 0/0 22.50 [place] 02/11/2023 01/13/2023 2 Gabapentin 600 Mg Tablet 168 28 Iraj [id number] [facility] (1855) 1/4 4.02 [place] 02/10/2023 02/10/2023 2 Oxycodone Hcl (Ir) 10 Mg Tab 10 7 Ka Gun [id number] [facility] (4352) 0/0 21.43 [place] 01/23/2023 01/12/2023 2 Zolpidem Tartrate 10 Mg Tablet 28 28 [facility] [id number] [facility] (1855) 0/0 0.50 [place] 01/23/2023 01/13/2023 2 Gabapentin 600 Mg Tablet 168 28 Iraj [id number] [facility] (1855) 0/4 4.02 [place] 01/11/2023 01/11/2023 2 Oxycodone Hcl (Ir) 10 Mg Tab 42 28 Ka Gun [id number] [facility] (4352) 0/0 22.50 MME [place] 12/12/2022 12/12/2022 2 Oxycodone Hcl (Ir) 10 Mg Tab 42 28 Te Sva [id number] [facility] (4352) 0/0 22.50 MME [place] 12/01/2022 11/18/2022 2 Zolpidem Tartrate 10 Mg Tablet 28 28 [facility] [id number] [facility] (1855) 0/0 0.50 LME [place] 11/20/2022 08/24/2022 2 Gabapentin 600 Mg Tablet 168 28 Ja Iraj [id number] [facility] (1855) 2/2 4.02 L[place] 11/10/2022 11/10/2022 2 Oxycodone Hcl (Ir) 10 Mg Tab 42 28 Ka Gun [id number] [facility] (4352) 0/0 22.50 MME Medicaid [place] 10/13/2022 08/24/2022 2 Gabapentin 600 Mg Tablet 168 28 Ja [facility] [id number] [facility] (1855) 1/2 4.02 LME Medicaid [place] 10/13/2022 10/13/2022 2 Oxycodone Hcl (Ir) 10 Mg Tab 42 14 Ka Gun [id number] [facility] (4352) 0/0 45.00 MME [place] 10/12/2022 10/12/2022 2 Zolpidem Tartrate 10 Mg Tablet 28 28 [facility] [id number] [facility] (1855) 0/0 0.50 LME Medicaid [place] 09/13/2022 09/13/2022 2 Oxycodone Hcl (Ir) 10 Mg Tab 42 28 Ka Gun [id number] [facility] (4352) 0/0 documented in this encounter Plan of Treatment Upcoming Encounters Date Type Specialty Care Team Description 10/17/2024 Obstetrics Gynecology Md Report Abstract, Provider Scheduled Orders Name Type [...] POSITIVE( A) ND 07/11/2023 3:53 PM EDT [facility] Comment: Assay cutoff 100 ng/mL Semi-quantitative assay for screening purposes only. Unconfirmed screening result should not be used for non-medical purposes. *ALTERNATE METHOD CONFIRMATION DONE UPON REQUEST ONLY* 07/11/2023 1:47 PM EDT 07/11/2023 1:48 PM EDT Narrative [facility] - 07/11/2023 3:53 PM EDT Release to patient->Immediate Darrel Tony MD LAB [facility] * (ABNORMAL) DRUG OF ABUSE SCREEN (07/11/2023 1:47 PM EDT) BENZODIAZEPINE, URINE NONE DETECTED ND 07/11/2023 3:48 PM EDT [facility] Comment: Assay cutoff 200 ng/mL Semi-quantitative assay for screening purposes only. Unconfirmed screening result should not be used for non-medical purposes. *ALTERNATE METHOD CONFIRMATION DONE UPON REQUEST ONLY* OPIATES, URINE POSITIVE(A) ND 3:48 PM EDT [facility] Comment: Assay cutoff 300 ng/mL Semi-quantitative assay for screening purposes only. Unconfirmed screening result should not be used for non-medical purposes. *ALTERNATE METHOD CONFIRMATION DONE UPON REQUEST ONLY* BARBITURATES, URINE NONE DETECTED ND 07/11/2023 3:48 PM EDT [facility] Comment: Assay cutoff 200 ng/mL Semi-quantitative assay for screening purposes only. Unconfirmed screening result should not be used for non-medical purposes. *ALTERNATE METHOD CONFIRMATION DONE UPON REQUEST ONLY* PAIN AMPHETAMINES NONE DETECTED ND 07/11/2023 3:48 PM EDT [facility] Comment: Assay cutoff 1000 ng/mL Semi-quantitative assay for screening purposes only. Unconfirmed screening result should not be used for non-medical purposes. *POSITIVE RESULTS ARE AUTOMATICALLY SENT FOR ALTERNATE METHOD CONFIRMATION* PAIN COCAINE NONE DETECTED ND 07/11/2023 3:48 PM EDT [facility] Comment: Assay cutoff 300 ng/mL Semi-quantitative assay for screening purposes only. Unconfirmed screening result should not be used for non-medical purposes. *POSITIVE RESULTS ARE AUTOMATICALLY SENT FOR ALTERNATE METHOD CONFIRMATION* PAIN CANNABINOID NONE DETECTED ND 07/11/2023 3:48 PM EDT [facility] Comment: Assay cutoff 50 ng/mL Semi-quantitative assay for screening purposes only. Unconfirmed screening result should not be used for non-medical purposes. *POSITIVE RESULTS ARE AUTOMATICALLY SENT FOR ALTERNATE METHOD CONFIRMATION* 07/11/2023 1:47 PM EDT 07/11/2023 1:48 PM EDT Narrative [facility] - 07/11/2023 3:48 PM EDT Release to patient->Immediate Darrel Tony MD LAB [facility] documented in this encounter Visit Diagnoses [...] (HCC) documented in this encounter Care Teams Assistant Clinical Director Relationship Specialty Start Date End Date Darrel Tony MD [address] [place] [address] PCP - General Internal Medicine 11/22/21 documented as of this encounter
--- OUTSIDE RECORDS SUMMARY | 2024-05-29 12:44 | XMS_ITS | Encounter Summary ---
Author Organization [facility] Address [address] [place] [address] Care Team Providers Care Top Dyeing Machine Loader Name Role Phone Darrel Tony MD Primary Care Provider +1 -[phone] Encounter Details Date Type Department Care Team Description 02/20/2023 Hospital Medical Records [address] [place] [address] Rufus Bernard MD [address] [place] [address] Social History Tobacco Use Types Packs/Day Years [...] Date Type Specialty Care Team Description 10/17/2024 Veneer Sheet Repairer Report Abstract, Provider documented as of this encounter Visit Diagnoses Not on filedocumented in this encounter Care Teams Top Dyeing Machine Loader Relationship Specialty Start Date End Date Darrel Tony MD [address] [place] [address] [id number] PCP - General Internal Medicine 11/22/21 documented as of this encounter
--- OUTSIDE RECORDS SUMMARY | 2024-05-29 12:44 | XMS_ITS | Encounter Summary ---
Author Organization [facility] Address [address] [place] [address] Care Team Providers Care Eyeglass Lens Grinder Name Role Phone Colette Anderson MD Primary Care Provider U Darrel Castro MD Primary Care Provider +1 -[phone] Reason for Visit * Reason Onset Date Comments Prior Authorization 09/21/2020 Encounter Details Date Type Department Care Team Description 09/21/2020 Telephone Adult Medicine B - [place] [address] [place] [address] Colette Anderson MD Prior Authorization Social History [...] My Meds request: Yes -- Nagy Code [id number] Name of Medication Continuous Blood Gluc Manager Environmental Affairs (Dexcom G6 Manager Environmental Affairs) Device Dose of Medication NA What is the RX # from the faxed refill? NA How does patient take this med? What Pharmacy did the fax come from: [facility] Pharmacy fax #: [phone] documented in this encounter Plan of Treatment Upcoming Encounters Date Type Specialty Care Team Description 10/17/2024 Customer Experience Professional Report Abstract, Provider documented as of this encounter Visit Diagnoses Not on filedocumented in this encounter Care Teams Eyeglass Lens Grinder Relationship Specialty Start Date End Date Colette Anderson MD PCP - General Internal Medicine 02/26/1811/06 Darrel Tony MD [address] [place] [address] PCP - General Internal Medicine 11/22/21 documented as of this encounter
--- OUTSIDE RECORDS SUMMARY | 2024-05-29 12:44 | XMS_ITS | Encounter Summary ---
Author Organization [facility] Address [address] [place] [address] Care Team Providers Care Rag Sorter Name Role Phone Darrel Tony MD Primary Care Provider +1 -[phone] Encounter Details Date Type Department Care Team Description 01/25/2023 Pt. Non Urgent Medical Question OBGYN - [address] [address] Daniella Marion, [address] [place] [address] Social History Tobacco Use Types Packs/Day Years [...] Date Type Specialty Care Team Description 10/17/2024 Leadership Program Internship Report Abstract, Provider documented as of this encounter Visit Diagnoses Not on filedocumented in this encounter Care Teams Rag Sorter Relationship Specialty Start Date End Date Darrel Tony MD [address] [place] [address] PCP - General Internal Medicine 11/22/21 documented as of this encounter
--- OUTSIDE RECORDS SUMMARY | 2024-05-29 12:44 | XMS_ITS | Encounter Summary ---
Author Organization [facility] Address [address] [place] [address] Care Team Providers Care Executive Pilot Name Role Phone Darrel Tony MD Primary Care Provider +1 -[phone] Encounter Details Date Type Department Care Team Description 02/20/2023 Orders Only Medical Records [address] [place] [address] Rufus Bernard MD [address] [place] [address] Social History Tobacco Use Types Packs/Day Years [...] Date Type Specialty Care Team Description 10/17/2024 Horse Farm Manager Report Abstract, Provider documented as of this encounter Procedures Procedure Name Priority Date/Time Associated Diagnosis Comments OUTSIDE COLONOSCOPY Routine 02/20/2023 documented in this encounter Results * OUTSIDE COLONOSCOPY (02/20/2023) Rufus Bernard MD RADIOLOGY documented in this encounter Visit Diagnoses Not on filedocumented in this encounter Care Teams Executive Pilot Relationship Specialty Start Date End Date Darrel Tony MD [address] [place] [address] [id number] PCP - General Internal Medicine 11/22/21 documented as of this encounter
--- OUTSIDE RECORDS SUMMARY | 2024-05-29 12:44 | XMS_ITS | Encounter Summary ---
Author Organization [facility] Address [address] [place] [address] Care Team Providers Care Cyber Defense Incident Responder Name Role Phone Colette Anderson MD Primary Care Provider U Darrel Castro MD Primary Care Provider +1 -[phone] Reason for Visit * Reason Onset Date Comments Emg 06/17/2020 Encounter Details Date Type Department Care Team Description 06/17/2020 Telephone Physiatry - [address] [address] Leona Mays MD [address] [place] [address] [place], [place] [id number] Emg Social History Tobacco Use Types Packs/Day [...] Date Type Specialty Care Team Description 10/17/2024 Bottle Blowing Machine Tender Report Abstract, Provider documented as of this encounter Visit Diagnoses Not on filedocumented in this encounter Care Teams Cyber Defense Incident Responder Relationship Specialty Start Date End Date Colette Anderson MD PCP - General Internal Medicine 02/26/1811/06 Darrel Tony MD [address] [place] [address] PCP - General Internal Medicine 11/22/21 documented as of this encounter
--- OUTSIDE RECORDS SUMMARY | 2024-05-29 12:45 | XMS_ITS | Encounter Summary ---
Author [facility] Address [address] [place] [address] Care Team Providers Care Db2 Dba Name Role Phone Darrel Tony MD Primary Care Provider +1 -[phone] Reason for Visit * Reason Onset Date Comments Medication 12/01/2022 Encounter Details Date Type Department Care Team Description 12/01/2022 Refill Gastroenterology [address] [place] [phone] Rufus Bernard MD [address] [place] [address] Medication Social History Tobacco Use Types Packs/Day [...] Date Type Specialty Care Team Description 10/17/2024 Boom Crane Operator Report Abstract, Provider documented as of this encounter Visit Diagnoses Not on filedocumented in this encounter Care Teams Db2 Dba Relationship Specialty Start Date End Date Darrel Tony MD [address] [place] [address] PCP - General Internal Medicine 11/22/21 documented as of this encounter
--- OUTSIDE RECORDS SUMMARY | 2024-05-29 12:45 | XMS_ITS | Encounter Summary ---
Author Organization [facility] Address [address] [place] [address] Care Team Providers Care Kiln Loader Name Role Phone Darrel Tony MD Primary Care Provider +1 -[phone] Reason for Visit * Reason Onset Date Comments Information Needed 06/26/2023 [facility] Encounter Details Date Type Department Care Team Description 06/26/2023 Telephone Adult Medicine [address] [address] Darrel Tony MD [address] [place] [address] Information Needed ([facility]) Social History Tobacco Use Types Packs/Day Years [...] Needed Who is calling: Other Fax from [facility] Information being requested? Recent office visit and physical for the pt If other information is needed, was an ASHOK signed? YES How is the information to be communicated back to the caller? Faxed to [facility] @ [phone] documented in this encounter Plan of Treatment Upcoming Encounters Date Type Specialty Care Team Description 10/17/2024 Manager Of Change Report Abstract, Provider documented as of this encounter Visit Diagnoses Not on filedocumented in this encounter Care Teams Kiln Loader Relationship Specialty Start Date End Date Darrel Tony MD [address] [place] [address] PCP - General Internal Medicine 11/22/21 documented as of this encounter
--- OUTSIDE RECORDS SUMMARY | 2024-05-29 12:45 | XMS_ITS | Encounter Summary ---
[facility] Organization [facility] Address [address] [place] [address] Care Team Providers Care Electrodynamicist Name Role Phone Darrel Tony MD Primary Care Provider +1 -[phone] Encounter Details Date Type Department Care Team Description 11/09/2022 Old Medical Records Medical Records [address] [place] [address] Home Warner MD Social History Tobacco Use [...] Date Type Specialty Care Team Description 10/17/2024 Silk Screen Painter Report Abstract, Provider documented as of this encounter Visit Diagnoses Not on filedocumented in this encounter Care Teams Electrodynamicist Relationship Specialty Start Date End Date Darrel Tony MD [address] [place] [address] PCP - General Internal Medicine 11/22/21 documented as of this encounter
--- OUTSIDE RECORDS SUMMARY | 2024-05-29 12:45 | XMS_ITS | Encounter Summary ---
Author Organization [facility] Address [address] [place] [address] Care Team Providers Care Poultry Processing Supervisor Name Role Phone Colette Anderson MD Primary Care Provider U Darrel Castro MD Primary Care Provider +1 -[phone] Reason for Visit * Reason Onset Date Comments Prior Authorization 11/03/2020 Encounter Details Date Type Department Care Team Description 11/03/2020 Telephone Adult [facility] - [address] [address] Colette Anderson MD Prior Authorization Social History [...] Type Specialty Care Team Description 10/17/2024 Field Operations Manager Report Abstract, Provider documented as of this encounter Visit Diagnoses Not on filedocumented in this encounter Care Teams Poultry Processing Supervisor Relationship Specialty Start Date End Date Colette Anderson MD PCP - General Internal Medicine 02/26/1811/06 Darrel Tony MD [address] [place] [address] PCP - General Internal Medicine 11/22/21 documented as of this encounter
--- OUTSIDE RECORDS SUMMARY | 2024-05-29 12:45 | XMS_ITS | Encounter Summary ---
Author Organization [facility] Address [address] [place] [address] Care Team Providers Care Console Operator Name Role Phone Darrel Tony MD Primary Care Provider +1 -[phone] Encounter Details Date Type Department Care Team Description 09/19/2022 Pt. Non Urgent Medical Question Adult Medicine [address] [address] Darrel Tony MD [address] [place] [address] Social History Tobacco Use Types Packs/Day Years [...] Date Type Specialty Care Team Description 10/17/2024 Final Finisher Report Abstract, Provider documented as of this encounter Visit Diagnoses Not on filedocumented in this encounter Care Teams Console Operator Relationship Specialty Start Date End Date Darrel Tony MD [address] [place] [address] PCP - General Internal Medicine 11/22/21 documented as of this encounter
--- OUTSIDE RECORDS SUMMARY | 2024-05-29 12:45 | XMS_ITS | Encounter Summary ---
Author [facility] Address [address] [place] [address] Care Team Providers Care Fire Ranger Name Role Phone Darrel Tony MD Primary Care Provider +1 -[phone] Encounter Details Date Type Department Care Team Description 05/09/2023 Impact Retail Service Merchandiser Report Medical Records [address] [place] [address] Rosa Weller NP Social History Tobacco Use Types Packs/Day [...] Date Type Specialty Care Team Description 10/17/2024 Impact Retail Service Merchandiser Report Abstract, Provider documented as of this encounter Visit Diagnoses Not on filedocumented in this encounter Care Teams Fire Ranger Relationship Specialty Start Date End Date Darrel Tony MD [address] [place] [address] PCP - General Internal Medicine 11/22/21 documented as of this encounter
--- OUTSIDE RECORDS SUMMARY | 2024-05-29 12:45 | XMS_ITS | Encounter Summary ---
Author Organization [facility] Address [address] [place] [address] Care Team Providers Care Vice President Supply Chain Name Role Phone Darrel Tony MD Primary Care Provider +1 -[phone] Reason for Visit * Reason Onset Date Comments Faxed Order 03/22/2023 MRI Encounter Details Date Type Department Care Team Description 03/22/2023 Telephone [facility] Medical [facility] [address] [facility] [address] [place] [phone] Thuy Pennington, PA-C [address] [facility] [address] [place] [address] Faxed Order (MRI) Social History Tobacco Use [...] Type Specialty Care Team Description 10/17/2024 Inspector Tester Sorter Report Abstract, Provider documented as of this encounter Visit Diagnoses Not on filedocumented in this encounter Care Teams Vice President Supply Chain Relationship Specialty Start Date End Date Darrel Tony MD [address] [place] [address] PCP - General Internal Medicine 11/22/21 documented as of this encounter
--- OUTSIDE RECORDS SUMMARY | 2024-05-29 12:45 | XMS_ITS | Encounter Summary ---
Author Organization [facility] Address [address] [place] [address] Care Team Providers Care Senior Architect Name Role Phone Darrel Tony MD Primary Care Provider +1 -[phone] Reason for Visit * Reason Onset Date Comments Prior Authorization 03/22/2023 Dexcom G6 Tr ansmitters & Sensors Encounter Details Date Type Department Care Team Description 03/22/2023 Telephone Endocrinology - [address] [address] Trish Hyatt PA-C [address] [place] [address] Prior Authorization (Dexcom G6 Transmitters & Sensors) [...] 12:29 PM EST PA approval received from [facility] Auth# [id number] Valid 03.29.23 - 03.28.24 Patient notified * Telephone Encounter - Vivian Centeno M.A. - 03/23/2023 9:24 AM EST Faxed PA request to [facility] with all documentation documented in this encounter Plan of Treatment Upcoming Encounters Date Type Specialty Care Team Description 10/17/2024 Fibreglass Lay Up Worker Report Abstract, Provider documented as of this encounter Visit Diagnoses Not on filedocumented in this encounter Care Teams Senior Architect Relationship Specialty Start Date End Date Darrel Tony MD [address] [place] [address] PCP - General Internal Medicine 11/22/21 documented as of this encounter
--- OUTSIDE RECORDS SUMMARY | 2024-05-29 12:45 | XMS_ITS | Encounter Summary ---
Author Organization [facility] Address [address] [place] [address] Care Team Providers Care Waste Hand Name Role Phone Colette Anderson MD Primary Care Provider U Darrel Castro MD Primary Care Provider +1 -[phone] Reason for Visit * Reason Onset Date Comments Appointment-Internal Referral 04/05/2018 Encounter Details Date Type Department Care Team Description 04/05/2018 Telephone Adult Medicine B - [place] [address] [place] [address] Colette Anderson MD Appointment-Internal Referral Social History Tobacco Use Types [...] encounter Miscellaneous Notes * Telephone Encounter - Armida Sheets - 04/05/2018 12:17 PM EST We have made several attempts to reach this patient to set up an appointment . At this point we will be removing the patient from the referrals list. Thank You Endocrinology Dept. documented in this encounter Plan of Treatment Upcoming Encounters Date Type Specialty Care Team Description 10/17/2024 Dump Grounds Checker Report Abstract, Provider documented as of this encounter Visit Diagnoses Not on filedocumented in this encounter Care Teams Waste Hand Relationship Specialty Start Date End Date Colette Anderson MD PCP - General Internal Medicine 02/26/1811/06 Darrel Tony MD [address] [place] [address] PCP - General Internal Medicine 11/22/21 documented as of this encounter
--- OUTSIDE RECORDS SUMMARY | 2024-05-29 12:45 | XMS_ITS | Encounter Summary ---
Author Organization [facility] Address [address] [place] [address] Care Team Providers Care Lean Specialist Name Role Phone Darrel Tony MD Primary Care Provider +1 -[phone] Encounter Details Date Type Department Care Team Description 08/16/2022 Pt. Non Urgent Medical Question Adult Medicine [address] [address] Darrel Tony MD [address] [place] [address] Social History Tobacco Use Types Packs/Day Years [...] Type Specialty Care Team Description 10/17/2024 Business Banking Manager Report Abstract, Provider documented as of this encounter Visit Diagnoses Not on filedocumented in this encounter Care Teams Lean Specialist Relationship Specialty Start Date End Date Darrel Tony MD [address] [place] [address] PCP - General Internal Medicine 11/22/21 documented as of this encounter
--- OUTSIDE RECORDS SUMMARY | 2024-05-29 12:45 | XMS_ITS | Encounter Summary ---
Author Organization [facility] Address [address] [place] [address] Care Team Providers Care Lens Polisher Name Role Phone Darrel Tony MD Primary Care Provider +1 -[phone] Encounter Details Date Type Department Care Team Description 08/08/2023 Refill Adult Medicine [address] [address] Darrel Tony MD [address] [place] [address] Social History Tobacco Use Types Packs/Day Years [...] Tartrate 10 Mg Tablet 30 30 Sh Snf [id number] [facility] (1855) 0/0 0.50 [place] 07/10/2023 07/10/2023 1 Oxycodone Hcl (Ir) 10 Mg Tab 42 28 Ka Gun [id number] [facility]vs (4352) 0/0 22.50 [place] 07/06/2023 07/06/2023 1 Gabapentin 600 Mg Tablet 168 28 Pa Sivakumar [id number] [facility]vs (1855) 0/3 4.02 L[place] 06/15/2023 05/16/2023 1 Zolpidem Tartrate 10 Mg Tablet 30 30 Sh Snf [id number] [facility]vs (1855) 0/0 0.50 [place] 06/09/2023 06/09/2023 1 Oxycodone Hcl (Ir) 10 Mg Tab 42 28 Al Jar [id number] [facility]vs (4352) 0/0 22.50 [place] 06/06/2023 06/06/2023 1 Gabapentin 600 Mg Tablet 168 28 Ja Iraj [id number] [facility] (1855) 0/0 4.02 L[place] 05/13/2023 04/05/2023 1 Zolpidem Tartrate 10 Mg Tablet 30 30 Sh Snf [id number] [facility] (1855) 0/0 0.50 [place] 05/13/2023 01/13/2023 1 Gabapentin 600 Mg Tablet 168 28 Ja Iraj [id number] [facility] (1855) 4/4 4.02 [place] 05/12/2023 05/12/2023 1 Oxycodone Hcl (Ir) 10 Mg Tab 42 28 Ka Gun [id number] [facility]vs (4352) 0/0 22.50 [place] 04/19/2023 01/13/2023 1 Gabapentin 600 Mg Tablet 168 28 Ja Iraj [id number] [facility] (1855) 3/4 4.02 L[place] 04/13/2023 04/13/2023 1 Oxycodone Hcl (Ir) 10 Mg Tab 42 28 Ka Gun [id number] [facility]vs (4352) 0/0 22.50 [place] 03/27/2023 03/20/2023 1 Zolpidem Tartrate 10 Mg Tablet 30 30 Je Cam [id number] [facility] (1855) 0/0 0.50 [place] 03/18/2023 01/13/2023 1 Gabapentin 600 Mg Tablet 168 28 Ja Iraj [id number] [facility] (1855) 2/4 4.02 [place] 03/16/2023 03/16/2023 1 Oxycodone Hcl (Ir) 10 Mg Tab 42 28 Ka Gun [id number] [facility] (4352) 0/0 22.50 [place] 02/19/2023 02/17/2023 1 Zolpidem Tartrate 10 Mg Tablet 30 30 [facility] [id number] Cvs (1855) documented in this encounter Plan of Treatment Upcoming Encounters Date Type Specialty Care Team Description 10/17/2024 Film Booker Report Abstract, Provider documented as of this encounter Visit Diagnoses Diagnosis Fibromyalgia Mylagia and myositis, unspecified Other chronic pain documented in this encounter Care Teams Lens Polisher Relationship Specialty Start Date End Date Darrel Tony MD [address] [place] [address] PCP - General Internal Medicine 11/22/21 documented as of this encounter
--- OUTSIDE RECORDS SUMMARY | 2024-05-29 12:45 | XMS_ITS | Encounter Summary ---
Author Organization [facility] Address [address] [place] [address] Care Team Providers Care Etl Lead Name Role Phone Colette Anderson MD Primary Care Provider U Darrel Castro MD Primary Care Provider +1 -[phone] Encounter Details Date Type Department Care Team Description 02/02/2021 Pt. Non Urgent Medical Question Adult Medicine [address] [address] Colette Anderson MD Social History Tobacco Use [...] Date Type Specialty Care Team Description 10/17/2024 Sand Plant Attendant Report Abstract, Provider documented as of this encounter Visit Diagnoses Not on filedocumented in this encounter Care Teams Etl Lead Relationship Specialty Start Date End Date Colette Anderson MD PCP - General Internal Medicine 02/26/1811/06 Darrel Tony MD [address] [place] [address] PCP - General Internal Medicine 11/22/21 documented as of this encounter
--- OUTSIDE RECORDS SUMMARY | 2024-05-29 12:45 | XMS_ITS | Encounter Summary ---
Author Organization [facility] Address [address] [place] [address] Care Team Providers Care Drilling Plant Operator Name Role Phone Darrel Tony MD Primary Care Provider +1 [phone] Reason for Visit * Reason Onset Date Comments Medication 09/28/2023 Encounter Details Date Type Department Care Team Description 09/28/2023 Refill Gastroenterology [address] [place] [phone] Rufus Bernard MD [address] [place] [address] Medication Social History Tobacco Use Types Packs/Day [...] Type Specialty Care Team Description 10/17/2024 Manager Medical Affairs Report Abstract, Provider documented as of this encounter Visit Diagnoses Not on filedocumented in this encounter Care Teams Drilling Plant Operator Relationship Specialty Start Date End Date Darrel Tony MD [address] [place] [address] PCP - General Internal Medicine 11/22/21 documented as of this encounter
--- OUTSIDE RECORDS SUMMARY | 2024-05-29 12:45 | XMS_ITS | Encounter Summary ---
Author Organization [facility] Address [address] [place] [address] Care Team Providers Care Mill Roll Operator Name Role Phone Colette Anderson MD Primary Care Provider U Darrel Castro MD Primary Care Provider +1 [phone] Encounter Details Date Type Department Care Team Description 01/13/2021 Pt. Non Urgent Medical Question Adult Medicine B - [address] [address] Trish Hyatt PA-C [address] [place] [address] Type 2 diabetes mellitus with microalbuminuria, with [...] [place] L.P.N. - 01/13/2021 4:58 PM EST [phone] (home) [phone] (work) Phone states not accepting any phone [...] Date Type Specialty Care Team Description 10/17/2024 Swimming Professor Report Abstract, Provider documented as of this encounter Visit Diagnoses Diagnosis Type 2 diabetes mellitus with microalbuminuria, with long-term current use of insulin (HCC) documented in this encounter Care Teams Mill Roll Operator Relationship Specialty Start Date End Date Colette Anderson MD PCP - General Internal Medicine 02/26/1811/06 Darrel Tony MD [address] [place] [address] PCP - General Internal Medicine 11/22/21 documented as of this encounter
--- OUTSIDE RECORDS SUMMARY | 2024-05-29 12:45 | XMS_ITS | Encounter Summary ---
Author Organization [facility] Address [address] [place] [address] Care Team Providers Care Inventory Taker Name Role Phone Xenia Morfin MD Primary Care Provider Manoj Casas MD Primary Care Provider Un available Darrel Tony MD Primary Care Provider +1 [phone] [facility], Pcp Primary Care Provider UnavailStefan Beatty Primary Care Provider Unav ailable Colette Anderson MD Primary Care Provider U navailDarrel Dugan MD Primary Care Provider +1 -[phone] Reason for Visit * Reason Onset Date Comments Emg 05/18/2015 Encounter Details Date Type Department Care Team Description 05/18/2015 Telephone Physiatry - [address] [address] Leona Mays MD [address] [place] [address] [place] [address] Emg Social History Tobacco Use Types Packs/Day [...] Date Type Specialty Care Team Description 10/17/2024 Recruitment Coordinator Report Abstract, Provider documented as of this encounter Visit Diagnoses Not on filedocumented in this encounter Care Teams Inventory Taker Relationship Specialty Start Date End Date Xenia Morfin MD PCP - General Internal Medicine 11/20/14 09/01/15 Manoj Ragland MD PCP - General Internal Medicine 09/02/15 Darrel Tony MD [address] [place] [address] PCP - General Internal Medicine 02/18/16 07/05/16 [facility], [address] [address] PCP - General Internal Medicine 07/06/16 11/13/17 Stefan Johnson [address] [place] [address] PCP - General Internal Medicine 11/14/17 02/25/18 Colette Anderson MD [address] [place] [address] PCP - General Internal Medicine 02/26/18 11/21/21 Darrel Tony MD [address] [place] [address] PCP - General Internal Medicine 11/22/21 documented as of this encounter
--- OUTSIDE RECORDS SUMMARY | 2024-05-29 12:45 | XMS_ITS | Data Portability ---
Author Organization [place] [facility] Address [address] [place] [address] Care Team Providers Care Manufacturer'S Service Representative Name Role Phone [facility] Primary Care Provi nahum HIM CCA OTHER Assessment No assessment recorded. Plan of Treatment Reminders Order Date Submit Date Provider Last Modified By Organization Details Last Modified Time Details Appointments None recorded. Lab BMP, serum or plasma [address], [address] [place] [address], [phone] 5 13:22:39 rapid SARS CoV 2 Ag, QL IA, respiratory specimen [address] [place] [address], [phone] 5 13:22:39 rapid flu (A+B) [address] [place] [address], [address] 5 13:22:39 Referral None recorded. Procedures None recorded. Surgeries None recorded. Imaging None recorded. Medication Orders ondansetron 4 mg disintegrat ing tablet 2024 [facility] #[id number], [address] [place], [address], 5 12:41:16 Patient TargetsNo targets recorded. Patient [...] Name and Address Organization Details Recorded Time 40229 trazodone medicatio n Not available Not available Not available 03/19/2024 20068 RxNorm Not Available [facility] 5 10:04:02 36409 tramadol medicatio n Not available Not available Not available 03/19/2024 36406 RxNorm Not Available [facility] 5 10:04:02 Medications Name Sig Start Date [...] Address Organization Details Last Updated DateTime 5 346011. 816 g 175.26 cm 97.9 [degF] 100 [...] SNOMED-CT Code Diagnosis ICD10 Code Diagnosis Note 30781 Sushma Sanchez MD Main - [address] [phone] 03/19/2024 12:19:53 03/19/2024 17:52:46 Nausea and vomiting [id number] R11.2 Evaluation in the field was performed by my rheumatology specialist colleague, as noted above, I provided real-time [...] course of cephalexin 1 wk ago. On rheumatology specialist eval VS wnl, exam unremarkab le. POC [...] Claros Member ID Guarantor Name 03/19/2024 1 [facility] - DOS ON OR AFTER 2022 - DUAL ELIGIBLE - [employer] OPTIONS AND ONE CARE (MEDICARE REPLACEMENT/ADV ANTAGE - HMO) Galina Doyle [id number] Galina Doyle Notes Date Note Type Note [...] Allergies Reviewed at 03/19/2024 - 10:04 Comments: Contact Officer verified the name//address and phone number. Pt [...] s/s and seek emergency treatment if needed Fur Operator Organization Information for Abel Ron Business Legal Name: [facility] Address: [address] [place] [address], BENITA Cisneros [address], Recruiter Coordinator: Vito FITZGERALDIA No.: [id number] Fur Operator POC Test Results from Abel [facility] (12:25:05) pH: 7.38 pH units [...] .................... .................... .................... .................... .................... .................... . Fur Operator Note From Abel Ron: This 58-year-old [...] .................... .................... .................... .................... .................... .................... . [place] Consulted: Sushma Sanchez .................... .................... .................... .................... .................... .................... .................... . Disposition: Fulfilled Sushma Sanchez MD [address] [place] [address],[address] [facility], [place], [address], MILEY HATCH 03/19/2024 13:23:04 OBGyn Episode No OBEpisode recorded.
--- OUTSIDE RECORDS SUMMARY | 2024-05-29 12:45 | XMS_ITS | Clinical Summary ---
Author Organization [place] [address] [address] [facility] Address [address] [facility] [address] Phone Care Team Providers Care Inspector Experimental Assembly Name Role Phone Darrel Tony MD Primary Care Provider [phone] -[phone] Allergies Active Allergy Reactions Criticality Noted Date [...] FOOD 60 tablet 5 04/23/19 25 Active hydroCHLOROthia zide (HYDRODIURIL) 50 mg tablet Take 1 tablet (50 mg total) by mouth 1 (one) time each day. 90 tablet 04/25/19 25 Active oxyCODONE (ROXICODONE) 10 mg immediate release tablet Take 0.5 tablets (5 mg total) by mouth every 8 (eight) hours if needed for severe pain for up to 28 days. Max Daily Amount: 15 mg 42 tablet 05/09/19 25 025 Active insulin glargine (LANTUS SoloStar) 100 unit/mL (3 mL) injection pen INJECT 45 UNITS INTO THE SKIN AT BEDTIME OR DIRECTED 45 mL 5 05/16/19 25 Active lisinopriL (PRINIVIL,ZESTR IL) 20 mg tablet Take 1 tablet (20 mg total) by mouth 1 (one) time each day. 28 tablet 1 05/22/19 25 Active NON FORMULARY Na Sulfate-K Sulfate-Mg Sulf (Suprep Bowel Prep Kit) 17.5-3.13-1.6 GM/177ML Solution---Take 177 mL by mouth See Admin Instructions for 2 doses. - Oral 025 Discontin ued(Thera py completed ) insulin glargine (LANTUS SoloStar) 100 unit/mL (3 mL) injection pen INJECT 65 UNITS INTO THE SKIN AT BEDTIME OR DIRECTED 025 Discontin ued(Reord er) oxyCODONE (ROXICODONE) 10 mg immediate release tablet Take 0.5 tablets (5 mg total) by mouth every 8 (eight) hours if needed for severe pain for up to 28 days. Max Daily Amount: 15 mg 42 tablet 04/09/19 25 025 Discontin ued(Reord er) lisinopriL (PRINIVIL,ZESTR IL) 20 mg tablet Take 1 tablet (20 mg total) by mouth 1 (one) time each day. 28 tablet 1 04/23/19 25 025 Discontin ued(Thera py completed ) Active Problems Problem Noted Date Diagnosed Date CKD (chronic kidney disease) stage 2, GFR 60-89 ml/min 12/12/2023 Essential hypertension, benign 11/08/2023 Morbid obesity ([facility] V24, [facility] V28) 2023 Discoid lupus 11/08/2023 Esophageal reflux 11/08/2023 Systemic lupus erythematosus ([facility] V24, [facility] V28) 11/08/2023 Depression, major 11/08/2023 Fibromyalgia 11/08/2023 Carpal tunnel syndrome, bilateral 11/08/2023 Type 2 diabetes mellitus, wi th long-term current use of insulin ([facility] V24, [facility] V28) 11/08/2023 Adrenal adenoma, left 11/08/2023 Type 2 diabetes mellitus wit h microalbuminuria, with long-term current use of insulin ([facility] V24, [facility] V28) 11/08/2023 Microalbuminuria 11/08/2023 Lupus anticoagulant positive 11/08/2023 Vitamin D deficiency 11/08/2023 Diabetic polyneuropathy asso ciated with type 2 diabetes mellitus ([facility] V24, [facility] V28) 11/08/2023 Other chronic pain 11/08/2023 Pancreatitis 11/08/2023 Primary osteoarthritis of right knee 11/08/2023 Encounters Date Type Department Care Team Description 05/17/2024 [facility] [address] [place] [address] Darrel Tony MD Faxed Order ([facility] ) 05/15/2024 11:00 AM EDT Office Visit Endocrinology [address] [address] Trish Hyatt PA Type 2 diabetes mellitus with other specified complication, with long-term current use of insulin ([facility] V24, [facility] V28) (Primary Dx) 05/10/2024 [facility] [phone] Darrel Tony MD DME Request ( Mel ) 04/30/2024 [facility] [address] [place] [address] Darrel Tony MD Med Refill 04/24/2024 [facility] [address] [phone] Darrel Tony MD Forms/questionnaires ([employer]) 04/24/[address] [phone] Darrel Tony MD Forms/questionnaires ([employer]) 04/16/[address] [phone] Darrel Tony MD Request For Order(s) ([facility]) 03/27/[address] [phone] Darrel Tony MD Faxed Order ([facility] ) 03/26/2024 [facility] [address] [phone] Darrel Tony MD faxed order 03/19/[address] [phone] Darrel Tony MD Chest Pain; GI Problem 02/29/2024 [facility] [address] [phone] Darrel Tony MD Faxed Order ([facility] [...] CHOLECYSTECTOMY 1998 PROCEDURE: LAPAROSCOPY, CHOLECYSTECTOMY SECTION PROCEDURE: NE DELIVERY ONLY; COMMENT: X4 TUBAL LIGATION PROCEDURE: HISTORICAL TUBAL LIGATION CHOLECYSTECTOMY PROCEDURE: NE LAPAROSCOPY SURG CHOLECYSTECTOMY Medical History Medical History Date Comments Other pulmonary embolism and infarction 1998 DX:Other pulmonary embolism and infarction 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; COMMENT: scalp, arms; + biopsy 11/2005 Systemic lupus erythematosus ([facility] V24, [facility] V28) 09/01/2006 DX:Systemic lupus erythemato espinoza (HCC); COMMENT: DISCOID LESIONS, SUB-ACUTE SKIN LESIONS ARTHRALGIAS, MILD PROTEINURIA + Anti-DNA, Anti-ESTIMATOR PRINTING PLATE MAKING, Anti-Sm, SS-A Esophageal reflux DX:Esophageal reflux Essential hypertension, benign 05/30/2005 D X:Essential hypertension, benign Obesity DX:Obesity 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 D X: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 Type 2 diabetes mellitus ([facility] V24, [facility] V28) 03/01/2018 DX:Type 2 diabetes mellitus ([facility]) Vitamin D deficiency 11/14/2019 DX:Vitamin [...] 05/15/2024 11:20 AM EDT Plan of Treatment Upcoming Encounters Date Type Department Care Team (Late st Contact Info) Description 06/26/2024 11:15 AM EDT Office Visit Internal Medicine - [address] [phone] Lu Chamberlain NP [address] [place] [address] 08/28/2024 11:00 AM EDT Office Visit Endocrinology - [address] [phone] Trish Hyatt PA [address] [place] [address] Health Maintenance Due Date Last Done Comments [...] RESULTING AGENCY - 05/08/2023 2:56 PM EDT [id number] THINPREP PAP, IMAGED: NEGATIVE FOR SQUAMOUS INTRAEPITHELIAL [...] us Jackeline SCHWARZ [facility] CYTOLOGY ORDERABLES Jadyn whitfield Result HISTORICAL [...] ID:[id number] Group ID:[id number] Type:Not on file Address: [place] [address] [address] [address] Care Teams Inspector Experimental Assembly Relationship Specialty Start Date End Date Darrel Tony MD [address] [place] [address] PCP - General Internal Medicine 11/22/21
--- OUTSIDE RECORDS SUMMARY | 2024-05-29 12:45 | XMS_ITS | Encounter Summary ---
Author Organization [facility] Address [address] [place] [address] Care Team Providers Care Dev Technical Mgr Name Role Phone Xenia Morfin MD Primary Care Provider Manoj Casas MD Primary Care Provider Un available Darrel Tony MD Primary Care Provider [phone] -[phone] [facility] Primary Care Provider Stefan Regalado Primary Care Provider Unav ailable Colette Anderson MD Primary Care Provider U navailDarrel Dugan MD Primary Care Provider +1 -[phone] Reason for Visit * Reason Onset Date Comments Appointment-Self Referral 06/24/2015 Encounter Details Date Type Department Care Team Description 06/24/2015 [facility]phone [facility] [address] [place] [address] Charley Dias OD Appointment-Self Referral Social History [...] Lopez for 07/23/2015 at 03:00pm at the [place]. documented in this encounter Plan of Treatment Upcoming Encounters Date Type Specialty Care Team Description 10/17/2024 Petroleum Refining Equipment Operator Report Abstract, Provider documented as of this encounter Visit Diagnoses Not on filedocumented in this encounter Care Teams Dev Technical Mgr Relationship Specialty Start Date End Date Xenia Morfin MD PCP - General Internal Medicine 11/20/14 09/01/15 Manoj Ragland MD PCP - General Internal Medicine 09/02/15 Darrel Tony MD [address] [place] [address] PCP - General Internal Medicine 02/18/16 07/05/16 [facility] [address] [place] [address] PCP - General Internal Medicine 07/06/16 11/13/17 Stefan Johnson [address] [place] [address] PCP - General Internal Medicine 11/14/17 02/25/18 Colette Anderson MD [address] [place] [address] PCP - General Internal Medicine 02/26/18 11/21/21 Darrel Tony MD [address] [place] [address] PCP - General Internal Medicine 11/22/21 documented as of this encounter
--- OUTSIDE RECORDS SUMMARY | 2024-05-29 12:45 | XMS_ITS | Encounter Summary ---
Author Organization [facility] Address [address] [place] [address] Care Team Providers Care Import Dispatcher Name Role Phone Darrel Tony MD Primary Care Provider [phone] [phone] Encounter Details Date Type Department Care Team Description 10/16/2023 Orders Only Medical Records [address] [place] [address] Rufus Bernard MD [address] [place] [address] Social History Tobacco Use Types Packs/Day Years [...] as of this encounter Progress Notes * Macaroi Bernard MD - 11/11/2023 11:08 AM EDT [...] Certified Gastroenterology and Internal Medicine Transplant Hepatology [facility] documented in this encounter Plan of Treatment Upcoming Encounters Date Type Specialty Care Team Description 10/17/2024 Trading Manager Report Abstract, Provider documented as of this encounter Procedures Procedure Name Priority Date/Time Associated Diagnosis Comments OUTSIDE PATHOLOGY Routine 10/12/2023 documented in this encounter Results * OUTSIDE PATHOLOGY (10/12/2023) Rufus Bernard MD OUTSIDE LAB documented in this encounter Visit Diagnoses Not on filedocumented in this encounter Care Teams Import Dispatcher Relationship Specialty Start Date End Date Darrel Tony MD [address] [place] [address] PCP - General Internal Medicine 11/22/21 documented as of this encounter
--- OUTSIDE RECORDS SUMMARY | 2024-05-29 12:45 | XMS_ITS | Encounter Summary ---
Author Organization [facility] Address [address] [place] [address] Care Team Providers Care Crepe Machine Operator Name Role Phone Darrel Tony MD Primary Care Provider +1 -[phone] Encounter Details Date Type Department Care Team Description 07/05/2023 Orders Only Medical Records [address] [place], [place] [address] [place] [address] [facility] Social History Tobacco Use [...] Type Specialty Care Team Description 10/17/2024 Roll Off Driver Report Abstract, Provider documented as of this encounter Procedures Procedure Name Priority Date/Time Associated Diagnosis Comments OUTSIDE EYE EXAM Routine 06/26/2023 documented in this encounter Results * OUTSIDE EYE EXAM (06/26/2023) [facility] PROCEDURES documented in this encounter Visit Diagnoses Not on filedocumented in this encounter Care Teams Crepe Machine Operator Relationship Specialty Start Date End Date Darrel Tony MD [address] [place] [address] PCP - General Internal Medicine 11/22/21 documented as of this encounter
--- OUTSIDE RECORDS SUMMARY | 2024-05-29 12:45 | XMS_ITS | Encounter Summary ---
Author Organization [facility] Address [address] [place] [address] Care Team Providers Care Senior Informatica Etl Developer Name Role Phone Darrel Tony MD Primary Care Provider [phone] [phone] Encounter Details Date Type Department Care Team Description 09/07/2023 Refill [facility] [address] [facility] [address] [place] [phone] Thuy Pennington PAGurdeepC [address] [facility] [address] [place] [address] Social History Tobacco Use Types Packs/Day Years [...] Specialty Care Team Description 10/17/2024 Child Care Cook Report Abstract, Provider documented as of this encounter Visit Diagnoses Not on filedocumented in this encounter Care Teams Senior Informatica Etl Developer Relationship Specialty Start Date End Date Darrel Tony MD [address] [place] [address] PCP - General Internal Medicine 11/22/21 documented as of this encounter
--- OUTSIDE RECORDS SUMMARY | 2024-05-29 12:45 | XMS_ITS | Encounter Summary ---
Author Organization [facility] Address [address] [place] [address] Care Team Providers Care Tank Builder Supervisor Name Role Phone Darrel Tony MD Primary Care Provider +1 -[phone] Reason for Visit * Reason Onset Date Comments refill request 05/15/2023 Encounter Details Date Type Department Care Team Description 05/15/2023 Telephone Adult Medicine [address] [address] Darrel Tony MD [address] [place] [address] refill request Social History Tobacco Use Types [...] April 12. * Telephone Encounter - Marcie aDvenport M.A. - 05/16/2023 12:58 PM EDT Date [...] N/A Patients current insurance carrier is: Payor: [employer] MCR / Plan: [facility] / Product Type: HMO [id number] documented in this encounter Plan of Treatment Upcoming Encounters Date Type Specialty Care Team Description 10/17/2024 Wheel And Caster Repairer Report Abstract, Provider documented as of this encounter Visit Diagnoses Not on filedocumented in this encounter Care Teams Tank Builder Supervisor Relationship Specialty Start Date End Date Darrel Tony MD [address] [place] [address] PCP - General Internal Medicine 11/22/21 documented as of this encounter
--- OUTSIDE RECORDS SUMMARY | 2024-05-29 12:45 | XMS_ITS | Encounter Summary ---
Author Organization [facility] Address [address] [place] [address] Care Team Providers Care Nutritional Services Director Name Role Phone Colette Anderson MD Primary Care Provider U Darrel Castro MD Primary Care Provider +1 -[phone] Encounter Details Date Type Department Care Team Description 03/02/2020 Orders Only Medical Records [address] [place] [address] Abstract, Provider Social History Tobacco Use Types [...] Date Type Specialty Care Team Description 10/17/2024 Ice Cream Freezer Report Abstract, Provider documented as of this encounter Visit Diagnoses Not on filedocumented in this encounter Care Teams Nutritional Services Director Relationship Specialty Start Date End Date Colette Anderson MD PCP - General Internal Medicine 02/26/1811/06 Darrel Tony MD [address] [place] [address] [id number] PCP - General Internal Medicine 11/22/21 documented as of this encounter
--- OUTSIDE RECORDS SUMMARY | 2024-05-29 12:45 | XMS_ITS | Encounter Summary ---
Author Organization [facility] Address [address] [place] [address] Care Team Providers Care Qi Specialist Name Role Phone Stefan Johnson Primary Care Provider Unav ailable Colette Anderson MD Primary Care Provider U rosarioailDarrel Dugan MD Primary Care Provider +1 -[phone] Encounter Details Date Type Department Care Team Description 11/17/2017 Release of Information Medical Records [address] [place] [address] Abstract, Provider Social History Tobacco Use Types [...] Date Type Specialty Care Team Description 10/17/2024 Email Operations Manager Report Abstract, Provider documented as of this encounter Visit Diagnoses Not on filedocumented in this encounter Care Teams Qi Specialist Relationship Specialty Start Date End Date Stefan Johnson PCP - General Internal Medicine 11/14/17 02/25/18 Colette Anderson MD PCP - General Internal Medicine 02/26/1811/06 Darrel Tony MD [address] [place] [address] PCP - General Internal Medicine 11/22/21 documented as of this encounter
--- OUTSIDE RECORDS SUMMARY | 2024-05-29 12:45 | XMS_ITS | Encounter Summary ---
Author Organization [facility] Address [address] [place] [address] Care Team Providers Care Payroll Secretary Name Role Phone Darrel Tony MD Primary Care Provider +1 -[phone] Encounter Details Date Type Department Care Team Description 08/27/2022 CGM Report Medical Records [address] [place] [address] Abstract, Provider Social History Tobacco Use Types [...] Date Type Specialty Care Team Description 10/17/2024 Head Golf Coach Report Abstract, Provider documented as of this encounter Visit Diagnoses Not on filedocumented in this encounter Care Teams Payroll Secretary Relationship Specialty Start Date End Date Darrel Tony MD [address] [place] [address] PCP - General Internal Medicine 11/22/21 documented as of this encounter
--- OUTSIDE RECORDS SUMMARY | 2024-05-29 12:45 | XMS_ITS | Encounter Summary ---
Author Organization [facility] Address [address] [place] [address] Care Team Providers Care Application Security Developer Name Role Phone Darrel Tony MD Primary Care Provider +1 -[phone] Reason for Visit * Reason Onset Date Comments refill request 09/11/2022 Encounter Details Date Type Department Care Team Description 09/11/2022 Refill Internal Medicine - [place] [address] [facility], [address] [place] [address] Darrel Tony MD [address] [place] [address] refill request Social History Tobacco Use Types [...] Zolpidem Tartrate 10 Mg Tablet 30 30 [facility] [id number] [facility] (1855) 0/0 0.50 LME Medicaid [place] 08/24/2022 08/24/2022 2 Gabapentin 600 Mg Tablet 168 28 [facility] [id number] Cvs (1855) 0/2 4.02 [place] 08/15/2022 08/15/2022 2 Oxycodone Hcl (Ir) 10 Mg Tab 42 28 Ka Gun [id number] [facility] (1855) 0/0 22.50 [place] 07/29/2022 2022 2 Gabapentin 600 Mg Tablet 168 28 [facility] [id number] C[facility] (1855) 0/1 4.02 L[place] 07/29/2022 06/13/2022 2 Zolpidem Tartrate 10 Mg Tablet 28 28 [facility] [id number] C[facility] (1855) 0/0 0.50 [place] 07/15/2022 07/15/2022 2 Oxycodone Hcl (Ir) 10 Mg Tab 42 14 Ka [facility] [id number] Cvs (1855) 0/0 45.00 [place] 06/24/2022 2022 1 * Telephone Encounter - Gayle Gandara - 09/13/2022 9:36 AM EDT [facility] stating [facility] [address] [facility] not [facility], asking if [facility] can be sent [facility] [address] (Listed below) * Telephone Encounter - Marcie [...] Zolpidem Tartrate 10 Mg Tablet 30 30 [facility] [id number] [facility] (1855) 0/0 0.50 LME Medicaid [place] 08/24/2022 08/24/2022 2 Gabapentin 600 Mg Tablet 168 28 [facility] [id number] C[facility] (1855) 0/2 4.02 LME Medicaid [place] 08/15/2022 08/15/2022 2 Oxycodone Hcl (Ir) 10 Mg Tab 42 28 Ka Gun [id number] [facility] (1855) 0/0 22.50 MME Medicaid [place] 07/29/2022 2022 2 Gabapentin 600 Mg Tablet 168 28 [facility] [id number] [facility] (1855) 0/1 4.02 LME Medicaid [place] 07/29/2022 06/13/2022 2 Zolpidem Tartrate 10 Mg Tablet 28 28 [facility] [id number] Cvs (1855) 0/0 0.50 LME [place] 07/15/2022 07/15/2022 2 Oxycodone Hcl (Ir) 10 Mg Tab 42 14 Ka Gun [id number] [facility] (1855) 0/0 45.00 MME [place] 06/24/2022 2022 1 Gabapentin 600 Mg Tablet 180 30 [facility] [id number] Cvs (2668) 2/3 4.02 LME [place] 06/22/2022 05/02/2022 1 Zolpidem Tartrate 10 Mg Tablet [address] [facility] [id number] Cvs (1855) 0/0 0.50 LME [place] 06/13/2022 06/13/2022 1 Oxycodone Hcl (Ir) 5 Mg Tablet 84 28 Ka Gun [id number] [facility] (1855) 0/0 22.50 MME Medicaid [place] 05/23/2022 03/07/2022 1 Zolpidem Tartrate 10 Mg Tablet 30 30 Je Cam [id number] [facility] (1855) 1/1 0.50 L[place] 05/21/2022 2022 1 Gabapentin 600 Mg Tablet 180 30 Ja Iraj [id number] [facility] (7608) 1/3 4.02 LME [place] 05/12/2022 05/12/2022 1 Oxycodone Hcl (Ir) 5 Mg Tablet 84 28 Al Jar [id number] [facility] (1855) 0/0 22.50 M[place] 04/25/2022 04/25/2022 1 Zolpidem Tartrate 10 Mg Tablet 30 30 Je Cam [id number] [facility] (1855) 0/0 0.50 LME Medicaid [place] 2022 2022 1 Gabapentin 600 Mg Tablet 180 30 Ja Iraj [id number] Cvs (7608) 0/3 4.02 LM documented in this encounter Plan of Treatment Upcoming Encounters Date Type Specialty Care Team Description 10/17/2024 Cardiovascular Surgical Tech Report Abstract, Provider documented as of this encounter Visit Diagnoses Not on filedocumented in this encounter Care Teams Application Security Developer Relationship Specialty Start Date End Date Darrel Tony MD [address] [place] [address] PCP - General Internal Medicine 11/22/21 documented as of this encounter
--- OUTSIDE RECORDS SUMMARY | 2024-05-29 12:45 | XMS_ITS | Encounter Summary ---
Author Organization [facility] Address [address] [place] [address] Care Team Providers Care Paving Crew Foreman Name Role Phone Colette Anderson MD Primary Care Provider U Darrel Castro MD Primary Care Provider +1 -[phone] Encounter Details Date Type Department Care Team Description 11/23/2020 Pt. Non Urgent Medical Question Rheumatology - [address] [address] Hany Garcia PA Social History Tobacco Use [...] Date Type Specialty Care Team Description 10/17/2024 Instructional Support Technician Report Abstract, Provider documented as of this encounter Visit Diagnoses Not on filedocumented in this encounter Care Teams Paving Crew Foreman Relationship Specialty Start Date End Date Colette Anderson MD PCP - General Internal Medicine 02/26/1811/06 Darrel Tony MD [address] [place] [address] PCP - General Internal Medicine 11/22/21 documented as of this encounter
--- OUTSIDE RECORDS SUMMARY | 2024-05-29 12:45 | XMS_ITS | Encounter Summary ---
Author Organization [facility] Address [address] [place] [address] Care Team Providers Care Bomb Loader Name Role Phone Darrel Tony MD Primary Care Provider +1 -[phone] Reason for Visit * Reason Onset Date Comments Medication 09/26/2022 Encounter Details Date Type Department Care Team Description 09/26/2022 Refill Gastroenterology [address] [place] [id number] Rufus Bernard MD [address] [place] [address] Medication Social History Tobacco Use Types Packs/Day [...] Date Type Specialty Care Team Description 10/17/2024 Bullet Slug Casting Machine Operator Report Abstract, Provider documented as of this encounter Visit Diagnoses Not on filedocumented in this encounter Care Teams Bomb Loader Relationship Specialty Start Date End Date Darrel Tony MD [address] [place] [address] [place] [address] PCP - General Internal Medicine 11/22/21 documented as of this encounter
--- OUTSIDE RECORDS SUMMARY | 2024-05-29 12:45 | XMS_ITS | Encounter Summary ---
Author Organization [facility] Address [address] [place] [address] Care Team Providers Care Rejogger Name Role Phone Darrel Tony MD Primary Care Provider +1 -[phone] Reason for Visit * Reason Onset Date Comments Faxed Refill 09/04/2023 Encounter Details Date Type Department Care Team Description 09/04/2023 Refill Adult Medicine [address] [address] Darrel Tony MD [address] [place] [address] Faxed Refill Social History Tobacco Use Types [...] ?? Patients current insurance carrier is: Payor: [employer] MCR / Plan: [facility] / Product Type: HMO [id number] ? documented in this encounter Plan of Treatment Upcoming Encounters Date Type Specialty Care Team Description 10/17/2024 Market Master Report Abstract, Provider documented as of this encounter Visit Diagnoses Diagnosis Vitamin D deficiency Unspecified vitamin D deficiency documented in this encounter Care Teams Rejogger Relationship Specialty Start Date End Date Darrel Tony MD [address] [place] [address] PCP - General Internal Medicine 11/22/21 documented as of this encounter
--- OUTSIDE RECORDS SUMMARY | 2024-05-29 12:45 | XMS_ITS | Encounter Summary ---
Author Organization [facility] Address [address] [place] [address] Care Team Providers Care Granulator Tender Name Role Phone Darrel Tony MD Primary Care Provider +1 -[phone] Encounter Details Date Type Department Care Team Description 09/07/2023 Refill Adult Medicine [facility] [address] [place] [address] Darrel Tony MD [address] [place] [address] Social History Tobacco Use Types Packs/Day Years [...] # Dispenser Refill Daily Dose* Pymt Type MARINE EQUIPMENT DESIGN ENGINEER 08/13/2023 08/04/2023 08/13/2023 1 Zolpidem Tartrate 10 Mg Tablet 28 28 [facility] [id number] Cvs (1855) 0/0 0.50 LME Medicare [place] 08/08/2023 08/08/2023 08/09/2023 1 Oxycodone Hcl (Ir) 10 Mg Tab 42 28 Ka Gun [id number] Cvs (4352) 0/0 22.50 MME Medicare [place] 08/04/2023 07/06/2023 08/13/2023 1 Gabapentin 600 Mg Tablet 168 28 Pa Sivakumar [id number] Cvs (1855) 1/3 4.02 LME [place] 07/16/2023 06/29/2023 07/17/2023 1 Zolpidem Tartrate 10 Mg Tablet 30 30 [facility] [id number] Cvs (1855) 0/0 0.50 LME [place] 07/10/2023 07/10/2023 07/10/2023 1 Oxycodone Hcl (Ir) 10 Mg Tab 42 28 Ka Gun [id number] Cvs (4352) 0/0 22.50 MME [place] 07/06/2023 07/06/2023 07/17/2023 1 Gabapentin 600 Mg Tablet 168 28 Pa Sivakumar [id number] Cvs (1855) 0/3 4.02 LME [place] 06/15/2023 05/16/2023 06/19/2023 1 Zolpidem Tartrate 10 Mg Tablet 30 30 [facility] [id number] Cvs (1855) 0/0 0.50 LME [place] 06/09/2023 06/09/2023 06/10/2023 1 Oxycodone Hcl (Ir) 10 Mg Tab 42 28 Al Jar [id number] Cvs (4352) 0/0 22.50 MME [place] 06/06/2023 06/06/2023 06/19/2023 1 Gabapentin 600 Mg Tablet 168 28 Ja Iraj [id number] Cvs (1855) 0/0 4.02 LME [place] 05/13/2023 01/13/2023 05/19/2023 1 Gabapentin 600 Mg Tablet 168 28 Ja Iraj [id number] Cvs (1855) 4/4 4.02 LME [place] 05/13/2023 04/05/2023 05/19/2023 1 Zolpidem Tartrate 10 Mg Tablet 30 30 [facility] [id number] Cvs (1855) 0/0 0.50 L[place] 05/12/2023 05/12/2023 05/12/2023 1 Oxycodone Hcl (Ir) 10 Mg Tab 42 28 Ka Gun [id number] Cvs (4352) 0/0 22.50 MME [place] 04/19/2023 01/13/2023 04/21/2023 1 Gabapentin 600 Mg Tablet 168 28 Ja Iraj [id number] Cvs (1855) 3/4 4.02 LME [place] 04/13/2023 04/13/2023 04/14/2023 1 Oxycodone Hcl (Ir) 10 Mg Tab 42 28 Ka Gun [id number] Cvs (4352) 0/0 22.50 MME [place] 03/27/2023 03/20/2023 04/02/2023 1 Zolpidem Tartrate 10 Mg Tablet 30 30 Cam [id number] Cvs (1855) 0/0 0.50 LME Medicare [place] documented in this encounter Plan of Treatment Upcoming Encounters Date Type Specialty Care Team Description 10/17/2024 Underwear Welter Report Abstract, Provider documented as of this encounter Visit Diagnoses Diagnosis Fibromyalgia Mylagia and myositis, unspecified Other chronic pain documented in this encounter Care Teams Granulator Tender Relationship Specialty Start Date End Date Darrel Tony MD [address] [place] [address] PCP - General Internal Medicine 11/22/21 documented as of this encounter
--- OUTSIDE RECORDS SUMMARY | 2024-05-29 12:45 | XMS_ITS | Encounter Summary ---
Author Organization [facility] Address [address] [place] [address] Care Team Providers Care Analytics Architect Name Role Phone Colette Anderson MD Primary Care Provider U Darrel Castro MD Primary Care Provider +1 -[phone] Encounter Details Date Type Department Care Team Description 01/06/2021 PNO Controlled Substance Contract Medical Records [address] [place] [address] Abstract, Provider Social History Tobacco Use Types [...] Type Specialty Care Team Description 10/17/2024 Scale Assembly Set Up Worker Report Abstract, Provider documented as of this encounter Visit Diagnoses Not on filedocumented in this encounter Care Teams Analytics Architect Relationship Specialty Start Date End Date Colette Anderson MD PCP - General Internal Medicine 02/26/1811/06 Darrel Tony MD [address] [place] [address] PCP - General Internal Medicine 11/22/21 documented as of this encounter
--- OUTSIDE RECORDS SUMMARY | 2024-05-29 12:45 | XMS_ITS | Encounter Summary ---
Author Organization [facility] Address [address] [place] [address] Care Team Providers Care Communication Assistant Name Role Phone Colette Anderson MD Primary Care Provider U Darrel Castro MD Primary Care Provider +1 -[phone] Reason for Visit * Reason Onset Date Comments Faxed Refill 02/27/2020 Encounter Details Date Type Department Care Team Description 02/27/2020 Refill Adult Medicine - [place] [address] [place] [address] Colette Anderson MD Faxed Refill Social History [...] Payor: [employer] / Plan: POS $20/30 JULIANNE [facility] [id number] [facility] / Product Type: POS [id number]-[id number] documented in this encounter Plan of Treatment Upcoming Encounters Date Type Specialty Care Team Description 10/17/2024 Quality Eng Report Abstract, Provider documented as of this encounter Visit Diagnoses Not on filedocumented in this encounter Care Teams Communication Assistant Relationship Specialty Start Date End Date Colette Anderson MD PCP - General Internal Medicine 02/26/1811/06 Darrel Tony MD [address] [place] [address] PCP - General Internal Medicine 11/22/21 documented as of this encounter
--- OUTSIDE RECORDS SUMMARY | 2024-05-29 12:45 | XMS_ITS | Encounter Summary ---
Author Organization [facility] Address [address] [place] [address] Care Team Providers Care Curing Pickling Packer Name Role Phone Colette Anderson MD Primary Care Provider U Darrel Castro MD Primary Care Provider +1 -[phone] Reason for Referral * Non APRIL (Urgent) - Authorized/Booked Specialty Diagnoses / Procedures Referred By Contact Referred To Contact Obstetrics/Gynecology / Obstetrics & Gynecology Diagnoses Vaginal discharge Procedures REFERRAL TO OBSTETRICS & GYNECOLOGY Colette Anderson MD [address] [place] [address] [address] [address] [address] Referral ID Status Reason Start Date Expiration Date V isits Requested Visits Authorized [id number] Authorized/B ooked 04/13/2018 04/13/2019 1 1 Reason for Visit * Reason Onset Date Comments TEST RESULTS 04/13/2018 Encounter Details Date Type Department Care Team Description 04/13/2018 Telephone Adult Medicine [facility] [address] [place], [place] [id number] Colette Anderson MD TEST RESULTS Social History [...] PM EST Pt request urgent referral for Neckties Painter * Telephone Encounter - Colette Jennings MD - 04/13/2018 3:42 PM EST Needs urgent appointment with Neckties Painter as she may have another type of vaginal infection. Leila would have been cleared by diflucan. Therefore have her see her sales counselor. Will refer if she does not have [...] Type Specialty Care Team Description 10/17/2024 Supervisor Engine Assembly Report Abstract, Provider documented as of this encounter Visit Diagnoses Diagnosis Vaginal discharge- Primary Leukorrhea, not specified as infective documented in this encounter Care Teams Curing Pickling Packer Relationship Specialty Start Date End Date Colette Anderson MD PCP - General Internal Medicine 02/26/1811/06 Darrel Tony MD [address] [place] [address] PCP - General Internal Medicine 11/22/21 documented as of this encounter
--- OUTSIDE RECORDS SUMMARY | 2024-05-29 12:46 | XMS_ITS | Encounter Summary ---
Author Organization [facility] Address [address] [place] [address] Care Team Providers Care Producer Arborist Manager Name Role Phone Colette Anderson MD Primary Care Provider U Darrel Castro MD Primary Care Provider +1 -[phone] Encounter Details Date Type Department Care Team Description 02/23/2021 Telephone Endocrinology - [place] [address] [place] [address] Trish Hyatt PA-C [address] [place] [address] Social History Tobacco Use Types Packs/Day Years [...] and insurance information faxed to Thao zun[facility] per his request. He states patient [...] Date Type Specialty Care Team Description 10/17/2024 Hospital Scientist Report Abstract, Provider documented as of this encounter Visit Diagnoses Not on filedocumented in this encounter Care Teams Producer Arborist Manager Relationship Specialty Start Date End Date Colette Anderson MD PCP - General Internal Medicine 02/26/1811/06 Darrel Tony MD [address] [place] [address] PCP - General Internal Medicine 11/22/21 documented as of this encounter
--- OUTSIDE RECORDS SUMMARY | 2024-05-29 12:46 | XMS_ITS | Encounter Summary ---
Author Organization [facility] Address [address] [place] [address] Care Team Providers Care Salesforce Administrator Name Role Phone Colette Anderson MD Primary Care Provider U Darrel Castro MD Primary Care Provider +1 -[phone] Encounter Details Date Type Department Care Team Description 02/18/2019 Telephone Adult Medicine [address] [address] Mark Hicks MD Social History Tobacco Use [...] Date Type Specialty Care Team Description 10/17/2024 Lime Supervisor Report Abstract, Provider documented as of this encounter Visit Diagnoses Not on filedocumented in this encounter Care Teams Salesforce Administrator Relationship Specialty Start Date End Date Colette Anderson MD PCP - General Internal Medicine 02/26/1811/06 Darrel Tony MD [address] [place] [address] PCP - General Internal Medicine 11/22/21 documented as of this encounter
--- OUTSIDE RECORDS SUMMARY | 2024-05-29 12:46 | XMS_ITS | Encounter Summary ---
Author Organization [facility] Address [address] [place] [address] Care Team Providers Care Head Of Design Name Role Phone Darrel Tony MD Primary Care Provider +1 -[phone] Encounter Details Date Type Department Care Team Description 10/17/2023 Orders Only Medical Records [address] [place] [address] Rufus Bernard MD [address] [place] [address] Social History Tobacco Use Types Packs/Day Years [...] Date Type Specialty Care Team Description 10/17/2024 General Manager Land Department Report Abstract, Provider documented as of this encounter Procedures Procedure Name Priority Date/Time Associated Diagnosis Comments OUTSIDE COLONOSCOPY Routine 10/12/2023 documented in this encounter Results * OUTSIDE COLONOSCOPY (10/12/2023) Rufus Bernard MD RADIOLOGY documented in this encounter Visit Diagnoses Not on filedocumented in this encounter Care Teams Head Of Design Relationship Specialty Start Date End Date Darrel Tony MD [address] [place] [address] [id number] PCP - General Internal Medicine 11/22/21 documented as of this encounter
--- OUTSIDE RECORDS SUMMARY | 2024-05-29 12:46 | XMS_ITS | Encounter Summary ---
Author Organization [facility] Address [address] [place] [address] Care Team Providers Care Promotions Executive Producer Name Role Phone Colette Anderson MD Primary Care Provider U Darrel Castro MD Primary Care Provider +1 -[phone] Reason for Visit * Reason Onset Date Comments Prior Authorization 10/22/2019 Plaquenil Encounter Details Date Type Department Care Team Description 10/22/2019 Telephone Rheumatology - [address] [address] Home Warner MD Prior Authorization (Plaquenil) Social History Tobacco Use Types Packs/Day Years [...] Telephone Encounter - Inder Ramos M.A. - 10/23/2019 11:23 AM EDT Plaquenil approved from 10/20/09 to 10/20/20. PA # [id number] PA done through [employer]. Paper form. ID# [id number] Script to [employer] Papers filed. * Telephone Encounter - Inder Ramos M.A. - 10/22/2019 3:27 PM EDT Form has been faxed. * Telephone Encounter - Home Warner MD - 10/22/2019 2:[address] form [address]. Warner * Telephone Encounter - Inder Ramos M.A. - 10/22/2019 1:41 PM EDT PA form from [employer] recived for Plaquenil. Form to Dr. Warner. documented in this encounter Plan of Treatment Upcoming Encounters Date Type Specialty Care Team Description 10/17/2024 Hide Curer Report Abstract, Provider documented as of this encounter Visit Diagnoses Diagnosis Systemic lupus erythematosus (SLE) with pericarditis, unspecified SLE type (HCC) documented in this encounter Care Teams Promotions Executive Producer Relationship Specialty Start Date End Date Colette Anderson MD PCP - General Internal Medicine 02/26/1811/06 Darrel Tony MD [address] [place] [address] PCP - General Internal Medicine 11/22/21 documented as of this encounter
--- OUTSIDE RECORDS SUMMARY | 2024-05-29 12:46 | XMS_ITS | Encounter Summary ---
[facility] Organization [facility] Address [address] [place] [address] Care Team Providers Care Family Services Coordinator Name Role Phone Colette Anderson MD Primary Care Provider U Darrel Castro MD Primary Care Provider +1 -[phone] Encounter Details Date Type Department Care Team Description 12/04/2019 Orders Only Adult Medicine B - [address] [address] Colette Anderson MD Fibromyalgia Social History Tobacco [...] Date Type Specialty Care Team Description 10/17/2024 Physician Underwriter Report Abstract, Provider documented as of this encounter Visit Diagnoses Diagnosis Fibromyalgia Mylagia and myositis, unspecified documented in this encounter Care Teams Family Services Coordinator Relationship Specialty Start Date End Date Colette Anderson MD PCP - General Internal Medicine 02/26/1811/06 Darrel Tony MD [address] [place] [address] PCP - General Internal Medicine 11/22/21 documented as of this encounter
--- OUTSIDE RECORDS SUMMARY | 2024-05-29 12:46 | XMS_ITS | Encounter Summary ---
Author Organization [facility] Address [address] [place] [address] Care Team Providers Care Scientific Systems Analyst Name Role Phone Colette Anderson MD Primary Care Provider U Darrel Castro MD Primary Care Provider +1 -[phone] Encounter Details Date Type Department Care Team Description 03/15/2021 Refill Rheumatology [address] [address] Home Warner MD Social History Tobacco Use [...] Date Type Specialty Care Team Description 10/17/2024 Modeling Instructor Report Abstract, Provider documented as of this encounter Visit Diagnoses Diagnosis Systemic lupus erythematosus (SLE) with pericarditis, unspecified SLE type (HCC) documented in this encounter Care Teams Scientific Systems Analyst Relationship Specialty Start Date End Date Colette Anderson MD PCP - General Internal Medicine 02/26/1811/06 Darrel Tony MD [address] [place] [address] PCP - General Internal Medicine 11/22/21 documented as of this encounter
--- OUTSIDE RECORDS SUMMARY | 2024-05-29 12:46 | XMS_ITS | Clinical Summary ---
Author Organization [facility] Address [address] [address] Care Team Providers Care Wrapper Sizer Name Role Phone Unavailable Primary Care Provider [...]
--- OUTSIDE RECORDS SUMMARY | 2024-05-29 12:46 | XMS_ITS | Encounter Summary ---
Author Organization [facility] Address [address] [place] [address] Care Team Providers Care External Grinder Name Role Phone Darrel Tony MD Primary Care Provider +1 -[phone] Encounter Details Date Type Department Care Team Description 07/05/2022 Pneumatic System Conveyor Operator Report Medical Records [address] [place] [address] Home Warner MD Social History Tobacco Use [...] Date Type Specialty Care Team Description 10/17/2024 Pneumatic System Conveyor Operator Report Abstract, Provider documented as of this encounter Visit Diagnoses Not on filedocumented in this encounter Care Teams External Grinder Relationship Specialty Start Date End Date Darrel Tony MD [address] [place] [address] PCP - General Internal Medicine 11/22/21 documented as of this encounter
--- OUTSIDE RECORDS SUMMARY | 2024-05-29 12:46 | XMS_ITS | Clinical Summary ---
Author Organization [facility] Address [address] [place] [address] Care Team Providers Care Fleet Maintenance Manager Name Role Phone Darrel Tony MD Primary Care Provider +1 -[phone] Allergies Active Allergy Reactions Severity Noted Date [...] microalbuminuria, with long-term current use of insulin ([facility]) I transmitter every 3 months 1 Each 3 03/31/2023 Active Continuous Blood Gluc Sensor (Dexcom G6 Sensor) MiscIndications:Type 2 diabetes mellitus with microalbuminuria, with long-term current use of insulin ([facility]) 1 sensor every 10 days 9 Each [...] microalbuminuria, with long-term current use of insulin ([facility]) Inject 2-10 Units into the skin 3 [...] ARTHRALGIAS, MILD PROTEINURIA - resolved + Anti-DNA, Anti-WINE SPECIALIST, Anti-Sm, SS-A On hydroxychloroquine - eye exam [...] Description 04/20/2024 Refill Adult Med Suzanne Winston, SACK FILLER E-prescribe Rx Request 04/03/2024 Refill Orthopedic John [...] Date Type Specialty Care Team Description 10/17/2024 Rinkman Report Abstract, Provider Health Maintenance Due Date [...] HEPATITIS C SCREENING Completed 02/12/2009 Care Teams Fleet Maintenance Manager Relationship Specialty Start Date End Date Darrel Tony MD [address] [place] [address] PCP - General Internal Medicine 11/22/21
--- OUTSIDE RECORDS SUMMARY | 2024-05-29 12:46 | XMS_ITS | Encounter Summary ---
Author Organization [facility] Address [address] [place] [address] Care Team Providers Care Rand Maker Name Role Phone Colette Anderson MD Primary Care Provider U Darrel Castro MD Primary Care Provider +1 -[phone] Encounter Details Date Type Department Care Team Description 11/13/2019 Orders Only Adult Medicine B - [address] [address] Colette Anderson MD Social History Tobacco Use [...] Date Type Specialty Care Team Description 10/17/2024 Per Diem Clerk Report Abstract, Provider documented as of this encounter Visit Diagnoses Not on filedocumented in this encounter Care Teams Rand Maker Relationship Specialty Start Date End Date Colette Anderson MD PCP - General Internal Medicine 02/26/1811/06 Darrel Tony MD [address] [place] [address] PCP - General Internal Medicine 11/22/21 documented as of this encounter
--- OUTSIDE RECORDS SUMMARY | 2024-05-29 12:46 | XMS_ITS | Encounter Summary ---
Author Organization [facility] Address [address] [place] [address] Care Team Providers Care Tube Washer Name Role Phone Darrel Toyn MD Primary Care Provider +1 -[phone] Reason for Visit * Reason Comments E-prescribe Rx Request Encounter Details Date Type Department Care Team Description 04/03/2024 Refill [facility] [address] [place] [phone] John Garvin DPM E-prescribe Rx Request Social History Tobacco Use [...] Type Specialty Care Team Description 10/17/2024 Radio Aerial Installer Report Abstract, Provider documented as of this encounter Visit Diagnoses Not on filedocumented in this encounter Care Teams Tube Washer Relationship Specialty Start Date End Date Darrel Tony MD [address] [place] [address] PCP - General Internal Medicine 11/22/21 documented as of this encounter
--- OUTSIDE RECORDS SUMMARY | 2024-05-29 12:46 | XMS_ITS | Encounter Summary ---
Author Organization [facility] Address [address] [place] [address] Care Team Providers Care Letter Carrier Name Role Phone Colette Anderson MD Primary Care Provider U Darrel Castro MD Primary Care Provider +1 -[phone] Encounter Details Date Type Department Care Team Description 04/26/2021 Orders Only Endocrinology - [place] [address] [place] [address] Trish Hyatt PA-C [address] [place] [address] Social History Tobacco Use Types Packs/Day Years [...] Type Specialty Care Team Description 10/17/2024 Structural Steel Shop Supervisor Report Abstract, Provider documented as of this encounter Visit Diagnoses Not on filedocumented in this encounter Care Teams Letter Carrier Relationship Specialty Start Date End Date Colette Anderson MD PCP - General Internal Medicine 02/26/1811/06 Darrel Tony MD [address] [place] [address] PCP - General Internal Medicine 11/22/21 documented as of this encounter
--- OUTSIDE RECORDS SUMMARY | 2024-05-29 12:46 | XMS_ITS | Encounter Summary ---
Author Organization [facility] Address [address] [place] [address] Care Team Providers Care Stratigraphy Teacher Name Role Phone Colette Anderson MD Primary Care Provider U Darrel Castro MD Primary Care Provider +1 -[phone] Reason for Visit * Reason Onset Date Comments Faxed Refill 11/14/2019 Encounter Details Date Type Department Care Team Description 11/14/2019 Refill Adult Medicine B - [place] [address] [place] [address] Colette Anderson MD Faxed Refill Social History [...] RAMONTNA / Plan: POS $20/30 JULIANNE ADAME [id number] THNE TRADITNAL / Product Type: POS Amz-fap-Pfryygb documented in this encounter Plan of Treatment Upcoming Encounters Date Type Specialty Care Team Description 10/17/2024 School Business Manager Report Abstract, Provider documented as of this encounter Visit Diagnoses Not on filedocumented in this encounter Care Teams Stratigraphy Teacher Relationship Specialty Start Date End Date Colette Anderson MD PCP - General Internal Medicine 02/26/1811/06 Darrel Tony MD [address] [place] [address] PCP - General Internal Medicine 11/22/21 documented as of this encounter
--- OUTSIDE RECORDS SUMMARY | 2024-05-29 12:46 | XMS_ITS | Encounter Summary ---
[facility] Address [address] [place] [address] Care Team Providers Care Chemist Internship Name Role Phone Darrel Tony MD Primary Care Provider +1 -[phone] Reason for Visit * Reason Onset Date Comments refill request 05/12/2022 Encounter Details Date Type Department Care Team Description 05/12/2022 Refill Adult Medicine [address] [address] Darrel Tony MD [address] [place] [address] refill request Social History Tobacco Use Types [...] 10 Mg Tablet 30 30 Je Cam [id number] [facility] (1855) 0/0 0.50 [place] 2022 2022 1 Gabapentin 600 Mg Tablet 180 30 Ja Iraj [id number] [facility] (7888) 0/3 4.02 LME Medicaid [place] 04/13/2022 04/13/2022 1 Oxycodone Hcl (Ir) 5 Mg Tablet 84 28 Ka Gun [id number] [facility] (1855) 0/0 22.50 M[place] 03/23/2022 09/13/2021 1 Gabapentin 600 Mg Tablet 180 30 Ja Iraj [id number] [facility] (7608) 4/4 4.02 L[place] 03/16/2022 03/16/2022 1 Oxycodone Hcl (Ir) 5 Mg Tablet 84 28 Te Sva [id number] [facility] (4668) 0/0 22.50 [place] 03/07/2022 03/07/2022 1 Zolpidem Tartrate 10 Mg Tablet 30 30 Je Cam [id number] [facility] (1855) 0/1 0.50 [place] 02/20/2022 09/13/2021 1 Gabapentin 600 Mg Tablet 180 30 Ja Iraj [id number] [facility] (7608) 3/4 4.02 L[place] 02/10/2022 02/10/2022 1 Oxycodone Hcl (Ir) 5 Mg Tablet 84 28 Ka Gun [id number] [facility] (1838) 0/0 22.50 [place] 01/19/2022 09/13/2021 1 Gabapentin 600 Mg Tablet 180 30 Ja Iraj [id number] [facility] (0308) 2/4 4.02 L[place] 01/12/2022 01/12/2022 1 Oxycodone Hcl (Ir) 5 Mg Tablet 84 28 Ka Gun [id number] [facility] (7608) 0/0 22.50 [place] 12/13/2021 12/13/2021 1 Oxycodone Hcl (Ir) 5 Mg Tablet 84 28 Ka Gun [id number] [facility] (7608) 0/0 22.50 [place] 11/12/2021 11/12/2021 1 Oxycodone Hcl (Ir) 5 Mg Tablet 84 28 Te Sva [id number] [facility] (7608) 0/0 22.50 [place] 11/02/2021 08/11/2021 1 Zolpidem Tartrate 5 Mg Tablet 30 30 Je Cam [id number] [facility] (1855) 2/2 0.25 L[place] 10/16/2021 09/13/2021 1 Gabapentin 600 Mg Tablet 180 30 Ja Iraj [id number] [facility] (7608) / 4.02 LME [place] 10/14/2021 10/14/2021 1 Oxycodone Hcl (Ir) 5 Mg Tablet 84 28 [place] documented in this encounter Plan of Treatment Upcoming Encounters Date Type Specialty Care Team Description 10/17/2024 Business Affairs Manager Report Abstract, Provider documented as of this encounter Visit Diagnoses Diagnosis Fibromyalgia Mylagia and myositis, unspecified documented in this encounter Care Teams Chemist Internship Relationship Specialty Start Date End Date Darrel Tony MD [address] [place] [address] PCP - General Internal Medicine 11/22/21 documented as of this encounter
--- OUTSIDE RECORDS SUMMARY | 2024-05-29 12:46 | XMS_ITS | Encounter Summary ---
Author Organization [facility] Address [address] [place] [address] Care Team Providers Care Social Work Assistant Name Role Phone Colette Andersno MD Primary Care Provider U Darrel Castro MD Primary Care Provider +1 -[phone] Encounter Details Date Type Department Care Team Description 10/02/2019 Release of Information Medical Records [address] [place] [address] Abstract, Provider Social History Tobacco Use Types [...] Type Specialty Care Team Description 10/17/2024 Director Of Social Services Report Abstract, Provider documented as of this encounter Visit Diagnoses Not on filedocumented in this encounter Care Teams Social Work Assistant Relationship Specialty Start Date End Date Colette Anderson MD PCP - General Internal Medicine 02/26/1811/06 Darrel Tony MD [address] [place] [address] PCP - General Internal Medicine 11/22/21 documented as of this encounter
--- OUTSIDE RECORDS SUMMARY | 2024-05-29 12:46 | XMS_ITS | Encounter Summary ---
Author Organization [employer] Address [address] [place] [address] Care Team Providers Care Production Control Technologist Name Role Phone Darrel Tony MD Primary Care Provider +1 -[phone] Reason for Visit * Reason Onset Date Comments Faxed Order 05/17/2024 [facility] Encounter Details Date Type Department Care Team (Late st Contact Info) Description 05/17/2024 [facility] [address] [place] [address] Darrel Tony MD [address] [place] [address] Faxed Order ([facility] ) Social History Tobacco [...] Progress Notes * Sherrie Morrison MA - 05/23/2024 8:53 AM EDT Signed and faxed. * Raya Love - 05/17/2024 4:05 PM EDT Orders from [facility] placed in Darrel Tony MD bin. Please complete and fax back to [phone]. Thank you documented in this encounter Plan of Treatment Upcoming Encounters Date Type Department Care Team (Late st Contact Info) Description 06/26/2024 11:15 AM EDT Office Visit Internal Medicine - [address] [address] Lu Chamberlain NP [address] [place] [address] 08/28/2024 11:00 AM EDT Office Visit Endocrinology - [address] [address] Trish Hyatt PA [address] [place] [address] documented as of this encounter Visit Diagnoses Not on filedocumented in this encounter Care Teams Production Control Technologist Relationship Specialty Start Date End Date Darrel Tony MD [address] [place] [address] PCP - General Internal Medicine 11/22/21 documented as of this encounter
--- OUTSIDE RECORDS SUMMARY | 2024-05-29 12:46 | XMS_ITS | Encounter Summary ---
Author Organization [facility] Address [address] [place] [address] Care Team Providers Care Auger Press Operator Name Role Phone Colette Anderson MD Primary Care Provider U Darrel Castro MD Primary Care Provider +1 -[phone] Encounter Details Date Type Department Care Team Description 05/08/2019 Telephone Adult Medicine [address] [address] Colette Anderson MD Social History Tobacco Use [...] Telephone Encounter - Colette Jennings MD - 05/08/2019 2:51 PM EDT Spoke to patient. Patient is having some vaginal irritation with discharge. UA and culture done recently was not suggestive of UTI. Will treat as a vaginal infection/candidiasis. Sent fluconazole 150mg once. documented in this encounter Plan of Treatment Upcoming Encounters Date Type Specialty Care Team Description 10/17/2024 Manager Demand Report Abstract, Provider documented as of this encounter Visit Diagnoses Not on filedocumented in this encounter Care Teams Auger Press Operator Relationship Specialty Start Date End Date Colette Anderson MD PCP - General Internal Medicine 02/26/1811/06 Darrel Tony MD [address] [place] [address] PCP - General Internal Medicine 11/22/21 documented as of this encounter
--- OUTSIDE RECORDS SUMMARY | 2024-05-29 12:46 | XMS_ITS | Encounter Summary ---
Author Organization [facility] Address [address] [place] [address] Care Team Providers Care Barrel Lathe Operator Name Role Phone Colette Anderson MD Primary Care Provider U Darrel Castro MD Primary Care Provider +1 -[phone] Encounter Details Date Type Department Care Team Description 03/25/2021 Pt. Non Urgent Medical Question Endocrinology - [place] [address] [place] [address] Trish Hyatt PA-C [address] [place] [address] Social History Tobacco Use Types Packs/Day Years [...] Date Type Specialty Care Team Description 10/17/2024 Dinkey Engine Firer/Fireman Report Abstract, Provider documented as of this encounter Visit Diagnoses Not on filedocumented in this encounter Care Teams Barrel Lathe Operator Relationship Specialty Start Date End Date Colette Anderson MD PCP - General Internal Medicine 02/26/1811/06 Darrel Tony MD [address] [place] [address] PCP - General Internal Medicine 11/22/21 documented as of this encounter
--- OUTSIDE RECORDS SUMMARY | 2024-05-29 12:46 | XMS_ITS | Encounter Summary ---
Author Organization [facility] Address [address] [place] [address] Care Team Providers Care Industrial Commercial Groundskeeper Name Role Phone Colette Anderson MD Primary Care Provider U Darrel Castro MD Primary Care Provider +1 -[phone] Encounter Details Date Type Department Care Team Description 04/12/2021 CGM Report Medical Records [address] [place] [address] Abstract, Provider Social History Tobacco Use Types [...] Date Type Specialty Care Team Description 10/17/2024 Support Services Coordinator Report Abstract, Provider documented as of this encounter Visit Diagnoses Not on filedocumented in this encounter Care Teams Industrial Commercial Groundskeeper Relationship Specialty Start Date End Date Colette Anderson MD PCP - General Internal Medicine 02/26/1811/06 Darrel Tony MD [address] [place] [id number] PCP - General Internal Medicine 11/22/21 documented as of this encounter
--- OUTSIDE RECORDS SUMMARY | 2024-05-29 12:46 | XMS_ITS | Encounter Summary ---
Author Organization [facility] Address [address] [place] [address] Care Team Providers Care Apparatus Cleaner Name Role Phone Darrel Tony MD Primary Care Provider +1 -[phone] Encounter Details Date Type Department Care Team Description 06/26/2022 Refill Nephrology - [address] [address] Wagner Herrera MD [address] [place] [address] Social History Tobacco Use Types Packs/Day Years [...] Type Specialty Care Team Description 10/17/2024 Physician Relations Manager Report Abstract, Provider documented as of this encounter Visit Diagnoses Not on filedocumented in this encounter Care Teams Apparatus Cleaner Relationship Specialty Start Date End Date Darrel Tony MD [address] [place] [address] PCP - General Internal Medicine 11/22/21 documented as of this encounter
--- OUTSIDE RECORDS SUMMARY | 2024-05-29 12:46 | XMS_ITS | Encounter Summary ---
[facility] Organization [facility] Address [address] [place] [address] Care Team Providers Care Front Maker Lockstitch Name Role Phone Jaime Gonzales MD Primary Care Provider Unavail able Xenia Morfin MD Primary Care Provider Unavaila Manoj Hunter MD Primary Care Provider Un available Darrel Tony MD Primary Care Provider +1 -[phone] [facility], Pcp Primary Care Provider Unavailabl Stefan Landaverde Primary Care Provider Unav ailable Colette Anderson MD Primary Care Provider U navailDarrel Dugan MD Primary Care Provider +1 -[phone] Encounter Details Date Type Department Care Team Description 11/23/2011 Web Marketing Intern Report Medical Records [address] [place] [address] Abel Rider PA-C Social History Tobacco Use [...] Date Type Specialty Care Team Description 10/17/2024 Web Marketing Intern Report Abstract, Provider documented as of this encounter Visit Diagnoses Not on filedocumented in this encounter Care Teams Front Maker Lockstitch Relationship Specialty Start Date End Date Jaime Gonzales MD PCP - General 11/06/05 11/19/14 Xenia Morfin MD PCP - General Internal Medicine 11/20/14 09/01/15 Manoj Ragland MD PCP - General Internal Medicine 09/02/15 Darrel Tony MD [address] [place] [address] PCP - General Internal Medicine 02/18/16 07/05/16 [facility], Pcp [address] [place] [address] PCP - General Internal Medicine 07/06/16 11/13/17 Stefan Johnson [address] [place] [address] PCP - General Internal Medicine 11/14/17 02/25/18 Colette Anderson MD [address] [place] [address] PCP - General Internal Medicine 02/26/18 11/21/21 Darrel Tony MD [address] [place] [address] PCP - General Internal Medicine 11/22/21 documented as of this encounter
--- OUTSIDE RECORDS SUMMARY | 2024-05-29 12:46 | XMS_ITS | Encounter Summary ---
Author Organization [facility] Address [address] [place] [address] Care Team Providers Care Grinder Set Up Operator Surface Name Role Phone Colette Anderson MD Primary Care Provider U Darrel Castro MD Primary Care Provider +1 -[phone] Encounter Details Date Type Department Care Team Description 11/27/2019 Pt. Non Urgent Medical Question Rheumatology - [address] [address] Home Alston MD Social History Tobacco Use [...] NOT THIS TIME. I DON'T HAVE ANYMORE VENEER PRODUCTION MACHINE OPERATOR TIME SO I HAVE BEEN COMING INTO WORK STRUGGLING TO MAKE IT THROUGH THE DAY, LITERAL PLEASE HELP ME GALINA PENNY documented in this encounter Plan of Treatment Upcoming Encounters Date Type Specialty Care Team Description 10/17/2024 Assistant Construction Superintendent Report Abstract, Provider documented as of this encounter Visit Diagnoses Not on filedocumented in this encounter Care Teams Grinder Set Up Operator Surface Relationship Specialty Start Date End Date Colette Anderson MD PCP - General Internal Medicine 02/26/1811/06 Darrel Tony MD [address] [place] [address] PCP - General Internal Medicine 11/22/21 documented as of this encounter
--- OUTSIDE RECORDS SUMMARY | 2024-05-29 12:46 | XMS_ITS | Encounter Summary ---
Author Organization [facility] Address [address] [place] [address] Care Team Providers Care Proration Clerk Name Role Phone Colette Anderson MD Primary Care Provider U Darrel Castro MD Primary Care Provider +1 -[phone] Encounter Details Date Type Department Care Team Description 10/06/2021 Pt. Non Urgent Medical Question Nephrology - [place] [address] [place] [address] Wagner Herrera MD [address] [place] [address] Social History Tobacco Use Types Packs/Day Years [...] Date Type Specialty Care Team Description 10/17/2024 Construction Helper Report Abstract, Provider documented as of this encounter Visit Diagnoses Not on filedocumented in this encounter Care Teams Proration Clerk Relationship Specialty Start Date End Date Colette Anderson MD PCP - General Internal Medicine 02/26/1811/06 Darrel Tony MD [address] [place] [address] PCP - General Internal Medicine 11/22/21 documented as of this encounter
--- OUTSIDE RECORDS SUMMARY | 2024-05-29 12:46 | XMS_ITS | Encounter Summary ---
Author Organization [facility] Address [address] [place] [address] Care Team Providers Care Rn Homecare Name Role Phone Colette Anderson MD Primary Care Provider U Darrel Castro MD Primary Care Provider +1 -[phone] Encounter Details Date Type Department Care Team Description 08/18/2019 Pt. Non Urgent Medical Question Nephrology - [place] [address] [place] [address] Wagner Herrera MD [address] [place] [address] Social History Tobacco Use Types Packs/Day Years [...] Type Specialty Care Team Description 10/17/2024 Licensed Architect Report Abstract, Provider documented as of this encounter Visit Diagnoses Not on filedocumented in this encounter Care Teams Rn Homecare Relationship Specialty Start Date End Date Colette Anderson MD PCP - General Internal Medicine 02/26/1811/06 Darrel Tony MD [address] [place] [address] PCP - General Internal Medicine 11/22/21 documented as of this encounter
--- OUTSIDE RECORDS SUMMARY | 2024-05-29 12:46 | XMS_ITS | Encounter Summary ---
Author Organization [facility] Address [address] [place] [address] Care Team Providers Care Pigment Pumper Name Role Phone Colette Anderson MD Primary Care Provider U Darrel Castro MD Primary Care Provider [phone] [phone] Reason for Visit * Reason Comments E-prescribe Rx Request Encounter Details Date Type Department Care Team Description 11/02/2021 Refill Endocrinology - [place] [address] [place] [address] Trish Hyatt PA-C [address] [place] [address] E-prescribe Rx Request Social History Tobacco Use [...] N/A Patients current insurance carrier is: Payor: [facility] FFS / Plan[facility] / Product Type: MEDICAID RISK documented in this encounter Plan of Treatment Upcoming Encounters Date Type Specialty Care Team Description 10/17/2024 Inletter Report Abstract, Provider documented as of this encounter Visit Diagnoses Not on filedocumented in this encounter Care Teams Pigment Pumper Relationship Specialty Start Date End Date Colette Anderson MD PCP - General Internal Medicine 02/26/1811/06 Darrel Tony MD [address] [place] [address] PCP - General Internal Medicine 11/22/21 documented as of this encounter
--- OUTSIDE RECORDS SUMMARY | 2024-05-29 12:46 | XMS_ITS | Encounter Summary ---
Author Organization [facility] Address [address] [place] [address] Care Team Providers Care Bait Tier Name Role Phone Colette Anderson MD Primary Care Provider U Darrel Castro MD Primary Care Provider [phone] [phone] Encounter Details Date Type Department Care Team Description 06/03/2021 Pt. Non Urgent Medical Question Endocrinology - [place] [address] [place] [address] Trish Hyatt PA-C [address] [place] [address] Social History Tobacco Use Types Packs/Day Years [...] 06/03/2021 8:19 AM EDTFrom: Galina Doyle To: Alirzea Hyatt Sent: 06/03/2021 8:04 AM EDT Subject: Appointment I forgot you are in [place] now Trish, i don't have a ride out there this morning. My daughter is in school in [place]. I know you wanted to check my meter and i have been having my sugar drop to the 60's. She's off on Mondays and Fridays from school, any possibilities that you can fit me in tomorrow or Monday? documented in this encounter Plan of Treatment Upcoming Encounters Date Type Specialty Care Team Description 10/17/2024 Ground Intelligence Officer Report Abstract, Provider documented as of this encounter Visit Diagnoses Not on filedocumented in this encounter Care Teams Bait Tier Relationship Specialty Start Date End Date Colette Anderson MD PCP - General Internal Medicine 02/26/1811/06 Darrel Tony MD [address] [place] [address] PCP - General Internal Medicine 11/22/21 documented as of this encounter
--- OUTSIDE RECORDS SUMMARY | 2024-05-29 12:46 | XMS_ITS | Encounter Summary ---
Author Organization [facility] Address [address] [place] [address] Care Team Providers Care Director Of Music Name Role Phone Colette Anderson MD Primary Care Provider U Darrel Castro MD Primary Care Provider [phone] [phone] Encounter Details Date Type Department Care Team Description 11/27/2019 Telephone Gastroenterology - [address] [place] [phone] Rufus Bernard MD [address] [place] [address] Social History Tobacco Use Types Packs/Day Years [...] Type Specialty Care Team Description 10/17/2024 Senior Mechanical Project Engineer Report Abstract, Provider documented as of this encounter Visit Diagnoses Not on filedocumented in this encounter Care Teams Director Of Music Relationship Specialty Start Date End Date Colette Anderson MD PCP - General Internal Medicine 02/26/1811/06 Darrel Tony MD [address] [place] [address] PCP - General Internal Medicine 11/22/21 documented as of this encounter
--- OUTSIDE RECORDS SUMMARY | 2024-05-29 12:46 | XMS_ITS | Encounter Summary ---
Author Organization [facility] Address [address] [place] [address] Care Team Providers Care Auto Machinist Name Role Phone Colette Anderson MD Primary Care Provider U Darrel Castro MD Primary Care Provider [phone] [phone] Reason for Visit * Reason Onset Date Comments Walk In 01/06/2020 dizziness Encounter Details Date Type Department Care Team Description 01/06/2020 Telephone Adult Medicine - [place] [address] [place] [address] Colette Anderson MD Walk In (dizziness ) [...] Date Type Specialty Care Team Description 10/17/2024 Emissions Testing And Repair Technician Report Abstract, Provider documented as of this encounter Visit Diagnoses Not on filedocumented in this encounter Care Teams Auto Machinist Relationship Specialty Start Date End Date Colette Anderson MD PCP - General Internal Medicine 02/26/1811/06 Darrel Tony MD [address] [place] [address] PCP - General Internal Medicine 11/22/21 documented as of this encounter
--- OUTSIDE RECORDS SUMMARY | 2024-05-29 12:46 | XMS_ITS | Encounter Summary ---
Author Organization [facility] Address [address] [place] [address] Care Team Providers Care Learning Support Specialist Name Role Phone Darrel Tony MD Primary Care Provider [phone] [phone] Encounter Details Date Type Department Care Team Description 01/12/2022 Pt. Non Urgent Medical Question Adult Medicine [address] [address] Darrel Tony MD [address] [place] [address] Social History Tobacco Use Types Packs/Day Years [...] Date Type Specialty Care Team Description 10/17/2024 Tester Electronic Scale Report Abstract, Provider documented as of this encounter Visit Diagnoses Not on filedocumented in this encounter Care Teams Learning Support Specialist Relationship Specialty Start Date End Date Darrel Tony MD [address] [place] [address] PCP - General Internal Medicine 11/22/21 documented as of this encounter
--- OUTSIDE RECORDS SUMMARY | 2024-05-29 12:46 | XMS_ITS | Encounter Summary ---
Author Organization [facility] Address [address] [place] [address] Care Team Providers Care Meat Stuffer Name Role Phone Colette Anderson MD Primary Care Provider U Darrel Castro MD Primary Care Provider [phone] [phone] Reason for Referral * Non APRIL (Priority) - Unable to reach/declined Specialty Diagnoses / Procedures Referred By Contac t Referred To Contact Nephrology Procedures REFERRAL TO NEPHROLOGY Colette Anderson MD [address] [place] [address] [address] [address] Referral ID Status Reason Start Date Expiration Date V isits Requested Visits Authorized [id number] 02/18 LTR Unable to reach/decli cameron 01/29/2019 01/29/2020 1 1 Encounter Details Date Type Department Care Team Description 01/29/2019 Orders Only Adult Medicine B - [address] [address] Colette Anderson MD Type 2 diabetes mellitus [...] Date Type Specialty Care Team Description 10/17/2024 Chemical Inspector Report Abstract, Provider documented as of [...] Primary documented in this encounter Care Teams Meat Stuffer Relationship Specialty Start Date End Date Colette Anderson MD PCP - General Internal Medicine 02/26/1811/06 Darrel Tony MD [address] [place] [address] PCP - General Internal Medicine 11/22/21 documented as of this encounter
--- OUTSIDE RECORDS SUMMARY | 2024-05-29 12:46 | XMS_ITS | Encounter Summary ---
Author Organization [facility] Address [address] [place] [address] Care Team Providers Care Betting Agency Counter Clerk Name Role Phone Colette Anderson MD Primary Care Provider U Darrel Castro MD Primary Care Provider [phone] Reason for Visit * Reason Onset Date Comments Faxed Refill 05/21/2021 Encounter Details Date Type Department Care Team Description 05/21/2021 Refill Adult Medicine - [place] [address] [place] [address] Colette Anderson MD Faxed Refill Social History [...] Type Specialty Care Team Description 10/17/2024 Supervisor Cytology Report Abstract, Provider documented as of this encounter Visit Diagnoses Not on filedocumented in this encounter Care Teams Betting Agency Counter Clerk Relationship Specialty Start Date End Date Colette Anderson MD PCP - General Internal Medicine 02/26/1811/06 Darrel Tony MD [address] [place] [address] PCP - General Internal Medicine 11/22/21 documented as of this encounter
--- OUTSIDE RECORDS SUMMARY | 2024-05-29 12:46 | XMS_ITS | Encounter Summary ---
Author Organization [facility] Address [address] [place] [address] Care Team Providers Care Supervisory It Specialist Name Role Phone Colette Anderson MD Primary Care Provider U Darrel Castro MD Primary Care Provider [phone] [phone] Encounter Details Date Type Department Care Team Description 03/14/2021 Pt. Non Urgent Medical Question Endocrinology - [place] [address] [place] [address] Trish Hyatt PA-C [address] [place] [address] Social History Tobacco Use Types Packs/Day Years [...] Type Specialty Care Team Description 10/17/2024 Senior Sas Programmer Report Abstract, Provider documented as of this encounter Visit Diagnoses Not on filedocumented in this encounter Care Teams Supervisory It Specialist Relationship Specialty Start Date End Date Colette Anderson MD PCP - General Internal Medicine 02/26/1811/06 Darrel Tony MD [address] [place] [address] PCP - General Internal Medicine 11/22/21 documented as of this encounter
== END 2024-05-29 10:44 | disposition home or self-care (01) ==
LOC: HO.HOSX 10:43
PROVIDERS: Visit Provider Physician Assistant
DX: M25.561 Pain in right knee (principal); Z96.651 Presence of right artificial knee joint
CPT/HCPCS: 73562; 99212

== ENCOUNTER 2024-05-29 10:48 | Outpatient (AMB) | payer MEDICARE, SELFPAY ==
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
== END 2024-05-29 11:21 | disposition home or self-care (01) ==
LOC: HO.HOS 10:48
PROVIDERS: PCP Student in an Organized Health Care Education/Training Program; Visit Provider Physician Assistant
DX: Z96.651 Presence of right artificial knee joint (principal)
CPT/HCPCS: 99024

== ENCOUNTER → 2024-05-29 10:50 | Outpatient (BNV) | payer MEDICARE, SELFPAY | PROVIDERS: Visit Provider Radiology Diagnostic Radiology | DX: M25.561 Pain in right knee (principal); Z96.651 Presence of right artificial knee joint | CPT/HCPCS: 73562 ==

== ENCOUNTER 2024-06-21 08:57 | Outpatient (RCR) | payer OTHER, SELFPAY ==
[2024-04-30 11:08] VITALS: BP 140/70; PULSE 98; O2SAT 98
--- NOTE | 2024-04-30 13:16 | MHC.PT.EP ---
[facility] [place] [facility] [place] [facility] [place] [facility] [address] Brielle Tristan [address] [phone] F: [phone] F: [phone] F: [phone] F: [phone] Physical Therapy Plan of Care Date of Evaluation: 04/30/24 Date of Surgery: Diagnosis: PT eval and treat, Z96.651, Presence of right artificialknee joint, Status post total TKA signed by Reginaldo 04/18/24 Assessment: Pt is a pleasant 59 y/o female with PMH significant for history of Lupus with anticoagulant disorder, history of PE 1998, DMII, HTN referred to PT from [facility] orthopedics following history of R TKA 04/03/[address] Stapleton sent home on 04/04/24 with RW> Had home PT until last Monday reports at that time AAROM was -6 to 103 degrees. Today pt presents to the office reporting she has been without pain medication following her first week of recovery (states she called once for a refill and never received), exhbits AAROM -20 to 90 degrees. She reports a personal history of fall since coming home which orthopedic office was not made aware of. Her incision has 8 steri-strips on it, top and bottom of incision have lost steri-strip. Pt exhibits antalgic gait, impaired AROM, and decreased strength, reports pain is at a 6/10. Pt presents to PT with her cousin Juli who provided transportation (she will likey take advantage of [employer] rides for her PT visits. Pt's PCP is through [facility] . Pt would benefit from attending skilled PT services at a frequency of 2x/week x 4-6 weeks to address impairments, implement HEP and restore functional mobility tolerance to resume PLOF. Post initial evaluation, pt was issued seated hamstring stretching/gastroc stretching for aide in improvement of extension. Pt was educated in the benefit of icing knee in a heel prop/knee extended position. Pt tolerance for activity was poor based on her uncontrolled pain levels. Therapist called [facility] orthopedics on Filicia's behalf to inquire/request a refill on her pain medication at the end of her visit today. Pt reports she has been without her pain medication since 04/18/24. Roseline from [facility] orthopedics confirmed last prescription for pain medication that was prescribed was from 04/04/24. A refill request was made with phone update request for patient. Galina was educated re: the update of the medication status. Galina will be seen in PT twice a week x 4-6 weeks to address impairments, implement HEP, and restore mobility tolerance for improve function. Frequency and Duration: The patient will be seen 2x/week x 6 weeks Short Term Goals: 1. AAROM R knee ext to -5 degrees. 2. AAROM R knee flexion to 110 degrees. 3. Strength SLR with good lifting ability. 4. Good eccentric control for functional transfers. Halfway Goals: 1. 0 to 120 degrees AAROM>AROM. 2. Ascend/descend stairs with good dynamic balance. 3. Pt will resume community ambulation MOD I with least restrictive AD. 4. Pt will demonstrate good dynamic balance for stair negotation. 5. I HEP/self care program. Treatment Plan: Modalities to reduce pain, spasms and effusion. Manual therapy to restore motion and function. Therapeutic exercise to improve strength and flexibility. Neuromuscular re-education for posture and balance. Therapeutic activities to return to functional activities of daily living. Electronically signed by: Maggie Zhong, PT, DPT Please sign and return to therapist. Thank you for your referral.
--- NOTE | 2024-04-30 15:24 | MHC.PT.EP ---
[facility] [place] Office [place] Office [place] Office [address] Brielle Tristan [address] [phone] F: [phone] F: [phone] F: [phone] F: [phone] Physical Therapy Plan of Care Date of Evaluation: 04/30/24 Date of Surgery: Diagnosis: PT eval and treat, Z96.651, Presence of right artificialknee joint, Status post total TKA signed by Reginaldo 04/18/24 Assessment: Pt is a pleasant 59 y/o female with PMH significant for history of Lupus with anticoagulant disorder, history of PE 1998, DMII, HTN referred to PT from [facility] following history of R TKA 04/03/[address] Stapleton sent home on 04/04/24 with RW> Had home PT until last Monday reports at that time AAROM was -6 to 103 degrees. Today pt presents to the office reporting she has been without pain medication following her first week of recovery (states she called once for a refill and never received), exhbits AAROM -20 to 90 degrees. She reports a personal history of fall since coming home which orthopedic office was not made aware of. Her incision has 8 steri-strips on it, top and bottom of incision have lost steri-strip. Pt exhibits antalgic gait, impaired AROM, and decreased strength, reports pain is at a 6/10. Pt presents to PT with her cousin Juli who provided transportation (she will likey take advantage of [employer] rides for her PT visits. Pt's PCP is through [facility] . Pt would benefit from attending skilled PT services at a frequency of 2x/week x 4-6 weeks to address impairments, implement HEP and restore functional mobility tolerance to resume PLOF. Post initial evaluation, pt was issued seated hamstring stretching/gastroc stretching for aide in improvement of extension. Pt was educated in the benefit of icing knee in a heel prop/knee extended position. Pt tolerance for activity was poor based on her uncontrolled pain levels. Therapist called [facility] on Filicia's behalf to inquire/request a refill on her pain medication at the end of her visit today. Pt reports she has been without her pain medication since 04/18/24. Roseline from [facility] confirmed last prescription for pain medication that was prescribed was from 04/04/24. A refill request was made with phone update request for patient. Galina was educated re: the update of the medication status. Galina will be seen in PT twice a week x 4-6 weeks to address impairments, implement HEP, and restore mobility tolerance for improve function. Frequency and Duration: The patient will be seen 2x/week x 6 weeks Short Term Goals: 1. AAROM R knee ext to -5 degrees. 2. AAROM R knee flexion to 110 degrees. 3. Strength SLR with good lifting ability. 4. Good eccentric control for functional transfers. Penitentiary Goals: 1. 0 to 120 degrees AAROM>AROM. 2. Ascend/descend stairs with good dynamic balance. 3. Pt will resume community ambulation MOD I with least restrictive AD. 4. Pt will demonstrate good dynamic balance for stair negotation. 5. I HEP/self care program. Treatment Plan: Modalities to reduce pain, spasms and effusion. Manual therapy to restore motion and function. Therapeutic exercise to improve strength and flexibility. Neuromuscular re-education for posture and balance. Therapeutic activities to return to functional activities of daily living. Electronically signed by: Maggie Zhong, PT, DPT Please sign and return to therapist. Thank you for your referral.
[2024-05-17 10:45] LABS: MANUAL DIFF FLAG NO
[2024-05-17 11:26] LABS: Hematocrit 35.1 % (37.0-47.0); Hemoglobin 11.1 g/dl (12.0-16.0); Imm Gran Abs Auto 0.01 X10*3/uL (0.00-0.03); Imm Gran Pct Auto 0.2 % (0.0-0.4); Lymphocytes Absolute Auto 2.5 X10*3/uL (1.2-4.9); Mean Corpuscular HGB Conc 31.6 g/dl (31.0-35.0); Mean Corpuscular Hemoglobin 28.7 pg (27.0-33.0); Mean Corpuscular Volume 90.7 fL (80.0-98.0); NRBC Abs Auto 0.000 X10*3/uL (0.0-0.012); NRBC Pct Auto 0.0 /100WBC (0.0-0.2); Platelet Count 285 X10*3/uL (160-400); Red Blood Count 3.87 X10*6/uL (4.20-5.50); White Blood Count 5.6 X10*3/uL (4.8-10.8)
[2024-05-17 11:32] LABS: Hemoglobin A1C 97.1858 umol/L; Total Hemoglobin (HGBA1C) 3074.6820 umol/L
[2024-05-17 11:35] LABS: Appearance Urine Cloudy; Glucose Urine UA Negative (Negative); PH 5.5 (5.0-9.0); Specific Gravity - Urine 1.025 (1.005-1.025); UMIC TRIGGER UA YES
[2024-05-17 11:40] LABS: Alanine Aminotransferase 9 U/L (0-31); Albumin Level 3.7 g/dL (3.5-5.0); Alkaline Phosphatase 84 U/L (39-117); Anion Gap 11 (12-20); Aspartate Amino Transferase 19 U/L (5-31); Blood Urea Nitrogen 19 mg/dL (9-16); Calcium 9.3 mg/dL (8.4-10.2); Carbon Dioxide 27 mmol/L (22-29); Chloride 107 mmol/L (96-108); Estimated Glomerular Filt Rate > 60; Potassium 3.9 mmol/L (3.3-5.1); Sodium 141 mmol/L (135-145); Total Protein 7.8 g/dL (6.5-8.0)
[2024-05-17 12:05] LABS: Protein/Creatinine Ratio, Ur 0.06 (<0.2); Total Protein Urine Random 10 mg/dL (<12)
[2024-05-23 08:13] LABS: DNAds, Crithidia Antibody Negative (Negative)
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
== END 2024-08-27 07:17 | disposition home or self-care (01) ==
LOC: HO.PTS 08:57
PROVIDERS: Absent Provider Student in an Organized Health Care Education/Training Program; PCP Internal Medicine; Visit Provider Physician Assistant
DX: Z47.1 Aftercare following joint replacement surgery (principal); Z96.651 Presence of right artificial knee joint
CPT/HCPCS: 36415; 80053; 81001; 82570; 83036; 84156; 85025; 85652; 86140; 86160; 86225; 86255; 97110; 97116; 97140; 97162; 97530; 97535

== ENCOUNTER 2024-06-21 10:29 | Outpatient (AMB) | payer OTHER, SELFPAY ==
[2024-06-21 10:42] VITALS: BMI 36.5
--- NOTE | 2024-06-21 10:42 | A.OFFVIS_ITS ---
Vital Signs 06/21/24 10:42 Height 5 ft 9 in Weight 247 lb BMI 36.5 Intake Visit Reasons: PO - Right TKA w/NE 04/03/24 Intake Note: Galina is a 59 year old female who presents today for a post operative appointment about 3 months s/p Right TKA 04/03/24. Patient reports that she is doing well, she has no concerns at this time. She continues to work with PT Allergies tramadol Allergy (Severe, Verified 05/29/24 11:13) severe rash trazodone Adverse Reaction (Severe, Verified 05/29/24 11:13) hives HPI HPI PO - Right TKA w/NE 04/03/24: Details: Mary Jo is now almost 3 months status post right knee replacement doing well. She has no complaints. She is walking normally. [facility] Medical History Lupus Osteoarthritis of right knee Arthritis Chronic renal insufficiency Glaucoma Pulmonary embolism GERD (gastroesophageal reflux disease) Diabetes Lupus anticoagulant disorder HTN (hypertension) Depression Osteoarthritis Lumbar spondylosis Lower back pain Smoker Bilateral knee swelling Hypertension Surgical History Status post right knee replacement History of esophagogastroduodenoscopy (EGD) H/O colonoscopy Hx of excision of mass Hx laparoscopic cholecystectomy Hx of tubal ligation Hx of section Family History Brother Diabetes Mother Hypertension Breast cancer, Onset Age: 49 Father Hypertension Maternal Grandmother Breast cancer Maternal Aunt Breast cancer, Onset Age: 53 Social History Household Members: Family and Children Household Members Other:: children Housing: House Are you a primary career and technology education teacher to a significant other at home: No 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 0-130 degrees of motion. Stable to varus and valgus stress. Normal gait mechanics. Assessment & Plan Assessment & Plan (1) Status post total right knee replacement: Code(s): Z96.651 - Presence of right artificial knee joint Category: Surgical Plan: 59-year-old woman status post right knee replacement doing well. She would like to discuss left knee replacement but not at this time. I would recommend she follow up in 6 months and we can see how she is doing. Discussed dental prophylaxis. Coding Level of Care Code Global (49042) Diagnoses Status post total right knee replacement Z96.651
--- OUTSIDE RECORDS SUMMARY | 2024-06-21 10:54 | XMS_ITS | Encounter Summary ---
Author Organization [facility] Address [address] [place] [address] Care Team Providers Care Remelt Operator Name Role Phone Darrel Tony MD Primary Care Provider [phone] Reason for Visit * Reason Onset Date Comments Faxed Order 05/17/2024 [facility] Encounter Details Date Type Department Care Team (Late st Contact Info) Description 05/17/2024 [facility] [address] [place] [address] Darrel Tony MD [address] [place] [id number] Faxed Order ([facility] ) Social History Tobacco [...] bin. Please complete and fax back to [phone]. Thank you documented in this encounter Plan of Treatment Upcoming Encounters Date Type Department Care Team (Late st Contact Info) Description 06/26/2024 11:15 AM EDT Office Visit Internal Medicine - [address] [address] Lu Chamberlain NP [address] [place] [phone] 08/28/2024 11:00 AM EDT Office Visit Endocrinology - [address] [address] Trish Hyatt PA [address] [place] [phone] documented as of this encounter Visit Diagnoses Not on filedocumented in this encounter Care Teams Remelt Operator Relationship Specialty Start Date End Date Darrel Tony MD [address] [place] [id number] PCP - General Internal Medicine 11/22/21 documented as of this encounter
--- OUTSIDE RECORDS SUMMARY | 2024-06-21 10:54 | XMS_ITS | Clinical Summary ---
Author Organization [place] [address] [address] [facility] Building Address [address] [place] [address] Phone Care Team Providers Care Greenhouse Florist Name Role Phone Darrel Tony MD Primary Care Provider [phone] Allergies Active Allergy Reactions Criticality Noted Date [...] needed (incontinence). - Does not apply Active DICLOFENAC SODIUM TOP Diclofenac Sodium 1 [...] FOOD 60 tablet 5 04/23/19 25 Active hydroCHLOROthiaz clara (HYDRODIURIL) 50 mg tablet Take 1 tablet (50 mg total) by mouth 1 (one) time each day. 90 tablet 04/25/19 25 Active insulin glargine (LANTUS SoloStar) 100 unit/mL (3 mL) injection pen INJECT 45 UNITS INTO THE SKIN AT BEDTIME OR DIRECTED 45 mL 5 05/16/19 25 Active lisinopriL (PRINIVIL,ZESTRI L) 20 mg tablet Take 1 tablet (20 mg total) by mouth 1 (one) time each day. 28 tablet 1 05/22/19 25 Active blood-glucose transmitter ([employer] G6 Transmitter) deviceIndication s:Type 2 diabetes mellitus with other diabetic kidney complication ([facility] V24, [facility] V28) Change transmitter every 3 months 3 each 3 06/07/19 25 Active oxyCODONE (ROXICODONE) 10 mg immediate release tablet Take 0.5 tablets (5 mg total) by mouth every 8 (eight) hours if needed for severe pain for up to 28 days. Max Daily Amount: 15 mg 42 tablet 06/07/19 25 025 Active nystatin (MYCOSTATIN) 100,000 unit/gram powder APPLY TO AREA OF CONCERN 2-3 TIMES PER DAY WHENEVER RASH IS PRESENT. 15 g 3 06/13/19 25 Active nystatin (MYCOSTATIN) 100,000 unit/gram powder Apply to area of concern 2-3 times per day whenever rash is present. 025 Discontin ued(Reord er) oxyCODONE (ROXICODONE) 10 mg immediate release tablet Take 0.5 tablets (5 mg total) by mouth every 8 (eight) hours if needed for severe pain for up to 28 days. Max Daily Amount: 15 mg 42 tablet 05/09/19 25 025 Discontin ued(Reord er) Active Problems Problem Noted Date Diagnosed Date CKD (chronic kidney disease) stage 2, GFR 60-89 ml/min 12/12/2023 Essential hypertension, benign 11/08/2023 Morbid obesity ([facility] V24, [facility] V28) 2023 Discoid lupus 11/08/2023 Esophageal reflux 11/08/2023 Systemic lupus erythematosus ([facility] V24, [facility] V28) 11/08/2023 Depression, major 11/08/2023 Fibromyalgia 11/08/2023 Carpal tunnel syndrome, bilateral 11/08/2023 Type 2 diabetes mellitus, wi th long-term current use of insulin ([facility] V24, [facility] V28) 11/08/2023 Adrenal adenoma, left 11/08/2023 Type 2 diabetes mellitus wit h microalbuminuria, with long-term current use of insulin ([facility] V24, [facility] V28) 11/08/2023 Microalbuminuria 11/08/2023 Lupus anticoagulant positive 11/08/2023 Vitamin D deficiency 11/08/2023 Diabetic polyneuropathy asso ciated with type 2 diabetes mellitus ([facility] V24, [facility] V28) 11/08/2023 Other chronic pain 11/08/2023 Pancreatitis 11/08/2023 Primary osteoarthritis of right knee 11/08/2023 Encounters Date Type Department Care Team Description 06/06/2024 Telephone Endocrinology - [address] [phone] Trish Hyatt PA PRIOR AUTHORIZATION 05/17/2024 [facility] [phone] Darrel Tony MD [facility] 05/15/2024 11:00 AM EDT Office Visit Endocrinology [address] [phone] Trish Hyatt PA Type 2 diabetes mellitus with other specified complication, with long-term current use of insulin ([facility] V24, [facility] V28) (Primary Dx) 05/10/2024 [facility] [phone] Darrel Tony MD DME Request ( [employer] ) 04/30/2024 Telephone Internal Medicine - [facility] [address] [facility] [place] [address] Darrel Tony MD Med Refill 04/24/2024 Telephone Internal Medicine [address] [phone] Darrel Tony MD Forms/questionnaires ([employer]) 04/24/2024 [facility] [address] [phone] Darrel Tony MD Forms/questionnaires ([employer]) 04/16/2024 [facility] [address] [phone] Darrel Tony MD Request For Order(s) ([facility] [facility]) 03/27/2024 [facility] [address] [phone] Darrel Tony MD Faxed Order ([facility] ) 03/26/[address] [phone] Darrel Tony MD faxed order from Last 3 Months Immunizations Name Administration [...] CHOLECYSTECTOMY 1998 PROCEDURE: LAPAROSCOPY, CHOLECYSTECTOMY SECTION PROCEDURE: SC DELIVERY ONLY; COMMENT: X4 TUBAL LIGATION PROCEDURE: HISTORICAL TUBAL LIGATION CHOLECYSTECTOMY PROCEDURE: SC LAPAROSCOPY SURG CHOLECYSTECTOMY Medical History Medical History Date Comments Other pulmonary embolism and infarction 1998 DX:Other pulmonary embolism and infarction 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; COMMENT: scalp, arms; + biopsy 11/2005 Systemic lupus erythematosus ([facility] V24, [facility] V28) 09/01/2006 DX:Systemic lupus erythemato espinoza (HCC); COMMENT: DISCOID LESIONS, SUB-ACUTE SKIN LESIONS ARTHRALGIAS, MILD PROTEINURIA + Anti-DNA, 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, Anti-Sm, SS-A Esophageal reflux DX:Esophageal reflux Essential hypertension, benign 05/30/2005 D X:Essential hypertension, benign Obesity DX:Obesity 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 D X: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 Type 2 diabetes mellitus ([facility] V24, [facility] V28) 03/01/2018 DX:Type 2 diabetes mellitus ([facility]) Vitamin D deficiency 11/14/2019 DX:Vitamin [...] EDT Office Visit Internal Medicine - [address] [phone] Lu Chamberlain, OTILIO [address] [place] [address] 08/28/2024 11:00 AM EDT Office Visit Endocrinology [address] [phone] Trish Hyatt PA [address] [place] [phone] Health Maintenance Due Date Last Done Comments [...] RESULTING AGENCY - 05/08/2023 2:56 PM EDT [id number] THINPREP PAP, IMAGED: NEGATIVE FOR SQUAMOUS INTRAEPITHELIAL LESION AND MALIGNANCY . QUINN CARMICHAEL(ASCP) (CASE ELECTRONICALLY SIGNED 05 08 2023) RESULT OF APTIMA HIGH RISK HPV ASSAY: HIGH RISK HPV: ??NEGATIVE (SEROTYPES 16,18,31,33,35,39,45,51,52,56,58,59,66,68) COMPLETED ON 2023-05-08 ADEQUACY: SATISFACTORY ENDOCERVICAL/TRANSFORMATION ZONE COMPONENT ABSENT. SOURCE: THINPREP PAP HPV ANY DX: ??REFLEX 16 AND 18, CERVICAL, IMAGED CLINICAL INFORMATION: HPV ANY DIAGNOSIS. MENOPAUSE, Z12.4 Jackeline Novoa CNM LAB CYTOLOGY ORDERABLES Jadyn roseann Result HISTORICAL [...] Most Recently Relevant to Health Maintenance Insurance [facility] MEDIC[facility] Member Subscriber Plan / Payer (Ef fective 2023-Present) Name:CHRIS PENNY Relation to Subscriber:Self Name:Chris Penny Payer ID:[id number] Group ID:[id number] Type:Not on file Address: [place] [address] [address] [address] Care Teams Greenhouse Florist Relationship Specialty Start Date End Date Darrel Tony MD [address] [place] [address] PCP - General Internal Medicine 11/22/21
--- OUTSIDE RECORDS SUMMARY | 2024-06-21 10:55 | XMS_ITS | Data Portability ---
Author Organization [place] [facility] Address [address] [place] [phone] Care Team Providers Care Packer Insulation Name Role Phone [facility] MEDICINE Primary Care Provi nahum HIM [facility] OTHER Assessment No assessment recorded. Plan of Treatment Reminders Order Date Submit Date Provider Last Modified By Organization Details Last Modified Time Details Appointments None recorded. Lab BMP, serum or plasma [address], [address] [place] [address], [phone] 5 13:22:39 rapid SARS CoV 2 Ag, QL IA, respiratory specimen [address] [place] [address], [phone] 5 13:22:39 rapid flu (A+B) [address] [place] [address], [phone] 5 13:22:39 Referral None recorded. Procedures None recorded. Surgeries None recorded. Imaging None recorded. Medication Orders ondansetron 4 mg disintegrat ing tablet 2024 [id number], [address] [place], [address], 5 12:41:16 Patient TargetsNo targets recorded. Patient [...] Name and Address Organization Details Recorded Time 02312 trazodone medicatio n Not available Not available Not available 03/19/2024 39548 RxNorm Not Available [facility] 5 10:04:02 73902 tramadol medicatio n Not available Not available Not available 03/19/2024 84448 RxNorm Not Available [facility] 5 10:04:02 Medications Name Sig Start Date [...] Address Organization Details Last Updated DateTime 5 033841. 816 g 175.26 cm 97.9 [degF] 100 [...] SNOMED-CT Code Diagnosis ICD10 Code Diagnosis Note [id number] Sushma Sanchez MD Main - [address] [address] 03/19/2024 12:19:53 03/19/2024 17:52:46 Nausea and vomiting [id number] R11.2 Evaluation in the field was performed by my physician loc[facility] urgent care colleague, as noted above, I provided real-time [...] course of cephalexin 1 wk ago. On physician loc[facility] urgent care eval VS wnl, exam unremarkab le. POC [...] Recorded Advance Directives Directive None Recorded Payers Insurance Date Sequence Insurance Name Policy Number Policy Claros Covered Member ID Claros Member ID Guarantor Name 03/19/2024 1 [facility] - DOS ON OR AFTER 2022 - DUAL ELIGIBLE - HALF-WAY OPTIONS AND ONE CARE (MEDICARE REPLACEMENT/ADV ANTAGE - HMO) Galina Doyle [id number] Galina Doyle Notes Date Note Type Note [...] Allergies Reviewed at 03/19/2024 - 10:04 Comments: Orthopedic Brace Maker verified the name//address and phone number. Pt [...] s/s and seek emergency treatment if needed Bender Machine Organization Information for Abel Ron Business Legal Name: [facility] Address: [address] [place] [address], [place] Cisner[place] [address], Manager Of Learning: Vito FITZGERALDIA No.: [id number] Bender Machine POC Test Results from [facility] (12:25:05) pH: 7.38 pH units pCO2: [...] .................... .................... .................... .................... .................... .................... . Bender Machine Note From Abel Ron: This 58-year-old female [...] .................... .................... .................... .................... .................... .................... . [facility] Consulted: Sushma Sanchez .................... .................... .................... .................... .................... .................... .................... . Disposition: Fulfilled Suhsma Sanchez MD [address] [place] [address],[facility], [place], [address], MILEY HATCH 03/19/2024 13:23:04 OBGyn Episode No OBEpisode recorded.
--- OUTSIDE RECORDS SUMMARY | 2024-06-21 10:55 | XMS_ITS | Clinical Summary ---
Author Organization [facility] Facility Address [address] [address] Care Team Providers Care Charter And Tour Bus Driver Name Role Phone Unavailable Primary Care Provider [...]
== END 2024-06-21 11:02 | disposition home or self-care (01) ==
LOC: HO.HOS 10:30
PROVIDERS: PCP Internal Medicine; Visit Provider Orthopaedic Surgery
DX: Z96.651 Presence of right artificial knee joint (principal)
CPT/HCPCS: 99024

== ENCOUNTER → 2024-06-21 10:29 | Outpatient (BNVA) | payer OTHER, SELFPAY | PROVIDERS: PCP Internal Medicine; Visit Provider Orthopaedic Surgery | DX: Z47.1 Aftercare following joint replacement surgery (principal); Z96.651 Presence of right artificial knee joint | CPT/HCPCS: 99212 ==

== ENCOUNTER 2024-09-19 10:25 | Outpatient (AMB) | payer OTHER, SELFPAY ==
--- NOTE | 2024-09-19 10:46 | A.OFFVIS_ITS ---
Vital Signs 09/19/24 10:50 Height 5 ft 9 in Weight 249 lb 1.957 oz BMI 36.8 BP 132/80 Blood Pressure Location Rt brachial Position Sitting Pulse 90 Pulse Source Pulse Oximeter Pulse Oximetry (%) 97 Oxygen Delivery Method Room Air Intake Visit Reasons: follow up Intake Note: Patient presents for Lupus follow up. Allergies tramadol Allergy (Severe, Verified 09/19/24 10:50) severe rash trazodone Adverse Reaction (Severe, Verified 09/19/24 10:50) hives Medication List - Last Reconciled 09/19/24 by Margaret Sheets MD acetaminophen 650 mg (2 x 325 mg) PO Q6H PRN 30 days amlodipine 2.5 mg PO QAM aspirin 81 mg PO DAILY bupropion HCl XL 150 mg PO QAM cholecalciferol (vitamin D3) 50 mcg PO QAM clonidine HCl 0.2 mg PO BID PRN diclofenac sodium 1% 4 grams topical QID docusate sodium 100 mg PO BID 4 days gabapentin 1,200 mg (2 x 600 mg) PO TID 90 days NS hydrochlorothiazide 50 mg PO QAM hydroxychloroquine 200 mg PO BID insulin aspart U-100 2 - 8 units subcut TIDAC insulin glargine (Lantus Solostar U-100 Insulin) 65 units subcut BEDTIME lisinopril 20 mg PO QAM metformin 1,000 mg PO BID mirtazapine 30 mg PO BEDTIME quetiapine 50 mg PO BEDTIME terbinafine HCl 250 mg PO QAM tizanidine 4 mg PO TID PRN triamcinolone acetonide 0.1% 1 appl topical BID HPI Comments Details: Patient is a 59-year-old female with hypertension, diabetes, polyarticular osteoarthritis status post right knee replacement, and systemic lupus erythematosus here today for follow up Interval History: Patient last seen 05/21/24 with me - On Hydroxychloroquine 200mg bid - Reported ongoing new discoid lesions and chronic complaints involving her hnads and wrists - Saphnelo added to her regimen Today, - On Hydroxychloroquine 200mg bid and IV Saphnelo 300mg every 4 weeks - Started saphnelo 06/2024 - Improvement in rash and joint pain Rheumatologic History: DISCOID LESIONS, SUB-ACUTE SKIN LESIONS 2009 ARTHRALGIAS, MILD PROTEINURIA - resolved; kidney bx 10/2019 - class II nephritis(sees Dr. 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 Saphnelo IV 300mg every 4 weeks PFSH Medical History Lupus Osteoarthritis of right knee Arthritis Chronic renal insufficiency Glaucoma Pulmonary embolism GERD (gastroesophageal reflux disease) Diabetes Lupus anticoagulant disorder HTN (hypertension) Depression Osteoarthritis Lumbar spondylosis Lower back pain Smoker Bilateral knee swelling Hypertension Surgical History Status post right knee replacement History of esophagogastroduodenoscopy (EGD) H/O colonoscopy Hx of excision of mass Hx laparoscopic cholecystectomy Hx of tubal ligation Hx of section Family History Brother Diabetes Mother Hypertension Breast cancer, Onset Age: 49 Father Hypertension Maternal Grandmother Breast cancer Maternal Aunt Breast cancer, Onset Age: 53 Social History Household Members: Family and Children Household Members Other:: children Housing: House Are you a primary home health care case manager to a significant other at home: No Do you presently have visiting nurse or other home services: Yes (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) Alcohol intake: never Comment: all ordered meds give Patient Tobacco Use Status: Current everyday Tobacco user Tobacco use type: Cigarette Cigarette Packs Per Day: 0.5 Years Smoked: 32 service: No Current occupational status: unemployed and disabled Gender identity: Female Review of Systems Const Details: Review of Systems Constitutional: Denies fever, chills, weight loss ENT: Denies vision changes, eye pain or eye redness, dental caries, dry mouth GI: Denies nausea, vomiting, diarrhea, abdominal pain, change in BM Pulm: Denies SOB, CASPER, hemoptysis, wheezing Cards: Denies chest pain, palpitations Skin: Denies Raynaud's, nail changes, photosensitivity, INDUSTRIAL RELATIONS REPRESENTATIVE: Denies headaches, recurrent falls MSK: as per HPI All other systems reviewed and are unremarkable except noted above Physical Exam Exam Exam: Vital signs reviewed Physical Examination CONSTITUITIONAL Patient alert and cooperative. Well appearing and in no apparent painful distress MSK Hands * Right Hand: Able to make a fist. No swelling or tenderness to palpation of these joints. No deformities noted. * Left Hand: Able to make a fist. No swelling or tenderness to palpation of these joints. No deformities noted. Wrists * Right Wrist: Full ROM. 70 degrees of wrist flexion, 80 degrees of wrist extension. No swelling or TTP * Left Wrist: Full ROM. 70 degrees of wrist flexion, 80 degrees of wrist extension. No swelling or TTP Elbows * Right Elbow: Full ROM. No swelling or TTP. No TTP of the medial and lateral epicondyles * Left Elbow: Full ROM. No swelling or TTP. No TTP of the medial and lateral epicondyles Shoulders * Right shoulder: Full ROM. No swelling noted. No TTP of the AC joint, subacromial bursa or posterior shoulder * Left shoulder: Full ROM. No swelling noted. No TTP of the AC joint, subacromial bursa or posterior shoulder Knees * Right knee: Full ROM. No swelling noted. No TTP of the knee joint lie or pes anserine bursa. Scar noted over anterior right knee * Left knee: Full ROM. No swelling noted. No TTP of the knee joint lie or pes anserine bursa. Ankles * Right ankle: Good ankle dorsiflexion and plantar flexion. No swelling. No TTP of the ankle joint * Left ankle: Good ankle dorsiflexion and plantar flexion. No swelling. No TTP of the ankle joint Feet * Right foot: Negative squeeze test * Left foot: Negative squeeze test Tender points? * No tenderness to palpation of the bilateral trapezius, supraspinatus, anterior costochondral junctions, bilateral suboccipital muscle insertions SKIN Healing discoid lesions with post inflammatory hyperpigmentation on her back and upper chest Vital Signs: Last Vital Signs Pulse 90 09/19/24 10:50 BP 132/80 09/19/24 10:50 Pulse Ox 97 09/19/24 10:50 Oxygen Delivery Method Room Air 09/19/24 10:50 BMI result Body Mass Index 36.8 Results Reviewed Results Reviewed: Laboratory Tests 05/17/24 10:43 WBC 5.6 RBC 3.87 L Hgb 11.1 L Hct 35.1 L Plt Count 285 D ESR 69 H Sodium 141 Potassium 3.9 Chloride 107 Carbon Dioxide 27 BUN 19 H Creatinine 0.82 AST 19 ALT 9 Alkaline Phosphatase 84 C-Reactive Protein 2.27 H Immunology labs 05/17/24 10:43 Double Strand DNA Ab 1 Complement C3 156 Complement C4 20 05/09/23 01/15/24 03/22/24 10:27 10:33 09:21 Sm (Andujar) Antibody 7.2 POS A SM/BUS OPERATOR IgG Antibody 6.8 POS A Beta-2-GPI IgG Ab >112.0 H >112.0 H Anti-Cardiolipin IgG Ab 89.3 H 88.9 H Urine tests 05/17/24 10:34 Urine Color Dark Yellow Urine Protein Trace Urine Blood Negative Protein/Creatinin Ratio 0.06 Assessment & Plan Assessment & Plan (1) Lupus: Comment: DISCOID LESIONS, SUB-ACUTE SKIN LESIONS 2009 ARTHRALGIAS, MILD PROTEINURIA - resolved; kidney bx 10/2019 - class II nephritis(sees Dr. Herrera) ++ Anti-DNA,++ Anti-BUS OPERATOR++Anti-Sm++ SS-A On hydroxychloroquine Code(s): M32.9 - Systemic lupus erythematosus, unspecified Category: Medical Plan: #SLE Patient is a 59-year-old female with systemic lupus erythematosus manifested with discoid lupus and arthralgias. History of proteinuria that resolved. Symptoms have improved on saphnelo Plan - Continue Anifrolumab infusions 300mg every 4 weeks - Continue plaquenil 300mg bid - Labs today: Labs before visit: CBC, CMP, ESR, CRP, C3, C4, dsDNA, UA, UPC - RTC 4 months - Labs before visit: CBC, CMP, ESR, CRP, C3, C4, dsDNA, UA, UPC (2) Long-term use of hydroxychloroquine: Comment: eye exam OK 01/14; 07/17, 05/19, 06/21, 09/24, 12/26. 06/27, 06/28 Code(s): Z79.899 - Other termite treater helper (current) drug therapy Category: Medical Plan: #Long-term Use of Hydroxychloroquine Discussed with patient the risks and benefits of hydroxychloroquine in managing the rheumatic condition Benefits include: - Reduced pain, reduce mortality, maintenance of remission and reduction of flares Risks include: - GI upset, skin hyperpigmentation, retinal toxicity (especially after more than 5 years of use), myopathy Advised yearly ophthalmology visits Last ophthalmology visit: 01/2024 (3) manager long term care (current) use of immunosuppressive biologic: Code(s): Z79.620 - intermediate (current) use of immunosuppressive biologic Plan: #Long-term use Anifrolumab Discussed with patient the risks and benefits of hydroxychloroquine in managing the rheumatic condition Benefits include: - Reduced pain, reduce mortality, maintenance of remission and reduction of flares Risks include: - Increased susceptibility to serious infections particularly viral infections like herpes zoster (shingles), respiratory tract infections and infusion related reactions Plan I spent 30 minutes reviewing the record and labs, taking a history, examining the patient, discussing the treatment plan, ordering diagnostic work up and documenting in the medical record Orders: Orders Anti DNA DS Antibody 4 Months M32.9 - Systemic lupus erythematosus, unspecified Complete Blood Count Auto Diff 4 Months M32.9 - Systemic lupus erythematosus, unspecified Vitamin D 25-OH (D2 and D3) 4 Months E55.9 - Vitamin D deficiency, unspecified Protein Creatinine Ratio, Ur 4 Months M32.9 - Systemic lupus erythematosus, unspecified UA w Microscopic 4 Months M32.9 - Systemic lupus erythematosus, unspecified Complement C3 4 Months M32.9 - Systemic lupus erythematosus, unspecified Complement C4 4 Months M32.9 - Systemic lupus erythematosus, unspecified Comprehensive Met. Panel 4 Months M32.9 - Systemic lupus erythematosus, unspecified C Reactive Protein 4 Months M32.9 - Systemic lupus erythematosus, unspecified Erythrocyte Sedimentation Rate 4 Months M32.9 - Systemic lupus erythematosus, unspecified Referrals Neurology Referral G45.9 - Transient cerebral ischemic attack, unspecified Coding Level of Care Code Est Pt Level 4 (39031) Complex EM visit Add On G2211 Diagnoses Lupus M32.9 Long-term use of hydroxychloroquine Z79.899 intermediate (current) use of immunosuppressive biologic Z79.620
[2024-09-19 10:50] VITALS: BP 132/80; PULSE 90; O2SAT 97; BMI 36.8
--- OUTSIDE RECORDS SUMMARY | 2024-09-19 11:31 | XMS_ITS | Clinical Summary ---
Author Organization [place] [address] [address] Formerly [facility] Building Address [address] [place] [address] Phone Care Team Providers Care Diamond Cutter Name Role Phone Darrel Tony MD Primary Care Provider [phone] Allergies Active Allergy Reactions Criticality Noted Date [...] needed (incontinence). - Does not apply Active blood-glucose transmitter (DEXCOM G6 TRANSMITTER MISC) transmitter every 3 months Active blood-glucose sensor (DEXCOM G6 SENSOR MISC) 1 sensor every 10 days Active triamcinolone (KENALOG) 0.1 % ointment APPLY TO AFFECTED AREA 2 TIMES DAILY FOR UP TO TWO WEEKS Active gabapentin (NEURONTIN) 600 mg tablet Take 2 tablets (1,200 mg total) by mouth 2 (two) times a day. Take 2 Tablets by mouth 2 Times Daily. - Oral Active lancets 30 gauge misc 1 Stick by Does not apply route 3 times daily. - Does not apply Active glucose blood test strip 1 Strip by Does not apply route 3 times daily. - Does not apply Active cloNIDine (CATAPRES) 0.2 mg tablet Take 1 tablet (0.2 mg total) by mouth 2 (two) times a day if needed (ANXIETY). Take 1 Tablet by mouth 2 times daily as needed for Other (Panic attacks). - Oral Active hydroxychloroqu ine (PLAQUENIL) 200 mg tablet Take 1 tablet (200 mg total) by mouth 2 (two) times a day. Take 1 Tab by mouth 2 times daily. - Oral Active mirtazapine (REMERON) 30 mg tablet Take 1 tablet (30 mg total) by mouth at bedtime. 024 Active tiZANidine (ZANAFLEX) 4 mg capsule Take 1 capsule (4 mg total) by mouth 3 (three) times a day. 024 Active blood-glucose transmitter ([place] G6 Transmitter) deviceIndicatio ns:Type 2 diabetes mellitus with other diabetic kidney complication ([facility] V24, [facility] V28) Change transmitter every 3 months 3 each 3 025 Active nystatin (MYCOSTATIN) 100,000 unit/gram powder APPLY TO AREA OF CONCERN 2-3 TIMES PER DAY WHENEVER RASH IS PRESENT. 15 g 3 025 Active cholecalciferol (VITAMIN D-3) 50 mcg (2,000 unit) tabletIndicatio ns:Vitamin D deficiency, unspecified TAKE 1 TABLET BY MOUTH EVERY DAY 90 tablet 025 Active buPROPion XL (WELLBUTRIN XL) 150 mg 24 hr tablet Take 1 tablet (150 mg total) by mouth 1 (one) time each day in the morning. 90 tablet 3 025 Active lidocaine (LIDODERM) 5 % patchIndication s:Essential hypertension, benign,Type 2 diabetes mellitus with microalbuminuri a, with long-term current use of insulin ([facility] V24, [facility] V28) Apply topically 1 (one) time each day. Place 1 Patch onto the skin every 24 hours. Apply for no more than 12 hours in any 24 hour period. - Transdermal 90 patch Active Additional Information Patient not taking.Reported on 08/30/2024 atorvastatin (LIPITOR) 10 mg tablet Take 1 tablet (10 mg total) by mouth 1 (one) time each day. 90 each 2024 Active ammonium lactate (AmLactin) 12 % lotion Apply topically if needed for dry skin. 400 g 2025 Active lisinopriL (PRINIVIL,ZESTR IL) 20 mg tablet Take 1 tablet (20 mg total) by mouth 1 (one) time each day. 90 tablet Active hydroCHLOROthia zide (HYDRODIURIL) 50 mg tablet Take 1 tablet (50 mg total) by mouth 1 (one) time each day. 90 tablet Active amLODIPine (NORVASC) 2.5 mg tablet Take 1 Tablet by mouth daily. With the 5 mg daily for a total of 7.5 mg - Oral 90 tablet Active amLODIPine (NORVASC) 5 mg tablet Take 1 Tablet by mouth daily. With the 2.5 mg daily for a total of 7.5 mg - Oral 90 tablet Active QUEtiapine (SEROquel) 100 mg tablet Take 1.5 tablets (150 mg total) by mouth at bedtime. Active insulin glargine (LANTUS SoloStar) 100 unit/mL (3 mL) injection pen Inject 35 Units under the skin at bedtime. Active oxyCODONE (ROXICODONE) 10 mg immediate release tabletIndicatio ns:Other chronic pain Take 0.5 tablets (5 mg total) by mouth every 8 (eight) hours if needed for severe pain for up to 28 days. Max Daily Amount: 15 mg 42 tablet 2024 Active metFORMIN (GLUCOPHAGE) 1,000 mg tablet TAKE 1 TABLET BY MOUTH TWICE A DAY WITH FOOD 168 tablet 2 Active metFORMIN (GLUCOPHAGE) 1,000 mg tablet TAKE 1 TABLET BY MOUTH TWICE A DAY WITH FOOD 60 tablet 5 025 2024 Discontinued oxyCODONE (ROXICODONE) 10 mg immediate release tabletIndicatio ns:Other chronic pain Take 0.5 tablets (5 mg total) by mouth every 8 (eight) hours if needed for severe pain for up to 28 days. Max Daily Amount: 15 mg 42 tablet 025 2024 Discontinued(R eorder) Active Problems Problem Noted Date Diagnosed Date Transient neurological symptoms 08/30/2024 Morbid obesity ([facility] V24, [facility] V28) 2024 CKD (chronic kidney disease) stage 2, GFR 60-89 ml/min 12/12/2023 Essential hypertension, benign 11/08/2023 Class 2 obesity due to exces s calories with body mass index (BMI) of 36.0 to 36.9 in adult 11/08/2023 Discoid lupus 11/08/2023 Esophageal reflux 11/08/2023 Systemic lupus erythematosus ([facility] V24, [facility] V28) 11/08/2023 Depression, major 11/08/2023 Fibromyalgia 11/08/2023 Carpal tunnel syndrome, bilateral 11/08/2023 Type 2 diabetes mellitus, wi th long-term current use of insulin ([facility] V24, [facility] V28) 11/08/2023 Adrenal adenoma, left 11/08/2023 Type 2 diabetes mellitus wit h microalbuminuria, with long-term current use of insulin ([facility] V24, [facility] V28) 11/08/2023 Microalbuminuria 11/08/2023 Lupus anticoagulant positive 11/08/2023 Vitamin D deficiency 11/08/2023 Diabetic polyneuropathy asso ciated with type 2 diabetes mellitus ([facility] V24, [facility] V28) 11/08/2023 Other chronic pain 11/08/2023 Pancreatitis 11/08/2023 Primary osteoarthritis of right knee 11/08/2023 Encounters Date Type Department Care Team Description 08/30/2024 1:50 PM EDT - 08/30/2024 11:09 PM EDT Hospital Encounter [facility] [address] [place] [address] NotDemond stern MD Flores, Carlos M, MD TIA (transient ischemic attack) (Primary Dx) Discharge Disposition: Left Against Medical Advice 07/03/2024 7:45 AM EDT Office Visit Endocrinology - [address] [phone] Trish Hyatt PA Type 2 diabetes mellitus with microalbuminuria, with long-term current use of insulin ([facility] V24, [facility] V28) (Primary Dx); Class 2 obesity due to excess calories with body mass index (BMI) of 36.0 to 36.9 in adult, unspecified whether serious comorbidity present 06/26/2024 11:15 AM EDT Office Visit Internal Medicine - [address] [phone] Lu Chamberlain, OTILIO Carpal tunnel syndrome, bilateral (Primary Dx); Diabetic polyneuropathy associated with type 2 diabetes mellitus ([facility] V24, [facility] V28); Fibromyalgia; Other chronic pain; Essential hypertension, benign; Gastroesophageal reflux disease without esophagitis; Other chronic pancreatitis ([facility] V24, [facility] V28); Vitamin D deficiency; CKD (chronic kidney disease) stage 2, GFR 60-89 ml/min; Primary osteoarthritis of right knee; Type 2 diabetes mellitus with microalbuminuria, with long-term current use of insulin ([facility] V24, [facility] V28); Lupus anticoagulant positive; Severe episode of recurrent major depressive disorder, without psychotic features ([facility] V24, [facility] V28); Microalbuminuria; Morbid obesity ([facility] V24, [facility] V28); Systemic lupus erythematosus, unspecified SLE type, unspecified organ involvement status ([facility] V24, [facility] V28) from Last 3 Months Immunizations Name Administration [...] CHOLECYSTECTOMY 1998 PROCEDURE: LAPAROSCOPY, CHOLECYSTECTOMY SECTION PROCEDURE: NM DELIVERY ONLY; COMMENT: X4 TUBAL LIGATION PROCEDURE: HISTORICAL TUBAL LIGATION CHOLECYSTECTOMY PROCEDURE: NM LAPAROSCOPY SURG CHOLECYSTECTOMY Medical History Medical History Date Comments Other pulmonary embolism and infarction 1998 DX:Other pulmonary embolism and infarction 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; COMMENT: scalp, arms; + biopsy 11/2005 Systemic lupus erythematosus ([facility] V24, [facility] V28) 09/01/2006 DX:Systemic lupus erythemato espinoza (HCC); COMMENT: DISCOID LESIONS, SUB-ACUTE SKIN LESIONS ARTHRALGIAS, MILD PROTEINURIA + Anti-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, 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, 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, SS-A Esophageal reflux DX:Esophageal reflux Essential hypertension, benign 05/30/2005 D X:Essential hypertension, benign Obesity DX:Obesity 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 No 09/13/2024 Food Access & Nutrition Answer Date Rec orded Do you have access to a vari ety of food including fruits and vegetables? No 09/13/2024 Access to Healthcare Answer Date Record ed Within the last 3 months, ho w many times did you visit the emergency department for your medical care? 1 09/13/2024 Health Literacy Answer Date Recorded How often do you need to hav e someone help you when you read instructions, pamphlets, or other written material from your doctor or pharmacy? Rarely 09/13/2024 Caregiver: How often do you need to have someone help you when you read instructions, pamphlets, or other written material from your doctor or pharmacy? Not on file 09/13/2024 Financial Risk Answer Date Recorded How hard is it for you to pa y for the very basics like food, housing, medical care, and air conditioning / heating? Very hard 09/13/2024 Transportation Answer Date Recorded Has the lack of transportati on kept you from meetings, work, or from getting things needed for daily living? Yes Has the lack of transportati on kept you from medical appointments or from getting medications? Yes 09/13/2024 Social Isolation Answer Date Recorded How often do you feel lonely or isolated from those around you? Sometimes 09/13/2024 Food Risk Answer Date Recorded Within the past 12 months we worried whether our food would run out before we got money to buy more. Sometimes true 025 Within the past 12 months th e food we bought just didn't last and we didn't have money to get more. Often true 09/13/2024 Dependent Care Answer Date Recorded Do you need help finding or paying for care for your loved ones. For example, early childhood teacher assistant or elderly care for an older adult? No 09/13/2024 Education Answer Date Recorded Do you think completing more education or training, like finishing a GED, going to college, or learning a trade, would be helpful for you? No 09/13/2024 Employment and Income Answer Date Recor ded During the last four weeks, have you been actively looking for work? No 09/13/2024 Living Situation Answer Date Recorded What is your living situation? 0 09/13/2024 Comments No Sex and Gender Information Value Date Recorded Sex Assigned at Female 01/05/2024 2:55 PM EST Legal Sex Female 11:24 PM EST Gender Identity Female 01/05/2024 2:55 PM EST Sexual Orientation Straight 01/05/2024 2: 55 PM EST Obstetrics History Last Filed Vital Signs Vital Sign Reading Time Taken Comments Blood Pressure 130/77 08/30/2024 11:08 PM EDT Pulse 91 08/30/2024 11:08 PM EDT Temperature 36.7 C (98 F) 08/30/2024 11:08 PM EDT Respiratory Rate 18 08/30/2024 11:08 PM EDT Oxygen Saturation 99% 08/30/2024 11:08 PM EDT Inhaled Oxygen Concentration - - Weight 112 kg (246 lb) 08/30/2024 1:47 PM EDT Height 175.3 cm (5' 9 ) 08/30/2024 1:47 PM EDT Body Mass Index 36.33 08/30/2024 1:47 PM EDT Plan of Treatment Upcoming Encounters Date Type Department Care Team (Late st Contact Info) Description 09/19/2024 1:00 PM EDT Office Visit Internal Medicine - [address] [phone] Lu Chamberlain NP [address] [place] [phone] 12/18/2024 11:00 AM EST Office Visit Endocrinology - [address] [phone] Trish Hyatt PA [address] [place] [phone] Health Maintenance Due Date Last Done Comments Diabetes: Annual Foot Exam 04/14/1977 Hepatitis B Vaccines (1 of 3 - 19+ 3-dose series) 04/14/1986 Zoster Vaccines (1 of 2) 04/14/1986 Pneumococcal Vaccine: 50+ Years (2 of 2 - PCV) 03/26/2019 03/26/2018 COVID-19 Vaccine (3 - Moderna risk series) 10/08/2020 09/10/2020, 08/20/2020 Colorectal Cancer Screening: Colonoscopy 01/14/2022 HIV Screening 01/14/2022 Hepatitis C Screening 01/14/2022 Medicare Annual Wellness Visit 01/14/2022 Diabetes: Annual Urine Albumin-Creatinine Ratio (uACR) 08/31/2023 08/30/2022 Influenza Vaccine (#1) 2024 , 11/26/2019, 12/06/2016, Additional history exists Diabetes: Blood Sugar Control Test (HGBA1C) 03/02/2025 08/30/2024, 10/26/2023 Breast Cancer Screening 03/30/2025 03/30/2023 Diabetes: Annual Retina Eye Exam 07/02/2025 07/02/2024 Diabetes: Annual GFR (Glomerular Filtration Rate) 08/30/2025 08/30/2024, 10/26/2023, 06/27/2023 Hypertension/CHF/CAD Annual BMP Blood Test 08/30/2025 08/30/2024, 10/26/2023, 06/27/2023 Social Influencers of Health Screening 09/13/2025 09/13/2024 Cervical Cancer Screening: Pap Smear 05/02/2026 05/03/2023 DTaP,Tdap,and Td Vaccines (2 - Td or Tdap) 03/26/2028 03/26/2018 Cholesterol Screening (Lipid Panel) 08/30/2029 08/30/2024, 10/26/2023 Depression Screening Completed 09/13/2024 HIB Vaccines Aged Out No longer eligi [...] Procedure Name Priority Date/Time Associated Diagnosis Comments POCT GLUCOSE BLOOD Routine 08/30/2024 8: 23 PM EDT BRODY URINE CULTURE TUBE Routine 08/30/2024 7:33 PM EDT URINALYSIS WITH REFLEX MICROSCOPIC AND CULTURE Routine 08/30/2024 7:33 PM EDT DRUG ABUSE SCREEN 8A PANEL, URINE Routine 08/30/2024 7:33 PM EDT URINALYSIS WITH REFLEX MICROSCOPIC AND CULTURE Routine 08/30/2024 7:33 PM EDT MR BRAIN WO CONTRAST Routine 08/30/2024 5:49 PM EDT POCT GLUCOSE BLOOD Routine 08/30/2024 4: 28 PM EDT ECG 12-LEAD STAT 08/30/2024 2:[address] ANGIO HEAD/NECK STROKE WO AND/OR W CONTRAST STAT 08/30/2024 2:[address] HEAD STROKE WO CONTRAST STAT 08/30/2024 2:11 PM EDT ETHANOL STAT Add-on 08/30/2024 2:02 PM EDT MAGNESIUM STAT Add-on 08/30/2024 2:02 PM EDT LIPID PANEL WITH REFLEX TO DIRECT LDL Add-On 08/30/2024 2:02 PM EDT VITAMIN B12 Add-On 08/30/2024 2:02 PM EDT HEMOGLOBIN A1C Add-On 08/30/2024 2:02 PM EDT CBC WITH AUTO DIFFERENTIAL STAT 08/30/2024 2:02 PM EDT COMPREHENSIVE METABOLIC PANEL STAT 08/30/2024 2:02 PM EDT PROTHROMBIN TIME WITH INR STAT 08/30/2024 2:02 PM EDT ACTIVATED PARTIAL THROMBOPLASTIN TIME STAT 08/30/2024 2:02 PM EDT CBC AND DIFFERENTIAL STAT 08/30/2024 2:02 PM EDT POCT GLUCOSE BLOOD Routine 08/30/2024 1: 56 PM EDT EXTERNAL DIABETIC RETINA EYE EXAM 07/02/2024 PAP SMEAR Routine 05/03/2023 SCREENING MAMMOGRAPHY BI 2-VIEW BREAST INC CAD Routine 03/30/2023 9:57 AM EST Encounter for screening mammogram for malignant neoplasm of breast HM URINE ALBUMIN CREATININE RATIO Routine 08/30/2022 from Last 3 Months or Most Recently Relevant to Health Maintenance Results * (ABNORMAL) POCT Glucose, blood (08/30/2024 8:23 PM EDT) Only the most recent of3 resultswithin the time period is included. Glucose POCT 124(H) 70 - 100 mg/dL 08/30/2024 8:23 PM EDT [facility] Blood Capillary blood specimen / Unknown 08/30/2024 8:23 PM EDT 08/30/2024 8:24 PM EDT us Rodrigo Farooq MD LAB POINT OF CARE TE ST DOCKED DEVICE UNSOLICITED RESULTS Final Result [facility] [address] [place] [address], [place] [phone] * (ABNORMAL) Urinalysis with reflex microscopic and culture (08/30/2024 7:33 PM EDT) Specific [place] Urine >1.045(H) 1.003 - 1.030 LAB URINALYSIS - AUTOMATED METHOD 08/30/2024 8:08 PM [facility] pH, Urine 6.0 5.0 - 8.0 pH LAB URINALYSIS - AUTOMATED METHOD 08/30/2024 8:08 PM [facility] Leukocytes, Urine Negative Negative LAB URINALYSIS - AUTOMATED METHOD 08/30/2024 8:08 PM [facility] Nitrite, Urine Negative Negative LAB URINALYSIS - AUTOMATED METHOD 08/30/2024 8:08 PM [facility] Protein, Urine Trace <=Trace mg/dL LAB URINALYSIS - AUTOMATED METHOD 08/30/2024 8:08 PM [facility] Glucose, Urine Negative Negative mg/dL LAB URINALYSIS - AUTOMATED METHOD 08/30/2024 8:08 PM [facility] Ketones, Urine Negative Negative mg/dL LAB URINALYSIS - AUTOMATED METHOD 08/30/2024 8:08 PM [facility] Urobilinogen , Urine 1.0 0.2 - 1.0 mg/dL LAB URINALYSIS - AUTOMATED METHOD 08/30/2024 8:08 PM [facility] Bilirubin, Urine Negative Negative LAB URINALYSIS - AUTOMATED METHOD 08/30/2024 8:08 PM [facility] Blood, Urine Negative Negative LAB URINALYSIS - AUTOMATED METHOD 08/30/2024 8:08 PM [facility] Urine Urine specimen obtained by clean catch procedure / Unknown Non-blood Collection / Unknown 08/30/2024 7:33 PM EDT 08/30/2024 7:48 PM EDT us Liss Puentes NP LAB URINE ORDERABLES Fin al Result Performing Organization Address [facility]/ZIP Co de Phone Number [facility] [address] [place] [address], [place] [phone] * Brody urine culture tube (08/30/2024 7:33 PM EDT) Extra Tube Hold for add-ons. 08/30/2024 9:01 PM EDT [facility] Comment:Auto resulted. Urine Urine specimen obtained by clean catch procedure / Unknown Non-blood Collection / Unknown 08/30/2024 7:33 PM EDT 08/30/2024 7:48 PM EDT Liss Puentes NP LAB URINE ORDERABLES Fin al Result Performing Organization Address [facility] de Phone Number [facility] [address] [place] [address], [place] [phone] * Drug abuse screen 8a panel, urine (08/30/2024 7:33 PM EDT) Amphetamine Screen, Ur Negative Negative LAB CHEMISTRY METHOD 08/30/2024 8:24 PM EDT [facility] Comment:Certain OTC medicati ons containing ephedrine, phenylephrine, pseudoephedrine and phenylpropanolamine can cause false positive results. Barbiturate Screen, Ur Negative Negative LAB CHEMISTRY METHOD 08/30/2024 8:24 PM EDT [facility] Benzodiazepine Screen, Ur Negative Negative LAB CHEMISTRY METHOD 08/30/2024 8:24 PM EDT [facility] Cocaine Screen, Ur Negative Negative LAB CHEMISTRY METHOD 08/30/2024 8:24 PM EDT [facility] Opiate Screen, Ur Negative Negative LAB CHEMISTRY METHOD 08/30/2024 8:24 PM EDT [facility] Cannabinoid (THC) Screen, Ur Negative Negative LAB CHEMISTRY METHOD 08/30/2024 8:24 PM EDT [facility] Comment:Specimens from patie nts taking pantoprazole sodium (Protonix) have been shown to produce false positive results. Oxycodone Screen, Ur Negative Negative LAB CHEMISTRY METHOD 08/30/2024 8:24 PM EDT [facility] Fentanyl, Ur Negative Negative LAB CHEMISTRY METHOD 08/30/2024 8:24 PM EDT [facility] Urine Urine specimen obtained by clean catch procedure / Unknown Non-blood Collection / Unknown 08/30/2024 7:33 PM EDT 08/30/2024 7:48 PM EDT Narrative [facility] - 08/30/2024 8:24 PM EDT Assay cutoffs: Amphetamines 1000 ng/mL Barbiturates 200 ng/mL Benzodiazepines 200 ng/mL Cocaine 300 ng/mL Fentanyl 1 ng/mL Opiates 300 ng/mL Oxycodone 100 ng/mL THC 50 ng/mL Semi-quantitative assay for screening purposes only. Unconfirmed screening result should not be used for non-medical purposes. *ALTERNATE METHOD CONFIRMATION DONE UPON REQUEST ONLY* Liss Puentes [employer] LAB URINE ORDERABLES Fin al Result [facility] [address] [place] [address], * MR Brain wo Contrast (08/30/2024 5:49 PM EDT) Anatomical Region Laterality Modality Head and Neck Magnetic Resonan ce 08/30/2024 6:11 PM EDT Impressions 08/30/2024 6:11 PM EDT No acute findings. This document has been electronically signed by: Winsome Naylor MD on 08/30/2024 18:11:31 Narrative 08/30/2024 6:11 PM EDT INDICATION: Transient ischemic attack (TIA) MR Brain without gadolinium Comparison: None provided Findings: No restricted diffusion. No intra-axial mass or hemorrhage. No midline shift. No hydrocephalus. Vascular flow voids are intact. Orbital contents are unremarkable. The sinuses and mastoid air cells are clear. No focal bone lesion. Procedure Note Winsome Naylor MD - 08/30/2024 INDICATION: Transient ischemic attack (TIA) MR Brain without gadolinium Comparison: None provided Findings: No restricted diffusion. No intra-axial mass or hemorrhage. No midline shift. No hydrocephalus. Vascular flow voids are intact. Orbital contents are unremarkable. The sinuses and mastoid air cells are clear. No focal bone lesion. IMPRESSION: No acute findings. This document has been electronically signed by: Winsome Naylor MD on 08/30/2024 18:11:31 us Liss Puentes [employer] IMG MRI PROCEDURES Final Result * ECG 12 lead (08/30/2024 2:26 PM EDT) Ventricular Rate ECG 89 BPM GEMUSE Atrial Rate 89 BPM GEMUSE P-R Interval 130 ms GEMUSE QRS Duration 88 ms GEMUSE Q-T Interval 392 ms GEMUSE QTc 476 ms GEMUSE P Wave Hardy 65 degrees GEMUSE R Hardy 44 degrees GEMUSE T Hardy 25 degrees GEMUSE ECG Interpretation Normal sinus rhythm Normal ECG When compared with ECG of 29-JAN-2023 15:12, No significant change was found Confirmed by MARCELINO ADLER ([id number]) on 08/31/2024 3:22:31 PM GEMUSE 08/30/2024 2:26 PM EDT 08/31/2024 3:22 PM EDT us Demond Vuong MD ECG ORDERABLES Final Result GEMUSE * CT Head Stroke wo Contrast (08/30/2024 2:11 PM EDT) Anatomical Region Laterality Modality Head and Neck Computed Tomogra phy 08/30/2024 2:13 PM EDT Impressions 08/30/2024 2:14 PM EDT NO INTRACRANIAL HEMORRHAGE. Findings communicated to Dr. Vuong at approximately 2:13PM. -------- FINAL REPORT -------- Dictated By: Reji Cam Dictated Date: 08/30/2024 14:13 ET Assigned Physician: Reji Cam Reviewed and Electronically Signed By: Reji Cam Signed Date: 08/30/2024 14:14 ET Workstation ID: [id number] Transcribed By: Self Edit Transcribed Date: 08/30/2024 14:13 ET Narrative 08/30/2024 2:14 PM EDT PROCEDURE: HEAD CT INDICATION: Neuro deficit, acute, stroke suspected TECHNIQUE: CT of the head without intravenous contrast. Multiplanar reformats. The examination was performed utilizing dose reduction techniques. Total DLP COMPARISON: No priors available. FINDINGS: No acute territorial infarct, mass effect, or intracranial hemorrhage. Calcifications along the falx. No significant white matter disease No hydrocephalus. Visualized paranasal sinuses are clear. Mastoid air cells are clear. No calvarial fracture. Procedure Note Reji Cam MD - 08/30/2024 PROCEDURE: HEAD CT INDICATION: Neuro deficit, acute, stroke suspected TECHNIQUE: CT of the head without intravenous contrast. Multiplanarreformats. The examination was performed utilizing dose reductiontechniques. Total DLP COMPARISON: No priors available. FINDINGS: No acute territorial infarct, mass effect, or intracranial hemorrhage.Calcifications along the falx. No significant white matter disease No hydrocephalus. Visualized paranasal sinuses are clear. Mastoid air cells are clear. No calvarial fracture. IMPRESSION: NO INTRACRANIAL HEMORRHAGE. Findings communicated to Dr. Vuong at approximately 2:13PM. -------- FINAL REPORT -------- Dictated By: Reji Cam Dictated Date: 08/30/2024 14:13 ET Assigned Physician: Reji Cam Reviewed and Electronically Signed By: Reji Cam Signed Date: 08/30/2024 14:14 ET Workstation ID: [id number] Transcribed By: Self Edit Transcribed Date: 08/30/2024 14:13 ET us Demond Vuong MD IM CT PROCEDURES Final Result * CT Angio Head/Neck Stroke wo and/or w Contrast (08/30/2024 2:11 PM EDT) Anatomical Region Laterality Modality Head and Neck Computed Tomogra phy 08/30/2024 2:43 PM EDT Impressions 08/30/2024 2:50 PM EDT NO LARGE VESSEL OCCLUSION. -------- FINAL REPORT -------- Dictated By: Reji Cam Dictated Date: 08/30/2024 14:43 ET Assigned Physician: Reji Cam Reviewed and Electronically Signed By: Reji Cam Signed Date: 08/30/2024 14:50 ET Workstation ID: [id number] Transcribed By: Self Edit Transcribed Date: 08/30/2024 14:44 ET Narrative 08/30/2024 2:50 PM EDT PROCEDURE: CTA HEAD AND NECK INDICATION: Neuro deficit, acute, stroke suspected TECHNIQUE: CTA of the head and neck with intravenous contrast. Multiplanar reformats. The examination was performed utilizing dose reduction techniques.3-D or MIP images were produced with postprocessing on an independent computer workstation. 90cc Omnipaque 370 injected. Scan was analyzed using [employer] Contact AI based computer aided triage software. Total DLP: 2679 mGy/cm COMPARISON: No priors available. FINDINGS: Noncon Brain: Dictated separately CTA Neck: There is a left-sided aortic arch. Great vessels are patent with conventional anatomy. Significant motion artifact limits evaluation of the lower neck particularly some irregularity seen in the left common carotid artery is presumably artifactual. Visualized lung apices are clear. Thyroid nodules. CTA Head: Intracranial portions of the internal carotid arteries are patent. Proximal middle and anterior circulation is patent. Vertebrobasilar system is patent. Proximal diplomatic officer are patent. Major dural venous sinuses opacify normally with contrast. Extracranial structures are unremarkable. Degenerative changes in the bones. Procedure Note Reji Cam MD - 08/30/2024 PROCEDURE: CTA HEAD AND NECK INDICATION: Neuro deficit, acute, stroke suspected TECHNIQUE: CTA of the head and neck with intravenous contrast. Multiplanarreformats. The examination was performed utilizing dose reductiontechniques.3-D or MIP images were produced with postprocessing on anindependent computer workstation. 90cc Omnipaque 370 injected. Scan wasanalyzed using [employer] Contact AI based computer aided triage software. Total DLP: 2679 mGy/cm COMPARISON: No priors available. FINDINGS: Noncon Brain: Dictated separately CTA Neck: There is a left-sided aortic arch. Great vessels are patent withconventional anatomy. Significant motion artifact limits evaluation ofthe lower neck particularly some irregularity seen in the left commoncarotid artery is presumably artifactual. Visualized lung apices are clear. Thyroid nodules. CTA Head: Intracranial portions of the internal carotid arteries are patent. Proximal middle and anterior circulation is patent. Vertebrobasilar system is patent. Proximal diplomatic officer are patent. Major dural venous sinuses opacify normally with contrast. Extracranial structures are unremarkable. Degenerative changes in thebones. IMPRESSION: NO LARGE VESSEL OCCLUSION. -------- FINAL REPORT -------- Dictated By: Reji Cam Dictated Date: 08/30/2024 14:43 ET Assigned Physician: Reji Cam Reviewed and Electronically Signed By: Reji Cam Signed Date: 08/30/2024 14:50 ET Workstation ID: [id number] Transcribed By: Self Edit Transcribed Date: 08/30/2024 14:44 ET Demond uVong MD IM CT PROCEDURES Final Result * Lipid panel with reflex to direct LDL (08/30/2024 2:02 PM EDT) Cholesterol 133 0 - 200 mg/dL LAB CHEMISTRY METHOD 08/30/2024 6:51 PM EDT [facility] Triglycerides 123 0 - 150 mg/dL LAB CHEMISTRY METHOD 08/30/2024 6:51 PM EDT [facility] HDL 52 >=40 mg/dL LAB CHEMISTRY METHOD 08/30/2024 6:51 PM EDT [facility] LDL Calculated 56 0 - 100 mg/dL LAB CHEMISTRY METHOD 08/30/2024 6:51 PM EDT [facility] VLDL Cholesterol Bishop 24.6 mg/dL LAB CHEMISTRY METHOD 08/30/2024 6:51 PM EDT [facility] Non HDL Chol. (LDL+VLDL) 81 <145 mg/dL LAB CHEMISTRY METHOD 08/30/2024 6:51 PM EDT [facility] Chol/HDL Ratio 2.6 0.0 - 4.4 LAB CHEMISTRY METHOD 08/30/2024 6:51 PM EDT [facility] Blood Venous blood specimen / Unknown Venipuncture / Unknown 08/30/2024 2:02 PM EDT 08/30/2024 2:25 PM EDT us Liss Puentes NP LAB BLOOD ORDERABLES Fin al Result [facility] [address] [place] [address], * CBC auto differential (08/30/2024 2:02 PM EDT) WBC 7.0 4.8 - 10.8 K/mcL LAB HEMETOLOGY METHOD 08/30/2024 2:35 PM EDT [facility] RBC 4.60 3.80 - 4.80 M/mcL LAB HEMETOLOGY METHOD 08/30/2024 2:35 PM EDT [facility] Hemoglobin 13.2 11.5 - 16.0 g/dL LAB HEMETOLOGY METHOD 08/30/2024 2:35 PM EDT [facility] Hematocrit 40.7 35.0 - 47.0 % LAB HEMETOLOGY METHOD 08/30/2024 2:35 PM EDT [facility] MCV 88.3 79.0 - 98.0 FL LAB HEMETOLOGY METHOD 08/30/2024 2:35 PM EDT [facility] MCH 28.6 27.0 - 32.0 pcg LAB HEMETOLOGY METHOD 08/30/2024 2:35 PM EDT [facility] MCHC 32.4 32.0 - 37.0 g/dL LAB HEMETOLOGY METHOD 08/30/2024 2:35 PM EDT [facility] RDW 13.9 11.0 - 15.0 % LAB HEMETOLOGY METHOD 08/30/2024 2:35 PM EDT [facility] Platelets 233 130 - 400 K/mcL LAB HEMETOLOGY METHOD 08/30/2024 2:35 PM T [facility] MPV 10.3 7.0 - 11.0 FL LAB HEMETOLOGY METHOD 08/30/2024 2:35 PM EDT [facility] NRBC 0.0 <1.0 % LAB HEMETOLOGY METHOD 08/30/2024 2:35 PM T [facility] NRBC Absolute 0.00 <0.10 K/mcL LAB HEMETOLOGY METHOD 08/30/2024 2:35 PM [facility] Neutrophils Relative 40.1 % LAB HEMETOLOGY METHOD 08/30/2024 2:35 PM T [facility] Lymphocytes Relative 50.1 % LAB HEMETOLOGY METHOD 08/30/2024 2:35 PM [facility] Monocytes Relative 5.9 % LAB HEMETOLOGY METHOD 08/30/2024 2:35 PM [facility] Eosinophils Relative 2.7 % LAB HEMETOLOGY METHOD 08/30/2024 2:35 PM [facility] Basophils Relative 0.9 % LAB HEMETOLOGY METHOD 08/30/2024 2:35 PM [facility] Immature Granulocytes Relative 0.3 % LAB HEMETOLOGY METHOD 08/30/2024 2:35 PM EDT [facility] Neutrophils Absolute 2.81 1.50 - 7.00 K/mcL LAB HEMETOLOGY METHOD 08/30/2024 2:35 PM EDT [facility] Lymphocytes Absolute 3.50 1.00 - 5.00 K/mcL LAB HEMETOLOGY METHOD 08/30/2024 2:35 PM EDT [facility] Monocytes Absolute 0.41 0.20 - 1.00 K/mcL LAB HEMETOLOGY METHOD 08/30/2024 2:35 PM EDT [facility] Eosinophils Absolute 0.19 0.00 - 0.50 K/mcL LAB HEMETOLOGY METHOD 08/30/2024 2:35 PM EDT [facility] Basophils Absolute 0.06 0.00 - 0.20 K/[facility] LAB HEMETOLOGY METHOD 08/30/2024 2:35 PM EDT [facility] Immature Granulocytes Absolute 0.02 0.00 - 0.03 K/[facility] LAB HEMETOLOGY METHOD 08/30/2024 2:35 PM EDT [facility] Blood Venous blood specimen / Unknown Venipuncture / Unknown 08/30/2024 2:02 PM EDT 08/30/2024 2:25 PM EDT us Demond Vuong MD LAB BLOOD ORDERABLES Final Resul t Performing Organization Address City/[facility]/ZIP Co de Phone Number [facility] [address] [place] [address], [place] [phone] * (ABNORMAL) APTT (08/30/2024 2:02 PM EDT) aPTT 68.6(H) 24.1 - 39.3 sec LAB COAGULATION METHOD 08/30/2024 3:23 PM EDT [facility] Blood Venous blood specimen / Unknown Venipuncture / Unknown 08/30/2024 2:02 PM EDT 08/30/2024 2:25 PM EDT Narrative [facility] - 08/30/2024 3:23 PM EDT PTT CONFIRMED WITH HEPZYME. us Demond Vuong MD LAB BLOOD ORDERABLES Final Resul t [facility] [address] [place] [address], [place] [phone] * Protime-INR (08/30/2024 2:02 PM EDT) [facility] Protime 12.2 10.6 - 13.9 sec LAB COAGULATION METHOD 08/30/2024 2:39 PM EDT [facility] INR 1.0 LAB COAGULATION METHOD 08/30/2024 2:39 PM EDT [facility] Blood Venous blood specimen / Unknown Venipuncture / Unknown 08/30/2024 2:02 PM EDT 08/30/2024 2:25 PM EDT Demond Vuong MD LAB BLOOD ORDERABLES Final Resul t Performing Organization Address [facility]/ZIP Co de Phone Number [facility] [address] [place] [address], * Magnesium (08/30/2024 2:02 PM EDT) [facility] Magnesium 1.9 1.9 - 2.6 mg/dL LAB CHEMISTRY METHOD 08/30/2024 6:51 PM EDT [facility] Blood Venous blood specimen / Unknown Venipuncture / Unknown 08/30/2024 2:02 PM EDT 08/30/2024 2:25 PM EDT Liss Puentes NP LAB BLOOD ORDERABLES Fin al Result [facility] [address] [place] [address], [place] [phone] * Hemoglobin A1c (08/30/2024 2:02 PM EDT) [facility] Hemoglobin A1C 5.1 <6.5 % LAB CHEMISTRY METHOD 08/30/2024 8:29 PM EDT [facility] Mean Bld Glu Estim. 100 mg/dL LAB CHEMISTRY METHOD 08/30/2024 8:29 PM EDT [facility] Blood Venous blood specimen / Unknown Venipuncture / Unknown 08/30/2024 2:02 PM EDT 08/30/2024 2:25 PM EDT Liss Puentes NP LAB BLOOD ORDERABLES Fin al Result Performing Organization Address City/[facility]/ZIP Co de Phone Number [facility] [address] [place] [address], [place] [phone] * Vitamin B12 (08/30/2024 2:02 PM EDT) [facility] Vitamin B-12 580 250 - 900 pcg/mL LAB CHEMISTRY METHOD 08/30/2024 7:13 PM EDT [facility] Blood Venous blood specimen / Unknown Venipuncture / Unknown 08/30/2024 2:02 PM EDT 08/30/2024 2:25 PM EDT Liss Puentes NP LAB BLOOD ORDERABLES Fin al Result Performing Organization Address [facility]/ZIP Co de Phone Number [facility] [address] [place] [address], [place] [phone] * Ethanol (08/30/2024 2:02 PM EDT) [facility] Ethanol Level <3 0 - 10 mg/dL LAB CHEMISTRY METHOD 08/30/2024 6:51 PM EDT [facility] Blood Venous blood specimen / Unknown Venipuncture / Unknown 08/30/2024 2:02 PM EDT 08/30/2024 2:25 PM EDT Liss Puentes NP LAB BLOOD ORDERABLES Fin al Result Performing Organization Address City/[facility]/ZIP Co de Phone Number [facility] [address] [place] [address], [place] [phone] * (ABNORMAL) Comprehensive metabolic panel (08/30/2024 2:02 PM EDT) Sodium 137 133 - 145 mmol/L LAB CHEMISTRY METHOD 08/30/2024 4:28 PM [facility] Potassium 4.4 3.5 - 5.5 mmol/L LAB CHEMISTRY METHOD 08/30/2024 4:28 PM [facility] Chloride 107 96 - 110 mmol/L LAB CHEMISTRY METHOD 08/30/2024 4:28 PM [facility] CO2 28 21 - 32 mmol/L LAB CHEMISTRY METHOD 08/30/2024 4:28 PM [facility] Anion Gap 2(L) 3 - 11 LAB CHEMISTRY METHOD 08/30/2024 4:28 PM [facility] Glucose 97 70 - 100 mg/dL LAB CHEMISTRY METHOD 08/30/2024 4:28 PM [facility] BUN 14 5 - 25 mg/dL LAB CHEMISTRY METHOD 08/30/2024 4:28 PM [facility] Creatinine 0.91 0.50 - 1.10 mg/dL LAB CHEMISTRY METHOD 08/30/2024 4:28 PM [facility] eGFR 74 >=60 mL/min/1. 73m2 LAB CHEMISTRY METHOD 08/30/2024 4:28 PM [facility] Comment:Calculation based on the Chronic Kidney Disease Epidemiology Collaboration (CKD-EPI) equation refit without adjustment for race. BUN/Creatinine Ratio 15.4 LAB CHEMISTRY METHOD 08/30/2024 4:28 PM [facility] Calcium 9.5 8.5 - 10.5 mg/dL LAB CHEMISTRY METHOD 08/30/2024 4:28 PM [facility] AST (SGOT) 29 10 - 42 unit/L LAB CHEMISTRY METHOD 08/30/2024 4:28 PM [facility] ALT (SGPT) 20 10 - 60 unit/L LAB CHEMISTRY METHOD 08/30/2024 4:28 PM EDT [facility] Alkaline Phosphatase 103 42 - 121 unit/L LAB CHEMISTRY METHOD 08/30/2024 4:28 PM EDT [facility] Total Protein 8.0 6.0 - 8.0 g/dL LAB CHEMISTRY METHOD 08/30/2024 4:28 PM EDT [facility] Albumin 3.7 3.2 - 5.0 g/dL LAB CHEMISTRY METHOD 08/30/2024 4:28 PM EDT [facility] Total Bilirubin 0.5 0.0 - 1.4 mg/dL LAB CHEMISTRY METHOD 08/30/2024 4:28 PM EDT [facility] Blood Venous blood specimen / Unknown Venipuncture / Unknown 08/30/2024 2:02 PM EDT 08/30/2024 2:25 PM EDT us Demond Vuong MD LAB BLOOD ORDERABLES Final Resul t [facility] [address] [place] [address], [place] [phone] * External Diabetic Retina Eye Exam Report (07/02/2024) Anatomical Region Laterality Modality Ultrasound us Provider [facility] US PROCEDURES Final Result * Pap smear (05/03/2023) 05/03/2023 Narrative HISTORICAL TESTING LAB RESULTING AGENCY - 05/08/2023 2:56 PM EDT [id number] THINPREP PAP, IMAGED: NEGATIVE FOR SQUAMOUS INTRAEPITHELIAL LESION AND MALIGNANCY . QUINN CARMICHAEL(ASCP) (CASE ELECTRONICALLY SIGNED 05 08 2023) RESULT OF APTIMA HIGH RISK HPV ASSAY: HIGH RISK HPV: NEGATIVE (SEROTYPES 16,18,31,33,35,39,45,51,52,56,58,59,66,68) COMPLETED ON 2023-05-08 ADEQUACY: SATISFACTORY ENDOCERVICAL/TRANSFORMATION ZONE COMPONENT ABSENT. SOURCE: THINPREP PAP HPV ANY DX: REFLEX 16 AND 18, CERVICAL, IMAGED CLINICAL INFORMATION: [...] Routine screening. No current breast complaints. Family history of breast cancer Comparison: Multiple priors [...] typically benign parenchymal asymmetries IMPRESSION: : 1. No mammographic evidence of malignancy. BI-RADS Category 2 benign findings Recommendation: Routine annual screening mammography is recommended Procedure Note mOega Pearce MD - 09/25/2023 This is a [...] Plan / Payer (Ef fective 2023-Present) Name:CHRIS DOYLE Relation to Subscriber:Self Name:Chris Doyle Payer ID:[id number] Group ID:[id number] Type:Not on file Address: [place] [address] [address] [phone] Advance Directives * Full Code - Confirmed (Latest Code Status on File) Date Activated Date Inactivated Comments 08/30/2024 8:28 PM 08/31/2024 1:[address] atus was ascertained in the following way: Code status discussion: discussion with patient To update the patient's code status, place a code status order. Do not modify or discontinue any currently active code status orders. * Full Code - Default Date Activated Date Inactivated Comments 08/30/2024 4:18 PM 08/30/2024 8:28 PM This is orde r is used when code status has not been discussed with the patient, or code status is otherwise unknown/unconfirmed To update the patient's code status, place a code status order. Do not modify or discontinue any currently active code status orders. Care Teams Diamond Cutter Relationship Specialty Start Date End Date Darrel Tony MD [address] [place] [id number] PCP - General Internal Medicine 11/22/21
--- OUTSIDE RECORDS SUMMARY | 2024-09-19 11:31 | XMS_ITS ---
Author Name [facility] Organization Unknown Encounters Encounter Type Encounter Reason Primary Diagnosis Location Date Ambulatory [facility] 03/20/2023 Ambulatory [facility] [place] 03/18/2023 Ambulatory [facility] [place] 03/18/2023 Ambulatory [facility] [place] 03/18/2023 Ambulatory [facility] [place] 03/18/2023 Ambulatory [facility] [place] 03/18/2023 Ambulatory [facility] [place] 03/17/2023 Ambulatory [facility] [place] 03/17/2023 Care Team Organization Name Specialty Phone Email Start Date End Da te [facility] Darrel Tony Primary Care 04/13/2022 09/25/2023 [facility] Colette Jennings Primary Care 12/14/2021
--- OUTSIDE RECORDS SUMMARY | 2024-09-19 11:31 | XMS_ITS | Clinical Summary ---
Author Organization [facility] Facility Address [address] [address] Care Team Providers Care Offal Separator Name Role Phone Unavailable Primary Care Provider [...] of 1 - PCV) 018 Influenza Vaccine (#1) 2024
== END 2024-09-19 11:29 | disposition home or self-care (01) ==
LOC: HO.RHES 10:32
PROVIDERS: PCP Internal Medicine; Visit Provider Student in an Organized Health Care Education/Training Program
DX: M32.9 Systemic lupus erythematosus, unspecified (principal); Z79.899 Other long term (current) drug therapy; Z79.620 Long term (current) use of immunosuppressive biologic
CPT/HCPCS: 99214; G2211

== ENCOUNTER → 2024-09-19 10:25 | Outpatient (BNVA) | payer OTHER, SELFPAY | PROVIDERS: PCP Internal Medicine; Visit Provider Student in an Organized Health Care Education/Training Program | DX: M32.9 Systemic lupus erythematosus, unspecified (principal); Z79.899 Other long term (current) drug therapy; Z79.620 Long term (current) use of immunosuppressive biologic | CPT/HCPCS: 99212 ==

== ENCOUNTER 2024-09-26 12:23 | Outpatient (AMB) | payer OTHER, SELFPAY ==
[2024-09-26 12:24] VITALS: BP 118/80; BMI 36.2
--- NOTE | 2024-09-26 12:24 | MHC.OFFVIS ---
Vital Signs 09/26/24 12:24 Height 5 ft 9 in Weight 245 lb 6 oz BMI 36.2 BP 118/80 Blood Pressure Location Rt brachial Position Sitting Intake Visit Reasons: INP URGENT - Transient cerebral ischemic attack Intake Note: Abnormal involuntary movement Weather Strip Mechanic Required: No Accompanied by: Self / Same As Patient Allergies tramadol Allergy (Severe, Verified 09/26/24 12:25) severe rash trazodone Adverse Reaction (Severe, Verified 09/26/24 12:25) hives HPI Comments Details: 59 Right Handed female with Lupus comes for possible TIA. On ABout 6 weeks ago she woke up at 1 pm after a nap and could not speak , slurred speech, left sided weakness. she went to ER.she was admitted but she left AMA as she was not getting a room . Her speech improve din 30 minutes, facial droop, headaches resolved but she still has left sided weakness. she had MRI brain - was told normal she denies double vision dizziness , dysphagia , falls etc PFSH Medical History Lupus Osteoarthritis of right knee Arthritis Chronic renal insufficiency Glaucoma Pulmonary embolism GERD (gastroesophageal reflux disease) Diabetes Lupus anticoagulant disorder HTN (hypertension) Depression Osteoarthritis Lumbar spondylosis Lower back pain Smoker Bilateral knee swelling Hypertension Surgical History Status post right knee replacement History of esophagogastroduodenoscopy (EGD) H/O colonoscopy Hx of excision of mass Hx laparoscopic cholecystectomy Hx of tubal ligation Hx of section Family History Brother Diabetes Mother Hypertension Breast cancer, Onset Age: 49 Father Hypertension Maternal Grandmother Breast cancer Maternal Aunt Breast cancer, Onset Age: 53 Social History Household Members: Family and Children Household Members Other:: children Housing: House Are you a primary aged or disabled care worker to a significant other at home: No Do you presently have visiting nurse or other home services: Yes (public records officer) Alcohol intake: never Comment: all ordered meds give Patient Tobacco Use Status: Current everyday Tobacco user Tobacco use type: Cigarette Cigarette Packs Per Day: 0.5 Years Smoked: 32 service: No Current occupational status: unemployed and disabled Gender identity: Female Physical Exam Vital Signs: Last Vital Signs BP 118/80 09/26/24 12:24 BMI result Body Mass Index 36.2 Const General: cooperative, healthy appearing, comfortable and no acute distress Nutritional Appearance: obese Orientation/consciousness: patient oriented x3 Eyes Pupils: Equal, round and reactive pupils present Neuro Other: Mild left LE weakness - 4+/5 all others 5/5 Gait - antalgic General: patient oriented x3, tone normal and moves all extremities Cranial nerves: Yes Facial sensation intact/muscles of mastication intact, Yes Equal, round and reactive pupils present, Yes Bilaterally intact EOM present, Yes Nystagmus not present, Yes Normal facial strength present and Yes Midline tongue present Cognition (Neuro): normal cognition Gait exam (Neuro): Antalgic gait present Motor exam (neuro): 5/5 motor strength present throughout and Normal motor muscle tone present throughout Deep tendon reflexes (DTR's): Right triceps reflex intensity grade: 1+, Left triceps reflex intensity grade: 1+, Rt Biceps (C5, C6): 1+, Left biceps reflex intensity grade: 1+, Right brachioradialis reflex intensity grade: 0, Left brachioradialis reflex intensity grade: 0, Right patellar reflex intensity grade: 0 and Left patellar reflex intensity grade: 0 Coordination: [id number] test normal Assessment & Plan Assessment & Plan (1) TIA (transient ischemic attack): Code(s): G45.9 - Transient cerebral ischemic attack, unspecified Category: Medical Plan MRI brain MRA brain Carotid doppler ECHO 2D Continue Aspirin 81 mg qd Risk factor reduction Orders: Orders MR angio head wo con Today G45.9 - Transient cerebral ischemic attack, unspecified CA echo transthoracic complete Today G45.9 - Transient cerebral ischemic attack, unspecified MR head/brain wo con Today G45.9 - Transient cerebral ischemic attack, unspecified US carotid duplex BI Today G45.9 - Transient cerebral ischemic attack, unspecified Coding Level of Care Code New Pt Level 4 (46135) Diagnoses TIA (transient ischemic attack) G45.9
== END 2024-09-26 13:00 | disposition home or self-care (01) ==
LOC: HO.HSMS 12:23
PROVIDERS: PCP Internal Medicine; Visit Provider Psychiatry & Neurology Neurology
DX: G45.9 Transient cerebral ischemic attack, unspecified (principal)
CPT/HCPCS: 99204

== ENCOUNTER → 2024-09-26 12:23 | Outpatient (BNVA) | payer OTHER, SELFPAY | PROVIDERS: PCP Internal Medicine; Visit Provider Psychiatry & Neurology Neurology | DX: M32.9 Systemic lupus erythematosus, unspecified (principal); G45.9 Transient cerebral ischemic attack, unspecified; R53.1 Weakness | CPT/HCPCS: 99202 ==

== ENCOUNTER 2024-11-13 10:59 | Outpatient (REF) | payer OTHER, SELFPAY ==
[2024-11-13 11:16] LABS: MANUAL DIFF FLAG NO
[2024-11-13 11:43] LABS: Appearance Urine Cloudy; Glucose Urine UA Negative (Negative); PH 5.5 (5.0-9.0); Specific Gravity - Urine 1.025 (1.005-1.025); UMIC TRIGGER UA YES
[2024-11-13 11:45] LABS: Hematocrit 37.5 % (37.0-47.0); Hemoglobin 12.3 g/dl (12.0-16.0); Imm Gran Abs Auto 0.01 X10*3/uL (0.00-0.03); Imm Gran Pct Auto 0.2 % (0.0-0.4); Lymphocytes Absolute Auto 2.6 X10*3/uL (1.2-4.9); Mean Corpuscular HGB Conc 32.8 g/dl (31.0-35.0); Mean Corpuscular Hemoglobin 29.4 pg (27.0-33.0); Mean Corpuscular Volume 89.7 fL (80.0-98.0); NRBC Abs Auto 0.000 X10*3/uL (0.0-0.012); NRBC Pct Auto 0.0 /100WBC (0.0-0.2); Platelet Count 255 X10*3/uL (160-400); Red Blood Count 4.18 X10*6/uL (4.20-5.50); White Blood Count 5.7 X10*3/uL (4.8-10.8)
[2024-11-13 12:16] LABS: Protein/Creatinine Ratio, Ur 0.07 (<0.2); Total Protein Urine Random 14 mg/dL (<12)
[2024-11-13 12:24] LABS: Alanine Aminotransferase 10 U/L (0-31); Albumin Level 3.9 g/dL (3.5-5.0); Alkaline Phosphatase 98 U/L (39-117); Anion Gap 9 (12-20); Aspartate Amino Transferase 18 U/L (5-31); Blood Urea Nitrogen 12 mg/dL (9-16); Calcium 9.4 mg/dL (8.4-10.2); Carbon Dioxide 28 mmol/L (22-29); Chloride 110 mmol/L (96-108); Estimated Glomerular Filt Rate > 60; Potassium 3.6 mmol/L (3.3-5.1); Sodium 143 mmol/L (135-145); Total Protein 7.4 g/dL (6.5-8.0)
[2024-11-18 00:19] LABS: Vitamin D 25-OH, D2 <4 ng/mL; Vitamin D 25-OH, D3 35 ng/mL; Vitamin D 25-OH, Total 35 ng/mL (30-100)
== END 2024-11-13 11:00 | disposition home or self-care (01) ==
LOC: HO.LAB 10:59
PROVIDERS: PCP Internal Medicine; Visit Provider Student in an Organized Health Care Education/Training Program
DX: M32.9 Systemic lupus erythematosus, unspecified (principal); E55.9 Vitamin D deficiency, unspecified
CPT/HCPCS: 36415; 80053; 81001; 82306; 82570; 84156; 85025; 85652; 86140; 86160; 86225

== ENCOUNTER 2024-11-21 10:54 | Outpatient (REF) | payer OTHER, SELFPAY ==
--- NOTE | ~2024-11-21 | US_ITS ---
EXAMINATION: BILATERAL CAROTID ULTRASOUND WITH DOPPLER HISTORY: G45.9 - Transient cerebral ischemic attack, unspecified COMPARISON: There are no prior studies available for comparison. TECHNIQUE: Real time and Color and Spectral doppler ultrasonography of the carotid and vertebral arteries was performed in multiple planes. FINDINGS: No significant plaque is identified. Incidental note is made of bilateral thyroid nodules. VERTEBRAL FLOW DIRECTION: Antegrade bilaterally. PEAK SYSTOLIC VELOCITIES (in cm/sec): RIGHT: CCA: Prox: 71 Dist: 52 ICA: Prox: 62 Mid: 55 Dist: 46 ICA/CCA Ratio: 0.97 ECA: 69 Peak ICA end diastolic velocity (EDV): 27 LEFT: CCA: Prox: 77 Dist: 66 ICA: Prox: 62 Mid: 73 Dist: 100 ICA/CCA Ratio: 1.30 ECA: 74 Peak ICA end diastolic velocity (EDV): 52 US/US carotid duplex BI IMPRESSION: 1. No significant internal carotid artery stenosis bilaterally. 2. Incidental note is made of multiple bilateral thyroid nodules. Thyroid ultrasound is suggested. Electronically signed by: Ezequiel Pugh MD 11/21/2024 11:54 AM EDT
--- OUTSIDE RECORDS SUMMARY | 2024-11-21 13:47 | XMS_ITS | Clinical Summary ---
Author Organization [place] [address] [address] [facility] Building Address [address] [place] [address] Phone Care Team Providers Care Director Of Corporate Sponsorships Name Role Phone Jody Roland MD Primary Care Provider [phone] Allergies Active Allergy Reactions Criticality Noted Date [...] for Other (Panic attacks). - Oral Active hydroxychloroqui ne (PLAQUENIL) 200 mg tablet Take 1 tablet (200 mg total) by mouth 2 (two) times a day. Take 1 Tab by mouth 2 times daily. - Oral Active mirtazapine (REMERON) 30 mg tablet Take 1 tablet (30 mg total) by mouth at bedtime. 12/02/19 24 Active tiZANidine (ZANAFLEX) 4 mg capsule Take 1 capsule (4 mg total) by mouth 3 (three) times a day. 04/19/19 24 Active blood-glucose transmitter (Playmatics G6 Transmitter) deviceIndication s:Type 2 diabetes mellitus with other diabetic kidney complication ([facility] V24, [facility] V28) Change transmitter every 3 months 3 each 3 06/07/19 25 Active nystatin (MYCOSTATIN) 100,000 unit/gram powder APPLY TO AREA OF CONCERN 2-3 TIMES PER DAY WHENEVER RASH IS PRESENT. 15 g 3 06/13/19 25 Active cholecalciferol (VITAMIN D-3) 50 mcg (2,000 unit) tabletIndication s:Vitamin D deficiency, unspecified TAKE 1 TABLET BY MOUTH EVERY DAY 90 tablet 06/26/19 25 Active buPROPion XL (WELLBUTRIN XL) 150 mg 24 hr tablet Take 1 tablet (150 mg total) by mouth 1 (one) time each day in the morning. 90 tablet 3 06/27/19 25 Active lidocaine (LIDODERM) 5 % patchIndications :Essential hypertension, benign,Type 2 diabetes mellitus with microalbuminuria , with long-term current use of insulin ([facility] V24, [facility] V28) Apply topically 1 (one) time each day. Place 1 Patch onto the skin every 24 hours. Apply for no more than 12 hours in any 24 hour period. - Transdermal 90 patch 06/27/19 Active Additional Information Patient not taking.Reported on 08/30/2024 atorvastatin (LIPITOR) 10 mg tablet Take 1 tablet (10 mg total) by mouth 1 (one) time each day. 90 each 06/27/19 025 Active ammonium lactate (AmLactin) 12 % lotion Apply topically if needed for dry skin. 400 g 06/27/19 026 Active lisinopriL (PRINIVIL,ZESTRI L) 20 mg tablet Take 1 tablet (20 mg total) by mouth 1 (one) time each day. 90 tablet 06/28/19 Active hydroCHLOROthiaz clara (HYDRODIURIL) 50 mg tablet Take 1 tablet (50 mg total) by mouth 1 (one) time each day. 90 tablet 06/28/19 Active amLODIPine (NORVASC) 2.5 mg tablet Take 1 Tablet by mouth daily. With the 5 mg daily for a total of 7.5 mg - Oral 90 tablet 06/28/19 Active amLODIPine (NORVASC) 5 mg tablet Take 1 Tablet by mouth daily. With the 2.5 mg daily for a total of 7.5 mg - Oral 90 tablet 06/28/19 Active QUEtiapine (SEROquel) 100 mg tablet Take 1.5 tablets (150 mg total) by mouth at bedtime. Active insulin glargine (LANTUS SoloStar) 100 unit/mL (3 mL) injection pen Inject 35 Units under the skin at bedtime. 07/04/19 25 Active metFORMIN (GLUCOPHAGE) 1,000 mg tablet TAKE 1 TABLET BY MOUTH TWICE A DAY WITH FOOD 168 tablet 2 09/17/19 25 Active gabapentin (NEURONTIN) 600 mg tablet Take 1 tablet (600 mg total) by mouth 3 (three) times a day. Active naproxen (NAPROSYN) 500 mg tablet Take 1 tablet (500 mg total) by mouth 2 (two) times a day if needed for mild pain (pain). 90 tablet 1 09/20/19 25 026 Active oxyCODONE (ROXICODONE) 10 mg immediate release tabletIndication s:Other chronic pain Take 0.5 tablets (5 mg total) by mouth every 8 (eight) hours if needed for severe pain for up to 28 days. Max Daily Amount: 15 mg 42 tablet 11/02/19 25 025 Active oxyCODONE (ROXICODONE) 10 mg immediate release tabletIndication s:Other chronic pain Take 0.5 tablets (5 mg total) by mouth every 8 (eight) hours if needed for severe pain for up to 28 days. Max Daily Amount: 15 mg 42 tablet 10/04/19 25 025 Discontin ued(Reord er) Active Problems Problem Noted Date Diagnosed Date Transient neurological symptoms 08/30/2024 Morbid obesity ([facility] V24, [facility] V28) 2024 CKD (chronic kidney disease) stage 2, GFR 60-89 ml/min 12/12/2023 Essential hypertension, benign 11/08/2023 Class 2 obesity due to exces s calories with body mass index (BMI) of 36.0 to 36.9 in adult 11/08/2023 Discoid lupus 11/08/2023 Esophageal reflux 11/08/2023 Systemic lupus erythematosus ([facility] V24, [facility] V28) 11/08/2023 Depression, major 11/08/2023 Fibromyalgia 11/08/2023 Carpal tunnel syndrome, bilateral 11/08/2023 Type 2 diabetes mellitus, wi th long-term current use of insulin ([facility] V24, [facility] V28) 11/08/2023 Adrenal adenoma, left 11/08/2023 Type 2 diabetes mellitus wit h microalbuminuria, with long-term current use of insulin ([facility] V24, [facility] V28) 11/08/2023 Microalbuminuria 11/08/2023 Lupus anticoagulant positive 11/08/2023 Vitamin D deficiency 11/08/2023 Diabetic polyneuropathy asso ciated with type 2 diabetes mellitus ([facility] V24, [facility] V28) 11/08/2023 Other chronic pain 11/08/2023 Pancreatitis 11/08/2023 Primary osteoarthritis of right knee 11/08/2023 Encounters Date Type Department Care Team Description 11/06/2024 Results Follow-Up [facility] [address] [facility] [place] [address] Lu Chamberlain NP 10/23/2024 1:00 PM EDT Ancillary Procedure [facility] Cardiology [facility] - [facility] [address] [address] Chest pain, unspecified type; Left arm pain 10/22/2024 Telephone Internal Medicine - [facility] [address] [place] [address] Darrel Tony MD 10/21/2024 9:15 AM EDT Ancillary Procedure [facility] - [facility] [address] [address] Chest pain, unspecified type; Left arm pain 10/03/2024 Telephone Internal Medicine - [facility] [address] [place] [address] Darrel Tony MD 10/03/2024 Telephone Internal Medicine - [facility] [address] [place] [address] Darrel Tony MD 09/19/2024 2:07 PM EDT - 09/19/2024 11:59 PM EDT Hospital Encounter Xray - [facility] [address] [place] [address] Discharge Disposition: Home or Self Care 09/19/2024 1:00 PM EDT Office Visit Internal Medicine - [facility] [address] [place] [address] Lu Chamberlain, OTILIO TIA (transient ischemic attack) (Primary Dx); Chest pain, unspecified type; Type 2 diabetes mellitus without complication, with long-term current use of insulin (CMS/HCC V24, CMS/HCC V28); Left arm pain; Acute nonintractable headache, unspecified headache type 08/30/2024 1:50 PM EDT - 08/30/2024 11:09 PM EDT Hospital Encounter [facility] Emergency [address] [place] [id number] Demond Vuong MD Flores, Carlos M, MD TIA (transient ischemic attack) (Primary Dx) Discharge Disposition: Left Against Medical Advice from Last 3 Months Immunizations Immunization Administration Dates Next Due Influenza Quadravalent, MDCK [...] CHOLECYSTECTOMY 1998 PROCEDURE: LAPAROSCOPY, CHOLECYSTECTOMY SECTION PROCEDURE: NC DELIVERY ONLY; COMMENT: X4 TUBAL LIGATION PROCEDURE: HISTORICAL TUBAL LIGATION CHOLECYSTECTOMY PROCEDURE: NC LAPAROSCOPY SURG CHOLECYSTECTOMY Medical History Medical History Date Comments Other pulmonary embolism and infarction 1998 DX:Other pulmonary embolism and infarction 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; COMMENT: scalp, arms; + biopsy 11/2005 Systemic lupus erythematosus ([facility] V24, [facility] V28) 09/01/2006 DX:Systemic lupus erythemato espinoza (HCC); COMMENT: DISCOID LESIONS, SUB-ACUTE SKIN LESIONS ARTHRALGIAS, MILD PROTEINURIA + 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 For example, school child care attendant or elderly care for an older adult? [...] Date Recorded What is your living situation? Unrecognized valu e 09/13/2024 Comments No Sex and Gender Information Value Date Recorded Sex Assigned at Female 01/05/2024 2:55 PM EST Legal Sex Female 11:24 PM EST Gender Identity Female 01/05/2024 2:55 PM EST Sexual Orientation Straight 01/05/2024 2: 55 PM EST Obstetrics History Last Filed Vital Signs Vital Sign Reading Time Taken Comments Blood Pressure 144/93 10/21/2024 9:04 AM EDT Pulse 96 09/19/2024 12:59 PM EDT auto cuff Temperature 37.1 C (98.8 F) 09/19/2024 12:59 PM EDT Respiratory Rate 18 08/30/2024 11:08 PM EDT Oxygen Saturation 99% 08/30/2024 11:08 PM EDT Inhaled Oxygen Concentration - - Weight 113 kg (249 lb) 10/21/2024 9:01 AM EDT Height 175.3 cm (5' 9 ) 08/30/2024 1:47 PM EDT Body Mass Index 36.77 08/30/2024 1:47 PM EDT Plan of Treatment Upcoming Encounters Date Type Department Care Team (Late st Contact Info) Description 12/18/2024 11:00 AM EST Office Visit Endocrinology - [address] [address] Trish Hyatt PA [address] [place] [address] Health Maintenance Due Date Last Done Comments Colorectal Cancer Screening: Colonoscopy 1967 Diabetes: Annual Foot Exam 04/14/1977 Hepatitis B Vaccines (1 of 3 - 19+ 3-dose series) 04/14/1986 Zoster Vaccines (1 of 2) 04/14/1986 RSV Immunization Adult Patients (1 - Risk 50-74 years 1-dose series) 04/14/2017 Pneumococcal Vaccine: 50+ Years (2 of 2 - PCV) 03/26/2019 03/26/2018 COVID-19 Vaccine (3 - Moderna risk series) 10/08/2020 09/10/2020, 08/20/2020 HIV Screening 01/14/2022 Hepatitis C Screening 01/14/2022 Medicare Annual Wellness Visit 01/14/2022 Diabetes: Annual Urine Albumin-Creatinine Ratio (uACR) 08/31/2023 08/30/2022 Influenza Vaccine (#1) 2024 , 11/26/2019, 12/06/2016, Additional history exists Diabetes: Blood Sugar Control Test (HGBA1C) 03/22/2025 09/19/2024, 08/30/2024, 10/26/2023 Breast Cancer Screening 03/30/2025 03/30/2023 Diabetes: Annual Retina Eye Exam 07/02/2025 07/02/2024 Social Influencers of Health Screening 09/13/2025 09/13/2024 Diabetes: Annual GFR (Glomerular Filtration Rate) 09/19/2025 09/19/2024, 08/30/2024, 10/26/2023, Additional history exists Hypertension/CHF/CAD Annual BMP Blood Test 09/19/2025 09/19/2024, 08/30/2024, 10/26/2023, Additional history exists Cervical Cancer Screening: Pap Smear 05/02/2026 05/03/2023 DTaP,Tdap,and Td Vaccines (2 - Td or Tdap) 03/26/2028 03/26/2018 Cholesterol Screening (Lipid Panel) 09/19/2029 09/19/2024, 08/30/2024, 10/26/2023 Depression Screening Completed 09/13/2024 HIB [...] Date/Time Associated Diagnosis Comments EXTERNAL CLINICAL LAB 11/18/2024 EXTERNAL CLINICAL LAB 11/14/2024 CARDIAC HOLTER MONITOR (REPORT GENERATED IN HOUSE) Routine 10/23/2024 1:19 PM EDT Chest pain, unspecified type Left arm pain STRESS TEST ONLY EXERCISE Routine 10/21/2024 9:26 AM EDT Chest pain, unspecified type Left arm pain ECG Routine 09/20/2024 11:44 AM EDT XR CHEST 2 VIEWS Routine 09/19/2024 2:12 PM EDT Chest pain, unspecified type CBC WITH AUTO DIFFERENTIAL Routine 09/19/2024 2:00 PM EDT TIA (transient ischemic attack) Chest pain, unspecified type VITAMIN D 25 HYDROXY Routine 09/19/2024 2:00 PM EDT Vitamin D deficiency, unspecified COMPREHENSIVE METABOLIC PANEL Routine 09/19/2024 2:00 PM EDT TIA (transient ischemic attack) Chest pain, unspecified type CBC AND DIFFERENTIAL Routine 09/19/2024 2:00 PM EDT TIA (transient ischemic attack) Chest pain, unspecified type LIPID PANEL WITH REFLEX TO DIRECT LDL Routine 09/19/2024 2:00 PM EDT Chest pain, unspecified type THYROID STIMULATING HORMONE WITH REFLEX TO FREE T4 AND FREE T3 Routine 09/19/2024 2:00 PM EDT TIA (transient ischemic attack) Chest pain, unspecified type ACTIVATED PARTIAL THROMBOPLASTIN TIME Routine 09/19/2024 2:00 PM EDT TIA (transient ischemic attack) PROTHROMBIN TIME WITH INR Routine 09/19/2024 2:00 PM EDT TIA (transient ischemic attack) HEMOGLOBIN A1C Routine 09/19/2024 2:00 PM EDT Type 2 diabetes mellitus without complication, with long-term current use of insulin ([facility] V24, [facility] V28) POCT GLUCOSE BLOOD Routine 08/30/2024 8: 23 [...] Health Maintenance Results * External clinical lab (11/18/2024) Only the most recent of2 resultswithin the time period is included. us Provider [facility] LAB BLOOD ORDERABLES Fin al Result * CARDIAC HOLTER MONITOR (REPORT GENERATED IN HOUSE) (10/23/2024 1:19 PM EDT) Anatomical Region Laterality Modality Cardiac Diagnost ic Narrative 11/04/2024 7:29 PM EDT [facility] DI[facility]NOSTIC TESTING DEPARTMENT [address] [place] [address], [id number] [address] TEL: FAX: Type of Test: 48 Hour Holter Monitor Date of Test: 10/23/2024 Ordering Provider: Lu Bhardwja NP Reason for Test: Chest pain, unspecified type; Left arm pain; Palpitations, Hypertension Findings: 1: Predominant rhythm was Normal Sinus Rhythm. 2: Rare PACs and a few atrial runs lasting up to 5 beats with rates up to 158 bpm. 3: Occasional PVCs and rare ventricular bigeminy. 4: No significant pause, longest R-R was 1.1 second at 6:03 AM. 5: Diary returned with no symptoms noted. Lu Bhardwaj NP CV CARDIAC SERVICES PROCEDUR ES Final Result * Exercise stress test (10/21/2024 9:26 AM EDT) Target HR 139 bpm CV STRESS ONLY Baseline HR 89 bpm CV STRES S ONLY Peak HR 142 bpm CV STRESS ONLY Estimated workload 5.9 METS CV STRESS ONLY Percent HR 87 % CV STRESS ONLY Exercise/injec tion duration (min) 3 min CV STRESS ONLY Exercise/injec tion duration (sec) 47 sec CV STRESS ONLY Max HR Percent 87 % CV ST RESS ONLY Baseline SBP 144 mmHg CV STRE SS ONLY Baseline DBP 93 mmHg CV STRE SS ONLY Peak SBP 152 mmHg CV STRESS ONLY Peak DBP 90 mmHg CV STRESS ONLY Rate Pressure Product 21,584.0 mmHg*bpm CV STRESS ONLY Anatomical Region Laterality Modality Cardiac Diagnost ic Narrative 10/21/2024 5:49 PM EDT No ischemic EKG change at a target hear rate. Stress ECG was normal. No chest pain. Exercise capacity was below average. Normal blood pressure response. Stress Findings A Theo protocol stress test was performed. Overall, the patient's exercise capacity was below average. The patient reached stage 2. Total stress time was 3 min and 47 sec. The test was stopped because the patient experienced fatigue. The patient's hemodynamic response was adequate for diagnosis. Blood pressure demonstrated a normal response. Heart rate demonstrated a normal response. Onset of symptoms occurred at Stage 1 of the protocol. The patient reported fatigue during the stress test. ECG 59-year-old female with a past medical history significant for hypertension, diabetes, hyperlipidemia, history of TIA, palpitations, in to rule out ischemia. Patient on aspirin. Baseline EKG: Sinus rhythm There were no arrhythmias during stress. There were no arrhythmias during recovery. The result of the stress ECG was negative for ischemia. Procedure Note Ron Cortez NP / Tony Moctezuma MD - 10/21/2024 No ischemic EKG change at a target hear rate. Stress ECG was normal. No chest pain. Exercise capacity was below average. Normal blood pressure response. Lu Bhardwaj NP CV STRESS PROCEDURES Final R esult * ECG (09/20/2024 11:44 AM EDT) Historical Provider ECG ORDERABLES Final Res ult * XR Chest 2 Views (09/19/2024 2:12 PM EDT) Anatomical Region Laterality Modality Body Radiographic Zoraida ging 09/19/2024 7:47 PM EDT Impressions 09/19/2024 7:50 PM EDT No acute cardiopulmonary process. -------- FINAL REPORT -------- Dictated By: Omega Pearce Dictated Date: 09/19/2024 19:47 ET Assigned Physician: Omega Pearce Reviewed and Electronically Signed By: Omega Pearce Signed Date: 09/19/2024 19:50 ET Workstation ID: [id number] Transcribed By: Self Edit Transcribed Date: 09/19/2024 19:47 ET Narrative 09/19/2024 7:50 PM EDT HISTORY: pain chest pain TECHNIQUE: PA and lateral radiographs of the chest COMPARISON: Chest radiograph from 02/16/2017 FINDINGS: There is a normal cardiomediastinal silhouette. Pleural thickening at the right costophrenic angle. No focal consolidation or effusion. Moderate degenerative changes of the thoracic spine. Procedure Note Omega Pearce MD - 09/19/2024 HISTORY: pain chest pain TECHNIQUE: PA and lateral radiographs of the chest COMPARISON: Chest radiograph from 02/16/2017 FINDINGS: There is a normal cardiomediastinal silhouette. Pleural thickening at theright costophrenic angle. No focal consolidation or effusion. Moderatedegenerative changes of the thoracic spine. IMPRESSION: No acute cardiopulmonary process. -------- FINAL REPORT -------- Dictated By: Omega Paerce Dictated Date: 09/19/2024 19:47 ET Assigned Physician: Omega Pearce Reviewed and Electronically Signed By: Omega Pearce Signed Date: 09/19/2024 19:50 ET Workstation ID: [id number] Transcribed By: Self Edit Transcribed Date: 09/19/2024 19:47 ET us Lu Bhardwaj NP IMG XR PROCEDURES Final Resu lt * Thyroid stimulating hormone with reflex to free t4 and free t3 (09/19/2024 2:00 PM EDT) TSH 1.48 0.40 - 4.00 mcIU/mL LAB CHEMISTRY METHOD 09/19/2024 4:46 PM EDT [facility] Blood Venous blood specimen / Unknown Venipuncture / Unknown 09/19/2024 2:00 PM EDT 09/19/2024 2:00 PM EDT us Lu Bhardwaj NP LAB BLOOD ORDERABLES Final R esult [facility] [address] [place] [address], [place] [phone] * Lipid panel with reflex to direct LDL (09/19/2024 2:00 PM EDT) Only the most recent of2 resultswithin the time period is included. Cholesterol 137 0 - 200 mg/dL LAB CHEMISTRY METHOD 09/19/2024 3:54 PM EDT [facility] Triglycerides 106 0 - 150 mg/dL LAB CHEMISTRY METHOD 09/19/2024 3:54 PM EDT [facility] HDL 52 >=40 mg/dL LAB CHEMISTRY METHOD 09/19/2024 3:54 PM EDT [facility] LDL Calculated 64 0 - 100 mg/dL LAB CHEMISTRY METHOD 09/19/2024 3:54 PM EDT [facility] Comment:Estimated LDL Calcul ated using equation: Total cholesterol - HDL cholesterol - (Triglycerides/5) VLDL Cholesterol Bishop 21.2 mg/dL LAB CHEMISTRY METHOD 09/19/2024 3:54 PM EDT [facility] Non HDL Chol. (LDL+VLDL) 85 <145 mg/dL LAB CHEMISTRY METHOD 09/19/2024 3:54 PM EDT [facility] Chol/HDL Ratio 2.6 0.0 - 4.4 LAB CHEMISTRY METHOD 09/19/2024 3:54 PM EDT [facility] Blood Venous blood specimen / Unknown Venipuncture / Unknown 09/19/2024 2:00 PM EDT 09/19/2024 2:00 PM EDT us Lu Bhardwaj BUSINESS OBJECTS REPORT DEVELOPER LAB BLOOD ORDERABLES Final R esult [facility] [address] [place] [address], * (ABNORMAL) CBC auto differential (09/19/2024 2:00 PM EDT) Only the most recent of2 resultswithin the time period is included. WBC 6.0 4.8 - 10.8 K/mcL LAB HEMETOLOGY METHOD 09/19/2024 3:59 PM EDT [facility] RBC 4.30 3.80 - 4.80 M/mcL LAB HEMETOLOGY METHOD 09/19/2024 3:59 PM EDT [facility] Hemoglobin 12.3 11.5 - 16.0 g/dL LAB HEMETOLOGY METHOD 09/19/2024 3:59 PM EDT [facility] Hematocrit 40.1 35.0 - 47.0 % LAB HEMETOLOGY METHOD 09/19/2024 3:59 PM EDT [facility] MCV 93.3 79.0 - 98.0 FL LAB HEMETOLOGY METHOD 09/19/2024 3:59 PM EDT [facility] MCH 28.6 27.0 - 32.0 pcg LAB HEMETOLOGY METHOD [facility] MCHC 30.7(L) 32.0 - 37.0 g/dL LAB HEMETOLOGY METHOD 09/19/2024 3:59 PM EDT [facility] RDW 13.8 11.0 - 15.0 % LAB HEMETOLOGY METHOD 09/19/2024 3:59 PM EDT [facility] Platelets 262 130 - 400 K/mcL LAB HEMETOLOGY METHOD 09/19/2024 3:59 PM EDT [facility] MPV 10.6 7.0 - 11.0 FL LAB HEMETOLOGY METHOD 09/19/2024 3:59 PM EDT [facility] NRBC 0.0 <1.0 % LAB HEMETOLOGY METHOD 09/19/2024 3:59 PM EDT [facility] NRBC Absolute 0.00 <0.10 K/mcL LAB HEMETOLOGY METHOD 09/19/2024 3:59 PM EDT [facility] Neutrophils Relative 41.8 % LAB HEMETOLOGY METHOD 09/19/2024 3:59 PM EDT [facility] Lymphocytes Relative 48.2 % LAB HEMETOLOGY METHOD 09/19/2024 3:59 PM EDT [facility] Monocytes Relative 6.5 % LAB HEMETOLOGY METHOD [facility]/19[facility]2024 [facility] Eosinophils Relative 2.5 % LAB HEMETOLOGY METHOD 09/19/2024 3:59 PM EDT [facility] Basophils Relative 0.7 % LAB HEMETOLOGY METHOD 09/19/2024 3:59 PM [facility] Immature Granulocytes Relative 0.3 % LAB HEMETOLOGY METHOD 09/19/2024 3:59 PM [facility] Neutrophils Absolute 2.52 1.50 - 7.00 K/mcL LAB HEMETOLOGY METHOD 09/19/2024 3:59 PM [facility] Lymphocytes Absolute 2.90 1.00 - 5.00 K/mcL LAB HEMETOLOGY METHOD 09/19/2024 3:[facility] Monocytes Absolute 0.39 0.20 - 1.00 K/mcL LAB HEMETOLOGY METHOD 09/19/2024 3:59 PM [facility] Eosinophils Absolute 0.15 0.00 - 0.50 K/mcL LAB HEMETOLOGY METHOD 09/19/2024 3:59 PM EDT [facility] Basophils Absolute 0.04 0.00 - 0.20 K/mcL LAB HEMETOLOGY METHOD 09/19/2024 3:59 PM T [facility] Immature Granulocytes Absolute 0.02 0.00 - 0.03 K/mcL LAB HEMETOLOGY METHOD 09/19/2024 3:59 PM [facility] Blood Venous blood specimen / Unknown Venipuncture / Unknown 09/19/2024 2:00 PM EDT 09/19/2024 2:00 PM EDT Lu Bhardwaj BUSINESS OBJECTS REPORT DEVELOPER LAB BLOOD ORDERABLES Final R esult Performing Organization Address [facility]/ZIP Co de Phone Number [facility] [address] [place] [address], [place] [phone] * Vitamin D 25 hydroxy (09/19/2024 2:00 PM EDT) Pathologist [facility] Vit D, 25-Hydroxy 45.3 30.0 - 80.0 ng/mL LAB CHEMISTRY METHOD 09/19/2024 4:45 PM EDT [facility] Blood Venous blood specimen / Unknown Venipuncture / Unknown 09/19/2024 2:00 PM EDT 09/19/2024 2:00 PM EDT Darrel Tony MD LAB BLOOD ORDERABLES Jadyn l Result Performing Organization Address [facility] Co de Phone Number [facility] [address] [place] [address], [place] [phone] * (ABNORMAL) Activated partial thromboplastin time (09/19/2024 2:00 PM EDT) Only the most recent of2 resultswithin the time period is included. [facility] aPTT 86.2(H) 24.1 - 39.3 sec LAB COAGULATION METHOD 09/19/2024 4:11 PM EDT [facility] Blood Venous blood specimen / Unknown Venipuncture / Unknown 09/19/2024 2:00 PM EDT 09/19/2024 2:00 PM EDT Lu Bhardwaj BUSINESS OBJECTS REPORT DEVELOPER LAB BLOOD ORDERABLES Final R esult Performing Organization Address [facility] Co de Phone Number [facility] [address] [place] [address], [place] [phone] * Prothrombin time with INR (09/19/2024 2:00 PM EDT) Only the most recent of2 resultswithin the time period is included. [facility] Protime 11.1 10.6 - 13.9 sec LAB COAGULATION METHOD 09/19/2024 3:39 PM EDT [facility] INR 0.9 LAB COAGULATION METHOD 09/19/2024 3:39 PM EDT [facility] Blood Venous blood specimen / Unknown Venipuncture / Unknown 09/19/2024 2:00 PM EDT 09/19/2024 2:00 PM EDT Lu Bhardwaj BUSINESS OBJECTS REPORT DEVELOPER LAB BLOOD ORDERABLES Final R esult Performing Organization Address City/[facility]/ZIP Co de Phone Number [facility] [address] [place] [address], [place] [phone] * Hemoglobin A1c (09/19/2024 2:00 PM EDT) Only the most recent of2 resultswithin the time period is included. [facility] Hemoglobin A1C 5.1 <6.5 % LAB CHEMISTRY METHOD 09/19/2024 9:44 PM EDT [facility] Mean Bld Glu Estim. 100 mg/dL LAB CHEMISTRY METHOD 09/19/2024 9:44 PM EDT [facility] Blood Venous blood specimen / Unknown Venipuncture / Unknown 09/19/2024 2:00 PM EDT 09/19/2024 2:00 PM EDT us Lu Bhardwaj BUSINESS OBJECTS REPORT DEVELOPER LAB BLOOD ORDERABLES Final R esult [facility] [address] [place] [address], [place] [phone] * (ABNORMAL) Comprehensive metabolic panel (09/19/2024 2:00 PM EDT) Only the most recent of2 resultswithin the time period is included. [facility] Sodium 141 133 - 145 mmol/L LAB CHEMISTRY METHOD 09/19/2024 3:54 PM [facility] Potassium 4.2 3.5 - 5.5 mmol/L LAB CHEMISTRY METHOD 09/19/2024 3:54 PM [facility] Chloride 110 96 - 110 mmol/L LAB CHEMISTRY METHOD 09/19/2024 3:54 PM [facility] CO2 28 21 - 32 mmol/L LAB CHEMISTRY METHOD 09/19/2024 3:54 PM [facility] Anion Gap 3 3 - 11 LAB CHEMISTRY METHOD 09/19/2024 3:54 PM [facility] Glucose 80 70 - 100 mg/dL LAB CHEMISTRY METHOD 09/19/2024 3:54 PM [facility] BUN 17 5 - 25 mg/dL LAB CHEMISTRY METHOD 09/19/2024 3:54 PM [facility] Creatinine 1.19(H) 0.50 - 1.10 mg/dL LAB CHEMISTRY METHOD 09/19/2024 3:54 PM [facility] eGFR 53(L) >=60 mL/min/1. 73m2 LAB CHEMISTRY METHOD 09/19/2024 3:54 PM [facility] Comment:Calculation based on the Chronic Kidney Disease Epidemiology Collaboration (CKD-EPI) equation refit without adjustment for race. BUN/Creatinine Ratio 14.3 LAB CHEMISTRY METHOD 09/19/2024 3:54 PM [facility] Calcium 9.1 8.5 - 10.5 mg/dL LAB CHEMISTRY METHOD 09/19/2024 3:54 PM [facility] AST (SGOT) 16 10 - 42 unit/L LAB CHEMISTRY METHOD 09/19/2024 3:54 PM [facility] ALT (SGPT) 16 10 - 60 unit/L LAB CHEMISTRY METHOD 09/19/2024 3:54 PM [facility] Alkaline Phosphatase 103 42 - 121 unit/L LAB CHEMISTRY METHOD 09/19/2024 3:54 PM EDT [facility] Total Protein 7.6 6.0 - 8.0 g/dL LAB CHEMISTRY METHOD 09/19/2024 3:54 PM EDT [facility] Albumin 3.5 3.2 - 5.0 g/dL LAB CHEMISTRY METHOD 09/19/2024 3:54 PM EDT [facility] Total Bilirubin 0.6 0.0 - 1.4 mg/dL LAB CHEMISTRY METHOD 09/19/2024 3:54 PM EDT [facility] Blood Venous blood specimen / Unknown Venipuncture / Unknown 09/19/2024 2:00 PM EDT 09/19/2024 2:00 PM EDT Lu Bhardwaj NP LAB BLOOD ORDERABLES Final R esult Performing Organization Address [facility]/ZIP Co de Phone Number [facility] [address] [place] [address], [place] [phone] * (ABNORMAL) POCT Glucose, blood (08/30/2024 8:23 PM EDT) Only the most recent of3 resultswithin the time period is included. [facility] Glucose POCT 124(H) 70 - 100 mg/dL 08/30/2024 8:23 PM EDT [facility] Blood Capillary blood specimen / Unknown 08/30/2024 8:23 PM EDT 08/30/2024 8:24 PM EDT Rodrigo Farooq MD LAB POINT OF CARE TE ST DOCKED DEVICE UNSOLICITED RESULTS Final Result Performing Organization Address [facility]/ZIP Co de Phone Number [facility] [address] [place] [address], [place] [phone] * (ABNORMAL) Urinalysis with reflex microscopic and culture (08/30/2024 7:33 PM EDT) Specific [place] Urine >1.045(H) 1.003 - 1.030 LAB URINALYSIS [...] NP LAB URINE ORDERABLES Fin al Result [facility] [address] [place] [address], [place] [phone] * Brody urine culture tube (08/30/2024 7:33 PM EDT) [facility] Extra Tube Hold for add-ons. 08/30/2024 9:01 PM EDT [facility] Comment:Auto resulted. Urine Urine specimen obtained by clean catch procedure / Unknown Non-blood Collection / Unknown 08/30/2024 7:33 PM EDT 08/30/2024 7:48 PM EDT Liss Puentes NP LAB URINE ORDERABLES Fin al Result [facility] [address] [place] [address], [place] [phone] * Drug abuse screen 8a panel, urine (08/30/2024 7:33 PM EDT) [facility] Amphetamine Screen, Ur Negative Negative LAB CHEMISTRY METHOD 08/30/2024 8:24 PM EDT [facility] Comment:Certain OTC medicati ons containing ephedrine, phenylephrine, pseudoephedrine and phenylpropanolamine can cause false positive results. Barbiturate Screen, Ur Negative Negative LAB CHEMISTRY METHOD 08/30/2024 8:24 PM EDT [facility] Benzodiazepine Screen, Ur Negative Negative LAB CHEMISTRY METHOD 08/30/2024 8:24 PM EDT [facility] Cocaine Screen, Ur Negative Negative LAB CHEMISTRY METHOD 08/30/2024 8:24 PM EDT [facility] Opiate Screen, Ur Negative Negative LAB CHEMISTRY METHOD 08/30/2024 8:24 PM EDT [facility] Cannabinoid (THC) Screen, Ur Negative Negative LAB CHEMISTRY METHOD 08/30/2024 8:24 PM EDT [facility] Comment:Specimens from patie nts taking pantoprazole sodium (Protonix) have been shown to produce false positive results. Oxycodone Screen, Ur Negative Negative LAB CHEMISTRY METHOD 08/30/2024 8:24 PM EDT [facility] Fentanyl, Ur Negative Negative LAB CHEMISTRY METHOD 08/30/2024 8:24 PM EDT [facility] Urine Urine specimen obtained by clean catch procedure / Unknown Non-blood Collection / Unknown 08/30/2024 7:33 PM EDT 08/30/2024 7:48 PM EDT Narrative [facility] - 08/30/2024 8:24 PM EDT Assay cutoffs: Amphetamines 1000 ng/mL Barbiturates 200 ng/mL Benzodiazepines 200 ng/mL Cocaine 300 ng/mL Fentanyl 1 ng/mL Opiates 300 ng/mL Oxycodone 100 ng/mL THC 50 ng/mL Semi-quantitative assay for screening purposes only. Unconfirmed screening result should not be used for non-medical purposes. *ALTERNATE METHOD CONFIRMATION DONE UPON REQUEST ONLY* Liss Puentes BUSINESS OBJECTS REPORT DEVELOPER LAB URINE ORDERABLES Fin al Result [facility] [address] [place] [address], * MR Brain wo Contrast (08/30/2024 5:49 [...] by: Winsome Naylor MD on 08/30/2024 18:11:31 Liss Puentes BUSINESS OBJECTS REPORT DEVELOPER IMG MRI PROCEDURES Final Result * ECG 12 lead (08/30/2024 2:26 PM EDT) Ventricular Rate ECG 89 BPM GEMUSE Atrial Rate 89 BPM GEMUSE P-R Interval 130 ms GEMUSE QRS Duration 88 ms GEMUSE Q-T Interval 392 ms GEMUSE QTc 476 ms GEMUSE P Wave [place] 65 degrees GEMUSE R [place] 44 degrees GEMUSE T [place] 25 degrees GEMUSE ECG Interpretation Normal sinus rhythm Normal ECG When compared with ECG of 29-JAN-2023 15:12, No significant change was found Confirmed by MARCELINO ADLER ([id number]) on 08/31/2024 3:22:31 PM GEMUSE 08/30/2024 2:26 PM EDT 08/31/2024 3:22 PM EDT Demond Vuong MD ECG ORDERABLES Final Result [...] Signed Date: 08/30/2024 14:14 ET Workstation ID: [id number] Transcribed By: Self Edit Transcribed Date: 08/30/2024 [...] Signed Date: 08/30/2024 14:14 ET Workstation ID: [id number] Transcribed By: Self Edit Transcribed Date: 08/30/2024 14:13 ET us Demond VELASCO CT PROCEDURES Final Result * CT Angio [...] Signed Date: 08/30/2024 14:50 ET Workstation ID: [id number] Transcribed By: Self Edit Transcribed Date: 08/30/2024 [...] Omnipaque 370 injected. Scan was analyzed using [employer] AI based computer aided triage software. Total [...] is patent. Vertebrobasilar system is patent. Proximal security tech are patent. Major dural venous sinuses opacify [...] 90cc Omnipaque 370 injected. Scan wasanalyzed using [employer] AI based computer aided triage software. Total [...] is patent. Vertebrobasilar system is patent. Proximal security tech are patent. Major dural venous sinuses opacify normally with contrast. Extracranial structures are unremarkable. Degenerative changes in thebones. IMPRESSION: NO LARGE VESSEL OCCLUSION. -------- FINAL REPORT -------- Dictated By: Reji Cam Dictated Date: 08/30/2024 14:43 ET Assigned Physician: Reji Cam Reviewed and Electronically Signed By: Reji Cam Signed Date: 08/30/2024 14:50 ET Workstation ID: [id number] Transcribed By: Self Edit Transcribed Date: 08/30/2024 14:44 ET us Demond Vuong MD IMG CT PROCEDURES Final Result * Magnesium (08/30/2024 2:02 PM EDT) Magnesium 1.9 1.9 - 2.6 mg/dL LAB CHEMISTRY METHOD 08/30/2024 6:51 PM EDT [facility] Blood Venous blood specimen / Unknown Venipuncture / Unknown 08/30/2024 2:02 PM EDT 08/30/2024 2:25 PM EDT Liss Puentes NP LAB BLOOD ORDERABLES Fin al Result [facility] [address] [place] [address], [place] [phone] * Vitamin B12 (08/30/2024 2:02 PM EDT) Vitamin B-12 580 250 - 900 pcg/mL LAB CHEMISTRY METHOD 08/30/2024 7:13 PM EDT [facility] Blood Venous blood specimen / Unknown Venipuncture / Unknown 08/30/2024 2:02 PM EDT 08/30/2024 2:25 PM EDT Liss Puentes BUSINESS OBJECTS REPORT DEVELOPER LAB BLOOD ORDERABLES Fin al Result Performing Organization Address City/[facility]/ZIP Co de Phone Number [facility] [address] [place] [address], [place] [phone] * Ethanol (08/30/2024 2:02 PM EDT) Ethanol Level <3 0 - 10 mg/dL LAB CHEMISTRY METHOD 08/30/2024 6:51 PM EDT [facility] Blood Venous blood specimen / Unknown Venipuncture / Unknown 08/30/2024 2:02 PM EDT 08/30/2024 2:25 PM EDT Liss Puentes NP LAB BLOOD ORDERABLES Fin al Result Performing Organization Address [facility]/ZIP Co de Phone Number [facility] [address] [place] [address], [place] [phone] * External Diabetic Retina Eye Exam Report (07/02/2024) Anatomical Region Laterality Modality Ultrasound us Provider [facility] US PROCEDURES Final Result * Pap smear (05/03/2023) 05/03/2023 Narrative HISTORICAL TESTING LAB RESULTING AGENCY - 05/08/2023 2:56 PM EDT [id number] THINPREP PAP, IMAGED: NEGATIVE FOR SQUAMOUS INTRAEPITHELIAL LESION AND MALIGNANCY . QUINN CARMICHAEL(ASCP) (CASE ELECTRONICALLY SIGNED 05 08 2023) RESULT OF APTIMA HIGH RISK HPV ASSAY: HIGH RISK HPV: NEGATIVE (SEROTYPES 16,18,31,33,35,39,45,51,52,56,58,59,66,68) COMPLETED ON 2023-05-08 ADEQUACY: SATISFACTORY ENDOCERVICAL/TRANSFORMATION ZONE COMPONENT ABSENT. SOURCE: THINPREP PAP HPV ANY DX: REFLEX 16 AND 18, CERVICAL, IMAGED CLINICAL INFORMATION: HPV ANY DIAGNOSIS. MENOPAUSE, Z12.4 Jackeline Bright [facility] CYTOLOGY ORDERABLES Jadyn roseann Result [...] Most Recently Relevant to Health Maintenance Insurance [facility] MEDICARE Member Subscriber Plan / Payer (Ef fective 2023-Present) Name:GUERA DOYLESHAYAN Relation to Subscriber:Self Name:Guera Doyleshayan Payer ID:[id number] Group ID:[id number] Type:Not on file Address: [place] [address] [address] [place] [address] Advance Directives * Full Code - Confirmed [...] currently active code status orders. Care Teams Director Of Corporate Sponsorships Relationship Specialty Start Date End Date Jody Roland MD [address] [facility] [place] [address] PCP - General Internal Medicine 10/25/24
--- OUTSIDE RECORDS SUMMARY | 2024-11-21 13:47 | XMS_ITS | Encounter Summary ---
Author Organization [employer] Address [address] [place] [address] Care Team Providers Care Coater Operator Name Role Phone Jody Roland MD Primary Care Provider [phone] Encounter Details Date Type Department Care Team (Late st Contact Info) Description 11/06/2024 Results [facility] [address] [place] [address] Lu Chamberlain, GEODESY TEACHER [address] [place] [address] Social History Tobacco Use Types Packs/Day Years [...] Record ed Within the last 3 months, clarke goldstein many times did you visit the emergency [...] care for your loved ones. For example, child and adolescent psychiatrist or elderly care for an older adult? [...] Description 12/18/2024 11:00 AM EST Office Visit [facility] - [address] [address] Trish Hytat, ONEIL [address] [place] [address] documented as of this encounter Visit Diagnoses Not on filedocumented in this encounter Additional Health Concerns Assessment Noted Time PHQ-9 Depression Total Score: 9 09/14/19 25 11:07 AM EDT documented as of this encounter Care Teams Coater Operator Relationship Specialty Start Date End Date Jody Roland MD [address] [place] [address] PCP - General Internal Medicine 10/25/24 documented as of this encounter
--- OUTSIDE RECORDS SUMMARY | 2024-11-21 13:47 | XMS_ITS | Encounter Summary ---
Author Organization [employer] [place] [address] Care Team Providers Care Thread Winder Name Role Phone Jody Roland MD Primary Care Provider [phone] Reason for Visit * Reason Onset Date Comments Referral 10/03/2024 External Encounter Details Date Type Department Care Team (Late st Contact Info) Description 10/03/2024 Telephone Internal Medicine - [facility] [address] [place] [phone] Darrel Tony MD needs address update Social History Tobacco Use Types Packs/Day Years [...] ed Within the last 3 months, ho angelita many times did you visit the emergency [...] care for your loved ones. For example, director child development center or elderly care for an older adult? [...] Progress Notes * Mariia Sandhu MA - 10/04/2024 12:59 PM EDT SIRIAI : OTILIO Leigh I spoke with Ms. Doyle , per patient she was seen on 09/26/24 over at [address], provider Dr. Knight neurologist . Dr. Athreya order few referrals for MRA brain and MRI , echo ,MRA w/ contrast , creation duplex all test done over at [facility] . The reason was Karena was schedule far out , [place] neurologist was sooner . KA RMA * Lu Bhardwaj NP - 10/03/2024 5:20 PM EDT What is the patient need? Also, neurology has been calling this patient to see her and she declinedneurology appointment. * Beba Gar MA - 10/03/2024 2:34 PM EDT Last seen 09/19/24, referral pended. * Keiry Brody - 10/03/2024 2:26 PM EDT Myrna from [facility] returning missed call Would like a call back * Beba Gar MA - 10/03/2024 2:21 PM EDT Need more info. Left message to caller to call the office back, I am at extension [phone] * Savannah Carvalho - 10/03/2024 2:08 PM EDT Referral Request: What insurance does the patient have today? CCA Referrals cannot be processed if the insurance is not accurate. If the insurance listed above in red is NO BILLING INFORMATION FOUND FOR THIS ENCOUTNER The patients correct insurance must be obtained and registered in [facility] or their referral can not be processed. Who is calling to request this referral? Myrna nurse from [facility] If the caller is not the patient, what is their name? not applicable Ask the patient WHO referred them to this specialty: Patient self referred FIRST and LAST NAME of SPECIALIST PATIENT is seeing: TBD What specialty is this? Physical therapy DIAGNOSIS Patient is being seen for (Not a body part or a procedure): TIA Have you seen this SPECIALIST for this PROBLEM/DX before? If YES, when? No Have you checked REVIEW or the APPT DESK to see if this referral has already been done or has visits left? yes Is this visit: Initial Visit Address of Specialist: PA[place] [address] [place] [address] [address], [place] [address] Phone # of Specialist: [phone] Fax #: (if applicable): n/a Does patient have an appointment scheduled?: no Date of appointment- (including a retro-request): n/a Is this appointment related to: Not MVA, worker compensation, or surgery related documented in this encounter Plan of Treatment Upcoming Encounters Date Type Department Care Team (Late st Contact Info) Description 12/18/2024 11:00 AM EST Office Visit Endocrinology - [address] [address] Trish Hyatt PA [address] [place] [address] documented as of this encounter Visit Diagnoses Diagnosis TIA (transient ischemic attack)- Primary Unspecified transient cerebral ischemia documented in this encounter Additional Health Concerns Assessment Noted Time PHQ-9 Depression Total Score: 9 09/14/19 11:07 AM EDT documented as of this encounter Care Teams Thread Winder Relationship Specialty Start Date End Date Jody Roland MD [address] [place] [address] PCP - General Internal Medicine 10/25/24 documented as of this encounter
--- OUTSIDE RECORDS SUMMARY | 2024-11-21 13:47 | XMS_ITS | Encounter Summary ---
Author Organization [place] [address] Care Team Providers Care Decorating Machine Operator Name Role Phone Jody Roland MD Primary Care Provider [phone] Reason for Visit * Reason Onset Date Comments Request For Order(s) 10/22/2024 [facility] Encounter Details Date Type Department Care Team (Late st Contact Info) Description 10/22/2024 Telephone Internal Medicine - [facility] [address] [place] [phone] Darrel Tony MD needs address update Social [...] care for your loved ones. For example, childhood development teacher or elderly care for an older adult? [...] Progress Notes * Mariia Sandhu MA - 11/18/2024 12:57 PM EDT Signed and hand manually faxed back to * Arlene Mackenzie 10/22/2024 2:55 PM EDT [facility] Orders placed in Darrel Tony MD bin for signing, please fax to [phone]. documented in this encounter Plan of Treatment Upcoming Encounters Date Type Department Care Team (Late st Contact Info) Description 12/18/2024 11:00 AM EST Office Visit Endocrinology - [address] [place] [address] Trish Hyatt PA [address] [place] [address] documented as of this encounter Visit Diagnoses Not on filedocumented in this encounter Additional Health Concerns Assessment Noted Time PHQ-9 Depression Total Score: 9 09/14/19 11:07 AM EDT documented as of this encounter Care Teams Decorating Machine Operator Relationship Specialty Start Date End Date Jody Roland MD [address] [place] [address] PCP - General Internal Medicine 10/25/24 documented as of this encounter
== END 2024-11-21 10:55 | disposition home or self-care (01) ==
LOC: HO.US 10:54
PROVIDERS: Visit Provider Psychiatry & Neurology Neurology
DX: G45.9 Transient cerebral ischemic attack, unspecified (principal)
CPT/HCPCS: 93880

== ENCOUNTER → 2024-11-21 10:55 | Outpatient (BNV) | payer OTHER, SELFPAY | PROVIDERS: Visit Provider Radiology Diagnostic Radiology | DX: G45.9 Transient cerebral ischemic attack, unspecified (principal); E04.2 Nontoxic multinodular goiter | CPT/HCPCS: 93880 ==

== ENCOUNTER → 2024-12-20 08:59 | Outpatient (REF) | payer OTHER, SELFPAY ==
--- NOTE | 2024-12-20 09:02 | CA_ITS ---
Transthoracic Echocardiogram Patient (Last, First, Middle): Galina Doyle, Gender: Female Date of : 1965 Age: 59 Procedure Date: 12/20/2024 Procedure Type: Transthoracic Echocardiogram Location: OP Height: 175. cm Weight: 114.31 kg BSA: 2.28 m2 Heart Rate: 92 bpm BP: 145 / 90 mmHg Safety Physician: ERIS Estrella MD: Nathalia Knight MD Associate Sales Manager: Jose Elias Ortiz MD Symptoms: G45.9 - Transient cerebral ischemic attack, unspecified Study Quality: Technically Difficult ECG Rhythm: Sinus Conclusions: - 1. Technically limited study due to body habitus and difficult windows 2. LV ejection fraction is normal at 60 65% 3. Intracardiac shunting can not be ruled out on this study 4. Limited evaluation of cardiac valves with normal cardiac valvular Dopplers Findings Procedure Information Contrast agent, definity, is being given per protocol without apparent complications. Left Ventricle Normal left ventricular size, thickness, and systolic function. The visually estimated ejection fraction is between 60-65%. Spectral Doppler is indicative of a normal filling pattern. Right Ventricle The right ventricle was not well visualized. Atria The left atrium was not well visualized. Interatrial shunt cannot be excluded by agitated saline. The right atrium was not well visualized. Aortic Valve The aortic valve was not well visualized. There is no aortic valve stenosis. There is no aortic valve regurgitation. Mitral Valve The mitral valve was not well visualized. There is no mitral valve regurgitation. There is no mitral valve stenosis. Tricuspid Valve The tricuspid valve was not well visualized. Great Vessels The aorta was not well visualized. The pulmonary artery was not well visualized. Venous The inferior vena cava was not well visualized. Pericardium/Pleural The pericardium was not well visualized. Prior Study Comparison No prior study available for comparison. Recommendations, Care & Conclusions Consider a ESTEBAN if clinically appropriate. Measurements 2D Linear Measurements IVSd: 0.84 0.6-0.9/0.6-1.0 cm LVIDd: 4.44 3.9-5.3/4.2-5.9 cm LVIDd Index: 1.95 2.4-3.2/2.2-3.1 cm/m2 LVIDs: 3.15 2.0-3.6 cm LVPWd: 0.99 0.7-1.1 cm LA Diam: 3.30 2.7-3.8/3.0-4.0 cm LAIDs Index: 1.45 1.5-2.3 cm/m2 LV Mass: 166.30 67-162/88-224 g LV Mass Index: 72.94 43-95/49-115 g/m2 LVOT Diam: 2.00 3.0+(-)1.3 cm 2D Systolic Function EF 4C: 63.30 >55% EF 2C: 63.70 >55% EF BiP: 63.00 >55% Mitral Valve MV Pk E: 0.93 MV PK A: 0.78 MV Decel Time: 117.00 E/A: 1.20 E'Lateral: 7.51 E'Medial: 6.64 E/E' Med: 14.00 E/E' Lat: 12.40 PHT: 34.00 MVA PHT: 6.47 Decel [place]: 7.96 Aortic Valve AoV Pk Ari: 1.42 AoV Mn Ari: 0.97 AoV VTI: 0.28 AoV Pk Grad: 8.00 Aov Mn Grad: 5.00 KIRIT Cont.VTI: 2.37 LVOT LVOT Pk Ari: 1.06 LVOT Mn Ari: 0.75 LVOT VTI: 0.21 LVOT Pk Grad: 4.00 LVOT Mn Grad: 3.00 LVOT Diam: 2.00 LVOT Area: 3.14 Diastolic Function MV Pk E: 0.93 MV Pk A: 0.78 E/A: 1.20 E'Medial: 6.64 E/E' Med: 14.00 E' Laterial: 7.51 E/E' Lat: 12.40 Right Ventricle TVS' Ari: 9.03 Tricuspid Valve RA Press: 3.00 Great Vessels Aorta Sinus of Valsalva: 3.20 2.0-3.5 cm Ao Asc: 3.70 2.1-3.4 cm Pulmonary Veins Pulm Vein S/D 0.90 Pulmonary Valve PV Pk Ari: 0.92 Peak PV Grad: 3.00 Updated in Other Vendor System with Status of Final Jose Elias Ortiz MD electronically signed on 12/20/2024 6:03:31 PM with status of Final
--- OUTSIDE RECORDS SUMMARY | 2024-12-20 09:29 | XMS_ITS | Encounter Summary ---
Author Organization [employer] Address [address] [place] [address] Care Team Providers Care Liquor Clerk Name Role Phone Jody Roland MD Primary Care Provider [phone] Encounter Details Date Type Department Care Team (Late st Contact Info) Description 11/06/2024 Results Follow-Up [facility] - [facility] [address] [place] [address] Lu Chamberlain, [employer] PHOTOGRAPHER [address] [place] [address] Social History Tobacco Use Types Packs/Day Years [...] for your loved ones. For example, child day care provider or elderly care for an older adult? [...] Care Team (Late st Contact Info) Description 01/15/2025 9:15 AM EST Office Visit [facility] - [address] [address] Trish Hyatt, [employer] [address] [place] [address] documented as of this encounter Visit Diagnoses Not on filedocumented in this encounter Additional Health Concerns Assessment Noted Time PHQ-9 Depression Total Score: 9 09/14/19 25 11:07 AM EDT documented as of this encounter Care Teams Liquor Clerk Relationship Specialty Start Date End Date Jody Roland MD [address] [facility] [place] [address] PCP - General Internal Medicine 10/25/24 documented as of this encounter
--- OUTSIDE RECORDS SUMMARY | 2024-12-20 09:29 | XMS_ITS | Clinical Summary ---
Author Organization [place] [address] [address] [facility] Building Address [address] [place] [address] Phone Care Team Providers Care Operating Room Surgical Technician Name Role Phone Jody Roland MD Primary Care Provider [phone] Allergies Active Allergy Reactions Criticality Noted Date Comments Tramadol Rash 11/08/2023 Trazodone Rash 11/08/2023 Acetaminophen Headache 04/08/2024 Per pt Medications insulin aspart (NovoLOG) 100 UNIT/ML patient supplied [...] (incontinence). - Does not apply Active blood-glucose sensor (DEXCOM G6 SENSOR MISC) 1 sensor every 10 days Active triamcinolone (KENALOG) 0.1 % ointment APPLY TO AFFECTED AREA 2 TIMES DAILY FOR UP TO TWO WEEKS Activ e cloNIDine (CATAPRES) 0.2 mg tablet Take 1 tablet (0.2 mg total) by mouth 2 (two) times a day if needed (ANXIETY). Take 1 Tablet by mouth 2 times daily as needed for Other (Panic attacks). - Oral Active hydroxychloroq uine (PLAQUENIL) 200 mg tablet Take 1 tablet (200 mg total) by mouth 2 (two) times a day. Take 1 Tab by mouth 2 times daily. - Oral Active mirtazapine (REMERON) 30 mg tablet Take 1 tablet (30 mg total) by mouth at bedtime. Active tiZANidine (ZANAFLEX) 4 mg capsule Take 1 capsule (4 mg total) by mouth 3 (three) times a day. 024 Active blood-glucose transmitter (GenJuice G6 Transmitter) deviceIndicati ons:Type 2 diabetes mellitus with other diabetic kidney complication ([facility] V24, [facility] V28) Change transmitter every 3 months 3 each 3 025 Active nystatin (MYCOSTATIN) 100,000 unit/gram powder APPLY TO AREA OF CONCERN 2-3 TIMES PER DAY WHENEVER RASH IS PRESENT. 15 g 3 025 Active cholecalcifero l (VITAMIN D-3) 50 mcg (2,000 unit) tabletIndicati ons:Vitamin D deficiency, unspecified TAKE 1 TABLET BY MOUTH EVERY DAY 90 tablet 025 Active buPROPion XL (WELLBUTRIN XL) 150 mg 24 hr tablet Take 1 tablet (150 mg total) by mouth 1 (one) time each day in the morning. 90 tablet 3 025 Active lidocaine (LIDODERM) 5 % patchIndicatio ns:Essential hypertension, benign,Type 2 diabetes mellitus with microalbuminur ia, with long-term current use of insulin ([facility] V24, [facility] V28) Apply topically 1 (one) time each day. Place 1 Patch onto the skin every 24 hours. Apply for no more than 12 hours in any 24 hour period. - Transdermal 90 patch Active ammonium lactate (AmLactin) 12 % lotion Apply topically if needed for dry skin. 400 g 025 06/26 Active amLODIPine (NORVASC) 2.5 mg tablet Take 1 Tablet by mouth daily. With the 5 mg daily for a total of 7.5 mg - Oral 90 tablet 1 025 Active amLODIPine (NORVASC) 5 mg tablet Take 1 Tablet by mouth daily. With the 2.5 mg daily for a total of 7.5 mg - Oral 90 tablet 1 Active QUEtiapine (SEROquel) 100 mg tablet Take 1.5 tablets (150 mg total) by mouth at bedtime. Active metFORMIN (GLUCOPHAGE) 1,000 mg tablet TAKE 1 TABLET BY MOUTH TWICE A DAY WITH FOOD 168 tablet 2 Active gabapentin (NEURONTIN) 600 mg tablet Take 1 tablet (600 mg total) by mouth 3 (three) times a day. Acti ve oxyCODONE (ROXICODONE) 10 mg immediate release tabletIndicati ons:Other chronic pain Take 0.5 tablets (5 mg total) by mouth every 8 (eight) hours if needed for severe pain for up to 28 days. Max Daily Amount: 15 mg 42 tablet 12/30 Active glucagon 1 mg/0.2 mL auto-injectorI ndications:Typ e 2 diabetes mellitus with diabetic microalbuminur ia, with long-term current use of insulin (CMS/[facility] V24, CMS/HCC V28) Inject 1 mg under the skin 1 (one) time if needed (severe hypoglycemcia) for up to 1 dose. Inject 1 Device into the skin as needed for Other (low blood sugar). - SubcutaneousInject 1 Device into the skin as needed for Other (low blood sugar). - Subcutaneous 1 each 1 Active insulin glargine (LANTUS SoloStar) 100 unit/mL (3 mL) injection pen Inject 10 Units under the skin at bedtime. 15 mL Active blood-glucose meter (OneTouch Verio Flex meter) misc Use to check BS 3 times a day 1 each Active blood sugar diagnostic (OneTouch Verio test strips) test strip Use to check BS 3 times a day 100 each 12 12/03 Active lancets lancets Check blood sugar 3 times a day or as directed. Onetouch delica 1 each 11 12/03 Active naproxen (NAPROSYN) 500 mg tablet Take 1 tablet (500 mg total) by mouth 2 (two) times a day if needed for mild pain. 90 tablet 1 Active atorvastatin (LIPITOR) 10 mg tablet TAKE 1 TABLET BY MOUTH 1 TIME EACH DAY. 90 tablet 1 Active lisinopriL (PRINIVIL,ZEST RIL) 20 mg tablet TAKE 1 TABLET (20 MG TOTAL) BY MOUTH ONE TIME EACH DAY 90 tablet 1 Active hydroCHLOROthi azide (HYDRODIURIL) 50 mg tablet TAKE 1 TABLET BY MOUTH 1 TIME EACH DAY. 90 tablet 1 Active glucagon 1 mg/0.2 mL auto-injector Inject 1 Device into the skin as needed for Other (low blood sugar). - Subcutaneous 12/03 Discontinued( Reorder) blood-glucose transmitter (DEXCOM G6 TRANSMITTER MISC) transmitter every 3 months 12/03 Discontinued( Formulary change) gabapentin (NEURONTIN) 600 mg tablet Take 2 tablets (1,200 mg total) by mouth 2 (two) times a day. Take 2 Tablets by mouth 2 Times Daily. - Oral 12/03 Discontinued( Formulary change) lancets 30 gauge misc 1 Stick by Does not apply route 3 times daily. - Does not apply 12/03 Discontinued( Reorder) glucose blood test strip 1 Strip by Does not apply route 3 times daily. - Does not apply 12/03 Discontinued( Reorder) atorvastatin (LIPITOR) 10 mg tablet Take 1 tablet (10 mg total) by mouth 1 (one) time each day. 90 each 1 025 12/17 Discontinued lisinopriL (PRINIVIL,ZEST RIL) 20 mg tablet Take 1 tablet (20 mg total) by mouth 1 (one) time each day. 90 tablet 1 12/17 Discontinued hydroCHLOROthi azide (HYDRODIURIL) 50 mg tablet Take 1 tablet (50 mg total) by mouth 1 (one) time each day. 90 tablet 1 025 12/17 Discontinued insulin glargine (LANTUS SoloStar) 100 unit/mL (3 mL) injection pen Inject 35 Units under the skin at bedtime. 12/03 Discontinued( Reorder) naproxen (NAPROSYN) 500 mg tablet Take 1 tablet (500 mg total) by mouth 2 (two) times a day if needed for mild pain (pain). 90 tablet 1 025 12/11 Discontinued oxyCODONE (ROXICODONE) 10 mg immediate release tabletIndicati ons:Other chronic pain Take 0.5 tablets (5 mg total) by mouth every 8 (eight) hours if needed for severe pain for up to 28 days. Max Daily Amount: 15 mg 42 tablet 025 12/02 Discontinued( Reorder) glucose blood test stripIndicatio ns:Type 2 diabetes mellitus with diabetic microalbuminur ia, with long-term current use of insulin ([facility] V24, [facility] V28) Used to test blood sugar three times a day 200 each 5 025 12/03 Discontinued( Formulary change) blood-glucose meter miscIndication s:Type 2 diabetes mellitus with diabetic microalbuminur ia, with long-term current use of insulin ([facility] V24, [facility] V28) Used to monitor blood sugar 1 each 025 12/03 Discontinued lancets 30 gauge miscIndication s:Type 2 diabetes mellitus with diabetic microalbuminur ia, with long-term current use of insulin ([facility] V24, [facility] V28) Used to test blood sugar three times a day 200 each 5 025 12/03 Discontinued( Formulary change) Active Problems Problem Noted Date Diagnosed Date Transient neurological symptoms 08/30/2024 Morbid obesity ([facility] V24, [facility] V28) 2024 CKD (chronic kidney disease) stage 2, GFR 60-89 ml/min 12/12/2023 Essential hypertension, benign 11/08/2023 Class 2 obesity due to exces s calories with body mass index (BMI) of 36.0 to 36.9 in adult 11/08/2023 Discoid lupus 11/08/2023 Esophageal reflux 11/08/2023 Systemic lupus erythematosus ([facility] V24, [facility] V28) 11/08/2023 Depression, major 11/08/2023 Fibromyalgia 11/08/2023 Carpal tunnel syndrome, bilateral 11/08/2023 Type 2 diabetes mellitus, wi th long-term current use of insulin ([facility] V24, [facility] V28) 11/08/2023 Adrenal adenoma, left 11/08/2023 Type 2 diabetes mellitus wit h microalbuminuria, with long-term current use of insulin ([facility] V24, [facility] V28) 11/08/2023 Microalbuminuria 11/08/2023 Lupus anticoagulant positive 11/08/2023 Vitamin D deficiency 11/08/2023 Diabetic polyneuropathy asso ciated with type 2 diabetes mellitus ([facility] V24, [facility] V28) 11/08/2023 Other chronic pain 11/08/2023 Pancreatitis 11/08/2023 Primary osteoarthritis of right knee 11/08/2023 Encounters Date Type Department Care Team Description 12/03/2024 7:45 AM EDT Office Visit Endocrinology [address] [phone] Trish Hyatt PA Type 2 diabetes mellitus with diabetic microalbuminuria, with long-term current use of insulin ([facility] V24, [facility] V28) (Primary Dx); Essential hypertension, benign; CKD (chronic kidney disease) stage 2, GFR 60-89 ml/min; Microalbuminuria 11/26/2024 3:00 PM EDT Office Visit Internal Medicine - [facility] [address] [place], [place] [phone] Andres Gunn NP Pain of left calf (Primary Dx) 11/06/2024 Results Follow-Up Internal [facility] [address] [facility] [place], [place] [phone] Lu Chamberlain NP 10/23/2024 1:00 PM EDT Ancillary Procedure [facility] - [facility] [address] [place] [phone] Chest pain, unspecified type; Left arm pain 10/22/2024 Telephone Internal Medicine - [facility] [address] [place], [place] [phone] Darrel Tony MD 10/21/2024 9:15 AM EDT Ancillary Procedure [facility] - [address] [place] [phone] Chest pain, unspecified type; Left arm pain 10/03/2024 [facility] [address] [place], [place] [address] [phone] Darrel Tony MD 10/03/2024 Telephone Internal Medicine [address] [place] [phone] Darrel Tony MD 09/19/2024 2:07 PM EDT - 09/19/2024 11:59 PM EDT [facility] [address] [place], [place] [address] [phone] Discharge Disposition: Home or Self Care 09/19/2024 1:00 PM EDT Office Visit Internal Medicine [address] [place] [phone] Lu Chamberlain, OTILIO TIA (transient ischemic attack) (Primary Dx); Chest pain, unspecified type; Type 2 diabetes mellitus without complication, with long-term current use of insulin ([facility] V24, [facility] V28); Left arm pain; Acute nonintractable headache, unspecified headache type from Last 3 Months Immunizations Immunization Administration [...] CHOLECYSTECTOMY 1998 PROCEDURE: LAPAROSCOPY, CHOLECYSTECTOMY SECTION PROCEDURE: [place] DELIVERY ONLY; COMMENT: X4 TUBAL LIGATION PROCEDURE: HISTORICAL TUBAL LIGATION CHOLECYSTECTOMY PROCEDURE: WI LAPAROSCOPY SURG CHOLECYSTECTOMY Medical History Medical History Date Comments Other pulmonary embolism and infarction 1998 DX:Other pulmonary embolism and infarction 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; COMMENT: scalp, arms; + biopsy 11/2005 Systemic lupus erythematosus ([facility] V24, [facility] V28) 09/01/2006 DX:Systemic lupus erythemato espinoza (HCC); COMMENT: DISCOID LESIONS, SUB-ACUTE SKIN LESIONS ARTHRALGIAS, MILD PROTEINURIA + Anti-DNA, 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 For example, early childhood education specialist or elderly care for an older adult? [...] Sign Reading Time Taken Comments Blood Pressure 137/94 12/03/2024 7:58 AM EDT Pulse 85 12/03/2024 7:58 AM EDT Temperature 36.2 C (97.1 F) 12/03/2024 7:58 AM EDT Respiratory Rate 18 08/30/2024 11:08 PM EDT Oxygen Saturation 99% 08/30/2024 11:08 PM EDT Inhaled Oxygen Concentration - - Weight 116 kg (255 lb) 12/03/2024 7:58 AM EDT Height 175.3 cm (5' 9 ) 12/03/2024 7:58 AM EDT Body Mass Index 37.66 12/03/2024 7:58 AM EDT Plan of Treatment Upcoming Encounters Date Type Department Care Team (Late st Contact Info) Description 01/15/2025 9:15 AM EST Office Visit Endocrinology - [place] [address] [place] [phone] Trish Hyatt PA [address] [place] [address] Health Maintenance Due Date Last Done Comments [...] complication, with long-term current use of insulin ([facility] V24, [facility] V28) EXTERNAL DIABETIC RETINA EYE EXAM 07/02/2024 PAP [...] of2 resultswithin the time period is included. Provider [facility] LAB BLOOD ORDERABLES Fin al Result * CARDIAC HOLTER MONITOR (REPORT GENERATED IN HOUSE) (10/23/2024 1:19 PM EDT) Anatomical Region Laterality Modality Cardiac Diagnost ic Narrative 11/04/2024 7:29 PM EDT [facility] DI[facility]NOSTIC TESTING DEPARTMENT [address] [place] [address] TEL: FAX: Type of Test: 48 Hour Holter Monitor Date of Test: 10/23/2024 Ordering Provider: Lu Bhardwaj NP Reason for Test: Chest pain, unspecified [...] 5: Diary returned with no symptoms noted. us Lu Bhardwaj NP [facility] CARDIAC SERVICES PROCEDUR [...] Signed Date: 09/19/2024 19:50 ET Workstation ID: [id number] Transcribed By: Self Edit Transcribed Date: 09/19/2024 [...] Signed Date: 09/19/2024 19:50 ET Workstation ID: [id number] Transcribed By: Self Edit Transcribed Date: 09/19/2024 19:47 ET us Lu Bhardwaj NP IMG XR PROCEDURES Final Resu lt * Thyroid stimulating hormone with reflex to free t4 and free t3 (09/19/2024 2:00 PM EDT) TSH 1.48 0.40 - 4.00 mcIU/mL LAB CHEMISTRY METHOD 09/19/2024 4:46 PM EDT [facility] Blood Venous blood specimen / Unknown Venipuncture / Unknown 09/19/2024 2:00 PM EDT 09/19/2024 2:00 PM EDT us Lu Bhardwaj PROCESS ANALYST LAB BLOOD ORDERABLES Final R esult [facility] [address] [place] [address], [place] [phone] * Lipid panel with reflex to direct LDL (09/19/2024 2:00 PM EDT) Cholesterol 137 0 - 200 mg/dL LAB CHEMISTRY METHOD 09/19/2024 3:54 PM EDT [facility] Triglycerides 106 0 - 150 mg/dL LAB CHEMISTRY METHOD 09/19/2024 3:54 PM EDT [facility] HDL 52 >=40 mg/dL LAB CHEMISTRY METHOD 09/19/2024 3:54 PM EDT [facility] LDL Calculated 64 0 - 100 mg/dL LAB CHEMISTRY METHOD 09/19/2024 3:54 PM EDT [facility] Comment:Estimated LDL Calcul ated using equation: Total cholesterol - HDL cholesterol - (Triglycerides/5) VLDL Cholesterol Bishop 21.2 mg/dL LAB CHEMISTRY METHOD 09/19/2024 3:54 PM EDT [facility] Non HDL Chol. (LDL+VLDL) 85 <145 mg/dL LAB CHEMISTRY METHOD 09/19/2024 3:54 PM EDT [facility] Chol/HDL Ratio 2.6 0.0 - 4.4 LAB CHEMISTRY METHOD 09/19/2024 3:54 PM EDT [facility] Blood Venous blood specimen / Unknown Venipuncture / Unknown 09/19/2024 2:00 PM EDT 09/19/2024 2:00 PM EDT us Lu Bhardwaj PROCESS ANALYST LAB BLOOD ORDERABLES Final R esult [facility] [address] [place] [address], * (ABNORMAL) CBC auto differential (09/19/2024 2:00 PM EDT) WBC 6.0 4.8 - 10.8 K/mcL LAB HEMETOLOGY METHOD 09/19/2024 3:59 PM EDT [facility] RBC 4.30 3.80 - 4.80 M/mcL LAB HEMETOLOGY METHOD 09/19/2024 3:59 PM EDT [facility] Hemoglobin 12.3 11.5 - 16.0 g/dL LAB HEMETOLOGY METHOD 09/19/2024 3:59 PM EDT [facility] Hematocrit 40.1 35.0 - 47.0 % LAB HEMETOLOGY METHOD 09/19/2024 3:59 PM EDT [facility] MCV 93.3 79.0 - 98.0 FL LAB HEMETOLOGY METHOD 09/19/2024 3:59 PM EDT [facility] MCH 28.6 27.0 - 32.0 pcg LAB HEMETOLOGY METHOD 09/19/2024 3:59 PM EDT [facility] MCHC 30.7(L) 32.0 - 37.0 g/dL LAB HEMETOLOGY METHOD 09/19/2024 3:59 PM EDT [facility] RDW 13.8 11.0 - 15.0 % LAB HEMETOLOGY METHOD 09/19/2024 3:59 PM EDT [facility] Platelets 262 130 - 400 K/mcL LAB HEMETOLOGY METHOD 09/19/2024 3:59 PM EDT [facility] MPV 10.6 7.0 - 11.0 FL LAB HEMETOLOGY METHOD 09/19/2024 3:59 PM EDT [facility] NRBC 0.0 <1.0 % LAB HEMETOLOGY METHOD 09/19/2024 3:59 PM EDT [facility] NRBC Absolute 0.00 <0.10 K/mcL LAB HEMETOLOGY METHOD 09/19/2024 3:59 PM EDT [facility] Neutrophils Relative 41.8 % LAB HEMETOLOGY METHOD 09/19/2024 3:59 PM EDT [facility] Lymphocytes Relative 48.2 % LAB HEMETOLOGY METHOD 09/19/2024 3:59 PM EDT [facility] Monocytes Relative 6.5 % LAB HEMETOLOGY METHOD 09/19/2024 3:59 PM EDT [facility] Eosinophils Relative 2.5 % LAB HEMETOLOGY METHOD 09/19/2024 3:59 PM EDT [facility] Basophils Relative 0.7 % LAB HEMETOLOGY METHOD 09/19/2024 3:59 PM EDT [facility] Immature Granulocytes Relative 0.3 % LAB HEMETOLOGY METHOD 09/19/2024 3:59 PM EDT [facility] Neutrophils Absolute 2.52 1.50 - 7.00 K/mcL LAB HEMETOLOGY METHOD 09/19/2024 3:59 PM EDT [facility] Lymphocytes Absolute 2.90 1.00 - 5.00 K/mcL LAB HEMETOLOGY METHOD 09/19/2024 3:59 PM EDT [facility] Monocytes Absolute 0.39 0.20 - 1.00 K/mcL LAB HEMETOLOGY METHOD 09/19/2024 3:59 PM EDT [facility] Eosinophils Absolute 0.15 0.00 - 0.50 K/mcL LAB HEMETOLOGY METHOD 09/19/2024 3:59 PM EDT [facility] Basophils Absolute 0.04 0.00 - 0.20 K/mcL LAB HEMETOLOGY METHOD 09/19/2024 3:59 PM EDT [facility] Immature Granulocytes Absolute 0.02 0.00 - 0.03 K/mcL LAB HEMETOLOGY METHOD 09/19/2024 3:59 PM EDT [facility] Blood Venous blood specimen / Unknown Venipuncture / Unknown 09/19/2024 2:00 PM EDT 09/19/2024 2:00 PM EDT Lu Bhardwaj PROCESS ANALYST LAB BLOOD ORDERABLES Final R esult Performing Organization Address [facility]/ZIP Co de Phone Number [facility] [address] [place] [address], [place] [phone] * Vitamin D 25 hydroxy (09/19/2024 2:00 PM EDT) Vit D, 25-Hydroxy 45.3 30.0 - 80.0 ng/mL LAB CHEMISTRY METHOD 09/19/2024 4:45 PM EDT [facility] Blood Venous blood specimen / Unknown Venipuncture / Unknown 09/19/2024 2:00 PM EDT 09/19/2024 2:00 PM EDT Darrel Tony MD LAB BLOOD ORDERABLES Jadyn l Result Performing Organization Address [facility]/ZIP Co de Phone Number [facility] [address] [place] [address], [place] [phone] * (ABNORMAL) Activated partial thromboplastin time (09/19/2024 2:00 PM EDT) aPTT 86.2(H) 24.1 - 39.3 sec LAB COAGULATION METHOD 09/19/2024 4:11 PM EDT [facility] Blood Venous blood specimen / Unknown Venipuncture / Unknown 09/19/2024 2:00 PM EDT 09/19/2024 2:00 PM EDT us Lu Bhardwaj PROCESS ANALYST LAB BLOOD ORDERABLES Final R esult Performing Organization Address City/[facility]/ZIP Co de Phone Number [facility] [address] [place] [address], [place] [phone] * Prothrombin time with INR (09/19/2024 2:00 PM EDT) [facility] Protime 11.1 10.6 - 13.9 sec LAB COAGULATION METHOD 09/19/2024 3:39 PM EDT [facility] INR 0.9 LAB COAGULATION METHOD 09/19/2024 3:39 PM EDT [facility] Blood Venous blood specimen / Unknown Venipuncture / Unknown 09/19/2024 2:00 PM EDT 09/19/2024 2:00 PM EDT us Lu Bhardwaj PROCESS ANALYST LAB BLOOD ORDERABLES Final R esult Performing Organization Address [facility]/ZIP Co de Phone Number [facility] [address] [place] [address], [place] [phone] * Hemoglobin A1c (09/19/2024 2:00 PM EDT) [facility] Hemoglobin A1C 5.1 <6.5 % LAB CHEMISTRY METHOD 09/19/2024 9:44 PM EDT [facility] Mean Bld Glu Estim. 100 mg/dL LAB CHEMISTRY METHOD 09/19/2024 9:44 PM EDT [facility] Blood Venous blood specimen / Unknown Venipuncture / Unknown 09/19/2024 2:00 PM EDT 09/19/2024 2:00 PM EDT us Lu Bhardwaj PROCESS ANALYST LAB BLOOD ORDERABLES Final R esult Performing Organization Address City/[facility]/ZIP Co de Phone Number [facility] [address] [place] [address], [place] [phone] * (ABNORMAL) Comprehensive metabolic panel (09/19/2024 2:00 PM EDT) [facility] Signature Sodium 141 133 - 145 mmol/L LAB [...] LAB CHEMISTRY METHOD 09/19/2024 3:54 PM EDT [facility] Alkaline Phosphatase 103 42 - 121 unit/L LAB CHEMISTRY METHOD 09/19/2024 3:54 PM EDT [facility] Total Protein 7.6 6.0 - 8.0 g/dL LAB CHEMISTRY METHOD 09/19/2024 3:54 PM EDT [facility] Albumin 3.5 3.2 - 5.0 g/dL LAB CHEMISTRY METHOD 09/19/2024 3:54 PM EDT [facility] Total Bilirubin 0.6 0.0 - 1.4 mg/dL LAB CHEMISTRY METHOD 09/19/2024 3:54 PM EDT [facility] Blood Venous blood specimen / Unknown Venipuncture / Unknown 09/19/2024 2:00 PM EDT 09/19/2024 2:00 PM EDT us Lu Bhardwaj NP LAB BLOOD ORDERABLES Final R esult [facility] [address] [place] [address], [place] [phone] * External Diabetic Retina Eye Exam Report (07/02/2024) Anatomical Region Laterality Modality Ultrasound us Provider [facility] IM US PROCEDURES Final Result * Pap smear (05/03/2023) 05/03/2023 Narrative HISTORICAL TESTING LAB RESULTING AGENCY - 05/08/2023 2:56 PM EDT [id number] THINPREP PAP, IMAGED: NEGATIVE FOR SQUAMOUS INTRAEPITHELIAL [...] ID:[id number] Group ID:[id number] Type:Not on file Address: [place] [address] [address] [id number] Advance Directives * Full Code - Confirmed [...] currently active code status orders. Care Teams Operating Room Surgical Technician Relationship Specialty Start Date End Date Jody Roland MD [address] [place] [phone] PCP - General Internal Medicine 10/25/24
--- OUTSIDE RECORDS SUMMARY | 2024-12-20 09:29 | XMS_ITS | Encounter Summary ---
Author Organization [place] [address] Care Team Providers Care Broke Beater Machine Operator Name Role Phone Jody Roland MD Primary Care Provider [phone] Reason for Visit * Reason Onset Date Comments Referral 10/03/2024 External Encounter Details Date Type Department Care Team (Late st Contact Info) Description 10/03/2024 Telephone Internal Medicine - [facility] [address] [facility] [place] [id number] Darrel Tony MD [address] [address] Social History Tobacco Use Types Packs/Day Years [...] care for your loved ones. For example, childcare aide or elderly care for an older adult? [...] was seen on 09/26/24 over at [address] [facility], provider Dr. Knight neurologist . Dr. Knight order few referrals for MRA brain and MRI , echo ,MRA w/ contrast , creation duplex all test done over at [facility] . The reason was Karena was schedule far out , [place] neurologist was sooner . KA RMA * Lu Bhardwaj NP - 10/03/2024 5:20 PM EDT What is the patient need? Also, neurology has been calling this patient to see her and she declinedneurology appointment. * Beba Gar MA - 10/03/2024 2:34 PM EDT Last seen 09/19/24, referral pended. * Keiry Brody - 10/03/2024 2:26 PM EDT Myrna from [facility] returning missed call Would like a call back * Beba Gar MA - 10/03/2024 2:21 PM EDT Need more info. Left message to caller to call the office back, I am at extension [phone] * Savannah Carvalho - 10/03/2024 2:08 PM EDT Referral Request: What insurance does the patient have today? [facility] Referrals cannot be processed if the insurance is not accurate. If the insurance listed above in red is NO BILLING INFORMATION FOUND FOR THIS ENCOUTNER The patients correct insurance must be obtained and registered in [facility] or their referral can not be processed. Who is calling to request this referral? Myrna nurse from [facility] If the caller is not the patient, [...] this visit: Initial Visit Address of Specialist: [address], [place] [address] Phone # of Specialist: [phone] Fax #: (if applicable): n/a Does patient have an appointment scheduled?: no Date of appointment- (including a retro-request): n/a Is this appointment related to: Not MVA, worker compensation, or surgery related documented in this encounter Plan of Treatment Upcoming Encounters Date Type Department Care Team (Late st Contact Info) Description 01/15/2025 9:15 AM EST Office Visit Endocrinology - [address] [address] Trish Hyatt PA [address] [place] [address] documented as of this encounter Visit Diagnoses Diagnosis TIA (transient ischemic attack)- Primary Unspecified transient cerebral ischemia documented in this encounter Additional Health Concerns Assessment Noted Time PHQ-9 Depression Total Score: 9 09/14/19 11:07 AM EDT documented as of this encounter Care Teams Broke Beater Machine Operator Relationship Specialty Start Date End Date Jody Roland MD [address] [place] [address] PCP - General Internal Medicine 10/25/24 documented as of this encounter
== END ==
LOC: HO.CARD 08:59
PROVIDERS: PCP Internal Medicine; Visit Provider Psychiatry & Neurology Neurology
DX: M47.816 Spondylosis without myelopathy or radiculopathy, lumbar region (principal); E11.40 Type 2 diabetes mellitus with diabetic neuropathy, unspecified; M79.7 Fibromyalgia; Z79.899 Other long term (current) drug therapy
CPT/HCPCS: 93306; 99212; Q9957

== ENCOUNTER → 2024-12-20 09:02 | Outpatient (BNV) | payer OTHER, SELFPAY | PROVIDERS: PCP Internal Medicine; Visit Provider Internal Medicine Cardiovascular Disease | DX: G45.9 Transient cerebral ischemic attack, unspecified (principal) | CPT/HCPCS: 93306 ==

== ENCOUNTER 2024-12-20 12:45 | Outpatient (AMB) | payer OTHER, SELFPAY ==
--- NOTE | 2024-12-20 13:01 | MHC.OFFVIS ---
Vital Signs 12/20/24 13:02 Height 5 ft 9 in Weight 252 lb BMI 37.2 BP 169/85 H Blood Pressure Location Lt brachial Position Sitting Respiration 16 Pulse 98 Pulse Source Pulse Oximeter Pulse Oximetry (%) 99 Oxygen Delivery Method Room Air Intake Visit Reasons: PAIN IN LEFT CALF Tire Vulcanizer Required: No Accompanied by: Self / Same As Patient Allergies tramadol Allergy (Severe, Verified 12/20/24 13:01) severe rash trazodone Adverse Reaction (Severe, Verified 12/20/24 13:01) hives HPI Comments Details: The patient is a 59-year-old female presenting with chronic back pain and knee pain post-surgery. The knee pain began after surgery on April 03 of this year, which has since been a significant concern. The patient had previously experienced 80% relief from back pain following diagnostic MBB injections in February, but the knee surgery and subsequent recovery delayed further treatment. The patient reports chronic back pain that has persisted despite the use of patches, ibuprofen, and other pain management strategies. The pain is exacerbated by prolonged standing or walking, significantly impacting her quality of life. She also reports pain in her shoulders, calves, ankles, and feet, which she attributes to her lupus diagnosis. Patient prescribed 1200mg Gabapentin TID but states it does not help with her pain and she has not taken it in months despite recently filling it at the pharmacy. She has not tried Lyrica in the past but would be willing to try and would prefer this before further injections. She is adamant that she has not been taking Gabapentin and is aware they cannot be taken together. The patient has a history of lupus, for which she is currently taking hydroxychloroquine, although she reports that it is not providing adequate relief for her joint pain. She also experienced a transient ischemic attack recently, adding to her health concerns. - Onset: Chronic back pain with knee pain post-surgery since April 03. - Quality: Persistent pain despite patches and ibuprofen. - Location: Back, shoulders, calves, ankles, feet. - Exacerbating factors: Prolonged standing or walking. - Impact: Significant reduction in quality of life. - Affect: Pain significantly impacts quality of life. - Analgesia: Currently using ibuprofen and patches; considering Lyrica. - Adverse Effects: None reported from current medications. - Activities of Daily Living: Pain limits ability to stand or walk for extended periods. - Aberrant Drug Related Behaviors: None reported. [facility], [facility] Medical History (Updated 12/18/24 @ 11:49 by Monalisa Quiroz MD) TIA (transient ischemic attack) Lupus Osteoarthritis of right knee Arthritis Chronic renal insufficiency Glaucoma Pulmonary embolism GERD (gastroesophageal reflux disease) Diabetes Lupus anticoagulant disorder HTN (hypertension) Depression Osteoarthritis Lumbar spondylosis Lower back pain Smoker Bilateral knee swelling Hypertension Surgical History Status post right knee replacement History of esophagogastroduodenoscopy (EGD) H/O colonoscopy Hx of excision of mass Hx laparoscopic cholecystectomy Hx of tubal ligation Hx of section Family History Brother Diabetes Mother Hypertension Breast cancer, Onset Age: 49 Father Hypertension Maternal Grandmother Breast cancer Maternal Aunt Breast cancer, Onset Age: 53 Social History Household Members: Family and Children Household Members Other:: children Housing: House Are you a primary health care attorney to a significant other at home: No Do you presently have visiting nurse or other home services: Yes (rn access) Alcohol intake: never Comment: all ordered meds give Patient Tobacco Use Status: Current everyday Tobacco user Tobacco use type: Cigarette Cigarette Packs Per Day: 0.5 Years Smoked: 32 service: No Current occupational status: unemployed and disabled Gender identity: Female Review of Systems Narrative - Musculoskeletal: Reports chronic back pain, knee pain, joint pain in shoulders, calves, ankles, and feet. - Neurological: Reports transient ischemic attack. - General: Reports significant impact on quality of life due to pain. Physical Exam Exam Exam: General: awake, alert, oriented. Answers questions appropriately. Fully engaged in examination. Skin: warm, dry, intact HEENT: Normocephalic. Hearing intact. Cardiac: External chest normal in appearance. Respiratory: No cough, audible wheezing or stridor. Abdomen: without gross distension. MS: No obvious swelling or deformities. Able to transition from sit to stand unassisted. Ambulates with bilaterally normal heel strike and toe off Neurological: Oriented to person, place, time and situation. Thought process intact. No gait abnormalities appreciated. Psychiatric: Appropriate mood and affect. Good judgment and insight. Vital Signs: Last Vital Signs Pulse 98 12/20/24 13:02 Resp 16 12/20/24 13:02 BP 169/85 H 12/20/24 13:02 Pulse Ox 99 12/20/24 13:02 Oxygen Delivery Method Room Air 12/20/24 13:02 BMI result Body Mass Index 37.2 Results Reviewed Results Reviewed: 11/01/2022 XR/XR lumbar spine 2-3V FINDINGS: 5 nonrib-bearing lumbar-type vertebral bodies. Vertebral body heights are maintained. Alignment is maintained. Mild degenerative disc disease at L5-S1 with loss of disc space height, degenerative endplate spurring and facet arthropathy. Right upper quadrant cholecystectomy clips. IMPRESSION: Mild degenerative disc disease at L5-S1 with loss of disc space height, degenerative endplate spurring and facet arthropathy. Assessment & Plan Assessment & Plan (1) Osteoarthritis of lumbar spine: Code(s): M47.816 - Spondylosis without myelopathy or radiculopathy, lumbar region Category: Medical (2) Lumbar spondylosis: Code(s): M47.816 - Spondylosis without myelopathy or radiculopathy, lumbar region Category: Medical (3) Myofascial low back pain: Code(s): M54.50 - Low back pain, unspecified Category: Medical Plan The plan includes initiating Lyrica to assess its efficacy in managing the patient's chronic pain, given the cessation of gabapentin and the lack of relief from current medications. Additionally, the patient is advised to consider radiofrequency ablation for her back pain, as it previously provided significant relief through test injections. The patient is also encouraged to follow up in one month to evaluate the effectiveness of Lyrica and discuss further management options, including potential procedures. Patient was informed and verbally consented to the use of an ambient scribe for clinic note documentation during this visit. Medications: New pregabalin discontinue Gabapentin prior to starting this medication. May cause drowsiness. 200 mg PO BID 60 caps 3RF Discontinued gabapentin Discontinued Reason: Patient no longer taking 1,200 mg (2 x 600 mg) PO TID 90 days 540 tabs 1RF NS E11.40 - Type 2 diabetes mellitus with diabetic neuropathy, unspecified, M79.7 - Fibromyalgia Patient Instructions: - Start taking Lyrica as prescribed. - Consider radiofrequency ablation for back pain management. - Follow up in one month to evaluate treatment effectiveness and discuss further options. Coding Level of Care Code Est Pt Level 3 (98759) Complex EM visit Add On G2211 Diagnoses Osteoarthritis of lumbar spine M47.816 Lumbar spondylosis M47.816 Myofascial low back pain M54.50
[2024-12-20 13:02] VITALS: BP 169/85; PULSE 98; RESP 16; O2SAT 99; BMI 37.2
== END 2024-12-20 13:24 | disposition home or self-care (01) ==
LOC: HO.PMC 12:45
PROVIDERS: PCP Internal Medicine; Visit Provider Registered Nurse Emergency
DX: M47.816 Spondylosis without myelopathy or radiculopathy, lumbar region (principal); M54.50 Low back pain, unspecified
CPT/HCPCS: 99213; G2211

== ENCOUNTER 2025-01-15 12:51 | Outpatient (AMB) | payer OTHER, SELFPAY ==
--- OUTSIDE RECORDS SUMMARY | 2025-01-15 09:15 | XMS_ITS | Encounter Summary ---
Author Organization [employer] Address [address] [place] [address] Care Team Providers Care Frame Coverer Name Role Phone Jody Roland MD Primary Care Provider [phone] Reason for Visit * Reason Comments Diabetes Mellitus Encounter Details Date Type Department Care Team (Late st Contact Info) Description 01/15/2025 9:15 AM EST Office Visit Endocrinology - [address] [address] Trish Hyatt PA [address] [place] [address] Type 2 diabetes mellitus with diabetic microalbuminuria, with long-term current use of insulin (CMS/HCC V24, CMS/HCC V28) (Primary Dx); Essential hypertension, benign; Microalbuminuria Social History Tobacco Use Types Packs/Day Years [...] care for your loved ones. For example, children's attendant or elderly care for an older [...] PM EST documented as of this encounter Last Filed Vital Signs Vital Sign Reading Time Taken Comments Blood Pressure 102/73 01/15/2025 9:15 AM EST Pulse 92 01/15/2025 9:15 AM EST Temperature 36 C (96.8 F) 01/15/2025 9:15 AM EST Respiratory Rate - - Oxygen Saturation - - Inhaled Oxygen Concentration - - Weight 119 kg (262 lb 12.8 oz) 01/15/2025 9:15 A M EST Height 167.6 cm (5' 6 ) 01/15/2025 9:15 AM EST Body Mass Index 42.42 01/15/2025 9:15 AM EST documented in this encounter Ordered Prescriptions Prescription Sig Dispense Quantity Refills Last Filled Start Date End Date pen needle, diabetic (BD Ultra-Fine Short Pen Needle) 31 gauge x 5/16 needleIndications: Type 2 diabetes mellitus with diabetic microalbuminuria, with long-term current use of insulin (CMS/HCC V24, CMS/HCC V28) Use to inject 4 times daily as directedUse to inject 4 times daily as directed 400 each 11 01/15/2025 documented in this encounter Progress Notes * Gay Conrad MA - 01/15/2025 9:15 AM EST Visit Vitals BP 102/73 (BP Location: Left arm, Patient Position: Sitting, BP Cuff Size: Large adult) Pulse 92 Temp 36 ??C (96.8 ??F) (Temporal) Ht 1.676 m (66 ) Wt 119 kg (262 lb 12.8 oz) BMI 42.42 kg/m?? OB Status Postmenopausal Smoking Status Every Day BSA 2.24 m?? If blood pressure is greater than 140/90 was average BP completed? N/A Medication list reviewed and refills pended: Yes Blood sugar: CGM Readin. Is sugar <70 or > 400? No.. Is patient on CGM? Yes; CGM data downloaded yes..If yes, please update blue sticky note with DME orpharmacy information. Are labs up to date? no Foot Exam Due: no Eye Exam Due: scheduled and pending per patient * ONEIL Quiros - 01/15/2025 9:15 AM EST Images from the original note were not included. CHIEF COMPLAINT: Diabetes Mellitus IDENTIFIER: Galina Doyle is a 59 y.o. old female. HPI: Patient presents for a diabetes follow up. Patient with diabetes for the last year. Past medical history of type 2 diabetes, vitamin D deficiency, morbid obesity, microalbuminuria, hypertension, GERD, depression and carpal tunnel. Type 2 diabetes: Hemoglobin A1c: Lab Results Component Value Date HGBA1C 5.1 09/19/2024 HGBA1C 5.1 08/30/2024 Patient A1c remain at goal. She is due for blood work CGM data above still demonstrate some hypoglycemic readings Blood sugar in the office 126 We have titrated her Lantus from 55 units to 10 units still occasional hypoglycemic readings NovoLog sliding scale metformin at 1000 mg twice a day metformin 1000 mg twice a day Last visit we had to stop Farxiga due to frequent yeast infections She has history of pancreatitis and I told her that that is a contraindication. Diabetes complicated by renal manifestations: Chronic kidney disease stage III Due for microalbuminuria this had been ordered already Diabetes complicated by neurological manifestations: History of carpal tunnel and diabetic polyneuropathy Her cholesterol labs were normal Up-to-date on eye exam. Due for foot exam Hypertension: Blood pressure normal 102/73 On lisinopril 20 mg, amlodipine 5 mg, hydrochlorothiazide 50 mg Patient does appear to be in pain. When I asked her about it she shows me her neck. Since she has some type of cyst or abscess around the back of her neck. She wants me to give her some antibiotics. I discussed that this is better evaluated by primary care, she agrees, she is going to go after her visit to her primary care office. If they cannot see her they do have urgent care right in that office. Wt Readings from Last 3 Encounters: 01/15/25 119 kg (262 lb 12.8 oz) 12/03/24 116 kg (255 lb) 11/26/24 114 kg (252 lb) ROS: GENERAL: No malaise, significant weight loss or fever HEENT: No changes in hearing or vision, nose bleeds or other nasal problems RESPIRATORY: No cough, wheezing or shortness of breath CARDIOVASCULAR: No chest pain, leg swelling or palpitations GI: No abdominal discomfort, blood in stools or black stools ENDOCRINE: See HPI MUSCULOSKELETAL: No joint pain or swelling, back pain, or muscle pain. NEURO: No persistent headache, syncope, seizures, weakness or numbness PAST MEDICAL HISTORY: Patient Active Problem List Diagnosis Date Noted Transient neurological symptoms 08/30/2024 Morbid obesity ([facility] [place] [facility] [place]) 06/26/2024 CKD (chronic kidney disease) stage 2, GFR 60-89 ml/min 12/12/2023 Essential hypertension, benign 11/08/2023 Class 2 obesity due to excess calories with body mass index (BMI) of 36.0 to 36.9 in adult 11/08/2023 Discoid lupus 11/08/2023 Esophageal reflux 11/08/2023 Systemic lupus erythematosus ([facility] [place], [facility] [place]) 11/08/2023 Depression, major 11/08/2023 Fibromyalgia 11/08/2023 Carpal tunnel syndrome, bilateral 11/08/2023 Type 2 diabetes mellitus, with long-term current use of insulin ([facility], [facility]) 11/08/2023 Adrenal adenoma, left 11/08/2023 Type 2 diabetes mellitus with microalbuminuria, with long-term current use of insulin ([facility]) 11/08/2023 Microalbuminuria 11/08/2023 Lupus anticoagulant positive 11/08/2023 Vitamin D deficiency 11/08/2023 Diabetic polyneuropathy associated with type 2 diabetes mellitus ([facility], [facility]) 11/08/2023 Other chronic pain 11/08/2023 Pancreatitis 11/08/2023 Primary osteoarthritis of right knee 11/08/2023 SOCIAL HISTORY: Social History Tobacco Use Smoking status: Every Day Current packs/day: 0.50 Types: Cigarettes Smokeless tobacco: Never Substance Use Topics Alcohol use: No FAMILY HISTORY: Family Status Relation Name Status Mother Father Brother Alive 2,healthy MGM Aunt m aunt Neg Hx (Not Specified) MGF PGM PGF No partnership data on file Family History Problem Relation Name Age of [...] Neg Hx Strabismus Neg Hx ACTIVE MEDICATIONS: Outpatient Medications Marked as Taking for the 01/15/25 encounter (Office Visit) with ONEIL Quiros Medication Sig Dispense Refill amLODIPine (NORVASC) 2.5 mg tablet Take 1 Tablet by mouth daily. With the 5 mg daily for a total of7.5 mg - Oral 90 tablet 1 amLODIPine (NORVASC) 5 mg tablet Take 1 Tablet by mouth daily. With the 2.5 mg daily for a total of7.5 mg - Oral 90 tablet 1 ammonium lactate (AmLactin) 12 % lotion Apply topically if needed for dry skin. 400 g 11 atorvastatin (LIPITOR) 10 mg tablet TAKE 1 TABLET BY MOUTH 1 TIME EACH DAY. 90 tablet 1 blood sugar diagnostic (PicreelTouch Verio test strips) test strip Use to check BS 3 times a day 100 each 12 blood-glucose meter (PicreelTouch Verio Flex meter) misc Use to check BS 3 times a day 1 each 0 blood-glucose sensor (DEXCOM G6 SENSOR MISC) 1 sensor every 10 days blood-glucose transmitter (Dexcom G6 Transmitter) device Change transmitter every 3 months 3 each 3 buPROPion XL (WELLBUTRIN XL) 150 mg 24 hr tablet Take 1 tablet (150 mg total) by mouth 1 (one) timeeach day in the morning. 90 tablet 3 cholecalciferol (VITAMIN D-3) 50 mcg (2,000 unit) tablet TAKE 1 TABLET BY MOUTH EVERY DAY 90 tablet0 cloNIDine (CATAPRES) 0.2 mg tablet Take 1 tablet (0.2 mg total) by mouth 2 (two) times a day if needed (ANXIETY). Take 1 Tablet by mouth 2 times daily as needed for Other (Panic attacks). - Oral glucagon 1 mg/0.2 mL auto-injector Inject 1 mg under the skin 1 (one) time if needed (severe hypoglycemcia) for up to 1 dose. Inject 1 Device into the skin as needed for Other (low blood sugar). - SubcutaneousInject 1 Device into the skin as needed for Other (low blood sugar). - Subcutaneous 1 each1 hydroCHLOROthiazide (HYDRODIURIL) 50 mg tablet TAKE 1 TABLET BY MOUTH 1 TIME EACH DAY. 90 tablet 1 hydroxychloroquine (PLAQUENIL) 200 mg tablet Take 1 tablet (200 mg total) by mouth 2 (two) times a day. Take 1 Tab by mouth 2 times daily. - Oral insulin glargine (LANTUS SoloStar) 100 unit/mL (3 mL) injection pen Inject 10 Units under the skin at bedtime. 15 mL 11 lancets lancets Check blood sugar 3 times a day or as directed. Onetouch delica 1 each 11 lidocaine (LIDODERM) 5 % patch Apply topically 1 (one) time each day. Place 1 Patch onto the skin every 24 hours. Apply for no more than 12 hours in any 24 hour period. - Transdermal 90 patch 11 lisinopriL (PRINIVIL,ZESTRIL) 20 mg tablet TAKE 1 TABLET (20 MG TOTAL) BY MOUTH ONE TIME EACH DAY 90 tablet 1 metFORMIN (GLUCOPHAGE) 1,000 mg tablet TAKE 1 TABLET BY MOUTH TWICE A DAY WITH FOOD 168 tablet 2 mirtazapine (REMERON) 30 mg tablet Take 1 tablet (30 mg total) by mouth at bedtime. naproxen (NAPROSYN) 500 mg tablet Take 1 tablet (500 mg total) by mouth 2 (two) times a day if needed for mild pain. 90 tablet 1 nystatin (MYCOSTATIN) 100,000 unit/gram powder APPLY TO AREA OF CONCERN 2-3 TIMES PER DAY WHENEVER RASH IS PRESENT. 15 g 3 oxyCODONE (ROXICODONE) 10 mg immediate release tablet Take 0.5 tablets (5 mg total) by mouth every 8 (eight) hours if needed for severe pain for up to 28 days. Max Daily Amount: 15 mg 42 tablet 0 pen needle, diabetic (BD Ultra-Fine Short Pen Needle) 31 gauge x 5/16 needle Use to inject 4 timesdaily as directedUse to inject 4 times daily as directed 400 each 11 QUEtiapine (SEROquel) 100 mg tablet Take 1.5 tablets (150 mg total) by mouth at bedtime. triamcinolone (KENALOG) 0.1 % ointment APPLY TO AFFECTED AREA 2 TIMES DAILY FOR UP TO TWO WEEKS UNKNOWN TO PATIENT Incontinence Supply Disposable (Poise Ultimate Absorbency) Pads-1 Each by Does not apply route every 2 hours as needed (incontinence). - Does not apply [DISCONTINUED] insulin aspart (NovoLOG) 100 UNIT/ML patient supplied pump Inject 2-10 Units into the skin 3 times daily (before meals). Inject three times a day with meals per scale IB BS 100-150: 7 units; 151-200: 8 unit; 201-250: 9 units; 251-300: 10 units; 301-350: 11 units; 351-400: 12 units - Subcutaneous, Plus 2 units for a high carb meals [DISCONTINUED] pen needle, diabetic (BD Ultra-Fine Short Pen Needle) 31 gauge x 5/16 needle Use toinject 4 times daily as directed 100 each 11 ALLERGIES: Tramadol, Trazodone, and Tylenol [acetaminophen] PHYSICAL EXAM: Blood pressure 102/73, pulse 92, temperature 36 ??C (96.8 ??F), temperature source Temporal, height1.676 m (66 ), weight 119 kg (262 lb 12.8 oz). Body mass index is 42.42 kg/m??. BMI is greater than25.0 (above the normal range) - see Plan APPEARANCE: Alert and in no acute distress NEURO: AAOx3. LABS: Lab Results Component Value Date HGBA1C 5.1 09/19/2024 CHOL 137 09/19/2024 HDL 52 09/19/2024 TRIG 106 09/19/2024 Lab Results Component Value Date GLUCOSE 80 09/19/2024 Lab Results Component Value Date TSH 1.48 09/19/2024 IMAGING: IMPRESSION: 1. Type 2 diabetes mellitus with diabetic microalbuminuria, with long-term current use of insulin ([facility] V24, [facility] V28) 2. Essential hypertension, benign 3. Microalbuminuria PLAN: Patient presents to the office for follow-up on diabetes. 1. Diabetes: A1c below the goal. She is due for lab work CGM data reviewed Still having some hypoglycemic readings She is going to stop NovoLog completely Only continue with 10 units of Lantus and metformin If hypoglycemic readings continue reach out to us to discontinue insulin further continue with lifestyle modifications follow-up in 6 months 2. Hypertension: Blood pressure at goal 3. Microalbuminuria: Labs were ordered last visit Myself and my colleagues maintained a long-term, longitudinal relationship with this patient, overseeing care of chronic conditions including diabetes, and hypertension. This care relationship has significantly influence my decision making and treatment plans during today's encounter. All questions and concerns were addressed. Patient understands and agrees with this treatment plan.Patient was reminded to call or return to the office if any new or existing problems arise This document was made using voice recognition software. It may contain some errors in grammar or syntax Medication and lab orders: Type 2 diabetes mellitus with diabetic microalbuminuria, with long-term current use of insulin ([facility] V24, [facility] V28) (Primary) - pen needle, diabetic (BD Ultra-Fine Short Pen Needle) 31 gauge x 5/16 needle; Use to inject 4 times daily as directedUse to inject 4 times daily as directed Dispense: 400 each; Refill: 11 Essential hypertension, benign Microalbuminuria ONEIL Quiros on 01/15/2025 at 9:45 AM EST documented in this encounter Plan of Treatment Upcoming Encounters Date Type Department Care Team (Late st Contact Info) Description 03/18/2025 2:00 PM EST Office Visit [facility]phrology - [facility] [address] [place] [phone] Wagner Herrera MD [address] [place] [address] documented as of this encounter Visit Diagnoses Diagnosis Type 2 diabetes mellitus with diabetic microalbuminuria, with long-term current use of insulin ([facility] V24, [facility] V28)- Primary Essential hypertension, benign Microalbuminuria Proteinuria documented in this encounter Discontinued Medications Medication Sig Discontinue Reason Start Date End Da te pen needle, diabetic (BD Ultra-Fine Short Pen Needle) 31 gauge x 5/16 needle Use to inject 4 times daily as directed Reorder 12/26/2024 01/15/2025 insulin aspart (NovoLOG) 100 UNIT/ML patient supplied pump Inject 2-10 Units into the skin 3 times daily (before meals). Inject three times a day with meals per scale IB BS 100-150: 7 units; 151-200: 8 unit; 201-250: 9 units; 251-300: 10 units; 301-350: 11 units; 351-400: 12 units - Subcutaneous, Plus 2 units for a high carb meals Formulary change 01/15/2025 documented as of this encounter Additional Health Concerns Assessment Noted Time PHQ-9 Depression Total Score: 9 08/08/20 25 11:07 AM EDT documented as of this encounter Care Teams Frame Coverer Relationship Specialty Start Date End Date Jody Roland MD [address] [place] [id number] PCP - General Internal Medicine 10/25/24 documented as of this encounter
--- OUTSIDE RECORDS SUMMARY | 2025-01-15 11:00 | XMS_ITS | Encounter Summary ---
Author Organization [employer] Address [address] [place] [address] Care Team Providers Care Alternative Dispute Resolution Mediator Name Role Phone Jody Roland MD Primary Care Provider [phone] Reason for Visit * Reason Comments Mass On neck back side no ticed x 3 days ago warm to touch painful, hx of of cyst in tooth. Encounter Details Date Type Department Care Team (Late st Contact Info) Description 01/15/2025 11:00 AM EST Office Visit [facility] - [facility] [address] [place], [place] [phone] Gracie Guerra NP [address] [place], [place] Abscess (Primary Dx) Social History Tobacco Use Types [...] for your loved ones. For example, children's institution attendant or elderly care for an older [...] Sign Reading Time Taken Comments Blood Pressure 102/60 01/15/2025 10:52 AM EST Pulse 94 01/15/2025 10:52 AM EST Temperature 36.7 C (98 F) 01/15/2025 10:52 AM EST Respiratory Rate - - Oxygen Saturation 98% 01/15/2025 10:52 AM EST Inhaled Oxygen Concentration - - Weight - - Height - - Body Mass Index - - documented in this encounter Ordered Prescriptions Prescription Sig Dispense Quantity Refills Last Filled Start Date End Date doxycycline (VIBRAMYCIN) 100 mg capsule Take 1 capsule (100 mg total) by mouth 2 (two) times a day for 10 days. Take with at least 8 ounces (large glass) of water, do not lie down for 30 minutes after. Administer 2 hours before or after multivitamins, antacids, or other products containing polyvalent cations (i.e., calcium, iron, magnesium, selenium, zinc). 20 each 01/15/2025 documented in this encounter Progress Notes * Gracie Guerra, OTILIO - 01/15/2025 11:00 AM EST CHIEF COMPLAINT: Mass (On neck back side noticed x 3 days ago warm to touch painful, hx of of cyst in tooth. ) HPI: Galina Doyle is a 59 y.o. old female who presents with painful raised firm nodule base of the spine. Patient denies any upper respiratory infection signs and symptoms no cough sore throat headache fever chills nausea vomiting or diarrhea ROS: Remainder of the 12 point review of symptoms unremarkable except for those idenitified in the HPI. PAST MEDICAL HISTORY: Patient Active Problem List Diagnosis Date Noted Transient neurological symptoms 08/30/2024 Morbid obesity ([facility] V24, [facility] V28) 06/26/2024 CKD (chronic kidney disease) stage 2, GFR 60-89 ml/min 12/12/2023 Essential hypertension, benign 11/08/2023 Class 2 obesity due to excess calories with body mass index (BMI) of 36.0 to 36.9 in adult 11/08/2023 Discoid lupus 11/08/2023 Esophageal reflux 11/08/2023 Systemic lupus erythematosus ([facility] V24, [facility] V28) 11/08/2023 Depression, major 11/08/2023 Fibromyalgia 11/08/2023 Carpal tunnel syndrome, bilateral 11/08/2023 Type 2 diabetes mellitus, with long-term current use of insulin ([facility], [facility] V28) 11/08/2023 Adrenal adenoma, left 11/08/2023 Type 2 diabetes mellitus with microalbuminuria, with long-term current use of insulin ([facility]24,[facility] V28) 11/08/2023 Microalbuminuria 11/08/2023 Lupus anticoagulant positive 11/08/2023 Vitamin D deficiency 11/08/2023 Diabetic polyneuropathy associated with type 2 diabetes mellitus ([facility]24, [facility] V28) 11/08/2023 Other chronic pain 11/08/2023 Pancreatitis 11/08/2023 Primary osteoarthritis of right knee 11/08/2023 Surgical History[1] SOCIAL HISTORY: Social History Tobacco Use Smoking status: Every Day Current packs/day: 0.50 Types: Cigarettes Smokeless tobacco: Never Substance Use Topics Alcohol use: No FAMILY HISTORY: Family History[2] Family Status Relation Name Status Mother Father Brother Alive 2,healthy MGM Aunt m aunt Neg Hx (Not Specified) MGF PGM PGF No partnership data on file MEDICATIONS DISCONTINUED/REORDERED: There are no discontinued medications. ACTIVE MEDICATIONS: Medications Taking[3] ALLERGIES: Allergies[4] PHYSICAL EXAM: Vitals: 01/15/25 1052 BP: 102/60 Pulse: 94 Temp: 36.7 ??C (98 ??F) SpO2: 98% CONSTITUTIONAL: alert, calm, cooperative, in no acute distress HEAD: normocephalic, atraumatic EYES: pupils equal, round, reactive to direct and consensual light, accommodation reflex present, extraocular movement intact (EOMI), sclera non-icteric EARS: auditory canal clear, tympanic membrane intact and clear with anterior light reflex, no air-fluid levels bilaterally NOSE: septum intact, no lesions, no discharge ORAL CAVITY: mucosa moist, gums normal, palate normal, tongue midline THROAT: no erythema, no exudate, pharynx normal, tonsils normal, uvula midline NECK/THYROID: neck range of motion grossly intact LYMPH: no cervical or supraclavicular lymphadenopathy SKIN: warm and dry positive palpable easily movable raised nodule posterior neck base of the spine no redness no significant heat HEART: S1, S2 normal, regular rate and rhythm, no murmurs, rubs, gallops LUNGS: clear to auscultation bilaterally, no wheezes, rales, rhonchi PSYCH: mood/affect full range, speech clear, good eye contact, cooperative with exam LABS/IMAGING: IMPRESSION: Cyst versus abscess PLAN: The patient's PMH, problem list and medications were reviewed in reference to the above diagnosis/diagnoses. Will treat with antibiotics doxycycline sent to pharmacy patient encouraged to add hot compresses to affected area 4-5 times daily x 1 week if symptoms persist will obtain upper ultrasound and refer to surgeon Advised to follow up with PCP if symptoms do not improve. Advised to follow up with UC or PCP immediately for new or worsening symptoms. Educated on red flags symptoms. Advised to go to the ER or call 911 for these symptoms. Patient understands the plan. Patient verbalizes agreement with the plan. No orders of the defined types were placed in this encounter. Gracie Guerra NP on 01/15/2025 at 11:00 AM EST Today's documentation was made using voice recognition software. This note may contain grammatical errors secondary to this software. [1] Past Surgical History: Procedure Laterality Date SECTION PROCEDURE: ID DELIVERY ONLY; COMMENT: [id number] CHOLECYSTECTOMY 1998 PROCEDURE: LAPAROSCOPY, CHOLECYSTECTOMY CHOLECYSTECTOMY PROCEDURE: ID LAPAROSCOPY SURG CHOLECYSTECTOMY TUBAL LIGATION PROCEDURE: HISTORICAL TUBAL LIGATION [2] Family History Problem Relation Name Age of [...] Macular degeneration Neg Hx Strabismus Neg Hx [3] Outpatient Medications Marked as Taking for the 01/15/25 encounter (Office Visit) with Gracie Guerra NP Medication Sig Dispense Refill amLODIPine (NORVASC) 2.5 [...] DAY. 90 tablet 1 blood sugar diagnostic (CellartisTouch Verio test strips) test strip Use to check BS 3 times a day 100 each 12 blood-glucose meter (OneTouch Verio Flex meter) misc [...] Daily Amount: 15 mg 42 tablet 0 QUEtiapine (SEROquel) 100 mg tablet Take 1.5 tablets (150 mg total) by mouth at bedtime. triamcinolone (KENALOG) 0.1 % ointment APPLY TO AFFECTED AREA 2 TIMES DAILY FOR UP TO TWO WEEKS UNKNOWN TO PATIENT Incontinence Supply Disposable (Poise Ultimate Absorbency) Pads-1 Each by Does not apply route every 2 hours as needed (incontinence). - Does not apply [4] Allergies Allergen Reactions Tramadol Rash Trazodone Rash Tylenol [Acetaminophen] Headache Per pt documented in this encounter Plan of Treatment Upcoming Encounters Date Type Department Care Team (Late st Contact Info) Description 03/18/2025 2:00 PM EST Office Visit Nephrology - [facility] [address] [place] [phone] Wagner Herrera MD [address] [place] [phone] documented as of this encounter Visit Diagnoses Diagnosis Abscess- Primary Cellulitis and abscess of unspecified site documented in this encounter Additional Health Concerns Assessment Noted Time PHQ-9 Depression Total Score: 9 09/14/19 25 11:07 AM EDT documented as of this encounter Care Teams Alternative Dispute Resolution Mediator Relationship Specialty Start Date End Date Jody Roland MD [address] [place] [address] PCP - General Internal Medicine 10/25/24 documented as of this encounter
--- NOTE | 2025-01-15 12:57 | A.OFFVIS_ITS ---
Vital Signs 01/15/25 13:16 Height 5 ft 9 in Weight 264 lb 5.348 oz BMI 39.0 BP 122/70 Blood Pressure Location Lt brachial Position Sitting Pulse 104 H Pulse Source Pulse Oximeter Pulse Oximetry (%) 98 Oxygen Delivery Method Room Air Intake Visit Reasons: 4months Intake Note: Patient presents for Lupus follow up and test results. Rate Setter Required: No Information Interpreted: non-clinical & clinical Accompanied by: Self / Same As Patient Allergies tramadol Allergy (Severe, Verified 01/15/25 13:15) severe rash trazodone Adverse Reaction (Severe, Verified 01/15/25 13:15) hives Medication List - Last Reviewed 01/15/25 by SUSAN Navarro acetaminophen 650 mg (2 x 325 mg) PO Q6H PRN 30 days amlodipine 2.5 mg PO QAM aspirin 81 mg PO DAILY bupropion HCl XL 150 mg PO QAM cholecalciferol (vitamin D3) 50 mcg PO QAM clonidine HCl 0.2 mg PO BID PRN diclofenac sodium 1% 4 grams topical QID hydrochlorothiazide 50 mg PO QAM hydroxychloroquine 300 mg PO DAILY 90 days ibuprofen 600 mg PO TID PRN insulin aspart U-100 2 - 8 units subcut TIDAC insulin glargine (Lantus Solostar U-100 Insulin) 65 units subcut BEDTIME lisinopril 20 mg PO QAM metformin 1,000 mg PO BID mirtazapine 30 mg PO BEDTIME prednisone 20mg orally for 7 days; 15 mg orally for 7 days; 10mg orally for 7 days; 5mg orally for 7 days pregabalin 200 mg PO BID quetiapine 50 mg PO BEDTIME triamcinolone acetonide 0.1% 1 appl topical BID HPI Comments Details: Patient is a 59-year-old female with hypertension, diabetes, polyarticular osteoarthritis status post right knee replacement, and systemic lupus erythematosus here today for follow up Interval History: Patient last seen 09/19/24 with me - On Hydroxychloroquine 200mg bid and Saphnelo IV 300mg every 4 weeks - Doing much better on saphnelo: improvement in rash and joint pain Today - On Hydroxychloroquine 200mg bid and Saphnelo IV 300mg every 4 weeks - presenting for a follow-up visit for lupus and osteoarthritis, and evaluation of a new posterior neck mass. - Regarding her lupus, she was started on Saphnelo for a rash and joint pain, and at her last visit in September, both her rash and joint pain were noted to be improving. - She tolerates the infusions well and denies any reactions. - The patient presents with a new complaint of a painful mass on the back of her neck that started as a small lesion three days ago. - She reports the mass has been increasing in size and becoming harder each day, causing significant pain that has prevented her from sleeping for the past two days. - She has also experienced associated headaches since the mass appeared. - She saw her primary care provider and returned telephone equipment appraiser for the neck mass, but both were uncertain of the diagnosis and did not perform any tests or imaging. - The patient expresses significant frustration, feeling that her concerns are often unheard or dismissed by other providers. - The patient is on a medication regimen that includes amlodipine, aspirin, bupropion, clonidine, hydrochlorothiazide, Plaquenil, insulin, lisinopril, metformin, Lyrica, and quetiapine, with no recent changes reported. Rheumatologic History: DISCOID LESIONS, SUB-ACUTE SKIN LESIONS 2009 ARTHRALGIAS, MILD PROTEINURIA - resolved; kidney bx 10/2019 - class II nephritis(sees Dr. 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 Saphnelo IV 300mg every 4 weeks PFS Medical History (Updated 12/18/24 @ 11:49 by Monalisa Quiroz MD) TIA (transient ischemic attack) Lupus Osteoarthritis of right knee Arthritis Chronic renal insufficiency Glaucoma Pulmonary embolism GERD (gastroesophageal reflux disease) Diabetes Lupus anticoagulant disorder HTN (hypertension) Depression Osteoarthritis Lumbar spondylosis Lower back pain Smoker Bilateral knee swelling Hypertension Surgical History Status post right knee replacement History of esophagogastroduodenoscopy (EGD) H/O colonoscopy Hx of excision of mass Hx laparoscopic cholecystectomy Hx of tubal ligation Hx of section Family History Brother Diabetes Mother Hypertension Breast cancer, Onset Age: 49 Father Hypertension Maternal Grandmother Breast cancer Maternal Aunt Breast cancer, Onset Age: 53 Social History Household Members: Family and Children Household Members Other:: children Housing: House Are you a primary continuum of care manager to a significant other at home: No Do you presently have visiting nurse or other home services: Yes (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 - Integumentary: Reports a new, painful, enlarging, and hardening mass on the po sterior neck for 3 days. - Neurological: Reports headaches since the onset of the neck mass. - Mouth/Nose: Denies oral or nasal ulcers. All other systems reviewed and are unremarkable except noted above Physical Exam Exam Exam: Vital signs reviewed Physical Examination CONSTITUITIONAL Patient alert and cooperative. Well appearing and in no apparent painful distress HEENT Conjunctiva and sclera clear. No lymphadenopathy. Mass on the posterior neck, which is reportedly enlarging, hardening, and painful. MSK Hands * Right Hand: Able to make a fist. No swelling or tenderness to palpation of the MCPs, PIPs or DIPs. No deformities noted. * Left Hand: Able to make a fist. No swelling or tenderness to palpation of the MCPs, PIPs or DIPs. No deformities noted. Wrists * Right Wrist: Full ROM to flexion and extension. No swelling or TTP * Left Wrist: Full ROM to flexion and extension. No swelling or TTP Elbows * Right Elbow: Full ROM. No swelling or TTP. No TTP of the medial epicondyle. No TTP of the lateral epicondyle * Left Elbow: Full ROM. No swelling or TTP. No TTP of the medial epicondyle. No TTP of the lateral epicondyle Shoulders * Right shoulder: Full ROM. No swelling noted. No TTP of the AC joint. No TTP of the subacromial bursa. No TTP of the posterior shoulder * Left shoulder: Full ROM. No swelling noted. No TTP of the AC joint. No TTP of the subacromial bursa. No TTP of the posterior shoulder Knees * Right knee: Full ROM. No swelling noted. TTP of the knee joint line. No TTP of pes anserine bursa * Left knee: Good ROM (replacement). No swelling noted. No TTP of the knee joint line. No TTP of pes anserine bursa. Ankles * Right ankle: Good ankle dorsiflexion and plantar flexion. No swelling. No TTP of the ankle joint * Left ankle: Good ankle dorsiflexion and plantar flexion. No swelling. No TTP of the ankle joint Feet * Right foot: Negative squeeze test * Left foot: Negative squeeze test Tender points? * No tenderness to palpation of the bilateral trapezius, supraspinatus, anterior costochondral junctions, bilateral suboccipital muscle insertions SKIN No rashes Results Reviewed Results Reviewed: Laboratory Tests 05/17/24 11/13/24 10:43 11:14 WBC 5.6 5.7 RBC 4.18 L Hgb 12.3 Hct 37.5 Plt Count 255 ESR 69 H 36 H Sodium 143 Potassium 3.6 Chloride 110 H Carbon Dioxide 28 BUN 12 Creatinine 0.83 AST 18 ALT 10 C-Reactive Protein 2.27 H 0.67 H 25-OH Vitamin D Total 35 Assessment & Plan Assessment & Plan (1) Lupus: Comment: DISCOID LESIONS, SUB-ACUTE SKIN LESIONS 2009 ARTHRALGIAS, MILD PROTEINURIA - resolved; kidney bx 10/2019 - class II nephritis(sees Dr. 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 History of proteinuria that resolved. Symptoms have improved on saphnelo Plan - Continue Anifrolumab infusions 300mg every 4 weeks - Continue plaquenil 300mg bid - Labs today: Labs before visit: CBC, CMP, ESR, CRP, C3, C4, dsDNA, UA, UPC - RTC 4 months - Labs before visit: CBC, CMP, ESR, CRP, C3, C4, dsDNA, UA, UPC (2) Palpable mass of neck: Code(s): R22.1 - Localized swelling, mass and lump, neck Plan: #Posterior neck mass The patient presents with a new, painful, hardening, and enlarging mass on the posterior neck that began 3 days ago, accompanied by headaches. Given the uncertain etiology and the patient's significant pain, a diagnostic workup will be initiated. An urgent CT scan of the cervical spine will be ordered, with consideration for a follow-up MRI if needed. New blood work will be drawn today to assess for any acute abnormalities. For symptom management, a tapering course of prednisone will be prescribed, starting at 20 mg daily for 7 days, followed by 15 mg for 7 days, 10 mg for 7 days, and 5 mg for 7 days before discontinuation. Plan - Urgent CT Scan C spine - Prednisone Take 20mg for 7 days then 15mg for 7 days then 10mg for 7 days then 5mg for 7 days then stop (3) Long-term use of hydroxychloroquine: Comment: eye exam OK 01/14; 07/17, 05/19, 06/21, 09/24, 12/26. 06/27, 06/28 Code(s): Z79.899 - Other [facility] (current) drug therapy Category: Medical Plan: #Long-term Use of Hydroxychloroquine Discussed with patient the risks and benefits of hydroxychloroquine in managing the rheumatic condition Benefits include: - Reduced pain, reduce mortality, maintenance of remission and reduction of flares Risks include: - GI upset, skin hyperpigmentation, retinal toxicity (especially after more than 5 years of use), myopathy Advised yearly ophthalmology visits Last ophthalmology visit: 01/2024 (4) alf (current) use of immunosuppressive biologic: Code(s): Z79.620 - alf (current) use of immunosuppressive biologic Plan: #Long-term use Anifrolumab Discussed with patient the risks and benefits of hydroxychloroquine in managing the rheumatic condition Benefits include: - Reduced pain, reduce mortality, maintenance of remission and reduction of flares Risks include: - Increased susceptibility to serious infections particularly viral infections like herpes zoster (shingles), respiratory tract infections and infusion related reactions Plan I had a detailed discussion with the patient regarding the new, painful mass on her neck. I acknowledged her frustration with previous providers and assured her that I would help investigate the issue. I explained the plan to start with an urgent CT scan of her cervical spine to evaluate the mass, with the possibility of a subsequent MRI. I also prescribed a tapering course of prednisone to help with the pain and inflammation, and explained the dosing schedule: 20 mg for a week, 15 mg for a week, 10 mg for a week, and 5 mg for a week. We discussed that new blood work will be done today to check for any acute inflammatory processes. We confirmed her lupus is well-controlled, and she will continue her Saphnelo infusions. I recommended she follow up with me in four months. I spent 30 minutes reviewing the record and labs, taking a history, examining the patient, discussing the treatment plan, ordering diagnostic work up and documenting in the medical record Orders: Orders CT cervical spine wo IV con Today R22.1 - Localized swelling, mass and lump, neck Complete Blood Count Auto Diff 4 Months M32.9 - Systemic lupus erythematosus, unspecified Complement C3 4 Months M32.9 - Systemic lupus erythematosus, unspecified Anti DNA DS Antibody 4 Months M32.9 - Systemic lupus erythematosus, unspecified Comprehensive Met. Panel 4 Months M32.9 - Systemic lupus erythematosus, unspecified Erythrocyte Sedimentation Rate 4 Months M32.9 - Systemic lupus erythematosus, unspecified Protein Creatinine Ratio, Ur 4 Months M32.9 - Systemic lupus erythematosus, unspecified Complement C4 4 Months M32.9 - Systemic lupus erythematosus, unspecified UA ClnCatch+Micro w/rflx Cult 4 Months M32.9 - Systemic lupus erythematosus, unspecified C Reactive Protein 4 Months M32.9 - Systemic lupus erythematosus, unspecified Medications: New prednisone 20mg orally for 7 days; 15 mg orally for 7 days; 10mg orally for 7 days; 5mg orally for 7 days 70 tabs 0RF M32.9 - Systemic lupus erythematosus, unspecified Coding Level of Care Code Est Pt Level 4 (18644) Add On Problem Visit Only Diagnoses Lupus M32.9 Palpable mass of neck R22.1 Long-term use of hydroxychloroquine Z79.899 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
[2025-01-15 13:16] VITALS: BP 122/70; PULSE 104; O2SAT 98; BMI 39.0
--- OUTSIDE RECORDS SUMMARY | 2025-01-15 19:44 | XMS_ITS | Encounter Summary ---
Author Organization [place] [address] Care Team Providers Care Qa Test Lead Name Role Phone Jody Roland MD Primary Care Provider [phone] Reason for Visit * Reason Onset Date Comments Referral 10/03/2024 External Encounter Details Date Type Department Care Team (Late st Contact Info) Description 10/03/2024 Telephone Internal Medicine - [facility] [address] [place] [id number] Darrel Tony MD [address] [address] Social History Tobacco Use Types Packs/Day Years [...] for your loved ones. For example, child health associate or elderly care for an older adult? [...] was seen on 09/26/24 over at [facility], provider Dr. Knight neurologist . Dr. Knight order few referrals for MRA brain and MRI , echo ,MRA w/ contrast , creation duplex all test done over at [facility] . The reason was Karena was schedule far out , [place] neurologist was sooner . KA RMA * Lu Bhardwaj NP - 10/03/2024 5:20 PM EDT What is the patient need? Also, neurology has been calling this patient to see her and she declinedneurology appointment. * Beba Gar MA - 10/03/2024 2:34 PM EDT Last seen 09/19/24, referral pended. * Keiry Brody - 10/03/2024 2:26 PM EDT Myrna from [facility] returning missed call Would like a call back * Beba Gar MA - 10/03/2024 2:21 PM EDT Need more info. Left message to caller to call the office back, I am at extension [phone] * Savannah Carvalho - 10/03/2024 2:08 PM EDT Referral Request: What insurance does the patient have today? [employer] Referrals cannot be processed if the insurance is not accurate. If the insurance listed above in red is NO BILLING INFORMATION FOUND FOR THIS ENCOUTNER The patients correct insurance must be obtained and registered in [facility] or their referral can not be processed. Who is calling to request this referral? Myrna nurse from [facility] If the caller is not the patient, [...] this visit: Initial Visit Address of Specialist: [address], [place] [address] Phone # of Specialist: [phone] Fax #: (if applicable): n/a Does patient have an appointment scheduled?: no Date of appointment- (including a retro-request): n/a Is this appointment related to: Not MVA, worker compensation, or surgery related documented in this encounter Plan of Treatment Upcoming Encounters Date Type Department Care Team (Late st Contact Info) Description 03/18/2025 2:00 PM EST Office Visit Nephrology - [facility] [address] [place], [place] [phone] Wagner Herrera MD [address] [place] [address] documented as of this encounter Visit Diagnoses Diagnosis TIA (transient ischemic attack)- Primary Unspecified transient cerebral ischemia documented in this encounter Additional Health Concerns Assessment Noted Time PHQ-9 Depression Total Score: 9 09/14/19 11:07 AM EDT documented as of this encounter Care Teams Qa Test Lead Relationship Specialty Start Date End Date Jody Roland MD [address] [place], [place] PCP - General Internal Medicine 10/25/24 documented as of this encounter
--- OUTSIDE RECORDS SUMMARY | 2025-01-15 19:45 | XMS_ITS | Clinical Summary ---
Author Organization [facility] [address] [facility] Building Address [address] [place] [address] Phone Care Team Providers Care Coach Name Role Phone Jody Roland MD Primary Care Provider [phone] Allergies Active Allergy Reactions Criticality Noted Date Comments Tramadol Rash 11/08/2023 Trazodone Rash 11/08/2023 Acetaminophen Headache 04/08/2024 Per pt Medications UNKNOWN TO PATIENT Incontinence Supply Disposable (Poise [...] mouth 3 (three) times a day. Active blood-glucose transmitter (Dexcom G6 Transmitter) deviceIndicati ons:Type 2 diabetes mellitus with other diabetic kidney complication ([facility] [place]24, [facility] V28) Change transmitter every 3 months 3 each 3 Active nystatin (MYCOSTATIN) 100,000 unit/gram powder APPLY TO AREA OF CONCERN 2-3 TIMES PER DAY WHENEVER RASH IS PRESENT. 15 g Active buPROPion XL (WELLBUTRIN XL) 150 mg 24 hr tablet Take 1 tablet (150 mg total) by mouth 1 (one) time each day in the morning. 90 tablet Active lidocaine (LIDODERM) 5 % patchIndicatio ns:Essential hypertension, benign,Type 2 diabetes mellitus with microalbuminur ia, with long-term current use of insulin ([facility] V24, [facility] V28) Apply topically 1 (one) time each day. Place 1 Patch onto the skin every 24 hours. Apply for no more than 12 hours in any 24 hour period. - Transdermal 90 patch Active ammonium lactate (AmLactin) 12 % lotion Apply topically if needed for dry skin. 400 g 06/26 Active amLODIPine (NORVASC) 2.5 mg tablet [...] 3 (three) times a day. Acti ve glucagon 1 mg/0.2 mL auto-injectorI ndications:Typ e 2 diabetes mellitus with diabetic microalbuminur ia, with long-term current use of insulin ([facility] V24, [facility] V28) Inject 1 mg under the skin 1 (one) time if needed (severe hypoglycemcia) for up to 1 dose. Inject 1 Device into the skin as needed for Other (low blood sugar). - SubcutaneousInject 1 Device into the skin as needed for Other (low blood sugar). - Subcutaneous 1 each Active insulin glargine (LANTUS SoloStar) 100 unit/mL (3 mL) injection pen Inject 10 Units under the skin at bedtime. 15 mL Active blood-glucose meter (WageWorksTouch Verio Flex meter) misc Use to check BS 3 times a day 1 each Active blood sugar diagnostic (WageWorksTouch Verio test strips) test strip Use to check BS 3 times a day 100 each 12/03 Active lancets lancets Check blood sugar 3 times a day or as directed. Onetouch delica 1 each 12/03 Active naproxen (NAPROSYN) 500 mg tablet [...] TIME EACH DAY. 90 tablet 1 Active cholecalcifero l (VITAMIN D-3) 50 mcg (2,000 unit) tabletIndicati ons:Vitamin D deficiency, unspecified TAKE 1 TABLET BY MOUTH EVERY DAY 90 tablet Active oxyCODONE (ROXICODONE) 10 mg immediate release tabletIndicati ons:Other chronic pain Take 0.5 tablets (5 mg total) by mouth every 8 (eight) hours if needed for severe pain for up to 28 days. Max Daily Amount: 15 mg 42 tablet 01/27 Active pen needle, diabetic (BD Ultra-Fine Short Pen Needle) 31 gauge x 5/16 needleIndicati ons:Type 2 diabetes mellitus with diabetic microalbuminur ia, with long-term current use of insulin ([facility] V24, [facility] V28) Use to inject 4 times daily as directedUse to inject 4 times daily as directed 400 each 11 Active doxycycline (VIBRAMYCIN) 100 mg capsule Take 1 capsule (100 mg total) by mouth 2 (two) times a day for 10 days. Take with at least 8 ounces (large glass) of water, do not lie down for 30 minutes after. Administer 2 hours before or after multivitamins, antacids, or other products containing polyvalent cations (i.e., calcium, iron, magnesium, selenium, zinc). 20 each 01/25 Active insulin aspart (NovoLOG) 100 UNIT/ML patient supplied pump Inject 2-10 Units into the skin 3 times daily (before meals). Inject three times a day with meals per scale IB BS 100-150: 7 units; 151-200: 8 unit; 201-250: 9 units; 251-300: 10 units; 301-350: 11 units; 351-400: 12 units - Subcutaneous, Plus 2 units for a high carb meals 01/15 Discontinued( Formulary change) cholecalcifero l (VITAMIN D-3) 50 mcg (2,000 unit) tabletIndicati ons:Vitamin D deficiency, unspecified TAKE 1 TABLET BY MOUTH EVERY DAY 90 tablet 12/30 Discontinued atorvastatin (LIPITOR) 10 mg tablet Take 1 tablet (10 mg total) by mouth 1 (one) time each day. 90 each 1 12/17 Discontinued lisinopriL (PRINIVIL,ZEST RIL) 20 mg tablet Take 1 tablet (20 mg total) by mouth 1 (one) time each day. 90 tablet 1 12/17 Discontinued hydroCHLOROthi azide (HYDRODIURIL) 50 mg tablet Take 1 tablet (50 mg total) by mouth 1 (one) time each day. 90 tablet 1 12/175 Discontinued oxyCODONE (ROXICODONE) 10 mg immediate release tabletIndicati ons:Other chronic pain Take 0.5 tablets (5 mg total) by mouth every 8 (eight) hours if needed for severe pain for up to 28 days. Max Daily Amount: 15 mg 42 tablet 12/30 Discontinued( Reorder) pen needle, diabetic (BD Ultra-Fine Short Pen Needle) 31 gauge x 5/16 needle Use to inject 4 times daily as directed 100 each 11 025 01/15 Discontinued( Reorder) Active Problems Problem Noted Date Diagnosed Date Transient neurological symptoms 08/30/2024 Morbid obesity 06/26/2024 CKD (chronic kidney disease) stage 2, [...] Encounters Date Type Department Care Team Description 01/15/2025 11:00 AM EST Office Visit Walk-In Clinic - [address] [phone] Gracie Guerra NP Abscess (Primary Dx) 01/15/2025 9:15 AM EST Office Visit Endocrinology - [address] [phone] Trish Hyatt PA Type 2 diabetes mellitus with diabetic microalbuminuria, with long-term current use of insulin (CMS/HCC V24, CMS/HCC V28) (Primary Dx); Essential hypertension, benign; Microalbuminuria 01/15/2025 Telephone [facility] [phone] Jody Roland MD 12/03/2024 7:45 AM EDT Office Visit Endocrinology [address] [phone] Trish Hyatt PA Type 2 diabetes mellitus with diabetic microalbuminuria, with long-term current use of insulin (CMS/HCC V24, CMS/HCC V28) (Primary Dx); Essential hypertension, benign; CKD (chronic kidney disease) stage 2, GFR 60-89 ml/min; Microalbuminuria 11/26/2024 3:00 PM EDT [facility] [phone] Andres Gunn NP Pain of left calf (Primary Dx) 11/06/2024 Results Follow-Up Internal Medicine - [address] [phone] Lu Chamberlain NP 10/23/2024 1:00 PM EDT Ancillary Procedure [facility] [address] [phone] Chest pain, unspecified type; Left arm pain 10/22/2024 Telephone [facility] - [facility] [phone] Darrel Tony MD 10/21/2024 9:15 AM EDT Ancillary Procedure [facility] [address] [phone] Chest pain, unspecified type; Left arm pain from Last 3 Months Immunizations Immunization Administration [...] CHOLECYSTECTOMY 1998 PROCEDURE: LAPAROSCOPY, CHOLECYSTECTOMY SECTION PROCEDURE: PA DELIVERY ONLY; COMMENT: X4 TUBAL LIGATION PROCEDURE: HISTORICAL TUBAL LIGATION CHOLECYSTECTOMY PROCEDURE: PA LAPAROSCOPY SURG CHOLECYSTECTOMY Medical History Medical History Date Comments Other pulmonary embolism and infarction 1998 DX:Other pulmonary embolism and infarction 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; COMMENT: scalp, arms; + biopsy 11/2005 Systemic lupus erythematosus ([facility] V24, [facility] V28) 09/01/2006 DX:Systemic lupus erythemato espinoza (HCC); COMMENT: DISCOID LESIONS, SUB-ACUTE SKIN LESIONS ARTHRALGIAS, MILD PROTEINURIA + Anti-DNA, Anti-SECURITY SCREENER, Anti-Sm, SS-A Esophageal reflux DX:Esophageal reflux Essential hypertension, benign 05/30/2005 D X:Essential hypertension, benign Obesity DX:Obesity 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 For example, child care sitter or elderly care for an older adult? [...] Orientation Straight 01/05/2024 2: 55 PM EST Last Filed Vital Signs Vital Sign Reading Time Taken Comments Blood Pressure 102/60 01/15/2025 10:52 AM EST Pulse 94 01/15/2025 10:52 AM EST Temperature 36.7 C (98 F) 01/15/2025 10:52 AM EST Respiratory Rate 18 08/30/2024 11:08 PM EDT Oxygen Saturation 98% 01/15/2025 10:52 AM EST Inhaled Oxygen Concentration - - Weight 119 kg (262 lb 12.8 oz) 01/15/2025 9:15 A M EST Height 167.6 cm (5' 6 ) 01/15/2025 9:15 AM EST Body Mass Index 42.42 01/15/2025 9:15 AM EST Plan of Treatment Upcoming Encounters Date Type Department Care Team (Late st Contact Info) Description 03/18/2025 2:00 PM EST Office Visit [facility]phrology - [facility] [address] [place] [address] Wagner Herrera MD [address] [place] [phone] Health Maintenance Due Date Last Done Comments Naloxone Order 1967 Pain Assessment 1967 Diabetes: Annual Foot Exam 04/14/1977 Hepatitis [...] 2024 , 11/26/2019, 12/06/2016, Additional history exists Drug Screen 03/02/2025 08/30/2024 Diabetes: Blood Sugar Control Test (HGBA1C) 03/22/2025 09/19/2024, 08/30/2024, 10/26/2023 Breast Cancer Screening 03/30/2025 03/30/2023 Diabetes: Annual Retina Eye Exam 07/02/2025 07/02/2024 Social Influencers of Health Screening 09/13/2025 09/13/2024 Diabetes: Annual GFR (Glomerular Filtration Rate) 09/19/2025 09/19/2024, 08/30/2024, 10/26/2023, Additional history exists Hypertension/CHF/CAD Annual BMP Blood Test 09/19/2025 09/19/2024, 08/30/2024, 10/26/2023, Additional history exists Opioid Substance Agreement 12/24/2025 12/23/2025 Cervical Cancer Screening: Pap Smear 05/02/2026 05/03/2023 DTaP,Tdap,and Td Vaccines (2 - Td or Tdap) 03/26/2028 03/26/2018 Colorectal Cancer Screening: Colonoscopy 10/11/2028 10/12/2023 Cholesterol Screening (Lipid Panel) 09/19/2029 09/19/2024, 08/30/2024, [...] Chest pain, unspecified type Left arm pain COMPREHENSIVE METABOLIC PANEL Routine 09/19/2024 2:00 PM EDT TIA (transient ischemic attack) Chest pain, unspecified type HEMOGLOBIN A1C Routine 09/19/2024 2:00 PM EDT Type 2 diabetes mellitus without complication, with long-term current use of insulin ([facility] V24, [facility] V28) LIPID PANEL WITH REFLEX TO DIRECT LDL Routine 09/19/2024 2:00 PM EDT Chest pain, unspecified type DRUG ABUSE SCREEN 8A PANEL, URINE Routine 08/30/2024 7:33 PM EDT EXTERNAL DIABETIC RETINA EYE EXAM 07/02/2024 EXTERNAL COLONOSCOPY REPORT Routine 10/12/2023 10:51 AM EDT PAP SMEAR Routine 05/03/2023 SCREENING MAMMOGRAPHY BI 2-VIEW BREAST INC CAD Routine 03/30/2023 9:57 AM EST Encounter for screening mammogram for malignant neoplasm of breast URINE ALBUMIN CREATININE RATIO Routine 08/30/2022 from Last 3 Months or Most Recently Relevant to Health Maintenance Results * External clinical lab (11/18/2024) Only the most recent of2 resultswithin the time period is included. Provider [facility] LAB BLOOD ORDERABLES Fin al Result * CARDIAC HOLTER MONITOR (REPORT GENERATED IN HOUSE) (10/23/2024 1:19 PM EDT) Anatomical Region Laterality Modality Cardiac Diagnost ic Narrative 11/04/2024 7:29 PM EDT [facility] DIAGNOSTIC TESTING DEPARTMENT [address] [place] [address] TEL: FAX: Type of Test: 48 Hour [...] CV STRESS PROCEDURES Final R esult * Lipid panel with reflex to direct LDL (09/19/2024 2:00 PM EDT) Cholesterol 137 0 - 200 mg/dL LAB CHEMISTRY METHOD 09/19/2024 3:54 PM EDT [facility] Triglycerides 106 0 - 150 mg/dL LAB CHEMISTRY METHOD 09/19/2024 3:54 PM EDT [facility] HDL 52 >=40 mg/dL LAB CHEMISTRY METHOD 09/19/2024 3:54 PM EDT [facility] LDL Calculated 64 0 - 100 mg/dL LAB CHEMISTRY METHOD 09/19/2024 3:54 PM EDT [facility] Comment:Estimated LDL Calcul ated using equation: Total cholesterol - HDL cholesterol - (Triglycerides/5) VLDL Cholesterol Bishop 21.2 mg/dL LAB CHEMISTRY METHOD 09/19/2024 3:54 PM EDT [facility] Non HDL Chol. (LDL+VLDL) 85 <145 mg/dL LAB CHEMISTRY METHOD 09/19/2024 3:54 PM EDT [facility] Chol/HDL Ratio 2.6 0.0 - 4.4 LAB CHEMISTRY METHOD 09/19/2024 3:54 PM EDT [facility] Blood Venous blood specimen / Unknown Venipuncture / Unknown 09/19/2024 2:00 PM EDT 09/19/2024 2:00 PM EDT us Lu Bhardwaj PHARMACY BENEFIT MANAGER LAB BLOOD ORDERABLES Final R esult Performing Organization Address [facility]/ZIP Co de Phone Number [facility] [address] [place] [address], [place] [phone] * Hemoglobin A1c (09/19/2024 2:00 PM EDT) Hemoglobin A1C 5.1 <6.5 % LAB CHEMISTRY METHOD 09/19/2024 9:44 PM EDT [facility] Mean Bld Glu Estim. 100 mg/dL LAB CHEMISTRY METHOD 09/19/2024 9:44 PM EDT [facility] Blood Venous blood specimen / Unknown Venipuncture / Unknown 09/19/2024 2:00 PM EDT 09/19/2024 2:00 PM EDT us Lu Bhardwaj PHARMACY BENEFIT MANAGER LAB BLOOD ORDERABLES Final R esult Performing Organization Address City/[facility]/ZIP Co de Phone Number [facility] [address] [place] [address], [place] [phone] * (ABNORMAL) Comprehensive metabolic panel (09/19/2024 2:00 PM EDT) Sodium 141 133 - 145 mmol/L LAB CHEMISTRY METHOD 09/19/2024 3:54 PM [facility] Potassium 4.2 3.5 - 5.5 mmol/L LAB CHEMISTRY METHOD 09/19/2024 3:54 PM [facility] Chloride 110 96 - 110 mmol/L LAB CHEMISTRY METHOD 09/19/2024 3:54 PM [facility] CO2 28 21 - 32 mmol/L LAB CHEMISTRY METHOD 09/19/2024 3:54 PM [facility] Anion Gap 3 3 - 11 LAB CHEMISTRY METHOD 09/19/2024 3:54 PM [facility] Glucose 80 70 - 100 mg/dL LAB CHEMISTRY METHOD 09/19/2024 3:54 PM [facility] BUN 17 5 - 25 mg/dL LAB CHEMISTRY METHOD 09/19/2024 3:54 PM [facility] Creatinine 1.19(H) 0.50 - 1.10 mg/dL LAB CHEMISTRY METHOD 09/19/2024 3:54 PM [facility] eGFR 53(L) >=60 mL/min/1. 73m2 LAB CHEMISTRY METHOD 09/19/2024 3:54 PM [facility] Comment:Calculation based on the Chronic Kidney Disease Epidemiology Collaboration (CKD-EPI) equation refit without adjustment for race. BUN/Creatinine Ratio 14.3 LAB CHEMISTRY METHOD 09/19/2024 3:54 PM [facility] Calcium 9.1 8.5 - 10.5 mg/dL LAB CHEMISTRY METHOD 09/19/2024 3:54 PM [facility] AST (SGOT) 16 10 - 42 unit/L LAB CHEMISTRY METHOD 09/19/2024 3:54 PM [facility] ALT (SGPT) 16 10 - 60 unit/L LAB CHEMISTRY METHOD 09/19/2024 3:54 PM EDT [facility] Alkaline Phosphatase 103 42 - 121 unit/L LAB CHEMISTRY METHOD 09/19/2024 3:54 PM EDT [facility] Total Protein 7.6 6.0 - 8.0 g/dL LAB CHEMISTRY METHOD 09/19/2024 3:54 PM EDT [facility] Albumin 3.5 3.2 - 5.0 g/dL LAB CHEMISTRY METHOD 09/19/2024 3:54 PM EDT [facility] Total Bilirubin 0.6 0.0 - 1.4 mg/dL LAB CHEMISTRY METHOD 09/19/2024 3:54 PM EDT [facility] Blood Venous blood specimen / Unknown Venipuncture / Unknown 09/19/2024 2:00 PM EDT 09/19/2024 2:00 PM EDT Lu Bhardwaj NP LAB BLOOD ORDERABLES Final R esult [facility] [address] [place] [address], * Drug abuse screen 8a panel, urine [...] LAB CHEMISTRY METHOD 08/30/2024 8:24 PM EDT [facility] Opiate Screen, Ur Negative Negative [...] CONFIRMATION DONE UPON REQUEST ONLY* Liss Puentes NP LAB URINE ORDERABLES Fin al Result [facility] [address] [place] [address], * External Diabetic Retina Eye Exam Report (07/02/2024) Anatomical Region Laterality Modality Ultrasound us Provider [facility] IMG US PROCEDURES Final Result * External Colonoscopy Report (10/12/2023 10:51 AM EDT) Anatomical Region Laterality Modality Endoscopy Historical Provider GI~PROCEDURE ORDERABLES F inal Result * Pap smear (05/03/2023) 05/03/2023 Narrative HISTORICAL TESTING LAB RESULTING AGENCY - 05/08/2023 2:56 PM EDT [id number] THINPREP PAP, IMAGED: NEGATIVE FOR SQUAMOUS INTRAEPITHELIAL [...] fective 2023-Present) Name:CHRIS DOYLE Relation to Subscriber:Self Name:Vivek, Filicia Payer ID:[id number] Group ID:[id number] Type:Not on file Address: [address] [place] [address] Advance Directives * Full Code - Confirmed [...] currently active code status orders. Care Teams Coach Relationship Specialty Start Date End Date Jody Roland MD [address] [place] [address] PCP - General Internal Medicine 10/25/24
--- OUTSIDE RECORDS SUMMARY | 2025-01-15 19:45 | XMS_ITS | Encounter Summary ---
Author Organization [place] [address] Care Team Providers Care Benefit Specialist Name Role Phone Jody Roland MD Primary Care Provider [phone] Reason for Visit * Reason Onset Date Comments In lobby 01/15/2025 Lump on neck Encounter Details Date Type Department Care Team (Late st Contact Info) Description 01/15/2025 Telephone Internal Medicine - [facility] [address] [place], [place] [phone] Jody Roland MD [address] [place] Social History Tobacco Use Types Packs/Day [...] ed Within the last 3 months, clarke w many times did you visit the [...] as of this encounter Progress Notes * Anita Ahn RN - 01/15/2025 10:31 AM EST Spoke with patient who came into lobby after appt with endocrinology this am. Stating she has a lump on her neck that is getting bigger and hardener. Also stating she has a abscess tooth . Scheduled an appt in [facility] and advised she would need to follow up with a Dentist. * Denisse Smith - 01/15/2025 10:11 AM EST Patient call requires triage: Symptoms patient is presenting: pt is in lobby. Has a lump on her neck. Says its getting bigger andharder. Thinks its infected. Says its very painful. Also has an abscess on her tooth. How long has patient had these symptoms?: 3 days For ALL patients calling to schedule any [...] traveled recently to another state outside of [place], [place], [place], [place], [place], [place], [place]? no o If yes, did you quarantine [...] of accident/Injury: No If yes, gather 3rd libertarian insurance information Third Democrat Information: not applicable PCP: Jody Roland MD Payor: [employer] MEDICARE / Plan: [employer] ONE CARE / Product Type: *No Product type* / documented in this encounter Plan of Treatment Upcoming Encounters Date Type Department Care Team (Late st Contact Info) Description 03/18/2025 2:00 PM EST Office Visit Nephrology - [facility] [address] [facility] [place] [address] Wagner Herrera MD [address] [place] [phone] documented as of this encounter Visit Diagnoses Not on filedocumented in this encounter Additional Health Concerns Assessment Noted Time PHQ-9 Depression Total Score: 9 09/14/19 25 11:07 AM EDT documented as of this encounter Care Teams Benefit Specialist Relationship Specialty Start Date End Date Jody Roland MD [address] [phone] PCP - General Internal Medicine 10/25/24 documented as of this encounter
--- OUTSIDE RECORDS SUMMARY | 2025-01-15 19:46 | XMS_ITS | Clinical Summary ---
Author Organization [facility] Facility Address [address] [address] Care Team Providers Care Type Casting Machine Operator Name Role Phone Unavailable Primary Care Provider [...] Cancer Screening: Sigmoidoscopy 04/14/2016 Pneumococcal Vaccine: 50+ Ye ars (2 of 2 - PCV) 03/26/2019 03/26/2018 Influenza Vaccine (#1) 2024 , 11/26/2019, 12/06/2016, Additional history exists Diabetes: Hemoglobin A1C 12/30/2024 0814/2 025, 09/19/2024, 08/30/2024 Diabetes: Ophthalmology Exam 12/30/2024, 09/20/2013, 07/07/2010, Additional history exists Diabetes: Pedal Pulse Checked 12/30/2024 Diabetes: Sensory Foot Exam 12/30/2024 Diabetes: Visual Foot Exam 12/30/2024 Pneumococcal Vaccine: Peds ( 0 to 5 Years) and At-Risk Patients (6 to 49 Years) Discontinued 03/26/2018
== END 2025-01-15 13:20 | disposition home or self-care (01) ==
LOC: HO.RHES 12:52
PROVIDERS: PCP Internal Medicine; Visit Provider Student in an Organized Health Care Education/Training Program
DX: M32.9 Systemic lupus erythematosus, unspecified (principal); R22.1 Localized swelling, mass and lump, neck; Z79.899 Other long term (current) drug therapy; Z79.620 Long term (current) use of immunosuppressive biologic
CPT/HCPCS: 99214; G2211

== ENCOUNTER 2025-01-15 12:51 | Outpatient (REF) | payer OTHER, SELFPAY ==
[2025-01-15 18:18] LABS: MANUAL DIFF FLAG NO
[2025-01-15 18:40] LABS: Hematocrit 37.0 % (37.0-47.0); Hemoglobin 11.9 g/dl (12.0-16.0); Imm Gran Abs Auto 0.01 X10*3/uL (0.00-0.03); Imm Gran Pct Auto 0.1 % (0.0-0.4); Lymphocytes Absolute Auto 3.0 X10*3/uL (1.2-4.9); Mean Corpuscular HGB Conc 32.2 g/dl (31.0-35.0); Mean Corpuscular Hemoglobin 29.3 pg (27.0-33.0); Mean Corpuscular Volume 91.1 fL (80.0-98.0); NRBC Abs Auto 0.000 X10*3/uL (0.0-0.012); NRBC Pct Auto 0.0 /100WBC (0.0-0.2); Platelet Count 201 X10*3/uL (160-400); Red Blood Count 4.06 X10*6/uL (4.20-5.50); White Blood Count 6.9 X10*3/uL (4.8-10.8)
[2025-01-15 18:54] LABS: Alanine Aminotransferase 13 U/L (0-31); Albumin Level 3.7 g/dL (3.5-5.0); Alkaline Phosphatase 99 U/L (39-117); Anion Gap 12 (12-20); Aspartate Amino Transferase 20 U/L (5-31); Blood Urea Nitrogen 23 mg/dL (9-16); Calcium 9.2 mg/dL (8.4-10.2); Carbon Dioxide 25 mmol/L (22-29); Chloride 108 mmol/L (96-108); Estimated Glomerular Filt Rate 55; Potassium 3.8 mmol/L (3.3-5.1); Sodium 141 mmol/L (135-145); Total Protein 7.2 g/dL (6.5-8.0)
[2025-01-15 19:33] LABS: Protein/Creatinine Ratio, Ur 0.06 (<0.2); Total Protein Urine Random 12 mg/dL (<12)
[2025-01-15 19:41] LABS: Appearance Urine Clear; Glucose Urine UA Negative (Negative); PH 5.5 (5.0-9.0); Specific Gravity - Urine 1.025 (1.005-1.025); UMIC TRIGGER UA YES
--- OUTSIDE RECORDS SUMMARY | 2025-01-15 20:51 | XMS_ITS | Data Portability ---
Author Organization [place] [facility] Address [address] [place] [id number] Care Team Providers Care Label Press Operator Name Role Phone [facility] Primary Care Provi nahum HIM [facility] OTHER Assessment No assessment recorded. Plan of Treatment Reminders Order Date Submit Date Provider Last Modified By Organization Details Last Modified Time Details Appointments None recorded. Lab BMP, serum or plasma [address], [address] [place] [address], [id number] 5 13:22:39 rapid SARS CoV 2 Ag, QL IA, respiratory specimen [address], [address] [place] [address], [id number] 5 13:22:39 rapid flu (A+B) [address] [place] [address], [address] [place] [address], [id number] 5 13:22:39 Referral None recorded. Procedures None recorded. Surgeries None recorded. Imaging None recorded. Medication Orders ondansetron 4 mg disintegrat ing tablet 2024 [facility] #[id number], [address] [place], [address], 5 12:41:16 Patient TargetsNo targets recorded. Patient [...] Name and Address Organization Details Recorded Time 40940 trazodone medicatio n Not available Not available Not available 03/19/2024 41177 RxNorm Not Available [facility] - production 5 10:04:02 62508 tramadol medicatio n Not available Not available Not available 03/19/2024 55957 [facility] 10:04[facility]02 Medications Name Sig [...] weight Body height Body temperature Oxygen saturation Respiratory rate Heart rate Systolic And Diastolic Provider Name and Address Organization Details Last Updated DateTime 5 556332. 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 On pipeline welder eval VS wnl, exam unremarkab le. POC [...] Member ID Guarantor Name 03/19/2024 1 [facility] - DOS ON OR AFTER 2022 - DUAL ELIGIBLE - GROUP HOME OPTIONS AND ONE CARE (MEDICARE REPLACEMENT/ADV ANTAGE - HMO) Galina Doyle [id number] Galina Doyle Notes Date Note Type Note Provider Name and Address Organization Details Recorded Time 03/19/2024 text/html [facility] Nurse Triage Notes (Dolly Gunderson - RN): Reason For Request: Pt reporting diarrhea>rattling in her chest>headache>cough Patient Reports: Cough, fever greater than 2 days ; Cough Denies: Increased work of breathing/labored with or without fever Unable to speak in full sentences without distress Discoloration of skin -cyanosis Needs to sleep sitting up, can t catch breath Shortness of breath in setting of confusion History of asthma, increased use of inhaler COPD Sputum increase Shortness of breath with exertion Pain with inspiration Chief Complaints: Cough, Headache, Diarrhea PMH: Diabetes Mellitus Type 2, Hypertension, Autoimmune Diseases (e.g., Lupus) PMH Reviewed at 03/19/2024 - 10:04 Allergies Reviewed at 03/19/2024 - 10:04 Comments: Marriage And Family Social Worker verified the name//address and phone number. [...] s/s and seek emergency treatment if needed [employer] Organization Information for [employer] Legal Name: [facility] Transportation Address: [address] [place] [address], [place] Cisneros [id number], Security Intelligence Analyst: Vito ROSSI No.: [id number] [employer] POC Test Results from [employer] united [...] .................... .................... .................... .................... .................... .................... . [employer]er Note From Abel Ron: This 58-year-old female [...] .................... .................... .................... .................... .................... .................... . [facility] [place] [facility] Consulted: Sushma Sanchez .................... .................... .................... .................... .................... .................... .................... . Disposition: Fulfilled Sushma Sanchez MD [address] [place] [address],[address] [facility], [place], [phone], [employer] 03/19/2024 13:23:04 OBGyn Episode No OBEpisode recorded.
== END 2025-01-15 12:52 | disposition home or self-care (01) ==
LOC: HO.HKASLDS 12:51
PROVIDERS: PCP Internal Medicine; Visit Provider Student in an Organized Health Care Education/Training Program
DX: M32.9 Systemic lupus erythematosus, unspecified (principal); R22.1 Localized swelling, mass and lump, neck; E55.9 Vitamin D deficiency, unspecified; Z79.899 Other long term (current) drug therapy; Z79.620 Long term (current) use of immunosuppressive biologic
CPT/HCPCS: 36415; 80053; 81001; 82306; 82570; 84156; 85025; 85652; 86140; 86160; 86225; 99212